=== PATIENT | female | born 1970 | race Caucasian/White ===

== ENCOUNTER 2023-10-09 11:15 | Outpatient (OUT) | payer MEDICARE, MEDICAID, SELFPAY ==
--- NOTE | 2023-10-09 11:34 | MM_ITS ---
Patient Name: HERMELINDO WEINBERG MR#: [id number] : 1970 Exam Date: 10/09/2023 Ordering Doctor: DR Chava Burciaga . RADIOLOGY REPORT PROCEDURE: MM TOMOSYNTHESIS SCREENING BI COMPARISON: MG MAMM KRUPA SCRN W CAD DIG, 05/23/2016. INDICATIONS: Screening Calculator Name NCI Breast Cancer Risk Assessment Tool 5 Year Breast Cancer Risk 0.90% Lifetime Breast Cancer Risk 7.80% Personal Breast Cancer No Personal Ovarian Cancer No Treatments None Family Cancers Father with prostate cancer at age ~70; Sister with pancreatic cancer at age 52; Aunt-paternal with colon cancer at age 70; Grandfather-maternal with lung cancer at age ~70; Grandmother-paternal with colon cancer at age ~70. LOCATION: [facility] BREAST COMPOSITION: Extremely dense, which lowers the sensitivity of mammography. FINDINGS: DIAGNOSTIC CATEGORY 2--BENIGN FINDING. NO CHANGE FROM COMPARISON. Scattered benign-appearing nodules are present. Scattered benign-appearing calcifications are present. Scattered benign-appearing lymph nodes are present. RIGHT BREAST: No significant suspicious finding. LEFT BREAST: No significant suspicious finding. Stable nodule upper outer quadrant, mid breast RECOMMENDATIONS: ROUTINE MAMMOGRAM AND CLINICAL EVALUATION IN 12 MONTHS. PLEASE NOTE: A NORMAL MAMMOGRAM DOES NOT EXCLUDE THE POSSIBILITY OF BREAST CANCER. A CLINICALLY SUSPICIOUS PALPABLE LUMP SHOULD BE BIOPSIED. Dictated by: Stephon Foote MD on 10/09/2023 at 13:35 Approved by: Stephon Foote MD on 10/09/2023 at 13:37
[2023-10-09 12:21] LABS: Basophils Absolute Auto 0.1 10^3/uL (0.0-0.1); Basophils Percent Auto 0.9 % (0.2-2.0); Eosinophils Absolute Auto 0.2 10^3/uL (0.0-0.7); Eosinophils Percent Auto 2.8 % (0.9-7.0); Hematocrit 35.5 % (36.0-48.0); Hemoglobin 11.5 g/dL (12.0-16.0); Immature Granulocytes Abs Auto 0.01 10^3/uL (0.00-0.03); Immature Granulocytes Pct Auto 0.2 % (0.0-0.5); Lymphocytes Absolute Auto 0.6 10^3/uL (1.2-3.8); Lymphocytes Percent Auto 11.1 % (20.5-60.0); Mean Corpuscular HGB Conc 32.4 g/dL (29.9-35.2); Mean Corpuscular Hemoglobin 27.3 pg (26.7-34.0); Mean Corpuscular Volume 84.3 fL (81.0-99.0); Mean Platelet Volume 9.2 fL (9.5-13.5); Monocytes Absolute Auto 0.6 10^3/uL (0.3-0.8); Monocytes Percent Auto 10.5 % (1.7-12.0); Neutrophils Absolute Auto 4.3 10^3/uL (1.4-6.5); Neutrophils Percent Auto 74.5 % (43.0-75.0); Platelet Count 351 10^3/uL (150-450); Red Blood Count 4.21 10^6/uL (4.20-5.40); Red Cell Distribution Width 13.2 % (11.0-15.0); White Blood Count 5.8 10^3/uL (4.0-11.0)
[2023-10-09 12:42] LABS: Estimated Average Glucose 137 mg/dL; Glycohemoglobin A1C 6.4 % (4.5-6.2)
[2023-10-09 12:55] LABS: Alanine Aminotransferase 21 U/L (14-59); Albumin Globulin Ratio 1.1; Albumin Level 3.5 g/dL (3.4-5.0); Alkaline Phosphatase 74 U/L (46-116); Anion Gap 9.7; Aspartate Amino Transferase 17 U/L (15-37); BUN Creatinine Ratio 23.2; Bilirubin Total 0.6 mg/dL (0.2-1.0); Calcium 9.4 mg/dL (8.5-10.1); Carbon Dioxide 35.1 mmol/L (21.0-32.0); Chloride 102 mmol/L (98-107); Chol HDL Ratio 2.1; Cholesterol 170 mg/dL (<=200); Estimated GFR (African America >60 (>=60); Estimated GFR (Non-African Ame >60 (>=60); Free T3 3.77 pg/mL (2.18-3.98); Globulin 3.2 g/dL; Glucose 130 mg/dL (74-106); HDL Cholesterol 81 mg/dL (40-60); Sodium 144 mmol/L (136-145); Thyroid Stimulating Hormone 0.501 uIU/mL (0.358-3.740); Total Protein 6.7 g/dL (6.4-8.2); Triglycerides 76 mg/dL (<=150); VLDL CHOLESTEROL 15.2 mg/dL
[2023-10-09 13:02] LABS: Potassium 2.8 mmol/L (3.5-5.1)
== END 2023-10-09 11:16 | disposition home or self-care (01) ==
PROVIDERS: PCP Family Medicine; Visit Provider Family Medicine
DX: Z12.31 Encounter for screening mammogram for malignant neoplasm of breast (principal); E11.9 Type 2 diabetes mellitus without complications; K58.9 Irritable bowel syndrome, unspecified; E78.5 Hyperlipidemia, unspecified; D64.9 Anemia, unspecified; E55.9 Vitamin D deficiency, unspecified; Z80.42 Family history of malignant neoplasm of prostate; Z80.8 Family history of malignant neoplasm of other organs or systems; Z80.0 Family history of malignant neoplasm of digestive organs; Z80.1 Family history of malignant neoplasm of trachea, bronchus and lung
CPT/HCPCS: 36415; 77063; 77067; 80053; 80061; 82306; 83036; 83540; 84436; 84443; 84481; 85025

== ENCOUNTER 2024-03-22 10:10 | Inpatient (IN) | payer MEDICARE, MEDICAID, SELFPAY ==
[2024-03-22] VITALS (16 sets, daily range): BP systolic 104–156; BP diastolic 77–102; PULSE 103–113; TEMP 36.2–36.7; O2SAT 95–99; BMI 21.3
--- NOTE | 2024-03-22 10:40 | CT_ITS ---
The [address] [address] Patient Name: HERMELINDO WEINBERG MRN: [id number] date: 1970 Sex: F Assigned Patient Location: ER Current Patient Location: Accession/Order Number: [id number] Exam Date: 03/22/2024 11:10 Report Date: 03/22/2024 12:09 At the request of: SKYLAR FIGUEREDO Procedure: CT abdomen pelvis w con EXAMINATION: CT abdomen pelvis w con HISTORY: Large left-sided abdominal wall abscess COMPARISON: No relevant comparison available. TECHNIQUE: Axial, Coronal, and Sagittal images were obtained without and/or with IV contrast as indicated by examination type. Dose reduction techniques were achieved by using automated exposure control and/or adjustment of mA and/or kV according to patient size and/or use of iterative reconstruction technique. FINDINGS: LUNG BASES: No visible pulmonary or pleural disease. LIVER: Irregular low density area within the hilum suspected represent collection of dilated bile ducts, with some extension more peripherally. Cholecystectomy. Dilated common bile duct with normal tapering distally. BILIARY: See above. PANCREAS: No lesion, fluid collection, or abnormal duct dilatation. SPLEEN: No enlargement or focal lesion. ADRENALS: No mass or enlargement. KIDNEYS: No mass, obstruction, or calcification. BOWEL/MESENTERY: No visible mass, obstruction, or bowel wall thickening. AORTA/VASCULAR: No aneurysm or dissection. RETROPERITONEUM: No mass or adenopathy. LYMPH NODES: No adenopathy. URINARY BLADDER: No visible focal wall thickening, lesion, or calculus. PELVIC ORGANS: Hysterectomy. ABDOMINAL WALL: Edema/inflammatory changes within subcutaneous fat of lower left anterior abdominal wall. No defined fluid collection, free air, or mass. Overlying skin thickening. BONES: No bony lesion or fracture. OTHER: Negative. CT/CT abdomen pelvis w con IMPRESSION: 1. Inflammatory changes within the lower left anterior abdominal wall subcutaneous fat and dermal layer consistent with patient history. No abscess. No involvement of the intraperitoneal structures. 2. Cholecystectomy and suspected dilated bile ducts within the liver hilum. No appreciable mass or obstructing stone. No prior studies for comparison. Electronically authenticated by: NEGRO BLACKMON Date: 03/22/2024 12:09
--- NOTE | 2024-03-22 10:41 | ED.GENADUL1 ---
HPI HPI - General Adult General Chief complaint: Skin/Abscess/Foreign Body Stated complaint: ABSCESS BY WAIST LINE Time Seen by Provider: 03/22/24 10:37 Source: patient Mode of arrival: walk-in Limitations: no limitations History of Present Illness HPI narrative: 54-year-old female presents to the emergency department for chief complaint of an abscess on her left abdominal wall. She has had this for more than a week but would not come in to get checked. She saw her PCP today who sent her here. There is been no drainage. It has been getting larger over the past several days. There is been no drainage and she has not had a fever. Related Data Home Medications ?Medication ?Instructions ?Recorded ?Confirmed buspirone 7.5 mg tablet 7.5 mg PO TID 03/22/24 03/22/24 carvedilol 12.5 mg tablet 12.5 mg PO TID 03/22/24 03/22/24 clonidine 0.3 mg/24 hr weekly 1 patch topical QWEEK 03/22/24 03/22/24 transdermal patch fesoterodine 4 mg tablet,extended 4 mg PO DAILY 03/22/24 03/22/24 release 24 hr meclizine 25 mg tablet 25 mg PO TID PRN dizziness 03/22/24 03/22/24 potassium chloride 10 mEq 10 meq PO BID 03/22/24 03/22/24 tablet,extended release rosuvastatin 5 mg tablet 5 mg PO QPM 03/22/24 03/22/24 tizanidine 4 mg tablet 8 mg PO TID 03/22/24 03/22/24 Allergies Allergy/AdvReac Type Severity Reaction Status Date / Time Penicillins Allergy Severe Verified 03/22/24 10:18 Sulfa (Sulfonamide Allergy Severe Hives Verified 03/22/24 10:18 Antibiotics) Opioid HPI Opioid Management Most Recent Opioid Data: Last ED Pain Assessment 03/22/24 10:43 Review of Systems ROS Narrative A ten point review of systems is negative except as noted above. [facility] Medical History (Updated 03/22/24 @ 12:44 by Bakari Forman MD) Multiple sclerosis ?G35 - Multiple sclerosis (ICD-10) HTN (hypertension) ?I10 - Essential (primary) hypertension (ICD-10) Exam Narrative Exam Narrative: Nurses note and vital signs reviewed and patient is not hypoxic. General: The patient appears well and in no apparent distress. Patient is resting comfortably on cart. Skin: Warm, dry, no pallor noted. There is no rash noted. Head: Normocephalic, atraumatic Ears, Nose, Mouth, and Throat: oral mucosa is moist. Nares patent. Cardiovascular: Regular Rate and Rhythm Respiratory: Patient is in no distress, no accessory muscle use, lungs are clear to auscultation, no wheezing, rales or rhonchi Back: non-tender GI: She has an area of erythema and induration and tenderness in the left lower abdomen. The area of induration is 16 cm transverse by 6 cm. Musculoskeletal: The patient has no evidence of calf tenderness, no pitting edema, symmetrical pulses noted bilaterally Neurological: Awake and Psychiatric: Cooperative Constitutional Vital Signs, click to edit/add: Last Vital Signs Temp 98.1 F 03/22/24 10:18 Pulse 103 H 03/22/24 11:52 Resp 16 03/22/24 11:52 BP 120/80 03/22/24 12:30 Pulse Ox 96 03/22/24 12:40 O2 Del Method Room Air 03/22/24 11:52 Course Vital Signs Vital signs: Vital Signs Temperature 98.1 F 03/22/24 10:18 Pulse Rate 113 H 03/22/24 10:18 Respiratory Rate 20 03/22/24 10:18 Blood Pressure 131/96 H 03/22/24 10:18 Pulse Oximetry 95 03/22/24 10:18 Oxygen Delivery Method Room Air 03/22/24 10:18 Temperature 98.1 F 03/22/24 10:18 Pulse Rate 103 H 03/22/24 11:52 Respiratory Rate 16 03/22/24 11:52 Blood Pressure 120/80 03/22/24 12:30 Pulse Oximetry 96 03/22/24 12:40 Oxygen Delivery Method Room Air 03/22/24 11:52 Medical Decision Making MDM Narrative Medical decision making narrative: WBC is elevated at 19,000. CT scan shows no collection of fluid, no evidence of an abscess. She was ordered IV vancomycin and is being admitted. Treatment diagnosis and disposition were discussed with the patient. Lab Data Lab results reviewed: Yes I reviewed the patient's lab results Labs: Lab Results 03/22/24 Range/Units 10:50 WBC 19.6 H (4.0-11.0) 10^3/uL RBC 4.56 (4.20-5.40) 10^6/uL Hgb 12.9 (12.0-16.0) g/dL Hct 39.7 (36.0-48.0) % MCV 87.1 (81.0-99.0) fL MCH 28.3 (26.7-34.0) pg MCHC 32.5 (29.9-35.2) g/dL RDW 15.2 H (11.0-15.0) % Plt Count 349 (150-450) 10^3/uL MPV 10.1 (9.5-13.5) fL Neut % (Auto) 87.2 H (43.0-75.0) % Lymph % (Auto) 3.3 L (20.5-60.0) % [place] % (Auto) 7.1 (1.7-12.0) % Eos % (Auto) 0.5 L (0.9-7.0) % Baso % (Auto) 0.3 (0.2-2.0) % Neut # (Auto) 17.1 H (1.4-6.5) 10^3/uL Lymph # (Auto) 0.7 L (1.2-3.8) 10^3/uL [place] # (Auto) 1.4 H (0.3-0.8) 10^3/uL Eos # (Auto) 0.1 (0.0-0.7) 10^3/uL Baso # (Auto) 0.1 (0.0-0.1) 10^3/uL Abs Immat Gran (auto) 0.31 H (0.00-0.03) 10^3/uL Imm/Tot Granulo (auto) 1.6 H (0.0-0.5) % Sodium 138 (136-145) mmol/L Potassium 3.8 (3.5-5.1) mmol/L Chloride 100 (98-107) mmol/L Carbon Dioxide 29.3 (21.0-32.0) mmol/L Anion Gap 12.5 BUN 26.0 H (7.0-18.0) mg/dL Creatinine 0.72 (0.55-1.02) mg/dL Est GFR ( Amer) >60 (>=60) Est GFR (Non-Af Amer) >60 (>=60) BUN/Creatinine Ratio 36.1 Glucose 380 H (74-106) mg/dL Lactate 1.9 (0.4-2.0) mmol/L Calcium 9.7 (8.5-10.1) mg/dL Imaging Data CT scan - abdomen: Radiologist's impression: ITS Impressions Abdomen/Pelvis CT 03/22/24 10:40 IMPRESSION: 1. Inflammatory changes within the lower left anterior abdominal wall subcutaneous fat and dermal layer consistent with patient history. No abscess. No involvement of the intraperitoneal structures. 2. Cholecystectomy and suspected dilated bile ducts within the liver hilum. No appreciable mass or obstructing stone. No prior studies for comparison. Electronically authenticated by: NEGRO BLACKMON Date: 03/22/2024 12:09 Discharge Plan Discharge Chief Complaint: Skin/Abscess/Foreign Body Clinical Impression: Cellulitis Patient Disposition: Admitted As Inpatient Time of Disposition Decision: 12:43 Condition: Fair
[2024-03-22 11:27] LABS: Basophils Absolute Auto 0.1 10^3/uL (0.0-0.1); Basophils Percent Auto 0.3 % (0.2-2.0); Eosinophils Absolute Auto 0.1 10^3/uL (0.0-0.7); Eosinophils Percent Auto 0.5 % (0.9-7.0); Hematocrit 39.7 % (36.0-48.0); Hemoglobin 12.9 g/dL (12.0-16.0); Immature Granulocytes Abs Auto 0.31 10^3/uL (0.00-0.03); Immature Granulocytes Pct Auto 1.6 % (0.0-0.5); Lymphocytes Absolute Auto 0.7 10^3/uL (1.2-3.8); Lymphocytes Percent Auto 3.3 % (20.5-60.0); Mean Corpuscular HGB Conc 32.5 g/dL (29.9-35.2); Mean Corpuscular Hemoglobin 28.3 pg (26.7-34.0); Mean Corpuscular Volume 87.1 fL (81.0-99.0); Mean Platelet Volume 10.1 fL (9.5-13.5); Monocytes Absolute Auto 1.4 10^3/uL (0.3-0.8); Monocytes Percent Auto 7.1 % (1.7-12.0); Neutrophils Absolute Auto 17.1 10^3/uL (1.4-6.5); Neutrophils Percent Auto 87.2 % (43.0-75.0); Platelet Count 349 10^3/uL (150-450); Red Blood Count 4.56 10^6/uL (4.20-5.40); Red Cell Distribution Width 15.2 % (11.0-15.0); White Blood Count 19.6 10^3/uL (4.0-11.0)
[2024-03-22 11:37] LABS: Anion Gap 12.5; BUN Creatinine Ratio 36.1; Calcium 9.7 mg/dL (8.5-10.1); Carbon Dioxide 29.3 mmol/L (21.0-32.0); Chloride 100 mmol/L (98-107); Estimated GFR (African America >60 (>=60); Estimated GFR (Non-African Ame >60 (>=60); Glucose 380 mg/dL (74-106); Potassium 3.8 mmol/L (3.5-5.1); Sodium 138 mmol/L (136-145)
[2024-03-22 11:44] LABS: Lactate/Lactic Acid 1.9 mmol/L (0.4-2.0)
[2024-03-22] MEDS: VANCOMYCIN HCL 1,000 MG in 0.9 % SODIUM CHLORIDE 250 ML 250 MG IV (12:55)
--- NOTE | 2024-03-22 13:10 | P.HP_ITS ---
HPI H&P: HPI History of Present Illness Chief complaint: ABSCESS BY WAIST LINE Narrative: Patient seen by my nurse practitioner in our office, referred to ER for possible abscess formation. Your workup just found cellulitis, but significant for dehydration and severe cellulitis with leukocytosis I saw patient in the emergency room, she was resting comfortably in the bed, just has pain with any activity. Area erythema was increasing in size was the reason for being evaluated. Opioid HPI Opioid Management Most Recent Opioid Data: Last Pain Assessment 03/23/24 08:00 Last ED Pain Assessment 03/22/24 10:43 Last ORT Total Score 0 03/22/24 14:09 Last ORT Risk Category Low Risk 03/22/24 14:09 Review of Systems ROS Status of ROS 10 or more systems reviewed and unremark able except as noted in history and below [facility] Medical History (Updated 03/22/24 @ 14:55 by Ayesha Moon) Encounter for cholecystectomy ?Z76.89 - Persons encountering health services in other specified circumstances (ICD-10) Multiple sclerosis ?G35 - Multiple sclerosis (ICD-10) HTN (hypertension) ?I10 - Essential (primary) hypertension (ICD-10) Surgical History (Updated 03/22/24 @ 14:55 by Ayesha Moon) H/O hysterectomy for benign disease ?Z90.710 - Acquired absence of both cervix and uterus (ICD-10) Social History (Updated 03/22/24 @ 14:56 by Ayesha Moon) Within the past year, how often did you have a drink containing alcohol: never Score interpretation: A score less than 3 is consistent with normal alcohol consumption. Smoking status: Never smoker Non-prescribed substance use: denies use Previous occupational history: disabled Meds Home Medications and Allergies Home Medications ?Medication ?Instructions ?Recorded ?Confirmed ?Type buspirone 7.5 mg tablet 7.5 mg PO TID 03/22/24 03/22/24 History carvedilol 12.5 mg tablet 12.5 mg PO TID 03/22/24 03/22/24 History clonidine 0.3 mg/24 hr weekly 1 patch topical QWEEK 03/22/24 03/22/24 History transdermal patch fesoterodine 4 mg tablet,extended 4 mg PO DAILY 03/22/24 03/22/24 History release 24 hr potassium chloride 10 mEq 10 meq PO BID 03/22/24 03/22/24 History tablet,extended release rosuvastatin 5 mg tablet 5 mg PO QPM 03/22/24 03/22/24 History tizanidine 4 mg tablet 8 mg PO TID 03/22/24 03/22/24 History Allergies Allergy/AdvReac Type Severity Reaction Status Date / Time Penicillins Allergy Severe Verified 03/22/24 10:18 Sulfa (Sulfonamide Allergy Severe Hives Verified 03/22/24 10:18 Antibiotics) Exam Constitutional Vital Signs, click to edit/add: Last Vital Signs Temp 98.1 F 03/22/24 10:18 Pulse 103 H 03/22/24 11:52 Resp 16 03/22/24 11:52 BP 120/80 03/22/24 12:30 Pulse Ox 96 03/22/24 12:40 O2 Del Method Room Air 03/22/24 11:52 Documenting provider has reviewed patient's vital signs: yes Common normals: no apparent distress Lymph Lymphatic: no lymphadenopathy noted Chest Common normals: inspection of chest normal Respiratory Common normals: normal respiratory effort and no retractions Cardio Common normals: regular rate and regular rhythm GI Common normals: negative for Normal to inspection, nondistended, normoactive erick wel sounds present (Erythema in groin, area with calor and dolor also) Results Labs Labs: Short CBC 03/22/24 Range/Units 10:50 WBC 19.6 H (4.0-11.0) 10^3/uL Hgb 12.9 (12.0-16.0) g/dL Hct 39.7 (36.0-48.0) % Plt Count 349 (150-450) 10^3/uL [facility] 03/22/24 10:50 Sodium 138 Potassium 3.8 Chloride 100 Carbon Dioxide 29.3 BUN 26.0 H Creatinine 0.72 Glucose 380 H Calcium 9.7 Assessment and Plan Assessment and Plan (1) Cellulitis: Plan Sinus tachycardia, leukocytosis, severely elevated sugar due to abdominal wall cellulitis, no abscess formation, start patient on IV antibiotics. Blood cultures pending. With erythema rapidly progressing concern for rapid spread along the abdominal wall. Need to be aggressive with the antibiotics IV. Hyperglycemia-patient not diagnosed with diabetes in the past. Sugar over 300 consistent with diabetes. Start patient on insulin sliding scale. Likely discharge home on oral medications. Dehydration which may be secondary to the diabetes and the abdominal wall cellulitis. IV fluids. Admission status: With the severity of the cellulitis and the rapid progression, concerning for the spreading along the abdominal wall. She would likely need 3 to 4 days of IV antibiotics. Medically necessary treatment will span 2 midnights. Inpatient status.
[2024-03-22 13:59] LABS: C Reactive Protein 4.31 mg/dL (<=0.50)
[2024-03-22 14:03] LABS: Alanine Aminotransferase 25 U/L (14-59); Albumin Globulin Ratio 0.7; Albumin Level 2.6 g/dL (3.4-5.0); Alkaline Phosphatase 122 U/L (46-116); Aspartate Amino Transferase 10 U/L (15-37); Bilirubin Direct 0.1 mg/dL (0.0-0.2); Bilirubin Total 0.7 mg/dL (0.2-1.0); Globulin 3.5 g/dL; Total Protein 6.1 g/dL (6.4-8.2)
[2024-03-22 14:05] LABS: Lactate/Lactic Acid 1.6 mmol/L (0.4-2.0)
--- OUTSIDE RECORDS SUMMARY | 2024-03-22 14:07 | XMS_ITS | CCD ---
Author Organization [facility] Care Team Providers Care Poultry Husbandman Name Role Phone ELTAHAWY, EHAB A Unavailable Unavailable ELTAHAWY, EHAB A Unavailable Unavailable HOY, KRISHAN Unavailable Unavailable HOY, KRISHAN Unavailable Unavailable HOY, DR NICKERSON Admitting Unavailable HOY, DR NICKERSON Attending Unavailable HOY, DR NICKERSON Primary Care Unavailable HOY, DR NICKERSON Consulting Unavailable MISC, DR HERNANDEZ Admitting Unavailable MISC, DR HERNANDEZ Attending Unavailable HOY, DR NICKERSON Primary Care Unavailable MISC, DR HERNANDEZ Consulting Unavailable ZIEBER, DR NEGRO Quan Consulting Unavailable MISC, DR HERNANDEZ Admitting Unavailable MISC, DR HERNANDEZ Attending Unavailable HOY, DR NICKERSON Primary Care Unavailable MISC, DR HERNANDEZ Consulting Unavailable HOY, DR NICKERSON Admitting Unavailable HOY, DR NICKERSNO Attending Unavailable HOY, DR NICKERSON Primary Care Unavailable Marshal Padilla Referring Unavailable Marshal Padilla Attending Unavailable Marshal Padilla Admitting Unavailable MARSHAL PADILLA Attending Unavailable MARSHAL PADILLA Attending Unavailable Allergies Allergy Classification Reported Allergen(s) Allergy Type Date of Onset Reaction(s) Facility (1 source) Penicillins Drug allergy (disorder) 06-02-2015 [facility] Repository (2 sources) Sulfonamides (Antibiotic) Drug allergy (disorder) 09-14-2013 [facility] Repository (1 source) hydrALAZINE Drug Allergy 04-15-2021 [facility] Repository (1 source) Penicillin Drug Allergy 09-14-2013 [facility] Repository Problems Active Problems Problem Classification Problem Date Documented Da te Episodic/Chronic Diabetes mellitus without complication (1 source) Type 2 diabetes mellitus without complications; Translations: [TYPE 2 DM WITHOUT COMPLICATIONS] Onset: 11-17-2022 Chronic Essential hypertension (1 source) Essential (primary) hypertension; Translations: [ESSENTIAL PRIMARY HYPERTENSION] Onset: 11-17-2022 Chronic Multiple sclerosis (4 sources) Multiple sclerosis; Translations: [MULTIPLE SCLEROSIS] Onset: 10-09-2022 Chronic Nutritional deficiencies (1 source) Vitamin D deficiency, unspecified; Translations: [VITAMIN D DEFICIENCY UNSPECIFIED] Onset: 11-17-2022 Chronic Other circulatory disease (4 sources) Stricture of artery; Translations: [STRICTURE OF ARTERY] Onset: 06-26-2016 Chronic Unclassified (2 sources) Unknown / UNK(Unknown) Onset: 06-26-2016 Past or Other Problems Problem Classification Problem Date Documented Da te Episodic/Chronic Nonspecific chest pain (1 source) Chest pain, unspecified; Translations: [CHEST PAIN, UNSPECIFIED] Onset: 06-26-2016 Episodic Unclassified (1 source) Other general symptoms and signs; Translations: [OTHER GENERAL SYMPTOMS AND SIGNS] Onset: 06-26-2016 Episodic Results Test Name Value Interpretation Reference Range Facility PT - Assessmentson PT - Assessments [id number]#1 .00CD:127 Normal [facility] Coding Summary.on 11-18-2022 Coding Summary. CD:[id number] G h0bWw+PGhlYWQ+QI0RYSX fF70tbUCypK3AB0vNNI7K XZUXYBLDME1ZBC2nqYL0C MozV6MeryEf MseppCQdET66OCh6NOP0o SzuRDvyiC6yoUTvY2m8Hh BmMO74nU58IItmQYQzFoU 3LjZpbjsgbWFy A9siZbOcmIHwWfi+PHRhY mxlIHdpZHRoPScxMDAlJy GbzCbiZJ5mPd5zJSDmNDK vbGxhcHNlOiBj o5nkHUKpNZlrFB6qyYrdJ 9LssIB2PVEiw0s3St51zK I+NQNfPWR2eTaeGKanw58 3QjYdi2ckNWS5 sYDpGWguFNV3V42qo8S3E RNeFLQlMDJ5wWQ5oW9gnB xlaqyuE3YeoCCaDuG9XUT 9zBVyuD7pnNpo yyyorA8pNey+U81TRB0MJ XHQWT7SMvm9O7JgEovvbK I+AW38ZOUoBG22dNRzkVY oq6yfbIm3HtAp LXJvBUJ2zFjlFQclv7ArS PMnO57hkYIwj8Q6ONAhgN hxzDCtEiHhfZZ4bK1rZGr druaof3ccbtdt Xscbp9fdgg88eK70I07vS RyyQFOjCBZ9GBCyVLFhhS jncw3wyF4mTo2+JLanb5s dv6iuiWe5PqBi OUWuljTihQypSLH0d8XrZ k00O8KoiXopv0QfFqs3jz 65wEPgw3Y8xNA5JCknAQC qqX6jQOonNbS0 NYXiAhDjqJ05eVMwKDpuB g2hhUmzaYgcZA6mSPSmiw adSHXgbT3oNHOvhXCxqJk xDD1pUBSaldqt z165CmLgTDR4RONhjBVyS 2UclN5uKkQwNXKaSLKwO4 UudBSqLGocM124PJbdHsC 6NVXvduRmF3Ct URAktJpeWdT4k1B6Fe8Zy 3ImnhenSKG8LLtjWVUwGl E0HsZaQdN0F6GnTjd1KAD ogOzmCE2zS4Md UQOyeycmltloqUU0ABUkZ MVniH04tZEzYPluRu6ft7 V3a179NFClCKCcvV15Hy0 udDogMTBwdCBU kE3mxhnsh9alzamvFvSuA ZZtAHw5QPp9NKBwyIgaQy XjDWC3UvJ1MVT6eIVehD3 cvBlkjfcfnS0k Oyc+B85lwH8xWRM6JTV6s qaeUZViavHcDC18RP51U7 RyPjwvdGFibGU+PGRpdiB iaLmrZN3gPqXv f0htn6AyUXxdX3DkIGBgG AdwDsz9TURpPTS7oJO9hH 0hPUBmSFcts8K4qWC9K2I kahAysx6ez9je WFYuDJqkH18dkWJib9J1B LYayXS0QGFmdWshDkTwnH 93Oyc+FYZtpSyuu3FpVzv bh2oio6xehRd0 AvCmFFScccZgmYdkXDW6x 1ZqHj45U81hDIbpCQAaTS ZeJMZnXXWskHacwv9tvW3 wIi8+PGNvbCB3 pJN8qF6eLYFkBoK0SOwwE 272FtVkuPYhXgglu7awe3 xjcPj3TlQhQSLxrtDsdWr uELR9y1SyJk81 Y86xNTdyGINxSXMjSEIrC KJwdTrnlk7boA6oNm3+PC 6ak2qlbx65zO58vIX+PHR gEPJ0uItdPUmi MNXskB7bAVzfBwP8QYAnT wRxoK79lVWjCLkrLv3erK qkwZgbNN5gWLUjqomlj94 1JcFhl8hePSSg hMOcOFgwPIR0L59sk8D2B SBoGQDvRXG1yRY0rJ4pdG lnbjogbGVmdDsgdmVydGl xRVefDOdxA147 IHRvcDsnPlBhdGllbnQgT tRzOJd2W9PkLio6CURkoD euZQ0pqLToZIvyLk0keHa sfWuvJB9zVVAz xwusb383CqXmj0tcMLYnt SZmWLfoIHW4G63ho9U0UY HfPKNwONI7zPU4tE9myHm nbjogbGVmdDsg wiMqyMetJBwzJLesP435Z HRvcDsnPkJpcnRoIERhdG E8YF67GY90oDNky4F0aRT 1H3SiLOSkajjr pdghxWM4URQhCZKwoX96J e9qjKgePy6tEUXeWSA0UT IzlVMvO7WanO2rPiFgHBV nFKCcQ0WoaWRm ZImkE472ZPzuRaD9GJThn vZuE9GiIDOrtDubVbG5g1 M9Bl1FJ8B0WL30TC79rHP oy2K8pHF7I3Ev HMEejtrvyzunmRA1QJUnQ ZPbdE41Tu3rfUsbDl4kXJ MzJKB9CTXpyEPfG6AmdW9 yOiAjMDAwMDAw V5AazPGdLBjsY501TFtoC uI2DGLbksFcM6OrGNWasB mzFwW4d5O6Mq6BJTd7PT5 7IF22wSIbz3A0 yDF2C0HbMLBbxwfrdyzdc GG7EKIuSELjiP31Un3gbY fgEb0eKDArSTV5CHQutMQ mL2JswQ8xOaZo WIReLVAiS4SlcMPzTOetL 093LJzeXiF1SORjgoSpS3 YnNZQfbZrzPwF1t6Y6Hi1 DXCOgKH46BIJ6 xRC7KQ53VK18I6RiDaobv GFibGU+PHRhYmxlIHdpZH RoPScxMDAlJyBzdHlsZT0 zQt1tMUVrIVXq rAvicTBqOrGne2asPCYgM EvqDN7qkYdqZ4BhqOO6FQ Ikw2e3Pd58V95mC2OpaQA +QVUbtLW7mXD9 rQ0fVsWcArH2CYqwS226I wWloRBaIrbky5eok9bnmL o3BcL3QOKuveSddEfbXTH 4m7KvWc17M91z IHdpZHRoPSIxNSUiIHZhb Tgdyn4pmU1xQu3+PGNvbC N6mIU0iT7dRyTjTwA3XVv yM269FzDliESi Xvojz9xjs2frwAd6OrWmE LAnsjBlfPxyUWL6p5OlGs 64Y2VwqQsod1PhJeb5ga9 6jMOgw6Q3fAG7 N2JxETLvdvrpyRFmcIwsS W2vWLWtgdyyORDbgO0tVL AnU1j4FlCcHcZ8WJanZ2E ercM0BSCciQPz DKweDNB1V62sf8N8BUHzB BAsGFM4dHW0dX1nqLphkd ogbGVmdDsgdmVydGljYWw hRBemJ363FVCa cTreWBOgkJ7yWSDtnNWbp OzuYK5lHMQdmteyFmKYSR rLFWTYR5OGDsUUEE90HT5 0mGEoe7Q1uYP1 W2LtRTHggvfbgmsjgND9W GYaADIgvX44gFIcTVgxDb 3lw7M5q851QSBgLQCboK9 9Sa3yjJkfDPYx oPZZgS6fipaiw0bnlvkyI bZcNLDiBNw9BFc7VHDpdH qqUpOmKNP9XkL3MNP6yKI utW4baTvkcakm oS7wQgy+ZYOiYAsjXMh0P TwvdGQ+AKGfOMV4bIfhMC hzTCCkdR5fGRLeD6u4SjL qSqV0AVvmH0Ny JIIxhxjmAv17kR0aDzVqK zD6KPoiZ7BohvA3VWFofL UwSPqfUSV8Z67jy4N9ZEM wEBNdTAF8qWY2 lS4whTvuauugcSQkpByhh kLdxKedXVzgFWwhO146PN RvcDsnPjUxIFllYXJzPC9 2US16kUSdl8P0 dSS8Y5LbTUBsbcmygmbfy ZZ9EOGuSIMzpD12vBOmVL zlUr9gb5S4p699TYWrYBC cbE85Au1qrCpg UPQuoYEXiU1jxygph5zwr tcmLaKjZKVcCKo6RRi4JV XscZddOzAtBBC1BwQ6WGG 4eYBruA1sqQoa xizsxV2xPrn+RmVtYWxlP K86GH66vLPqm0R7aKP6V7 MyZRLisaebvfwtrZB9JHH hODUigE17eZCg YMlfTc9ij4X1g789OSBfU LFoxI52Mf7jiFffQBGinE JNnK6wftekx3hinqzyBwR zKXQaBLw3NEs9 SJLezIzeVaPbSQQ5IkH3R UJ6kOGxiL1ftDtqrkndkM 9wOyc+IpGftAFpxN1sTB8 1TX99Q3FwHspc dGFibGU+PHRhYmxlIHdpZ HRoPScxMDAlJyBzdHlsZT 9pFo4iBYMqINFdoRqmyBC aPlAel4gkDOUt UNfyBQ6pmIzvX8EocWJ4C KArt3p1Ve11A60bQ9UctX A+NEYcmOP5jLI1nQ8eEmS wPyG4EPjvD570 VeZfqGBkJbwzd6aeo2yxa Ig4JtRhSQVudiDinPehAO L7v8GkZt79D73yVIvgOTY oPSIyMCUiIHZh tKoohy6neR0bDc2+PGNvb SK8aQW1oW7wGmYyKmK2KO tsM783AnSwqAOqWogoJ84 jA3GqtNR+PHRy Pvb4SOXjuAuvBQ1vzDEgW AceSo6jJCB7OkIhJqDdQA ciA6VpSCAiwwunylnqmED 6BSIfUSQaeH41 Jy4yyOeaRk9xUPPuKMP3Z CIixWCuZ1UpdR1kZuUlKO ZvSOAaY0LqmGKoJUcwZ54 0NEutNrV7AXPj afXpN0DuACDnfFhaXaP3z 7V4Rj8NyOfumULpPI9aVw WsNWq9U8CrJcw9NPGmbXf zMU4ygQCkXXko Lu7icHxaaLcuTX9nSUUqy wvgd910GxCot3iiSOLqoK FjTPquPCN5N38oe6V7LZW hRVOwJFU8eMI8 uA2arOrbdndicCGczJkdk wYjgIfsAPlpDTziR338JV AeiFikPhBSIlj3W1GfDwu 8NXDxlWfjTO8s sYGpDIveNu6fsAuziSxbZ Q5gSEFmotdkx611EmOpm8 niATQmaJIcOXouPFN3K23 xo1W8XUEmEHXk IIQ3yWO0oQ1nhLexpczxw GVmdDsgdmVydGljYWwtYW yyS149OIWzbQcoDl7YYkz 4E7VnMea1JLDp fHmaBP4xuISsPKuzGn9dy ElxkPxtQR5aVWCsmwdro0 28GnEhw1icXSDecTXqMQw iHIM7O13jn2G3 FXLaTGRkLWE8wCQ8aH5vb GlnbjogbGVmdDsgdmVydG ypMFwpRDwxP226WOQhpCw nPlBheWVyOjwv dGQ+EW50ez50W0EeEwjtX aw0BCMiTLD7cTM3eV5cZW CmFPwvh5U8tIK2N5JnojD uws8gp6bkBAMe ZTog (more content not included)... Normal [facility] Insurance Correspondenceon 0 11-18-2022 Insurance Correspondence [id number]# 1.00CD:[address] [facility] Consent for Treatmenton 11-02 Consent for Treatment [id number]#1 .00CD:[address] [facility] PT - Orderson 11-17-2022 PT - Orders [id number]#1 .00CD:[address] [facility] CBC AUTO DIFFon 11-04-2022 BASO # 0.0 103/ul Normal 0.0-0.1 [facility] Comment on above: Performed By: #### C BC ####[facility] [address] [place] [id number]. Linnea Jane Basophils/100 WBC (Bld) 0.3 % Normal 0.2-2.0 [facility] Comment on above: Performed By: #### C BC ####[facility] [address] [place] [id number]. Linnea Jane EO # 0.2 103/ul Normal 0.0-0.7 [facility] Comment on above: Performed By: #### C BC ####[facility] [address] [place] [id number]. Linnea Jane Eosinophils/100 WBC (Bld) 3.3 % Normal 0.9-7.0 [facility] Comment on above: Performed By: #### C BC ####[facility] [address] [place], [place] [address]Dr. Linnea Jane Erythrocyte distribution width (RBC) [Ratio] 13.7 % Normal 11.0-15.0 [facility] Comment on above: Performed By: #### C BC ####[facility] [address] [place], [place] [id number]. Linnea Jane Hematocrit (Bld) [Volume fraction] 37.1 % Normal 36.0-48.0 [facility] Comment on above: Performed By: #### C BC ####[facility] [address] [place], [place] [id number]. Linnea Jane Hemoglobin (Bld) [Mass/Vol] 12.2 g/dL Normal 12.0-16.0 [facility] Comment on above: Performed By: #### C BC ####[facility] [address] [place] [id number]. Linnea Jane IG # 0.06 10e3/ul Critically high 0.00-0.03 [facility] Comment on above: Performed By: #### C BC ####[facility] [address] [place] [id number]. Linnea Jane IG % 1.0 % Critically high 0.0-0.5 [facility] Comment on above: Performed By: #### C BC ####[facility] [address] [place] [id number]. Linnea Jane LYMPH # 0.4 103/ul Critically low 1.2-3.8 [facility] Comment on above: Performed By: #### C BC ####[facility] [address] [place] [id number]. Linnea Jane Lymphocytes/100 WBC (Bld) 6.8 % Critically low 20.5-60.0 [facility] Comment on above: Performed By: #### C BC ####[facility] [address] [place] [id number]. Linnea Jane MANUAL DIFF REQ NO Normal [facility] Comment on above: Performed By: #### C BC ####[facility] [address] [place] [id number]. Linnea Jane MCH (RBC) [Entitic mass] 28.4 pg Normal 26.7-34.0 [facility] Comment on above: Performed By: #### C BC ####[facility] [address] [place] [id number]. Linnea Jane MCHC (RBC) [Mass/Vol] 32.9 g/dL Normal 29.9-35.2 [facility] Comment on above: Performed By: #### C BC ####[facility] [address] [place] [id number]. Linnea Jane MCV (RBC) [Entitic vol] 86.5 fL Normal 81.0-99.0 [facility] Comment on above: Performed By: #### C BC ####[facility] [address] [place] [id number]. Linnea Jane MONO # 0.7 103/ul Normal 0.3-0.8 [facility] Comment on above: Performed By: #### C BC ####[facility] [address] [place] [id number]. Linnea Jane Monocytes/100 WBC (Bld) 11.3 % Normal 1.7-12.0 [facility] Comment on above: Performed By: #### C BC ####[facility] [address] [place] [id number] Contrerasbelem Jane NEUT # 4.5 103/ul Normal 1.4-6.5 [facility] Comment on above: Performed By: #### C BC ####[facility] [address] [place] [id number] Jane Neutrophils/100 WBC (Bld) 77.3 % Critically high 43.0-75.0 [facility] Comment on above: Performed By: #### C BC ####[facility] [address] [place] [id number] Jane Platelet mean volume (Bld) [Entitic vol] 9.0 fL Critically low 9.5-13.5 [facility] Comment on above: Performed By: #### C BC ####[facility] [address] [place] [id number]. Linnea Jane PLT 429 103/ul Normal 150-450 [facility] Comment on above: Performed By: #### C BC ####[facility] [address] [place] [id number] Jane RBC 4.29 106/ul Normal 4.20-5.40 [facility] Comment on above: Performed By: #### C BC ####[facility] [address] [place] [id number] Jane WBC 5.8 103/ul Normal 4.0-11.0 [facility] Comment on above: Performed By: #### C BC ####[facility] [address] [place], [place] [address]OoDr. Linnea Jane FREE T3on 11-04-2022 FREE T3 2.58 pg/mlL Normal 2.18-3.98 [facility] Comment on above: Performed By: #### C MP, FT3, LIPID, T4, TSH #### [facility] [address] [place], [place] [address] Dr. Linnea Jane GLYCOHEMOGLOBIN A1Con 2022 ADA RECOMMENDATION SEE BELOW Normal [facility] Comment on above: Result Comment: ADA RECOMMENDED LIMIT 4.0 - 6.0 ADA THERAPEUTIC TARGET < 7.0 ACTION SUGGESTED > 7.0 Performed By: #### A 1C #### [facility] [address] [place] [address] Dr. Linnea Jane Glucose [Mass/Vol] 151 mg/dL Normal [facility] Comment on above: Performed By: #### A 1C #### [facility] [address] [place] [address] Dr. Linnea Jane HbA1c (Bld) [Mass fraction] 6.9 % Critically high 4.5-6.2 [facility] Comment on above: Performed By: #### A 1C #### [facility] [address] [place] [address] Dr. Linnea Jane LIPID PROFILEon 11-04-2022 CHOL-HDL RATIO NORM SEE BELOW Normal [facility] Comment on above: Result Comment: 3.3 - 4.4 LOW RISK 4.4 - 7.1 AVERAGE RISK 7.1 - 11.0 MODERATE RISK >11.0 HIGH RISK Performed By: #### C MP, FT3, LIPID, T4, TSH #### [facility] [address] [place] [address] Dr. Linnea Jane Cholesterol [Mass/Vol] 174 mg/dL Normal <=200 [facility] Comment on above: Performed By: #### C MP, FT3, LIPID, T4, TSH #### [facility] [address] [place] [address] Dr. Linnea Jane Cholesterol in HDL [Mass/Vol] 74 mg/dL Critically high 40-60 [facility] Comment on above: Performed By: #### C MP, FT3, LIPID, T4, TSH #### [facility] [address] [place] [address] Dr. Linnea Jane Cholesterol in LDL [Mass/Vol] 82.2 mg/dL Normal [facility] Comment on above: Performed By: #### C MP, FT3, LIPID, T4, TSH #### [facility] [address] [place] [address] Dr. Linnea Jane Cholesterol.total/Cho lesterol in HDL [Mass ratio] 2.4 {ratio} Normal [facility] Comment on above: Performed By: #### C MP, FT3, LIPID, T4, TSH #### [facility] [address] [place] [address] [address] Linnea Jane HDL NORMAL > or = 60 mg/dl - LO W CARDIOVASCULAR RISK <40 mg/dl - HIGH CARDIOVASCULAR RISK Normal [facility] Comment on above: Performed By: #### C MP, FT3, LIPID, T4, TSH #### [facility] [address] [place] [address] [address] Linnea Jane LDL CALC NORMAL SEE BELOW Normal [facility] Comment on above: Result Comment: <100 mg/dl OPTIMAL 100 - 129 mg/dl NEAR OR ABOVE OPTIMAL 130 - 159 mg/dl BORDERLINE HIGH 160 - 189 mg/dl HIGH >190 mg/dl VERY HIGH Performed By: #### C MP, FT3, LIPID, T4, TSH #### [facility] [address] [place] [address] [address] Linnea Jaen Triglyceride [Mass/Vol] 89 mg/dL Normal <=150 [facility] Comment on above: Performed By: #### C MP, FT3, LIPID, T4, TSH #### [facility] [address] [place] [address] [address] Linnea Jane VLDL CALC 17.8 mg/dL Normal [facility] Comment on above: Performed By: #### C MP, FT3, LIPID, T4, TSH #### [facility] [address] [place] [place] [address] [address] Linnea Jane PROF 14(COMP METB)on 023 Albumin [Mass/Vol] 3.2 g/dL Critically low 3.4-5.0 [facility] Comment on above: Performed By: #### C MP, FT3, LIPID, T4, TSH #### [facility] [address] [place] [address] Dr. Linnea Jane Albumin/Globulin [Mass ratio] 1.0 {ratio} Normal [facility] Comment on above: Performed By: #### C MP, FT3, LIPID, T4, TSH #### [facility] [address] [place] [address] Dr. Linnea Jane ALP [Catalytic activity/Vol] 77 U/L Normal 46-116 [facility] Comment on above: Performed By: #### C MP, FT3, LIPID, T4, TSH #### [facility] [address] [place] [address] Dr. Linnea Jane ALT [Catalytic activity/Vol] 36 U/L Normal 14-59 [facility] Comment on above: Performed By: #### C MP, FT3, LIPID, T4, TSH #### [facility] [address] [place] [address] Dr. Linnea Jane Anion gap [Moles/Vol] 9.7 mmol/L Normal [facility] Comment on above: Performed By: #### C MP, FT3, LIPID, T4, TSH #### [facility] [address] [place] [address] Dr. Linnea Jane AST [Catalytic activity/Vol] 20 U/L Normal 15-37 [facility] Comment on above: Performed By: #### C MP, FT3, LIPID, T4, TSH #### [facility] [address] [place] [address] Dr. Linnea Jane Bilirubin [Mass/Vol] 0.5 mg/dL Normal 0.2-1.0 [facility] Comment on above: Performed By: #### C MP, FT3, LIPID, T4, TSH #### [facility] [address] [place] [address] Dr. Linnea Jane Calcium [Mass/Vol] 9.3 mg/dL Normal 8.5-10.1 [facility] Comment on above: Performed By: #### C MP, FT3, LIPID, T4, TSH #### [facility] [address] [place] [address] Dr. Linnea Jane Chloride [Moles/Vol] 104 mmol/L Normal 98-107 [facility] Comment on above: Performed By: #### C MP, FT3, LIPID, T4, TSH #### [facility] [address] [place], [place] [id number] Dr. Linnea Jane CO2 [Moles/Vol] 31.7 mmol/L Normal 21.0-32.0 [facility] Comment on above: Performed By: #### C MP, FT3, LIPID, T4, TSH #### [facility] [address] [place] [address] Dr. Linnea Jane Creatinine [Mass/Vol] 0.63 mg/dL Normal 0.55-1.02 [facility] Comment on above: Performed By: #### C MP, FT3, LIPID, T4, TSH #### [facility] [address] [place] [address] Dr. Linnea Jane EGFR-AF CYMRO >60 Normal >=60 [facility] Comment on above: Performed By: #### C MP, FT3, LIPID, T4, TSH #### [facility] [address] [place] [address] Dr. Linnea Jane EGFR-NON AF CYMRO >60 Normal >=60 [facility] Comment on above: Performed By: #### C MP, FT3, LIPID, T4, TSH #### [facility] [address] [place] [address] Dr. Linnea Jane Globulin (S) [Mass/Vol] 3.1 g/dL Normal [facility] Comment on above: Performed By: #### C MP, FT3, LIPID, T4, TSH #### [facility] [address] [place] [address] Dr. Linnea Jane Glucose [Mass/Vol] 131 mg/dL Critically high 74-106 T [facility] Comment on above: Performed By: #### C MP, FT3, LIPID, T4, TSH #### [facility] [address] [place] [address] Dr. Linnea Jane Potassium [Moles/Vol] 3.4 mmol/L Critically low 3.5-5.1 [facility] Comment on above: Performed By: #### C MP, FT3, LIPID, T4, TSH #### [facility] [address] [place] [address] Dr. Linnea Jane Protein [Mass/Vol] 6.3 g/dL Critically low 6.4-8.2 Th [facility] Comment on above: Performed By: #### C MP, FT3, LIPID, T4, TSH #### [facility] [address] [place] [address] Dr. Linnea Jane Sodium [Moles/Vol] 142 mmol/L Normal 136-145 [facility] Comment on above: Performed By: #### C MP, FT3, LIPID, T4, TSH #### [facility] [address] [place] [address] Dr. Linnea Jane Urea nitrogen [Mass/Vol] 22.0 mg/dL Critically high 7.0-18.0 [facility] Comment on above: Performed By: #### C MP, FT3, LIPID, T4, TSH #### [facility] [address] [place] [address] Dr. Linnea Jane Urea nitrogen/Creatinine [Mass ratio] 34.9 mg/mg Normal [facility] Comment on above: Performed By: #### C MP, FT3, LIPID, T4, TSH #### [facility] [address] [place] [address] Dr. Linnea Jane T4on 11-04-2022 T4 [Mass/Vol] 8.50 ug/dL Normal 4.80-13.90 [facility] Comment on above: Performed By: #### C MP, FT3, LIPID, T4, TSH #### [facility] [address] [place] [address] Dr. Linnea Jane TSHon 11-04-2022 TSH 0.590 uIU/mL Normal 0.358-3.740 [facility] Comment on above: Performed By: #### C MP, FT3, LIPID, T4, TSH #### [facility] [address] [place] [address] Dr. Linnea Jane VITAMIN D 25 OHon 11-04-2022 VIT D 25-OH 140.4 ng/mL Normal [facility] Comment on above: Performed By: #### V ITAD #### [facility] [address] [place] [address] Dr. Linnea Jane VIT D RANGES SEE BELOW Normal [facility] Comment on above: Result Comment: <20 ng/mL Vit D deficient 20 - <30 ng/mL Vit D insufficient 30 - 100 ng/mL Vit D sufficient >100 ng/mL Potential Toxicity Performed By: #### V ITAD #### [facility] [address] [place] [address] [id number] [address] Linnea Jane HEPATITIS B CORE, IgMon 12-0 Hep B Core Ab, IgM Negative Normal Negative [facility] Comment on above: Performed By: #### H EPBCOR #### [facility] [address] [place], [place] [address] Dr. Linnea Jane MRI BRAIN WO W CONon 022 MRI BRAIN WO W CON EXAMINATION: MRI BRAIN WO W CON HISTORY: Multiple sclerosis COMPARISON: MRI brain 06/17/2019 TECHNIQUE: A variety of imaging planes and parameters were utilized for visualization of suspected pathology. Images were performed without and with ml Dotarem contrast. FINDINGS: CEREBRUM: Multiple T2 hyperintensities within the periventricular deep white matter showing slight progression since prior study. Restricted diffusion within the lesion adjacent the posterior horn of the right lateral ventricle and left lateral ventricle, however, no enhancement of the lesions. CEREBELLUM: No edema, hemorrhage, mass, acute infarction, or inappropriate atrophy. BRAINSTEM: No edema, hemorrhage, mass, acute infarction, or inappropriate atrophy. CSF SPACES: Ventricles, cisterns, and sulci are appropriate for age. No hydrocephalus, subarachnoid hemorrhage, or mass. SKULL: No mass or other significant visible lesion. SINUSES: Limited views demonstrate no significant mucosal thickening or fluid. ORBITS: Limited views are unremarkable. OTHER: No abnormal meningeal or parenchymal enhancement. IMPRESSION: 1. Findings consistent with multiple sclerosis with slight progression since prior study. A lesion demonstrates restricted diffusion within right parietal and left parietal lobes consistent with recent demyelination, but no enhancement to suggest active demyelination. Electronically authenticated by: NEGRO BLACKMON Date: 2022-09-17 07:22 Normal [facility] XR FOREIGN BODY EYEon 2021 XR FOREIGN BODY EYE EXAMINATION: XR FOREIGN BODY EYE HISTORY: Foreign body in eye ; pre-MRI COMPARISON: No relevant comparison available. FINDINGS: ORBITS: Negative for a metallic foreign body. OTHER: Negative. IMPRESSION: 1. No metallic foreign body within the orbits. Electronically authenticated by: NEGRO BLACKMON Date: 2022-09-16 15:08 Normal [facility] Encounters Encounter Date Encounter Type Care Provider Facility Start: 02-17-2024 End: 02-17-2024 ambulatory MARSHAL PADILLA Not Available Start: 11-16-2023 End: 11-16-2023 ambulatory MARSHAL PADILLA Not Available Start: 11-17-2022 Encounter for genera l adult medical examination without abnormal findings DR KRISHAN SANABRIA [facility] Start: 11-17-2022 End: 02-16-2023 ambulatory Marshal Padilla Facility:[facility] [place] Start: 11-04-2022 End: 11-05-[address] KRISHAN SANABRIA Facility:[facility] Start: 11-04-2022 End: 11-05-2022 Encounter for general adult medical examination without abnormal findings DR KRISHAN SANABRIA Facility:[facility] Start: 10-09-2022 End: 10-10-[address] DOCTOR WINKLER Facility:[facility] Start: 09-16-2022 End: 09-17-[address] DOCTOR WINKLER Facility:[facility] Start: 12-31-[address] KRISHAN SANABRIA Facility :[facility] Start: 06-26-2016 End: 06-27-2016 Ambulatory LELE BAZAN Facility:[facility] Payers Date Payer Category Payer Unknown [id number] 2.16.84 [id number] 1970 Unknown [id number] 2.16.84 [id number] 1971 Unknown [id number] 2.16.84 [id number] 1971 Unknown [id number] 2.16.84 [id number] 1971 Unknown [id number] 2.16.8 [id number] 1971 Unknown [id number] 2.16.84 [id number] 1971 Unknown [id number] 2.16.84 [id number] 1958 Medicaid [id number] 1958 Medicare [id number] 1958 Self-pay Medicare [id number] Summary Purpose Family History No Family History Records FoundNo Family History Records FoundNo Family History Records FoundNo Family History Records Found Advance Directives No Advanced Directives Records FoundNo Advanced Directives Records FoundNo Advanced Directives Records FoundNo Advanced Directives Records Found Additional Source Comments INFORMATION SOURCE (unrecogn ized section and content) DATE CREATED AUTHOR 04/28/2018 [facility] DATE CREATED AUTHOR AUTHOR'S ORGANIZ ATION 11/18/[address] [facility] DATE CREATED AUTHOR AUTHOR'S ORGANIZ ATION 02/16/2023 [facility] DATE CREATED AUTHOR AUTHOR'S ORGANIZ ATION 02/18/2024 [facility] Special[facility] FOR RECORDS PERTAINING TO PATIENTS WHO ARE OR HAVE BEEN ENROLLED IN A CHEMICAL DEPENDENCY/SUBSTANCEABUSE PROGRAM, SOME INFORMATION MAY BE OMITTED. This clinical summary was aggregated from multiple sources. Caution should be exercised in using it in the provision of clinical care. This summary normalizes information from multiple sources, and as a consequence, information in this document may materially change the coding, format and clinical context of patient data. In addition, data may be omitted in some cases. CLINICAL DECISIONS SHOULD BE BASED ON THE PRIMARY CLINICAL RECORDS. [facility] [employer] [facility]. provides no warranty or guarantee of the accuracy or completeness of information in this document.
[2024-03-22 14:33] LABS: Glucometer 278 mg/dL (74-106)
[2024-03-22] MEDS: BUSPIRONE HCL 15 MG TABLET 7.5 MG PO ×2 (14:37→21:07)
[2024-03-22] MEDS: TIZANIDINE HCL 4 MG TABLET 8 MG PO ×2 (14:37→21:07)
[2024-03-22] MEDS: CARVEDILOL 12.5 MG TABLET PO ×2 (14:37→21:07)
[2024-03-22] MEDS: LACTATED RINGER'S SOLUTION 1,000 ML 100 ML IV (14:38)
--- NOTE | 2024-03-22 15:15 | W.PM.WC ---
Wound Consult Note Assessment and Plan (1) Cellulitis: Plan Consult: Abdominal cellulitis Patient seen while sitting up in bed. States area to left groin/lower abdomen started about 1 week ago, has progressively worsened. States area has become more red and inflammed and has been draining. She underwent at CT scan today which she and the bedside RN report showed no abscess. Upon assessment, left groin area has been marked with a surgical marker to show areas of redness. Appears that this is already improving since admission. Patient states it is not as painful as it has been to touch. Her left groin is indurated with warmth and redness. An area measuring 0.3cmx0.3cm that is yellow slough covered is located at the center of the reddened area. When lightly pressed, a moderate amount of thick yellow drainage is easily expressed. Reported this to bedside RN. She will contact hospitalist to see if any culture is needed. At this time would recommend warm compresses and dry dressing changes as needed. Photo taken for chart. Orders for treatment in chart. Please call [phone] with any questions or concerns. Kameron Martin, PASHAN, RN, CWON
[2024-03-22] MEDS: PIPERACILLIN SODIUM/TAZOBACTAM 3.375 GM in 0.9 % SODIUM CHLORIDE 50 ML IV ×2 (15:30→21:06)
[2024-03-22] MEDS: INSULIN ASPART 300 UNIT/3 ML PEN SUBQ ×2 (16:14→21:07)
[2024-03-22 21:07] LABS: Glucometer 191 mg/dL (74-106)
[2024-03-22] MEDS: POTASSIUM CHLORIDE 10 MEQ ER TABLET PO (21:07)
[2024-03-23] VITALS (11 sets, daily range): BP systolic 114–134; BP diastolic 76–94; PULSE 76–109; TEMP 36.4–36.9; O2SAT 97–98
[2024-03-23] MEDS: LACTATED RINGER'S SOLUTION 1,000 ML 100 ML IV ×3 (00:19→23:45)
[2024-03-23] MEDS: VANCOMYCIN HCL 1,000 MG in 0.9 % SODIUM CHLORIDE 250 ML 250 MG IV ×2 (00:19→12:13)
[2024-03-23 04:36] LABS: Basophils Percent Auto 0.1 % (0.2-2.0); Eosinophils Absolute Auto 0.1 10^3/uL (0.0-0.7); Eosinophils Percent Auto 0.7 % (0.9-7.0); Hematocrit 31.7 % (36.0-48.0); Immature Granulocytes Pct Auto 1.3 % (0.0-0.5); Lymphocytes Absolute Auto 0.8 10^3/uL (1.2-3.8); Mean Corpuscular HGB Conc 31.5 g/dL (29.9-35.2); Mean Corpuscular Hemoglobin 27.9 pg (26.7-34.0); Mean Corpuscular Volume 88.3 fL (81.0-99.0); Monocytes Absolute Auto 1.4 10^3/uL (0.3-0.8); Monocytes Percent Auto 9.2 % (1.7-12.0); Neutrophils Percent Auto 83.7 % (43.0-75.0); Platelet Count 281 10^3/uL (150-450); Red Blood Count 3.59 10^6/uL (4.20-5.40); Red Cell Distribution Width 15.4 % (11.0-15.0); White Blood Count 15.6 10^3/uL (4.0-11.0)
[2024-03-23 04:45] LABS: Anion Gap 8.4; BUN Creatinine Ratio 36.6; C Reactive Protein 4.38 mg/dL (<=0.50); Carbon Dioxide 30.4 mmol/L (21.0-32.0); Chloride 104 mmol/L (98-107); Estimated GFR (African America >60 (>=60); Estimated GFR (Non-African Ame >60 (>=60); Glucose 246 mg/dL (74-106); Potassium 3.8 mmol/L (3.5-5.1); Sodium 139 mmol/L (136-145)
[2024-03-23] MEDS: PIPERACILLIN SODIUM/TAZOBACTAM 3.375 GM in 0.9 % SODIUM CHLORIDE 50 ML IV ×3 (05:54→22:28)
[2024-03-23] MEDS: TIZANIDINE HCL 4 MG TABLET 8 MG PO ×3 (05:54→22:04)
[2024-03-23] MEDS: CARVEDILOL 12.5 MG TABLET PO ×3 (05:55→22:04)
[2024-03-23] MEDS: BUSPIRONE HCL 15 MG TABLET 7.5 MG PO ×3 (05:55→22:04)
[2024-03-23 07:40] LABS: Glucometer 292 mg/dL (74-106)
[2024-03-23] MEDS: POTASSIUM CHLORIDE 10 MEQ ER TABLET PO ×2 (08:11→22:04)
[2024-03-23] MEDS: SOLIFENACIN SUCCINATE 5 MG TABLET PO (08:11)
[2024-03-23] MEDS: INSULIN ASPART 300 UNIT/3 ML PEN SUBQ ×3 (08:12→22:09)
--- NOTE | 2024-03-23 08:42 | P.PN_ITS ---
Progress Note: Subjective Subjective Interval history: Still with pain and pressure in the left groin Exam Constitutional Vital Signs, click to edit/add: Last Vital Signs Temp 97.6 F 03/23/24 07:50 Pulse 109 H 03/23/24 04:05 Resp 16 03/23/24 04:05 BP 116/77 03/23/24 07:37 Pulse Ox 97 03/23/24 03:36 O2 Del Method Room Air 03/23/24 07:50 Documenting provider has reviewed patient's vital signs: yes Common normals: no apparent distress Lymph Lymphatic: no lymphadenopathy noted Chest Common normals: inspection of chest normal Respiratory Common normals: normal respiratory effort and no retractions Cardio Common normals: regular rate and regular rhythm GI Common normals: negative for Normal to inspection, nondistended, normoactive bowel sounds present (Erythema in groin, area with calor and dolor inside the line) Progress Note: Objective Labs Labs: Short CBC 03/22/24 03/23/24 Range/Units 10:50 03:34 WBC 19.6 H 15.6 H (4.0-11.0) 10^3/uL Hgb 12.9 10.0 L (12.0-16.0) g/dL Hct 39.7 31.7 L (36.0-48.0) % Plt Count 349 281 (150-450) 10^3/uL BMP 03/22/24 03/23/24 10:50 03:34 Sodium 138 139 Potassium 3.8 3.8 Chloride 100 104 Carbon Dioxide 29.3 30.4 BUN 26.0 H 26.0 H Creatinine 0.72 0.71 Glucose 380 H 246 H Calcium 9.7 9.0 Liver Function 03/22/24 Range/Units 13:20 Total Bilirubin 0.7 (0.2-1.0) mg/dL Direct Bilirubin 0.1 (0.0-0.2) mg/dL AST 10 L (15-37) U/L ALT 25 (14-59) U/L Alkaline Phosphatase 122 H (46-116) U/L Albumin 2.6 L (3.4-5.0) g/dL Progress Note: A&P Assessment and Plan (1) Cellulitis: Plan Findings on admission: Sinus tachycardia, leukocytosis, severely elevated sugar due to abdominal wall cellulitis, no abscess formation on CT scan but did start draining later in the day, start patient on IV antibiotics. Blood cultures pending. Continue with aggressive antibiotic management due to the rapid advancement of this initially. So far inside the line of demarcation. White blood cell count is better but not resolved. CRP actually elevated today. Hyperglycemia-patient not diagnosed with diabetes in the past. Patient diabetic, new diagnosis, will start metformin tomorrow due to having recent CT scan with contrast Iron deficiency anemia-monitor daily-Down somewhat today. Check on occult blood sample Dehydration which may be secondary to the diabetes and the abdominal wall cellulitis. IV fluids. Admission status: With the severity of the cellulitis and the rapid progression, concerning for the spreading along the abdominal wall. She would likely need 3 to 4 days of IV antibiotics. Medically necessary treatment will span 2 midnights. Maintain inpatient status. ?
--- NOTE | 2024-03-23 09:25 | CM.NOTE ---
Rounds made with Dr. Burciaga. Plan to continue IV antibiotics today and await culture results. No discharge today.
[2024-03-23 11:06] LABS: Glucometer 173 mg/dL (74-106)
--- NOTE | 2024-03-23 12:33 | SWNOTE1 ---
SW met with pt to discuss dc needs. Pt lives at home with her son and . Pt uses a cane at home. Lives in 2 story home, but does not need to go up and down the steps. Pt spoke about being diagnosed with MS back in 2007 and participating in a study with her doctor back then. Pt voices she does well at home and does not have any concerns/needs for discharge. Important Message from Medicare reviewed and discussed with patient. Pt. verbalized understanding and signed the form. Original given to patient and copy placed in patient?s chart.
[2024-03-23 17:15] LABS: Glucometer 287 mg/dL (74-106)
--- NOTE | 2024-03-23 21:02 | PC.NURSE ---
Patient changes ABD dressing pad to left lower Abdomen PRN when using bathroom. Pad held in place by patients clothing. Drainage is thin in appearance and yellow in color. Patient states drainage depends on movement and pressure applied to her left lower abdomen with sitting, bending etc.
[2024-03-23] MEDS: ATORVASTATIN CALCIUM 20 MG TABLET PO (22:04)
[2024-03-23 22:09] LABS: Glucometer 146 mg/dL (74-106)
[2024-03-23 23:14] LABS: Bilirubin Urine NEGATIVE (NEGATIVE); Blood Urine NEGATIVE (NEGATIVE); Clarity Urine CLEAR (CLEAR); Color Urine LT. YELLOW (YELLOW); Glucose Urine UA 100 mg/dL (NEGATIVE); Ketones Urine NEGATIVE (NEGATIVE); Leukocyte Esterase Urine NEGATIVE (NEGATIVE); Nitrite Urine NEGATIVE (NEGATIVE); Protein Urine NEGATIVE (NEG/TRACE); pH Urine 7.5 (5.0-9.0)
[2024-03-23 23:21] LABS: Bacteria Urine NONE SEEN #/HPF (NONE SEEN); Cast Seen? SEEN #/LPF (NONE SEEN); Crystals Seen? None Seen #/HPF (None Seen); Hyaline Casts Urine FEW; Mucus Urine NONE SEEN (NONE SEEN); RBC Urine NONE SEEN #/HPF (0-2); Squamous Epithelial Cell Urine RARE #/LPF (NONE/RARE); Urine Culture Indicated NO; WBC Urine 0-2 #/HPF (NONE SEEN)
[2024-03-24] MEDS: VANCOMYCIN HCL 1,000 MG in 0.9 % SODIUM CHLORIDE 250 ML 250 MG IV ×2 (01:54→13:44)
[2024-03-24 04:18] VITALS: BP 123/82; PULSE 92; O2SAT 95
[2024-03-24 04:31] LABS: Basophils Percent Auto 0.3 % (0.2-2.0); Eosinophils Absolute Auto 0.1 10^3/uL (0.0-0.7); Eosinophils Percent Auto 1.3 % (0.9-7.0); Hematocrit 30.4 % (36.0-48.0); Hemoglobin 9.5 g/dL (12.0-16.0); Immature Granulocytes Abs Auto 0.17 10^3/uL (0.00-0.03); Immature Granulocytes Pct Auto 1.6 % (0.0-0.5); Lymphocytes Absolute Auto 0.8 10^3/uL (1.2-3.8); Lymphocytes Percent Auto 7.6 % (20.5-60.0); Mean Corpuscular HGB Conc 31.3 g/dL (29.9-35.2); Mean Corpuscular Hemoglobin 27.8 pg (26.7-34.0); Mean Corpuscular Volume 88.9 fL (81.0-99.0); Mean Platelet Volume 9.6 fL (9.5-13.5); Monocytes Absolute Auto 1.1 10^3/uL (0.3-0.8); Neutrophils Absolute Auto 8.6 10^3/uL (1.4-6.5); Neutrophils Percent Auto 79.2 % (43.0-75.0); Platelet Count 259 10^3/uL (150-450); Red Blood Count 3.42 10^6/uL (4.20-5.40); Red Cell Distribution Width 15.4 % (11.0-15.0); White Blood Count 10.8 10^3/uL (4.0-11.0)
[2024-03-24 04:49] LABS: Anion Gap 7.4; BUN Creatinine Ratio 27.9; C Reactive Protein 2.85 mg/dL (<=0.50); Calcium 8.9 mg/dL (8.5-10.1); Carbon Dioxide 28.3 mmol/L (21.0-32.0); Chloride 103 mmol/L (98-107); Estimated GFR (African America >60 (>=60); Estimated GFR (Non-African Ame >60 (>=60); Glucose 218 mg/dL (74-106); Potassium 3.7 mmol/L (3.5-5.1); Sodium 135 mmol/L (136-145)
[2024-03-24] MEDS: BUSPIRONE HCL 15 MG TABLET 7.5 MG PO ×2 (06:22→13:53)
[2024-03-24] MEDS: CARVEDILOL 12.5 MG TABLET PO ×2 (06:22→13:54)
[2024-03-24] MEDS: TIZANIDINE HCL 4 MG TABLET 8 MG PO ×2 (06:22→13:54)
[2024-03-24] MEDS: PIPERACILLIN SODIUM/TAZOBACTAM 3.375 GM in 0.9 % SODIUM CHLORIDE 50 ML IV ×2 (06:22→14:29)
[2024-03-24 07:00] VITALS: BP 123/88; PULSE 92; TEMP 36.6; O2SAT 99
[2024-03-24 07:44] LABS: Glucometer 216 mg/dL (74-106)
[2024-03-24] MEDS: INSULIN ASPART 300 UNIT/3 ML PEN SUBQ ×2 (07:48→12:11)
--- NOTE | 2024-03-24 08:45 | P.DS_ITS ---
DS: Providers Provider Date of admission: 03/22/24 13:53 Primary care physician: Chava Burciaga MD Consults: 03/22/24 13:06 Consult to Pharmacy Routine Consulting Provider: Reason for consultation: Please [place] me when Med Rec is Updated Has provider been notified: No DS: Diagnosis Discharge Diagnosis (1) Cellulitis: Plan Findings on admission: Sinus tachycardia, leukocytosis, severely elevated sugar due to abdominal wall cellulitis, no abscess formation on CT scan but did start draining later in the day, start patient on IV antibiotics. Blood cultures pending. Continue with aggressive antibiotic management due to the rapid advancement of this initially. Improving at the time of discharge Hyperglycemia-patient not diagnosed with diabetes in the past. P improving at the time of discharge Iron deficiency anemia-monitor daily-down on the day of discharge awaiting stool sample for occult blood Dehydration which may be secondary to the diabetes and the abdominal wall c ellulitis. Resolved Admission status: With the severity of the cellulitis and the rapid progression, concerning for the spreading along the abdominal wall. She would likely need 3 to 4 days of IV antibiotics. Medically necessary treatment will span 2 midnights. Maintain inpatient status. DS: Summary Hospital Course Hospital Course: Patient was seen and evaluated in the emergency room with rapid progression of left groin swelling, erythema, drainage. CT scan showed no abscess formation. 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 Patient was placed on Zosyn and vancomycin. She has significant leukocytosis on admission that is improved at the time of discharge. With the current treatment her erythema has not spread outside the line of demarcation. She overall feels improved. We are just awaiting cultures from the drainage. That should come back later this morning and patient will be discharged this afternoon after her afternoon dose of Zosyn. Medication status. She can either see me in the office tomorrow or Thursday. Medications see list. Status at Discharge Overall status at discharge: patient is not back to baseline Time Spent with Patient Time attestation: Total time spent providing and/or coordinating discharge services: Time spent: greater than 30 minutes Exam Constitutional Vital Signs, click to edit/add: Last Vital Signs Temp 97.8 F 03/24/24 07:00 Pulse 92 H 03/24/24 07:00 Resp 16 03/24/24 07:00 BP 123/88 03/24/24 07:00 Pulse Ox 99 03/24/24 07:00 O2 Del Method Room Air 03/24/24 07:00 Documenting provider has reviewed patient's vital signs: yes Common normals: no apparent distress Lymph Lymphatic: no lymphadenopathy noted Chest Common normals: inspection of chest normal Respiratory Common normals: normal respiratory effort and no retractions Cardio Common normals: regular rate and regular rhythm GI Common normals: negative for Normal to inspection, nondistended, normoactive bowel sounds present (Erythema in groin, area with calor, dolor inside the line - appears improve) DS: Data Data Completed and Pending Labs on day of discharge: Labs from last 24 hours 03/24/24 03/24/24 03/23/24 07:43 04:11 23:05 WBC 10.8 RBC 3.42 L Hgb 9.5 L Hct 30.4 L MCV 88.9 MCH 27.8 MCHC 31.3 RDW 15.4 H Plt Count 259 MPV 9.6 Neut % (Auto) 79.2 H Lymph % (Auto) 7.6 L [place] % (Auto) 10.0 Eos % (Auto) 1.3 Baso % (Auto) 0.3 Neut # (Auto) 8.6 H Lymph # (Auto) 0.8 L [place] # (Auto) 1.1 H Eos # (Auto) 0.1 Baso # (Auto) 0.0 Abs Immat Gran (auto) 0.17 H Imm/Tot Granulo (auto) 1.6 H Sodium 135 L Potassium 3.7 Chloride 103 Carbon Dioxide 28.3 Anion Gap 7.4 BUN 17.0 Creatinine 0.61 Est GFR ( Amer) >60 Est GFR (Non-Af Amer) >60 BUN/Creatinine Ratio 27.9 Glucose 218 H Calcium 8.9 C-Reactive Protein 2.85 H Urine Color Lt. yellow Urine Clarity Clear Urine pH 7.5 Ur Specific [place] 1.020 Urine Protein Negative Urine Glucose (UA) 100 A Urine Ketones Negative Urine Occult Blood Negative Urine Nitrite Negative Urine Bilirubin Negative Urine Urobilinogen 1.0 Ur Leukocyte Esterase Negative Urine RBC None seen Urine WBC 0-2 A Ur Squamous Epith Cells Rare Urine Crystals None seen Urine Bacteria None seen Urine Casts Seen A Hyaline Casts Few Urine Mucus None seen Ur Culture Indicated? No POC Glucose 216 H 03/23/24 03/23/24 03/23/24 22:08 17:11 11:05 WBC RBC Hgb Hct MCV MCH MCHC RDW Plt Count MPV Neut % (Auto) Lymph % (Auto) [place] % (Auto) Eos % (Auto) Baso % (Auto) Neut # (Auto) Lymph # (Auto) [place] # (Auto) Eos # (Auto) Baso # (Auto) Abs Immat Gran (auto) Imm/Tot Granulo (auto) Sodium Potassium Chloride Carbon Dioxide Anion Gap BUN Creatinine Est GFR ( Amer) Est GFR (Non-Af Amer) BUN/Creatinine Ratio Glucose Calcium C-Reactive Protein Urine Color Urine Clarity Urine pH Ur Specific [place] Urine Protein Urine Glucose (UA) Urine Ketones Urine Occult Blood Urine Nitrite Urine Bilirubin Urine Urobilinogen Ur Leukocyte Esterase Urine RBC Urine WBC Ur Squamous Epith Cells Urine Crystals Urine Bacteria Urine Casts Hyaline Casts Urine Mucus Ur Culture Indicated? POC Glucose 146 H 287 H 173 H Preliminary micro results at discharge 03/22/24 15:20 Wound Culture - Preliminary Groin Discharge Plan Discharge Disposition: Home, Self-Care Condition: Fair Discharge Medications: Continued buspirone 7.5 mg tablet 7.5 mg PO TID carvedilol 12.5 mg tablet 12.5 mg PO TID clonidine 0.3 mg/24 hr patch weekly 1 patch topical QWEEK Patient Comments: Put on Th fesoterodine 4 mg tablet extended release 24 hr 4 mg PO DAILY potassium chloride 10 mEq tablet extended release 10 meq PO BID rosuvastatin 5 mg tablet 5 mg PO QPM tizanidine 4 mg tablet 8 mg PO TID Print Language: Samoan Forms: Portal Instructions
--- NOTE | 2024-03-24 09:11 | CM.NOTE ---
Rounds made with Dr. Burciaga, discussed discharge to home later this afternoon after culture results come back for home antibiotics.
[2024-03-24] MEDS: SOLIFENACIN SUCCINATE 5 MG TABLET PO (09:28)
[2024-03-24] MEDS: POTASSIUM CHLORIDE 10 MEQ ER TABLET PO (09:28)
[2024-03-24] MEDS: HYOSCYAMINE SULFATE 0.125 MG TAB.SUBL SL (10:11)
[2024-03-24 11:25] VITALS: O2SAT 97
[2024-03-24 11:59] LABS: Glucometer 251 mg/dL (74-106)
[2024-03-24 12:04] VITALS: BP 161/100; PULSE 88; TEMP 36.6; O2SAT 99
[2024-03-24 13:08] LABS: Vancomycin Trough 17.2 ug/mL (5.0-20.0)
[2024-03-24 14:51] VITALS: BP 149/94
--- NOTE | 2024-03-25 12:43 | CM.DCFOLLOWU ---
Person spoke with: Jami How are you feeling? Better How is your pain? Improved Did you understand your discharge instructions? Yes Do you have any questions about your discharge instructions? No Were you given any prescriptions at discharge? Yes Were you able to get your prescriptions filled? Yes Do you understand how to take your medications as ordered? Yes Do you have any questions about your follow up appointment and do you plan to keep your follow up appointment? No I plan on going it is scheduled Is there anything else that you would like to discuss? No Questions/Comments/Concerns/Other:
== END 2024-03-24 14:35 | disposition home or self-care (01) | DRG 603 ==
LOC: ER 12:43 → ICU 13:58
PROVIDERS: Admitting Provider Family Medicine; Emergency Provider Emergency Medicine; PCP Family Medicine; Visit Provider Family Medicine
DX: L03.311 Cellulitis of abdominal wall (principal); R00.0 Tachycardia, unspecified; E86.0 Dehydration; G35 Multiple sclerosis; I10 Essential (primary) hypertension; E11.65 Type 2 diabetes mellitus with hyperglycemia; D50.9 Iron deficiency anemia, unspecified; D72.829 Elevated white blood cell count, unspecified; Z79.899 Other long term (current) drug therapy; Z90.710 Acquired absence of both cervix and uterus; B95.62 Methicillin resistant Staphylococcus aureus infection as the cause of diseases classified elsewhere
CPT/HCPCS: 36415; 74177; 80048; 80076; 80202; 81001; 82948; 83605; 85025; 86140; 87040; 87070; 87150; 87186; 94667; 94761; 96361; 96365; 96366; 96367; 96368; 99285; G0328; J3370; Q9967

== ENCOUNTER 2024-04-18 08:44 | Outpatient (OUT) | payer MEDICARE, MEDICAID, SELFPAY ==
--- OUTSIDE RECORDS SUMMARY | 2024-04-18 08:49 | XMS_ITS | CCD ---
Author Organization [facility] Care Team Providers Care Clinic Director Name Role Phone ELTAHAWY, EHAB A Unavailable [...] source) Penicillins Drug allergy (disorder) 06-02-2015 [facility] Repository (2 sources) Sulfonamides (Antibiotic) Drug allergy (disorder) 09-14-2013 [facility] Repository (1 source) hydrALAZINE Drug Allergy 04-15-2021 [facility] Repository (1 source) Penicillin Drug Allergy 09-14-2013 [facility] Repository Problems Active Problems Problem Classification Problem [...] Facility PT - Assessmentson PT - Assessments [id number]#1 .00CD:127 Normal [facility] Coding Summary.on 11-18-2022 Coding Summary. CD:[id number] G h0bWw+PGhlYWQ+ZC3FEEV yF26xhARrmW8FC2yMJX0X DVTQNBPABZ6OPP7gtDV7Y PrmG1XiwpCp DfcmiJVuQL06SHo3YZP6c KpsHVfywI4jjNJtQ1n0Iw LwPG64qZ21VPipMWXlYsT 3LjZpbjsgbWFy J8btDmSlrHMgFrb+PHRhY mxlIHdpZHRoPScxMDAlJy NgwYqeNS5eLp1mRTLdDBH vbGxhcHNlOiBj u1igPNIqJFklNS0diCuaK 2PwzYL0NHRyt4x8Gb79pE I+HGXmVPL6uWycKVcbm88 0DlUxk2hfIMF1 iDNzTFulTOE1P69lw1R3P OAvWIRyHKS6mSY0oZ0xxY jwkbmlR9PjpPGjGvB8DPZ 6eCEtfH7isQyd tzxxfB0eFtp+E59ITY8AZ NQZAO1PKqp6A1BxZtljsV I+CT86TDYrRM14dMVtqQD bb8qdkNx2UvTo RXAmIKE1tZkeZVvaa8KoZ BIsB02kxDTgw1T9UMDldF dieEXtStAjcPS3zF2vVVq dblpcv7nmwtyk Gloqf7husk99dH11D38dB XpzLVYmJVA3OZZyUMMbfG wema8zoG9iRl7+NOjgg3s ml9rodJf9DmZt QTUnhmHhhUvoTCJ2t2LpH r93Z9NqcUuqj5YoYgp4mk 56aCHbp2N9dOE0LXybCZI prD2oRFtbGuD5 SONjNtXzbG60jNAaUNchB e4iqXadeEwdPL0kASSyuy xxAIQbyU6yQPUuzASgtGw aYQ2uQSVsuypx b539CsRfPEQ8RNYrdVQjS 0MhuA1rAyVcKGPuZNTcL2 VkqMHhSTlaC847KUgeYdL 0ZKDrfuSwP1Gz ZLMdmTadYjJ3m6T3Fo7Wd 5RbmzuzWGZ7RNypPYHuMn F1TvYiBmK1G9FrWtl3NWV fhLmdHX0vV3Sg JPDbnnxrnlcpwWJ9DMHrN RCoxM01lYRwNJdyXa4ru6 Z5x715JZFaRALndR81Ti3 udDogMTBwdCBU zT7hrbsib3obfhyzOoRgH CLeFEe2VDk8VLFgdMkwRi WiYMH0ZtW3OFU1fNRyqK6 ehSpojethaL9a Oyc+L75baU8rBKL0UCX6h yonGTYeisTaCG48NR39O8 RyPjwvdGFibGU+PGRpdiB uzRdwOJ8qDyIw p5tyw1YwETfsE3YjXXUgB DfwCps0YQWmSUT6bDY5yP 9oQLUjASrnd9T9cNO6V1M xufSezy3iz9ae WIWmSPwwM18jdFYjf3V8F NNjwJK4QXCnlKdkEhKocA 93Oyc+SFYfmZzwc1TgSyy mu6ysk1umgPb0 BzQwHICcigAayTgnTJE4v 2GtLa27T44mUDepUPEbMF IyZWFdNEIlzUnxrx2acA9 wIi8+PGNvbCB3 iGK1yH3hZKIoBjE8TUbyI 277UgShqCOqXfskj6rlz4 umwBd5TvGpQMVpudYaxFz vOJF5v6KaSt15 H07qKAijAVEgXMYlZXPcW GFnpTfxkp0yuF3pEk3+PC 1id2avgf80iF86pCN+PHR yFAT5wEbtBSdb UKZnrS6pSBtaAlA3ADTbR yNphG27tUXmCFxhMi4frK okwTsvXR7eUEZhdgcnf14 4BuVtt6hlVQZb uHLlTVgnWCW5H91pr3P2J GVoNPJoUBY3xUQ1jG7rwZ lnbjogbGVmdDsgdmVydGl lDGikVCfhE674 IHRvcDsnPlBhdGllbnQgT rNuESd4X9DjMkp5TPIdmU owIE3maTBsYMewGh9axLu haIoxRN8jEMNl hypom426ZxMwc0tnKXUws WZoZGeiHXQ6Q58kj7K6YJ IlWJBtNQI8sSN3eI0psGx nbjogbGVmdDsg uuHhgMqkQSbzXPrzU090U HRvcDsnPkJpcnRoIERhdG I3AG42MU86dPAqm8Q1uOE 5H7OdAUCxeicf virjaUC7NFCiSHOaaG35E a2pnZqpIa3zBZWiKBJ1TZ EglPJiA8RmqB4wGkGaXWY zMAJjM8DbcYJa UAeyP132BPdyGxB2NAPms pEuI0AtFJMfpEamNsN3i2 Q9Fp0YY3C4EU43VB78lYN wx7N5oEP5P0Hv IMCapfsqigtqgAL9YPMwI UAseP38Oa8qjCguOb8lIY UhCMC8YAPleNWyC5CsqG9 yOiAjMDAwMDAw G8HlcVDoKSxlL495VQglH qG4UMLdjzHjF2FbQFEzuD seHwC5b9E2Df4ESPb5UU2 0NS64cJJrw2E0 lPQ8O6FsQXPdwpexmudxh AF7UUAaFNZwhC32Hq6ikH xbLo8eOBHuCHE0RUAywGF yD7GjlO4oBzAb ESFnQFVjP4DkmCSfRKjvG 328CXbfAkI1VJGmjgPzU0 WnIBAsfNcgKaN3l6K5Fr9 PELNhOH14RKS5 eRR6IF38TE65X6AvRkofq GFibGU+PHRhYmxlIHdpZH RoPScxMDAlJyBzdHlsZT0 eVr2pQVZgXLAm lUceuVXbWfSlt0mtMFQrD YiqFA9wlZqlE4ZkrPO4DS Pmm4k7En85B84eF9IboUG +WCDyvXZ7gRH1 iY1bFqNzVtW1SOosD365M cLbwSCjNhknw8alx1jqiH b0NaV6FONifzUbcRdcDCT 0m0MgYq86D14j IHdpZHRoPSIxNSUiIHZhb Xmlft1voA5hCg9+PGNvbC Y3uXW9xM8hCtLpSqV7NOg iV939NvRwkYVl Fjyru9nzn0tljOt3VcToH CXmbnLdbGuiQZR9x3SlEl 14M1UdrDlst1AxGuo8zg8 4tBWgm2V8uXU9 A5TvKHGfvftxzJMulAjwW G7dLRPzhyqjUPTpfV0iJP GdK1b3DiZnGqQ8QWzlO9Z jnuL0ISVsrLJu LRxyLWX0W18mr3V9IIYfZ FXxNRR9sKI5jV4hlRqvpm ogbGVmdDsgdmVydGljYWw dOFucN595WDLj kDhnDYIrjC1pBSLslWVpt RatFR4wHWZtjhiwLdLSCU cXRCWUG8YBRpNPXG12AG1 1hVIgk4J9sFE5 U6GqLFLtkudlaniboRV3L VFtZAOtzB95qFVvGOrqYr 3zn3R0e953GSHtZIKdoR1 6By8zbLgqJJZo gCTEcP0azefpq3adgpcnE nRiMYAmVCe6AGa0VYZdpJ mwRrMzSDY2QpO1LCF3lKA euJ2nvBzwzwcv cJ0qVmz+QVCpWPkeBAj3D TwvdGQ+EAWqSIL7uUbuWB mhNYLvwK4yPUFsH9x0VtA lNmJ7VEvpX8Jp FWAargipUc74aG1yGwCrM vO0QOclO7XsmnU5EAJulY GlPIelOEV7F37en0L6MLD kWKXfIXZ7wKH4 nI9dhZfybabeoHUlzGzwz hLxuGhgCXmyDAmnT035KW RvcDsnPjUxIFllYXJzPC9 2TH72lBOqw7W6 tDN6M9TxDDVouhmxyspfw FH2URDnLYMrtF69xFWxLF peHy3kw2A6e383LKBnMQY ibU85Yz2qpPsn HURiyUMXtC8dznvqw9xoo crdDrMxWUMwHBx2ALt3RT KnvHkzXhGpWYI6ScE7JGH 6cLZzgH0cxQkj uionjP6fZlt+RmVtYWxlP C40SZ49vWTqd6A2gCV4E2 ZnJMHxmybcqaixeTH6DDE mZCCwsX26dEAp HMlxNu9zi2M3p959YUKhK MQsaE38Ub2yeXtrXCKqqE DJmQ3cudzzo2kgfnfbPyL qFFUaTUc6RKz6 JTNxtZqfQoHnUPY3IyW0H MW0rFMngF9npRrcjxfckW 9wOyc+RlLyvUTzrG5gIH6 4LD16I9RmFeyf dGFibGU+PHRhYmxlIHdpZ HRoPScxMDAlJyBzdHlsZT 2hTz7rGPUfVKPzfSpktPJ kLyCio1wbVUIt UYxpLM0blWjnO7YuoXJ6M WBsa1q1Dt71O56qA4OfwY A+FPDdvNU1sMM2rX1xWiU wXsU7XHokN147 AeZbiLBbOtupc8nsv3tfg Az6XzAhPRAphdScgGouJS Z3u8YnTd54U53pEOvwIGW oPSIyMCUiIHZh tMvemj6jkO5eTu7+PGNvb XI7eND7uA6jJiUrZwD3EB biY627BcYivKRcWfqzN88 sB6UryVU+PHRy Gmm6MHSveWcfBW8bgGRhJ BucMd9nHVQ7GcSvUpYmNY glZ8GeBRClfvdhoscfnLF 0AGDwNAGmrH75 Hl5mvWfiTt7rKKYwLRQ9J VCbxRDdE6BjuW4rVrWpCU WtOGNcB8OdjKDyVUldS31 5MFdnClI7IHNi qbIiF0GmWKJejLflXlE5b 1J5Mg2ItQlpgDFvHO3mSq GsHBr0S8DmFts8UCHseVm aZC1yqWOnTEjm Be7rrKgcsAlrMA2eDZMrn rigc678NzImm3tvJEYfgU QzYIfnIJK4W94wb8I3YWL oIKRsKLE5sDO0 rS1owYltneopbAYxkXyjv lZkjJuuZJxzWEwlS732LH ScaYycFmJXGdi4G0QwCei 8CVMukBzdGP1n wAGbGYxwOr3suZcioVygB Z4kFAXfsgsaz461HvNvo8 fzYEJphRDkEVbvXIR7C60 jw0Y1QHWkJNMi MUN8cAB2mR6dkTfoxtjad GVmdDsgdmVydGljYWwtYW wlG245ZGQnwBzoHa4MFua 9U3BcEhm1XMXm qNypVW2ojPUiSCgfSw4nr NhjyTjgXY3iNKLmogtti0 66VqXoc7zrVDApfWXyRMh bKXP1Q46af7O1 QNLdRYUaACA6gPZ7wN7as GlnbjogbGVmdDsgdmVydG rpNTvnPHzyX637FGQgpYj nPlBheWVyOjwv dGQ+AC03ck41P0QiPxhkF hv2ESIlOQE1zZI8eR0fQM MbDPazu3P7jMZ9F0BcuxB ziu9vm0wkWCBd ZTog (more content not included)... Normal [facility] Insurance Correspondenceon 0 11-18-2022 Insurance Correspondence [id number]# 1.00CD:127 [facility] Consent for Treatmenton 11-02 Consent for Treatment [id number]#1 .00CD:127 [facility] PT - Orderson 11-17-2022 PT - Orders [id number]#1 .00CD:127 [facility] CBC AUTO DIFFon 11-04-2022 BASO # 0.0 103/ul Normal 0.0-0.1 [facility] Comment on above: Performed By: #### C BC ####[facility] [address] [place] [id number]. Linnea Jane Basophils/100 WBC (Bld) 0.3 % Normal 0.2-2.0 [facility] Comment on above: Performed By: #### C BC ####[facility] [address] [place] [id number]. Linnea Jane EO # 0.2 103/ul Normal 0.0-0.7 [facility] Comment on above: Performed By: #### C BC ####[facility] [address] [place] [address]Dr. Linnea Jane Eosinophils/100 WBC (Bld) 3.3 % Normal 0.9-7.0 [facility] Comment on above: Performed By: #### C BC ####[facility] [address] [place], [place] [address]Dr. Linnea Jane Erythrocyte distribution width (RBC) [Ratio] 13.7 % Normal 11.0-15.0 [facility] Comment on above: Performed By: #### C BC ####[facility] [address] [place], [place] [id number]. Linnea Jane Hematocrit (Bld) [Volume fraction] 37.1 % Normal 36.0-48.0 [facility] Comment on above: Performed By: #### C BC ####[facility] [address] [place], [place] [address]Dr. Linnea Jane Hemoglobin (Bld) [Mass/Vol] 12.2 g/dL Normal 12.0-16.0 [facility] Comment on above: Performed By: #### C BC ####[facility] [address] [place] [id number]. Linnea Jane IG # 0.06 10e3/ul Critically high 0.00-0.03 [facility] Comment on above: Performed By: #### C BC ####[facility] [address] [place] [address]Dr. Linnea Jane IG % 1.0 % Critically high 0.0-0.5 [facility] Comment on above: Performed By: #### C BC ####[facility] [address] [place] [address]Dr. Linnea Jane LYMPH # 0.4 103/ul Critically low 1.2-3.8 [facility] Comment on above: Performed By: #### C BC ####[facility] [address] [place] [address]Dr. Linnea Jane Lymphocytes/100 WBC (Bld) 6.8 % Critically low 20.5-60.0 [facility] Comment on above: Performed By: #### C BC ####[facility] [address] [place] [id number]. Linnea Jane MANUAL DIFF REQ NO Normal [facility] Comment on above: Performed By: #### C BC ####[facility] [address] [place] [address]Dr. Linnea Jane MCH (RBC) [Entitic mass] 28.4 pg Normal 26.7-34.0 [facility] Comment on above: Performed By: #### C BC ####[facility] [address] [place] [id number]. Linnea Jane MCHC (RBC) [Mass/Vol] 32.9 g/dL Normal 29.9-35.2 [facility] Comment on above: Performed By: #### C BC ####[facility] [address] [place] [address]Dr. Linnea Jane MCV (RBC) [Entitic vol] 86.5 fL Normal 81.0-99.0 [facility] Comment on above: Performed By: #### C BC ####[facility] [address] [place] [address]Dr. Linnea Jane MONO # 0.7 103/ul Normal 0.3-0.8 [facility] Comment on above: Performed By: #### C BC ####[facility] [address] [place] [address]Dr. Linnea Jane Monocytes/100 WBC (Bld) 11.3 % Normal 1.7-12.0 [facility] Comment on above: Performed By: #### C BC ####[facility] [address] [place] [address]DrDaniel Contrerasbelem Jane NEUT # 4.5 103/ul Normal 1.4-6.5 [facility] Comment on above: Performed By: #### C BC ####[facility] [address] [place] [address]DrDaniel Jane Neutrophils/100 WBC (Bld) 77.3 % Critically high 43.0-75.0 [facility] Comment on above: Performed By: #### C BC ####[facility] [address] [place] [id number] Jane Platelet mean volume (Bld) [Entitic vol] 9.0 fL Critically low 9.5-13.5 [facility] Comment on above: Performed By: #### C BC ####[facility] [address] [place] [address]Dr. Linnea Jane PLT 429 103/ul Normal 150-450 [facility] Comment on above: Performed By: #### C BC ####[facility] [address] [place] [address]DrDaniel Jane RBC 4.29 106/ul Normal 4.20-5.40 [facility] Comment on above: Performed By: #### C BC ####[facility] [address] [place] [id number] Jane WBC 5.8 103/ul Normal 4.0-11.0 [facility] Comment on above: Performed By: #### C BC ####[facility] [address] [place], [place] [address]YzDr. Linnea Jane FREE T3on 11-04-2022 FREE T3 2.58 pg/mlL Normal 2.18-3.98 [facility] Comment on above: Performed By: #### C MP, FT3, LIPID, T4, TSH #### [facility] [address] [place], [place] [address] Dr. Linnea Jane GLYCOHEMOGLOBIN A1Con 2022 ADA RECOMMENDATION SEE BELOW Normal [facility] Comment on above: Result Comment: ADA RECOMMENDED LIMIT 4.0 - 6.0 ADA THERAPEUTIC TARGET < 7.0 ACTION SUGGESTED > 7.0 Performed By: #### A 1C #### [facility] [address] [place] [address] Dr. Linnea Jane Glucose [Mass/Vol] 151 mg/dL Normal [facility] Comment on above: Performed By: #### A 1C #### [facility] [address] [place] [address] Dr. Linnea Jane HbA1c (Bld) [Mass fraction] 6.9 % Critically high 4.5-6.2 [facility] Comment on above: Performed By: #### A 1C #### [facility] [address] [place] [address] Dr. Linnea Jane LIPID PROFILEon 11-04-2022 CHOL-HDL RATIO NORM SEE BELOW Normal [facility] Comment on above: Result Comment: 3.3 - 4.4 LOW RISK 4.4 - 7.1 AVERAGE RISK 7.1 - 11.0 MODERATE RISK >11.0 HIGH RISK Performed By: #### C MP, FT3, LIPID, T4, TSH #### [facility] [address] [place] [address] Dr. Linnea Jane Cholesterol [Mass/Vol] 174 mg/dL Normal <=200 [facility] Comment on above: Performed By: #### C MP, FT3, LIPID, T4, TSH #### [facility] [address] [place] [address] Dr. Linnea Jane Cholesterol in HDL [Mass/Vol] 74 mg/dL Critically high 40-60 [facility] Comment on above: Performed By: #### C MP, FT3, LIPID, T4, TSH #### [facility] [address] [place] [address] Dr. Linnea Jane Cholesterol in LDL [Mass/Vol] 82.2 mg/dL Normal [facility] Comment on above: Performed By: #### C MP, FT3, LIPID, T4, TSH #### [facility] [address] [place] [address] Dr. Linnea Jane Cholesterol.total/Cho lesterol in HDL [Mass ratio] 2.4 {ratio} Normal [facility] Comment on above: Performed By: #### C MP, FT3, LIPID, T4, TSH #### [facility] [address] [place] [address] [address] Linnea Jane HDL NORMAL > or = 60 mg/dl - LO W CARDIOVASCULAR RISK <40 mg/dl - HIGH CARDIOVASCULAR RISK Normal [facility] Comment on above: Performed By: #### C MP, FT3, LIPID, T4, TSH #### [facility] [address] [place] [address] [address] Linnea Jane LDL CALC NORMAL SEE BELOW Normal [facility] Comment on above: Result Comment: <100 mg/dl OPTIMAL 100 - 129 mg/dl NEAR OR ABOVE OPTIMAL 130 - 159 mg/dl BORDERLINE HIGH 160 - 189 mg/dl HIGH >190 mg/dl VERY HIGH Performed By: #### C MP, FT3, LIPID, T4, TSH #### [facility] [address] [place] [address] [address] Linnea Jaen Triglyceride [Mass/Vol] 89 mg/dL Normal <=150 [facility] Comment on above: Performed By: #### C MP, FT3, LIPID, T4, TSH #### [facility] [address] [place] [address] [address] Linnea Jane VLDL CALC 17.8 mg/dL Normal [facility] Comment on above: Performed By: #### C MP, FT3, LIPID, T4, TSH #### [facility] [address] [place] [address] [address] Linnea Jane PROF 14(COMP METB)on 023 Albumin [Mass/Vol] 3.2 g/dL Critically low 3.4-5.0 [facility] Comment on above: Performed By: #### C MP, FT3, LIPID, T4, TSH #### [facility] [address] [place] [address] Dr. Linnea Jane Albumin/Globulin [Mass ratio] 1.0 {ratio} Normal [facility] Comment on above: Performed By: #### C MP, FT3, LIPID, T4, TSH #### [facility] [address] [place] [address] Dr. Linnea Jane ALP [Catalytic activity/Vol] 77 U/L Normal 46-116 [facility] Comment on above: Performed By: #### C MP, FT3, LIPID, T4, TSH #### [facility] [address] [place] [address] Dr. Linnea Jane ALT [Catalytic activity/Vol] 36 U/L Normal 14-59 [facility] Comment on above: Performed By: #### C MP, FT3, LIPID, T4, TSH #### [facility] [address] [place] [address] Dr. Linnea Jane Anion gap [Moles/Vol] 9.7 mmol/L Normal [facility] Comment on above: Performed By: #### C MP, FT3, LIPID, T4, TSH #### [facility] [address] [place] [address] Dr. Linnea Jane AST [Catalytic activity/Vol] 20 U/L Normal 15-37 [facility] Comment on above: Performed By: #### C MP, FT3, LIPID, T4, TSH #### [facility] [address] [place] [address] Dr. Linnea Jane Bilirubin [Mass/Vol] 0.5 mg/dL Normal 0.2-1.0 [facility] Comment on above: Performed By: #### C MP, FT3, LIPID, T4, TSH #### [facility] [address] [place] [address] Dr. Linnea Jane Calcium [Mass/Vol] 9.3 mg/dL Normal 8.5-10.1 [facility] Comment on above: Performed By: #### C MP, FT3, LIPID, T4, TSH #### [facility] [address] [place] [address] Dr. Linnea Jane Chloride [Moles/Vol] 104 mmol/L Normal 98-107 [facility] Comment on above: Performed By: #### C MP, FT3, LIPID, T4, TSH #### [facility] [address] [place], [place] [address] Dr. Linnea Jane CO2 [Moles/Vol] 31.7 mmol/L Normal 21.0-32.0 [facility] Comment on above: Performed By: #### C MP, FT3, LIPID, T4, TSH #### [facility] [address] [place] [address] Dr. Linnea Jane Creatinine [Mass/Vol] 0.63 mg/dL Normal 0.55-1.02 [facility] Comment on above: Performed By: #### C MP, FT3, LIPID, T4, TSH #### [facility] [address] [place] [address] Dr. Linnea Jane EGFR-AF SWAZI >60 Normal >=60 [facility] Comment on above: Performed By: #### C MP, FT3, LIPID, T4, TSH #### [facility] [address] [place] [address] Dr. Linnea Jane EGFR-NON AF SWAZI >60 Normal >=60 [facility] Comment on above: Performed By: #### C MP, FT3, LIPID, T4, TSH #### [facility] [address] [place] [address] Dr. Linnea Jane Globulin (S) [Mass/Vol] 3.1 g/dL Normal [facility] Comment on above: Performed By: #### C MP, FT3, LIPID, T4, TSH #### [facility] [address] [place] [address] Dr. Linnea Jane Glucose [Mass/Vol] 131 mg/dL Critically high 74-106 [facility] Comment on above: Performed By: #### C MP, FT3, LIPID, T4, TSH #### [facility] [address] [place] [address] Dr. Linnea Jane Potassium [Moles/Vol] 3.4 mmol/L Critically low 3.5-5.1 [facility] Comment on above: Performed By: #### C MP, FT3, LIPID, T4, TSH #### [facility] [address] [place] [address] Dr. Linnea Jane Protein [Mass/Vol] 6.3 g/dL Critically low 6.4-8.2 [facility] Comment on above: Performed By: #### C MP, FT3, LIPID, T4, TSH #### [facility] [address] [place] [address] Dr. Linnea Jane Sodium [Moles/Vol] 142 mmol/L Normal 136-145 [facility] Comment on above: Performed By: #### C MP, FT3, LIPID, T4, TSH #### [facility] [address] [place] [address] Dr. Linnea Jane Urea nitrogen [Mass/Vol] 22.0 mg/dL Critically high 7.0-18.0 [facility] Comment on above: Performed By: #### C MP, FT3, LIPID, T4, TSH #### [facility] [address] [place] [address] Dr. Linnea Jane Urea nitrogen/Creatinine [Mass ratio] 34.9 mg/mg Normal [facility] Comment on above: Performed By: #### C MP, FT3, LIPID, T4, TSH #### [facility] [address] [place] [address] Dr. Linnea Jane T4on 11-04-2022 T4 [Mass/Vol] 8.50 ug/dL Normal 4.80-13.90 [facility] Comment on above: Performed By: #### C MP, FT3, LIPID, T4, TSH #### [facility] [address] [place] [address] Dr. Linnea Jane TSHon 11-04-2022 TSH 0.590 uIU/mL Normal 0.358-3.740 [facility] Comment on above: Performed By: #### C MP, FT3, LIPID, T4, TSH #### [facility] [address] [place] [address] Dr. Linnea Jane VITAMIN D 25 OHon 11-04-2022 VIT D 25-OH 140.4 ng/mL Normal [facility] Comment on above: Performed By: #### V ITAD #### [facility] [address] [place] [address] Dr. Linnea Jane VIT D RANGES SEE BELOW Normal [facility] Comment on above: Result Comment: <20 ng/mL Vit D deficient 20 - <30 ng/mL Vit D insufficient 30 - 100 ng/mL Vit D sufficient >100 ng/mL Potential Toxicity Performed By: #### V ITAD #### [facility] [address] [place] [address] [id number] [address] Linnea Jane HEPATITIS B CORE, IgMon 12-0 Hep B Core Ab, IgM Negative Normal Negative [facility] Comment on above: Performed By: #### H EPBCOR #### [facility] [address], [place] [address] Dr. Linnea Jane MRI BRAIN WO W [...] by: NEGRO BLACKMON Date: 2022-09-17 07:22 Normal [facility] XR FOREIGN BODY EYEon 2021 XR FOREIGN BODY EYE EXAMINATION: XR FOREIGN BODY EYE HISTORY: Foreign body in eye ; pre-MRI COMPARISON: No relevant comparison available. FINDINGS: ORBITS: Negative for a metallic foreign body. OTHER: Negative. IMPRESSION: 1. No metallic foreign body within the orbits. Electronically authenticated by: NEGRO BLACKMON Date: 2022-09-16 15:08 Normal [facility] Encounters Encounter Date Encounter Type Care Provider Facility Start: 02-17-2024 End: 02-17-2024 ambulatory MARSHAL PADILLA Not Available Start: 11-16-2023 End: 11-16-2023 ambulatory MARSHAL PADILLA Not Available Start: 11-17-2022 Encounter for genera l adult medical examination without abnormal findings DR KRISHAN SANABRIA [facility] Start: 11-17-2022 End: 02-16-2023 ambulatory Marshal Padilla [place] [place]: 11-04-2022 End: 11-05-[address] KRISHAN SANABRIA Facility:[facility] Start: 11-04-2022 End: 11-05-2022 Encounter for general adult medical examination without abnormal findings DR KRISHAN SANABRIA Facility:[facility] Start: 10-09-2022 End: 10-10-[address] DOCTOR WINKLER Facility:[facility] Start: 09-16-2022 End: 09-17-[address] DOCTOR WINKLER Facility:[facility] Start: 12-31-[address] KRISHAN SANABRIA Facility :[facility] Start: 06-26-2016 End: 06-27-2016 Ambulatory LELE BAZAN Facility:[facility] Payers Date Payer Category Payer Unknown [id number] 2.16.84 [id number] 1971 Unknown [id number] 2.16.84 [id number] 1971 Unknown [id number] 2.16.84 [id number] 1971 Unknown [id number] 2.16.84 [id number] 1971 Unknown [id number] 2.16.8 [id number] 1971 Unknown [id number] 2.16.84 [id number] 1971 Unknown [id number] 2.16.84 [id number] 1959 Medicaid [id number] 1958 Medicare [id number] 1958 Self-pay Medicare [id number] Summary Purpose Family History No Family History Records FoundNo Family History Records FoundNo Family History Records FoundNo Family History Records Found Advance Directives No Advanced Directives Records FoundNo Advanced Directives Records FoundNo Advanced Directives Records FoundNo Advanced Directives Records Found Additional Source Comments INFORMATION SOURCE (unrecogn ized section and content) DATE CREATED AUTHOR 04/28/[address] [facility] DATE CREATED AUTHOR AUTHOR'S ORGANIZ ATION 11/18/2022 [facility] DATE CREATED AUTHOR AUTHOR'S ORGANIZ ATION 02/16/2023 [facility] DATE CREATED AUTHOR AUTHOR'S ORGANIZ ATION 02/18/2024 [facility] FOR RECORDS PERTAINING TO PATIENTS WHO ARE [...] BE BASED ON THE PRIMARY CLINICAL RECORDS. [facility] [employer] [facility]. provides no warranty or guarantee of the accuracy or completeness of information in this document.
[2024-04-18 09:25] LABS: Basophils Percent Auto 0.5 % (0.2-2.0); Eosinophils Absolute Auto 0.1 10^3/uL (0.0-0.7); Eosinophils Percent Auto 2.1 % (0.9-7.0); Hematocrit 33.4 % (36.0-48.0); Immature Granulocytes Abs Auto 0.01 10^3/uL (0.00-0.03); Immature Granulocytes Pct Auto 0.2 % (0.0-0.5); Lymphocytes Percent Auto 16.2 % (20.5-60.0); Mean Corpuscular HGB Conc 32.9 g/dL (29.9-35.2); Mean Corpuscular Hemoglobin 28.6 pg (26.7-34.0); Mean Corpuscular Volume 86.8 fL (81.0-99.0); Mean Platelet Volume 8.8 fL (9.5-13.5); Monocytes Absolute Auto 0.7 10^3/uL (0.3-0.8); Monocytes Percent Auto 12.1 % (1.7-12.0); Neutrophils Absolute Auto 4.2 10^3/uL (1.4-6.5); Neutrophils Percent Auto 68.9 % (43.0-75.0); Platelet Count 405 10^3/uL (150-450); Red Blood Count 3.85 10^6/uL (4.20-5.40); Red Cell Distribution Width 14.4 % (11.0-15.0); White Blood Count 6.1 10^3/uL (4.0-11.0)
[2024-04-18 09:45] LABS: Alanine Aminotransferase 25 U/L (14-59); Albumin Globulin Ratio 0.9; Albumin Level 2.7 g/dL (3.4-5.0); Alkaline Phosphatase 82 U/L (46-116); Anion Gap 12.3; Aspartate Amino Transferase 17 U/L (15-37); BUN Creatinine Ratio 21.9; Bilirubin Total 0.4 mg/dL (0.2-1.0); Calcium 8.9 mg/dL (8.5-10.1); Carbon Dioxide 28.4 mmol/L (21.0-32.0); Chloride 105 mmol/L (98-107); Estimated GFR (African America >60 (>=60); Estimated GFR (Non-African Ame >60 (>=60); Globulin 3.1 g/dL; Glucose 144 mg/dL (74-106); Potassium 3.7 mmol/L (3.5-5.1); Sodium 142 mmol/L (136-145); Total Protein 5.8 g/dL (6.4-8.2)
== END 2024-04-18 08:45 | disposition home or self-care (01) ==
LOC: LAB 08:46
PROVIDERS: PCP Family Medicine; Visit Provider Psychiatry & Neurology Neurology
DX: G35 Multiple sclerosis (principal)
CPT/HCPCS: 36415; 80053; 85025

== ENCOUNTER 2024-08-23 11:45 | Outpatient (OUT) | payer MEDICARE, MEDICAID, SELFPAY ==
--- OUTSIDE RECORDS SUMMARY | 2024-08-23 11:48 | XMS_ITS | CCD ---
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 Phone ELTAHAWY, EHAB A Unavailable [...] source) Penicillins Drug allergy (disorder) 06-02-2015 [facility] Repository (2 sources) Sulfonamides (Antibiotic) Drug allergy (disorder) 09-14-2013 [facility] Repository (1 source) hydrALAZINE Drug Allergy 04-15-2021 [facility] Repository (1 source) Penicillin Drug Allergy 09-14-2013 [facility] Repository Problems Active Problems Problem Classification Problem [...] Facility PT - Assessmentson PT - Assessments [id number]#1 .00CD:127 Normal [facility] Coding Summary.on 11-18-2022 Coding Summary. CD:[id number] G h0bWw+PGhlYWQ+FX2ODID zB54cjTWzsG0SL7qKFP4L PWAYDEPKHB0EUE0daSA1G FpjT6SncqAx NskirZVzCR27SEk2TUE1a PapICtjnZ6tlSQvR9y6Nd FzDS09aW59RXuzBRQkSeZ 3LjZpbjsgbWFy I0xrZwLzdRCwZui+PHRhY mxlIHdpZHRoPScxMDAlJy YrsGunEM6eGj9iETAtING vbGxhcHNlOiBj a2heJJEbLPohOS8mcMayJ 4AhoGB3PCJuz4o9Id86oC I+OISiKQF7uHmeCRizb53 4PjGkx8rcPPT5 vQOlDXwnJBO9C08xn6Z4U LRsBTOgIHL9qDK8aI7ayD rekzszV3RgeOJuQfF6KSS 6wXEsdG9dnOnr fqiudJ6mYlt+O37MPC2EE VRFLE5JIls0H1JtQehlnY I+BC44OTNbJF37ySGkxRM fe4adeMf4FvUa DTZqHVK7jDrpAMdkq3ZiI EKnE43ubGWrf2H4ZFQczK gnzJWyRlIyhSH9kG3dCRk rokump6qcdcmp Yflhz8mbkg59zD31Q46gZ PcmJKNeGFW2ANZyCFOylP tpfq2nsL3vXb2+HOjxn9y jl3vtwUb8NaGm ZXIcueFeeMmoKTF7i8RvP k26Y7HqwUnqw0VsIxk1ws 66eCLxf6C9qTN9SPbpQKI eiU8rTDapCpX8 PKXwSnZvbR80sYUiEOpjT l6djHkgkGuuLP0fBSKsbw sbRBRdlW9vEFNvtDLuaPn dYP2xFYMvzgmi l685PaIiHJA5QKAsvSLlJ 3YuuT8nPsWjALWkVBQaY6 FywTJyKQnyS019SWqgHeQ 6PXLuuvDdH5Ye WVHqdAeiIuU8c8Z7Qw5Em 9RxywfyRQX3SSsyVZNyQj O9CsEdGxG5C2KbFer9JYU xdCfxUS9sD8Yg BVCtaceahiujgDJ1LCCxU HFvyO39zUBgGJheOw3gj3 U2m684IGPwQDHueR07Mp4 udDogMTBwdCBU aW0iluzsg0syiwseDoUcZ AHtDQp2FYj5ZNAnjFenFr VzVTN3ZvH9VAM4jSRnxR5 nhVvnlzaykO5w Oyc+O29mvU6eFWH3EZQ2v fcfOEBglgVvBT76WT89P0 RyPjwvdGFibGU+PGRpdiB uqQhrEO4eUmTr v2qku4SuMHroK8RyGMEuN XznBaz0UYZyMHG6oAS0pX 1hWKHlFFinn8F8pFS2N2B gquAsvj0lh2kl MAQuJZcyN31ccNSdu8W7D FPykAA0FRDapMfhScUdeL 93Oyc+CBSbcRjrz4ThYks uu4adx8jepVl1 IsWxCIQplpJmyVvjLIW5h 6HzXy73J17pHOwdVBCgCR AbNBAzDYKhxYpeyb4huF6 wIi8+PGNvbCB3 qBV9xM6gYGBzSuT1GPjoB 922SkUdjBAoXzzap9vks2 xlxSx8NaBmXJShqwTneGa jYHZ4s8KwNw97 D86nOPurEHIxAFLhECBnX ZYpuGwxjv4zbO6fNw1+PC 0lk5eevp31yB02sKT+PHR yDJK2zWvtHKsy IECrcY1jRCzbWwJ5IHPlJ oDhlY63oLUuKAjgCv3pdM rsnUnrWT4jDUJnptlos04 4XqSof5caKUXv bGTbUKzeCVD4Q51po1T5G TJyDNWyQHL9bXX6qJ0zbL lnbjogbGVmdDsgdmVydGl pBAbqRSkwN664 IHRvcDsnPlBhdGllbnQgT qZdZDg2N0MlMdj4XWVxmK hgZK2dePYkSOsgBm1qzXh gzKmjZX2uQDWl keoai623MjLrl5hpWLNon JEsEBxnQMV3V92yz6B5GA WhRJIwERN8aTN7xU8ynLq nbjogbGVmdDsg qxYmeIkaLUgsGXfaX266F HRvcDsnPkJpcnRoIERhdG O9NY23HU05dKSqu7K3hBP 4C3NlQUWcqgdl tekedRT3TMOoYNOgdD55G l1phGqjTx2vZBWeKGC5LZ PntDQiG6NplG8hLqQfTDI sFGXuE6DujOYi WQokL543KJcaSyP5EHGeo cWfQ8KwYXQgtDzvZvW5n5 I2Xi7QM2J0ZQ56GZ89iLQ vo2P1yQQ0S6Ip DJWaebdxqhekuCW0WFPzW QNhjI16Si7ulJlrOi6vCE SgAYL0VIQtgRCiZ9FejA6 yOiAjMDAwMDAw E1LgeLYvDFjkK655WFatH vV3HJEibbFdF4XzDNBtuN ixGzR0m1N6Wt7CVJs3EK0 2GE15cYUvu8G9 lDM4A4YeDOGkjrhhdlfcb QM1ZIUjFUWkwP49Gx0zhG uiEx2zYNXiOTK2TBWaeMI lR8BolY0yZaNw KDWxTOWpZ2FpzOLbIHupT 081XDpmNcI7BDLgmkUpC3 MjTNCilEyyBwY7c7W0Wc7 PMHBfYX41BQB6 rJI8EP09WN89G6HvJwscw GFibGU+PHRhYmxlIHdpZH RoPScxMDAlJyBzdHlsZT0 xVb2zQCBqKRZb gWejoIXnEjAcl9iwJXXaV NreZF8dmSbsG6RqyOI1CD Sik0d3Sb49A54mV4OwgMZ +NLZnaEH0fWY7 iZ1qOeLbCoN5HIleI187F vTscIAkXankp2fzs7ugtF k3CkE7DXLhvzIvlLdvBYE 8r5IxIc67J87p IHdpZHRoPSIxNSUiIHZhb Ngfpo3qpY0aJa5+PGNvbC K3xVF4pO1nKnVkEcV4ZQj bZ630DkFziZEw Chzvl6oba5acmBj9WqRmH SGxpgOckIafJMP7n7NtZg 43X2WhjOtca2AhLhu5mq0 9sLEyq0I8lYJ2 G9DuJBZebwpccGNfmJzmQ E6bHWMpfetkOFWmsB6mGZ NxM1j0RbFbQpV3EUygO4L hhgX4PEBxwKBg CHeuLCP3T81bo4G5UBAhL NEyUGP9wFE9mD8qdAlmad ogbGVmdDsgdmVydGljYWw cROsoA490NZTl jTplCWHisH3iJHClpATgk QgrOU9pYBEcygenYcTQJK xSGDEXH1HYRqDZES23WW9 5nIWqj8H5xJI7 E2EmUAHsqqxghgzrkSC9Y WSzEFWtuK14fTQrGLyhZo 6ig7B1v991NPTkEMGtqW0 8Nf4jeWhaSKRi rBNGsA2biyysx2ehzzsqL hWjMNIxXOw7XZc1WSFwvU wqObOnWGI8LeS4CIY4hFO urI3lkGwsjduz eK9gNje+PBJnVMzoJGi7T TwvdGQ+SBUtUWW6gEsuQJ biMSHaiA8hODUfQ6g3PtD tIiB2HNaiQ2Tp DNCxzsatDp28sJ8pFrRoO iJ0TZvwQ0QjtsX8QPXveE MbNEurMMY4A85ks2K2NAH xUFAfUPX8wLS3 lE9hvVulhxoavUPfmJreb zOjwUguYJgaDLpeX509CB RvcDsnPjUxIFllYXJzPC9 1GX47cUYrd6Q0 vJQ1S8AaBGJyayzkbpsny MD0WTDvAYTzvS58wBExJN ciIo9ma6A4l975DJQvYCH tiF66Rq4sjVmh PCGnxGSSpE9kdaxqv7nzw xusAsNqIRDuJOx9GHu8NC RrzQjlOiAbDII6JiT9ZFK 2rYHqkQ3mbLte gujnfX2qKax+RmVtYWxlP Y90WX90gMSyq3S8wQE2E6 DvUDIsclsukfcgeNH1YET rCGYiqE45hWWn SEekAp9xs6D0f060QKWgX QIakN32Xm5qbHhoSWJmuZ ZIxJ5dosbtq6otogmcQxI sHWXiIQq5EUo6 OCTzvTbkYnTwUXM6WlC8U UU0eIGuzZ6wtBkjgquyrR 9wOyc+XlWkwBJynC8qSA1 0ZL54P3EwCncj dGFibGU+PHRhYmxlIHdpZ HRoPScxMDAlJyBzdHlsZT 5sBn9qAMFxSYFeyKqlnFV gRvCkb1ecVEMy HAcxPI5rvPezM6SixYZ6L UNfo7t4Bo35M52yI7RoeP A+WYZsrTV7iKV9yK6sJnY pSaY3RUwbI707 EyIwnBBvJrkvb7ipx8okd Zu8RjHlWKHypcXncFyfHG V3j0ZiCm91N49iNMcuUYW oPSIyMCUiIHZh dSrxlx7pxG2aOi8+PGNvb DZ8aGE6mY2uFlZbFiN4IR siG171YvNdkOMfIjgdK18 wP3ZqbIR+PHRy Pki5KXIpvWuzJA2xeAQeV NcjRw2aJTQ0YnPwWjJdCT ajH1BlWNYjgzntfcxlfVX 6MELqZQUzmM89 Ys1wuCbhQe4yZZMvZZM4B KNuiHWpY0VbkS1bNxYpNX MxOBGfG5WnqXRyQDnzP33 0RXfaMmS0OYWe coOdU9FgCQLuyCneWhU2y 5P2Ve6YpFqdhZKnPY0bMu RrRNe0P1RgYof3OKGmyNo mZW4koAQeUMrb Ct0skZslhKgfNR3mDXZhg vguj490WiDqe2dzGJVeuN OxCXmwOHW1Y10ye6S4ZXL vKHPsANQ5bQG1 hJ2gjWroxtcpbVIjmNegi bZpfHwjTZffBHuyT456GA BhoAnfTkTYChf4N0BsAjo 7FOVuuMqzWF7y mAAfYCpoNw3neNbsmFmuF B7jKGRxychfp595HbUnz1 ddIGRyhWVyQIvvDFU4H68 mo8W7OFDwFDFe KYU0eGX0bS4okOhgfmlxa GVmdDsgdmVydGljYWwtYW gqI894DANulJzxVf3EPyp 2J0DhLtx3JKVo ePubAA9ayONtHJglSk3ik HesrUvmHO3uSEJpsakpj3 16GgHkf8teXJYjzKCkXYz eHUZ5H88ef1V5 FKRePPPgLLO4cHB9oZ3vl GlnbjogbGVmdDsgdmVydG guZGxjHBrcD540IJEniZh nPlBheWVyOjwv dGQ+NI98ne73K1SaMffeK rm4KDPaPXI6lUW3gP6wIJ BuHKjpv7E8oCJ7V2SnxrV ycz2me2vtTGTt ZTog (more content not included)... Normal [facility] Insurance Correspondenceon 0 11-18-2022 Insurance Correspondence [id number]# 1.00CD:127 [facility] Consent for Treatmenton 11-02 Consent for Treatment [id number]#1 .00CD:127 [facility] PT - Orderson 11-17-2022 PT - Orders [id number]#1 .00CD:127 [facility] CBC AUTO DIFFon 11-04-2022 BASO # 0.0 103/ul Normal 0.0-0.1 [facility] Comment on above: Performed By: #### C BC ####[facility] [address] [place] [id number]. Linnea Jane Basophils/100 WBC (Bld) 0.3 % Normal 0.2-2.0 [facility] Comment on above: Performed By: #### C BC ####[facility] [address] [place] [id number]. Linnea Jane EO # 0.2 103/ul Normal 0.0-0.7 [facility] Comment on above: Performed By: #### C BC ####[facility] [address] [place] [id number]. Linnea Jane Eosinophils/100 WBC (Bld) 3.3 % Normal 0.9-7.0 [facility] Comment on above: Performed By: #### C BC ####[facility] [address] [place], [place] [address]Dr. Linnea Jane Erythrocyte distribution width (RBC) [Ratio] 13.7 % Normal 11.0-15.0 [facility] Comment on above: Performed By: #### C BC ####[facility] [address] [place], [place] [address]Dr. Linnea Jane Hematocrit (Bld) [Volume fraction] 37.1 % Normal 36.0-48.0 [facility] Comment on above: Performed By: #### C BC ####[facility] [address] [place], [place] [address]Dr. Linnea Jane Hemoglobin (Bld) [Mass/Vol] 12.2 g/dL Normal 12.0-16.0 [facility] Comment on above: Performed By: #### C BC ####[facility] [address] [place] [id number]. Linnea Jane IG # 0.06 10e3/ul Critically high 0.00-0.03 [facility] Comment on above: Performed By: #### C BC ####[facility] [address] [place] [id number]. Linnea Jane IG % 1.0 % Critically high 0.0-0.5 [facility] Comment on above: Performed By: #### C BC ####[facility] [address] [place] [id number]. Linnea Jane LYMPH # 0.4 103/ul Critically low 1.2-3.8 [facility] Comment on above: Performed By: #### C BC ####[facility] [address] [place] [id number]. Linnea Jane Lymphocytes/100 WBC (Bld) 6.8 % Critically low 20.5-60.0 [facility] Comment on above: Performed By: #### C BC ####[facility] [address] [place] [id number]. Linnea Jane MANUAL DIFF REQ NO Normal [facility] Comment on above: Performed By: #### C BC ####[facility] [address] [place] [id number]. Linnea Jane MCH (RBC) [Entitic mass] 28.4 pg Normal 26.7-34.0 [facility] Comment on above: Performed By: #### C BC ####[facility] [address] [place] [id number]. Linnea Jane MCHC (RBC) [Mass/Vol] 32.9 g/dL Normal 29.9-35.2 [facility] Comment on above: Performed By: #### C BC ####[facility] [address] [place] [id number]. Linnea Jane MCV (RBC) [Entitic vol] 86.5 fL Normal 81.0-99.0 [facility] Comment on above: Performed By: #### C BC ####[facility] [address] [place] [id number]. Linnea Jane MONO # 0.7 103/ul Normal 0.3-0.8 [facility] Comment on above: Performed By: #### C BC ####[facility] [address] [place] [id number]. Linnea Jane Monocytes/100 WBC (Bld) 11.3 % Normal 1.7-12.0 [facility] Comment on above: Performed By: #### C BC ####[facility] [address] [place] [id number] Contrerasbelem Jane NEUT # 4.5 103/ul Normal 1.4-6.5 [facility] Comment on above: Performed By: #### C BC ####[facility] [address] [place] [address]DrDaniel Jane Neutrophils/100 WBC (Bld) 77.3 % Critically high 43.0-75.0 [facility] Comment on above: Performed By: #### C BC ####[facility] [address] [place] [id number] Jane Platelet mean volume (Bld) [Entitic vol] 9.0 fL Critically low 9.5-13.5 [facility] Comment on above: Performed By: #### C BC ####[facility] [address] [place] [id number]. Linnea Jane PLT 429 103/ul Normal 150-450 [facility] Comment on above: Performed By: #### C BC ####[facility] [address] [place] [id number] Jane RBC 4.29 106/ul Normal 4.20-5.40 [facility] Comment on above: Performed By: #### C BC ####[facility] [address] [place] [id number] Jane WBC 5.8 103/ul Normal 4.0-11.0 [facility] Comment on above: Performed By: #### C BC ####[facility] [address] [place], [place] [address]IbDr. Linnea Jane FREE T3on 11-04-2022 FREE T3 2.58 pg/mlL Normal 2.18-3.98 [facility] Comment on above: Performed By: #### C MP, FT3, LIPID, T4, TSH #### [facility] [address] [place], [place] [address] Dr. Linnea Jane GLYCOHEMOGLOBIN A1Con 2022 ADA RECOMMENDATION SEE BELOW Normal [facility] Comment on above: Result Comment: ADA RECOMMENDED LIMIT 4.0 - 6.0 ADA THERAPEUTIC TARGET < 7.0 ACTION SUGGESTED > 7.0 Performed By: #### A 1C #### [facility] [address] [place] [address] Dr. Linnea Jane Glucose [Mass/Vol] 151 mg/dL Normal [facility] Comment on above: Performed By: #### A 1C #### [facility] [address] [place] [address] Dr. Linnea Jane HbA1c (Bld) [Mass fraction] 6.9 % Critically high 4.5-6.2 [facility] Comment on above: Performed By: #### A 1C #### [facility] [address] [place] [address] Dr. Linnea Jane LIPID PROFILEon 11-04-2022 CHOL-HDL RATIO NORM SEE BELOW Normal [facility] Comment on above: Result Comment: 3.3 - 4.4 LOW RISK 4.4 - 7.1 AVERAGE RISK 7.1 - 11.0 MODERATE RISK >11.0 HIGH RISK Performed By: #### C MP, FT3, LIPID, T4, TSH #### [facility] [address] [place] [address] Dr. Linnea Jane Cholesterol [Mass/Vol] 174 mg/dL Normal <=200 [facility] Comment on above: Performed By: #### C MP, FT3, LIPID, T4, TSH #### [facility] [address] [place] [address] Dr. Linnea Jane Cholesterol in HDL [Mass/Vol] 74 mg/dL Critically high 40-60 [facility] Comment on above: Performed By: #### C MP, FT3, LIPID, T4, TSH #### [facility] [address] [place] [address] Dr. Linnea Jane Cholesterol in LDL [Mass/Vol] 82.2 mg/dL Normal [facility] Comment on above: Performed By: #### C MP, FT3, LIPID, T4, TSH #### [facility] [address] [place] [address] Dr. Linnea Jane Cholesterol.total/Cho lesterol in HDL [Mass ratio] 2.4 {ratio} Normal [facility] Comment on above: Performed By: #### C MP, FT3, LIPID, T4, TSH #### [facility] [address] [place] [address] [address] Linnea Jane HDL NORMAL > or = 60 mg/dl - LO W CARDIOVASCULAR RISK <40 mg/dl - HIGH CARDIOVASCULAR RISK Normal [facility] Comment on above: Performed By: #### C MP, FT3, LIPID, T4, TSH #### [facility] [address] [place] [address] [address] Linnea Jane LDL CALC NORMAL SEE BELOW Normal [facility] Comment on above: Result Comment: <100 mg/dl OPTIMAL 100 - 129 mg/dl NEAR OR ABOVE OPTIMAL 130 - 159 mg/dl BORDERLINE HIGH 160 - 189 mg/dl HIGH >190 mg/dl VERY HIGH Performed By: #### C MP, FT3, LIPID, T4, TSH #### [facility] [address] [place] [address] [address] Linnea Jane Triglyceride [Mass/Vol] 89 mg/dL Normal <=150 [facility] Comment on above: Performed By: #### C MP, FT3, LIPID, T4, TSH #### [facility] [address] [place] [address] [address] Linnea Jane VLDL CALC 17.8 mg/dL Normal [facility] Comment on above: Performed By: #### C MP, FT3, LIPID, T4, TSH #### [facility] [address] [place] [address] [address] Linnea Jane PROF 14(COMP METB)on 023 Albumin [Mass/Vol] 3.2 g/dL Critically low 3.4-5.0 [facility] Comment on above: Performed By: #### C MP, FT3, LIPID, T4, TSH #### [facility] [address] [place] [address] Dr. Linnea Jane Albumin/Globulin [Mass ratio] 1.0 {ratio} Normal [facility] Comment on above: Performed By: #### C MP, FT3, LIPID, T4, TSH #### [facility] [address] [place] [address] Dr. Linnea Jane ALP [Catalytic activity/Vol] 77 U/L Normal 46-116 [facility] Comment on above: Performed By: #### C MP, FT3, LIPID, T4, TSH #### [facility] [address] [place] [address] Dr. Linnea Jane ALT [Catalytic activity/Vol] 36 U/L Normal 14-59 [facility] Comment on above: Performed By: #### C MP, FT3, LIPID, T4, TSH #### [facility] [address] [place] [address] Dr. Linnea Jane Anion gap [Moles/Vol] 9.7 mmol/L Normal [facility] Comment on above: Performed By: #### C MP, FT3, LIPID, T4, TSH #### [facility] [address] [place] [address] Dr. Linnea Jane AST [Catalytic activity/Vol] 20 U/L Normal 15-37 [facility] Comment on above: Performed By: #### C MP, FT3, LIPID, T4, TSH #### [facility] [address] [place] [address] Dr. Linnea Jane Bilirubin [Mass/Vol] 0.5 mg/dL Normal 0.2-1.0 [facility] Comment on above: Performed By: #### C MP, FT3, LIPID, T4, TSH #### [facility] [address] [place] [address] Dr. Linnea Jane Calcium [Mass/Vol] 9.3 mg/dL Normal 8.5-10.1 [facility] Comment on above: Performed By: #### C MP, FT3, LIPID, T4, TSH #### [facility] [address] [place] [address] Dr. Linnea Jane Chloride [Moles/Vol] 104 mmol/L Normal 98-107 [facility] Comment on above: Performed By: #### C MP, FT3, LIPID, T4, TSH #### [facility] [address] [place], [place] [address] Dr. Linnea Jane CO2 [Moles/Vol] 31.7 mmol/L Normal 21.0-32.0 [facility] Comment on above: Performed By: #### C MP, FT3, LIPID, T4, TSH #### [facility] [address] [place] [address] Dr. Linnea Jane Creatinine [Mass/Vol] 0.63 mg/dL Normal 0.55-1.02 [facility] Comment on above: Performed By: #### C MP, FT3, LIPID, T4, TSH #### [facility] [address] [place] [address] Dr. Linnea Jane EGFR-AF GUINEAN >60 Normal >=60 [facility] Comment on above: Performed By: #### C MP, FT3, LIPID, T4, TSH #### [facility] [address] [place] [address] Dr. Linnea Jane EGFR-NON AF GUINEAN >60 Normal >=60 [facility] Comment on above: Performed By: #### C MP, FT3, LIPID, T4, TSH #### [facility] [address] [place] [address] Dr. Linnea Jane Globulin (S) [Mass/Vol] 3.1 g/dL Normal [facility] Comment on above: Performed By: #### C MP, FT3, LIPID, T4, TSH #### [facility] [address] [place] [address] Dr. Linena Jane Glucose [Mass/Vol] 131 mg/dL Critically high 74-106 [facility] Comment on above: Performed By: #### C MP, FT3, LIPID, T4, TSH #### [facility] [address] [place] [address] Dr. Linnea Jane Potassium [Moles/Vol] 3.4 mmol/L Critically low 3.5-5.1 [facility] Comment on above: Performed By: #### C MP, FT3, LIPID, T4, TSH #### [facility] [address] [place] [address] Dr. Linnea Jane Protein [Mass/Vol] 6.3 g/dL Critically low 6.4-8.2 [facility] Comment on above: Performed By: #### C MP, FT3, LIPID, T4, TSH #### [facility] [address] [place] [address] Dr. Linnea Jane Sodium [Moles/Vol] 142 mmol/L Normal 136-145 [facility] Comment on above: Performed By: #### C MP, FT3, LIPID, T4, TSH #### [facility] [address] [place] [address] Dr. Linnea Jane Urea nitrogen [Mass/Vol] 22.0 mg/dL Critically high 7.0-18.0 [facility] Comment on above: Performed By: #### C MP, FT3, LIPID, T4, TSH #### [facility] [address] [place] [address] Dr. Linnea Jane Urea nitrogen/Creatinine [Mass ratio] 34.9 mg/mg Normal [facility] Comment on above: Performed By: #### C MP, FT3, LIPID, T4, TSH #### [facility] [address] [place] [address] Dr. Linnea Jane T4on 11-04-2022 T4 [Mass/Vol] 8.50 ug/dL Normal 4.80-13.90 [facility] Comment on above: Performed By: #### C MP, FT3, LIPID, T4, TSH #### [facility] [address] [place] [address] Dr. Linnea Jane TSHon 11-04-2022 TSH 0.590 uIU/mL Normal 0.358-3.740 [facility] Comment on above: Performed By: #### C MP, FT3, LIPID, T4, TSH #### [facility] [address] [place] [address] Dr. Linnea Jane VITAMIN D 25 OHon 11-04-2022 VIT D 25-OH 140.4 ng/mL Normal [facility] Comment on above: Performed By: #### V ITAD #### [facility] [address] [place] [address] Dr. Linnea Jane VIT D RANGES SEE BELOW Normal [facility] Comment on above: Result Comment: <20 ng/mL Vit D deficient 20 - <30 ng/mL Vit D insufficient 30 - 100 ng/mL Vit D sufficient >100 ng/mL Potential Toxicity Performed By: #### V ITAD #### [facility] [address] [place] [address] [address] [address] Linnea Jane HEPATITIS B CORE, IgMon 12-0 Hep B Core Ab, IgM Negative Normal Negative [facility] Comment on above: Performed By: #### H EPBCOR #### [facility] [address] [place], [place] [address] Dr. Linnea Jane MRI BRAIN WO W [...] by: NEGRO BLACKMON Date: 2022-09-17 07:22 Normal [facility] XR FOREIGN BODY EYEon 2021 XR FOREIGN BODY EYE EXAMINATION: XR FOREIGN BODY EYE HISTORY: Foreign body in eye ; pre-MRI COMPARISON: No relevant comparison available. FINDINGS: ORBITS: Negative for a metallic foreign body. OTHER: Negative. IMPRESSION: 1. No metallic foreign body within the orbits. Electronically authenticated by: NEGRO BLACKMON Date: 2022-09-16 15:08 Normal [facility] Encounters Encounter Date Encounter Type Care Provider Facility Start: 02-17-2024 End: 02-17-2024 ambulatory MARSHAL PADILLA Not Available Start: 11-16-2023 End: 11-16-2023 ambulatory MARSHAL PADILLA Not Available Start: 11-17-2022 Encounter for genera l adult medical examination without abnormal findings DR KRISHAN SANABRIA [facility] Start: 11-17-2022 End: 02-16-2023 ambulatory Marshal Padilla Facility:[facility] Start: 11-04-2022 End: 11-05-[address] KRISHAN SANABRIA Facility:[facility] Start: 11-04-2022 End: 11-05-2022 Encounter for general adult medical examination without abnormal findings DR KRISHAN SANABRIA Facility:[facility] Start: 10-09-2022 End: 10-10-[address] DOCTOR WINKLER Facility:[facility] Start: 09-16-2022 End: 09-17-[address] DOCTOR WINKLER Facility:[facility] Start: 12-31-[address] KRISHAN SANARBIA Facility :[facility] Start: 06-26-2016 End: 06-27-2016 Ambulatory LELE BAZAN Facility:[facility] Payers Date Payer Category Payer Unknown [id number] 2.16.84 [id number] 1971 Unknown [id number] 2.16.84 [id number] 1971 Unknown [id number] 2.16.84 [id number] 1971 Unknown [id number] 2.16.84 [id number] 1971 Unknown [id number] 2.16.8 [id number] 1971 Unknown [id number] 2.16.84 [id number] 1971 Unknown [id number] 2.16.84 [id number] 1958 Medicaid [id number] 1958 Medicare [id number] 1958 Self-pay Medicare [id number] Summary Purpose Family History No Family History Records FoundNo Family History Records FoundNo Family History Records FoundNo Family History Records Found Advance Directives No Advanced Directives Records FoundNo Advanced Directives Records FoundNo Advanced Directives Records FoundNo Advanced Directives Records Found Additional Source Comments INFORMATION SOURCE (unrecogn ized section and content) DATE CREATED AUTHOR 04/28/2018 [facility] DATE CREATED AUTHOR AUTHOR'S ORGANIZ ATION 11/18/2022 [facility] DATE CREATED AUTHOR AUTHOR'S ORGANIZ ATION 02/16/2023 [facility] DATE CREATED AUTHOR AUTHOR'S ORGANIZ ATION 02/18/2024 [facility] FOR RECORDS PERTAINING TO PATIENTS WHO ARE [...] BE BASED ON THE PRIMARY CLINICAL RECORDS. [facility] [employer] [facility]. provides no warranty or guarantee of the accuracy or completeness of information in this document.
== END 2024-08-23 11:46 | disposition home or self-care (01) ==
LOC: RAD 11:46
PROVIDERS: PCP Family Medicine; Visit Provider Family Medicine
DX: K59.00 Constipation, unspecified (principal)
CPT/HCPCS: 74022

== ENCOUNTER 2024-09-23 09:33 | Outpatient (OUT) | payer MEDICARE, MEDICAID, SELFPAY ==
--- OUTSIDE RECORDS SUMMARY | 2024-09-23 09:48 | XMS_ITS | CCD ---
Author Organization [facility] Care Team Providers Care Director Speech Language Name Role Phone ELTAHAWY, EHAB A Unavailable [...] PADILLA Attending Unavailable MARSHAL PADILLA Attending Unavailable Krishan Sanabria MD Primary Care Provider [phone] Allergies Allergy Classification Reported Allergen(s) Allergy Type Date of Onset Reaction(s) Facility (1 source) Penicillins Drug allergy (disorder) 06-02-2015 [facility] Repository (2 sources) Sulfonamides (Antibiotic) Drug allergy (disorder) 09-14-2013 [facility] Repository (1 source) hydrALAZINE Drug Allergy 04-15-2021 [facility] Repository (1 source) Penicillin Drug Allergy 09-14-2013 [facility] Repository (1 source) atorvastatin Drug Allergy 04-30-2023 [facility] (1 source) hydrALAZINE Drug Allergy 04-16-2022 Unknown [facility] (1 source) Penicillins Drug Allergy 04-16-2022 Unknown [facility] (1 source) Sulfonamides (Antibiotic) Drug Allergy 04-30-2023 [facility] Medications Current Medications Medication Drug Class(es) Dates Sig (Normalized) Sig (Original) biotin 10 mg oral tablet (1 source) take 1 tablet by mouth every twelve hours biotin 10 MG tablet Take 10 mg by mouth every 12 (twelve) hours. Active busPIRone hydrochloride 7.5 mg oral tablet (1 source) Start: 4 End: 5 take 1 tablet by mouth in the morning, then take 1 tablet by mouth in the evening, then take 1 tablet by mouth at bedtime busPIRone (Buspar) 7.5 MG tablet Indications: Multiple sclerosis (CMS/HCC) Take 1 tablet (7.5 mg) by mouth in the morning and 1 tablet (7.5 mg) in the evening and 1 tablet (7.5 mg) before bedtime. 270 tablet 3 07/26/2024 07/26/2025 Active carvedilol 12.5 mg oral tablet (1 source) alpha-Adrenergic Diamante, beta-Adrenergic Diamante take 1 tablet by mouth in the morning, then take 1 tablet by mouth in the evening, then take 1 tablet by mouth at bedtime carvedilol (Coreg) 12.5 MG tablet Take 12.5 mg by mouth in the morning and 12.5 mg in the evening and 12.5 mg before bedtime. Active cholecalciferol 1.25 mg oral capsule (1 source) Vitamin D take 1 capsule by mouth every week cholecalciferol (Vitamin D-3) 1.25 MG (61512 UT) capsule Take 1 capsule by mouth 1 (one) time per week. Active 168 hr cloNIDine 0.29815 mg/hr transdermal system (1 source) Central alpha-2 Adrenergic Agonist cloNIDine (Catapres-TTS) 0.2 MG/24HR Place 1 patch on the skin 1 (one) time per week. Active corticotropin 80 unt/ml injectable solution (1 source) Adrenocorticotropic Hormone Start: 4 corticotropin (Acthar) 80 UNIT/ML injectable gel Indications: Multiple sclerosis (CMS/HCC) , Acute relapsing multiple sclerosis (CMS/HCC) Inject 1 mL (80 Units) into the shoulder, thigh, or buttocks Daily 1 mL 05/16/2024 Active dexamethasone 2 mg oral tablet (1 source) Corticosteroid Start: 4 dexAMETHasone (Decadron) 2 MG tablet Indications: Multiple sclerosis (CMS/HCC) TAKE THREE TABLETS BY MOUTH DAILY FOR 3 DAYS, TWO TABLETS FOR 3 DAYS, THEN ONE TABLET FOR 3 DAYS AND THEN STOP (9 DAYS TOTAL) 18 tablet 1 03/10/2024 Active ferrous sulfate 325 mg oral tablet (1 source) take 1 tablet by mouth at mealtime ferrous sulfate 325 (65 Fe) MG tablet Take 325 mg by mouth in the morning. Take with meals. Active 24 hr fesoterodine fumarate 4 mg extended release oral tablet (1 source) Start: 3 take 1 tablet by mouth in the morning, then take 1 tablet by mouth every twenty-four hours fesoterodine ER (Toviaz) 4 MG 24 hr tablet Take 4 mg by mouth in the morning. 11/20/2022 Active fluconazole 200 mg oral tablet (1 source) Azole Antifungal Start: 4 take 1 tablet by mouth in the morning fluconazole (Diflucan) 200 MG tablet Indications: Acute relapsing multiple sclerosis (CMS/HCC) TAKE 1 TABLET (200 MG) BY MOUTH IN THE MORNING FOR 9 DAYS. 9 tablet 1 05/16/2024 Active meclizine hydrochloride 25 mg oral tablet (1 source) Antiemetic Start: 4 take 1 tablet by mouth three times daily as needed for dizziness meclizine (Antivert) 25 MG tablet Indications: Dizziness TAKE 1 TABLET (25 MG) BY MOUTH 3 (THREE) TIMES A DAY NEEDED FOR DIZZINESS. 30 tablet 11 11/30/2023 Active 10 ml ocrelizumab 30 mg/ml injection (1 source) ocrelizumab (Ocrevus) 300 MG/10ML solution Infuse 300 mg into a venous catheter See administration instructions. Does 2 times yearly Active potassium chloride 10 meq extended release oral tablet (1 source) take 1 tablet by mouth twice daily at mealtime potassium chloride CR (Klor-Con) 10 MEQ ER tablet TAKE ONE TABLET BY MOUTH TWICE A DAY WITH FOOD FOR 30 DAYS Active rosuvastatin calcium 10 mg oral tablet (1 source) HMG-CoA Reductase Inhibitor take 1 tablet by mouth in the morning rosuvastatin (Crestor) 10 MG tablet Take 10 mg by mouth in the morning. Active tiZANidine 4 mg oral capsule (1 source) Central alpha-2 Adrenergic Agonist Start: 4 End: take 2 capsules by mouth in the morning, then take 2 capsules by mouth in the evening, then take 2 capsules by mouth at bedtime, then take 2 capsules by mouth three times daily tiZANidine (Zanaflex) 4 MG capsule Indications: Multiple sclerosis (CMS/HCC) Take 2 capsules (8 mg) by mouth in the morning and 2 capsules (8 mg) in the evening and 2 capsules (8 mg) before bedtime. 2 tabs TID. 540 capsule 08/22/2024 11/20/2024 Active Problems Active Problems Problem Classification Problem Date Documented Da te Episodic/Chronic Acute cerebrovascular disease (3 sources) Cerebellar infarction; Translations: [Cerebral infarction, unspecified] Onset: 04-30-2023 08-29-2024 Chronic Acute myocardial infarction (2 sources) Acute non-ST segment elevation myocardial infarction; Translations: [Non-ST elevation (NSTEMI) myocardial infarction] Onset: 04-30-2023 04-30-2023 Chronic Anxiety disorders (1 source) Anxiety; Translations: [Anxiety disorder, unspecified] Onset: 11-16-2023 11-16-2023 Chronic Diabetes mellitus without complication (2 sources) Type 2 diabetes mellitus without complications; Translations: [Type 2 diabetes mellitus] Onset: 11-17-2022 11-16-2023 Chronic Essential hypertension (2 sources) Essential (primary) hypertension; Translations: [Hypertensive disorder] Onset: 11-17-2022 04-30-2023 Chronic Malaise and fatigue (4 sources) Fatigue; Translations: [Other fatigue] Onset: 08-15-2021 08-29-2024 Episodic Multiple sclerosis (5 sources) Multiple sclerosis; Translations: [Acute relapsing multiple sclerosis] Onset: 08-15-2021 Chronic Nutritional deficiencies (2 sources) Vitamin D deficiency, unspecified; Translations: [Vitamin D deficiency] Onset: 11-17-2022 11-16-2023 Chronic Osteoarthritis (2 sources) Osteoarthritis; Translations: [Unspecified osteoarthritis, unspecified site] Onset: 11-16-2023 11-16-2023 Chronic Other circulatory disease (4 sources) Stricture of artery; Translations: [STRICTURE OF ARTERY] Onset: 06-26-2016 Chronic Other gastrointestinal disorders (1 source) Irritable bowel syndrome; Translations: [Irritable bowel syndrome without diarrhea] Onset: 11-16-2023 11-16-2023 Chronic Residual codes; unclassified (2 sources) Amnesia; Translations: [Other amnesia] 08-29-2024 Episodic Unclassified (2 sources) Unknown / UNK(Unknown) Onset: 06-26-2016 Past or Other Problems Problem Classification Problem Date Documented Da te Episodic/Chronic Conditions associated with dizziness or vertigo (2 sources) Dizziness; Translations: [Dizziness and giddiness] Onset: 08-15-2021 04-30-2023 Episodic Nonspecific chest pain (1 source) Chest pain, unspecified; Translations: [CHEST PAIN, UNSPECIFIED] Onset: 06-26-2016 Episodic Other connective tissue disease (1 source) Muscle pain; Translations: [Myalgia, unspecified site] Onset: 04-16-2022 04-30-2023 Episodic Skin and subcutaneous tissue infections (1 source) Cellulitis; Translations: [Cellulitis, unspecified] Onset: 05-16-2024 05-16-2024 Episodic Unclassified (1 source) Other general symptoms and signs; Translations: [OTHER GENERAL SYMPTOMS AND SIGNS] Onset: 06-26-2016 Episodic Results Test Name Value Interpretation Reference Range Facility PT - Assessmentson PT - Assessments [id number]#1 [id number]:127 Normal [facility] Coding Summary.on 11-18-2022 Coding Summary. [id number] G h0bWw+PGhlYWQ+ZS4MUYE tD59vvQEflS2VB0qNTF8D RRNYITXBWD9CHG5zqPH5P SvwH9UkyuOt FzekpAPtQY26PXt8AUL5w VvvKUvliW1ziAJlR8i3Sd GiCO39oP16LUieMOEwXfR 3LjZpbjsgbWFy A0sqKiHevPYdWwi+PHRhY mxlIHdpZHRoPScxMDAlJy NgcBzdQY5sVp5cKGWyJQE vbGxhcHNlOiBj u1kkHSMmQGvuPL5beFssK 5LbtLW6BUUsg5d4Kq06eT I+WTZlNLE3oMluEIpna98 6GxMjp6dlVRM3 jPHlVYucTLF4J62rf7S4V DDdLQNnNRK4wWN7qU2zlT ugvketT5FmnPCcVkC5JCG 6xEDxoK6zoBnz elxgyW1yKpf+J67SPK2TT RGWWN3DYje7H4YmVvmrgX I+UQ70IJRdQY95oUQymAN fq6zqxAo6AtAy GHEpVWF3dLjmUBxby5VyD LSfM82nuWXcu8Y4OEIyxN dvtWAlQcUioAC9hD7dPFi awyjmt0uabfqw Jcomk5zawc69zS41B77bD HpiOHCnBGB3SQJkQOAhdZ qjei9hfR0nBt2+INkxc3l wq1umoWq6DuAb JJFffkQdiTqrRLW5n7WgF e21A2NltNcou7SiLbz9my 38pFGtl5Z8gZA3BSilAGZ kxW9eTRmyExV4 DWEqMjWvjG63kFQrRQsjI q6nePpbyQixGT8kEIHkzn doJBCznH7lDHEigROvnFo eRN7qGHRkembt p838EgLgLFS0XVIfaFOcG 0IsrR7xCpPcCCKoVRXbJ5 FvzZFwSKezT186RLunRkL 1VMEhaeNfH9Bm CZXpjEolWoO5j1O2Lw9On 4CihxppGTU5CVkmJEBbVi Q7DbXlKyJ4Y9QsYsy2IJG fiCduES7xO2Nh FACslpfoiwdypOD0GDGwZ MYapF53hYZeILchOg3nj7 I3d183OPTfVQVgrK74Yy7 udDogMTBwdCBU eQ6xofdph7igblvdTfWcT CTyJTq9DQp2KBYpmFmxLu UhPML5EdK3HVD6xVPumV3 jrPsyjcnuiJ5y Oyc+U22obC5yDMU3UYM9y llcWHTldxZaHL93VI50H6 RyPjwvdGFibGU+PGRpdiB byUbvYP5iClRu o6hvb3HkRUreE8HlZGTlP DouSsa4RZFiAHE8zZE3xD 6cJXTzHVcke0H9zWS1P2O qhpNgkk1lv1jh BBZeLRpsZ90aaEQrs2C4X LSrvKJ3UEOloDogRkXkcV 93Oyc+TNAbjXtqw3SmOse mb7myu7ranPb6 KnIlTULabxCaxKvsXPC4y 2JaKb72W39oKHubDEEkAX AtFZBcUGDbmVfjji2dzY5 wIi8+PGNvbCB3 oGE6xS2aOHMeTzB7BVbmU 307BvYrfSLfUjmcc3sgi3 jenTq1OeYoRTHpliYorRw tCYS0v3KdUw29 N90oOEqgBTEnUEYrXKXjR NCphFhzpa2ogO4kRw3+PC 2hs2yfno93nX11eLQ+PHR pGKG7yVvqZPdz KICluH6wQQbkUsH9LMKkZ kOrxC91xJLtGWcuPl5hmT koeAiqAX9tGWHwhsfkq09 3EqNow5azCOXp sMTzFOlqMRI7L11kb0K3Q XPqPDMpEGK1zAZ0bB8dhV lnbjogbGVmdDsgdmVydGl wZYrtOJzoO816 IHRvcDsnPlBhdGllbnQgT cUtNPt4K6CaGzw3YEVlkK urVI3qqLMlLXsgUm7ygEa xeLzlND0rSECm bylng904GnZhw9xrAEKlt PYhNMpcFSP1S98gn0T5MI YeDIEsONJ0kSS5tK7gmGp nbjogbGVmdDsg rdLodRmcZFrmFVqjZ395Q HRvcDsnPkJpcnRoIERhdG S6PW06LX40wRQok8F8vOD 1I0GoVMXyxzgd pcvaeAN4LTUxYTQewE03X o9mdWsgOg4oYSMaDVU0VQ MvsKTeM2JlkB9dHbUoNKK aWQVnU8LmlDOc WFgjR608NWzpFrJ1ZCBue uKaU2BnFRMdvBwuIzF3e5 T1Ee4EE8S4ED22LV13hSD tf9J0zRZ3O9Bp CQCmsmbkhkhexMC7UWNiV FKeuS40Gl5ddJmyVk6rGI FkEKJ9SWDajXDiI4SoyW3 yOiAjMDAwMDAw G0SfrUWdHYbxJ528LUqkU sE1MYCneqBlJ9SnMCCuuS uwMtG5a8Q3Bt5UJPs7QY0 7TQ74pKMvu6F9 yBV4I8ZaNPKlijsaqcmzh HG8OTErBCWbgN65Lk5snV byEz4eYRGcTOI8XXKmyEI lF5SkjU6zFpWn BODtTQWnI0IkwMReGTbjG 490LNisZbE8RNOclaOzP7 TmXGQeoGphPqR5q5D4Ym4 GXRSeOL52DJH5 qAS6GF10PR60Y2KyYondv GFibGU+PHRhYmxlIHdpZH RoPScxMDAlJyBzdHlsZT0 tNm7aGKYiYXIj rPvnrGXwAuRvn8vzSHLvT ZxwTR2ovXhyO9DjhVC8AT Wjw4z0Ik37I00yA3JgpBJ +NTBtgJD7uVJ4 dH9aBuLiIrP4HNqfQ175T mZofKTxHipha0nls1xksJ f7PsA9THYexnGcxPozIZP 2j3YgDc20R29b IHdpZHRoPSIxNSUiIHZhb Nuksl3sfB7eMt7+PGNvbC F5aEB8nX6hNaSlMvT6GUb qM811TuHqbLHz Rkuxr9qmw3atpEm1WgVaA WCxtaPdcBikGIX8q6EpCr 14C4DxkZofc1NeRir4lj9 8jBJdq2Q3mKU2 I8QyTSPwnnbjaRHxnCdoA X4gTRLxayeaAMFzsK6sAB InB7n0RiJwUzD9YOquM7K koaH5RAXcgANz YBdnFIQ7L59jh7D3ODNvO LVeYME6iRX8sS7ueEacpq ogbGVmdDsgdmVydGljYWw wCRaiX753BSLj lDtlQUPnzN2vQSIyxDKld JyyYM8bSZKrkqkhRlHCEB uVYUBPA9VUDkCFSB28FJ9 5zDWox0R9lSD4 E3GfAWUrjvbwifpuzCF6P UXmKMZplF34jYNoTVryGu 5aj1G8k862TNWsQPMamG2 8Yb7iuIxoCVHn eZQHdL1xqjoks8vyncehT xKiZMUjUCa3SJu8RMWdrN smHsYhXYH5MyJ4SQQ1lBC saC8obWknxujr gJ9rTfd+JADxOAizBJf6H TwvdGQ+KMZwYJR7oLfqVO rbCXLsaZ6jTSOvL8s1PbV xQtY0VUbqQ4By YZNgsmguOi59fS1qLjPxP gR0UCdlX4NmehF0ILWftV FtZKiqPGT0Y77um2Z6RAP iPGKcHPQ5zWA9 nW8yoNekvwofcOJqhRsva zBgbXvpKXwkTIwkB743FK RvcDsnPjUxIFllYXJzPC9 0NQ41rVFms3Q5 dHW6L1PdAKDxtcosmsmen AS2XXPoBKXpsZ12oLAxTU eiJz6xh1A8a480DDNxAKC plM78Jq8baSdx LCTgiAEGgN2dbsnre8ewq prgPjUwUHAkGBb0GXy4YX BiqGqtRzUrBBY2YjK6JEZ 3bRLjnO9ulBdx bhkhmX0bHvv+RmVtYWxlP Q35IR19kLLjk9B4nLN8W3 WzYIJdvregalzvtQM3VMS yVENwkE34lXHn FTzmOm9hq2Q7e172DKRnW UKklM92Hv1uaHvzOLQkhX YPcQ6ilkizh8hijadoImQ mQXQeERc3IRs5 FCYijYyzHlYkEJU2OlL7C MD8iOYmiH9yiXlzabbtcK 9wOyc+YbRqtSUtzA3eDY1 1LU17H3ObLgyj dGFibGU+PHRhYmxlIHdpZ HRoPScxMDAlJyBzdHlsZT 6zAp4wPNAbVBEzbPlhtRK hOuLpq1usKBZs PRwbSJ1xdUruI2FazGM4H IBkz5d3Vo86I41zE0SseE A+WYFqsWW0jHH2gK0hQaZ hGlA1ZUuaX038 KxPwfUZcMcune7fks1etc Xx6FhYlTKJmloVmuCboFL K5c1VxJc31R89nKJbkMJX oPSIyMCUiIHZh pVinlp1njD5vTf8+PGNvb NS0wQB2hC1mVsJhPnJ7ON vfA722KrAgqIYpFdjcC18 gQ3RvhLN+PHRy Fwb0BYNlpUebLG4raMJnU TewHf0jOLU5JtAhJvXvHY arI2KjYEMrppslhqsooHM 3HBEjMYIctQ38 Gt1hyUhnQl8wWXQpFKD7C IXpiINeI4PyvI4kDyMnWP HmEJPzY7LrcYWzLPeqB17 2XAuoStP7OKWm lmFdS3AsVNZjzJviGvI4z 6C9Ea4WyHiysBYqKM5kIf MzXDl0D1UdTep3IIEoiYs zWX1yzPSaSYpz Wo5njBageDsfAJ5tDMHkp pnss473ThLhs4hbJVBanD UoDVtaPCL3S00ov5O2ALG qUDHzNIF5wEQ2 gI9chBopobkgeXHxfPwlp aSbiPcwTAqoFOcrD937UU JqoEhkDtORUlt1X8MxCya 3IAMpaMvbGC4j fXNcELjnJy3uyAhkzXpbN N4nIFAjcndur136RaKcz0 zbCOQihDIoQKldYGQ0K19 np6G9TRPiAGXy KTF5iJI3xW2bkUifzemhv GVmdDsgdmVydGljYWwtYW rcW566EJYpeOwiSs9CZyj 3S6PcNlv0WOWx mSatDJ3elFHvTSlsAd7zp UrxuRssBI8cHIAsphblj3 40SoOpi2vkUIOskSYdUGi fGHD4Y89ho4X4 JUKfRTFpRHG3yOT6rW4ui GlnbjogbGVmdDsgdmVydG tfQDgyTCmiS389SUDouGs nPlBheWVyOjwv dGQ+PJ96oj99Z7YkEiwiY hf2FUPwURG9pXH0fL4eWT WmSAtnu9P9nXX3D1AhygP gkh2tx8zaZXIl ZTog (more content not included)... [facility] Insurance Correspondenceon 0 11-18-2022 Insurance Correspondence [id number]# [id number]:[address] [facility] Consent for Treatmenton 11-02 Consent for Treatment [id number]#1 .00CD:127 Normal [facility] PT - Orderson 11-17-2022 PT - Orders [id number]#1 .00CD:127 Normal [facility] CBC AUTO DIFFon 11-04-2022 BASO # 0.0 103/ul Normal 0.0-0.1 [facility] Comment on above: Performed By: #### C BC ####[facility] [address] [address]Dr. Linnea Jane Basophils/100 WBC (Bld) 0.3 % Normal 0.2-2.0 [facility] Comment on above: Performed By: #### C BC ####[facility] [address] [place], [place] [address]Dr. Linnea Jane EO # 0.2 103/ul Normal 0.0-0.7 [facility] Comment on above: Performed By: #### C BC ####[facility] [address] [place], [place] [address]Dr. Linnea Jane Eosinophils/100 WBC (Bld) 3.3 % Normal 0.9-7.0 [facility] Comment on above: Performed By: #### C BC ####[facility] [address] [place], [place] [address]Dr. Linnea Jane Erythrocyte distribution width (RBC) [Ratio] 13.7 % Normal 11.0-15.0 [facility] Comment on above: Performed By: #### C BC ####[facility] [address] [place], [place] [address]Dr. Linnea Jane Hematocrit (Bld) [Volume fraction] 37.1 % Normal 36.0-48.0 [facility] Comment on above: Performed By: #### C BC ####[facility] [address] [place], [place] [address]Dr. Linnea Jane Hemoglobin (Bld) [Mass/Vol] 12.2 g/dL Normal 12.0-16.0 [facility] Comment on above: Performed By: #### C BC ####[facility] [address] [place], [place] [address]Dr. Linnea Jane IG # 0.06 10e3/ul Critically high 0.00-0.03 [facility] Comment on above: Performed By: #### C BC ####[facility] [address] [address]Dr. Linnea Jane IG % 1.0 % Critically high 0.0-0.5 [facility] Comment on above: Performed By: #### C BC ####[facility] [address] [place] [address]DrDaniel Linnea Buck LYMPH # 0.4 103/ul Critically low 1.2-3.8 [facility] Comment on above: Performed By: #### C BC ####[facility] [address] [place] [address]DrDaniel Linnea Buck Lymphocytes/100 WBC (Bld) 6.8 % Critically low 20.5-60.0 [facility] Comment on above: Performed By: #### C BC ####[facility] [address] [place] [address]DrDaniel Linnea Buck MANUAL DIFF REQ NO Normal [facility] Comment on above: Performed By: #### C BC ####[facility] [address] [place] [address]DrDaniel Linnea Jane MCH (RBC) [Entitic mass] 28.4 pg Normal 26.7-34.0 [facility] Comment on above: Performed By: #### C BC ####[facility] [address] [place] [address]DrDaniel Linnea Jane MCHC (RBC) [Mass/Vol] 32.9 g/dL Normal 29.9-35.2 [facility] Comment on above: Performed By: #### C BC ####[facility] [address] [place] [address]DrDaniel Linnea Buck MCV (RBC) [Entitic vol] 86.5 fL Normal 81.0-99.0 [facility] Comment on above: Performed By: #### C BC ####[facility] [address] [place] [address]Dr. Linnea Jane MONO # 0.7 103/ul Normal 0.3-0.8 [facility] Comment on above: Performed By: #### C BC ####[facility] [address] [place] [address]Dr. Linnea Jane Monocytes/100 WBC (Bld) 11.3 % Normal 1.7-12.0 [facility] Comment on above: Performed By: #### C BC ####[facility] [address] [place] [address]Dr. Linnea Jane NEUT # 4.5 103/ul Normal 1.4-6.5 [facility] Comment on above: Performed By: #### C BC ####[facility] [address] [place], [place] [address]Dr. Linnea Jane Neutrophils/100 WBC (Bld) 77.3 % Critically high 43.0-75.0 [facility] Comment on above: Performed By: #### C BC ####[facility] [address] [place], [place] [address]Dr. Linnea Jane Platelet mean volume (Bld) [Entitic vol] 9.0 fL Critically low 9.5-13.5 [facility] Comment on above: Performed By: #### C BC ####[facility] [address] [place], [place] [address]Dr. Linnea Jane PLT 429 103/ul Normal 150-450 [facility] Comment on above: Performed By: #### C BC ####[facility] [address] [place], [place] [address]Dr. Linnea Jane RBC 4.29 106/ul Normal 4.20-5.40 [facility] Comment on above: Performed By: #### C BC ####[facility] [address] [place], [place] [address]Dr. Linnea Jane WBC 5.8 103/ul Normal 4.0-11.0 [facility] Comment on above: Performed By: #### C BC ####[facility] [address] [place], [place] [address]Dr. Linnea Jane FREE T3on 11-04-2022 FREE T3 2.58 pg/mlL Normal 2.18-3.98 [facility] Comment on above: Performed By: #### C MP, FT3, LIPID, T4, TSH #### [facility] [address] [address] [address] Linnea Jane GLYCOHEMOGLOBIN A1Con 2022 ADA RECOMMENDATION SEE BELOW Normal [facility] Comment on above: Result Comment: ADA RECOMMENDED LIMIT 4.0 - 6.0 ADA THERAPEUTIC TARGET < 7.0 ACTION SUGGESTED > 7.0 Performed By: #### A 1C #### [facility] [address] [address] [address] Linnea Jane Glucose [Mass/Vol] 151 mg/dL Normal [facility] Comment on above: Performed By: #### A 1C #### [facility] [address] [place] [address] Dr. Linnea Jane HbA1c (Bld) [Mass fraction] 6.9 % Critically high 4.5-6.2 [facility] Comment on above: Performed By: #### A 1C #### [facility] [address] [place] [address] Dr. Linnea Jane LIPID PROFILEon 11-04-2022 CHOL-HDL RATIO NORM SEE BELOW Normal [facility] Comment on above: Result Comment: 3.3 - 4.4 LOW RISK 4.4 - 7.1 AVERAGE RISK 7.1 - 11.0 MODERATE RISK >11.0 HIGH RISK Performed By: #### C MP, FT3, LIPID, T4, TSH #### [facility] [address] [address] [address] Linnea Jane Cholesterol [Mass/Vol] 174 mg/dL Normal <=200 [facility] Comment on above: Performed By: #### C MP, FT3, LIPID, T4, TSH #### [facility] [address] [place] [address] Dr. Linnea Jane Cholesterol in HDL [Mass/Vol] 74 mg/dL Critically high 40-60 [facility] Comment on above: Performed By: #### C MP, FT3, LIPID, T4, TSH #### [facility] [address] [address] [address] Linnea Jane Cholesterol in LDL [Mass/Vol] 82.2 mg/dL Normal [facility] Comment on above: Performed By: #### C MP, FT3, LIPID, T4, TSH #### [facility] [address] [address] [address] Linnea Jane Cholesterol.total/Cho lesterol in HDL [Mass ratio] 2.4 {ratio} Normal [facility] Comment on above: Performed By: #### C MP, FT3, LIPID, T4, TSH #### [facility] [address] [address] [address] Linnea Jane HDL NORMAL > or = 60 mg/dl - LO W CARDIOVASCULAR RISK <40 mg/dl - HIGH CARDIOVASCULAR RISK Normal [facility] Comment on above: Performed By: #### C MP, FT3, LIPID, T4, TSH #### [facility] [address] [address] [address] Linnea Jane LDL CALC NORMAL SEE BELOW Normal [facility] Comment on above: Result Comment: <100 mg/dl OPTIMAL 100 - 129 mg/dl NEAR OR ABOVE OPTIMAL 130 - 159 mg/dl BORDERLINE HIGH 160 - 189 mg/dl HIGH >190 mg/dl VERY HIGH Performed By: #### C MP, FT3, LIPID, T4, TSH #### [facility] [address] [address] [address] Linnea Jane Triglyceride [Mass/Vol] 89 mg/dL Normal <=150 [facility] Comment on above: Performed By: #### C MP, FT3, LIPID, T4, TSH #### [facility] [address] [address] [address] Linnea Jane VLDL CALC 17.8 mg/dL Normal [facility] Comment on above: Performed By: #### C MP, FT3, LIPID, T4, TSH #### [facility] [address] [address] [address] Linnea Jane PROF 14(COMP METB)on 023 Albumin [Mass/Vol] 3.2 g/dL Critically low 3.4-5.0 [facility] Comment on above: Performed By: #### C MP, FT3, LIPID, T4, TSH #### [facility] [address] [place] [address] Dr. Linnea Jane Albumin/Globulin [Mass ratio] 1.0 {ratio} Normal [facility] Comment on above: Performed By: #### C MP, FT3, LIPID, T4, TSH #### [facility] [address] [place] [address] Dr. Linnea Jane ALP [Catalytic activity/Vol] 77 U/L Normal 46-116 [facility] Comment on above: Performed By: #### C MP, FT3, LIPID, T4, TSH #### [facility] [address] [place] [address] Dr. Linnea Jane ALT [Catalytic activity/Vol] 36 U/L Normal 14-59 [facility] Comment on above: Performed By: #### C MP, FT3, LIPID, T4, TSH #### [facility] [address] [place] [address] Dr. Linnea Jane Anion gap [Moles/Vol] 9.7 mmol/L Normal [facility] Comment on above: Performed By: #### C MP, FT3, LIPID, T4, TSH #### [facility] [address] [place] [address] Dr. Linnea Jane AST [Catalytic activity/Vol] 20 U/L Normal 15-37 [facility] Comment on above: Performed By: #### C MP, FT3, LIPID, T4, TSH #### [facility] [address] [place] [address] Dr. Linnea Jane Bilirubin [Mass/Vol] 0.5 mg/dL Normal 0.2-1.0 [facility] Comment on above: Performed By: #### C MP, FT3, LIPID, T4, TSH #### [facility] [address] [place] [address] Dr. Linnea Jane Calcium [Mass/Vol] 9.3 mg/dL Normal 8.5-10.1 [facility] Comment on above: Performed By: #### C MP, FT3, LIPID, T4, TSH #### [facility] [address] [place] [address] Dr. Linnea Jane Chloride [Moles/Vol] 104 mmol/L Normal 98-107 [facility] Comment on above: Performed By: #### C MP, FT3, LIPID, T4, TSH #### [facility] [address] [place] [address] Dr. Linnea Jane CO2 [Moles/Vol] 31.7 mmol/L Normal 21.0-32.0 [facility] Comment on above: Performed By: #### C MP, FT3, LIPID, T4, TSH #### [facility] [address] [place] [address] Dr. Linnea Jane Creatinine [Mass/Vol] 0.63 mg/dL Normal 0.55-1.02 [facility] Comment on above: Performed By: #### C MP, FT3, LIPID, T4, TSH #### [facility] [address] [place] [address] Dr. Linnea Jane EGFR-AF [place] >60 Normal >=60 [facility] Comment on above: Performed By: #### C MP, FT3, LIPID, T4, TSH #### [facility] [address] [place] [address] Dr. Linnea Jane EGFR-NON AF [place] >60 Normal >=60 [facility] Comment on above: Performed By: #### C MP, FT3, LIPID, T4, TSH #### [facility] [address] [place] [address] Dr. Linnea Jane Globulin (S) [Mass/Vol] 3.1 g/dL Normal [facility] Comment on above: Performed By: #### C MP, FT3, LIPID, T4, TSH #### [facility] [address] [place] [address] Dr. Linnea Jane Glucose [Mass/Vol] 131 mg/dL Critically high 74-106 [facility] Comment on above: Performed By: #### C MP, FT3, LIPID, T4, TSH #### [facility] [address] [place] [address] Dr. Linnea Jane Potassium [Moles/Vol] 3.4 mmol/L Critically low 3.5-5.1 [facility] Comment on above: Performed By: #### C MP, FT3, LIPID, T4, TSH #### [facility] [address] [place] [address] Dr. Linnea Jane Protein [Mass/Vol] 6.3 g/dL Critically low 6.4-8.2 [facility] Comment on above: Performed By: #### C MP, FT3, LIPID, T4, TSH #### [facility] [address] [place] [address] Dr. Linnea Jane Sodium [Moles/Vol] 142 mmol/L Normal 136-145 [facility] Comment on above: Performed By: #### C MP, FT3, LIPID, T4, TSH #### [facility] [address] [place] [address] Dr. Linnea Jane Urea nitrogen [Mass/Vol] 22.0 mg/dL Critically high 7.0-18.0 [facility] Comment on above: Performed By: #### C MP, FT3, LIPID, T4, TSH #### [facility] [address] [place] [address] Dr. Linnea Jane Urea nitrogen/Creatinine [Mass ratio] 34.9 mg/mg Normal [facility] Comment on above: Performed By: #### C MP, FT3, LIPID, T4, TSH #### [facility] [address] [place] [address] Dr. Linnea Jane T4on 11-04-2022 T4 [Mass/Vol] 8.50 ug/dL Normal 4.80-13.[address] [facility] Comment on above: Performed By: #### C MP, FT3, LIPID, T4, TSH #### [facility] [address] [place] [address] Dr. Linnea Jane TSHon 11-04-2022 TSH 0.590 uIU/mL Normal 0.358-3.[address] [facility] Comment on above: Performed By: #### C MP, FT3, LIPID, T4, TSH #### [facility] [address] [address] [address] Linnea Jane VITAMIN D 25 OHon 11-04-2022 VIT D 25-OH 140.4 ng/mL Normal [facility] Comment on above: Performed By: #### V ITAD #### [facility] [address] [address] [address] Linnea Jane VIT D RANGES SEE BELOW Normal [facility] Comment on above: Result Comment: <20 ng/mL Vit D deficient 20 - <30 ng/mL Vit D insufficient 30 - 100 ng/mL Vit D sufficient >100 ng/mL Potential Toxicity Performed By: #### V ITAD #### [facility] [address] [place] [address] Dr. Linnea Jane HEPATITIS B CORE, IgMon - Hep B Core Ab, IgM Negative Normal Negative [facility] Comment on above: Performed By: #### H EPBCOR #### [facility] [address] [place] [address] Dr. Linnea Jane MRI BRAIN WO W [...] by: NEGRO BLACKMON Date: 2022-09-17 07:22 Normal [facility] XR FOREIGN BODY EYEon 2021 XR FOREIGN BODY EYE EXAMINATION: XR FOREIGN BODY EYE HISTORY: Foreign body in eye ; pre-MRI COMPARISON: No relevant comparison available. FINDINGS: ORBITS: Negative for a metallic foreign body. OTHER: Negative. IMPRESSION: 1. No metallic foreign body within the orbits. 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 Phone: [phone] Comment on above: Cerebellar infarctio n (CMS/HCC) (Primary Dx); Other fatigue; Memory loss Start: 02-17-2024 End: 02-17-2024 ambulatory MARSHAL PADILLA Not Available Start: 11-16-2023 End: 11-16-2023 ambulatory MARSHAL PADILLA Not Available Start: 11-17-2022 Encounter for genera l adult medical examination without abnormal findings DR KRISHAN SANABRIA [facility] Start: 11-17-2022 End: 02-16-2023 ambulatory Marshal Padilla Facility:[facility] Start: 11-04-2022 End: 11-05-[address] KRISHAN SANABRIA Facility:[facility] Start: 11-04-2022 End: 11-05-2022 Encounter for general adult medical examination without abnormal findings DR KRISHAN SANABRIA Facility:[facility] Start: 10-09-2022 End: 10-10-[address] DOCTOR WINKLER Facility:[facility] Start: 09-16-2022 End: 09-17-[address] DOCTOR WINKLER Facility:[facility] Start: 12-31-[address] KRISHAN SANABIRA Facility :[facility] Start: 06-26-2016 End: 06-27-2016 Ambulatory LELE BAZAN Facility:[facility] Plan of Treatment Date Care Activity Detail Author Start: 11-23-2024 End: 11-23-2024 Patient encounter procedure 11/23/2024 2:40 PM EST Office Visit [facility] [address] [place] [address] Marshal Padilla MD [address] [place] [address] [place] [address] [id number] [facility] Start: 07-03-2024 Influenza vaccination Influenza Vacc ine (#1) [facility] Start: 2011 Screening for malign ant neoplasm of breast Mammogram [facility] Start: 2001 Screening for malign ant neoplasm of cervix [facility] Start: 1992 Screening for malign ant neoplasm of cervix Pap Smear [facility] Start: 1971 Screening for malign ant neoplasm of colon [facility] Immunizations Immunization Date Immunization Notes Care Provider Fa cility 09-03-2022 influenza virus vacc ine, unspecified formulation 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 2019 Medicaid MEDICAID [facility] [id number] 1971 Unknown [id number] 1971 Unknown [id number] 593 1971 Unknown [id number] 593 1971 Unknown [id number] 593 1971 Unknown [id number] 727 1971 Unknown [id number] 1259 1971 Unknown [id number] 1259 1959 Medicaid [id number] 1958 Medicare [id number] 1958 Self-pay Medicare [id number] Social History Date Type Detail Facility Start: 04-30-2023 Tobacco smoking stat [facility] Never smoked tobacco [facility] Start: 04-30-2023 Tobacco use and exposure Smoke less tobacco non-user [facility] Start: 06-15-2024 Alcoholic beverage intake Life time non-drinker (finding) [facility] Start: 06-15-2024 History of Social function [facility] Start: 06-15-2024 Tobacco use panel [facility] Start: 1971 Sex assigned at Not on file [facility] Medical Equipment Procedure Code Equipment Code Equipment Origin al Text Equipment Identifier Dates 1 each by Other route if needed. Start: 11-07-2022 History of Present illness Narrative 08-29-2024 Federica Romano NP - 08/29/2024 12:03 PM EDT Note Date & Type Note Facility 08-29-2024 History of Presen t illness Narrative [facility] memory testing ordered, referral placed and sent to patient to complete. documented in this encounter [facility] Evaluation note Note Date & Type Note Facility Evaluation note Diagnosis Cerebellar infarction (CMS/HCC)- Primary Unspecified cerebral artery occlusion with cerebral infarction Other fatigue Memory loss documented in this encounter [facility] Summary Purpose Family History No Family History Records FoundNo Family History Records FoundNo Family History Records FoundNo Family History Records Found Advance Directives No Advanced Directives Records FoundNo Advanced Directives Records FoundNo Advanced Directives Records FoundNo Advanced Directives Records Found Additional Source Comments INFORMATION SOURCE (unrecogn ized section and content) DATE CREATED AUTHOR 04/28/2018 [facility] DATE CREATED AUTHOR AUTHOR'S ORGANIZ ATION 11/18/2022 [facility] DATE CREATED AUTHOR AUTHOR'S ORGANIZ ATION 02/16/2023 [facility] DATE CREATED AUTHOR AUTHOR'S ORGANIZ ATION 02/18/2024 [facility] [employer] Care Teams (unrecognized sec tion and content) Director Speech Language Relationship Specialty Start Date End Date Krishan Sanabria MD [address] [place] [id number] PCP - General Family Medicine 06/15/24 FOR RECORDS PERTAINING TO PATIENTS WHO ARE [...] BE BASED ON THE PRIMARY CLINICAL RECORDS. [facility] COM DEV [facility]. provides no warranty or guarantee of the accuracy or completeness of information in this document.
[2024-09-23 10:03] LABS: Basophils Percent Auto 0.6 % (0.2-2.0); Eosinophils Absolute Auto 0.2 10^3/uL (0.0-0.7); Eosinophils Percent Auto 2.3 % (0.9-7.0); Hematocrit 37.5 % (36.0-48.0); Hemoglobin 12.4 g/dL (12.0-16.0); Immature Granulocytes Abs Auto 0.01 10^3/uL (0.00-0.03); Immature Granulocytes Pct Auto 0.2 % (0.0-0.5); Lymphocytes Percent Auto 15.1 % (20.5-60.0); Mean Corpuscular HGB Conc 33.1 g/dL (29.9-35.2); Mean Corpuscular Hemoglobin 28.9 pg (26.7-34.0); Mean Corpuscular Volume 87.4 fL (81.0-99.0); Mean Platelet Volume 9.2 fL (9.5-13.5); Monocytes Absolute Auto 0.7 10^3/uL (0.3-0.8); Monocytes Percent Auto 10.4 % (1.7-12.0); Neutrophils Absolute Auto 4.7 10^3/uL (1.4-6.5); Neutrophils Percent Auto 71.4 % (43.0-75.0); Platelet Count 346 10^3/uL (150-450); Red Blood Count 4.29 10^6/uL (4.20-5.40); Red Cell Distribution Width 12.4 % (11.0-15.0); White Blood Count 6.6 10^3/uL (4.0-11.0)
[2024-09-23 10:27] LABS: Estimated Average Glucose 131 mg/dL; Glycohemoglobin A1C 6.2 % (4.5-6.2)
[2024-09-23 11:14] LABS: Alanine Aminotransferase 26 U/L (14-59); Albumin Globulin Ratio 1.1; Albumin Level 3.2 g/dL (3.4-5.0); Alkaline Phosphatase 90 U/L (46-116); Anion Gap 14.5; Aspartate Amino Transferase 23 U/L (15-37); BUN Creatinine Ratio 22.9; Bilirubin Total 0.3 mg/dL (0.2-1.0); Calcium 9.7 mg/dL (8.5-10.1); Carbon Dioxide 28.5 mmol/L (21.0-32.0); Chloride 106 mmol/L (98-107); Chol HDL Ratio 2.4; Cholesterol 156 mg/dL (<=200); Estimated GFR (African America >60 (>=60 mL/min/1.73m^2); Estimated GFR (Non-African Ame >60 (>=60 mL/min/1.73m^2); Glucose 118 mg/dL (74-106); HDL Cholesterol 65 mg/dL (40-60); Sodium 145 mmol/L (136-145); Thyroid Stimulating Hormone 1.107 uIU/mL (0.358-3.740); Total Protein 6.2 g/dL (6.4-8.2); Triglycerides 75 mg/dL (<=150)
[2024-09-23 11:18] LABS: Free T3 3.27 pg/mL (2.18-3.98)
== END 2024-09-23 09:34 | disposition home or self-care (01) ==
LOC: LAB 09:36
PROVIDERS: PCP Family Medicine; Visit Provider Family Medicine
DX: E86.0 Dehydration (principal); G35 Multiple sclerosis; Z12.11 Encounter for screening for malignant neoplasm of colon; R73.9 Hyperglycemia, unspecified
CPT/HCPCS: 36415; 80053; 80061; 83036; 84436; 84443; 84480; 84481; 85025

== ENCOUNTER 2024-10-06 13:00 | Inpatient (IN) | payer MEDICARE, MEDICAID, SELFPAY ==
[2024-10-06] VITALS (7 sets, daily range): BP systolic 142–185; BP diastolic 96–120; PULSE 78–120; TEMP 36.6–37.2; O2SAT 96–99; BMI 21.3; BMI 21.0
--- OUTSIDE RECORDS SUMMARY | 2024-10-06 13:29 | XMS_ITS | CCD ---
Author Organization [facility] Care Team Providers Care Sales Financial Analyst Name Role Phone ELTAHAWY, EHAB A Unavailable [...] Unavailable Krishan Sanabria MD Primary Care Provider Allergies Allergy Classification Reported Allergen(s) Allergy Type Date of Onset Reaction(s) Facility (1 source) Penicillins Drug allergy (disorder) 06-02-2015 [facility] Repository (2 sources) Sulfonamides (Antibiotic) Drug allergy (disorder) 09-14-2013 [facility] Repository (1 source) hydrALAZINE Drug Allergy 04-15-2021 [facility] Repository (1 source) Penicillin Drug Allergy 09-14-2013 [facility] Repository (2 sources) atorvastatin Drug Allergy 04-30-2023 [facility] Healthcare (2 sources) hydrALAZINE Drug Allergy 04-16-2022 Unknown [facility] Healthcare (2 sources) Penicillins Drug Allergy 04-16-2022 Unknown [facility] Healthcare (2 sources) Sulfonamides (Antibiotic) Drug Allergy 04-30-2023 [facility] Healthcare Medications Current Medications Medication Drug Class(es) Dates Sig (Normalized) Sig (Original) biotin 10 mg oral tablet (2 sources) take 1 tablet by mouth every twelve hours biotin 10 MG tablet Take 10 mg by mouth every 12 (twelve) hours. Active busPIRone hydrochloride 7.5 mg oral tablet (2 sources) Start: 4 End: 5 take 1 tablet [...] 07/26/2025 Active carvedilol 12.5 mg oral tablet (2 sources) alpha-Adrenergic Diamante, beta-Adrenergic Diamante take 1 tablet by mouth in the morning, then take 1 tablet by mouth in the evening, then take 1 tablet by mouth at bedtime carvedilol (Coreg) 12.5 MG tablet Take 12.5 mg by mouth in the morning and 12.5 mg in the evening and 12.5 mg before bedtime. Active cholecalciferol 1.25 mg oral capsule (2 sources) Vitamin D take 1 capsule by mouth every week cholecalciferol (Vitamin D-3) 1.25 MG (93956 UT) capsule Take 1 capsule by mouth 1 (one) time per week. Active 168 hr cloNIDine 0.99025 mg/hr transdermal system (2 sources) Central alpha-2 Adrenergic Agonist cloNIDine (Catapres-TTS) 0.2 MG/24HR Place 1 patch on the skin 1 (one) time per week. Active corticotropin 80 unt/ml injectable solution (2 sources) Adrenocorticotropic Hormone Start: 4 corticotropin (Acthar) 80 UNIT/ML injectable gel Indications: Multiple sclerosis (CMS/HCC) , Acute relapsing multiple sclerosis (CMS/HCC) Inject 1 mL (80 Units) into the shoulder, thigh, or buttocks Daily 1 mL 05/16/2024 Active dexamethasone 2 mg oral tablet (2 sources) Corticosteroid Start: 4 dexAMETHasone (Decadron) 2 MG tablet Indications: Multiple sclerosis (CMS/HCC) TAKE THREE TABLETS BY MOUTH DAILY FOR 3 DAYS, TWO TABLETS FOR 3 DAYS, THEN ONE TABLET FOR 3 DAYS AND THEN STOP (9 DAYS TOTAL) 18 tablet 1 03/10/2024 Active ferrous sulfate 325 mg oral tablet (2 sources) take 1 tablet by mouth at mealtime ferrous sulfate 325 (65 Fe) MG tablet Take 325 mg by mouth in the morning. Take with meals. Active 24 hr fesoterodine fumarate 4 mg extended release oral tablet (2 sources) Start: 3 take 1 tablet by mouth in the morning, then take 1 tablet by mouth every twenty-four hours fesoterodine ER (Toviaz) 4 MG 24 hr tablet Take 4 mg by mouth in the morning. 11/20/2022 Active fluconazole 200 mg oral tablet (2 sources) Azole Antifungal Start: 4 take 1 tablet by mouth in the morning fluconazole (Diflucan) 200 MG tablet Indications: Acute relapsing multiple sclerosis (CMS/HCC) TAKE 1 TABLET (200 MG) BY MOUTH IN THE MORNING FOR 9 DAYS. 9 tablet 1 05/16/2024 Active meclizine hydrochloride 25 mg oral tablet (2 sources) Antiemetic Start: 4 take 1 tablet by mouth three times daily as needed for dizziness meclizine (Antivert) 25 MG tablet Indications: Dizziness TAKE 1 TABLET (25 MG) BY MOUTH 3 (THREE) TIMES A DAY NEEDED FOR DIZZINESS. 30 tablet 11 11/30/2023 Active 10 ml ocrelizumab 30 mg/ml injection (2 sources) ocrelizumab (Ocrevus) 300 MG/10ML solution Infuse 300 mg into a venous catheter See administration instructions. Does 2 times yearly Active potassium chloride 10 meq extended release oral tablet (2 sources) take 1 tablet by mouth twice daily at mealtime potassium chloride CR (Klor-Con) 10 MEQ ER tablet TAKE ONE TABLET BY MOUTH TWICE A DAY WITH FOOD FOR 30 DAYS Active rosuvastatin calcium 10 mg oral tablet (2 sources) HMG-CoA Reductase Inhibitor take 1 tablet by mouth in the morning rosuvastatin (Crestor) 10 MG tablet Take 10 mg by mouth in the morning. Active tiZANidine 4 mg oral tablet (3 sources) Central alpha-2 Adrenergic Agonist Start: take 2 tablets by mouth three times daily at bedtime tiZANidine (Zanaflex) 4 MG tablet Indications: Multiple sclerosis (CMS/HCC) TAKE TWO TABLETS BY MOUTH THREE TIMES A DAY ( IN THE MORNING , IN THE EVENING , AND BEFORE BEDTIME ) 540 tablet 09/22/2024 Active Start: 08-22-2024 End: 11-20-2024 take 2 capsules by mouth in the [...] bedtime. 2 tabs TID. 540 capsule 08/22/2024 09/22/2024 Discontinued Problems Active Problems Problem Classification Problem Date Documented Da te Episodic/Chronic Acute cerebrovascular disease (4 sources) Cerebellar infarction; Translations: [Cerebral infarction, unspecified] Onset: 04-30-2023 08-29-2024 Chronic Acute myocardial infarction (4 sources) Acute non-ST segment elevation myocardial infarction; Translations: [Non-ST elevation (NSTEMI) myocardial infarction] Onset: 04-30-2023 04-30-2023 Chronic Anxiety disorders (2 sources) Anxiety; Translations: [Anxiety disorder, unspecified] Onset: 11-16-2023 11-16-2023 Chronic Diabetes mellitus without complication (3 sources) Type 2 diabetes mellitus without complications; Translations: [Type 2 diabetes mellitus] Onset: 11-17-2022 11-16-2023 Chronic Essential hypertension (3 sources) Essential (primary) hypertension; Translations: [Hypertensive disorder] Onset: 11-17-2022 04-30-2023 Chronic Multiple sclerosis (7 sources) Multiple sclerosis; Translations: [Acute relapsing multiple sclerosis] Onset: 08-15-2021 Chronic Nutritional deficiencies (3 sources) Vitamin D deficiency, unspecified; Translations: [Vitamin D deficiency] Onset: 11-17-2022 11-16-2023 Chronic Osteoarthritis (4 sources) Osteoarthritis; Translations: [Unspecified osteoarthritis, unspecified site] Onset: 11-16-2023 11-16-2023 Chronic Other circulatory disease (4 sources) Stricture of artery; Translations: [STRICTURE OF ARTERY] Onset: 06-26-2016 Chronic Other gastrointestinal disorders (2 sources) Irritable bowel syndrome; Translations: [Irritable bowel syndrome without diarrhea] Onset: 11-16-2023 11-16-2023 Chronic Residual codes; unclassified (2 sources) Amnesia; Translations: [Other amnesia] 08-29-2024 Episodic Unclassified (2 sources) Unknown / UNK(Unknown) Onset: 06-26-2016 Past or Other Problems Problem Classification Problem Date Documented Da te Episodic/Chronic Conditions associated with dizziness or vertigo (4 sources) Dizziness; Translations: [Dizziness and giddiness] Onset: 08-15-2021 04-30-2023 Episodic Malaise and fatigue (6 sources) Fatigue; Translations: [Other fatigue] Onset: 08-15-2021 08-29-2024 Episodic Nonspecific chest pain (1 source) Chest pain, unspecified; Translations: [CHEST PAIN, UNSPECIFIED] Onset: 06-26-2016 Episodic Other connective tissue disease (2 sources) Muscle pain; Translations: [Myalgia, unspecified site] Onset: 04-16-2022 04-30-2023 Episodic Skin and subcutaneous tissue infections (2 sources) Cellulitis; Translations: [Cellulitis, unspecified] Onset: 05-16-2024 05-16-2024 Episodic Unclassified (1 source) Other general symptoms and signs; Translations: [OTHER GENERAL SYMPTOMS AND SIGNS] Onset: 06-26-2016 Episodic Results Test Name Value Interpretation Reference Range Facility PT - Assessmentson PT - Assessments [id number] 5 [id number]#1 .00CD:127 Normal [facility] Coding Summary.on 11-18-2022 Coding Summary. CD:[id number] G h0bWw+PGhlYWQ+YV7YAPR aZ15mqWCwfS1FK8zDKX3N VWKJQDVDON5QXM1thPP6G VwlN4WhvbQr FmaeaFVmFK30YQh7GBJ0n YsgWMvnkD2snALcK2h3Xo WgWQ32dK44MRaeUKMuIfU 3LjZpbjsgbWFy Z0atFjFqxQIqDkf+PHRhY mxlIHdpZHRoPScxMDAlJy FaqBnbLZ7jKe5mECIzUDA vbGxhcHNlOiBj o1kaWWHfCHohYO1cqCqaN 4NbfDM7TBOfc6g3Va75hT I+DKUfEVE5mDpnMWwdt38 1AmKuo8wqSPP7 jQLtBAapTMV4N50ig0Z9L IYoNLNoTTD9hZC8fS7ljO kpmpakN3AoeFBhYcU6FYW 5eYRgsI5xdAka ywnciV0pLli+R73IUG3MD CELIR4GKny8G5EoPwglhJ I+RE90JSSpNX58wQAwnUJ ts4jphHj5HgHx NZVbXLH0bWniALxzl1XnR YAjZ61uaGSbr5K6FLNagH yypRMyZaRglJV2nY1xCGx zqkudt6edchlp Tsqyi6xewx65nZ28O08vX DztSOQzMWN6EJCoOMZdkW zxaw7bkJ8tCa6+VSnwv5s ek7humFp5KjZx GIWnqkHqoMzvZZB3b9ImH h92N0AmqBbdr5SeIny2bp 93hYYtn6Y6mOF0CZgbMZP chM9uHOvnMmA8 UEErVqKmoW12xQMeMXpgD f2niOmboGlvGI7tLIXngz zmEPQkhR7kHFUpaOGbhUz lXK1dWXDgpsvx r159RpRcYNI4DJFkuIXgZ 3GotH1sJtSwZPRgSPBrE1 NuyAXeSAqaC088NMozBeR 0KEXrgcGjQ6Jw KMRroGfeIcV6l8M7Tx8Uw 0OukrhjGFI4TUcaZSCxWa H1HmAkJeI5Z5InErr1WLX ygUgtER1yX7Bu UGEpuxrrkwvorIE0ECHoW TErbC09zKJrTLzcIc4we9 G3u478DGTmCKRrwR39Zc5 udDogMTBwdCBU aK3kmepef2saxwkbSpDfO UEpITi8DPd8XBFmrFweBh KuTVT7SdT4OTX3eSQhzR4 zkNpawxyefY0i Oyc+J55tbG9bPJL2VYN0k umzOMGahwImJB78ZK13H2 RyPjwvdGFibGU+PGRpdiB crQqoVK4bRiIm d4noe1SnRSeeA0TbOHWbH CavZxw9UMZjIET7bTT2nW 1xMSVaRKdsc2A9zYT6D3M kupApal9ql6il RMOrXMmeC58xxGTvf9R3K MDyfJL6CTIgaNbeFnSppV 93Oyc+MWSvqGoue7XdHhn qj7hhu3mzdVs5 ZxCsKOVpxzOjxJzcRIU8h 3NmIh74L30rWUajAYMaGQ HyWTViSRNuqVvdiu8pqI7 wIi8+PGNvbCB3 oEA5iR1tXQKtGmS8FVwnW 518CcPjpTOsMolzu4rzj6 rboGf4UtDuPMNnivYvhIc zUMD3c4HkWd52 E53kDFwbHZNyTVFjPUQjD GUtbQahal1umF6nCo7+PC 6mm1vqne36nD82uNF+PHR dTIF7gPujLPtu LFRdqR6zOZkgDoQ0DEGiE qIzzZ85hTEiTQasHi7ecB pniAetGL5jLBAczqjfx49 5NmTmo7ilBOId mRWsZPjlTSL5E62wg3P2Z RXiMHRgJGU3vRF7oV0doU lnbjogbGVmdDsgdmVydGl iLGimORsmV419 IHRvcDsnPlBhdGllbnQgT qXcHZl4I6VbAdi9FYQzuW hlPX5sjERnVGlfRg7mtSo eoXbqAH9sHRYy wlkdh141OvPjs3ukDTDrl DDyCTjaNLW7A74bo9E1OO BbQQSnIYA0yXS6kS9urXe nbjogbGVmdDsg bxRabSohQDrpJCnyY416I HRvcDsnPkJpcnRoIERhdG D3DZ22GU13xWTry8P5iGO 7J5OkNBOlkdvr rexowON7YSFtUDLubK34Y p9zsVxbBa5fXWMcZHF1WY EymNLtL9OpzL9pIeSsOGW kAUQhR2LcvLWr PQoqY424QGihNpP7EOHhx uYxU6AwIGFvcAedNqR4v8 F5Ub0QL2R8PF87OR22nYN do4G0eIT3A0Ua CPChtajxvewbjWJ9FDIoF FCjlT31Vs6zqXkmOa6vLK MqMTI1BIZdcAQaT6MwbE8 yOiAjMDAwMDAw Z8TzaPUwFGamD514WBnyF xX1TTVnkiFmS9XtEEIssW oeXeR0h2M5Ia3IVIl5NF3 9ZO30gYFzh2I6 aID6Q7ElIPCkuzweeoeke GA5CPHkOTWafD24Mb4ikZ zxRx1iBGLhPPS5VAVjvSZ tQ5SjpP4gHwPy IRYmKDCrI9XyhREtSLoeK 983HCvaJjN6CZXflwNfL2 NjVRPdrHjgQdW8b2Z9Ta4 WARPhJA83BIN6 nKN1DQ10AC07J6FvUnqla GFibGU+PHRhYmxlIHdpZH RoPScxMDAlJyBzdHlsZT0 fNn5gKKJvMEZh pLvuxDAtQqEmd4zhCXMiH EbbPS6iwKeaN5QabVV2TX Tks5t4Ja47U42xC3WtmHZ +FBEzzUU3nZY0 uG4mZkAzChG2WDusZ248D wIsqWZrSozbe2ate3xeyG a0DcX6LOUgkpUprTgbJSX 0w6GlZr96Q78o IHdpZHRoPSIxNSUiIHZhb Svpfc8gnL8fZn3+PGNvbC S7jUL5sN1mTsXgCyR2TPj sE583UzBgrTIq Jbwmu0qss7vtwYt1UhZvV JSkinPduSolESH0a8WlKb 26P3NnePuox3FhIps7hc6 3nNQhm8D8eVY1 J3OhMVCuapwgdASwiWnpZ I1lZFChkntxXAHfzN1hDD ReK4p3XlEwHkQ1LFjwW1N wldA2JDXikTLk MJgzICE3F29is4D7MYJmS NDaFMH4vJH6yE0usBzcwm ogbGVmdDsgdmVydGljYWw eMPgwR245SLJe xBjeIYXfwW6gLYYgqCLov GiiBB1nWIXgvhnsFvMCRO iFQXRWE0VJPuNGIQ21RQ5 8iAKmi3G5iIP1 V3HtVQPsjxylbxdrmEV8S TJeJSQoqL24hCFgJUpyIl 8us8H2q187HIIhQMPejB6 2Mp4jlFruZOKq aRQKyQ7jrwoxx8ntubmqB qSjSXOuPFn0NYe1JMOjpQ hpHwMeQYV2OpJ0JEO2iHY lcW6tuTodeqvl kS4eVkw+OYRvANtkSEt1F TwvdGQ+OMPoMRO9zFwrSI wcZADtsC4dKANnM6r9CtS hLeP3MAazB6Sh RMWszpiqDp55pU5bRaIiB zY2IJdfU5DungS6YGMxfA RdKGntNYS3B98cz5J6HXP nFSWnVYH4wRN2 wY1fjSjgepxvzIQdfJyxw fBniJdvFXfwHViaM924TA RvcDsnPjUxIFllYXJzPC9 9TM67aLIuh1B8 lTT7E3ZcXBQucpafopoph FP8RXVuKNPnrX22uCJvIC idMx9ma8L9o860OSQbGYB dsG14Gh0vmWtd YZFdaAJCqJ1aoyuso0sux pwxJpSsQPVmVVc5YSk9GD VmpTvzAyNbUNQ5EoI0PKA 8xJVnwD6ymLfs znjbkJ0cDjj+RmVtYWxlP E70QE08zXMeb4K2nGU4J0 FrUDOcyyhtvronuJM2ONW bAOPugD50vDFy GEvjHd3ys1U2u542WFHgV VPhmF75Lq3khZkpLGLavE URgH1pvuwsq9nzoffeWoI kAUXlNPk4VCn5 LHKfrOgzOxArZSM2IgA3F DC4sXCofV0wvGoygwlbgX 9wOyc+MfIgdUYxtW2aKG2 9NH36V3XgKlmv dGFibGU+PHRhYmxlIHdpZ HRoPScxMDAlJyBzdHlsZT 4rFy7uYPQtUVNboMqpwAH kAzBbe2rmJLTd YFoxFF4ksCrlL8AsyFL3N FExj7q2Ev28S52sP6LgnO A+TUPvrBA2qSG4kX8nTrC oCjP9LQqrT034 IsPceZLjQubbv3udd1feu Uk8KvHyKCQmhoBlvWanBX X1z7KfKx24Y63kJLdiQIU oPSIyMCUiIHZh aGvrzx0fcW3uHy9+PGNvb QK2lEC9sK2jEqAhIgA2QN orX377WlCusOWcAozrW03 zB9VctFF+PHRy Dkk0FKAgvPydPR0dsXVzQ SztJv6iTOX4PzFhNcIpTO pkP4JtQUSsjnugjzvsoNJ 8HWFfASIpkR23 Rl9fnPmcBn5qVFHpLFW6X CYwiTMrN0MuuX8iEnUtVB OnTGZwK7UppCIdELcaV19 8SYccKeW5OYYf dmAwD7AvTFHokKmxAkU4q 0W7Sy7JsBejyEVpRK7uBj QgXNu8Z1EcKtj3BZDiiKq aRK2ajMUpRKca Zk8xuWmyjWiiEL1rAOZwc rgtm680RuXll0afYNBmdR PdKPncBLH9V64kd8T3ZYV rVMYkRDK4uGL6 cZ0vcCodlmjzbCPdeVcwa mEceVldKBgoDQuqF187QL TboJweZuXFMgl4K4GjCux 1RWOmeYpfMS7f vLJzRTriRc3wwTwpyPtkZ I2lMILqjdajl495ObXui9 kzCCJnqUDbLGtgGGA6P33 is2K7ZENlMDZt MIU6aIY7tG4hdKwdwebvq GVmdDsgdmVydGljYWwtYW sdF728TOCepJfhCn8DHil 7U5ZzVms2EJOp cAnlXE8rgPXpZFbfHo0fu PdcmQhqPA2jMGPtcjoek7 71EgCdz3dwOCKzlCZqSNu cQGW0N29ff9B5 CZSjVGDqAHL6rUA4aI7xc GlnbjogbGVmdDsgdmVydG ekIVvfGZbzK804PCOvdHa nPlBheWVyOjwv dGQ+MR14qp27B7LfZcpgK tg9BGGoCMY8yJO2yT3eJP KvIDuda7A4mZA3F0GlxrM bmg9lw0ccXRYz ZTog (more content not included)... Normal [facility] Insurance Correspondenceon 0 - Insurance Correspondence [id number]# 1.00CD:127 Normal [facility] Consent for Treatmenton 11-02 Consent for Treatment [id number]#1 .00CD:127 Normal [facility] PT - Orderson 11-17-2022 PT - Orders [id number]#1 .00CD:127 Normal [facility] CBC AUTO DIFFon 11-04-2022 BASO # 0.0 103/ul Normal 0.0-0.1 [facility] Comment on above: Performed By: #### C BC ####[facility] [address] [place] [address]Dr. Linnea Jane Basophils/100 WBC (Bld) 0.3 % Normal 0.2-2.0 [facility] Comment on above: Performed By: #### C BC ####[facility] [address] [place], [place] [address]Dr. Linnea Jane EO # 0.2 103/ul Normal 0.0-0.7 [facility] Comment on above: Performed By: #### C BC ####[facility] [address] [place], [place] [address]Dr. Linnea Jane Eosinophils/100 WBC (Bld) 3.3 % Normal 0.9-7.0 [facility] Comment on above: Performed By: #### C BC ####[facility] [address] [place] [address]Dr. Linnea Jane Erythrocyte distribution width (RBC) [Ratio] 13.7 % Normal 11.0-15.0 [facility] Comment on above: Performed By: #### C BC ####[facility] [address] [place], [place] [address]Dr. Linnea Jane Hematocrit (Bld) [Volume fraction] 37.1 % Normal 36.0-48.0 [facility] Comment on above: Performed By: #### C BC ####[facility] [address] [place] [id number]. Linnea Jane Hemoglobin (Bld) [Mass/Vol] 12.2 g/dL Normal 12.0-16.0 [facility] Comment on above: Performed By: #### C BC ####[facility] [address] [place] [address]Dr. Linnea Jane IG # 0.06 10e3/ul Critically high 0.00-0.03 [facility] Comment on above: Performed By: #### C BC ####[facility] [address] [place] [address]Dr. Linnea Jane IG % 1.0 % Critically high 0.0-0.5 [facility] Comment on above: Performed By: #### C BC ####[facility] [address] [place] [address]Dr. Linnea Jane LYMPH # 0.4 103/ul Critically low 1.2-3.8 [facility] Comment on above: Performed By: #### C BC ####[facility] [address] [place] [address]Dr. Linnea Jane Lymphocytes/100 WBC (Bld) 6.8 % Critically low 20.5-60.0 [facility] Comment on above: Performed By: #### C BC ####[facility] [address] [place] [address]Dr. Linnea Jane MANUAL DIFF REQ NO Normal [facility] Comment on above: Performed By: #### C BC ####[facility] [address] [place] [address]Dr. Linnea Jane MCH (RBC) [Entitic mass] 28.4 pg Normal 26.7-34.0 [facility] Comment on above: Performed By: #### C BC ####[facility] [address] [place], [place] [address]Dr. Linnea Jane MCHC (RBC) [Mass/Vol] 32.9 g/dL Normal 29.9-35.2 [facility] Comment on above: Performed By: #### C BC ####[facility] [address] [place] [id number]. Linnea Jane MCV (RBC) [Entitic vol] 86.5 fL Normal 81.0-99.0 [facility] Comment on above: Performed By: #### C BC ####[facility] [address] [place] [id number]. Linnea Jane MONO # 0.7 103/ul Normal 0.3-0.8 [facility] Comment on above: Performed By: #### C BC ####[facility] [address] [place] [address]Dr. Linnea Jane Monocytes/100 WBC (Bld) 11.3 % Normal 1.7-12.0 [facility] Comment on above: Performed By: #### C BC ####[facility] [address] [place], [place] [address]Dr. Linnea Jane NEUT # 4.5 103/ul Normal 1.4-6.5 [facility] Comment on above: Performed By: #### C BC ####[facility] [address] [place] [address]Dr. Linnea Jane Neutrophils/100 WBC (Bld) 77.3 % Critically high 43.0-75.0 [facility] Comment on above: Performed By: #### C BC ####[facility] [address] [place], [place] [address]Dr. Linnea Jane Platelet mean volume (Bld) [Entitic vol] 9.0 fL Critically low 9.5-13.5 [facility] Comment on above: Performed By: #### C BC ####[facility] [address] [place] [id number]. Linnea Jane PLT 429 103/ul Normal 150-450 [facility] Comment on above: Performed By: #### C BC ####[facility] [address] [place], [place] [id number]. Linnea Jane RBC 4.29 106/ul Normal 4.20-5.40 [facility] Comment on above: Performed By: #### C BC ####[facility] [address] [place], [place] [address]Dr. Linnea Jane WBC 5.8 103/ul Normal 4.0-11.0 [facility] Comment on above: Performed By: #### C BC ####[facility] [address] [place] [address]Dr. Linnea Jane FREE T3on 11-04-2022 FREE T3 2.58 pg/mlL Normal 2.18-3.98 [facility] Comment on above: Performed By: #### C MP, FT3, LIPID, T4, TSH #### [facility] [address] [address] [address] Linnea Jane GLYCOHEMOGLOBIN A1Con 2022 ADA RECOMMENDATION SEE BELOW Normal [facility] Comment on above: Result Comment: ADA RECOMMENDED LIMIT 4.0 - 6.0 ADA THERAPEUTIC TARGET < 7.0 ACTION SUGGESTED > 7.0 Performed By: #### A 1C #### [facility] [address] [address] [address] Linnea Jane Glucose [Mass/Vol] 151 mg/dL Normal [facility] Comment on above: Performed By: #### A 1C #### [facility] [address] [address] [address] Linnea Jane HbA1c (Bld) [Mass fraction] 6.9 % Critically high 4.5-6.2 [facility] Comment on above: Performed By: #### A 1C #### [facility] [address] [address] [address] Linnea Jane LIPID PROFILEon 11-04-2022 CHOL-HDL RATIO NORM SEE BELOW Normal [facility] Comment on above: Result Comment: 3.3 - 4.4 LOW RISK 4.4 - 7.1 AVERAGE RISK 7.1 - 11.0 MODERATE RISK >11.0 HIGH RISK Performed By: #### C MP, FT3, LIPID, T4, TSH #### [facility] [address] [address] [address] Linnea Jane Cholesterol [Mass/Vol] 174 mg/dL Normal <=200 [facility] Comment on above: Performed By: #### C MP, FT3, LIPID, T4, TSH #### [facility] [address] [address] [address] iLnnea Jane Cholesterol in HDL [Mass/Vol] 74 mg/dL Critically high 40-60 [facility] Comment on above: Performed By: #### C MP, FT3, LIPID, T4, TSH #### [facility] [address] [address] [address] Linnea Jane Cholesterol in LDL [Mass/Vol] 82.2 mg/dL Normal [facility] Comment on above: Performed By: #### C MP, FT3, LIPID, T4, TSH #### [facility] [address] [address] [address] Linnea Jane Cholesterol.total/Cho lesterol in HDL [Mass ratio] 2.4 {ratio} Normal [facility] Comment on above: Performed By: #### C MP, FT3, LIPID, T4, TSH #### [facility] [address] [place] [address] Dr. Linnea Jane HDL NORMAL > or = 60 mg/dl - LO W CARDIOVASCULAR RISK <40 mg/dl - HIGH CARDIOVASCULAR RISK Normal [facility] Comment on above: Performed By: #### C MP, FT3, LIPID, T4, TSH #### [facility] [address] [place] [address] Dr. Linnea Jane LDL CALC NORMAL SEE BELOW Normal [facility] Comment on above: Result Comment: <100 mg/dl OPTIMAL 100 - 129 mg/dl NEAR OR ABOVE OPTIMAL 130 - 159 mg/dl BORDERLINE HIGH 160 - 189 mg/dl HIGH >190 mg/dl VERY HIGH Performed By: #### C MP, FT3, LIPID, T4, TSH #### [facility] [address] [place] [address] Dr. Linnea Jane Triglyceride [Mass/Vol] 89 mg/dL Normal <=150 [facility] Comment on above: Performed By: #### C MP, FT3, LIPID, T4, TSH #### [facility] [address] [place] [address] Dr. Linnea Jane VLDL CALC 17.8 mg/dL Normal [facility] Comment on above: Performed By: #### C MP, FT3, LIPID, T4, TSH #### [facility] [address] [place] [address] Dr. Linnea Jane PROF 14(COMP METB)on 023 Albumin [Mass/Vol] 3.2 g/dL Critically low 3.4-5.0 [facility] Comment on above: Performed By: #### C MP, FT3, LIPID, T4, TSH #### [facility] [address] [place] [address] Dr. Linnea Jane Albumin/Globulin [Mass ratio] 1.0 {ratio} Normal [facility] Comment on above: Performed By: #### C MP, FT3, LIPID, T4, TSH #### [facility] [address] [place] [address] Dr. Linnea Jane ALP [Catalytic activity/Vol] 77 U/L Normal 46-116 [facility] Comment on above: Performed By: #### C MP, FT3, LIPID, T4, TSH #### [facility] [address] [place] [address] Dr. Linnea Jane ALT [Catalytic activity/Vol] 36 U/L Normal 14-59 [facility] Comment on above: Performed By: #### C MP, FT3, LIPID, T4, TSH #### [facility] [address] [place] [address] Dr. Linnea Jane Anion gap [Moles/Vol] 9.7 mmol/L Normal [facility] Comment on above: Performed By: #### C MP, FT3, LIPID, T4, TSH #### [facility] [address] [place] [address] Dr. Linnea Jane AST [Catalytic activity/Vol] 20 U/L Normal 15-37 [facility] Comment on above: Performed By: #### C MP, FT3, LIPID, T4, TSH #### [facility] [address] [place] [address] Dr. Linnea Jane Bilirubin [Mass/Vol] 0.5 mg/dL Normal 0.2-1.0 [facility] Comment on above: Performed By: #### C MP, FT3, LIPID, T4, TSH #### [facility] [address] [place] [address] Dr. Linnea Jane Calcium [Mass/Vol] 9.3 mg/dL Normal 8.5-10.1 [facility] Comment on above: Performed By: #### C MP, FT3, LIPID, T4, TSH #### [facility] [address] [place] [address] Dr. Linnea Jane Chloride [Moles/Vol] 104 mmol/L Normal 98-107 [facility] Comment on above: Performed By: #### C MP, FT3, LIPID, T4, TSH #### [facility] [address] [place] [address] Dr. Linnea Jane CO2 [Moles/Vol] 31.7 mmol/L Normal 21.0-32.0 [facility] Comment on above: Performed By: #### C MP, FT3, LIPID, T4, TSH #### [facility] [address] [place] [address] Dr. Linnea aJne Creatinine [Mass/Vol] 0.63 mg/dL Normal 0.55-1.02 [facility] Comment on above: Performed By: #### C MP, FT3, LIPID, T4, TSH #### [facility] [address] [place] [address] Dr. Linnea Jane EGFR-AF ALBANIAN >60 Normal >=60 [facility] Comment on above: Performed By: #### C MP, FT3, LIPID, T4, TSH #### [facility] [address] [place] [address] Dr. Linnea Jane EGFR-NON AF ALBANIAN >60 Normal >=60 [facility] Comment on above: Performed By: #### C MP, FT3, LIPID, T4, TSH #### [facility] [address] [place] [address] Dr. Linnea Jane Globulin (S) [Mass/Vol] 3.1 g/dL Normal [facility] Comment on above: Performed By: #### C MP, FT3, LIPID, T4, TSH #### [facility] [address] [place] [address] Dr. Linnea Jane Glucose [Mass/Vol] 131 mg/dL Critically high 74-106 [facility] Comment on above: Performed By: #### C MP, FT3, LIPID, T4, TSH #### [facility] [address] [place] [address] Dr. Linnea Jane Potassium [Moles/Vol] 3.4 mmol/L Critically low 3.5-5.1 [facility] Comment on above: Performed By: #### C MP, FT3, LIPID, T4, TSH #### [facility] [address] [place] [address] Dr. Linnea Jane Protein [Mass/Vol] 6.3 g/dL Critically low 6.4-8.2 [facility] Comment on above: Performed By: #### C MP, FT3, LIPID, T4, TSH #### [facility] [address] [place] [address] Dr. Linnea Jane Sodium [Moles/Vol] 142 mmol/L Normal 136-145 [facility] Comment on above: Performed By: #### C MP, FT3, LIPID, T4, TSH #### [facility] [address] [place] [address] Dr. Linnea Jane Urea nitrogen [Mass/Vol] 22.0 mg/dL Critically high 7.0-18.0 [facility] Comment on above: Performed By: #### C MP, FT3, LIPID, T4, TSH #### [facility] [address] [place] [address] Dr. Linnea Jane Urea nitrogen/Creatinine [Mass ratio] 34.9 mg/mg Normal [facility] Comment on above: Performed By: #### C MP, FT3, LIPID, T4, TSH #### [facility] [address] [place] [address] Dr. Linnea Jane T4on 11-04-2022 T4 [Mass/Vol] 8.50 ug/dL Normal 4.80-13.[address] [facility] Comment on above: Performed By: #### C MP, FT3, LIPID, T4, TSH #### [facility] [address] [place] [address] Dr. Linnea Jane TSHon 11-04-2022 TSH 0.590 uIU/mL Normal 0.358-3.740 [facility] Comment on above: Performed By: #### C MP, FT3, LIPID, T4, TSH #### [facility] [address] [place] [address] Dr. Linnea Jane VITAMIN D 25 OHon 11-04-2022 VIT D 25-OH 140.4 ng/mL Normal [facility] Comment on above: Performed By: #### V ITAD #### [facility] [address] [place] [address] Dr. Linnea Jane VIT D RANGES SEE BELOW Normal [facility] Comment on above: Result Comment: <20 ng/mL Vit D deficient 20 - <30 ng/mL Vit D insufficient 30 - 100 ng/mL Vit D sufficient >100 ng/mL Potential Toxicity Performed By: #### V ITAD #### [facility] [address] [place] [address] Dr. Linnea Jane HEPATITIS B CORE, IgMon 12-0 Hep B Core Ab, IgM Negative Normal Negative [facility] Comment on above: Performed By: #### H EPBCOR #### [facility] [address] [place] [address] Dr. Linnea Jane MRI BRAIN WO W [...] by: NEGRO BLACKMON Date: 2022-09-17 07:22 Normal [facility] XR FOREIGN BODY EYEon 2021 XR FOREIGN BODY EYE EXAMINATION: XR FOREIGN BODY EYE HISTORY: Foreign body in eye ; pre-MRI COMPARISON: No relevant comparison available. FINDINGS: ORBITS: Negative for a metallic foreign body. OTHER: Negative. IMPRESSION: 1. No metallic foreign body within the orbits. Electronically authenticated by: NEGRO BLACKMON Date: 2022-09-16 15:08 Normal [facility] Encounters Encounter Date Encounter Type Care Provider Facility Start: 09-21-2024 End: 09-22-2024 Refill Marshal Padilla MD Work Phone: [facility] Comment on above: Multiple sclerosis ( CMS/HCC) Start: 08-29-2024 End: 08-29-2024 Orders Only Federiac Romano CORRESPONDENCE ANALYST Work Phone: [facility] Comment on above: Cerebellar infarctio n ([facility]/HCC) (Primary Dx); Other fatigue; Memory loss Start: 02-17-2024 End: 02-17-2024 ambulatory MARSHAL PADILLA Not Available Start: 11-16-2023 End: 11-16-2023 ambulatory MARSHAL PADILLA Not Available Start: 11-17-2022 Encounter for genera l adult medical examination without abnormal findings DR KRISHAN SANABRIA [facility] Start: 11-17-2022 End: 02-16-2023 ambulatory Marshal Padilla Facility:[facility] Start: 11-04-2022 End: 11-05-[address] KRISHAN SANABRIA Facility: Start: 11-04-2022 End: 11-05-2022 Encounter for general adult medical examination without abnormal findings DR KRISHAN SANABRIA Facility: Start: 10-09-2022 End: 10-10-[address] DOCTOR WINKLER Facility:[facility] Start: 09-16-2022 End: 09-17-[address] DOCTOR WINKLER Facility:[facility] Start: 12-31-[address] KRISHAN SANABRIA Facility :[facility] Start: 06-26-2016 End: 06-27-2016 Ambulatory LELE BAZAN Facility:[facility] Plan of Treatment Date Care Activity Detail Author Start: 11-23-2024 End: 11-23-2024 Patient encounter procedure 11/23/2024 2:40 PM EST Office Visit [facility] [address] [place] [address] Marshal Padilla MD [address] [facility] [address] [place] [id number] [facility] Start: 07-03-2024 Influenza vaccination Influenza Vacc ine (#1) [facility] Start: 2011 Screening for malign ant neoplasm of breast Mammogram [facility] Start: 2001 Screening for malign ant neoplasm of cervix [facility] Start: 1992 Screening for malign ant neoplasm of cervix Pap Smear [facility] Start: 1971 Screening for malign ant neoplasm of colon [facility] Immunizations Immunization Date Immunization Notes Care Provider Fa cility 09-03-2022 influenza virus vacc ine, unspecified formulation Federica Romano CORRESPONDENCE ANALYST Work Phone: [facility] Payers Date Payer Category Payer Private Health Insurance [employer] [id number] 2019 Medicaid [place] [id number] 1971 Unknown [id number] 1971 Unknown [id number] 1971 Unknown [id number] 1971 Unknown [id number] 1971 Unknown [id number] 1971 Unknown [id number] [id number] 1971 Unknown [id number] 1958 Medicaid [id number] 1958 Medicare [id number] 1958 Self-pay Medicare [id number] Social History Date Type Detail Facility Start: 04-30-2023 Tobacco smoking stat [facility] Never smoked tobacco [facility] Start: 04-30-2023 Tobacco use and exposure Smoke less tobacco non-user [facility] Start: 06-15-2024 Alcoholic beverage intake Life time non-drinker (finding) [facility] Start: 06-15-2024 History of Social function [facility] Start: 06-15-2024 Tobacco use panel [facility] Start: 1970 Sex assigned at Not on file [facility] Medical Equipment Procedure Code Equipment Code [...] loss documented in this encounter [facility] Evaluation note Note Date & Type Note Facility Evaluation note Diagnosis Multiple sclerosis (CMS/HCC) Multiple sclerosis documented in this encounter [facility] Summary Purpose Family History No Family History Records FoundNo Family History Records FoundNo Family History Records FoundNo Family History Records Found Advance Directives No Advanced Directives Records FoundNo Advanced Directives Records FoundNo Advanced Directives Records FoundNo Advanced Directives Records Found Additional Source Comments INFORMATION SOURCE (unrecogn ized section and content) DATE CREATED AUTHOR 04/28/2018 [facility] DATE CREATED AUTHOR AUTHOR'S ORGANIZ ATION 11/18/2022 [facility] DATE CREATED AUTHOR AUTHOR'S ORGANIZ ATION 02/16/2023 [facility] DATE CREATED AUTHOR AUTHOR'S ORGANIZ ATION 02/18/2024 [facility] dical Specialists [employer] Care Teams (unrecognized sec tion and content) Sales Financial Analyst Relationship Specialty Start Date End Date Krishan Sanabria MD [address] [place] [address] PCP - General Family Medicine 06/15/24 Sales Financial Analyst Relationship Specialty Start Date End Date Krishan Sanabria MD [address] [place] [address] PCP - General Family Medicine 06/15/24 Reason for Visit (unrecogniz ed section and content) Reason Comments Med Refill FOR RECORDS PERTAINING TO PATIENTS WHO ARE [...] BE BASED ON THE PRIMARY CLINICAL RECORDS. [employer] [facility]. provides no warranty or guarantee of the accuracy or completeness of information in this document.
--- NOTE | 2024-10-06 13:38 | CT_ITS ---
The [address] [address] Patient Name: HERMELINDO WEINBERG MRN: [id number] date: 1970 Sex: F Assigned Patient Location: ER Current Patient Location: ER Accession/Order Number: [id number] Exam Date: 10/06/2024 14:14 Report Date: 10/06/2024 15:11 At the request of: SKYLAR FIGUEREDO Procedure: CT abdomen pelvis w con CT ABDOMEN/PELVIS WITH IV CONTRAST. INDICATION: Diffuse abdominal pain. COMPARISON: 03/22/2024. TECHNIQUE: Contiguous axial images were obtained from the lung bases to the pelvic floor following the intravenous administration of contrast. Coronal and sagittal reformations are provided. FINDINGS: LOWER LUNGS: Clear. LIVER/BILIARY TREE: No mass. No intrahepatic ductal dilatation. GALLBLADDER: Status post cholecystectomy.. CBD: Normal CBD. SPLEEN: Normal in size. PANCREAS: No acute findings. No peripancreatic fluid or inflammation. No pancreatic duct dilatation. No discrete mass. ADRENALS: Normal. KIDNEYS: No hydronephrosis. No radiopaque calculus. STOMACH AND BOWEL: Stomach is unremarkable. There is diffuse colonic distention and liquid stool without discrete transition point. There is mild diffuse colonic thickening. APPENDIX: Not visualized PERITONEAL CAVITY: No fluid. No fat stranding. ABDOMINAL WALL: No subcutaneous stranding. No subcutaneous fluid collection. LYMPH NODES: No mesenteric or retroperitoneal lymphadenopathy by CT criteria. ABDOMINAL AORTA: No aneurysm. PELVIS: No acute abnormality. MUSCULOSKELETAL: No acute osseous abnormality. CT/CT abdomen pelvis w con IMPRESSION: Findings are suggestive a colonic ileus. Mild diffuse colonic thickening. Correlate for colitis.. Electronically authenticated by: SANTIAGO SPEARS Date: 10/06/2024 15:11
--- NOTE | 2024-10-06 13:39 | ED_ITS ---
HPI - Abdominal Pain General Chief Complaint: Abdominal Pain Stated Complaint: constipated, dry heaving Time Seen by Provider: 10/06/24 13:05 Source: patient and family Mode of arrival: Wheelchair History of Present Illness HPI narrative: 54-year-old female presents to the emergency department for abdominal pain. She states this time it started this morning. She took an enema and laxatives and upon arrival she had bowel movements. She continues to have the pain. The gives much of the history and states that this is an ongoing problem with her and that she has abdominal pain very frequently. No trauma or fever or blood in her stool. Related Data Home Medications ?Medication ?Instructions ?Recorded ?Confirmed buspirone 7.5 mg tablet 7.5 mg PO TID 03/22/24 03/22/24 carvedilol 12.5 mg tablet 12.5 mg PO TID 03/22/24 03/22/24 clonidine 0.3 mg/24 hr weekly 1 patch topical QWEEK 03/22/24 03/22/24 transdermal patch fesoterodine 4 mg tablet,extended 4 mg PO DAILY 03/22/24 03/22/24 release 24 hr potassium chloride 10 mEq 10 meq PO BID 03/22/24 03/22/24 tablet,extended release rosuvastatin 5 mg tablet 5 mg PO QPM 03/22/24 03/22/24 tizanidine 4 mg tablet 8 mg PO TID 03/22/24 03/22/24 Previous Rx's ?Medication ?Instructions ?Recorded doxycycline monohydrate 100 mg 100 mg PO BID 14 days #28 caps 03/24/24 capsule levofloxacin 750 mg tablet 750 mg PO DAILY 14 days #14 tabs 03/24/24 Allergies Allergy/AdvReac Type Severity Reaction Status Date / Time Penicillins Allergy Severe Verified 03/22/24 10:18 Sulfa (Sulfonamide Allergy Severe Hives Verified 03/22/24 10:18 Antibiotics) Review of Systems ROS Narrative A ten point review of systems is negative except as noted above. [facility] Medical History (Updated 10/06/24 @ 15:52 by Bakari Forman MD) Cellulitis ?L03.90 - Cellulitis, unspecified (ICD-10) Encounter for cholecystectomy ?Z76.89 - Persons encountering health services in other specified circumstances (ICD-10) Multiple sclerosis ?G35 - Multiple sclerosis (ICD-10) HTN (hypertension) ?I10 - Essential (primary) hypertension (ICD-10) Surgical History (Updated 03/22/24 @ 14:55 by Ayesha oMon) H/O hysterectomy for benign disease ?Z90.710 - Acquired absence of both cervix and uterus (ICD-10) Social History (Updated 03/22/24 @ 14:56 by Ayesha Moon) Within the past year, how often did you have a drink containing alcohol: never Score interpretation: A score less than 3 is consistent with normal alcohol consumption. Smoking status: Never smoker Non-prescribed substance use: denies use Previous occupational history: disabled Exam Narrative Exam Narrative: Nurses note and vital signs reviewed and patient is not hypoxic. General: The patient appears in no respiratory distress. She is laying on the cart with her eyes closed. Skin: Warm, dry, no pallor noted. There is no rash noted. Head: Normocephalic, atraumatic Eye: Normal conjunctiva, no drainage Ears, Nose, Mouth, and Throat: oral mucosa is moist. Nares patent. Cardiovascular: Regular Rate and Rhythm Respiratory: Patient is in no distress, no accessory muscle use, lungs are clear to auscultation, no wheezing, rales or rhonchi GI: Normal bowel sounds, mild diffuse tenderness on palpation. No masses. Musculoskeletal: The patient has no evidence of calf tenderness, no pitting edema, symmetrical pulses noted bilaterally Neurological: Awake and alert Psychiatric: Not uncooperative Constitutional Vital Signs, click to edit/add: Last Vital Signs Temp 98 F 10/06/24 13:20 Pulse 109 H 10/06/24 13:20 Resp 18 10/06/24 13:20 BP 153/120 H 10/06/24 14:14 Pulse Ox 99 10/06/24 13:20 O2 Del Method Room Air 10/06/24 13:20 Course Vital Signs Vital signs: Vital Signs Temperature 98 F 10/06/24 13:20 Pulse Rate 109 H 10/06/24 13:20 Respiratory Rate 18 10/06/24 13:20 Blood Pressure 185/100 H 10/06/24 13:20 Pulse Oximetry 99 10/06/24 13:20 Oxygen Delivery Method Room Air 10/06/24 13:20 Temperature 98 F 10/06/24 13:20 Pulse Rate 109 H 10/06/24 13:20 Respiratory Rate 18 10/06/24 13:20 Blood Pressure 153/120 H 10/06/24 14:14 Pulse Oximetry 99 10/06/24 13:20 Oxygen Delivery Method Room Air 10/06/24 13:20 MDM - Abdominal Pain MDM Narrative Medical decision making narrative: WBC is 23,[address] scan suggest colitis. She is being admitted for IV Cipro and Flagyl. Stool was heme-negative. Treatment diagnosis and disposition were discussed with the patient. Differential Diagnosis Differential diagnosis: Likely abdominal pain, constipation, diverticulitis, gastroenteritis, pancreatitis and small bowel obstruction Medical Records Attestation: I reviewed the patient's medical records. Lab Data Attestation: I reviewed the patient's lab results. Labs: Lab Results 10/06/24 10/06/24 Range/Units 13:58 15:12 WBC 23.4 H (4.0-11.0) 10^3/uL RBC 5.20 (4.20-5.40) 10^6/uL Hgb 15.0 (12.0-16.0) g/dL Hct 43.6 (36.0-48.0) % MCV 83.8 (81.0-99.0) fL MCH 28.8 (26.7-34.0) pg MCHC 34.4 (29.9-35.2) g/dL RDW 12.2 (11.0-15.0) % Plt Count 402 (150-450) 10^3/uL MPV 9.4 L (9.5-13.5) fL Seg Neuts % (Manual) 97.0 H (43.0-75.0) Lymphocytes % (Manual) 3.0 L (20.5-60.0) % Monocytes % (Manual) 0.0 L (1.7-12.0) % Eosinophils % (Manual) 0.0 L (0.9-7.0) % Basophils % (Manual) 0.0 L (0.2-2.0) % Neutrophils # (Manual) 22.69 H (1.4-6.5) 10^3/uL Lymphocytes # (Manual) 0.70 L (1.20-3.80) 10^3/uL Monocytes # (Manual) 0.00 L (0.30-0.80) 10^3/uL Eosinophils # (Manual) 0.00 (0.00-0.70) 10^3/uL Basophils # (Manual) 0.00 (0.00-0.10) 10^3/uL Anisocytosis 1+ Ovalocytes 1+ Sodium 142 (136-145) mmol/L Potassium 3.9 (3.5-5.1) mmol/L Chloride 104 (98-107) mmol/L Carbon Dioxide 25.9 (21.0-32.0) mmol/L Anion Gap 16.0 BUN 24.0 H (7.0-18.0) mg/dL Creatinine 0.94 (0.55-1.02) mg/dL Est GFR ( Amer) >60 (>=60 mL/min/1.73m^2) Est GFR (Non-Af Amer) >60 (>=60 mL/min/1.73m^2) BUN/Creatinine Ratio 25.5 Glucose 179 H (74-106) mg/dL Calcium 10.0 (8.5-10.1) mg/dL Total Bilirubin 0.6 (0.2-1.0) mg/dL Direct Bilirubin 0.1 (0.0-0.2) mg/dL AST 22 (15-37) U/L ALT 27 (14-59) U/L Alkaline Phosphatase 121 H (46-116) U/L Total Protein 6.9 (6.4-8.2) g/dL Albumin 3.7 (3.4-5.0) g/dL Globulin 3.2 g/dL Albumin/Globulin Ratio 1.2 Amylase 41 (25-115) U/L Lipase 17.0 (16.0-77.0) U/L Stool Occult Blood Negative Imaging Data CT scan - abdomen: Radiologist's impression: ITS Impressions Abdomen/Pelvis CT 10/06/24 13:38 IMPRESSION: Findings are suggestive a colonic ileus. Mild diffuse colonic thickening. Correlate for colitis.. Electronically authenticated by: SANTIAGO SPEARS Date: 10/06/2024 15:11 Discharge Plan Discharge Chief Complaint: Abdominal Pain Clinical Impression: Colitis, Leukocytosis Patient Disposition: Admitted as Observation Time of Disposition Decision: 15:52 Condition: Fair
[2024-10-06] MEDS: ONDANSETRON PF 4 MG/2 ML VIAL IV (14:11)
[2024-10-06 14:14] LABS: Hematocrit 43.6 % (36.0-48.0); Mean Corpuscular HGB Conc 34.4 g/dL (29.9-35.2); Mean Corpuscular Hemoglobin 28.8 pg (26.7-34.0); Mean Corpuscular Volume 83.8 fL (81.0-99.0); Mean Platelet Volume 9.4 fL (9.5-13.5); Platelet Count 402 10^3/uL (150-450); Red Cell Distribution Width 12.2 % (11.0-15.0); White Blood Count 23.4 10^3/uL (4.0-11.0)
[2024-10-06 14:53] LABS: Anisocytosis 1+; Ovalocytes 1+; Segmented Neut Absolute Manual 22.69 10^3/uL (1.4-6.5)
[2024-10-06 15:08] LABS: Alanine Aminotransferase 27 U/L (14-59); Albumin Globulin Ratio 1.2; Albumin Level 3.7 g/dL (3.4-5.0); Alkaline Phosphatase 121 U/L (46-116); Amylase 41 U/L (25-115); Aspartate Amino Transferase 22 U/L (15-37); BUN Creatinine Ratio 25.5; Bilirubin Direct 0.1 mg/dL (0.0-0.2); Bilirubin Total 0.6 mg/dL (0.2-1.0); Carbon Dioxide 25.9 mmol/L (21.0-32.0); Chloride 104 mmol/L (98-107); Estimated GFR (African America >60 (>=60 mL/min/1.73m^2); Estimated GFR (Non-African Ame >60 (>=60 mL/min/1.73m^2); Globulin 3.2 g/dL; Glucose 179 mg/dL (74-106); Potassium 3.9 mmol/L (3.5-5.1); Sodium 142 mmol/L (136-145); Total Protein 6.9 g/dL (6.4-8.2)
[2024-10-06 15:37] LABS: Internal Control Within Normal Limits; Occult Blood Negative
[2024-10-06] MEDS: CIPROFLOXACIN IN 5 % DEXTROSE 400 MG/200 ML PREMIX 200 MG IV (16:03)
[2024-10-06] MEDS: CARVEDILOL 12.5 MG TABLET PO ×2 (16:11→22:32)
--- OUTSIDE RECORDS SUMMARY | 2024-10-06 16:35 | XMS_ITS | CCD ---
Author Organization [facility] Care Team Providers Care Inoculator Name Role Phone ELTAHAWY, EHAB A Unavailable [...] source) Penicillins Drug allergy (disorder) 06-02-2015 [facility] Repository (2 sources) Sulfonamides (Antibiotic) Drug allergy (disorder) 09-14-2013 [facility] Repository (1 source) hydrALAZINE Drug Allergy 04-15-2021 [facility] Repository (1 source) Penicillin Drug Allergy 09-14-2013 [facility] Repository (2 sources) atorvastatin Drug Allergy 04-30-2023 [facility] Healthcare (2 sources) hydrALAZINE Drug Allergy 04-16-2022 Unknown [facility] Healthcare (2 sources) Penicillins Drug Allergy 04-16-2022 Unknown [facility] Healthcare (2 sources) Sulfonamides (Antibiotic) Drug Allergy 04-30-2023 [facility] Healthcare Medications Current Medications Medication Drug [...] every week cholecalciferol (Vitamin D-3) 1.25 MG (95652 UT) capsule Take 1 capsule by mouth 1 (one) time per week. Active 168 hr cloNIDine 0.48445 mg/hr transdermal system (2 sources) Central alpha-2 [...] Facility PT - Assessmentson PT - Assessments [id number]#1 .00CD:127 Normal [facility] Coding Summary.on 11-18-2022 Coding Summary. CD:[id number] G h0bWw+PGhlYWQ+DW1SWGQ tY49eiCBpxQ8QO6vWGB2W ERMKPYXTPR0IJW4zwMH7D BwvI9GubbAp VzexfPGxJW03LXa2NNF6k BjrJOjijD7pkDUaW6m4Fj MpLU07aF72YVycRJQdWcG 3LjZpbjsgbWFy Q7alNgQdrJNwXbu+PHRhY mxlIHdpZHRoPScxMDAlJy AniVztIK2wWm8eZHCdRDV vbGxhcHNlOiBj i4oxIIMjFVehWU7zuCklA 6OyhGM0FBQdq8y7Zy91tY I+DHPoXJY8aIfgECyqx61 7WnFet1pmRZZ4 aJRwJWwpTEV1S07ga5W2V DRtIJEoHNJ8zLJ7xK3hoU zqocyoP3SusPUwKmQ9HHA 7yRWxcY5vzWip plqmbC3pAas+X89HSC0KN ZWBEY5ZWaq5J9ZeVvzwdF I+WC61XYRtUY32yIEjfCX xj3cdtTn3RdYr AASqYOH6rTttGAmok2DxI TKgF72apFLnq8G4GDNdzZ msmMPxDjDjoAZ3qU9tUEv gvshsb1fyqqvy Xmhva1ydex24vE15S74iS LyyXPEuEVI9FPJnKOUqmX ckdk9mvL9vEk3+BXhwt8b ce5qdzEu4HfJg RRIgzbTsqPbmBBI0o9QmE o75U0RqqInlf8McMyk1oz 86mSHld2E1eWH7PZwvGTW qtS3sCAcaPhL0 FNMnUjCvwY04hVTxLEckL h7rsXbkrOfaVB3cYGIaik bkFULfbF7zCOWetVObqGd bNO2fNSMidhak d636RmIvBHR4DNDhgCUbA 5RuzY2oBwGhVAWrXLWuK1 KorCXmXDjeM742KWyeCaR 5MUWqorDdL5Bm QLZzzQwoOtD9f7I3Fg1Bl 0MmvdjbLVJ8YGdyPYErEi N7LiIhZqT3M7PoVvf6SJN tiMguGN2wC0Ii GJRigeghbuepsZO8WOBnS SYoxM32gQWxTLkcOm7km6 S1n818QLThNLIhvJ41Pa8 udDogMTBwdCBU oG0iawdrf2soqdxdXdVgZ NCgGDl8YJs4KQVdvCzxQg ViTZS3QzI5DKA7zEKmjJ5 noIhfryzyvV8q Oyc+M19rvW0qAIR3VAB8g jgaYVXaydHyNL43DZ88T8 RyPjwvdGFibGU+PGRpdiB hdIhqOO0uXyCe w0she2QjXDjdD1AcSPXhF QniGzy2TSFdSXO5fIO6jU 5vOGIcQZprd0M4oGZ1M4D naeMarg2sb6od IEZwBVjuG66lkLXjn2H6K WBimAB2ZEJgqVwaZqBibM 93Oyc+HEKemIade1XpRdf ia0vae3asnJt0 GhMbRBKyvmLqkEbnQMT5n 2TzBj99Y57bNLtzAUYdIN JyKHApQDHbmYtvqp6myE9 wIi8+PGNvbCB3 mSA3xK7bMVZwSvJ5CGirT 361YrRndPHiWjhgj8iqx8 ilaAf1VhRxFYIniwNbcEa bWIX0c1MpXo51 T27uHRazTVAnUGRnIJMzO MUbfPkvyx5flH1hOm0+PC 0tj4nxle66dY98zCC+PHR bFSO6aIznUCkp SHQslR2xOAsiEsP0GYLuC pKwqY61hAJkOJawCv3bqZ xjtNvyOV6bUODasmutg87 3IdLxt7jgTHCm zGWbBPjmWUO7Q78qz9Z8Q LHxKSRwKSI4zBC0qT6bwZ lnbjogbGVmdDsgdmVydGl qEZdkHChdR910 IHRvcDsnPlBhdGllbnQgT zZkCXg3M4MjPbe4YBAweY kyOD5uaCDfIAbvXe5yqDx oxYvxLK1zNOJp dfjdw338NbGaj2mgVAWfg NZpVLlxKIW7C71nb5U5PY ArQBRsIGI1jEB5vX7goTj nbjogbGVmdDsg ixXvdYygLTkhZRguD294S HRvcDsnPkJpcnRoIERhdG T1QP65SK33oJAuv5D5wWL 4Q9UfKFArujtb pwatsZI3NYDbOYXkpH64I r4saJofNv9xTJKqJYC0BK UliVCgT1PojM7aYrMyXWB uXMYlB2OwsQDg WBzpS660RPrwIgM2LIUsz wTwA6DnLPMqpOruYxG4x1 P7Dk0YF4F2OU58PL70pOO xl2B4nOF9Z8Om VUYdkuzezuwmaCR4PKLzB TKryB13Vc0ezDbjEc1rMD MyNTZ1OAQliWNyO6StfF3 yOiAjMDAwMDAw P2KwzFIcEVjqW870NJsaK vZ3HGYjouQxV3MtTZJkoP fnMzA6a8A4Iv2AADz1DN0 7RS19nMEsy3X8 jDL9S3BdWZCbmmkosgurj NK0QUVyDXPrlS42Ma8vfO ctCl0lUYEzMTC1KYKzrCF rL9JxyO4sCcIx MYLfDLMiF4GffJGsLSwhI 676ECxsKsV0KDRcdbQxY4 ExZDMzbGdhHlI6w7K8Hz2 QAKMoEF66CRD2 uTM2JU99RL59T0SePkcwh GFibGU+PHRhYmxlIHdpZH RoPScxMDAlJyBzdHlsZT0 dMm0kZYDkJWQo bDbupHDfPeHmu5idJMUjJ RqpJU7bsJzjQ9LaaIO5KV Qim2m6Pb97I08jV0KpuJU +RXGfmVM6cBB7 iU4nTwCcYoO7IStqW045V zCegRXjLvfkh2yyp2szfD o9YfR7JPQjyiJzeToaKDD 7c7ElIl72I94a IHdpZHRoPSIxNSUiIHZhb Widrw5dyS4dAo0+PGNvbC L6tXD9fP8eHgAkJtG5DVw fI890VfPehWAg Tcdur6log3uceHc8XuFdJ HRsyuCuxZumICE4i9UnBf 32X9HpdEsxt5BsOld2vj8 1jAZky8V7qFI8 R1CaVKWkxzozqBUkcLtwU V1dEZTvaxskCRNqaE4cIV SuC3t0QpNjGaZ4EEjyW7Y wvqI9STGcwGLv KVxpFQS3V97jb9L1GONkN YUqLII4pYS8yU6puEewkm ogbGVmdDsgdmVydGljYWw sTDrrR533ZPGs xHyqTBAbdT9wIXAssGXjl IznQF5mQZKnyxlsHuQEUJ aTXKAWO8HHXqBKGR11HF8 6bIIso6J1fVN7 C8DgRCZchhuucjmsxCQ1X IVqMYOmmL64rIAjIJoiMd 7vb2F5k892KTAsIPBlaO2 4Xp1nvAisCDYz tUMBxV9rdxube6oxpomtJ uFuZLAeQUc0WSr2LDUihV hdLaOrMWR2EfA0KFB5iOK rwA1byQwyrudo hC3qLgn+OFRbSGxzERy5B TwvdGQ+VTWzZDG4tVnfAU sqDUSvpI3oIZHaV7a8JlC yDrJ4OSrkN2Za AOIqdbhrXf56qX4eMoZeC jR3CLwuY5TmdpM1PPVykY HdUHnvHUX3V56co3Z0OCI aUNGbZPN4wUK4 qG0ejSktotnooADusCwlu vCzqDjlVFwgUOkjP444MQ RvcDsnPjUxIFllYXJzPC9 7AK78tFIzw2E9 pLJ0G6MoMYCcxxzqwkgpi KK3CHExZKZirL43qJFsJD bsJe2rb8K3e157CRXzTGS oiA41Ua7fcElv VQXloFKRtC5rhimeq8tpu zggVoZhDIEjKEc8HMo4AL XpuLdcUkRvIJI4EeL9DDU 5wTWcuT3ejLri awdvyW0uTfp+RmVtYWxlP M74QI85pHEeg5U1fNR3D2 PvHOBwwytbjtjvdUG9FUR zQJIsjG56xEDy XNpgOk5tt8J6b654RFCsM LIuiO35We4ccIzzWHEkaK JKnT0pwonan5yisygkWrN rCREtTNe0TCz2 SROzoAphLcFyHAD3VhF9Y HK1jGIawX2lmFaxndlbpS 9wOyc+HhCjaXVnjX6uFH4 0MB34J9KvKnjw dGFibGU+PHRhYmxlIHdpZ HRoPScxMDAlJyBzdHlsZT 9uKq9rZRMhIVPbuBvpqFZ kEtVdv4vsIYXm RDwwDE0lhXaaJ1PhdPR2G JBri4b3Bd93W15wT0KozR A+GZLdzNH7dGB4rC8qNhD aOaC5QDsrJ854 AnInbLZdIwhif0pdr8dpc Ec7NnMtFBOykoLksJvyIT E4s4YxRb88P45nXKyoVET oPSIyMCUiIHZh qFicnz3zvY5xPn2+PGNvb WA2aVF2wZ7hLbJpGbE4EY xfV490FoMxqFTcZwaoG16 vV7IniFN+PHRy Hht8SNZvcFxxDU8juTXqW KloDz6jROT8SsJiXhCbAO otF1QrFCDebjkcnmeipMK 5IMXmXYIbvM08 In0faPmtEa3vKCQhCUL9J XDskVVeC4CxiN8pQdTpXF AyUZLyN8DpxOFbECigK64 0PYyyXeO4ZHLw rlIfJ1LnGUPdiJwxNiN3r 2U1Jp0LrAbxkTUdLZ5oEt YfAFg3H1KqGys6DUKskYt nMT6ykOMtQFya Nl0fbMispAlaIL7xXBQbg wvjc163QpAvk0reBIYdeP FdZTmkTUO1A45ew2R0XSM nTQErXED3rSJ0 jB2qoNmwznhhcNMhfAyif jUbyKerRUwaCIjqK579IK JehUmyErOSBqg0S8OkSic 2WVMgsQwqNX5t zZLsPTphTk9vvZuyhBlmU J2dEJDlsunay986WeRkq1 jrTYShqRLdPJcgBPP9A67 ks8G5VZSzNZPh QYF6qMT0mO8dhMqykijlf GVmdDsgdmVydGljYWwtYW paO379OAGgbGqjWm6DYhv 6G8AeZsp8LSBr aPaxPH8tpCChOKhxAj5ud UmvvUuaJA2qRBIuugxri0 48FqQod4kmZNQbiNAtCHi dBBP9F65bz1D1 AHAjIJVnVLP2vYU3dR2bf GlnbjogbGVmdDsgdmVydG gmTKviQQnhN679BBOicXr nPlBheWVyOjwv dGQ+KS72lv88W0NjZhzhE uc8TCJsCOF9sHU4oH8hQE WhRMevj0P2cFR2H6IqnnM fcr2gf0goYRNe ZTog (more content not included)... Normal [facility] Insurance Correspondenceon 0 - Insurance Correspondence [id number]# 1.00CD:127 Normal [facility] Consent for Treatmenton 11-02 Consent for Treatment [id number]#1 .00CD:127 Normal [facility] PT - Orderson 11-17-2022 PT - Orders [id number]#1 .00CD:127 Normal [facility] CBC AUTO DIFFon 11-04-2022 BASO # 0.0 103/ul Normal 0.0-0.1 [facility] Comment on above: Performed By: #### C BC ####[facility] [address] [place] [address]Dr. Linnea Jane Basophils/100 WBC (Bld) 0.3 % Normal 0.2-2.0 [facility] Comment on above: Performed By: #### C BC ####[facility] [address] [place], [place] [address]Dr. Linnea Jane EO # 0.2 103/ul Normal 0.0-0.7 [facility] Comment on above: Performed By: #### C BC ####[facility] [address] [place], [place] [address]Dr. Linnea Jane Eosinophils/100 WBC (Bld) 3.3 % Normal 0.9-7.0 [facility] Comment on above: Performed By: #### C BC ####[facility] [address] [place] [address]Dr. Linnea Jane Erythrocyte distribution width (RBC) [Ratio] 13.7 % Normal 11.0-15.0 [facility] Comment on above: Performed By: #### C BC ####[facility] [address] [place], [place] [address]Dr. Linnea Jane Hematocrit (Bld) [Volume fraction] 37.1 % Normal 36.0-48.0 [facility] Comment on above: Performed By: #### C BC ####[facility] [address] [place] [id number]. Linnea Jane Hemoglobin (Bld) [Mass/Vol] 12.2 g/dL Normal 12.0-16.0 [facility] Comment on above: Performed By: #### C BC ####[facility] [address] [place] [address]Dr. Linnea Jane IG # 0.06 10e3/ul Critically high 0.00-0.03 [facility] Comment on above: Performed By: #### C BC ####[facility] [address] [place] [address]Dr. Linnea Jane IG % 1.0 % Critically high 0.0-0.5 [facility] Comment on above: Performed By: #### C BC ####[facility] [address] [place] [address]Dr. Linnea Jane LYMPH # 0.4 103/ul Critically low 1.2-3.8 [facility] Comment on above: Performed By: #### C BC ####[facility] [address] [place] [address]Dr. Linnea Jane Lymphocytes/100 WBC (Bld) 6.8 % Critically low 20.5-60.0 [facility] Comment on above: Performed By: #### C BC ####[facility] [address] [place] [address]Dr. Linnea Jane MANUAL DIFF REQ NO Normal [facility] Comment on above: Performed By: #### C BC ####[facility] [address] [place] [address]Dr. Linnea Jane MCH (RBC) [Entitic mass] 28.4 pg Normal 26.7-34.0 [facility] Comment on above: Performed By: #### C BC ####[facility] [address] [place], [place] [address]Dr. Linnea Jane MCHC (RBC) [Mass/Vol] 32.9 g/dL Normal 29.9-35.2 [facility] Comment on above: Performed By: #### C BC ####[facility] [address] [place] [id number]. Linnea Jane MCV (RBC) [Entitic vol] 86.5 fL Normal 81.0-99.0 [facility] Comment on above: Performed By: #### C BC ####[facility] [address] [place] [id number]. Linnea Jane MONO # 0.7 103/ul Normal 0.3-0.8 [facility] Comment on above: Performed By: #### C BC ####[facility] [address] [place] [address]Dr. Linnea Jane Monocytes/100 WBC (Bld) 11.3 % Normal 1.7-12.0 [facility] Comment on above: Performed By: #### C BC ####[facility] [address] [place], [place] [address]Dr. Linnea Jane NEUT # 4.5 103/ul Normal 1.4-6.5 [facility] Comment on above: Performed By: #### C BC ####[facility] [address] [place] [address]Dr. Linnea Jane Neutrophils/100 WBC (Bld) 77.3 % Critically high 43.0-75.0 [facility] Comment on above: Performed By: #### C BC ####[facility] [address] [place], [place] [address]Dr. Linnea Jane Platelet mean volume (Bld) [Entitic vol] 9.0 fL Critically low 9.5-13.5 [facility] Comment on above: Performed By: #### C BC ####[facility] [address] [place] [id number]. Linnea Jane PLT 429 103/ul Normal 150-450 [facility] Comment on above: Performed By: #### C BC ####[facility] [address] [place], [place] [address]Dr. Linnea Jane RBC 4.29 106/ul Normal 4.20-5.40 [facility] Comment on above: Performed By: #### C BC ####[facility] [address] [place], [place] [address]Dr. Linnea Jane WBC 5.8 103/ul Normal 4.0-11.0 [facility] Comment on above: Performed By: #### C BC ####[facility] [address] [place] [address]Dr. Linnea Jane FREE T3on 11-04-2022 FREE T3 2.58 pg/mlL Normal 2.18-3.98 [facility] Comment on above: Performed By: #### C MP, FT3, LIPID, T4, TSH #### [facility] [address] [address] [address] Linnea Jane GLYCOHEMOGLOBIN A1Con 2022 ADA RECOMMENDATION SEE BELOW Normal [facility] Comment on above: Result Comment: ADA RECOMMENDED LIMIT 4.0 - 6.0 ADA THERAPEUTIC TARGET < 7.0 ACTION SUGGESTED > 7.0 Performed By: #### A 1C #### [facility] [address] [address] [address] Linnea Jane Glucose [Mass/Vol] 151 mg/dL Normal [facility] Comment on above: Performed By: #### A 1C #### [facility] [address] [address] [address] Linnea Jane HbA1c (Bld) [Mass fraction] 6.9 % Critically high 4.5-6.2 [facility] Comment on above: Performed By: #### A 1C #### [facility] [address] [address] [address] Linnea Jane LIPID PROFILEon 11-04-2022 CHOL-HDL RATIO NORM SEE BELOW Normal [facility] Comment on above: Result Comment: 3.3 - 4.4 LOW RISK 4.4 - 7.1 AVERAGE RISK 7.1 - 11.0 MODERATE RISK >11.0 HIGH RISK Performed By: #### C MP, FT3, LIPID, T4, TSH #### [facility] [address] [address] [address] Linnea Jane Cholesterol [Mass/Vol] 174 mg/dL Normal <=200 [facility] Comment on above: Performed By: #### C MP, FT3, LIPID, T4, TSH #### [facility] [address] [address] [address] Linnea Jane Cholesterol in HDL [Mass/Vol] 74 mg/dL Critically high 40-60 [facility] Comment on above: Performed By: #### C MP, FT3, LIPID, T4, TSH #### [facility] [address] [address] [address] Linnea Jane Cholesterol in LDL [Mass/Vol] 82.2 mg/dL Normal [facility] Comment on above: Performed By: #### C MP, FT3, LIPID, T4, TSH #### [facility] [address] [address] [address] Linnea Jane Cholesterol.total/Cho lesterol in HDL [Mass ratio] 2.4 {ratio} Normal [facility] Comment on above: Performed By: #### C MP, FT3, LIPID, T4, TSH #### [facility] [address] [place] [address] Dr. Linnea Jane HDL NORMAL > or = 60 mg/dl - LO W CARDIOVASCULAR RISK <40 mg/dl - HIGH CARDIOVASCULAR RISK Normal [facility] Comment on above: Performed By: #### C MP, FT3, LIPID, T4, TSH #### [facility] [address] [place] [address] Dr. Linnea Jane LDL CALC NORMAL SEE BELOW Normal [facility] Comment on above: Result Comment: <100 mg/dl OPTIMAL 100 - 129 mg/dl NEAR OR ABOVE OPTIMAL 130 - 159 mg/dl BORDERLINE HIGH 160 - 189 mg/dl HIGH >190 mg/dl VERY HIGH Performed By: #### C MP, FT3, LIPID, T4, TSH #### [facility] [address] [place] [address] Dr. Linnea Jane Triglyceride [Mass/Vol] 89 mg/dL Normal <=150 [facility] Comment on above: Performed By: #### C MP, FT3, LIPID, T4, TSH #### [facility] [address] [place] [address] Dr. Linnea Jane VLDL CALC 17.8 mg/dL Normal [facility] Comment on above: Performed By: #### C MP, FT3, LIPID, T4, TSH #### [facility] [address] [place] [address] Dr. Linnea Jane PROF 14(COMP METB)on 023 Albumin [Mass/Vol] 3.2 g/dL Critically low 3.4-5.0 Th e [facility] Comment on above: Performed By: #### C MP, FT3, LIPID, T4, TSH #### [facility] [address] [place] [address] Dr. Linnea Jane Albumin/Globulin [Mass ratio] 1.0 {ratio} Normal [facility] Comment on above: Performed By: #### C MP, FT3, LIPID, T4, TSH #### [facility] [address] [place] [address] Dr. Linnea Jane ALP [Catalytic activity/Vol] 77 U/L Normal 46-116 [facility] Comment on above: Performed By: #### C MP, FT3, LIPID, T4, TSH #### [facility] [address] [place] [address] Dr. Linnea Jane ALT [Catalytic activity/Vol] 36 U/L Normal 14-59 [facility] Comment on above: Performed By: #### C MP, FT3, LIPID, T4, TSH #### [facility] [address] [place] [address] Dr. Linnea Jane Anion gap [Moles/Vol] 9.7 mmol/L Normal [facility] Comment on above: Performed By: #### C MP, FT3, LIPID, T4, TSH #### [facility] [address] [place] [address] Dr. Linnea Jane AST [Catalytic activity/Vol] 20 U/L Normal 15-37 [facility] Comment on above: Performed By: #### C MP, FT3, LIPID, T4, TSH #### [facility] [address] [place] [address] Dr. Linnea Jane Bilirubin [Mass/Vol] 0.5 mg/dL Normal 0.2-1.0 [facility] Comment on above: Performed By: #### C MP, FT3, LIPID, T4, TSH #### [facility] [address] [place] [address] Dr. Linnea Jane Calcium [Mass/Vol] 9.3 mg/dL Normal 8.5-10.1 [facility] Comment on above: Performed By: #### C MP, FT3, LIPID, T4, TSH #### [facility] [address] [place] [address] Dr. Linnea Jane Chloride [Moles/Vol] 104 mmol/L Normal 98-107 [facility] Comment on above: Performed By: #### C MP, FT3, LIPID, T4, TSH #### [facility] [address] [place] [address] Dr. Linnea Jane CO2 [Moles/Vol] 31.7 mmol/L Normal 21.0-32.0 [facility] Comment on above: Performed By: #### C MP, FT3, LIPID, T4, TSH #### [facility] [address] [place] [address] Dr. Linnea Jane Creatinine [Mass/Vol] 0.63 mg/dL Normal 0.55-1.02 [facility] Comment on above: Performed By: #### C MP, FT3, LIPID, T4, TSH #### [facility] [address] [place] [address] Dr. Linnea Jane EGFR-AF [place] ISLANDER >60 Normal >=60 [facility] Comment on above: Performed By: #### C MP, FT3, LIPID, T4, TSH #### [facility] [address] [place] [address] Dr. Linnea Jane EGFR-NON AF [place]LANDER >60 Normal >=60 [facility] Comment on above: Performed By: #### C MP, FT3, LIPID, T4, TSH #### [facility] [address] [place] [address] Dr. Linnea Jane Globulin (S) [Mass/Vol] 3.1 g/dL Normal [facility] Comment on above: Performed By: #### C MP, FT3, LIPID, T4, TSH #### [facility] [address] [place] [address] Dr. Linnea Jane Glucose [Mass/Vol] 131 mg/dL Critically high 74-106 [facility] Comment on above: Performed By: #### C MP, FT3, LIPID, T4, TSH #### [facility] [address] [place] [address] Dr. Linnea Jane Potassium [Moles/Vol] 3.4 mmol/L Critically low 3.5-5.1 [facility] Comment on above: Performed By: #### C MP, FT3, LIPID, T4, TSH #### [facility] [address] [place] [address] Dr. Linnea Jane Protein [Mass/Vol] 6.3 g/dL Critically low 6.4-8.2 [facility] Comment on above: Performed By: #### C MP, FT3, LIPID, T4, TSH #### [facility] [address] [place] [address] Dr. Linnea Jane Sodium [Moles/Vol] 142 mmol/L Normal 136-145 [facility] Comment on above: Performed By: #### C MP, FT3, LIPID, T4, TSH #### [facility] [address] [place] [address] Dr. Linnea Jane Urea nitrogen [Mass/Vol] 22.0 mg/dL Critically high 7.0-18.0 [facility] Comment on above: Performed By: #### C MP, FT3, LIPID, T4, TSH #### [facility] [address] [place] [address] Dr. Linnea Jane Urea nitrogen/Creatinine [Mass ratio] 34.9 mg/mg Normal [facility] Comment on above: Performed By: #### C MP, FT3, LIPID, T4, TSH #### [facility] [address] [place] [address] Dr. Linnea Jane T4on 11-04-2022 T4 [Mass/Vol] 8.50 ug/dL Normal 4.80-13.90 [facility] Comment on above: Performed By: #### C MP, FT3, LIPID, T4, TSH #### [facility] [address] [place] [address] Dr. Linnea Jane TSHon 11-04-2022 TSH 0.590 uIU/mL Normal 0.358-3.740 [facility] Comment on above: Performed By: #### C MP, FT3, LIPID, T4, TSH #### [facility] [address] [place] [address] Dr. Linnea Jane VITAMIN D 25 OHon 11-04-2022 VIT D 25-OH 140.4 ng/mL Normal [facility] Comment on above: Performed By: #### V ITAD #### [facility] [address] [place] [address] Dr. Linnea Jane VIT D RANGES SEE BELOW Normal [facility] Comment on above: Result Comment: <20 ng/mL Vit D deficient 20 - <30 ng/mL Vit D insufficient 30 - 100 ng/mL Vit D sufficient >100 ng/mL Potential Toxicity Performed By: #### V ITAD #### [facility] [address] [place] [address] Dr. Linnea Jane HEPATITIS B CORE, IgMon 12-0 Hep B Core Ab, IgM Negative Normal Negative [facility] Comment on above: Performed By: #### H EPBCOR #### [facility] [address] [place] [address] Dr. Linnea Jane MRI BRAIN WO W [...] by: NEGRO BLACKMON Date: 2022-09-17 07:22 Normal [facility] XR FOREIGN BODY EYEon 2021 XR FOREIGN BODY EYE EXAMINATION: XR FOREIGN BODY EYE HISTORY: Foreign body in eye ; pre-MRI COMPARISON: No relevant comparison available. FINDINGS: ORBITS: Negative for a metallic foreign body. OTHER: Negative. IMPRESSION: 1. No metallic foreign body within the orbits. Electronically authenticated by: NEGRO BLACKMON Date: 2022-09-16 15:08 Normal [facility] Encounters Encounter Date Encounter Type Care Provider Facility Start: 09-21-2024 End: 09-22-2024 Refill Marshal Padilla MD Work Phone: [facility] Comment on above: Multiple sclerosis ( CMS/HCC) Start: 08-29-2024 End: 08-29-2024 Orders Only Federica Romano [employer] Work Phone: [phone] Comment on above: Cerebellar infarctio n ([facility]/HCC) (Primary Dx); Other fatigue; Memory loss Start: 02-17-2024 End: 02-17-2024 ambulatory MARSHAL PADILLA Not Available Start: 11-16-2023 End: 11-16-2023 ambulatory MARSHAL PADILLA Not Available Start: 11-17-2022 Encounter for genera l adult medical examination without abnormal findings DR KRISHAN SANABRIA [facility] Start: 11-17-2022 End: 02-16-2023 ambulatory Marshal Padilla Facility:[facility] Start: 11-04-2022 End: 11-05-[address] KRISHAN SANABRIA Facility: Start: 11-04-2022 End: 11-05-2022 Encounter for general adult medical examination without abnormal findings DR KRISHAN SANABRIA Facility: Start: 10-09-2022 End: 10-10-[address] DOCTOR WINKLER Facility:[facility] Start: 09-16-2022 End: 09-17-[address] DOCTOR WINKLER Facility:[facility] Start: 12-31-[address] KRISHAN SANABRIA Facility :[facility] Start: 06-26-2016 End: 06-27-2016 Ambulatory LELE BAZAN Facility:[facility] Plan of Treatment Date Care Activity Detail Author Start: 11-23-2024 End: 11-23-2024 Patient encounter procedure 11/23/2024 2:40 PM EST Office Visit [facility] [address] [place] [address] Marshal Padilla MD [id number] [facility] [address] [place] [address] [place] [id number] [facility] Start: 07-03-2024 Influenza vaccination Influenza Vacc ine (#1) [facility] Start: 2011 Screening for malign ant neoplasm of breast Mammogram [facility] Start: 2001 Screening for malign ant neoplasm of cervix [facility] Start: 1992 Screening for malign ant neoplasm of cervix Pap Smear [facility] Healthcare Start: 1970 Screening for malign ant neoplasm of colon [facility] Immunizations Immunization Date Immunization Notes Care Provider Fa cility 09-03-2022 influenza virus vacc ine, unspecified formulation Federica Romano PUZZLE ASSEM[employer]ER Work Phone: [facility] Healthcare Payers Date Payer Category Payer Private Health Insurance [employer] [id number] 2019 Medicaid MEDICAID [place] [id number] 1970 Unknown [id number] 593 1971 Unknown [id number]. 593 1971 Unknown [id number]. 593 1971 Unknown [id number]. 593 1971 Unknown [id number] [id number]. 727 1971 Unknown [id number] [id number]. 1259 1970 Unknown [id number]. 1259 1958 Medicaid [id number] 1958 Medicare [id number] 1958 Self-pay Medicare [id number] Social History Date Type Detail Facility Start: 04-30-2023 Tobacco smoking stat [facility] Never smoked tobacco [facility] Start: 04-30-2023 [...] section and content) DATE CREATED AUTHOR 04/28/2018 [facility] DATE CREATED AUTHOR AUTHOR'S ORGANIZ ATION 11/18/2022 [facility] DATE CREATED AUTHOR AUTHOR'S ORGANIZ ATION 02/16/2023 [facility] DATE CREATED AUTHOR AUTHOR'S ORGANIZ ATION 02/18/2024 [facility] EPIC Care Teams (unrecognized sec tion and content) Inoculator Relationship Specialty Start Date End Date Krishan Sanabria MD [address] [place] [address] PCP - General Family Medicine 06/15/24 Inoculator Relationship Specialty Start Date End Date Krishan Sanabria MD [address] [place] [address] PCP - General Family Medicine 06/15/24 Reason [...] BE BASED ON THE PRIMARY CLINICAL RECORDS. [employer] [facility]. provides no warranty or guarantee of the accuracy or completeness of information in this document.
[2024-10-06] MEDS: METRONIDAZOLE/SODIUM CHLORIDE 500 MG/100 ML PREMIX 100 MG IV ×2 (17:31→22:30)
--- NOTE | 2024-10-06 18:07 | P.HP_ITS ---
HPI H&P: HPI History of Present Illness Chief complaint: constipated, dry heaving Colitis and leukocytosis Narrative: Patient presented to the emergency room with increasing abdominal pain. Found to have significant leukocytosis and CT scan consistent with acute colitis. Patient denies any unusual foods lately does have chills though. I saw patient up on the medical surgical floor, resting comfortably in bed with mild to moderate pain Opioid HPI Opioid Management Most Recent Pain and Opioid Data: Last ORT Total Score 1 10/06/24 16:39 10/06/24 Last ORT Risk Category Low Risk 10/06/24 16:39 10/06/24 Review of Systems ROS Status of ROS 10 or more systems reviewed and unremark able except as noted in history and below PFSH [facility] Medical History (Updated 10/06/24 @ 15:52 by Bakari Forman MD) Cellulitis ?L03.90 - Cellulitis, unspecified (ICD-10) Encounter for cholecystectomy ?Z76.89 - Persons encountering health services in other specified circumstances (ICD-10) Multiple sclerosis ?G35 - Multiple sclerosis (ICD-10) HTN (hypertension) ?I10 - Essential (primary) hypertension (ICD-10) Surgical History (Updated 03/22/24 @ 14:55 by Ayesha Moon) H/O hysterectomy for benign disease ?Z90.710 - Acquired absence of both cervix and uterus (ICD-10) Social History (Updated 03/22/24 @ 14:56 by Ayesha Moon) Within the past year, how often did you have a drink containing alcohol: never Score interpretation: A score less than 3 is consistent with normal alcohol consumption. Smoking status: Never smoker Non-prescribed substance use: denies use Previous occupational history: disabled Highest level of school completed/degree received: some college, no degree Little interest or pleasure in doing things: not at all Feeling down, depressed, or hopeless: not at all Meds Home Medications and Allergies Home Medications ?Medication ?Instructions ?Recorded ?Confirmed ?Type buspirone 7.5 mg tablet 7.5 mg PO TID 03/22/24 10/06/24 History carvedilol 12.5 mg tablet 12.5 mg PO TID 03/22/24 10/06/24 History clonidine 0.3 mg/24 hr weekly 1 patch topical QWEEK 03/22/24 10/06/24 History transdermal patch fesoterodine 4 mg tablet,extended 8 mg PO DAILY 03/22/24 10/06/24 History release 24 hr potassium chloride 10 mEq 10 meq PO BID 03/22/24 10/06/24 History tablet,extended release rosuvastatin 5 mg tablet 5 mg PO QPM 03/22/24 10/06/24 History tizanidine 4 mg tablet 8 mg PO TID 03/22/24 10/06/24 History Allergies Allergy/AdvReac Type Severity Reaction Status Date / Time Penicillins Allergy Severe Verified 03/22/24 10:18 Sulfa (Sulfonamide Allergy Severe Hives Verified 03/22/24 10:18 Antibiotics) Exam Constitutional Vital Signs, click to edit/add: Last Vital Signs Temp 98.9 F 10/06/24 16:39 Pulse 120 H 10/06/24 16:39 Resp 18 10/06/24 16:39 BP 150/104 H 10/06/24 16:39 Pulse Ox 98 10/06/24 16:39 O2 Del Method Room Air 10/06/24 16:39 Documenting provider has reviewed patient's vital signs: yes Common normals: apparent distress (Mild to moderate painful distress) Chest Common normals: inspection of chest normal and palpation of chest normal Respiratory Common normals: normal respiratory effort, no retractions and no use of accessory muscles Cardio Common normals: regular rate and regular rhythm GI Common normals: Normal to inspection, nondistended, normoactive bowel sounds present and soft to palpation; tender (Positive rebound tenderness) Results Labs Labs: Short CBC 10/06/24 Range/Units 13:58 WBC 23.4 H (4.0-11.0) 10^3/uL Hgb 15.0 (12.0-16.0) g/dL Hct 43.6 (36.0-48.0) % Plt Count 402 (150-450) 10^3/uL BMP 10/06/24 13:58 Sodium 142 Potassium 3.9 Chloride 104 Carbon Dioxide 25.9 BUN 24.0 H Creatinine 0.94 Glucose 179 H Calcium 10.0 Liver Function 10/06/24 Range/Units 13:58 Total Bilirubin 0.6 (0.2-1.0) mg/dL Direct Bilirubin 0.1 (0.0-0.2) mg/dL AST 22 (15-37) U/L ALT 27 (14-59) U/L Alkaline Phosphatase 121 H (46-116) U/L Albumin 3.7 (3.4-5.0) g/dL Assessment and Plan Assessment and Plan (1) Leukocytosis: (2) Colitis: Plan Admission findings: Uncontrolled hypertension, sinus tachycardia, leukocytosis, hyperglycemia secondary to acute colitis Acute colitis-check stool studies, IV antibiotics, steroids. Blood cultures x 2. Check lactate. Tachycardia likely secondary to dehydration-IV fluid bolus Uncontrolled hypertension-IV hydralazine as needed, maintain home medications Hyperglycemia-possibly just diet related but this may get worse with being on steroids for the above outlined colitis, insulin sliding scale CODE STATUS-patient had long discussion and she would prefer to be DNR-cc-a Generalized anxiety disorder-continue with home medications Back pain-continue with home medications Hypercholesterolemia continue with home medications Admission status: Patient does have mild rebound tenderness and significant leukocytosis but there is a 50% chance she will go home tomorrow morning's will start patient off as observation status. If she fails to improve during the observational time. Will change her to inpatient status tomorrow.
[2024-10-06 18:27] LABS: C Reactive Protein <0.50 mg/dL (<=0.50)
[2024-10-06] MEDS: 0.9 % SODIUM CHLORIDE 1,000 ML 1000 ML IV (18:28)
[2024-10-06 18:31] LABS: Erythrocyte Sedimentation Rate 18 mm/hr (<=30)
[2024-10-06 18:40] LABS: Lactate/Lactic Acid 2.2 mmol/L (0.4-2.0)
--- NOTE | 2024-10-06 19:30 | PC.NURSE ---
attempted several times to get blood for lactic acid. Able to get flashes and very small amount of blood. DENTAL INSURANCE COORDINATOR contacted and repeat lactic order placed for tomorrow am with morning draws.
[2024-10-06 19:57] LABS: Glucometer 139 mg/dL (74-106)
[2024-10-06] MEDS: LACTATED RINGER'S SOLUTION 1,000 ML 100 ML IV (22:28)
[2024-10-06] MEDS: METHYLPREDNISOLONE SOD SUCC PF 125 MG/2 ML VIAL IVP (22:29)
[2024-10-06] MEDS: ATORVASTATIN CALCIUM 20 MG TABLET PO (22:31)
[2024-10-06] MEDS: POTASSIUM CHLORIDE 10 MEQ ER TABLET PO (22:31)
[2024-10-06] MEDS: BUSPIRONE HCL 15 MG TABLET 7.5 MG PO (22:32)
[2024-10-06] MEDS: HYOSCYAMINE SULFATE 0.125 MG TAB.SUBL 0.25 MG SL (22:32)
[2024-10-06] MEDS: TIZANIDINE HCL 4 MG TABLET 8 MG PO (22:33)
[2024-10-06] MEDS: PANTOPRAZOLE SODIUM 40 MG VIAL IV (22:57)
[2024-10-07] VITALS (8 sets, daily range): BP systolic 85–146; BP diastolic 52–89; PULSE 88–103; TEMP 36.4–36.8; O2SAT 94–98; BMI 21.0
[2024-10-07] MEDS: METRONIDAZOLE/SODIUM CHLORIDE 500 MG/100 ML PREMIX 100 MG IV ×4 (03:15→21:32)
[2024-10-07] MEDS: METHYLPREDNISOLONE SOD SUCC PF 125 MG/2 ML VIAL IVP ×4 (03:15→21:19)
[2024-10-07] MEDS: CIPROFLOXACIN IN 5 % DEXTROSE 400 MG/200 ML PREMIX 200 MG IV ×2 (04:32→15:33)
[2024-10-07 05:23] LABS: Hematocrit 37.5 % (36.0-48.0); Hemoglobin 12.3 g/dL (12.0-16.0); Mean Corpuscular HGB Conc 32.8 g/dL (29.9-35.2); Mean Corpuscular Volume 85.4 fL (81.0-99.0); Platelet Count 339 10^3/uL (150-450); Red Blood Count 4.39 10^6/uL (4.20-5.40); Red Cell Distribution Width 12.2 % (11.0-15.0); White Blood Count 16.3 10^3/uL (4.0-11.0)
[2024-10-07 05:35] LABS: Erythrocyte Sedimentation Rate 16 mm/hr (<=30)
[2024-10-07] MEDS: TIZANIDINE HCL 4 MG TABLET 8 MG PO ×3 (05:41→21:20)
[2024-10-07] MEDS: BUSPIRONE HCL 15 MG TABLET 7.5 MG PO ×3 (05:41→21:21)
[2024-10-07] MEDS: LACTATED RINGER'S SOLUTION 1,000 ML 100 ML IV ×2 (05:41→17:18)
[2024-10-07 05:47] LABS: Alanine Aminotransferase 28 U/L (14-59); Albumin Level 2.8 g/dL (3.4-5.0); Alkaline Phosphatase 88 U/L (46-116); Anion Gap 12.3; Aspartate Amino Transferase 20 U/L (15-37); BUN Creatinine Ratio 18.3; Bilirubin Total 0.4 mg/dL (0.2-1.0); C Reactive Protein 2.38 mg/dL (<=0.50); Calcium 8.7 mg/dL (8.5-10.1); Chloride 107 mmol/L (98-107); Estimated GFR (African America >60 (>=60 mL/min/1.73m^2); Estimated GFR (Non-African Ame >60 (>=60 mL/min/1.73m^2); Globulin 2.8 g/dL; Glucose 256 mg/dL (74-106); Potassium 3.3 mmol/L (3.5-5.1); Sodium 141 mmol/L (136-145); Total Protein 5.6 g/dL (6.4-8.2)
[2024-10-07 05:52] LABS: Lymphocytes Absolute Manual 0.65 10^3/uL (1.20-3.80); Segmented Neut Absolute Manual 15.64 10^3/uL (1.4-6.5)
[2024-10-07 06:03] LABS: Lactate/Lactic Acid 2.3 mmol/L (0.4-2.0)
--- NOTE | 2024-10-07 07:53 | P.PN_ITS ---
Progress Note: Subjective Subjective Interval history: Patient feels somewhat better today. Still with significant abdominal pain. Difficulty eating secondary to the pain is eating pretty much anything made it worse last night. Will see how morning goes Exam Constitutional Vital Signs, click to edit/add: Last Vital Signs Temp 97.8 F 10/07/24 03:59 Pulse 96 H 10/07/24 03:59 Resp 18 10/07/24 03:59 BP 92/63 10/07/24 03:59 Pulse Ox 98 10/07/24 04:32 O2 Del Method Room Air 10/07/24 04:32 Documenting provider has reviewed patient's vital signs: yes Common normals: apparent distress (Mild to moderate painful distress) Chest Common normals: inspection of chest normal and palpation of chest normal Respiratory Common normals: normal respiratory effort, no retractions and no use of accessory muscles Cardio Common normals: regular rate and regular rhythm GI Common normals: Normal to inspection, nondistended, normoactive bowel sounds present and soft to palpation; tender (Positive rebound tenderness persisting, abdomen somewhat softer) Progress Note: Objective Labs Labs: Short CBC 10/06/24 10/07/24 Range/Units 13:58 04:29 WBC 23.4 H 16.3 H (4.0-11.0) 10^3/uL Hgb 15.0 12.3 (12.0-16.0) g/dL Hct 43.6 37.5 (36.0-48.0) % Plt Count 402 339 (150-450) 10^3/uL BMP 10/06/24 10/07/24 13:58 04:29 Sodium 142 141 Potassium 3.9 3.3 L Chloride 104 107 Carbon Dioxide 25.9 25.0 BUN 24.0 H 17.0 Creatinine 0.94 0.93 Glucose 179 H 256 H Calcium 10.0 8.7 Liver Function 10/06/24 10/07/24 Range/Units 13:58 04:29 Total Bilirubin 0.6 0.4 (0.2-1.0) mg/dL Direct Bilirubin 0.1 (0.0-0.2) mg/dL AST 22 20 (15-37) U/L ALT 27 28 (14-59) U/L Alkaline Phosphatase 121 H 88 (46-116) U/L Albumin 3.7 2.8 L (3.4-5.0) g/dL Progress Note: A&P Assessment and Plan (1) Leukocytosis: (2) Colitis: Plan Admission findings: Uncontrolled hypertension, sinus tachycardia, leukocytosis, lactic acidosis hyperglycemia secondary to acute colitis resulting in severe sepsis (tachycardia, leukocytosis, lactic acidosis, source of infection colitis) Acute colitis-lactate positive, lactic acidosis persisting after bolus, will repeat bolus again this morning. Continue with current antibiotics his white blood cell count is somewhat improved, significant elevated CRP, monitor daily Elevated BUN on admission consistent with dehydration-improved this morning. Dehydration secondary to colitis Tachycardia likely secondary to dehydration-improved Uncontrolled hypertension-now with significant hypotension secondary to the severe sepsis-fluid bolus this morning, holding blood pressure medications Hyperglycemia-possibly just diet related but this may get worse with being on steroids for the above outlined colitis, insulin sliding scale CODE STATUS-patient had long discussion and she would prefer to be DNR-cc-a Generalized anxiety disorder-continue with home medications Back pain-continue with home medications Hypokalemia-supplement Hypercholesterolemia continue with home medications Admission status: Patient not improved overnight physically. White blood cell count slightly better. Lactic acidosis consistent with severe sepsis. Hypotensive today. Medically necessary treatment will span 2 midnights. Inpatient status. ?
[2024-10-07] MEDS: HYOSCYAMINE SULFATE 0.125 MG TAB.SUBL 0.25 MG SL ×3 (08:06→21:20)
[2024-10-07] MEDS: 0.9 % SODIUM CHLORIDE 1,000 ML 1000 ML IV (08:07)
[2024-10-07] MEDS: POTASSIUM CHLORIDE 10 MEQ ER TABLET 20 MEQ PO ×2 (09:46→21:20)
[2024-10-07] MEDS: SOLIFENACIN SUCCINATE 10 MG TABLET PO (09:47)
--- NOTE | 2024-10-07 10:29 | CM.NOTE ---
Important Message From Medicare discussed with pt, pt verbalizes understanding and signs paper. Original given to pt and copy placed on pt's chart.
[2024-10-07 11:33] LABS: Glucometer 222 mg/dL (74-106)
[2024-10-07] MEDS: CARVEDILOL 12.5 MG TABLET PO ×2 (13:49→21:20)
[2024-10-07] MEDS: PANTOPRAZOLE SODIUM 40 MG VIAL IV (21:19)
[2024-10-07] MEDS: ATORVASTATIN CALCIUM 20 MG TABLET PO (21:20)
[2024-10-07 21:26] LABS: Glucometer 259 mg/dL (74-106)
[2024-10-08] MEDS: METHYLPREDNISOLONE SOD SUCC PF 125 MG/2 ML VIAL IVP ×2 (02:59→08:51)
[2024-10-08] MEDS: METRONIDAZOLE/SODIUM CHLORIDE 500 MG/100 ML PREMIX 100 MG IV ×2 (03:02→08:51)
[2024-10-08] MEDS: LACTATED RINGER'S SOLUTION 1,000 ML 100 ML IV (03:04)
[2024-10-08] MEDS: CIPROFLOXACIN IN 5 % DEXTROSE 400 MG/200 ML PREMIX 200 MG IV (04:11)
[2024-10-08 04:50] VITALS: O2SAT 97
[2024-10-08 05:00] VITALS: BP 152/89; PULSE 80; TEMP 36.6; O2SAT 97
[2024-10-08] MEDS: BUSPIRONE HCL 15 MG TABLET 7.5 MG PO (05:08)
[2024-10-08] MEDS: TIZANIDINE HCL 4 MG TABLET 8 MG PO (05:08)
[2024-10-08] MEDS: CARVEDILOL 12.5 MG TABLET PO (05:09)
[2024-10-08 06:40] LABS: Basophils Percent Auto 0.1 % (0.2-2.0); Hematocrit 36.1 % (36.0-48.0); Hemoglobin 12.2 g/dL (12.0-16.0); Immature Granulocytes Pct Auto 0.5 % (0.0-0.5); Lymphocytes Absolute Auto 0.5 10^3/uL (1.2-3.8); Lymphocytes Percent Auto 2.2 % (20.5-60.0); Mean Corpuscular HGB Conc 33.8 g/dL (29.9-35.2); Mean Corpuscular Hemoglobin 28.6 pg (26.7-34.0); Mean Corpuscular Volume 84.5 fL (81.0-99.0); Mean Platelet Volume 10.2 fL (9.5-13.5); Monocytes Absolute Auto 0.5 10^3/uL (0.3-0.8); Monocytes Percent Auto 2.2 % (1.7-12.0); Neutrophils Absolute Auto 20.2 10^3/uL (1.4-6.5); Platelet Count 342 10^3/uL (150-450); Red Blood Count 4.27 10^6/uL (4.20-5.40); Red Cell Distribution Width 12.5 % (11.0-15.0); White Blood Count 21.2 10^3/uL (4.0-11.0)
[2024-10-08 07:01] LABS: Alanine Aminotransferase 24 U/L (14-59); Albumin Globulin Ratio 0.9; Albumin Level 2.6 g/dL (3.4-5.0); Alkaline Phosphatase 86 U/L (46-116); Anion Gap 11.8; Aspartate Amino Transferase 17 U/L (15-37); BUN Creatinine Ratio 11.9; Bilirubin Total 0.3 mg/dL (0.2-1.0); C Reactive Protein 1.25 mg/dL (<=0.50); Calcium 8.9 mg/dL (8.5-10.1); Carbon Dioxide 25.8 mmol/L (21.0-32.0); Chloride 108 mmol/L (98-107); Estimated GFR (African America >60 (>=60 mL/min/1.73m^2); Estimated GFR (Non-African Ame >60 (>=60 mL/min/1.73m^2); Globulin 2.8 g/dL; Glucose 262 mg/dL (74-106); Potassium 3.6 mmol/L (3.5-5.1); Sodium 142 mmol/L (136-145); Total Protein 5.4 g/dL (6.4-8.2)
[2024-10-08 07:48] LABS: Glucometer 237 mg/dL (74-106)
[2024-10-08 08:30] VITALS: BP 162/63; PULSE 61; TEMP 36.4; O2SAT 97
[2024-10-08] MEDS: HYOSCYAMINE SULFATE 0.125 MG TAB.SUBL 0.25 MG SL (08:50)
[2024-10-08] MEDS: POTASSIUM CHLORIDE 10 MEQ ER TABLET 20 MEQ PO (08:50)
[2024-10-08] MEDS: SOLIFENACIN SUCCINATE 10 MG TABLET PO (08:51)
--- NOTE | 2024-10-08 10:13 | P.DS_ITS ---
DS: Providers Provider Date of admission: 10/07/24 07:50 Primary care physician: Chava Burciaga MD DS: Diagnosis Discharge Diagnosis (1) Leukocytosis: (2) Colitis: Plan Admission findings: Uncontrolled hypertension, sinus tachycardia, leukocytosis, lactic acidosis hyperglycemia secondary to acute colitis resulting in severe sepsis (tachycardia, leukocytosis, lactic acidosis, source of infection colitis) Acute colitis-lactate positive, lactic acidosis persisting after bolus, will repeat bolus again this morning. Continue with current antibiotics his white blood cell count is somewhat improved, significant elevated CRP, monitor daily Elevated BUN on admission consistent with dehydration-improved this morning. Dehydration secondary to colitis Tachycardia likely secondary to dehydration-improved Uncontrolled hypertension-now with significant hypotension secondary to the severe sepsis-fluid bolus this morning, holding blood pressure medications Hyperglycemia-possibly just diet related but this may get worse with being on steroids for the above outlined colitis, insulin sliding scale CODE STATUS-patient had long discussion and she would prefer to be DNR-cc-a Generalized anxiety disorder-continue with home medications Back pain-continue with home medications Hypokalemia-supplement Hypercholesterolemia continue with home medications Admission status: Patient not improved overnight physically. White blood cell count slightly better. Lactic acidosis consistent with severe sepsis. Hypotensive today. Medically necessary treatment will span 2 midnights. Inpatient status. ? ? DS: Summary Hospital Course Hospital Course: Patient admitted through the emergency room with increasing abdominal pain. CT scan confirms the active colitis. She has already been treated for this as an outpatient significant leukocytosis on admission meeting criteria for sepsis. She also had acute abdominal findings with rebound tenderness on initial exam. He was placed on IV antibiotics, IV steroids, she was improved yesterday but white blood cell count was still high and the rebound tenderness was persisting. She feels much better today. She finally was able to eat some breakfast this morning. Her white blood cell count is higher but that may be steroid-induced. She is having no fevers. With her feeling overall better. Will discharge patient home in improving condition. Medications see list. Follow-up with me in the office early next week. Time Spent with Patient Time attestation: Total time spent providing and/or coordinating discharge services: Exam Constitutional Vital Signs, click to edit/add: Last Vital Signs Temp 97.6 F 10/08/24 08:30 Pulse 61 10/08/24 08:30 Resp 16 10/08/24 08:30 BP 162/63 H 10/08/24 08:30 Pulse Ox 97 10/08/24 08:30 O2 Del Method Room Air 10/08/24 08:30 DS: Data Data Completed and Pending Labs on day of discharge: Labs from last 24 hours 10/08/24 10/08/24 10/07/24 07:46 05:49 21:25 WBC 21.2 H RBC 4.27 Hgb 12.2 Hct 36.1 MCV 84.5 MCH 28.6 MCHC 33.8 RDW 12.5 Plt Count 342 MPV 10.2 Neut % (Auto) 95.0 H Lymph % (Auto) 2.2 L [place] % (Auto) 2.2 Eos % (Auto) 0.0 L Baso % (Auto) 0.1 L Neut # (Auto) 20.2 H Lymph # (Auto) 0.5 L [place] # (Auto) 0.5 Eos # (Auto) 0.0 Baso # (Auto) 0.0 Abs Immat Gran (auto) 0.10 H Imm/Tot Granulo (auto) 0.5 Sodium 142 Potassium 3.6 Chloride 108 H Carbon Dioxide 25.8 Anion Gap 11.8 BUN 10.0 Creatinine 0.84 Est GFR ( Amer) >60 Est GFR (Non-Af Amer) >60 BUN/Creatinine Ratio 11.9 Glucose 262 H Calcium 8.9 Total Bilirubin 0.3 AST 17 ALT 24 Alkaline Phosphatase 86 C-Reactive Protein 1.25 H Total Protein 5.4 L Albumin 2.6 L Globulin 2.8 Albumin/Globulin Ratio 0.9 POC Glucose 237 H 259 H 10/07/24 11:28 WBC RBC Hgb Hct MCV MCH MCHC RDW Plt Count MPV Neut % (Auto) Lymph % (Auto) [place] % (Auto) Eos % (Auto) Baso % (Auto) Neut # (Auto) Lymph # (Auto) [place] # (Auto) Eos # (Auto) Baso # (Auto) Abs Immat Gran (auto) Imm/Tot Granulo (auto) Sodium Potassium Chloride Carbon Dioxide Anion Gap BUN Creatinine Est GFR ( Amer) Est GFR (Non-Af Amer) BUN/Creatinine Ratio Glucose Calcium Total Bilirubin AST ALT Alkaline Phosphatase C-Reactive Protein Total Protein Albumin Globulin Albumin/Globulin Ratio POC Glucose 222 H Discharge Plan Discharge Disposition: Home, Self-Care Condition: Fair Discharge Medications: New fluconazole [Diflucan] 100 mg tablet 100 mg PO DAILY Qty: 10 0RF Continued buspirone 7.5 mg tablet 7.5 mg PO TID carvedilol 12.5 mg tablet 12.5 mg PO TID clonidine 0.3 mg/24 hr patch weekly 1 patch topical QWEEK Patient Comments: Put on fesoterodine 4 mg tablet extended release 24 hr 8 mg PO DAILY potassium chloride 10 mEq tablet extended release 10 meq PO BID rosuvastatin 5 mg tablet 5 mg PO QPM tizanidine 4 mg tablet 8 mg PO TID Activity: resume usual activities as tolerated Diet: advance to your usual diet Print Language: Korean Patient Instructions: Colitis (ED) Forms: Portal Instructions Follow Up Appointments: Follow up with Dr. Burciaga in 05-11 Discharge Date/Time: 10/08/24 11:35
[2024-10-08] MEDS: FLUCONAZOLE 100 MG TABLET PO (10:56)
[2024-10-08 11:13] VITALS: O2SAT 96
--- NOTE | 2024-10-11 14:35 | CM.DCFOLLOWU ---
Person spoke with: Jami How are you feeling? Having a drop in my BP and now Dr. Burciaga is adjusting my medications How is your pain? No pain Did you understand your discharge instructions? Yes Do you have any questions about your discharge instructions? No Were you given any prescriptions at discharge? Yes Were you able to get your prescriptions filled? Yes Do you understand how to take your medications as ordered? Yes Do you have any questions about your follow up appointment and do you plan to keep your follow up appointment? No I saw him on Thursday Is there anything else that you would like to discuss? No Questions/Comments/Concerns/Other:
== END 2024-10-08 11:35 | disposition home or self-care (01) | DRG 872 ==
LOC: ER 15:52 → MS 16:28
PROVIDERS: Internal Medicine; Admitting Provider Family Medicine; Emergency Provider Emergency Medicine; PCP Family Medicine; Visit Provider Family Medicine
DX: A41.9 Sepsis, unspecified organism (principal); E87.20 Acidosis, unspecified; K52.9 Noninfective gastroenteritis and colitis, unspecified; R65.20 Severe sepsis without septic shock; Z66 Do not resuscitate; E78.00 Pure hypercholesterolemia, unspecified; E86.0 Dehydration; E87.6 Hypokalemia; F41.1 Generalized anxiety disorder; I10 Essential (primary) hypertension; K59.00 Constipation, unspecified; M54.9 Dorsalgia, unspecified; R73.9 Hyperglycemia, unspecified; Z79.899 Other long term (current) drug therapy; Z88.0 Allergy status to penicillin; Z88.2 Allergy status to sulfonamides
CPT/HCPCS: 36415; 74177; 80048; 80053; 80076; 81001; 82150; 82948; 83605; 83690; 85007; 85025; 85027; 85652; 86140; 87040; 87045; 87046; 87427; 87493; 94761; 96374; 96375; 99285; G0328; G0378; J0744; J1836; J2405; J2919; Q9967

== ENCOUNTER 2025-03-30 14:15 | Inpatient (IN) | payer MEDICARE, MEDICAID, SELFPAY ==
--- OUTSIDE RECORDS SUMMARY | 2024-11-21 05:54 | XMS_ITS ---
Author Organization [facility] in [place] Address [address] [place] [address] Care Team Providers Care Attenuator Name Role Phone J Carlos Burciaga Primary Care Provider [phone] Medications Medication SIG (Take, Route, Frequency, Duration) Notes Start Date End Date Status Rosuvastatin Calcium 5 MG 1 tablet Oral Q HS for 90 days Active Encounters Encounter Location Date Provider Diagnosis [facility] [address] [place] [address] 11/21/2024 J Carlos Burciaga Plan Of Treatment Medication Medication Name Sig Start Date Stop Date Notes Rosuvastatin Calcium 5 MG 1 tablet Oral Q HS for 90 days Progress Notes * Jami WEINBERG EDOB:1970 (54 yo F)Acc No.[id number]:11/21/2024 Patient: Jami HAMMONDS :1970 A ge:54 Y S ex:Female Address:[address] [place] [address] * Refills Refill Rosuvastatin Calcium Tablet, 5 MG, Oral, 90, 1 tablet, Q HS, 90 days, Refills=3 * true * Date: Generated for Murali slaughter/Rajendra/eTransmitting on: 0 03/30/2025 02:22 PM EDT
--- OUTSIDE RECORDS SUMMARY | 2024-12-09 07:38 | XMS_ITS ---
Author Organization [facility] [place] Address [address] [place] [address] Care Team Providers Care Trouble Lineman Name Role Phone J Carlos Burciaga Primary Care Provider REASON FOR VISIT diarrhea Medications Medication SIG (Take, Route, Fr equency, Duration) Notes Start Date End Date Status Linzess 145 MCG 1 capsule at least 30 minutes before the first meal of the day on an empty stomach Orally Once a day for 30 days samples 08/23/2024 Active Encounters Encounter Location Date Provider Diagnosis [address] [place] [address] 12/09/2024 J Carlos Burciaga IBS (irritable miriam [...] Once a day for 30 days 08/23/2024 Progress Notes * Jami WEINBERG EDOB:1970 (54 yo F)Acc No.[id number]:12/09/2024 Patient: Wilfrid AKHILANAJami :1970 A ge:54 Y S ex:Female Address:[address] [place], [place] [address] [address] [address] * Refills Refill Linzess Capsule, 145 MCG, Orally, 30, 1 capsule at least 30 minutes before the first meal of the day on an empty stomach, Once a day, 30 days, Refills=11 * true * Date: Generated for Murali slaughter/Rajendra/Grecia on: 0 03/30/2025 02:22 PM EDT
[2025-03-30] VITALS (39 sets, daily range): BP systolic 117–164; BP diastolic 71–121; PULSE 119–147; TEMP 36.2–36.4; O2SAT 95–99; BMI 20.1
--- NOTE | 2025-03-30 14:20 | CT_ITS ---
[address] [address] Patient Name: HERMELINDO WEINBERG MRN: [id number] date: 1970 Sex: F Assigned Patient Location: ER Current Patient Location: ER Accession/Order Number: [id number] Exam Date: 03/30/2025 15:54 Report Date: 03/30/2025 16:03 At the request of: ASHLEY DURAN Procedure: CT abdomen pelvis wo con CT abdomen pelvis wo con 03/30/2025 3:33 PM SIGNS AND SYMPTOMS: Weakness, dehydration, bruise over forehead after fall TECHNIQUE: Multidetector ct axial images of the abdomen and pelvis were obtained without IV contrast. Multiplanar reformats were performed and reviewed to further define anatomy and possible pathology. CT was performed with one or more of the following dose reduction techniques: Automated exposure control, adjustment of the mA and/or kV according to patient size, or use of iterative reconstruction technique. COMPARISON: None. FINDINGS: Lower Chest: Within normal limits. ABDOMEN: Liver: Within normal limits. Bile Ducts: Normal caliber. Gallbladder: Previously removed. Pancreas: Within normal limits. Spleen: Within normal limits. Adrenals: Within normal limits. Kidneys: There is bilateral hydronephrosis. There is a 3 mm nonobstructing stone at the inferior pole of the right renal collecting system. Pelvis: Reproductive Organs: No pelvic masses. Ureters: Within normal limits. Bladder: There is a Lafleur catheter in the bladder. The bladder is decompressed with dependently layering gas. Bowel: Normal caliber. Mesenteric Lymph Nodes: No enlarged mesenteric lymph nodes. Peritoneum: No ascites or free air, no fluid collection. Vessels: Atherosclerotic changes are noted in the abdominal aorta. There is flattening of the inferior vena cava suggesting hypovolemia. Retroperitoneum: Within normal limits. Abdominal Wall: Within normal limits. Bones: Within normal limits. CT/CT abdomen pelvis wo con IMPRESSION: No bowel obstruction. There is bilateral hydronephrosis without evidence of obstructing stone or mass. There is a Lafleur catheter in the bladder. The bladder is decompressed with dependently layering gas. There is flattening of the inferior vena cava suggesting hypovolemia. Impression dictated by: Jad Elias M.D. 03/30/2025 4:03 PM Dictation Location: [place] [address] Electronically authenticated by: [id number] Y Date: 03/30/2025 16:03
--- NOTE | 2025-03-30 14:20 | XR_ITS ---
The [place] [id number] Patient Name: HERMELINDO WEINBERG MRN: [id number] date: 1970 Sex: F Assigned Patient Location: ED.MAIN Current Patient Location: ER Accession/Order Number: [id number] Exam Date: 03/30/2025 16:04 Report Date: 03/30/2025 16:05 At the request of: ASHLEY DURAN Procedure: XR chest 1V XR chest 1V 03/30/2025 3:33 PM SIGNS AND SYMPTOMS: Dehydration, weakness, fall ^AMS PROTOCOL: Frontal radiograph of the chest COMPARISON: 05/19/2021 FINDINGS: The trachea is midline. The heart and mediastinal structures are within normal limits. The lung parenchyma is clear. The bony thorax is intact. XR/XR chest 1V IMPRESSION: No acute cardiopulmonary pathology. Impression dictated by: Jad Elias M.D. 03/30/2025 4:05 PM Dictation Location: [employer] Electronically authenticated by: [id number] Y Date: 03/30/2025 16:05
--- NOTE | 2025-03-30 14:20 | ECG_ITS ---
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 Measurements Intervals [place] Rate: 143 P: 69 RI: 152 QRS: 66 QRSD: 88 T: 106 QT: 294 QTc: 377 Interpretive Statements 1120 Sinus tachycardia [address] depression [address] & Twave abnormality 6220 Possible left atrial enlargement 9150 abnormal ECG Compared to ECG 05/23/2021 19:00:28 ST (T wave) deviation now present Heart rate has increased Electronically Signed On 03-30-2025 21:13:45 EDT by MOISE MCNULTY M.D.
--- NOTE | 2025-03-30 14:23 | ED.GENADUL1 ---
HPI HPI - General Adult General Chief complaint: Weakness Stated complaint: DEHYDRATION Time Seen by Provider: 03/30/25 14:20 Source: patient Mode of arrival: ambulance History of Present Illness HPI narrative: 55 year old female presents to the ED via EMS for AMS, generalized weakness. EMS reported the patient was unresponsive upon their arrival. Blood sugar for EMS was >400; pt does not have known history of DM. Pt is alert and oriented upon arrival to the ED. She has hx MS. Reports low abd discomfort. She has hx incontinence. Denies fever, chills, NAGEL, dizziness. Denies CP, SOB, cough, N/V/D, dysuria. She has an area of ecchymosis to her left forehead; states she fell a few days ago. She does not ambulate. She lives at home with her . She does have hx DM, but does not take medication for it at this time. Related Data Home Medications ?Medication ?Instructions ?Recorded ?Confirmed buspirone 7.5 mg tablet 7.5 mg PO TID 03/22/24 03/30/25 carvedilol 12.5 mg tablet 12.5 mg PO TID 03/22/24 03/30/25 clonidine 0.3 mg/24 hr weekly 1 patch topical QWEEK 03/22/24 03/30/25 transdermal patch fesoterodine 4 mg tablet,extended 8 mg PO DAILY 03/22/24 03/30/25 release 24 hr potassium chloride 10 mEq 10 meq PO BID 03/22/24 03/30/25 tablet,extended release rosuvastatin 5 mg tablet 5 mg PO QPM 03/22/24 03/30/25 tizanidine 4 mg tablet 8 mg PO TID 03/22/24 03/30/25 linaclotide 72 mcg capsule mcg 03/30/25 (Linzess) Previous Rx's ?Medication ?Instructions ?Recorded fluconazole 100 mg tablet 100 mg PO DAILY #10 tabs 10/08/24 (Diflucan) Allergies Allergy/AdvReac Type Severity Reaction Status Date / Time Penicillins Allergy Severe Verified 03/22/24 10:18 Sulfa (Sulfonamide Allergy Severe Hives Verified 03/22/24 10:18 Antibiotics) Opioid HPI Opioid Management Most Recent Opioid Data: Last Pain Scale 2 10/07/24, 17:54 Last ORT Total Score 1 10/06/24, 16:39 Last ORT Risk Category Low Risk 10/06/24, 16:39 Ur Phencyclidine Scrn, (NEGATIVE) Negative Today, 14:51 Review of Systems ROS Constitutional Reports: fatigue; Denies: fever or chills Eyes Denies: change in vision Ears, nose, mouth, and throat Denies: throat pain or neck pain Cardiovascular Denies: chest pain Respiratory Denies: shortness of breath or cough Gastrointestinal Reports: abdominal pain; Denies: nausea, vomiting or diarrhea Genitourinary Reports: decreased urine ouput; Denies: painful urination Musculoskeletal Denies: back pain or neck pain Integumentary/Breast Reports: other (Known coccyx breakdown) Neurological Reports: weakness in extremities; Denies: headache PFSH PFSH Medical History (Updated 03/30/25 @ 19:10 by Chava Burciaga MD) Leukocytosis ?D72.829 - Elevated white blood cell count, unspecified (ICD-10) Colitis ?K52.9 - Noninfective gastroenteritis and colitis, unspecified (ICD-10) Cellulitis ?L03.90 - Cellulitis, unspecified (ICD-10) Encounter for cholecystectomy ?Z76.89 - Persons encountering health services in other specified circumstances (ICD-10) Multiple sclerosis ?G35 - Multiple sclerosis (ICD-10) HTN (hypertension) ?I10 - Essential (primary) hypertension (ICD-10) Surgical History (Updated 03/22/24 @ 14:55 by Ayesha Moon) H/O hysterectomy for benign disease ?Z90.710 - Acquired absence of both cervix and uterus (ICD-10) Social History (Updated 03/22/24 @ 14:56 by Ayesha Moon) Within the past year, how often did you have a drink containing alcohol: never Score interpretation: A score less than 3 is consistent with normal alcohol consumption. Smoking status: Never smoker Non-prescribed substance use: denies use Previous occupational history: disabled Highest level of school completed/degree received: some college, no degree Little interest or pleasure in doing things: not at all Feeling down, depressed, or hopeless: not at all Exam Constitutional Vital Signs, click to edit/add: Last Vital Signs Temp 97.2 F L 03/30/25 14:17 Pulse 128 H 03/30/25 19:00 Resp 21 H 03/30/25 19:00 BP 124/93 H 03/30/25 19:00 Pulse Ox 98 03/30/25 17:01 O2 Del Method Room Air 03/30/25 14:17 Common normals: no apparent distress and oriented x3 General appearance: cooperative and ill appearing HENPA Common normals: external ears normal Head and scalp: other (Ecchymosis area noted to left forehead. ) Nose: external nose normal Other: MM dry, cracked. Eye Common normals: PERRL, EOMs intact bilaterally, conjunctivae normal and no scleral icterus Neck & C-Spine Common normals: supple Cervical spine: no cervical spine tenderness and no paracervical muscle tenderness Chest Chest: symmetrical chest wall rise Respiratory Common normals: normal respiratory effort and clear to auscultation bilaterally Effort & inspection: able to speak in complete sentences and symmetric chest movement Cardio Common normals: regular rhythm Rate: tachycardic GI Palpation: firm (lower abdomen firm, distended) and tender Details: LLQ and RLQ Back & Pelvis Other: Skin breakdown to coccyx area. Areas of erythema with one open ulceration area. Neuro Common normals: oriented x3 and CN's II-XII intact bilaterally Sensorium/orientation: awake and alert Speech: speech normal Other: Generalized weakness, limited ROM BLE. Speech slow. Course Vital Signs Vital signs: Vital Signs Temperature 97.2 F L 03/30/25 14:17 Pulse Rate 144 H 03/30/25 14:17 Respiratory Rate 22 H 03/30/25 14:17 Blood Pressure 140/108 H 03/30/25 14:17 Pulse Oximetry 97 03/30/25 14:17 Oxygen Delivery Method Room Air 03/30/25 14:17 Temperature 97.2 F L 03/30/25 14:17 Pulse Rate 128 H 03/30/25 19:00 Respiratory Rate 21 H 03/30/25 19:00 Blood Pressure 124/93 H 03/30/25 19:00 Pulse Oximetry 98 03/30/25 17:01 Oxygen Delivery Method Room Air 03/30/25 14:17 Medical Decision Making MDM Narrative Medical decision making narrative: The patient presented alert and oriented with generalized weakness, appearance of dehydration. She had urinary retention upon arrival; a Lafleur catheter was inserted. BUN was 78, creatinine 2.47; this is above the patient's baseline. WBC count was 19.3, BNP 1712, potassium 2.9. Initial troponin was 142, repeat 120. RBCs were noted in the urine. Urine and blood cultures were pending. CT scan showed bilateral hydronephrosis without evidence of obstructing stone or mass. Pt did have a developing coccyx ulcer. She was given IV Levaquin and 2L NS IV here in the ED. Findings were discussed with the patient. She will be admitted for further evaluation and treatment. The patient is in agreement with the admission. I spoke with Dr. Burciaga who accepted the patient for admission. Medical Records Medical records reviewed: Yes I reviewed the patient's medical records Lab Data Lab results reviewed: Yes I reviewed the patient's lab results Labs: Lab Results 03/30/25 03/30/25 03/30/25 Range/Units 14:39 14:51 16:45 WBC 19.3 H (4.0-11.0) 10^3/uL RBC 5.64 H (4.20-5.40) 10^6/uL Hgb 16.2 H (12.0-16.0) g/dL Hct 47.0 (36.0-48.0) % MCV 83.3 (81.0-99.0) fL MCH 28.7 (26.7-34.0) pg MCHC 34.5 (29.9-35.2) g/dL RDW 13.9 (11.0-15.0) % Plt Count 332 (150-450) 10^3/uL MPV 10.1 (9.5-13.5) fL Neut % (Auto) 91.1 H (43.0-75.0) % Lymph % (Auto) 1.8 L (20.5-60.0) % [place] % (Auto) 6.0 (1.7-12.0) % Eos % (Auto) 0.1 L (0.9-7.0) % Baso % (Auto) 0.2 (0.2-2.0) % Neut # (Auto) 17.6 H (1.4-6.5) 10^3/uL Lymph # (Auto) 0.3 L (1.2-3.8) 10^3/uL [place] # (Auto) 1.2 H (0.3-0.8) 10^3/uL Eos # (Auto) 0.0 (0.0-0.7) 10^3/uL Baso # (Auto) 0.0 (0.0-0.1) 10^3/uL Abs Immat Gran (auto) 0.15 H (0.00-0.03) 10^3/uL Imm/Tot Granulo (auto) 0.8 H (0.0-0.5) % PT 13.8 H (9.0-11.6) sec INR 1.34 VBG pH 7.511 H (7.330-7.430) VBG pCO2 42.0 (40.0-52.0) mmHg Sodium 135 L (136-145) mmol/L Potassium 2.9 L* (3.5-5.1) mmol/L Chloride 94 L (98-107) mmol/L Carbon Dioxide 31.5 (21.0-32.0) mmol/L Anion Gap 12.4 BUN 78.0 H* (7.0-18.0) mg/dL Creatinine 2.47 H (0.55-1.02) mg/dL Est GFR ( Amer) 25 L (>=60 mL/min/1.73m^2) Est GFR (Non-Af Amer) 20 L (>=60 mL/min/1.73m^2) BUN/Creatinine Ratio 31.6 Glucose 359 H (74-106) mg/dL Lactate 1.5 (0.4-2.0) mmol/L Calcium 9.3 (8.5-10.1) mg/dL Total Bilirubin 1.0 (0.2-1.0) mg/dL AST 16 (15-37) U/L ALT 40 (14-59) U/L Alkaline Phosphatase 180 H (46-116) U/L Total Creatine Kinase 19 L (26-192) U/L CK-MB (CK-2) 2.29 (<=3.60) ng/mL Myoglobin 69 (9-82) ng/mL Troponin I High Sens 142.0 H* 120.8 H* (4.0-51.3) pg/mL NT-Pro-B Natriuret Pep 1712.0 H* (<=900.0) pg/mL Total Protein 6.2 L (6.4-8.2) g/dL Albumin 2.3 L (3.4-5.0) g/dL Globulin 3.9 g/dL Albumin/Globulin Ratio 0.6 Lipase 22.0 (16.0-77.0) U/L Urine Color Yellow (YELLOW) Urine Clarity Clear (CLEAR) Urine pH 6.0 (5.0-9.0) Ur Specific [place] 1.010 (1.005-1.025) Urine Protein Trace (NEG/TRACE) mg/dL Urine Glucose (UA) >=1000 A (NEGATIVE) mg/dL Urine Ketones Negative (NEGATIVE) mg/dL Urine Occult Blood Large A (NEGATIVE) Urine Nitrite Negative (NEGATIVE) Urine Bilirubin Negative (NEGATIVE) Urine Urobilinogen 0.2 (0.2-1.0) EU/dL Ur Leukocyte Esterase Negative (NEGATIVE) Urine RBC 10-20 A (0-2) #/HPF Urine WBC None seen (NONE SEEN) #/HPF Ur Squamous Epith Cells Rare (NONE/RARE) #/LPF Urine Crystals None seen (None Seen) #/HPF Urine Bacteria Trace A (NONE SEEN) #/HPF Urine Casts None seen (NONE SEEN) #/LPF Urine Mucus None seen (NONE SEEN) Ur Culture Indicated? No Urine Opiates Screen Negative (NEGATIVE) Ur Buprenorphine Scrn Negative (NEGATIVE) Ur Oxycodone Screen Negative (NEGATIVE) Urine Methadone Screen Negative (NEGATIVE) Ur Barbiturates Screen Negative (NEGATIVE) U Tricyclic Antidepress Negative (NEGATIVE) Ur Phencyclidine Scrn Negative (NEGATIVE) Ur Amphetamines Screen Negative (NEGATIVE) U Methamphetamines Scrn Negative (NEGATIVE) U Benzodiazepines Scrn Negative (NEGATIVE) Urine Cocaine Screen Negative (NEGATIVE) U Cannabinoids Screen Negative (NEGATIVE) Ethanol Quant <3 mg/dL POC Glucose 366 H (74-106) mg/dL Imaging Data CT and XR: Radiologist's impression: ITS Impressions Abdomen/Pelvis CT 03/30/25 14:20 IMPRESSION: No bowel obstruction. There is bilateral hydronephrosis without evidence of obstructing stone or mass. There is a Lafleur catheter in the bladder. The bladder is decompressed with dependently layering gas. There is flattening of the inferior vena cava suggesting hypovolemia. Impression dictated by: Jad Elias M.D. 03/30/2025 4:03 PM Dictation Location: [facility] Electronically authenticated by: [id number] Y Date: 03/30/2025 16:03 Chest X-Ray 03/30/25 14:20 IMPRESSION: No acute cardiopulmonary pathology. Impression dictated by: Jad Elias M.D. 03/30/2025 4:05 PM Dictation Location: [facility] Electronically authenticated by: [id number] Y Date: 03/30/2025 16:[address] 03/30/25 14:28 IMPRESSION: No acute intracranial pathology. Chronic age-related degenerative changes are noted as above. Impression dictated by: Jad Elias M.D. 03/30/2025 3:53 PM Dictation Location: [facility] Electronically authenticated by: [id number] Y Date: 03/30/2025 15:53 ECG Data Attestation: ?I have reviewed the pertinent ECG results. (EKG was reviewed by the attending physician. It showed sinus tachycardia at a rate of 143. No STEMI.) Interpretation: Measurements Intervals [place] Rate: 143 P: 69 IL: 152 QRS: 66 QRSD: 88 T: 106 QT: 294 QTc: 377 Interpretive Statements 1120 Sinus tachycardia [address] depression [address] & Twave abnormality 6220 Possible left atrial enlargement 9150 abnormal ECG No previous ECG available for comparison Discharge Plan Discharge Chief Complaint: Weakness Clinical Impression: IAN (acute kidney injury), Hematuria, Elevated blood sugar, Acute urinary retention, Leukocytosis, Pressure ulcer of coccygeal region Patient Disposition: Admitted As Inpatient Time of Disposition Decision: 18:14 Condition: Good
--- OUTSIDE RECORDS SUMMARY | 2025-03-30 14:23 | XMS_ITS | Encounter Summary ---
Author Organization [facility] Address [address] [place] [address] Care Team Providers Care Business Office Technology Instructor Name Role Phone Chava Burciaga MD Primary Care Provider [phone] Encounter Details Date Type Department Care Team (Late st Contact Info) Description 03/13/2025 Refill [facility] [address] [address] [place] [address] [phone] Wandy Mckeon NP [address] [facility] [address] [place] [address] [phone] Multiple sclerosis (CMS/HCC); Acute relapsing multiple sclerosis (CMS/HCC) Social History Tobacco Use Types Packs/Day Years Used Date Smoking Tobacco: Never Smokeless Tobacco: Never Alcohol Use Standard Drinks/Week Comments Never 0 (1 standard drink = 0.6 oz pur e alcohol) Comments No Sex and Gender Information Value Date Recorded Sex Assigned at Not on file Legal Sex Female 10:14 PM EDT Gender Identity Not on file Sexual Orientation Not on file documented as of this encounter Miscellaneous Notes * Addendum Note - Wandy Mckeon NP - 03/16/2025 12:24 PM EDTAddended by: WANDY MCKEON on: 03/16/2025 12:24 PM Modules accepted: Orders * Telephone Encounter - Wandy Mckeon NP - 03/16/2025 12:24 PM EDT Resent. * Telephone Encounter - Corina Ramos - 03/16/2025 11:48 AM EDT Called and spoke to patient. States that she is needing rx sent to [facility]. She also states that Dr. Dodge has been sending in for 25 injections cause otherwise she is not able to use all of the medication in the vial. * Addendum Note - Wandy Mckeon NP - 03/16/2025 9:33 AM EDTAddended by: WANDY MCKEON on: 03/16/2025 09:33 AM Modules accepted: Orders * Telephone Encounter - Wandy Mckeon NP - 03/16/2025 9:33 AM EDT Resent to [facility] * Telephone Encounter - Wandy Mckeon NP - 03/13/2025 9:56 AM EDT Patient calls for Acthar refill. I sent to [facility]? She was asking for call back. documented in this encounter Plan of Treatment Upcoming Encounters Date Type Department Care Team (Late st Contact Info) Description 05/24/2025 11:00 AM EDT Office Visit [facility] [address] [place] [address] Onel Dodge MD [address] Rios [address] [place] [phone] documented as of this encounter Visit Diagnoses Diagnosis Multiple sclerosis (CMS/HCC) Multiple sclerosis Acute relapsing multiple sclerosis (CMS/HCC) Multiple sclerosis documented in this encounter Care Teams Business Office Technology Instructor Relationship Specialty Start Date End Date Chava Burciaga MD PCP - General Family Medicine 06/15/24 documented as of this encounter
--- OUTSIDE RECORDS SUMMARY | 2025-03-30 14:23 | XMS_ITS | Clinical Summary ---
Author Organization [facility] Healthcare Address [address] [place] [address] Care Team Providers Care Mold Dumper Name Role Phone Chava Burciaga MD Primary Care Provider [phone] Allergies Active Allergy Reactions Criticality Noted Date Comments Atorvastatin 04/30/2023 Other Reaction(s): Myalgias (Muscle Pain) Hydralazine Unknown 04/16/2022 Other Reaction(s): Tachycardia Penicillins Unknown 04/16/2022 Other Reaction(s): Not available Sulfa Antibiotics 04/30/2023 Medications fesoterodine ER (Toviaz) 4 MG 24 hr tablet Take 4 mg by mouth in the morning. 023 Active cloNIDine (Catapres-TTS ) 0.2 MG/24HR Place 1 patch on the skin 1 (one) time per week. Active Accu-Chek Guide test strip 1 each by Other route if needed. 023 Active Accu-Chek Softclix Lancets lancets 1 each by Other route if needed. 023 Active rosuvastatin (Crestor) 10 MG tablet Take 10 mg by mouth in the morning. Active biotin 10 MG tablet Take 10 mg by mouth every 12 (twelve) hours. Active carvedilol (Coreg) 12.5 MG tablet Take 12.5 mg by mouth in the morning and 12.5 mg in the evening and 12.5 mg before bedtime. Active cholecalcifer ol (Vitamin D-3) 1.25 MG (72513 UT) capsule Take 1 capsule by mouth 1 (one) time per week. Active ocrelizumab (Ocrevus) 300 MG/10ML solution Infuse 300 mg into a venous catheter See administration instructions. Does 2 times yearly Active potassium chloride CR (Klor-Con) 10 MEQ ER tablet TAKE ONE TABLET BY MOUTH TWICE A DAY WITH FOOD FOR 30 DAYS Active ferrous sulfate 325 (65 Fe) MG tablet Take 325 mg by mouth in the morning. Take with meals. Active meclizine (Antivert) 25 MG tabletIndicat ions:Dizzines s TAKE 1 TABLET (25 MG) BY MOUTH 3 (THREE) TIMES A DAY NEEDED FOR DIZZINESS. 30 tablet 11 024 Active busPIRone (Buspar) 7.5 MG tabletIndicat ions:Multiple sclerosis (CMS/HCC) Take 1 tablet (7.5 mg) by mouth in the morning and 1 tablet (7.5 mg) in the evening and 1 tablet (7.5 mg) before bedtime. 270 tablet 3 024 2024 Active tiZANidine (Zanaflex) 4 MG tabletIndicat ions:Multiple sclerosis (CMS/HCC) Take 2 tablets (8 mg) by mouth every 8 (eight) hours if needed for muscle spasms 540 tablet 2 025 Active dexAMETHasone (Decadron) 2 MG tabletIndicat ions:Multiple sclerosis (CMS/HCC) TAKE THREE TABLETS BY MOUTH DAILY FOR 3 DAYS, TWO TABLETS FOR 3 DAYS, THEN ONE TABLET FOR 3 DAYS AND THEN STOP (9 DAYS TOTAL) 18 tablet 1 025 Active fluconazole (Diflucan) 200 MG tabletIndicat ions:Acute relapsing multiple sclerosis (CMS/HCC) TAKE 1 TABLET (200 MG) BY MOUTH IN THE MORNING FOR 9 DAYS. 9 tablet 1 025 Active corticotropin (Acthar) 80 UNIT/ML injectable gelIndication s:Multiple sclerosis (CMS/HCC),Acu te relapsing multiple sclerosis (CMS/HCC) Inject 1 mL (80 Units) into the shoulder, thigh, or buttocks Daily for 21 days 21 mL 025 2024 Active corticotropin (Acthar) 80 UNIT/ML injectable gelIndication s:Multiple sclerosis (CMS/HCC),Acu te relapsing multiple sclerosis (CMS/HCC) Inject 1 mL (80 Units) into the shoulder, thigh, or buttocks Daily 1 mL 11 024 2024 Discontinued(R eorder) corticotropin (Acthar) 80 UNIT/ML injectable gelIndication s:Multiple sclerosis (CMS/HCC),Acu te relapsing multiple sclerosis (CMS/HCC) Inject 1 mL (80 Units) into the shoulder, thigh, or buttocks Daily for 21 days 21 mL 025 2024 Discontinued corticotropin (Acthar) 80 UNIT/ML injectable gelIndication s:Multiple sclerosis (CMS/HCC),Acu te relapsing multiple sclerosis (CMS/HCC) Inject 1 mL (80 Units) into the shoulder, thigh, or buttocks Daily for 21 days 21 mL 025 2024 Discontinued Active Problems Problem Noted Date Diagnosed Date Cellulitis 05/16/2024 Vitamin D deficiency 11/16/2023 Type 2 diabetes mellitus 11/16/2023 Osteoarthritis 11/16/2023 Osteoarthritis of knee 11/16/2023 Myocardial infarction 11/16/2023 Irritable bowel syndrome 11/16/2023 Anxiety 11/16/2023 Vertigo of central origin 08/17/2023 Acute non-ST segment elevation myocardial infarc tion 04/30/2023 Cerebellar infarction 04/30/2023 Hypertensive disorder 04/30/2023 Myalgia 04/16/2022 Fatigue 04/16/2022 Acute relapsing multiple sclerosis 08/15/2021 Dizziness 08/15/2021 Weakness 08/15/2021 Encounters Date Type Department Care Team Description 03/13/2025 Refill [facility] [address]OS [address] [place] [phone] Federica Romano, ASSOCIATE CIVIL ENGINEER Multiple sclerosis (CMS/HCC); Acute relapsing multiple sclerosis (CMS/HCC) 02/22/2025 2:40 PM EDT Office Visit [facility] [address] [facility] [address] [place] [address] Onel Dodge MD Vertigo of central origin (Primary Dx); Multiple sclerosis (CMS/HCC); Acute relapsing multiple sclerosis (CMS/HCC) 02/22/2025 Bamboo flowsheet [facility] [address] [place] [address] Onel Dodge MD 02/22/2025 Travel from Last 3 Months Social History Tobacco Use Types Packs/Day Years Used Date Smoking Tobacco: Never Smokeless Tobacco: Never Tobacco Cessation:Counseling Given: Not Answered Alcohol Use Standard Drinks/Week Comments Never 0 (1 standard drink = 0.6 oz pur e alcohol) Comments No Sex and Gender Information Value Date Recorded Sex Assigned at Not on file Legal Sex Female 10:14 PM EDT Gender Identity Not on file Sexual Orientation Not on file Last Filed Vital Signs Vital Sign Reading Time Taken Comments Blood Pressure 130/78 06/15/2024 1:03 PM EDT Pulse 100 06/15/2024 1:03 PM EDT Temperature - - Respiratory Rate 16 06/15/2024 1:03 PM EDT Oxygen Saturation 98% 06/15/2024 1:03 PM EDT Inhaled Oxygen Concentration - - Weight 47.6 kg (105 lb) 02/22/2025 2:43 PM EDT Height 160 cm (5' 3 ) 02/22/2025 2:43 PM EDT Body Mass Index 18.6 02/22/2025 2:43 PM EDT Plan of Treatment Upcoming Encounters Date Type Department Care Team (Late st Contact Info) Description 05/24/2025 11:00 AM EDT Office Visit [facility] [address] [place] [phone] Onel Dodge MD [address] [facility] [address] [place] [phone] Health Maintenance Due Date Last Done Comments CT Colonography 1971 Colonoscopy 1971 Colorectal Cancer Screening 1970 FIT-DNA 1971 FIT 1971 FOBT 1970 Sigmoidoscopy 1971 Pap Smear 1992 Cervical Cancer Screening 2001 HPV/Cotest 2001 Mammogram 2011 Influenza Vaccine Completed 08/26/2024, , 08/28/2021, Additional history exists Insurance [place]ICAID [place] [employer] MED[employer]VANTAGE Care Teams Mold Dumper Relationship Specialty Start Date End Date Chava Burciaga MD PCP - General Family Medicine 06/15/24
--- OUTSIDE RECORDS SUMMARY | 2025-03-30 14:23 | XMS_ITS | Encounter Summary ---
Author Organization [facility] Address [address] [facility] [place] [address] Care Team Providers Care Metal Baler Name Role Phone Chava Burciaga MD Primary Care Provider [phone] Encounter Details Date Type Department Care Team (Late Contact Info) Description 09/05/2023 Abstract [facility] [address] [place] [phone] Onel Dodge MD [address] [facility] [address] [place] [address] [phone] Social History Tobacco Use Types Packs/Day Years [...] on file documented as of this encounter Plan of Treatment Upcoming Encounters Date Type Department Care Team (Late Contact Info) Description 05/24/2025 11:00 AM EDT Office Visit [facility] [address] [facility] [address] [phone] Onel Dodge MD [address] [facility] [address] [place] [phone] documented as of this encounter Visit Diagnoses Not on filedocumented in this encounter Care Teams Metal Baler Relationship Specialty Start Date End Date Chava Burciaga MD PCP - General Family Medicine 06/15/24 documented as of this encounter
--- OUTSIDE RECORDS SUMMARY | 2025-03-30 14:23 | XMS_ITS | Encounter Summary ---
Author Organization [facility] Address [address] [facility] [place] [address] Care Team Providers Care Medical Case Worker Name Role Phone Chava Burciaga MD Primary Care Provider [phone] Encounter Details Date Type Department Care Team (Late Contact Info) Description 05/13/2023 Abstract [facility] [address] [place] [phone] Onel Dodge MD [address] [facility] [address] [place] [address] [phone] Social History Tobacco Use Types Packs/Day Years [...] 05/24/2025 11:00 AM EDT Office Visit [facility] [address] [facility] [address] [address] [place] [phone] Onel Dodge MD [address] [facility] [address] [place] [address] [phone] documented as of this encounter Visit Diagnoses Not on filedocumented in this encounter Care Teams Medical Case Worker Relationship Specialty Start Date End Date Chava Burciaga MD PCP - General Family Medicine 06/15/24 documented as of this encounter
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
--- NOTE | 2025-03-30 14:28 | CT_ITS ---
The [address] [address] Patient Name: HERMELINDO WEINBERG MRN: [id number] date: 1970 Sex: F Assigned Patient Location: ED.MAIN Current Patient Location: Accession/Order Number: [id number] Exam Date: 03/30/2025 15:48 Report Date: 03/30/2025 15:53 At the request of: ASHLEY DURAN Procedure: CT head/brain wo con CT head/brain wo con 03/30/2025 3:33 PM SIGNS AND SYMPTOMS: Dehydration, weakness, Ceasar on forehead after fall TECHNIQUE:Multi-detector CT axial slices of the brain were obtained without IV contrast. CT was performed with one or more of the following dose reduction techniques: Automated exposure control, adjustment of the mA and/or kV according to patient size, or use of iterative reconstruction technique. COMPARISON: 04/14/2021 FINDINGS: There is no shift of the midline structures, acute intracranial bleeding, mass effects, or evidence of acute ischemia. Atherosclerotic changes are noted in the intracranial segments of the internal carotid arteries. There is age-related cortical atrophy with periventricular white matter hypoattenuation. The ventricular system is normal in size. The brainstem and the cerebellum are unremarkable. The visualized intraorbital contents, the visualized paranasal sinuses, and the infratemporal soft tissues show no acute abnormality. The osseous structures in the skull base and the calvarium show no abnormality. CT/CT head/brain wo con IMPRESSION: No acute intracranial pathology. Chronic age-related degenerative changes are noted as above. Impression dictated by: Jad Elias M.D. 03/30/2025 3:53 PM Dictation Location: [employer] Electronically authenticated by: [id number] Y Date: 03/30/2025 15:53
[2025-03-30] MEDS: 0.9 % SODIUM CHLORIDE 1,000 ML 999 ML IV (14:39)
[2025-03-30 14:47] LABS: pH VBG 7.511 (7.330-7.430)
[2025-03-30 14:48] LABS: Basophils Percent Auto 0.2 % (0.2-2.0); Eosinophils Percent Auto 0.1 % (0.9-7.0); Hemoglobin 16.2 g/dL (12.0-16.0); Immature Granulocytes Abs Auto 0.15 10^3/uL (0.00-0.03); Immature Granulocytes Pct Auto 0.8 % (0.0-0.5); Lymphocytes Absolute Auto 0.3 10^3/uL (1.2-3.8); Lymphocytes Percent Auto 1.8 % (20.5-60.0); Mean Corpuscular HGB Conc 34.5 g/dL (29.9-35.2); Mean Corpuscular Hemoglobin 28.7 pg (26.7-34.0); Mean Corpuscular Volume 83.3 fL (81.0-99.0); Mean Platelet Volume 10.1 fL (9.5-13.5); Monocytes Absolute Auto 1.2 10^3/uL (0.3-0.8); Neutrophils Absolute Auto 17.6 10^3/uL (1.4-6.5); Neutrophils Percent Auto 91.1 % (43.0-75.0); Platelet Count 332 10^3/uL (150-450); Red Blood Count 5.64 10^6/uL (4.20-5.40); Red Cell Distribution Width 13.9 % (11.0-15.0); White Blood Count 19.3 10^3/uL (4.0-11.0)
[2025-03-30 14:53] LABS: Glucometer 366 mg/dL (74-106)
[2025-03-30 15:00] LABS: Bilirubin Urine NEGATIVE (NEGATIVE); Blood Urine LARGE (NEGATIVE); Clarity Urine CLEAR (CLEAR); Color Urine YELLOW (YELLOW); Glucose Urine UA >=1000 mg/dL (NEGATIVE); Ketones Urine NEGATIVE (NEGATIVE); Leukocyte Esterase Urine NEGATIVE (NEGATIVE); Nitrite Urine NEGATIVE (NEGATIVE); Protein Urine TRACE mg/dL (NEG/TRACE); Urobilinogen Urine 0.2 EU/dL (0.2-1.0)
[2025-03-30 15:01] LABS: Urine Microscopic Indicated YES
[2025-03-30 15:03] LABS: INR 1.34; Prothrombin Time 13.8 sec (9.0-11.6)
[2025-03-30 15:10] LABS: Amphetamine Screen Urine NEGATIVE (NEGATIVE); Bacteria Urine TRACE #/HPF (NONE SEEN); Benzodiazepines Screen Urine NEGATIVE (NEGATIVE); Cannabinoid Screen Urine NEGATIVE (NEGATIVE); Cast Seen? NONE SEEN #/LPF (NONE SEEN); Cocaine Screen Urine NEGATIVE (NEGATIVE); Crystals Seen? None Seen #/HPF (None Seen); Methamphetamines Screen Urine NEGATIVE (NEGATIVE); Mucus Urine NONE SEEN (NONE SEEN); Opiate Screen Urine NEGATIVE (NEGATIVE); Phencyclidine Screen Urine NEGATIVE (NEGATIVE); Squamous Epithelial Cell Urine RARE #/LPF (NONE/RARE); Tricyclic Antidepressant Urine NEGATIVE (NEGATIVE); Urine Culture Indicated NO; WBC Urine NONE SEEN #/HPF (NONE SEEN)
[2025-03-30 15:11] LABS: Barbiturates Screen Urine NEGATIVE (NEGATIVE); Buprenorphine Screen Urine NEGATIVE (NEGATIVE); Methadone Screen Urine NEGATIVE (NEGATIVE); Oxycodone Screen Urine NEGATIVE (NEGATIVE)
[2025-03-30 15:17] LABS: Alanine Aminotransferase 40 U/L (14-59); Albumin Globulin Ratio 0.6; Albumin Level 2.3 g/dL (3.4-5.0); Alkaline Phosphatase 180 U/L (46-116); Anion Gap 12.4; Aspartate Amino Transferase 16 U/L (15-37); BUN Creatinine Ratio 31.6; Calcium 9.3 mg/dL (8.5-10.1); Carbon Dioxide 31.5 mmol/L (21.0-32.0); Chloride 94 mmol/L (98-107); Creatine Kinase 19 U/L (26-192); Creatine Kinase MB 2.29 ng/mL (<=3.60); Estimated GFR (African America 25 (>=60 mL/min/1.73m^2); Estimated GFR (Non-African Ame 20 (>=60 mL/min/1.73m^2); Globulin 3.9 g/dL; Glucose 359 mg/dL (74-106); Myoglobin 69 ng/mL (9-82); Sodium 135 mmol/L (136-145); Total Protein 6.2 g/dL (6.4-8.2)
[2025-03-30 15:19] LABS: Ethanol <3 mg/dL
[2025-03-30 15:20] LABS: Potassium 2.9 mmol/L (3.5-5.1)
[2025-03-30 16:10] LABS: Lactate/Lactic Acid 1.5 mmol/L (0.4-2.0)
[2025-03-30] MEDS: 0.9 % SODIUM CHLORIDE 1,000 ML 500 ML IV (16:52)
[2025-03-30] MEDS: LEVOFLOXACIN IN DEXTROSE 5 % 750 MG/150 ML PREMIX 100 MG IV (16:52)
[2025-03-30 17:14] LABS: Troponin I High Sensitivity 120.8 pg/mL (4.0-51.3)
--- NOTE | 2025-03-30 18:40 | P.HP_ITS ---
HPI H&P: HPI History of Present Illness Chief complaint: DEHYDRATION Narrative: Patient with altered mental status at home, difficult to arouse, when ambulance arrived, she was unresponsive, sugar was over 500, brought to ER found to have tachycardia, respiratory distress, hypertensive urgency leukocytosis secondary to sepsis secondary to likely UTI When I saw patient in the emergency room, very dry mouth, but was awake and asking appropriate questions and answering questions appropriately, she also feels as more her bladder she has been having bladder spasms the last several days although urine sample notably specific for a UTI Opioid HPI Opioid Management Most Recent Pain and Opioid Data: Last Pain Scale 2 10/07/24, 17:54 Last ORT Total Score 1 10/06/24, 16:39 Last ORT Risk Category Low Risk 10/06/24, 16:39 Ur Phencyclidine Scrn, (NEGATIVE) Negative Today, 14:51 Review of Systems ROS Constitutional Reports: chills, fatigue, malaise and night sweats Cardiovascular Denies: chest pain or palpitations Respiratory Denies: shortness of breath or cough Genitourinary Reports: painful urination and urinary frequency PFSH PFSH Medical History (Updated 03/30/25 @ 19:10 by Chava Burciaga MD) Leukocytosis ?D72.829 - Elevated white blood cell count, unspecified (ICD-10) Colitis ?K52.9 - Noninfective gastroenteritis and colitis, unspecified (ICD-10) Cellulitis ?L03.90 - Cellulitis, unspecified (ICD-10) Encounter for cholecystectomy ?Z76.89 - Persons encountering health services in other specified circumstances (ICD-10) Multiple sclerosis ?G35 - Multiple sclerosis (ICD-10) HTN (hypertension) ?I10 - Essential (primary) hypertension (ICD-10) Surgical History (Updated 03/22/24 @ 14:55 by Ayesha Moon) H/O hysterectomy for benign disease ?Z90.710 - Acquired absence of both cervix and uterus (ICD-10) Social History (Updated 03/22/24 @ 14:56 by Ayesha Moon) Within the past year, how often did you have a drink containing alcohol: never Score interpretation: A score less than 3 is consistent with normal alcohol consumption. Smoking status: Never smoker Non-prescribed substance use: denies use Previous occupational history: disabled Highest level of school completed/degree received: some college, no degree Little interest or pleasure in doing things: not at all Feeling down, depressed, or hopeless: not at all Meds Home Medications and Allergies Home Medications ?Medication ?Instructions ?Recorded ?Confirmed ?Type buspirone 7.5 mg tablet 7.5 mg PO TID 03/22/2403/30 History carvedilol 12.5 mg tablet 12.5 mg PO TID 03/22/2403/03 History clonidine 0.3 mg/24 hr weekly 1 patch topical QWEEK 03/30/25 History transdermal patch fesoterodine 4 mg tablet,extended 8 mg PO DAILY 03/30/25 History release 24 hr potassium chloride 10 mEq 10 meq PO BID 03/22/2403/30 History tablet,extended release rosuvastatin 5 mg tablet 5 mg PO QPM 03/22/24 5 History tizanidine 4 mg tablet 8 mg PO TID 03/22/24 5 History fluconazole 100 mg tablet 100 mg PO DAILY #10 tabs 05/2503/30/25 Rx (Diflucan) linaclotide 72 mcg capsule mcg 03/30/25 History (Linzess) Allergies Allergy/AdvReac Type Severity Reaction Status Date / Time Penicillins Allergy Severe Verified 03/22/24 10:18 Sulfa (Sulfonamide Allergy Severe Hives Verified 03/22/24 10:18 Antibiotics) Exam Constitutional Vital Signs, click to edit/add: Last Vital Signs Temp 97.2 F L 03/30/25 14:17 Pulse 127 H 03/30/25 18:20 Resp 17 03/30/25 18:20 BP 125/71 03/30/25 18:01 Pulse Ox 98 03/30/25 17:01 O2 Del Method Room Air 03/30/25 14:17 Documenting provider has reviewed patient's vital signs: yes Common normals: apparent distress (Having chills and seemed very fatigued, ) Respiratory Common normals: normal respiratory effort Cardio Common normals: regular rate and regular rhythm Results Labs Labs: Short CBC 03/30/25 Range/Units 14:39 WBC 19.3 H (4.0-11.0) 10^3/uL Hgb 16.2 H (12.0-16.0) g/dL Hct 47.0 (36.0-48.0) % Plt Count 332 (150-450) 10^3/uL BMP 03/30/25 14:39 Sodium 135 L Potassium 2.9 L* Chloride 94 L Carbon Dioxide 31.5 BUN 78.0 H* Creatinine 2.47 H Glucose 359 H Calcium 9.3 Cardiac Enzymes 03/30/25 Range/Units 14:39 Total Creatine Kinase 19 L (26-192) U/L CK-MB (CK-2) 2.29 (<=3.60) ng/mL Liver Function 03/30/25 Range/Units 14:39 Total Bilirubin 1.0 (0.2-1.0) mg/dL AST 16 (15-37) U/L ALT 40 (14-59) U/L Alkaline Phosphatase 180 H (46-116) U/L Albumin 2.3 L (3.4-5.0) g/dL Urine 03/30/25 Range/Units 14:51 Urine Color Yellow (YELLOW) Urine Clarity Clear (CLEAR) Urine pH 6.0 (5.0-9.0) Ur Specific [place] 1.010 (1.005-1.025) Urine Protein Trace (NEG/TRACE) mg/dL Urine Glucose (UA) >=1000 A (NEGATIVE) mg/dL ABG ABG results: 03/30/25 14:39 VBG pH 7.511 H VBG pCO2 42.0 Assessment and Plan Assessment and Plan (1) Pressure ulcer of coccygeal region: (2) Leukocytosis: (3) Acute urinary retention: (4) Elevated blood sugar: (5) Hematuria: (6) IAN (acute kidney injury): (7) Leukocytosis: (8) Multiple sclerosis: (9) HTN (hypertension): (10) Diabetes mellitus: (11) Severe protein-calorie malnutrition: (12) Acute non-ST elevation myocardial infarction (NSTEMI): (13) Hypokalemia: (14) Elevated liver enzymes: (15) Acute renal failure: Plan Admission findings: Sinus tachycardia, respiratory distress, hypertensive urgency, leukocytosis, altered mental status, acute renal failure (baseline creatinine 0.84, creatinine admission 2.97 which is 353.6% above baseline), secondary to UTI leading to this sepsis, you can see is a little solange in the upper right-hand corner Sepsis secondary to UTI-IV fluids, IV antibiotics, cultures pending blood cultures and urine Altered mental status likely secondary to the above-improving so far with hydration Hypertensive urgency-BP improving mental status improving Acute NSTEMI type II secondary to the above-repeat labs in a.m. Polycythemia-likely secondary to the dehydration-repeat in a.m. Hypokalemia-supplement Poorly controlled diabetes mellitus-insulin sliding scale Elevated high-sensitivity troponin-check echocardiogram likely related to the elevation in the creatinine Multiple sclerosis by history patient does not feel this is a flare Admission status: Patient found with altered mental status, acute renal failure, sepsis secondary to UTI, medically necessary treatment will span 2 midnights. Inpatient status Urinary Catheter Management Urinary Catheter Management Urethral: Cath placed during this visit: yes Urethral indwelling: Yes Reason for continuing: acute urinary retention Insertion date: 03/30/25 Insertion time: 14:55
[2025-03-30 19:30] LABS: Creatine Kinase 25 U/L (26-192); Creatine Kinase MB 2.45 ng/mL (<=3.60); Magnesium 1.9 mg/dL (1.8-2.4); Myoglobin 55 ng/mL (9-82)
--- OUTSIDE RECORDS SUMMARY | 2025-03-30 19:34 | XMS_ITS | CCD ---
Author Organization [facility] Care Team Providers Care It Audit Manager Name Role Phone ELTAHAWY, EHAB A Unavailable [...] HOY, DR NICKERSON Primary Care Unavailable Marshal Dodge Referring Unavailable Marshal Dodge Attending Unavailable Marshal Dodge Admitting Unavailable Krishan Burciaga MD Primary Care Provider [phone] MARSHAL DODGE Attending Unavailable MARSHAL DODGE Attending Unavailable MARSHAL DODGE Attending Unavailable CARLOS MARTIN Attending Unavailable Krishan Burciaga MD Primary Care Provider [phone] Allergies Allergy Classification Reported Allergen(s) Allergy Type Date of Onset Reaction(s) Facility (1 source) Penicillins Drug allergy (disorder) 06-02-2015 [facility] (2 sources) Sulfonamides (Antibiotic) Drug allergy (disorder) 09-14-2013 [facility] (1 source) hydrALAZINE Drug Allergy 04-15-2021 [facility] Repository (1 source) Penicillin Drug Allergy 09-14-2013 [facility] Repository (12 sources) atorvastatin Drug Allergy 04-30-2023 [facility] (12 sources) hydrALAZINE Drug Allergy 04-16-2022 Unknown [facility] (12 sources) Penicillins Drug Allergy 04-16-2022 Unknown [facility] (12 sources) Sulfonamides (Antibiotic) Drug Allergy 04-30-2023 [facility] Medications Current Medications Medication Drug Class(es) Dates Sig (Normalized) Sig (Original) biotin 10 mg oral tablet (12 sources) take 1 tablet by mouth every twelve hours biotin 10 MG tablet Take 10 mg by mouth every 12 (twelve) hours. Active busPIRone hydrochloride 7.5 mg oral tablet (13 sources) Start: 4 End: 5 take 1 [...] 07/26/2025 Active carvedilol 12.5 mg oral tablet (12 sources) alpha-Adrenergic Diamante, beta-Adrenergic Diamante take 1 tablet by mouth in the morning, then take 1 tablet by mouth in the evening, then take 1 tablet by mouth at bedtime carvedilol (Coreg) 12.5 MG tablet Take 12.5 mg by mouth in the morning and 12.5 mg in the evening and 12.5 mg before bedtime. Active cholecalciferol 1.25 mg oral capsule (12 sources) Vitamin D take 1 capsule by mouth every week cholecalciferol (Vitamin D-3) 1.25 MG (31577 UT) capsule Take 1 capsule by mouth 1 (one) time per week. Active 168 hr cloNIDine 0.54636 mg/hr transdermal system (12 sources) Central alpha-2 Adrenergic Agonist cloNIDine (Catapres-TTS) 0.2 MG/24HR Place 1 patch on the skin 1 (one) time per week. Active corticotropin 80 unt/ml injectable solution (13 sources) Adrenocorticotropic Hormone Start: 4 End: 5 corticotropin (Acthar) 80 UNIT/ML injectable gel Indications: Multiple sclerosis (CMS/HCC) , Acute relapsing multiple sclerosis (CMS/HCC) Inject 1 mL (80 Units) into the shoulder, thigh, or buttocks Daily for 21 days 21 mL 03/13/2025 04/03/2025 Active dexamethasone 2 mg oral tablet (14 sources) Corticosteroid Start: 4 End: 5 dexAMETHasone (Decadron) 2 MG tablet Indications: Multiple sclerosis (CMS/HCC) TAKE THREE TABLETS BY MOUTH DAILY FOR 3 DAYS, TWO TABLETS FOR 3 DAYS, THEN ONE TABLET FOR 3 DAYS AND THEN STOP (9 DAYS TOTAL) 18 tablet 1 02/22/2025 Active ferrous sulfate 325 mg oral tablet (12 sources) take 1 tablet by mouth at mealtime ferrous sulfate 325 (65 Fe) MG tablet Take 325 mg by mouth in the morning. Take with meals. Active 24 hr fesoterodine fumarate 4 mg extended release oral tablet (12 sources) Start: 3 take 1 tablet by mouth in the morning, then take 1 tablet by mouth every twenty-four hours fesoterodine ER (Toviaz) 4 MG 24 hr tablet Take 4 mg by mouth in the morning. 11/20/2022 Active fluconazole 200 mg oral tablet (14 sources) Azole Antifungal Start: 4 End: 5 take 1 tablet by mouth in the morning fluconazole (Diflucan) 200 MG tablet Indications: Acute relapsing multiple sclerosis (CMS/HCC) TAKE 1 TABLET (200 MG) BY MOUTH IN THE MORNING FOR 9 DAYS. 9 tablet 1 02/22/2025 Active meclizine hydrochloride 25 mg oral tablet (12 sources) Antiemetic Start: 4 take 1 tablet by mouth three times daily as needed for dizziness meclizine (Antivert) 25 MG tablet Indications: Dizziness TAKE 1 TABLET (25 MG) BY MOUTH 3 (THREE) TIMES A DAY NEEDED FOR DIZZINESS. 30 tablet 11 11/30/2023 Active 10 ml ocrelizumab 30 mg/ml injection (12 sources) ocrelizumab (Ocrevus) 300 MG/10ML solution Infuse 300 mg into a venous catheter See administration instructions. Does 2 times yearly Active potassium chloride 10 meq extended release oral tablet (12 sources) take 1 tablet by mouth twice daily at mealtime potassium chloride CR (Klor-Con) 10 MEQ ER tablet TAKE ONE TABLET BY MOUTH TWICE A DAY WITH FOOD FOR 30 DAYS Active rosuvastatin calcium 10 mg oral tablet (12 sources) HMG-CoA Reductase Inhibitor take 1 tablet by mouth in the morning rosuvastatin (Crestor) 10 MG tablet Take 10 mg by mouth in the morning. Active tiZANidine 4 mg oral tablet (14 sources) Central alpha-2 Adrenergic Agonist Start: End: take 2 tablets by mouth every eight hours for muscle spasms tiZANidine (Zanaflex) 4 MG tablet Indications: Multiple sclerosis (CMS/HCC) Take 2 tablets (8 mg) by mouth every 8 (eight) hours if needed for muscle spasms 540 tablet 2 11/21/2024 Active Start: 09-22-2024 End: 11-21-2024 take 2 tablets by mouth three times daily at bedtime tiZANidine (Zanaflex) 4 MG tablet Indications: Multiple sclerosis (CMS/HCC) TAKE TWO TABLETS BY MOUTH THREE TIMES A DAY ( IN THE MORNING , IN THE EVENING , AND BEFORE BEDTIME ) 540 tablet 09/22/2024 11/21/2024 Discontinued (Reorder) Start: 08-22-2024 End: 11-20-2024 take 2 capsules [...] tabs TID. 540 capsule 08/22/2024 09/22/2024 Discontinued Start: 05-16-2024 End: 08-14-2024 take 2 capsules by mouth in the [...] before bedtime. 2 tabs TID. 540 capsule 05/16/2024 08/14/2024 Active Problems Active Problems Problem Classification Problem Date Documented Da te Episodic/Chronic Acute cerebrovascular disease (14 sources) Cerebellar infarction; Translations: [Cerebral infarction, unspecified] Onset: 04-30-2023 08-29-2024 Chronic Acute myocardial infarction (20 sources) Acute non-ST segment elevation myocardial infarction; Translations: [Non-ST elevation (NSTEMI) myocardial infarction] Onset: 04-30-2023 04-30-2023 Chronic Anxiety disorders (12 sources) Anxiety; Translations: [Anxiety disorder, unspecified] Onset: 11-16-2023 11-16-2023 Chronic Diabetes mellitus without complication (13 sources) Type 2 diabetes mellitus without complications; Translations: [Type 2 diabetes mellitus] Onset: 11-17-2022 11-16-2023 Chronic Essential hypertension (13 sources) Essential (primary) hypertension; Translations: [Hypertensive disorder] Onset: 11-17-2022 04-30-2023 Chronic Multiple sclerosis (20 sources) Multiple sclerosis; Translations: [Acute relapsing multiple sclerosis] Onset: 08-15-2021 Chronic Nutritional deficiencies (13 sources) Vitamin D deficiency, unspecified; Translations: [Vitamin D deficiency] Onset: 11-17-2022 11-16-2023 Chronic Osteoarthritis (20 sources) Osteoarthritis; Translations: [Unspecified osteoarthritis, unspecified site] Onset: 11-16-2023 11-16-2023 Chronic Other circulatory disease (4 sources) Stricture of artery; Translations: [STRICTURE OF ARTERY] Onset: 06-26-2016 Chronic Other gastrointestinal disorders (12 sources) Irritable bowel syndrome; Translations: [Irritable bowel syndrome without diarrhea] Onset: 11-16-2023 11-16-2023 Chronic Residual codes; unclassified (2 sources) Amnesia; Translations: [Other amnesia] 08-29-2024 Episodic Unclassified (2 sources) Unknown / UNK(Unknown) Onset: 06-26-2016 Past or Other Problems Problem Classification Problem Date Documented Da te Episodic/Chronic Conditions associated with dizziness or vertigo (20 sources) Dizziness; Translations: [Dizziness and giddiness] Onset: 08-15-2021 04-30-2023 Episodic Malaise and fatigue (20 sources) Fatigue; Translations: [Other fatigue] Onset: 08-15-2021 08-29-2024 Episodic Nonspecific chest pain (1 source) Chest pain, unspecified; Translations: [CHEST PAIN, UNSPECIFIED] Onset: 06-26-2016 Episodic Other connective tissue disease (12 sources) Muscle pain; Translations: [Myalgia, unspecified site] Onset: 04-16-2022 04-30-2023 Episodic Skin and subcutaneous tissue infections (12 sources) Cellulitis; Translations: [Cellulitis, unspecified] Onset: 05-16-2024 05-16-2024 Episodic Unclassified (1 source) Other general symptoms and signs; Translations: [OTHER GENERAL SYMPTOMS AND SIGNS] Onset: 06-26-2016 Episodic Results Test Name Value Interpretation Reference Range Facility PT - Assessmentson PT - Assessments [id number] 5 [id number]#1 .00CD:127 Normal [facility] Coding Summary.on 11-18-2022 Coding Summary. CD:[id number] G h0bWw+PGhlYWQ+WI2NJIX fX77ihEPuqS5VC2sEUF2Q UZQIHTBPGV8QKK3fqQQ1X CktA1XkduEq VbmsqURnNH36WHs8RSE4e WviHQhsuC6ihNHaO9u6Bk AlHG27nC12YFfkGWGvDrR 3LjZpbjsgbWFy W0ilTcAwvLSnHkt+PHRhY mxlIHdpZHRoPScxMDAlJy QrwMncEX1gHc1lTKFvZZQ vbGxhcHNlOiBj o8ixYSGiSJplSU2ckJzbU 7GnrMA7IXJtp5a0Sf11vY I+GCMgHNT2pYhxLTbjx31 7IcPqf7mvWQX6 pGUyXGvcZDA8D37yw7C9X QCeHKIjQSH1zHU8wI2djK uyavqvL2SciASwXcQ4UOP 4oLVmjA2mbRil bzicnR8rZqw+C83RZQ8SI YXAGL6MDwz9V4KsUazqgG I+JW32CETnYC17jVSgfYT na2mnrYx5GhKh OEDpBVR7iWxfIKbdv6QtF IAvJ80hzISmc1J9ACUxqB bqdRNeNbUjpKL2rW3mZBz ijazwg2fqatbs Bifwn3wuui73mH54J21uH ObiESCyNCR0GAVxKVZjzO sdyi4biO1iEa5+IUafi1u bj7uioFp9VwKb EDPdvyIuwUkgVKH9e6OkZ r17C2ArfDbjl6ZpGuv8pa 57oXTha8B4gQD1FMulXVP zkC7xINvrUoW7 VLBhOwXrcO91hCStEWnoK o2ydOqdfTsvZI5mXTMbpa pxCELqrY0pQHRwsVNepFp vTC7mMGTxnhap v647RjXaJRY8FQDuvVAbQ 9TnsA1vCiOoFSFdROQiG0 XwmFPpEZtaP404GQcvDxW 7UNJzcbHmV0Ko KXZwbPxpEgC5d2E6Qe1Tp 3DxadoaSBP7PAcvERBlRy Y8FkDkKiS6M4RiVxv2JWQ vxOrgGO7qK6Te OWHrdevgsgimuON6OIAiK NXfiF19zZPxXLgsQq6yt8 C8m832IWDqDJFjjG43Mg6 udDogMTBwdCBU tZ2fcjiev9nlwqfzGhQyN PLrHNx2XOm8GDAphZhtJy BgKOS9AiG3BVG8eSMlxY0 pxYoemjiteE0k Oyc+M11xrT7xCQH9UJW0i txsZINbmmMkAD68SL98J7 RyPjwvdGFibGU+PGRpdiB fuHtkOQ8zWoCs w8vry7QnLSrzK8IlVESeY IksYxk8EJQuLVK0lJZ2jP 1wNAYrQAqwf5L5bJA1G2C cwqViun5zb8wg KPEuCNvrK56guHEdb1F2D VPsaKB1WOBomVctCzCnjA 93Oyc+YHXvfKlhi5MaGqb gb6uum9jskBs2 TqHzMEGgcaMsuPfaAPZ8m 8XjRe94E38vZSxuJDNnAK SnSHXxIGCjmMxnim3axU6 wIi8+PGNvbCB3 iFV3tD5xXAPrNgR9DNrfZ 428BoMwyENvRqkwx3zuv9 lmxGa2YtNvBHEsriZsiBd hGNE2y6GePh80 W36nQIljKQEsKNYnLTJpE HPfzVkhur1qtZ1aOl1+PC 7bj6dffi84rI37bKZ+PHR xHKN7uImrZYlc ODVknC6gSJkwGfI3FUHiQ gVyuU88xVEbYFxxWp3jhL yleTcuLG2tNIZbusdzz15 7NrEhh4cuBVLm qCIwSCpeHXH6L23ad0X9U EGgAXYsZZP9rHF2dY5qhN lnbjogbGVmdDsgdmVydGl dLPbwNRsxP162 IHRvcDsnPlBhdGllbnQgT mVqYVw8A5SuHru5UFZjjZ ybOD5ajXMuPSiaXb2msCt czMhfJE7qVFIn kakhb185UhVot0yjPCLhs SQgDGjuCDB6I76ht6X9YY HoWUCyFTL1wUG9hE6ljPb nbjogbGVmdDsg asMgjDmeKFuhWRezZ511B HRvcDsnPkJpcnRoIERhdG Q3XD92RM80fVKsa7Y7wWE 0X1GaIIApqrvr enrfwVK6DQHfRRIilT72T r3gqMpdZs6bSAEjZUS0BH BjeEUbR3ZnuY4pUpQnIKJ eVPCrY7FlwOVp FVezQ758DJcdFnP6UMYjx hUbS8YrTILviSheExV7m2 J5Wk3QQ2J3FM87ZA75iBQ zd7S0nCE5I4Zv SJIbujehwvgrnZP5EIYuQ PZchX79Pw5rqEcoCo8oCX FrGLI5MFIjgTIpH7IupG1 yOiAjMDAwMDAw G1EimZLuEKwiB744GAwvK jY6HHAdskXeT5DpWRFytZ elKcJ7f6M2Tw1HGOl2ZE7 0SE66fZYej1O0 yLG0Z3PgOIFzqeogkwdtz AB2HVXpRWAlnF47Wl8lnF dpEm4qRWDvTOX1WXNxzBF pL4IuuX2lSzSr XIXqJOWhR6MtmABzJWlwZ 193DNhzSsO6BKIopfNpI7 ZlGGJcsVuxKcL5p3R9Ul7 CZPXeDW02YYV5 gOF9JG15BN59K3OyIsyuo GFibGU+PHRhYmxlIHdpZH RoPScxMDAlJyBzdHlsZT0 dDo8tXHKlMRQh eKxcgESgImJmw8wiYVMlY OreOT7wfBauR1AqsHB6MG Vkh4b7Fa44B64bG0WhkVE +LAPacMU0qKB6 zO6yLpWbKvR7RGobS137P xOreHFnOqaht1kpa8ezoH j0HrK6SZCmxqDmdFdiPRP 3x3MgJk57R29j IHdpZHRoPSIxNSUiIHZhb Dpagp5ydL0pFu8+PGNvbC V1bQJ1lG2xZeYaCgK5CFc qH575LjAapAQu Pxhny0rkr3citPu0JuFyC IBitxSrrXjhXXR7v5CrXz 75M6BmrMqbe0XpIxo3bu7 7yOHfd1S7aJG9 N5LcCOIfqppalIJrgHkxQ N5zPZNxdibjGCMaqK1uOK IaM6p6GvCxTbY3VAdnC0G felG0GRKljMPl EMzzVFE3S74lt2V5UBCaX IRsWHO9lTH2gM4xnDiegy ogbGVmdDsgdmVydGljYWw oTNpwV736AEUz qTxmVXHlqS9zHIAprQKax FtrVY8iDYFgcesaSeOXFZ jILVKWM4LIVbBUQB48SF4 8kRPcx1D5yGK4 G0FxZHEntifylzbgzLC5B DEaPARqxC92nJQhMJfgIm 2wx4Q2g456SKRbUNKedV7 8Iq3zjJefYBHq sVGFpQ3pcxidj9cihtdbL nKrHFDtQRa7XTf8TLZgiL okPiLnKZP9KcQ4ECE5vPN syU9wkEjdtzyc nD4tAsw+BBVrPIqkSOr3I TwvdGQ+GOQmILQ3cZorZS ajRVFqeO6iICEoN0w9GbL fBrO2MOefU1Lb LWHcregnJe90pR5mFnDxL vZ0ROkbA8SisgJ2NLZtnB VdMWajPOG0F36af9W2EYQ fQBFxGAF3iOR5 cQ6wuOxjfjwshKZjmVwys iBunTbuQHwmOIebU419OS RvcDsnPjUxIFllYXJzPC9 5NV13oSLhw2V9 gUR5J0EfWZBqulpdsfrss AB5UEOnQXVteL80yKJcFY ihNh8oq5A6p285BHImCZW ymR91Jr6abJkl EUKfhUXUsR3dcurcg2hyw znuUgWfJKYbZVh6ZNe4VL XeeAtuSvXvEOU9ZxC3MKY 0xEKomA4apOpl jtaogN6yMgy+RmVtYWxlP I12PE71mYWat8C5kVQ8O4 LtSHWsfsxwbhikkPW5RHX oYTPvxL17wZOo ZXhcPn0rq5R1d704HBFuT YJtuB22Au1duMtuNVQdrO PDhK1pbosxm0zdcsztYdM cZARrRQd7DKq0 CBTviCmgOyGpRSL1AtY3J JD5xZAsrL9biAaucihuiM 9wOyc+YlJukWOppX1yNC5 9RQ76Y0ZiTfvx dGFibGU+PHRhYmxlIHdpZ HRoPScxMDAlJyBzdHlsZT 3sYc7fHQCtRVNboEbnuWO bLqUbw8tfEXCg UQlqRH8kcYrrG8PhmVA0P MYfd7t3Dv09B59nL1ZneR A+NZUdrTD0cZW0zB1dGpE fFwF2IPmtO265 IyDzxJBeNjrua5gca6boq Qt1FmVmGDVpvtKoyXwhEM F2l6QzIw42J76cFNhqWJF oPSIyMCUiIHZh xAbrtc6zlT4vVh7+PGNvb EX8rGW3sU8aBaDwOtD3YB cjX366DnXrzBYjKilqU25 jP8UmfCG+PHRy Zlv8DWVpyTtxIO8sfBMdV DgtDk6kKZM4MkOqCuEpNO kkD4VeDSVzjtedoiwnkNU 8GPYjSLVzzD36 Gx6ykNutVh7zGODvSER6A ANthIEaZ3NtfF2kBsMqBY LdOBBiS3JsnGMrBQanU66 8RZftCsB4JPJm baTpF8QrVAPgmLpePbQ3r 1X0Oz9NoExccJImIE4aSl UzJQz2C6ZtMqh4JJFuxEx lIT3zdVIvUEam Ol2kqUhkgDqmMX5iBSBpt zpwm230AoVqy1dvDCOxrO CtDHbfQVD5B70jl0V5BCX nYVRgMCV1kQK7 wL0roKhxakibbZBsnMdjf xPylKcgOFioLRqbR310IO ZpkUaeZjFCZpq3T7UvTcq 2VGUahYviGZ4s cDHmYKicUb8tiOdrwUtgK L7fJVSgvtycm545BoNlk3 lgCVWruWWmRCvdWEU7U13 js3F4MDIiMUEb RYR4vKC4tS3tsOgbxuedh GVmdDsgdmVydGljYWwtYW cfV721ALXhwRcrGt5XMwo 9U2JoPsd9GVYe gBjuST2hkXKrDWxhUw4vq KxbgDrbXN6ePUZsgavoj9 60VgJdm8xvHBDamOPcSHi bBYL4T56gh3Q9 QXSsUBHdCMM1gUV9oP0do GlnbjogbGVmdDsgdmVydG zbNOizEJeaP224FVDaeRj nPlBheWVyOjwv dGQ+QE12hj93A0QdGdbxZ dc4YTQpBPG7fBJ3jV9uFF FkZBpsm4U3xGZ9F6XktfM lbt5vo0qaSEUq ZTog (more content not included)... Normal [facility] Insurance Correspondenceon 0 11-18-2022 Insurance Correspondence [id number]# 1.00CD:127 Normal [facility] Consent for Treatmenton 11-02 Consent for Treatment [id number]#1 .00CD:127 Normal [facility] PT - Orderson 11-17-2022 PT - Orders [id number]#1 .00CD:127 Normal [facility] CBC AUTO DIFFon 11-04-2022 BASO # 0.0 103/ul Normal 0.0-0.1 [facility] Comment on above: Performed By: #### C BC ####[facility] [address] [place] [address]Dr. Linnea Jane Basophils/100 WBC (Bld) 0.3 % Normal 0.2-2.0 [facility] Comment on above: Performed By: #### C BC ####[facility] [address] [place], [place] [address]Dr. Linnea Jane EO # 0.2 103/ul Normal 0.0-0.7 [facility] Comment on above: Performed By: #### C BC ####[facility] [address] [place], [place] [address]Dr. Linnea Jane Eosinophils/100 WBC (Bld) 3.3 % Normal 0.9-7.0 [facility] Comment on above: Performed By: #### C BC ####[facility] [address] [place], [place] [address]Dr. Linnea Jane Erythrocyte distribution width (RBC) [Ratio] 13.7 % Normal 11.0-15.0 [facility] Comment on above: Performed By: #### C BC ####[facility] [address] [place], [place] [address]Dr. Linnea Jane Hematocrit (Bld) [Volume fraction] 37.1 % Normal 36.0-48.0 [facility] Comment on above: Performed By: #### C BC ####[facility] [address] [place], [place] [address]Dr. Dianebelem Jane Hemoglobin (Bld) [Mass/Vol] 12.2 g/dL Normal 12.0-16.0 [facility] Comment on above: Performed By: #### C BC ####[facility] [address] [place], [place] [address]Dr. Linnea Jane IG # 0.06 10e3/ul Critically high 0.00-0.03 [facility] Comment on above: Performed By: #### C BC ####[facility] [address] [place], [place] [address]Dr. Linnea Jane IG % 1.0 % Critically high 0.0-0.[address] [facility] Comment on above: Performed By: #### C BC ####[facility] [address] [place], [place] [address]Dr. Linnea Jane LYMPH # 0.4 103/ul Critically low 1.2-3.8 [facility] Comment on above: Performed By: #### C BC ####[facility] [address] [place] [address]Dr. Linnea Jane Lymphocytes/100 WBC (Bld) 6.8 % Critically low 20.5-60.0 [facility] Comment on above: Performed By: #### C BC ####[facility] [address] [place], [place] [address]Dr. Linnea Jane MANUAL DIFF REQ NO Normal [facility] Comment on above: Performed By: #### C BC ####[facility] [address] [place] [address]Dr. Linnea Jane MCH (RBC) [Entitic mass] 28.4 pg Normal 26.7-34.0 [facility] Comment on above: Performed By: #### C BC ####[facility] [address] [place], [place] [address]Dr. Linnea Jane MCHC (RBC) [Mass/Vol] 32.9 g/dL Normal 29.9-35.2 [facility] Comment on above: Performed By: #### C BC ####[facility] [address] [place], [place] [address]Dr. Linnea Jane MCV (RBC) [Entitic vol] 86.5 fL Normal 81.0-99.0 [facility] Comment on above: Performed By: #### C BC ####[facility] [address] [place], [place] [address]Dr. Linnea Jane MONO # 0.7 103/ul Normal 0.3-0.8 [facility] Comment on above: Performed By: #### C BC ####[facility] [address] [place], [place] [address]Dr. Linnea Jane Monocytes/100 WBC (Bld) 11.3 % Normal 1.7-12.0 [facility] Comment on above: Performed By: #### C BC ####[facility] [address] [place], [place] [address]Dr. Linnea Jane NEUT # 4.5 103/ul Normal 1.4-6.5 [facility] Comment on above: Performed By: #### C BC ####[facility] [address] [place] [address]Dr. Linnea Buck Neutrophils/100 WBC (Bld) 77.3 % Critically high 43.0-75.0 [facility] Comment on above: Performed By: #### C BC ####[facility] [address] [place] [id number]. Dianebelem Buck Platelet mean volume (Bld) [Entitic vol] 9.0 fL Critically low 9.5-13.5 [facility] Comment on above: Performed By: #### C BC ####[facility] [address] [place] [address]Dr. Linnea Jane PLT 429 103/ul Normal 150-450 [facility] Comment on above: Performed By: #### C BC ####[facility] [address] [place] [id number]. Linnea Jane RBC 4.29 106/ul Normal 4.20-5.40 [facility] Comment on above: Performed By: #### C BC ####[facility] [address] [place] [id number]. Linnea Jane WBC 5.8 103/ul Normal 4.0-11.0 [facility] Comment on above: Performed By: #### C BC ####[facility] [address] [place] [id number]. Linnea Jane FREE T3on 11-04-2022 FREE T3 2.58 pg/mlL Normal 2.18-3.98 [facility] Comment on above: Performed By: #### C MP, FT3, LIPID, T4, TSH #### [facility] [address], [place] [address] Dr. Linnea Jane GLYCOHEMOGLOBIN A1Con 2022 ADA RECOMMENDATION SEE BELOW Normal [facility] Comment on above: Result Comment: ADA RECOMMENDED LIMIT 4.0 - 6.0 ADA THERAPEUTIC TARGET < 7.0 ACTION SUGGESTED > 7.0 Performed By: #### A 1C #### [facility] [address] [address] [address] Linnea Jane Glucose [Mass/Vol] 151 mg/dL Normal [facility] Comment on above: Performed By: #### A 1C #### [facility] [address] [address] [address] Linnea Jane HbA1c (Bld) [Mass fraction] 6.9 % Critically high 4.5-6.2 [facility] Comment on above: Performed By: #### A 1C #### [facility] [address] [place] [address] Dr. Linnea Jane LIPID PROFILEon 11-04-2022 CHOL-HDL RATIO NORM SEE BELOW Normal [facility] Comment on above: Result Comment: 3.3 - 4.4 LOW RISK 4.4 - 7.1 AVERAGE RISK 7.1 - 11.0 MODERATE RISK >11.0 HIGH RISK Performed By: #### C MP, FT3, LIPID, T4, TSH #### [facility] [address] [address] [address] Linnea Jane Cholesterol [Mass/Vol] 174 mg/dL Normal <=200 [facility] Comment on above: Performed By: #### C MP, FT3, LIPID, T4, TSH #### [facility] [address] [place] [address] Dr. Linnea Jane Cholesterol in HDL [Mass/Vol] 74 mg/dL Critically high 40-60 [facility] Comment on above: Performed By: #### C MP, FT3, LIPID, T4, TSH #### [facility] [address] [place] [address] Dr. Linnea Jane Cholesterol in LDL [Mass/Vol] 82.2 mg/dL Normal [facility] Comment on above: Performed By: #### C MP, FT3, LIPID, T4, TSH #### [facility] [address] [place] [address] Dr. Linnea Jane Cholesterol.total/Cho lesterol in HDL [Mass ratio] 2.4 {ratio} Normal [facility] Comment on above: Performed By: #### C MP, FT3, LIPID, T4, TSH #### [facility] [address] [address] [address] Linnea Jane HDL NORMAL > or = 60 mg/dl - LO W CARDIOVASCULAR RISK <40 mg/dl - HIGH CARDIOVASCULAR RISK Normal [facility] Comment on above: Performed By: #### C MP, FT3, LIPID, T4, TSH #### [facility] [address] [address] [address] Linnea Jane LDL CALC NORMAL SEE BELOW Normal [facility] Comment on above: Result Comment: <100 mg/dl OPTIMAL 100 - 129 mg/dl NEAR OR ABOVE OPTIMAL 130 - 159 mg/dl BORDERLINE HIGH 160 - 189 mg/dl HIGH >190 mg/dl VERY HIGH Performed By: #### C MP, FT3, LIPID, T4, TSH #### [facility] [address] [address] [address] Linnea Jane Triglyceride [Mass/Vol] 89 mg/dL Normal <=150 [facility] Comment on above: Performed By: #### C MP, FT3, LIPID, T4, TSH #### [facility] [address] [address] [address] Linnea Jane VLDL CALC 17.8 mg/dL Normal [facility] Comment on above: Performed By: #### C MP, FT3, LIPID, T4, TSH #### [facility] [address] [address] [address] Linnea Jane PROF 14(COMP METB)on 023 Albumin [Mass/Vol] 3.2 g/dL Critically low 3.4-5.0 [facility] Comment on above: Performed By: #### C MP, FT3, LIPID, T4, TSH #### [facility] [address] [address] [address] Linnea Jane Albumin/Globulin [Mass ratio] 1.0 {ratio} Normal [facility] Comment on above: Performed By: #### C MP, FT3, LIPID, T4, TSH #### [facility] [address] [id number] Dr. Linnea Jane ALP [Catalytic activity/Vol] 77 U/L Normal 46-116 [facility] Comment on above: Performed By: #### C MP, FT3, LIPID, T4, TSH #### [facility] [address] [place] [address] Dr. Linnea Jane ALT [Catalytic activity/Vol] 36 U/L Normal 14-59 [facility] Comment on above: Performed By: #### C MP, FT3, LIPID, T4, TSH #### [facility] [address] [place] [address] Dr. Linnea Jane Anion gap [Moles/Vol] 9.7 mmol/L Normal [facility] Comment on above: Performed By: #### C MP, FT3, LIPID, T4, TSH #### [facility] [address] [place] [address] Dr. Linnea Jane AST [Catalytic activity/Vol] 20 U/L Normal 15-37 [facility] Comment on above: Performed By: #### C MP, FT3, LIPID, T4, TSH #### [facility] [address] [place] [address] Dr. Linnea Jane Bilirubin [Mass/Vol] 0.5 mg/dL Normal 0.2-1.0 [facility] Comment on above: Performed By: #### C MP, FT3, LIPID, T4, TSH #### [facility] [address] [place] [address] Dr. Linnea Jane Calcium [Mass/Vol] 9.3 mg/dL Normal 8.5-10.1 [facility] Comment on above: Performed By: #### C MP, FT3, LIPID, T4, TSH #### [facility] [address] [place] [address] Dr. Linnea Jane Chloride [Moles/Vol] 104 mmol/L Normal 98-107 [facility] Comment on above: Performed By: #### C MP, FT3, LIPID, T4, TSH #### [facility] [address] [place] [address] Dr. Linnea Jane CO2 [Moles/Vol] 31.7 mmol/L Normal 21.0-32.0 [facility] Comment on above: Performed By: #### C MP, FT3, LIPID, T4, TSH #### [facility] [address] [place] [address] Dr. Linnea Jane Creatinine [Mass/Vol] 0.63 mg/dL Normal 0.55-1.02 [facility] Comment on above: Performed By: #### C MP, FT3, LIPID, T4, TSH #### [facility] [address] [place] [address] Dr. Linnea Jane EGFR-AF YEMENI >60 Normal >=60 [facility] Comment on above: Performed By: #### C MP, FT3, LIPID, T4, TSH #### [facility] [address] [place] [address] Dr. Linnea Jane EGFR-NON AF YEMENI >60 Normal >=60 [facility] Comment on above: Performed By: #### C MP, FT3, LIPID, T4, TSH #### [facility] [address] [place] [address] Dr. Linnea Jane Globulin (S) [Mass/Vol] 3.1 g/dL Normal [facility] Comment on above: Performed By: #### C MP, FT3, LIPID, T4, TSH #### [facility] [address] [place] [address] Dr. Linnea Jane Glucose [Mass/Vol] 131 mg/dL Critically high 74-106 [facility] Comment on above: Performed By: #### C MP, FT3, LIPID, T4, TSH #### [facility] [address] [place] [address] Dr. Linnea Jane Potassium [Moles/Vol] 3.4 mmol/L Critically low 3.5-5.1 [facility] Comment on above: Performed By: #### C MP, FT3, LIPID, T4, TSH #### [facility] [address] [place] [address] Dr. Linnea Jane Protein [Mass/Vol] 6.3 g/dL Critically low 6.4-8.2 [facility] Comment on above: Performed By: #### C MP, FT3, LIPID, T4, TSH #### [facility] [address] [place] [address] Dr. Linnea Jane Sodium [Moles/Vol] 142 mmol/L Normal 136-145 [facility] Comment on above: Performed By: #### C MP, FT3, LIPID, T4, TSH #### [facility] [address] [place] [address] Dr. Linnea Jane Urea nitrogen [Mass/Vol] 22.0 mg/dL Critically high 7.0-18.0 [facility] Comment on above: Performed By: #### C MP, FT3, LIPID, T4, TSH #### [facility] [address] [place] [address] Dr. Linnea Jane Urea nitrogen/Creatinine [Mass ratio] 34.9 mg/mg Normal [facility] Comment on above: Performed By: #### C MP, FT3, LIPID, T4, TSH #### [facility] [address] [place] [address] Dr. Linnea aJne T4on 11-04-2022 T4 [Mass/Vol] 8.50 ug/dL Normal 4.80-13.90 [facility] Comment on above: Performed By: #### C MP, FT3, LIPID, T4, TSH #### [facility] [address] [place] [address] Dr. Linnea Jane TSHon 11-04-2022 TSH 0.590 uIU/mL Normal 0.358-3.740 [facility] Comment on above: Performed By: #### C MP, FT3, LIPID, T4, TSH #### [facility] [address] [place] [address] Dr. Linnea Jane VITAMIN D 25 OHon 11-04-2022 VIT D 25-OH 140.4 ng/mL Normal [facility] Comment on above: Performed By: #### V ITAD #### [facility] [address] [place] [address] Dr. Linnea Jane VIT D RANGES SEE BELOW Normal [facility] Comment on above: Result Comment: <20 ng/mL Vit D deficient 20 - <30 ng/mL Vit D insufficient 30 - 100 ng/mL Vit D sufficient >100 ng/mL Potential Toxicity Performed By: #### V ITAD #### [facility] [address], [place] [address] Dr. Linnea Jane HEPATITIS B CORE, IgMon Hep B Core Ab, IgM Negative Normal Negative [facility] Comment on above: Performed By: #### H EPBCOR #### [facility] [address], [place] [address] Dr. Linnea Jane MRI BRAIN WO W [...] by: NEGRO BLACKMON Date: 2022-09-17 07:22 Normal [facility] XR FOREIGN BODY EYEon 2021 XR FOREIGN BODY EYE EXAMINATION: XR FOREIGN BODY EYE HISTORY: Foreign body in eye ; pre-MRI COMPARISON: No relevant comparison available. FINDINGS: ORBITS: Negative for a metallic foreign body. OTHER: Negative. IMPRESSION: 1. No metallic foreign body within the orbits. Electronically authenticated by: NEGRO BLACKMON Date: 2022-09-16 15:08 Normal [facility] Vital Signs Date Time Vital Sign Value Performing Clinician Faci lity 02-22-2025 14:43-0400 Body height 160 cm Marshal Dodge MD Work Phone: [facility] 02-22-2025 14:43-0400 Body mass index (BMI) [Ratio] 18.6 kg/m2 Marshal Dodge MD Work Phone: [facility] 02-22-2025 14:43-0400 Body weight 47.63 kg Marshal Dodge MD Work Phone: [facility] Encounters Encounter Date Encounter Type Care Provider Facility Start: 03-13-2025 End: 03-13-2025 Refcarina Romano NP Work Phone: [facility] Comment on above: Multiple sclerosis ( CMS/HCC); Acute relapsing multiple sclerosis (CMS/HCC) Start: 02-22-2025 End: 02-22-2025 Office outpatient visit 25 minutes Marshal Dodge MD Work Phone: [facility] Comment on above: Vertigo of central o rigin (Primary Dx); Multiple sclerosis (CMS/HCC); Acute relapsing multiple sclerosis (CMS/HCC) Start: 02-22-2025 End: 02-22-2025 ambulatory MARSHAL DODGE Not Available Start: 02-22-2025 End: 02-22-2025 Bamboo flowsheet Marshal Dodge MD Work Phone: [facility] Start: 02-22-2025 End: 02-22-2025 Bamboo flowsheet Marshal Dodge MD Work Phone: [facility] Start: 12-13-2024 End: 12-14-2024 Telephone encounter Marshal Dodge MD Work Phone: [facility] Start: 11-23-2024 End: 11-23-2024 Office outpatient visit 25 minutes Marshal Dodge MD Work Phone: [facility] Comment on above: Vertigo of central o rigin (Primary Dx); Acute relapsing multiple sclerosis (CMS/HCC) Start: 11-23-2024 End: 11-23-2024 ambulatory MARSHAL DODGE Not Available Start: 11-23-2024 End: 11-23-2024 Bamboo flowsheet Marshal Dodge MD Work Phone: [facility] Start: 11-23-2024 End: 11-23-2024 Bamboo flowsheet Marshal Dodge MD Work Phone: [facility] Start: 11-21-2024 End: 11-21-2024 Refill Dee Farrar LPN [facility] 210 Comment on above: Multiple sclerosis ( CMS/HCC) Start: 09-21-2024 End: 09-22-2024 Refill Marshal Dodge MD Work Phone: [facility] Comment on above: Multiple sclerosis ( CMS/HCC) Start: 08-29-2024 End: 08-29-2024 Orders Only Federica Romano NP Work Phone: [facility] 210 Comment on above: Cerebellar infarctio n (CMS/HCC) (Primary Dx); Other fatigue; Memory loss Start: 07-26-2024 End: 07-26-2024 Refill Marshal Dodge MD Work Phone: [facility] Comment on above: Multiple sclerosis ( CMS/HCC) (Primary Dx) Start: 06-15-2024 End: 06-15-2024 ambulatory CARLOS MARTIN Not Available Start: 05-16-2024 End: 05-16-2024 ambulatory MARSHAL DODGE Not Available Start: 11-17-2022 Encounter for genera l adult medical examination without abnormal findings DR KRISHAN BURCIAGA [facility] Start: 11-17-2022 End: 02-16-2023 ambulatory Marshal Dodge Facility:[facility] Start: 11-04-2022 End: 11-05-[address] KRISHAN BURCIAGA Facility: Start: 11-04-2022 End: 11-05-2022 Encounter for general adult medical examination without abnormal findings DR KRISHAN BURCIAGA Facility: Start: 10-09-2022 End: 10-10-[address] DOCTOR WINKLER Facility:[facility] Start: 09-16-2022 End: 09-17-[address] DOCTOR WINKLER Facility:[facility] Start: 12-31-[address] KRISHAN BURCIAGA Facility :[facility] Start: 06-26-2016 End: 06-27-2016 Ambulatory LELE BAZAN Facility:[facility] Plan of Treatment Date Care Activity Detail Author Start: 05-24-2025 End: 05-24-2025 Patient encounter procedure 05/24/2025 11:00 AM EDT Office Visit [facility] [address] [facility] [address] [place] [address] Marshal Dodge MD [address] [place]ios [address] [place] [address], [place] [id number] [facility] Start: 02-22-2025 End: 02-22-2025 Patient encounter procedure [facility] Comment on above: Arrived Start: 11-23-2024 End: 11-23-2024 Patient encounter procedure [facility] Comment on above: Arrived Start: 08-22-2024 End: 08-22-2024 Patient encounter procedure 08/22/2024 2:20 PM EDT Office Visit [facility] [address] [facility] [address] [place] [address] Marshal Dodge MD [address] [place]ios [address] [place] [id number] [facility] Start: 07-03-2024 Influenza vaccination Influenza Vacc ine (#1) [facility] Start: 2011 Screening for malign ant neoplasm of breast Mammogram [facility] Start: 2001 Screening for malign ant neoplasm of cervix [facility] Start: 1992 Screening for malign ant neoplasm of cervix Pap Smear [facility] Start: 1971 Screening for malign ant neoplasm of colon [facility] Immunizations Immunization Date Immunization Notes Care Provider Fa cility 08-26-2024 influenza virus vacc ine, unspecified formulation Marshal Dodge MD Work Phone: [facility] 09-03-2022 influenza virus vacc ine, unspecified formulation Marshal Dodge MD Work Phone: [facility] Payers Date Payer Category Payer Private Health Insurance [id number] 2019 Medicaid [id number] 1971 Unknown [id number] 2.16.84 [id number] 1971 Unknown [id number] 2.16.84 [id number] 1971 Unknown [id number] 2.16.84 [id number] 1971 Unknown [id number] 2.16.84 [id number] 1971 Unknown [id number] 2.16.8 [id number] 1971 Unknown [id number] 2.16.84 [id number] 1971 Unknown [id number] 2.16.84 [id number] 1971 Unknown [id number] 2.16.84 [id number] 1971 Unknown [id number] 2.16.84 [id number] 1958 Medicaid [id number] 1958 Medicare [id number] 1958 Self-pay Medicare [id number] Social History Date Type Detail Facility Start: 04-30-2023 Tobacco smoking stat [facility] Never smoked tobacco [facility] Start: 04-30-2023 Tobacco use and exposure Smoke less tobacco non-user [facility] Start: 06-15-2024 Alcoholic beverage intake Life time non-drinker (finding) [facility] Start: 06-15-2024 History of Social function [facility] Start: 06-15-2024 Tobacco use panel [facility] Start: 1971 Sex assigned at Not on file [facility] Medical Equipment Procedure Code Equipment Code Equipment Origin al Text Equipment Identifier Dates 1 each by Other route if needed. Start: 11-07-2022 Clinical Notes 07-26-2024 to 03-13-2025 Telephone Encounter - Federica Romano NP - 03/13/2025 9:56 AM EDTTelephone Encounter - Federica Romano NP - 03/13/2025 9:56 AM EDTBgisela Dodge MD - 02/22/2025 2:40 PM EDT Note Date & Type Note Facility 03-13-2025 Telephone encounter Note Patient calls for Acthar refill. I sent to [facility]? She was asking for call back. [facility] 03-13-2025 Miscellaneous Notes Patient calls for Acthar refill. I sent to [facility]? She was asking for call back. documented in this encounter [facility] 02-22-2025 History of Present illness Narrative Images from the original note were not included. Patient states that she is currently doing Acthar gel Injections and on day 8. Patient has no new or worsening MS symptoms and stable on Ocrevus infusions. Dexamethasone and fluconazole is needing refills sent to pharmacy. CHIEF COMPLAINT REASON FOR VISIT : HPI: Jami Connors is a 54 y.o. female who presents for CURRENT MEDICATIONS: ALLERGIES/DISCONTINUE MEDICATIONS Current Outpatient Medications Medication Instructions Accu-Chek Guide test strip 1 each, Other, As needed Accu-Chek Softclix Lancets lancets 1 each, Other, As needed Acthar 80 Units, Intramuscular, Daily biotin 10 mg, Oral, Every 12 hours busPIRone (BUSPAR) 7.5 mg, Oral, 3 times daily carvedilol (COREG) 12.5 mg, Oral, 3 times daily cholecalciferol (Vitamin D-3) 1.25 MG (74860 UT) capsule 1 capsule, Oral, Weekly cloNIDine (Catapres-TTS) 0.2 MG/24HR 1 patch, Transdermal, Weekly dexAMETHasone (Decadron) 2 MG tablet TAKE THREE TABLETS BY MOUTH DAILY FOR 3 DAYS, TWO TABLETS FOR 3 DAYS, THEN ONE TABLET FOR 3 DAYS AND THEN STOP (9 DAYS TOTAL) ferrous sulfate 325 mg, Oral, Daily with breakfast fesoterodine ER (TOVIAZ) 4 mg, Oral, Daily fluconazole (Diflucan) 200 MG tablet TAKE 1 TABLET (200 MG) BY MOUTH IN THE MORNING FOR 9 DAYS. meclizine (Antivert) 25 MG tablet TAKE 1 TABLET (25 MG) BY MOUTH 3 (THREE) TIMES A DAY NEEDED FOR DIZZINESS. Ocrevus 300 mg, Intravenous, See admin instructions, Does 2 times yearly potassium chloride CR (Klor-Con) 10 MEQ ER tablet TAKE ONE TABLET BY MOUTH TWICE A DAY WITH FOOD FOR 30 DAYS rosuvastatin (CRESTOR) 10 mg, Oral, Daily tiZANidine (ZANAFLEX) 8 mg, Oral, Every 8 hours PRN Allergies Allergen Reactions Atorvastatin Other Reaction(s): Myalgias (Muscle Pain) Hydralazine Unknown Other Reaction(s): Tachycardia Penicillins Unknown Other Reaction(s): Not available Sulfa Antibiotics Medications Discontinued During This Encounter Medication Reason dexAMETHasone (Decadron) 2 MG tablet Reorder fluconazole (Diflucan) 200 MG tablet Reorder PAST MEDICAL HISTORY: SURGICAL/SOCIAL/FAMILY HISTORY DEPRESSION SCREEN: Past Medical History: Diagnosis Date Acute relapsing multiple sclerosis (CMS/HCC) Cerebellar infarction (CMS/HCC) Dizziness History of being hospitalized 04/2021 blood pressure Hypertension (CMS/HCC) Incontinence Myalgia Weakness Weakness of limb No past surgical history on file. Social History Tobacco Use Smoking status: Never Smokeless tobacco: Never Substance Use Topics Alcohol use: Never Drug use: Never No family history on file. Depression: Not on file REVIEW OF SYMPTOMS: Review of Systems Const: Denies appetite change, fever, chills. Allergy: Denies medication reaction. Ocular: Denies visual acuity change. ENT: Denies hearing change. Endoc: Denies weight loss. Resp: Denies dyspnoea, wheezing. Cardiac: Denies angina, palpitations. GI: Denies nausea, vomiting. Haem: Denies bleeding. : Denies incontinence. MSK: Denies arthralgias, joint oedema. Derm: Denies rash, hair loss. Neuro: Denies ataxia, tremor. Also see HPI for elements of ROS documented therein and for details of positive findings, which shall supersede the foregoing. OBJECTIVE: 02/22/2025 2:43 PM 06/15/2024 1:03 PM 05/16/2024 9:42 AM Vitals BMI 18.6 kg/m2 22.67 kg/m2 22.67 kg/m2 BSA (m2) 1.45 m2 1.61 m2 1.61 m2 Systolic 130 138 Diastolic 78 86 Heart Rate 100 SpO2 98 % Resp 16 Height (in) 5' 3 5' 3 5' 3 Weight (lb) 105 128 128 Visit Report Report Report Report EXAM: Neurological Exam GENERAL EXAMINATION Appearance: in no acute distress, well developed, well nourished. Head: normocephalic, atraumatic. Eyes: pupils equal, round, reactive to light and accommodation. Ears: normal. Mouth: mucosa moist. Throat: clear. Neck: neck supple, full range of motion, no cervical lymphadenopathy. Skin: no suspicious lesions, warm and dry. Heart: no murmurs, regular rate and rhythm, S1, S2 normal. Lungs: clear to auscultation bilaterally. Abdomen: normal, bowel sounds present, soft, nontender, nondistended. Extremities: no clubbing, cyanosis, or edema. NEUROLOGICAL EXAMINATION Mental Status: The patient is alert and oriented to person, place, and time. Except as noted, thought content, form, and comprehension was normal. Phonation, articulation, resonance, and prosody are normal. Cranial Nerves: Pupils were 4.0 millimeters, equal, round, and reactive to light and accommodation, both directly and consensually. Visual evans were full by confrontation. There was no ptosis; extra-ocular movements were full; and there was no nystagmus. Funduscopic exam is normal. Masseters are of normal strength. Facial movement is normal. Hearing is grossly intact. There is no dysarthria. The gag reflex is equal bilaterally. Sternocleidomastoids and trapezii are of normal strength. The tongue protrudes in the midline. Motor: Muscle testing was performed in all four extremities, including at least supply clerk, finger abductors, biceps, triceps, deltoid, toe flexors and extensors, tibialis anterior, triceps surae, quadriceps femoris, biceps femoris, and iliopsoases. Tone is normal. Muscle bulk is normal. Fasciculations are not seen . Pronator drift was not evident. Sensory: Sensation to touch, temperature, and vibration was normal in the arms, legs and face. Romberg is negative. Reflexes: Biceps, triceps, brachioradialis are 2/4 bilaterally. Patellar and Achilles reflexes are 2/4 bilaterally. Plantar responses were flexor bilaterally. Coordination: Dysmetria and dysdiadochokinesia are absent. Tremor is absent; dystonia is absent; chorea is absent. Gait And Station: Station and gait are normal. Apraxia and spasticity are not evident. Arm swing is normal. Toe, heel, and tandem walking are performed without difficulty. Musculoskeletal: Trigger-point tenderness was absent. There is no spasm of the trapezii or paraspinals. PROCEDURE: NONE ASSESSMENT AND PLAN: Diagnoses and all orders for this visit: Vertigo of central origin: -trial on Cyproheptadine. -I will start the patient on Cyproheptadine 4mg for both allergic rhinitis, as well as to see if there is a central component versus a peripheral component to the patient's vertigo. Multiple sclerosis (CMS/HCC) - dexAMETHasone (Decadron) 2 MG tablet; TAKE THREE TABLETS BY MOUTH DAILY FOR 3 DAYS, TWO TABLETS FOR 3 DAYS, THEN ONE TABLET FOR 3 DAYS AND THEN STOP (9 DAYS TOTAL) Acute relapsing multiple sclerosis (CMS/HCC) - fluconazole (Diflucan) 200 MG tablet; TAKE 1 TABLET (200 MG) BY MOUTH IN THE MORNING FOR 9 DAYS. -I will arrange for physical therapy for gait assessment and treatment of balance difficulties to improve fall risk documented in this encounter [facility] 12-14-2024 Telephone encounter Note Insurance is questioning dose when they run her dose it is over the maximum dose and we need to call them and do an override to approve the dose so they can administer the medication. She is emailing me the verbage they want. [facility] Work Phone: 12-14-2024 Miscellaneous Notes Insurance is questioning dose when they run her dose it is over the maximum dose and we need to call them and do an override to approve the dose so they can administer the medication. She is emailing me the verbage they want. Hans from [facility] left message requesting call back regarding patient. [phone] documented in this encounter [facility] 12-13-2024 Telephone encounter Note Hans from [facility] left message requesting call back regarding patient. [phone] [facility] 11-23-2024 History of Present illness Narrative Images from the original note were not included. CHIEF COMPLAINT REASON FOR VISIT : HPI: Jami Connors is a 54 y.o. female who presents for follow up for MS and she has missed her most recent ocrevus due to insurance CURRENT MEDICATIONS: ALLERGIES/DISCONTINUE MEDICATIONS Current Outpatient Medications Medication Instructions Accu-Chek Guide test strip 1 each, Other, As needed Accu-Chek Softclix Lancets lancets 1 each, Other, As needed Acthar 80 Units, Intramuscular, Daily biotin 10 mg, Oral, Every 12 hours busPIRone (BUSPAR) 7.5 mg, Oral, 3 times daily carvedilol (COREG) 12.5 mg, Oral, 3 times daily cholecalciferol (Vitamin D-3) 1.25 MG (10920 UT) capsule 1 capsule, Oral, Weekly cloNIDine (Catapres-TTS) 0.2 MG/24HR 1 patch, Transdermal, Weekly dexAMETHasone (Decadron) 2 MG tablet TAKE THREE TABLETS BY MOUTH DAILY FOR 3 DAYS, TWO TABLETS FOR 3 DAYS, THEN ONE TABLET FOR 3 DAYS AND THEN STOP (9 DAYS TOTAL) ferrous sulfate 325 mg, Oral, Daily with breakfast fesoterodine ER (TOVIAZ) 4 mg, Oral, Daily fluconazole (Diflucan) 200 MG tablet TAKE 1 TABLET (200 MG) BY MOUTH IN THE MORNING FOR 9 DAYS. meclizine (Antivert) 25 MG tablet TAKE 1 TABLET (25 MG) BY MOUTH 3 (THREE) TIMES A DAY NEEDED FOR DIZZINESS. Ocrevus 300 mg, Intravenous, See admin instructions, Does 2 times yearly potassium chloride CR (Klor-Con) 10 MEQ ER tablet TAKE ONE TABLET BY MOUTH TWICE A DAY WITH FOOD FOR 30 DAYS rosuvastatin (CRESTOR) 10 mg, Oral, Daily tiZANidine (ZANAFLEX) 8 mg, Oral, Every 8 hours PRN Allergies Allergen Reactions Atorvastatin Other Reaction(s): Myalgias (Muscle Pain) Hydralazine Unknown Other Reaction(s): Tachycardia Penicillins Unknown Other Reaction(s): Not available Sulfa Antibiotics There are no discontinued medications. PAST MEDICAL HISTORY: SURGICAL/SOCIAL/FAMILY HISTORY DEPRESSION SCREEN: Past Medical History: Diagnosis Date Acute relapsing multiple sclerosis (CMS/HCC) Cerebellar infarction (CMS/HCC) Dizziness History of being hospitalized 04/2021 blood pressure Hypertension (CMS/HCC) Incontinence Myalgia Weakness Weakness of limb No past surgical history on file. Social History Tobacco Use Smoking status: Never Smokeless tobacco: Never Substance Use Topics Alcohol use: Never Drug use: Never No family history on file. Depression: Not on file REVIEW OF SYMPTOMS: Review of Systems Const: Denies appetite change, fever, chills. Allergy: Denies medication reaction. Ocular: Denies visual acuity change. ENT: Denies hearing change. Endoc: Denies weight loss. Resp: Denies dyspnoea, wheezing. Cardiac: Denies angina, palpitations. GI: Denies nausea, vomiting. Haem: Denies bleeding. : Denies incontinence. MSK: Denies arthralgias, joint oedema. Derm: Denies rash, hair loss. Neuro: Denies ataxia, tremor. Also see HPI for elements of ROS documented therein and for details of positive findings, which shall supersede the foregoing. OBJECTIVE: 06/15/2024 1:03 PM 05/16/2024 9:42 AM 02/17/2024 9:03 AM Vitals BMI 22.67 kg/m2 22.67 kg/m2 22.71 kg/m2 BSA (m2) 1.61 m2 1.61 m2 1.61 m2 Systolic 130 138 Diastolic 78 86 Heart Rate 100 SpO2 98 % Resp 16 Height (in) 5' 3 5' 3 5' 3 Weight (lb) 128 128 128.2 Visit Report Report Report Report EXAM: Neurological Exam GENERAL EXAMINATION Appearance: in no acute distress, well developed, well nourished. Head: normocephalic, atraumatic. Eyes: pupils equal, round, reactive to light and accommodation. Ears: normal. Mouth: mucosa moist. Throat: clear. Neck: neck supple, full range of motion, no cervical lymphadenopathy. Skin: no suspicious lesions, warm and dry. Heart: no murmurs, regular rate and rhythm, S1, S2 normal. Lungs: clear to auscultation bilaterally. Abdomen: normal, bowel sounds present, soft, nontender, nondistended. Extremities: no clubbing, cyanosis, or edema. NEUROLOGICAL EXAMINATION Mental Status: The patient is alert and oriented to person, place, and time. Except as noted, thought content, form, and comprehension was normal. Phonation, articulation, resonance, and prosody are normal. Cranial Nerves: Pupils were 4.0 millimeters, equal, round, and reactive to light and accommodation, both directly and consensually. Visual evans were full by confrontation. There was no ptosis; extra-ocular movements were full; and there was no nystagmus. Funduscopic exam is normal. Masseters are of normal strength. Facial movement is normal. Hearing is grossly intact. There is no dysarthria. The gag reflex is equal bilaterally. Sternocleidomastoids and trapezii are of normal strength. The tongue protrudes in the midline. Motor: Muscle testing was performed in all four extremities, including at least supply clerk, finger abductors, biceps, triceps, deltoid, toe flexors and extensors, tibialis anterior, triceps surae, quadriceps femoris, biceps femoris, and iliopsoases are 4/5. Tone is abnormal. Muscle bulk is normal. Fasciculations are not seen . Pronator drift was not evident. Sensory: Sensation to touch, temperature, and vibration was normal in the arms, legs and face. Romberg is negative. Reflexes: Biceps, triceps, brachioradialis are 2/4 bilaterally. Patellar and Achilles reflexes are 2/4 bilaterally. Plantar responses were flexor bilaterally. Coordination: Dysmetria and dysdiadochokinesia are absent. Tremor is absent; dystonia is absent; chorea is absent. Gait And Station: Station and gait are normal. Apraxia and spasticity are not evident. Arm swing is normal. Toe, heel, and tandem walking are performed without difficulty. Musculoskeletal: Trigger-point tenderness was absent. There is no spasm of the trapezii or paraspinals. PROCEDURE: NONE ASSESSMENT AND PLAN: Diagnoses and all orders for this visit: Vertigo of central origin Acute relapsing multiple sclerosis (CMS/HCC) - She will be maintained on Ocrevus -I counseled the patient on the possible side effects and interactions of medications. -I will arrange for physical therapy for gait assessment and treatment of balance difficulties to improve fall risk documented in this encounter [facility] 11-21-2024 Telephone encounter Note Patient left additional message requesting status of Ocrevus order. She states she is scheduled for this but insurance is requesting PA status. [facility] 11-21-2024 Miscellaneous Notes Patient left additional message requesting status of Ocrevus order. She states she is scheduled for this but insurance is requesting PA status. Tizanidine refill request sent to provider. Patient requesting 90 day supply to [facility]. Last appt documented in this encounter [facility] 11-21-2024 Telephone encounter Note Tizanidine refill request sent to provider. Patient requesting 90 day supply to [facility]. Last appt [facility] 08-29-2024 History of Present illness Narrative [facility] memory testing ordered, referral placed and sent to patient to complete. documented in this encounter [facility] 07-26-2024 Telephone encounter Note sent [facility] 07-26-2024 Miscellaneous Notes sent Patient called and states that she was trying to get refill of Buspar 7.5mg TID and pharmacy advised rx was cancelled. Please resend to [facility] in [place]. Advised patient per system it was cancelled on 06/15/24 which looks like was done by provider office she seen that day. Advised would get message over to provider for refill to be resent to pharmacy. Pt verbalized understanding. documented in this encounter [facility] 07-26-2024 Telephone encounter Note Patient called and states that she was trying to get refill of Buspar 7.5mg TID and pharmacy advised rx was cancelled. Please resend to [facility] in [place]. Advised patient per system it was cancelled on 06/15/24 which looks like was done by provider office she seen that day. Advised would get message over to provider for refill to be resent to pharmacy. Pt verbalized understanding. [facility] Evaluation note Diagnosis Cerebellar infarction (CMS/HCC)- Primary Unspecified cerebral artery occlusion with cerebral infarction Other fatigue Memory loss [facility] Multiple sclerosis (CMS/HCC) Multiple sclerosis [facility] Diagnosis Multiple sclerosis (CMS/HCC)- Primary Multiple sclerosis [facility] Diagnosis Multiple sclerosis (CMS/HCC) Multiple sclerosis [facility] Diagnosis Vertigo of central origin- Primary Acute relapsing multiple sclerosis (CMS/HCC) Multiple sclerosis [facility] Diagnosis Vertigo of central origin- Primary Multiple sclerosis (CMS/HCC) Multiple sclerosis Acute relapsing multiple sclerosis (CMS/HCC) Multiple sclerosis [facility] Diagnosis Multiple sclerosis (CMS/HCC) Multiple sclerosis Acute [...] section and content) DATE CREATED AUTHOR 04/28/2018 [facility] DATE CREATED AUTHOR AUTHOR'S ORGANIZ ATION 11/18/2022 [facility] DATE CREATED AUTHOR AUTHOR'S ORGANIZ ATION 02/16/2023 [facility] DATE CREATED AUTHOR AUTHOR'S ORGANIZ ATION 02/23/2025 [facility] EPIC Care Teams (unrecognized sec tion and content) It Audit Manager Relationship Specialty Start Date End Date Krishan Burciaga MD [address] [place] [address] PCP - General Family Medicine 06/15/24 It Audit Manager Relationship Specialty Start Date End Date Krishan Burciaga MD [address] [place] [address] PCP - General Family Medicine 06/15/24 It Audit Manager Relationship Specialty Start Date End Date Krishan Burciaga MD [address] [facility] [place] [address] PCP - General Family Medicine 06/15/24 It Audit Manager Relationship Specialty Start Date End Date Krishan Burciaga MD [address] [facility] [place] [address] PCP - General Family Medicine 06/15/24 It Audit Manager Relationship Specialty Start Date End Date Krishan Burciaga MD [address] [facility] [place] [address] PCP - General Family Medicine 06/15/24 It Audit Manager Relationship Specialty Start Date End Date Krishan Burciaga MD [address] [facility] [place] [place] [address] PCP - General Family Medicine 06/15/24 It Audit Manager Relationship Specialty Start Date End Date Krishan Burciaga MD PCP - General Family Medicine 06/15/24 Reason [...] BE BASED ON THE PRIMARY CLINICAL RECORDS. [employer] provides no warranty or guarantee of the accuracy or completeness of information in this document.
[2025-03-30 19:49] LABS: Troponin I High Sensitivity 167.6 pg/mL (4.0-51.3)
[2025-03-30 19:50] LABS: Lactate/Lactic Acid 2.4 mmol/L (0.4-2.0)
[2025-03-30] MEDS: POTASSIUM CHLORIDE 10 MEQ ER TABLET PO (21:16)
[2025-03-30] MEDS: CARVEDILOL 12.5 MG TABLET PO (21:16)
[2025-03-30] MEDS: TIZANIDINE HCL 4 MG TABLET 8 MG PO (21:16)
[2025-03-30] MEDS: ATORVASTATIN CALCIUM 20 MG TABLET PO (21:17)
[2025-03-30] MEDS: PROSTAT 15 GM PROTEIN/100 CAL 30 ML LIQUID PACKET PO (21:17)
[2025-03-30] MEDS: 0.9 % SODIUM CHLORIDE 1,000 ML 125 ML IV (21:17)
[2025-03-30] MEDS: ENSURE HP 237 ML LIQUID PO (21:17)
[2025-03-30] MEDS: CEFTRIAXONE 1,000 MG in 0.9 % SODIUM CHLORIDE 50 ML 100 MG IV (21:18)
[2025-03-30] MEDS: ONDANSETRON PF 4 MG/2 ML VIAL IV (21:23)
[2025-03-30 21:31] LABS: Glucometer 235 mg/dL (74-106)
[2025-03-30] MEDS: INSULIN ASPART 300 UNIT/3 ML PEN SUBQ (21:31)
[2025-03-30 22:17] LABS: Lactate/Lactic Acid 1.5 mmol/L (0.4-2.0)
--- NOTE | 2025-03-30 22:45 | ECG_ITS ---
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 Measurements Intervals [place] Rate: 98 P: 74 AL: 131 QRS: 46 QRSD: 75 T: 82 QT: 376 QTc: 481 Interpretive Statements SINUS RHYTHM LEFT ATRIAL ENLARGEMENT [-0.15mV P WAVE IN V1/V2] SEPTAL MYOCARDIAL INFARCTION [40+ ms Q WAVE IN V1/V2], OF INDETERMINATE AGE Abnormal ECG Compared to ECG 03/30/2025 14:21:28 Myocardial infarct finding now present ST (T wave) deviation no longer present Electronically Signed On 03-31-2025 17:33:31 EDT by MOISE MCNULTY M.D.
[2025-03-31] VITALS (20 sets, daily range): BP systolic 74–103; BP diastolic 40–73; PULSE 83–107; TEMP 36.3–36.6; O2SAT 90–97; BMI 20.1
[2025-03-31] MEDS: CARVEDILOL 12.5 MG TABLET PO (05:20)
[2025-03-31] MEDS: 0.9 % SODIUM CHLORIDE 1,000 ML 125 ML IV ×2 (05:20→17:35)
[2025-03-31] MEDS: TIZANIDINE HCL 4 MG TABLET 8 MG PO ×2 (05:20→14:26)
[2025-03-31 05:43] LABS: PCO2 VBG 31.2 mmHg (40.0-52.0); pH VBG 7.552 (7.330-7.430)
--- NOTE | 2025-03-31 06:02 | CA_ITS ---
Patient Name: HERMELINDO WEINBERG MR#: [id number] : 1970 Exam Date: 03/31/2025 Ordering Doctor: DR KRISHAN SANABRIA . ECHOCARDIOGRAM REPORT PROCEDURE: CA ECHO DOPPLER COMPLETE INDICATIONS: NSTEMI, hypertension, multiple sclerosis COMPARISON: None. DESCRIPTION: COMPLETE ECHOCARDIOGRAM Real-time transthoracic echocardiography with 2D, M-mode, spectral and color flow Doppler performed. QUALITY: Technical quality was good. LEFT VENTRICLE: Normal chamber size. Thickened septal wall. Normal systolic function. LV EF: Calculated left ventricular ejection fraction is 58%. Normal left ventricular ejection fraction, (>55%). DIASTOLIC: Normal diastolic function. ATRIAL SEPTUM: LEFT ATRIUM: Normal chamber size. RIGHT ATRIUM: Normal chamber size. RIGHT VENTRICLE: Normal chamber size. Normal right ventricular systolic function. TRICUSPID VALVE: Normal mobility and thickness. No stenosis with mild regurgitation. No evidence of pulmonary hypertension. RVSP 25 mmHg MITRAL VALVE: Normal mobility and thickness. No evidence of mitral valve stenosis. There is no mitral annular calcification. No mitral regurgitation. AORTIC VALVE: Normal trileaflet appearance. No visible sclerosis. Normal leaflet mobility. No evidence of aortic valve stenosis. No aortic regurgitation. AORTIC ROOT: Normal diameter and appearance, measuring 3.1 cm. PULMONIC VALVE: Normal thickness and mobility. No stenosis. No regurgitation. PERICARDIUM: No evidence of pericardial effusion. IVC: Not well visualized. PLEURA: CONCLUSION: 1. Normal ventricular size and function. Estimated LVEF is 55-60%. 2. Mild tricuspid regurgitation. 3. Normal right-sided pressures. Adult Echocardiography Procedure Report Left Ventricle LVEDD (3.7 - 5.6 cm): 3.51 cm LVESD (2.2 - 4.0 cm): 2.69 cm LVIVS thickness (0.6 - 1.2 cm): 1.19 cm LVPW thickness (0.5 - 1.0 cm): 0.92 cm e': 0.10 m/s E - e': 7.70 LVOT Max Gradient: 5.94 mm[Hg] LVOT Area (cm2): 1.22 m/s Peak Velocity (LVOT): 1.22 m/s Mean Velocity (LVOT): 0.92 m/s LVOT Diameter 2.03 cm Left Atrium LA Volume Index (2D A2C): 19.95 ml/m2 Left Atrium Systolic Dimension: 2.37 cm Mitral Valve MV E to A Ratio: 0.91 Mitral Valve A-Wave Peak Velocity: 0.81 m/s Mitral Valve E-Wave Peak Velocity: 0.74 m/s Right Ventricle Aorta AO Root Diam: 3.05 cm Aortic Valve AoV Area (Peak Abiasi): 2.92 cm2, 2.92 cm2 AoV Area (VTI): 3.00 cm2, 3.00 cm2 Peak Velocity(Antegrade Flow): 1.35 m/s Peak Gradient(Antegrade Flow): 7.26 mm[Hg] Mean Velocity(Antegrade Flow): 0.91 m/s Mean Gradient(Antegrade Flow): 3.82 mm[Hg] Velocity Time Integral: 23.60 cm Tricuspid Valve Peak Velocity (Regurgitant Flow): 2.32 m/s, 2.29 m/s Pulmonic Valve Peak Velocity: 0.65 m/s Peak Gradient: 1.67 mm[Hg] Right Atrium Right Atrium Systolic Pressure: 35.89 ml, 35.89 ml Dictated by: Juan Manuel Mcqueen M.D. on 03/31/2025 at 17:08 Approved by: Juan Manuel Mcqueen M.D. on 03/31/2025 at 17:13
[2025-03-31 06:26] LABS: Alanine Aminotransferase 35 U/L (14-59); Albumin Globulin Ratio 0.5; Albumin Level 1.4 g/dL (3.4-5.0); Alkaline Phosphatase 119 U/L (46-116); Anion Gap 11.6; Aspartate Amino Transferase 28 U/L (15-37); BUN Creatinine Ratio 50.9; Bilirubin Total 0.4 mg/dL (0.2-1.0); Calcium 7.9 mg/dL (8.5-10.1); Carbon Dioxide 29.2 mmol/L (21.0-32.0); Chloride 105 mmol/L (98-107); Estimated GFR (African America 59 (>=60 mL/min/1.73m^2); Estimated GFR (Non-African Ame 49 (>=60 mL/min/1.73m^2); Globulin 2.8 g/dL; Glucose 175 mg/dL (74-106); Magnesium 1.4 mg/dL (1.8-2.4); Sodium 143 mmol/L (136-145); Total Protein 4.2 g/dL (6.4-8.2)
[2025-03-31 06:27] LABS: Potassium 2.8 mmol/L (3.5-5.1)
[2025-03-31 06:28] LABS: Troponin I High Sensitivity 126.7 pg/mL (4.0-51.3)
[2025-03-31 06:53] LABS: Prothrombin Time 15.3 sec (9.0-11.6)
[2025-03-31 07:08] LABS: Hemoglobin 11.2 g/dL (12.0-16.0); Mean Corpuscular HGB Conc 33.9 g/dL (29.9-35.2); Mean Corpuscular Hemoglobin 29.5 pg (26.7-34.0); Mean Corpuscular Volume 86.8 fL (81.0-99.0); Mean Platelet Volume 10.4 fL (9.5-13.5); Platelet Count 219 10^3/uL (150-450)
[2025-03-31 07:47] LABS: Eosinophils Absolute Manual 0.22 10^3/uL (0.00-0.70); Lymphocytes Absolute Manual 0.22 10^3/uL (1.20-3.80); Monocytes Absolute Manual 0.77 10^3/uL (0.30-0.80); Segmented Neut Absolute Manual 9.79 10^3/uL (1.4-6.5)
[2025-03-31] MEDS: PANTOPRAZOLE SODIUM 40 MG VIAL IV (08:18)
[2025-03-31] MEDS: 0.9 % SODIUM CHLORIDE 1,000 ML 1000 ML IV (08:18)
[2025-03-31] MEDS: INSULIN ASPART 300 UNIT/3 ML PEN SUBQ (08:22)
--- NOTE | 2025-03-31 08:24 | CM.NOTE ---
Rounds made with Dr. Burciaga, pt awake and answering questions appropriately. Pt's BP remains low, Dr. Burciaga orders fluid bolus. Discussed with pt am lab work, diagnosis and plan of care. No discharge today.
[2025-03-31] MEDS: SOLIFENACIN SUCCINATE 10 MG TABLET PO (08:25)
[2025-03-31] MEDS: POTASSIUM CHLORIDE 10 MEQ ER TABLET 20 MEQ PO ×2 (08:26→22:03)
--- NOTE | 2025-03-31 08:47 | P.PN_ITS ---
Progress Note: Subjective Subjective Interval history: Patient states she did not feel significantly better today, she definitely looks better than when squad found her as she was unresponsive at that time Exam Constitutional Vital Signs, click to edit/add: Last Vital Signs Temp 97.9 F 03/31/25 08:00 Pulse 91 H 03/31/25 08:00 Resp 18 03/31/25 08:00 BP 80/53 L 03/31/25 08:00 Pulse Ox 93 L 03/31/25 08:00 O2 Del Method Room Air 03/31/25 08:00 Documenting provider has reviewed patient's vital signs: yes Common normals: no apparent distress (But significant fatigue) Respiratory Common normals: normal respiratory effort, no retractions and no use of accessor y muscles Cardio Common normals: regular rate, regular rhythm and no murmurs GI Common normals: Normal to inspection, nondistended, normoactive bowel sounds present and soft to palpation Extremity Common normals: normal to inspection, full ROM and normal capillary refill Progress Note: Objective Labs Labs: Short CBC 03/30/25 03/31/25 Range/Units 14:39 05:35 WBC 19.3 H 11.0 (4.0-11.0) 10^3/uL Hgb 16.2 H 11.2 L (12.0-16.0) g/dL Hct 47.0 33.0 L (36.0-48.0) % Plt Count 332 219 (150-450) 10^3/uL BMP 03/30/25 03/31/25 14:39 05:35 Sodium 135 L 143 Potassium 2.9 L* 2.8 L* Chloride 94 L 105 Carbon Dioxide 31.5 29.2 BUN 78.0 H* 59.0 H Creatinine 2.47 H 1.16 H Glucose 359 H 175 H Calcium 9.3 7.9 L Cardiac Enzymes 03/30/25 03/30/25 Range/Units 14:39 18:52 Total Creatine Kinase 19 L 25 L (26-192) U/L CK-MB (CK-2) 2.29 2.45 (<=3.60) ng/mL Liver Function 03/30/25 03/31/25 Range/Units 14:39 05:35 Total Bilirubin 1.0 0.4 (0.2-1.0) mg/dL AST 16 28 (15-37) U/L ALT 40 35 (14-59) U/L Alkaline Phosphatase 180 H 119 H (46-116) U/L Albumin 2.3 L 1.4 L (3.4-5.0) g/dL Urine 05//25 Range/Units 14:51 Urine Color Yellow (YELLOW) Urine Clarity Clear (CLEAR) Urine pH 6.0 (5.0-9.0) Ur Specific [place] 1.010 (1.005-1.025) Urine Protein Trace (NEG/TRACE) mg/dL Urine Glucose (UA) >=1000 A (NEGATIVE) mg/dL Progress Note: A&P Assessment and Plan (1) Pressure ulcer of coccygeal region: (2) Leukocytosis: (3) Acute urinary retention: (4) Elevated blood sugar: (5) Hematuria: (6) IAN (acute kidney injury): (7) Multiple sclerosis: (8) HTN (hypertension): (9) Diabetes mellitus: (10) Severe protein-calorie malnutrition: (11) Acute non-ST elevation myocardial infarction (NSTEMI): (12) Hypokalemia: (13) Elevated liver enzymes: (14) Acute renal failure: Plan Admission findings: Sinus tachycardia, respiratory distress, hypertensive urgency, leukocytosis, altered mental status, acute renal failure (baseline creatinine 0.84, creatinine admission 2.97 which is 353.6% above baseline), secondary to UTI leading to this sepsis, you can see is a little solange in the upper right-hand corner, lactate returned after evaluation and was elevated resulting in severe sepsis [id number] to UTI-IV fluids, IV antibiotics, cultures pending blood cultures and urine, more aggressive fluid resuscitation this morning Altered mental status likely secondary to the above-improving so far with hydration Acute renal failure as outlined above-improved today continue to monitor and continue with fluid resuscitation Hypertensive urgency-significant hypotension, holding clonidine need to watch for reflex tachycardia Acute NSTEMI type II secondary to the above-repeat labs in a.m.-echo pending Polycythemia-likely secondary to the dehydration-improved Bladder outlet obstruction with significant hematuria-bladder decompressed with Lafleur catheter, maintain catheter throughout the day today, consider stopping tomorrow Hypokalemia-supplement Elevated liver function test-improved Hyponatremia-improved Coagulopathy-continue to monitor protimes Poorly controlled diabetes mellitus-insulin sliding scale Elevated high-sensitivity troponin-check echocardiogram likely related to the elevation in the creatinine-troponin improving Multiple sclerosis by history patient does not feel this is a flare Admission status: Patient found with altered mental status, acute renal failure, sepsis secondary to UTI, medically necessary treatment will span 2 midnights. Inpatient status Urinary Catheter Management Urinary Catheter Management Urethral: Cath placed during this visit: yes Urethral indwelling: Yes Reason for continuing: acute urinary retention Insertion date: 03/30/25 Insertion time: 14:55
--- NOTE | 2025-03-31 09:51 | CM.NOTE ---
Important Message From Medicare discussed with pt, pt verbalizes understanding and signs paper. Original given to pt and copy placed in pt's chart.
[2025-03-31 09:55] LABS: Glucometer 228 mg/dL (74-106)
[2025-03-31] MEDS: MAGNESIUM SULFATE IN WATER 4 GM/100 ML PIGGYBACK IV (09:57)
[2025-03-31 10:35] LABS: Internal Control Within Normal Limits; Occult Blood Positive
[2025-03-31 11:59] LABS: C. Difficile PCR POSITIVE
[2025-03-31] MEDS: 0.9 % SODIUM CHLORIDE 1,000 ML 500 ML IV (12:04)
[2025-03-31 12:14] LABS: Glucometer 134 mg/dL (74-106)
[2025-03-31 12:42] LABS: A. calcoaceticus-baumannii Cpx NOT DETECTED (NOT DETECTE); Bacteroides fragilis NOT DETECTED (NOT DETECTE); Candida albicans NOT DETECTED (NOT DETECTE); Candida auris NOT DETECTED (NOT DETECTE); Candida glabrata NOT DETECTED (NOT DETECTE); Candida krusei NOT DETECTED (NOT DETECTE); Candida parapsilosis NOT DETECTED (NOT DETECTE); Candida tropicalis NOT DETECTED (NOT DETECTE); Cryptococcus neoformans/gattii NOT DETECTED (NOT DETECTE); Enterobacter cloacae complex NOT DETECTED (NOT DETECTE); Enterobacterales NOT DETECTED (NOT DETECTE); Enterococcus faecalis NOT DETECTED (NOT DETECTE); Enterococcus faecium NOT DETECTED (NOT DETECTE); Haemophilus influenzae NOT DETECTED (NOT DETECTE); Klebsiella aerogenes NOT DETECTED (NOT DETECTE); Klebsiella pneumoniae group NOT DETECTED (NOT DETECTE); Listeria monocytogenes NOT DETECTED (NOT DETECTE); Neisseria meningitidis NOT DETECTED (NOT DETECTE); Proteus spp. NOT DETECTED (NOT DETECTE); Pseudomonas aeruginosa NOT DETECTED (NOT DETECTE); Salmonella spp. NOT DETECTED (NOT DETECTE); Serratia marcescens NOT DETECTED (NOT DETECTE); Staphylococcus epidermidis NOT DETECTED (NOT DETECTE); Staphylococcus lugdunensis NOT DETECTED (NOT DETECTE); Stenotrophomonas maltophilia NOT DETECTED (NOT DETECTE); Streptococcus agalactiae NOT DETECTED (NOT DETECTE); Streptococcus pneumoniae NOT DETECTED (NOT DETECTE); Streptococcus pyogenes NOT DETECTED (NOT DETECTE); Streptococcus spp. NOT DETECTED (NOT DETECTE)
[2025-03-31 14:02] LABS: Source BLOOD
[2025-03-31 14:05] LABS: Staphylococcus spp. DETECTED (NOT DETECTE)
[2025-03-31] MEDS: VANCOMYCIN HCL 7,500 MG/150 ML BOTTLE 250 MG PO ×3 (14:35→22:12)
[2025-03-31 14:38] LABS: Anion Gap 11.2; Calcium 7.8 mg/dL (8.5-10.1); Carbon Dioxide 27.6 mmol/L (21.0-32.0); Chloride 107 mmol/L (98-107); Estimated GFR (African America >60 (>=60 mL/min/1.73m^2); Estimated GFR (Non-African Ame >60 (>=60 mL/min/1.73m^2); Glucose 129 mg/dL (74-106); Sodium 143 mmol/L (136-145)
--- NOTE | 2025-03-31 14:39 | SWNOTE1 ---
Discussed PT recommendation of home health with pt. Pt is in agreement and chose [facility]. Referral faxed to [facility] included facesheet, ER note, H&P, progess note, physical therapy note, and code status.
[2025-03-31 14:46] LABS: Potassium 2.8 mmol/L (3.5-5.1)
--- NOTE | 2025-03-31 15:12 | CM.NOTE ---
[facility] called and they are able to accept pt for HH services at discharge.
--- NOTE | 2025-03-31 15:56 | CM.NOTE ---
Updated pt that [facility] was able to accept her for HH services at discharge.
[2025-03-31] MEDS: METRONIDAZOLE/SODIUM CHLORIDE 500 MG/100 ML PREMIX 100 MG IV ×2 (16:30→22:17)
[2025-03-31] MEDS: POTASSIUM CHLORIDE 40 MEQ in 0.9 % SODIUM CHLORIDE 250 ML 67.5 MEQ IV (16:31)
[2025-03-31 17:49] LABS: Glucometer 150 mg/dL (74-106)
[2025-03-31] MEDS: 0.9 % SODIUM CHLORIDE 1,000 ML 250 ML IV (18:11)
--- NOTE | 2025-03-31 18:15 | PC.NURSE ---
dr ziegler updated on the patients status, orders received
[2025-03-31] MEDS: PROSTAT 15 GM PROTEIN/100 CAL 30 ML LIQUID PACKET PO (22:03)
[2025-03-31] MEDS: ENSURE HP 237 ML LIQUID PO (22:03)
[2025-03-31] MEDS: ATORVASTATIN CALCIUM 20 MG TABLET PO (22:04)
[2025-03-31 22:18] LABS: Glucometer 150 mg/dL (74-106)
[2025-04-01] VITALS (20 sets, daily range): BP systolic 106–149; BP diastolic 70–99; PULSE 94–115; TEMP 36.5–36.8; O2SAT 94–98
[2025-04-01] MEDS: METRONIDAZOLE/SODIUM CHLORIDE 500 MG/100 ML PREMIX 100 MG IV ×4 (05:40→23:04)
[2025-04-01] MEDS: VANCOMYCIN HCL 7,500 MG/150 ML BOTTLE 250 MG PO ×4 (05:41→21:25)
[2025-04-01 06:20] LABS: PCO2 VBG 35.9 mmHg (40.0-52.0); pH VBG 7.484 (7.330-7.430)
[2025-04-01 06:24] LABS: Basophils Percent Auto 0.4 % (0.2-2.0); Eosinophils Absolute Auto 0.2 10^3/uL (0.0-0.7); Eosinophils Percent Auto 1.5 % (0.9-7.0); Hematocrit 34.6 % (36.0-48.0); Hemoglobin 11.5 g/dL (12.0-16.0); Immature Granulocytes Abs Auto 0.23 10^3/uL (0.00-0.03); Immature Granulocytes Pct Auto 2.4 % (0.0-0.5); Lymphocytes Absolute Auto 0.5 10^3/uL (1.2-3.8); Lymphocytes Percent Auto 5.4 % (20.5-60.0); Mean Corpuscular HGB Conc 33.2 g/dL (29.9-35.2); Mean Corpuscular Hemoglobin 28.8 pg (26.7-34.0); Mean Corpuscular Volume 86.7 fL (81.0-99.0); Mean Platelet Volume 9.8 fL (9.5-13.5); Monocytes Absolute Auto 0.9 10^3/uL (0.3-0.8); Monocytes Percent Auto 9.2 % (1.7-12.0); Neutrophils Absolute Auto 7.9 10^3/uL (1.4-6.5); Neutrophils Percent Auto 81.1 % (43.0-75.0); Platelet Count 248 10^3/uL (150-450); Red Blood Count 3.99 10^6/uL (4.20-5.40); Red Cell Distribution Width 14.4 % (11.0-15.0); White Blood Count 9.7 10^3/uL (4.0-11.0)
[2025-04-01 06:33] LABS: INR 1.14; Prothrombin Time 11.9 sec (9.0-11.6)
[2025-04-01 06:46] LABS: Alanine Aminotransferase 39 U/L (14-59); Albumin Globulin Ratio 0.6; Albumin Level 1.6 g/dL (3.4-5.0); Alkaline Phosphatase 122 U/L (46-116); Anion Gap 10.6; Aspartate Amino Transferase 23 U/L (15-37); BUN Creatinine Ratio 37.3; Bilirubin Total 0.4 mg/dL (0.2-1.0); Calcium 7.7 mg/dL (8.5-10.1); Carbon Dioxide 27.9 mmol/L (21.0-32.0); Chloride 110 mmol/L (98-107); Estimated GFR (African America >60 (>=60 mL/min/1.73m^2); Estimated GFR (Non-African Ame >60 (>=60 mL/min/1.73m^2); Globulin 2.8 g/dL; Glucose 198 mg/dL (74-106); Magnesium 1.5 mg/dL (1.8-2.4); Potassium 3.5 mmol/L (3.5-5.1); Sodium 145 mmol/L (136-145); Total Protein 4.4 g/dL (6.4-8.2)
[2025-04-01 06:49] LABS: Troponin I High Sensitivity 203.2 pg/mL (4.0-51.3)
[2025-04-01] MEDS: 0.9 % SODIUM CHLORIDE 1,000 ML 125 ML IV (07:19)
[2025-04-01] MEDS: PANTOPRAZOLE SODIUM 40 MG VIAL IV (08:15)
[2025-04-01] MEDS: INSULIN ASPART 300 UNIT/3 ML PEN SUBQ ×3 (08:15→16:17)
[2025-04-01] MEDS: MAGNESIUM SULFATE IN WATER 4 GM/100 ML PIGGYBACK IV (09:12)
[2025-04-01] MEDS: SOLIFENACIN SUCCINATE 10 MG TABLET PO (09:22)
[2025-04-01] MEDS: POTASSIUM CHLORIDE 10 MEQ ER TABLET 20 MEQ PO ×2 (09:22→21:25)
[2025-04-01] MEDS: CLONIDINE 1 PATCH TD (09:23)
[2025-04-01] MEDS: CARVEDILOL 6.25 MG TABLET PO ×2 (09:23→21:24)
--- NOTE | 2025-04-01 09:28 | REH.PTDLY ---
Physical Therapy Daily Note PT Daily Note/Assess Start: 03/31/25 11:38 Freq: Status: Active Protocol: Document 04/01/25 09:21 VICKIESAMIA (Rec: 04/01/25 09:28 [facility] [id number]) Physical Therapy Daily Note/Assessment Time In 08:45 Time Out 09:[address] Burciaga just finishing in room. Pt agreeable to therapy . Therapeutic Exercise 15 Minutes (minutes) Therapeutic Exercise 1 Units Therapeutic Exercise Instructed in AAROM with B LEs in supine position with Treatment exs including AP, QS, heel slides, hip abd slides, and SLR 10x ea. Pt requires assist with all exs, L LE stronger compared to R LE. Once sitting pt performed B LE LAQ, L LE marching, hip add squeeze, MRE hip abd and HS curl 10x ea. Therapeutic Activity 8 Minutes (minutes) Therapeutic Activity 1 Units Therapeutic Activity Supine to sit transfers Mod A with Conrad LEs, pt able to Comments push up some with UEs off bed to seated position. Pt sits bedside with no complaints of dizziness. Able to maintain seated balance with slumped posture. Had pt perform UE flex and abd while maintaining seated balance with no LOB noted. Pt sits bedside for 10 mins. Pt does not feel like her legs will support her if she tries to stand at this time. Min A with sit to supine transfers. Mod A x2 to position pt in bed. Total Therapy 23 Minutes Total Physical 2 Therapy Units Daily Note Summary Progressed sitting tolerance today as well as ability to perform exs. Pt does need AA with all supine exs, seated exs able to perform in small range, L better than R. Pt declines standing today, reports at home she usually does not stand as legs don't support her. Continue to progress pt as able next visit.
--- NOTE | 2025-04-01 09:49 | P.PN_ITS ---
Progress Note: Subjective Subjective Interval history: Looks better today, more awake and alert today than previous day Exam Constitutional Vital Signs, click to edit/add: Last Vital Signs Temp 97.9 F 04/01/25 08:00 Pulse 100 H 04/01/25 08:00 Resp 20 04/01/25 08:00 BP 149/99 H 04/01/25 08:00 Pulse Ox 95 04/01/25 08:00 O2 Del Method Room Air 04/01/25 08:00 Documenting provider has reviewed patient's vital signs: yes Common normals: no apparent distress (Less fatigue today) Chest Common normals: inspection of chest normal Respiratory Common normals: normal respiratory effort, no retractions and clear to a uscultation bilaterally Cardio Common normals: regular rate, regular rhythm, S1 normal heart sound and S2 normal heart sound GI Common normals: Normal to inspection, nondistended, normoactive bowel sounds present, soft to palpation, non-tender, no hepatosplenomegaly and no masses Extremity Common normals: full ROM and normal capillary refill; abnormal to inspection (Trace edema) Progress Note: Objective Labs Labs: Short CBC 04/01/25 Range/Units 06:07 WBC 9.7 (4.0-11.0) 10^3/uL Hgb 11.5 L (12.0-16.0) g/dL Hct 34.6 L (36.0-48.0) % Plt Count 248 (150-450) 10^3/uL BMP 03/31/25 04/01/25 14:13 06:07 Sodium 143 145 Potassium 2.8 L* 3.5 Chloride 107 110 H Carbon Dioxide 27.6 27.9 BUN 42.0 H 19.0 H Creatinine 0.84 0.51 L Glucose 129 H 198 H Calcium 7.8 L 7.7 L Liver Function 04/01/25 Range/Units 06:07 Total Bilirubin 0.4 (0.2-1.0) mg/dL AST 23 (15-37) U/L ALT 39 (14-59) U/L Alkaline Phosphatase 122 H (46-116) U/L Albumin 1.6 L (3.4-5.0) g/dL Progress Note: A&P Assessment and Plan (1) Pressure ulcer of coccygeal region: (2) Leukocytosis: (3) Acute urinary retention: (4) Elevated blood sugar: (5) Hematuria: (6) IAN (acute kidney injury): (7) Multiple sclerosis: (8) HTN (hypertension): (9) Diabetes mellitus: (10) Severe protein-calorie malnutrition: (11) Acute non-ST elevation myocardial infarction (NSTEMI): (12) Hypokalemia: (13) Elevated liver enzymes: (14) Acute renal failure: Plan Admission findings: Sinus tachycardia, respiratory distress, hypertensive urg ency, leukocytosis, altered mental status, acute renal failure (baseline creatinine 0.84, creatinine admission 2.97 which is 353.6% above baseline), secondary to UTI leading to this sepsis, you can see is a little solange in the upper right-hand corner, lactate returned after evaluation and was elevated resulting in severe sepsis Severe sepsis with lactic acidosis-secondary to C. difficile colitis-on IV metronidazole and oral vancomycin secondary to the invasive nature likely with her severe sepsis, blood cultures are pending, 1 culture is positive for staph but looks like it is a contaminant as its only 1 culture, UTI also possibility for the severe sepsis, culture pending Altered mental status likely secondary to the above-improving Acute renal failure as outlined above-improved to baseline Hypertensive urgency-severe hypotension yesterday, improved today, restart her home medications, heart rate is elevated somewhat and possibly reflex tachycardia from being off of the clonidine as necessary for the hypotension Acute NSTEMI type II secondary to the above-labs are worse today improved believe this is from her hypotensive episode yesterday, restarting her home medications Polycythemia-likely secondary to the dehydration-improved Bladder outlet obstruction with significant hematuria-bladder decompressed with Lafleur catheter,-remove catheter Hypokalemia--improved to normal Elevated liver function test-improved Hyponatremia-improved Coagulopathy-continue to monitor protimes, this is secondary to the sepsis as outlined above Poorly controlled diabetes mellitus-insulin sliding scale Elevated high-sensitivity troponin-echocardiogram normal, appears to be more fluid overloaded today, no diuresis, controlling heart rate and blood pressure should improve Multiple sclerosis by history patient does not feel this is a flare Admission status: Patient found with altered mental status, acute renal failure, sepsis secondary to UTI, medically necessary treatment will span 2 midnights. Inpatient status Urinary Catheter Management Urinary Catheter Management Urethral: Cath placed during this visit: yes Urethral indwelling: Yes Reason for continuing: acute urinary retention Insertion date: 03/30/25 Insertion time: 14:55
[2025-04-01 11:31] LABS: Glucometer 283 mg/dL (74-106)
[2025-04-01] MEDS: LEVOFLOXACIN IN DEXTROSE 5 % 750 MG/150 ML PREMIX 100 MG IV (12:26)
[2025-04-01 16:16] LABS: Glucometer 218 mg/dL (74-106)
[2025-04-01] MEDS: ATORVASTATIN CALCIUM 20 MG TABLET PO (21:24)
[2025-04-01 21:25] LABS: Glucometer 98 mg/dL (74-106)
[2025-04-02] VITALS (20 sets, daily range): BP systolic 103–115; BP diastolic 69–81; PULSE 90–109; TEMP 36.4–36.7; O2SAT 94–96
[2025-04-02] MEDS: VANCOMYCIN HCL 7,500 MG/150 ML BOTTLE 250 MG PO ×4 (05:18→22:30)
[2025-04-02] MEDS: METRONIDAZOLE/SODIUM CHLORIDE 500 MG/100 ML PREMIX 100 MG IV ×4 (05:18→23:07)
[2025-04-02 06:31] LABS: Basophils Absolute Auto 0.1 10^3/uL (0.0-0.1); Basophils Percent Auto 0.6 % (0.2-2.0); Eosinophils Absolute Auto 0.2 10^3/uL (0.0-0.7); Eosinophils Percent Auto 1.9 % (0.9-7.0); Hematocrit 32.7 % (36.0-48.0); Hemoglobin 11.3 g/dL (12.0-16.0); Immature Granulocytes Abs Auto 0.34 10^3/uL (0.00-0.03); Lymphocytes Absolute Auto 0.6 10^3/uL (1.2-3.8); Lymphocytes Percent Auto 6.7 % (20.5-60.0); Mean Corpuscular HGB Conc 34.6 g/dL (29.9-35.2); Mean Corpuscular Hemoglobin 29.4 pg (26.7-34.0); Mean Corpuscular Volume 84.9 fL (81.0-99.0); Mean Platelet Volume 9.2 fL (9.5-13.5); Monocytes Absolute Auto 0.9 10^3/uL (0.3-0.8); Monocytes Percent Auto 10.9 % (1.7-12.0); Neutrophils Absolute Auto 6.5 10^3/uL (1.4-6.5); Neutrophils Percent Auto 75.9 % (43.0-75.0); PCO2 VBG 39.8 mmHg (40.0-52.0); Platelet Count 238 10^3/uL (150-450); Red Blood Count 3.85 10^6/uL (4.20-5.40); Red Cell Distribution Width 14.3 % (11.0-15.0); White Blood Count 8.6 10^3/uL (4.0-11.0); pH VBG 7.539 (7.330-7.430)
[2025-04-02 06:54] LABS: INR 1.14; Prothrombin Time 11.9 sec (9.0-11.6)
[2025-04-02 07:02] LABS: Alanine Aminotransferase 35 U/L (14-59); Albumin Globulin Ratio 0.6; Albumin Level 1.6 g/dL (3.4-5.0); Alkaline Phosphatase 110 U/L (46-116); Anion Gap 8.9; Aspartate Amino Transferase 19 U/L (15-37); BUN Creatinine Ratio 20.9; Bilirubin Total 0.5 mg/dL (0.2-1.0); Carbon Dioxide 32.6 mmol/L (21.0-32.0); Chloride 102 mmol/L (98-107); Estimated GFR (African America >60 (>=60 mL/min/1.73m^2); Estimated GFR (Non-African Ame >60 (>=60 mL/min/1.73m^2); Globulin 2.7 g/dL; Glucose 161 mg/dL (74-106); Magnesium 1.3 mg/dL (1.8-2.4); Potassium 3.5 mmol/L (3.5-5.1); Sodium 140 mmol/L (136-145); Total Protein 4.3 g/dL (6.4-8.2)
[2025-04-02 07:08] LABS: Troponin I High Sensitivity 123.1 pg/mL (4.0-51.3)
[2025-04-02] MEDS: POTASSIUM CHLORIDE 10 MEQ ER TABLET 20 MEQ PO ×2 (09:36→22:29)
[2025-04-02] MEDS: PANTOPRAZOLE SODIUM 40 MG VIAL IV (09:36)
[2025-04-02] MEDS: SOLIFENACIN SUCCINATE 10 MG TABLET PO (09:36)
[2025-04-02] MEDS: CARVEDILOL 6.25 MG TABLET PO ×2 (09:36→22:29)
--- NOTE | 2025-04-02 10:16 | P.PN_ITS ---
Progress Note: Subjective Subjective Interval history: Patient still looks very tired although she is more alert than previous days Exam Constitutional Vital Signs, click to edit/add: Last Vital Signs Temp 98.0 F 04/02/25 04:00 Pulse 101 H 04/02/25 09:37 Resp 18 04/02/25 04:00 BP 105/73 04/02/25 04:00 Pulse Ox 94 L 04/02/25 05:00 O2 Del Method Room Air 04/02/25 05:00 Documenting provider has reviewed patient's vital signs: yes Common normals: no apparent distress (Less fatigue today) Chest Common normals: inspection of chest normal Respiratory Common normals: normal respiratory effort, no retractions and clear to auscultation bilaterally Cardio Common normals: regular rate, regular rhythm, S1 normal heart sound and S2 normal heart sound GI Common normals: Normal to inspection, nondistended, normoactive bowel sounds present and soft to palpation; tender Palpation: tender (mild) Details: RLQ Extremity Common normals: full ROM and normal capillary refill; abnormal to inspection (Trace edema) Progress Note: Objective Labs Labs: Short CBC 04/02/25 Range/Units 06:20 WBC 8.6 (4.0-11.0) 10^3/uL Hgb 11.3 L (12.0-16.0) g/dL Hct 32.7 L (36.0-48.0) % Plt Count 238 (150-450) 10^3/uL BMP 04/02/25 06:20 Sodium 140 Potassium 3.5 Chloride 102 Carbon Dioxide 32.6 H BUN 9.0 Creatinine 0.43 L Glucose 161 H Calcium 8.0 L Liver Function 04/02/25 Range/Units 06:20 Total Bilirubin 0.5 (0.2-1.0) mg/dL AST 19 (15-37) U/L ALT 35 (14-59) U/L Alkaline Phosphatase 110 (46-116) U/L Albumin 1.6 L (3.4-5.0) g/dL Progress Note: A&P Assessment and Plan (1) Pressure ulcer of coccygeal region: (2) Leukocytosis: (3) Acute urinary retention: (4) Elevated blood sugar: (5) Hematuria: (6) IAN (acute kidney injury): (7) Multiple sclerosis: (8) HTN (hypertension): (9) Diabetes mellitus: (10) Severe protein-calorie malnutrition: (11) Acute non-ST elevation myocardial infarction (NSTEMI): (12) Hypokalemia: (13) Elevated liver enzymes: (14) Acute renal failure: Plan Admission findings: Sinus tachycardia, respiratory distress, hypertensive urgency, leukocytosis, altered mental status, acute renal failure (baseline creatinine 0.84, creatinine admission 2.97 which is 353.6% above baseline), secondary to UTI leading to this sepsis, you can see is a little solange in the upper right-hand corner, lactate returned after evaluation and was elevated resulting in severe sepsis Severe sepsis with lactic acidosis and hypotension requiring fluid resus citation-secondary to C. difficile colitis-on IV metronidazole and oral vancomycin secondary to the invasive nature likely with her severe sepsis, blood cultures are pending, 1 culture is positive for staph but looks like it is a contaminant as its only 1 culture, UTI also possibility for the severe sepsis, culture pending-from a white blood cell count standpoint is improving so maintain current antibiotics Altered mental status likely secondary to the above-improving slowly Acute renal failure as outlined above-improved to baseline Hypertensive urgency-severe hypotension then, improved , restart her home medications, heart rate is elevated somewhat and possibly reflex tachycardia from being off of the clonidine as necessary for the hypotension-blood pressure improved Acute NSTEMI type II secondary to the above-labs are worse today improved believe this is from her hypotensive episode yesterday, restarting her home medications Polycythemia-likely secondary to the dehydration-improved Bladder outlet obstruction with significant hematuria-bladder decompressed with Lafleur catheter,-remove catheter Hypokalemia--improved to normal Hypomagnesemia-supplemented yesterday, level actually lower today, will increase supplementation including oral Elevated liver function test-improved Hyponatremia-improved Coagulopathy-continue to monitor protimes, this is secondary to the sepsis as outlined above Poorly controlled diabetes mellitus-insulin sliding scale Elevated high-sensitivity troponin-echocardiogram normal,-improving Multiple sclerosis by history patient does not feel this is a flare Admission status: Patient found with altered mental status, acute renal failure, sepsis secondary to UTI, medically necessary treatment will span 2 midnights. Inpatient status Urinary Catheter Management Urinary Catheter Management Urethral: Cath placed during this visit: yes, but has since been removed by the rodolfo mari Urethral indwelling: Yes Insertion date: 03/30/25 Insertion time: 14:55 Removal date: 04/01/25 Removal time: 15:24 Straight: Cath placed during this visit: yes Urethral indwelling: No Insertion date: 04/02/25 Insertion time: 23:45
[2025-04-02 10:22] LABS: Glucometer 144 mg/dL (74-106)
[2025-04-02] MEDS: INSULIN ASPART 300 UNIT/3 ML PEN SUBQ ×2 (10:40→18:03)
[2025-04-02] MEDS: MAGNESIUM SULFATE IN WATER 4 GM/100 ML PIGGYBACK IV ×2 (10:40→17:03)
[2025-04-02] MEDS: LEVOFLOXACIN IN DEXTROSE 5 % 750 MG/150 ML PREMIX 100 MG IV (14:54)
[2025-04-02] MEDS: 0.9 % SODIUM CHLORIDE 250 ML 10 ML IV (17:41)
[2025-04-02 20:11] LABS: Glucometer 231 mg/dL (74-106)
[2025-04-02 20:21] LABS: Glucometer 132 mg/dL (74-106)
[2025-04-02] MEDS: MAGNESIUM OXIDE 400 MG TABLET PO (22:29)
[2025-04-02] MEDS: L. ACIDOPHILUS/L.BULGARICUS 1 PACKET GRAN.PACK PO (22:29)
[2025-04-02] MEDS: ATORVASTATIN CALCIUM 20 MG TABLET PO (22:29)
[2025-04-03] VITALS (10 sets, daily range): BP systolic 100–101; BP diastolic 70; PULSE 101–114; TEMP 36.3–36.6; O2SAT 96–97
[2025-04-03] MEDS: VANCOMYCIN HCL 7,500 MG/150 ML BOTTLE 250 MG PO ×2 (05:22→11:53)
[2025-04-03] MEDS: METRONIDAZOLE/SODIUM CHLORIDE 500 MG/100 ML PREMIX 100 MG IV (05:22)
--- NOTE | 2025-04-03 05:39 | P.DS_ITS ---
DS: Providers Provider Date of admission: 03/30/25 19:20 Primary care physician: Chava Burciaga MD Consults: 03/30/25 18:30 Consult to Pharmacy Routine Consulting Provider: Reason for consultation: Please [place] me when Med Rec is Updated Has provider been notified: No Occupational Therapy Eval and Treat Routine Reason for consultation: Only if needed for Rehab Has provider been notified: No Physical Therapy Eval and Treat Routine Reason for consultation: Eval and Treat Has provider been notified: No DS: Diagnosis Discharge Diagnosis (1) Pressure ulcer of coccygeal region: (2) Leukocytosis: (3) Acute urinary retention: (4) Elevated blood sugar: (5) Hematuria: (6) IAN (acute kidney injury): (7) Multiple sclerosis: (8) HTN (hypertension): (9) Diabetes mellitus: (10) Severe protein-calorie malnutrition: (11) Acute non-ST elevation myocardial infarction (NSTEMI): (12) Hypokalemia: (13) Elevated liver enzymes: (14) Acute renal failure: Plan Admission findings: Sinus tachycardia, respiratory distress, hypertensive urgency, leukocytosis, altered mental status, acute renal failure (baseline creatinine 0.84, creatinine admission 2.97 which is 353.6% above baseline), secondary to UTI leading to this sepsis, lactate returned after evaluation and was elevated resulting in severe sepsis Severe sepsis with lactic acidosis and hypotension requiring fluid resuscitation-secondary to C. difficile colitis-diarrhea persisting but overall improved at the time of discharge Altered mental status likely secondary to the above-improving slowly, patient does ambulate at home prior to admission, documented lack of ambulation in ER is incorrect Acute renal failure as outlined above-improved to baseline Hypertensive urgency-severe hypotension then, improved , back on home medications at lower doses Acute NSTEMI type II secondary to the above-troponin improving stress test as an outpatient Polycythemia-likely secondary to the dehydration-improved Bladder outlet obstruction with significant hematuria-bladder decompressed with Lafleur catheter,-remove catheter Hypokalemia--improved to normal Hypomagnesemia-improved to normal after IV boluses Elevated liver function test-improved Hyponatremia-improved Coagulopathy-continue to monitor protimes, this is secondary to the sepsis as outlined above Poorly controlled diabetes mellitus-insulin sliding scale Multiple sclerosis by history patient does not feel this is a flare Admission status: Patient found with altered mental status, acute renal failure, sepsis secondary to UTI, medically necessary treatment will span 2 midnights. Inpatient status DS: Summary Hospital Course Hospital Course: Patient admitted through the emergency room with increasing weakness and some altered mental status, patient had significant elevated blood pressure but then her blood pressure became severely low, she was given multiple fluid boluses with slow improvement in her blood pressure, C. difficile to [employer] scout positive, so C. difficile sepsis with acute NSTEMI type II, laboratory results are all improving, she is still significantly weak, the plan for today is to have her ambulate with physical therapy she does ambulate at home and in the listing to the contrary is incorrect, she walks into my office, so she can ambulate safely she can be discharged to home in improving condition. Medications see this. Follow-up with me in the office within this week. Time Spent with Patient Time attestation: Total time spent providing and/or coordinating discharge services: Exam Constitutional Vital Signs, click to edit/add: Last Vital Signs Temp 97.4 F L 04/03/25 03:49 Pulse 104 H 04/03/25 04:02 Resp 18 04/03/25 03:49 BP 100/70 04/03/25 03:49 Pulse Ox 96 04/03/25 03:49 O2 Del Method Room Air 04/03/25 03:49 Documenting provider has reviewed patient's vital signs: yes Common normals: no apparent distress (Fatigue continues to improve) Chest Common normals: inspection of chest normal Respiratory Common normals: normal respiratory effort, no retractions and no use of accessory muscles Auscultation: no rales and no rhonchi Cardio Common normals: regular rate, regular rhythm and no murmurs GI Common normals: Normal to inspection, nondistended, normoactive bowel sounds present, soft to palpation and non-tender Palpation: non-tender (Resolved tenderness right sided) Extremity Common normals: full ROM and normal capillary refill; abnormal to inspection (Trace edema) DS: Data Data Completed and Pending Labs on day of discharge: Labs from last 24 hours 04/02/25 04/02/25 04/02/25 20:19 18:02 10:18 WBC RBC Hgb Hct MCV MCH MCHC RDW Plt Count MPV Neut % (Auto) Lymph % (Auto) [place] % (Auto) Eos % (Auto) Baso % (Auto) Neut # (Auto) Lymph # (Auto) [place] # (Auto) Eos # (Auto) Baso # (Auto) Abs Immat Gran (auto) Imm/Tot Granulo (auto) PT INR VBG pH VBG pCO2 Sodium Potassium Chloride Carbon Dioxide Anion Gap BUN Creatinine Est GFR ( Amer) Est GFR (Non-Af Amer) BUN/Creatinine Ratio Glucose Calcium Magnesium Total Bilirubin AST ALT Alkaline Phosphatase Troponin I High Sens NT-Pro-B Natriuret Pep Total Protein Albumin Globulin Albumin/Globulin Ratio POC Glucose 132 H 231 H 144 H 04/02/25 06:20 WBC 8.6 RBC 3.85 L Hgb 11.3 L Hct 32.7 L MCV 84.9 MCH 29.4 MCHC 34.6 RDW 14.3 Plt Count 238 MPV 9.2 L Neut % (Auto) 75.9 H Lymph % (Auto) 6.7 L [place] % (Auto) 10.9 Eos % (Auto) 1.9 Baso % (Auto) 0.6 Neut # (Auto) 6.5 Lymph # (Auto) 0.6 L [place] # (Auto) 0.9 H Eos # (Auto) 0.2 Baso # (Auto) 0.1 Abs Immat Gran (auto) 0.34 H Imm/Tot Granulo (auto) 4.0 H PT 11.9 H INR 1.14 VBG pH 7.539 H VBG pCO2 39.8 L Sodium 140 Potassium 3.5 Chloride 102 Carbon Dioxide 32.6 H Anion Gap 8.9 BUN 9.0 Creatinine 0.43 L Est GFR ( Amer) >60 Est GFR (Non-Af Amer) >60 BUN/Creatinine Ratio 20.9 Glucose 161 H Calcium 8.0 L Magnesium 1.3 L Total Bilirubin 0.5 AST 19 ALT 35 Alkaline Phosphatase 110 Troponin I High Sens 123.1 H* NT-Pro-B Natriuret Pep 1045.0 H Total Protein 4.3 L Albumin 1.6 L Globulin 2.7 Albumin/Globulin Ratio 0.6 POC Glucose Preliminary micro results at discharge 03/30/25 14:35 Aerobic Susc Result 2 - Preliminary Bld Spc Aerobic Bld Cul Bottle 03/30/25 14:39 Blood Culture Result 2 - Preliminary Blood NO GROWTH AT 36-48 HOURS. FINAL TO FOLLOW. 03/30/25 14:51 Urine Culture - Preliminary Urine [place] Pending - Specimen sent to [facility] Discharge Plan Discharge Disposition: Home Health Service Condition: Good Discharge Medications: New carvedilol 6.25 mg Tablet 6.25 mg PO BID Qty: 60 11RF clonidine 0.1 mg/24 hr Patch Weekly 1 patch transdermal QWEEK Qty: 4 11RF magnesium oxide 400 mg (241.3 mg magnesium) Tablet 400 mg PO BID Qty: 60 11RF pantoprazole 40 mg Tablet,Delayed Release (Dr/Ec) 40 mg PO ACB Qty: 30 11RF Lactobacillus acidoph-L.bulgar [Floranex] 100 million cell Granules In Packet 1 packet PO BID Qty: 48 0RF potassium chloride 10 mEq Tablet,Er Particles/Crystals 20 meq PO BID Qty: 60 11RF aspirin 81 mg capsule 81 mg PO DAILY Qty: 30 11RF vancomycin 250 mg capsule 250 mg PO QID 10 Days Qty: 40 0RF Continued clonidine 0.2 mg/24 hr patch weekly 1 patch transdermal QWEEK fesoterodine 8 mg tablet extended release 24 hr 8 mg PO QDAY buspirone 7.5 mg tablet 7.5 mg PO TID carvedilol 12.5 mg tablet 12.5 mg PO TID potassium chloride 10 mEq tablet extended release 10 meq PO BID rosuvastatin 5 mg tablet 5 mg PO QPM tizanidine 4 mg tablet 8 mg PO TID PRN (Reason: muscle spasticity) Discontinued Koles 72 mcg capsule 72 mcg PO .qd Activity: resume usual activities as tolerated Diet: advance to your usual diet Print Language: Paraguayan Patient Instructions: Vancomycin (By mouth), Pantoprazole (By mouth), Magnesium (By mouth), Probiotic (By mouth), Acute Kidney Injury (DC), C. 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 Burciaga [phone]
[2025-04-03 05:42] LABS: Basophils Percent Auto 0.4 % (0.2-2.0); Eosinophils Absolute Auto 0.1 10^3/uL (0.0-0.7); Eosinophils Percent Auto 1.3 % (0.9-7.0); Hematocrit 32.9 % (36.0-48.0); Hemoglobin 11.5 g/dL (12.0-16.0); Immature Granulocytes Abs Auto 0.27 10^3/uL (0.00-0.03); Immature Granulocytes Pct Auto 3.2 % (0.0-0.5); Lymphocytes Absolute Auto 0.6 10^3/uL (1.2-3.8); Lymphocytes Percent Auto 6.9 % (20.5-60.0); Mean Corpuscular Hemoglobin 29.7 pg (26.7-34.0); Mean Platelet Volume 9.3 fL (9.5-13.5); Monocytes Absolute Auto 0.8 10^3/uL (0.3-0.8); Monocytes Percent Auto 9.7 % (1.7-12.0); Neutrophils Absolute Auto 6.7 10^3/uL (1.4-6.5); Neutrophils Percent Auto 78.5 % (43.0-75.0); Platelet Count 273 10^3/uL (150-450); Red Blood Count 3.87 10^6/uL (4.20-5.40); Red Cell Distribution Width 14.3 % (11.0-15.0); White Blood Count 8.5 10^3/uL (4.0-11.0)
[2025-04-03 06:11] LABS: Alanine Aminotransferase 29 U/L (14-59); Albumin Globulin Ratio 0.6; Albumin Level 1.6 g/dL (3.4-5.0); Alkaline Phosphatase 110 U/L (46-116); Anion Gap 7.9; Aspartate Amino Transferase 18 U/L (15-37); BUN Creatinine Ratio 16.7; Bilirubin Total 0.4 mg/dL (0.2-1.0); Calcium 8.6 mg/dL (8.5-10.1); Carbon Dioxide 32.8 mmol/L (21.0-32.0); Chloride 101 mmol/L (98-107); Estimated GFR (African America >60 (>=60 mL/min/1.73m^2); Estimated GFR (Non-African Ame >60 (>=60 mL/min/1.73m^2); Globulin 2.9 g/dL; Glucose 205 mg/dL (74-106); Magnesium 2.3 mg/dL (1.8-2.4); Potassium 3.7 mmol/L (3.5-5.1); Sodium 138 mmol/L (136-145); Total Protein 4.5 g/dL (6.4-8.2)
[2025-04-03 06:16] LABS: Troponin I High Sensitivity 84.5 pg/mL (4.0-51.3)
--- NOTE | 2025-04-03 08:50 | CM.NOTE ---
Rounds made with Dr. Burciaga, re-consult for PT evaluation prior to discharge. Pt at this time is set up for HH services with [facility]. Case Management will follow for any changes after PT evaluation. Possible discharge this afternoon.
[2025-04-03] MEDS: L. ACIDOPHILUS/L.BULGARICUS 1 PACKET GRAN.PACK PO (09:05)
[2025-04-03] MEDS: MAGNESIUM OXIDE 400 MG TABLET PO (09:05)
[2025-04-03] MEDS: CARVEDILOL 6.25 MG TABLET PO (09:05)
[2025-04-03] MEDS: HYOSCYAMINE SULFATE 0.125 MG TAB.SUBL SL ×2 (09:05→11:53)
[2025-04-03] MEDS: PANTOPRAZOLE SODIUM 40 MG TABLET.DR PO (09:05)
[2025-04-03] MEDS: SOLIFENACIN SUCCINATE 10 MG TABLET PO (09:05)
[2025-04-03] MEDS: POTASSIUM CHLORIDE 10 MEQ ER TABLET 20 MEQ PO (09:05)
[2025-04-03] MEDS: INSULIN ASPART 300 UNIT/3 ML PEN SUBQ ×2 (09:06→11:54)
--- NOTE | 2025-04-03 09:17 | CM.NOTE ---
2nd Important Message From Medicare discussed with pt, pt denies questions or concerns.
[2025-04-03] MEDS: CLONIDINE 1 PATCH TD (09:51)
[2025-04-03 11:28] LABS: Glucometer 152 mg/dL (74-106)
--- NOTE | 2025-04-03 11:31 | PT.DAILY ---
Physical Therapy Daily Note PT Daily Note/Assess Start: 03/31/25 11:38 Freq: Status: Active Protocol: Document 04/03/25 11:26 JORY (Rec: 04/03/25 11:30 [facility] [id number]) Physical Therapy Daily Note/Assessment Time In/Time Out Time In 10:30 Time Out 10:49 Pain In Pain N/A Pain Out Pain N/A Subjective Subjective Pt just finished working with OT. Pt sitting up in recliner. Agreeable to PT. Therapeutic Exercise Time Therapeutic Exercise 4 Minutes (minutes) Therapeutic Exercise 0 Units Therapeutic Exercise Treatment Therapeutic Exercise Seated bilat LE strengthening ex complete in BS chair Treatment to improve functional mobility prior to gait and transfers. Therapeutic Activity Time Therapeutic Activity 8 Minutes (minutes) Therapeutic Activity 1 Units Therapeutic Activity Treatment Chair Transfer Standby Assistance Ability Therapeutic Activity Sit>stand SBA with increased time. Pt amb 40' with RW, Comments CGA. Pt reports feeling like her knees want to buckle with amb but no LOB noticed. Pt returned to BS chair with call light within reach and needs met. Pt reports having power chair and SC at home. Would benefit from RW to maintain balance with amb - and to promote amb within the house. Total Physical Therapy Time Total Therapy 12 Minutes Total Physical 1 Therapy Units Summary Daily Note Summary Improved transfer and gait ability while using RW. Would recommend one for home use vs power chair to restore strength and endurance. Edit Result 04/03/25 11:26 JORY (Rec: 04/03/25 11:31 [id number] Physical Therapy Daily Note/Assessment Therapeutic Activity Treatment Therapeutic Activity Sit>stand SBA with increased time. Pt amb 50' with RW, Comments CGA. Pt reports feeling like her knees want to buckle with amb but no LOB noticed. Pt returned to BS chair with call light within reach and needs met. Pt reports having power chair and SC at home. Would benefit from RW to maintain balance with amb - and to promote amb within the house.
--- NOTE | 2025-04-03 11:52 | SWNOTE1 ---
Called and set up [facility] for dc. They will be here between 3:00-3:30.
--- NOTE | 2025-04-03 12:45 | CM.NOTE ---
Faxed discharge summary, med list and CRF to [facility] for discharge.
--- NOTE | 2025-04-03 12:45 | SWNOTE1 ---
Called [facility] to cancel scheduled time. Pt's sister will pick her up.
--- NOTE | 2025-04-03 13:17 | CM.NOTE ---
CRF put in pt's chart.
--- NOTE | 2025-04-04 14:52 | CM.DCFOLLOWU ---
Returned to hospital 04/04/25
== END 2025-04-03 14:27 | disposition home health service (06) | DRG 871 ==
LOC: ER 18:14 → MS 19:32
PROVIDERS: Nurse Practitioner Family; Admitting Provider Family Medicine; Emergency Provider Emergency Medicine; PCP Family Medicine; Visit Provider Family Medicine
DX: A41.89 Other specified sepsis (principal); E43 Unspecified severe protein-calorie malnutrition; I21.A1 Myocardial infarction type 2; N39.0 Urinary tract infection, site not specified; N17.9 Acute kidney failure, unspecified; N13.30 Unspecified hydronephrosis; E87.1 Hypo-osmolality and hyponatremia; D68.9 Coagulation defect, unspecified; R06.03 Acute respiratory distress; R33.9 Retention of urine, unspecified; I16.0 Hypertensive urgency; I10 Essential (primary) hypertension; G35 Multiple sclerosis; Z79.899 Other long term (current) drug therapy; Z90.710 Acquired absence of both cervix and uterus; E11.65 Type 2 diabetes mellitus with hyperglycemia; K52.9 Noninfective gastroenteritis and colitis, unspecified; R31.9 Hematuria, unspecified; L89.152 Pressure ulcer of sacral region, stage 2; E87.6 Hypokalemia; R79.89 Other specified abnormal findings of blood chemistry; D75.1 Secondary polycythemia; R65.20 Severe sepsis without septic shock; I95.9 Hypotension, unspecified; N32.0 Bladder-neck obstruction; E86.0 Dehydration; E83.42 Hypomagnesemia; Z91.81 History of falling; Z68.20 Body mass index [BMI] 20.0-20.9, adult
CPT/HCPCS: 36415; 51702; 70450; 71045; 74176; 80048; 80053; 80307; 80320; 81001; 82550; 82553; 82800; 82948; 83605; 83690; 83735; 83874; 83880; 84484; 85007; 85025; 85027; 85610; 87040; 87045; 87046; 87077; 87086; 87150; 87186; 87427; 87493; 93005; 93306; 94667; 94668; 94761; 96361; 96365; 97110; 97161; 97165; 97530; 97535; 99285; G0328; J0696; J1836; J2405; J3475; J3480

== ENCOUNTER 2025-04-04 11:00 | Observation (INO) | payer MEDICARE, MEDICAID, SELFPAY ==
--- OUTSIDE RECORDS SUMMARY | 2024-12-09 07:38 | XMS_ITS ---
Author Organization [facility] in [place] Address [address] [place] [address] Care Team Providers Care Cotton Picker Name Role Phone J Carlos Burciaga Primary Care Provider [phone] REASON FOR VISIT diarrhea Medications Medication SIG (Take, Route, Fr equency, Duration) Notes Start Date End Date Status Linzess 145 MCG 1 capsule at least 30 minutes before the first meal of the day on an empty stomach Orally Once a day for 30 days samples 08/23/2024 Active Encounters Encounter Location Date Provider Diagnosis [facility] [address] [place] [address] 12/09/2024 J Carlos Burciaga IBS (irritable miriam l syndrome) K58.9 Assessments Encounter Date Diagnosis (ICD Code) Assessment Notes Treatment Notes Treatment Clinical Notes Section Notes 12/09/2024 IBS (irritable bowel syndrome) (ICD-10 - K58.9) Plan Of Treatment Medication Medication Name Sig Start Date Stop Date Notes Linzess 145 MCG 1 capsule at least 3 0 minutes before the first meal of the day on an empty stomach Orally Once a day for 30 days 08/23/2024 Next Appt Details Provider Name:J Carlos Johann Burciaga, 11:15:00 AM, [address] [place], [address], Progress Notes * Jami WEINBERG EDOB:1970 (54 yo F)Acc No.[id number]:12/09/2024 Patient: Jami HAMMONDS :1970 A ge:54 Y S ex:Female Address:[address] [place] [address] * Refills Refill Linzess Capsule, 145 MCG, Orally, 30, 1 capsule at least 30 minutes before the first meal of the day on an empty stomach, Once a day, 30 days, Refills=11 * true * Date: Generated for Murali slaughter/Rajendra/Angelaitting on: 0 04/04/2025 11:06 AM EDT
--- OUTSIDE RECORDS SUMMARY | 2025-04-03 05:01 | XMS_ITS ---
Author Organization The [facility] in [place] Address [address] [facility] [place] [address] Care Team Providers Care Sales Consulting Director Name Role Phone J Carlos Burciaga Primary Care Provider REASON FOR VISIT [facility] Encounters Encounter Location Date Provider Diagnosis [facility] [address] [place] [address] 04/03/2025 J Carlos Burciaga Plan Of Treatment Next Appt Details Provider Name:J Carlos Wills Gilmercelio, 11:15:00 AM, [address] [place], [address], Progress Notes * Jami WEINBERG EDOB:1970 (55 yo F)Acc No.[id number]:04/03/2025 UNLOCKED PROGRESS NOTE Patient: Wilfrid Jami JOSE :1970 A ge:55 Y S ex:Female Address:[address] [place] [phone] * * Date:
[2025-04-04] VITALS (24 sets, daily range): BP systolic 106–140; BP diastolic 76–100; PULSE 95–119; TEMP 36.4–36.7; O2SAT 95–100; BMI 18.3; BMI 19.3
--- OUTSIDE RECORDS SUMMARY | 2025-04-04 07:14 | XMS_ITS ---
Author Organization The [facility] in [place] Address [address] [facility] [place] [address] Care Team Providers Care Sheet Rock Layer Name Role Phone J Carlos Burciaga Primary Care Provider REASON FOR VISIT ER Encounters Encounter Location Date Provider Diagnosis [facility] [address] [place] [address] 04/04/2025 J Carlos Gilmercelio Plan Of Treatment Next Appt Details Provider Name:J Carlos Wills Gilmercelio, 11:15:00 AM, [address] [facility] [place], [address], Progress Notes * Jami WEINBERG EDOB:1970 (55 yo F)Acc No.[id number]:04/04/2025 Patient: Wilfrid Jami JOSE :1970 A ge:55 Y S ex:Female Address:[address] [place] [address], [place] [address] * true * Date: Generated for Printi ng/Faxing/eTransmitting on: 0 04/04/2025 02:45 PM EDT
--- OUTSIDE RECORDS SUMMARY | 2025-04-04 11:06 | XMS_ITS | Encounter Summary ---
Author Organization [facility] Address [address] [place] [address] Care Team Providers Care Adjunct Phlebotomy Instructor Name Role Phone Chava Burciaga MD Primary Care Provider [phone] Encounter Details Date Type Department Care Team (Late Contact Info) Description 09/05/2023 Abstract [facility] [address] [place] [phone] Onel Dodge MD [address] [facility] [place] [phone] Social History Tobacco Use Types Packs/Day Years [...] 05/24/2025 11:00 AM EDT Office Visit [facility] [address] [phone] Onel Dodge MD [address] [facility] [address] [place] [phone] documented as of this encounter Visit Diagnoses Not on filedocumented in this encounter Care Teams Adjunct Phlebotomy Instructor Relationship Specialty Start Date End Date Chava Burciaga MD PCP - General Family Medicine 06/15/24 documented as of this encounter
--- OUTSIDE RECORDS SUMMARY | 2025-04-04 11:06 | XMS_ITS | Encounter Summary ---
Author Organization [facility] Address [address] [facility] [place] [address] Care Team Providers Care Furnace Room Supervisor Name Role Phone Chava Burciaga MD Primary Care Provider [phone] Encounter Details Date Type Department Care Team (Late st Contact Info) Description 04/03/2025 Telephone [facility] [address] [facility] [address] [place] [phone] Federica Romano, MORTGAGE PROFESSIONAL [address] [facility] [address], [place] [phone] Social History Tobacco Use Types Packs/Day Years [...] as of this encounter Miscellaneous Notes * Telephone Encounter - Corina Ramos - 04/04/2025 10:49 AM EDT Left message to advise per Dr. Dodge would recommend PT either at home or [facility]. Advised to call backto let office know either way. * Telephone Encounter - Onel Dodge MD - 04/04/2025 10:46 AM EDT See if she wants to do PT either at home or at [facility] * Telephone Encounter - Corina Desaius - 04/04/2025 10:14 AM EDT Called and spoke to patient. She states that this was her that left message and that he wasjust wanting to let Dr. Dodge know what was going on. States that she was in the hospital due to dehydration and due to this had an infection. States that she thinks she left the hospital to soon dueto barely being able to walk and left leg wanting to buckle. States that she is going to contact her PCP Dr. Burciaga to see what he recommends. * Telephone Encounter - Sherlyn Sebastian - 04/03/2025 3:24 PM EDT LVM to oscar sooner appt. * Telephone Encounter - Federica Romano NP - 04/03/2025 10:26 AM EDT leaves voicemail that is in hospital and asking if she should be seen sooner. She already does have appointment in May with Echo is next available unless Yuliya has opening. Please call back and ask what she is being hospitalized for. documented in this encounter Plan of Treatment Upcoming Encounters Date Type Department Care Team (Late st Contact Info) Description 05/24/2025 11:00 AM EDT Office Visit [facility] [address] [facility] [address] [place] [address] Onel Dodge MD [address] [place] [phone] documented as of this encounter Visit Diagnoses Not on filedocumented in this encounter Care Teams Furnace Room Supervisor Relationship Specialty Start Date End Date Chava Burciaga MD PCP - General Family Medicine 06/15/24 documented as of this encounter
--- OUTSIDE RECORDS SUMMARY | 2025-04-04 11:06 | XMS_ITS | Encounter Summary ---
Author Organization [facility] Address [address] [facility] [place] [address] Care Team Providers Care Lasting Machine Operator Bed Name Role Phone Chava Burciaga MD Primary Care Provider [phone] Encounter Details Date Type Department Care Team (Late Contact Info) Description 05/13/2023 Abstract [facility] [address] [place] [phone] Onel Dodge MD [address] [facility] [address] [place] [address] [phone] Social History Tobacco Use Types Packs/Day Years [...] 05/24/2025 11:00 AM EDT Office Visit [facility] [address] [facility] [address] [place] [address] [place] [phone] Onel Dodge MD [address] [facility] [address] [place] [phone] documented as of this encounter Visit Diagnoses Not on filedocumented in this encounter Care Teams Lasting Machine Operator Bed Relationship Specialty Start Date End Date Chava Burciaga MD PCP - General Family Medicine 06/15/24 documented as of this encounter
--- OUTSIDE RECORDS SUMMARY | 2025-04-04 11:07 | XMS_ITS | Patient Health Record ---
Author Organization The [facility] in [place] Address [address] [place] [address] Care Team Providers Care Roller Maker Name Role Phone J Carlos Burciaga Primary Care Provider [phone] Charissa Borrego [phone] Allergies Allergen (clinical drug ingredient) Drug/Non Drug Allergy documented on EMR Reaction Allergy Type Onset Date Status Amoxil hives Drug Allergy Active hydralazine hydrALAZINE HCl elevated HR Drug Allergy Active Substance with sulfonamide structure and antibacterial mechanism of action (substance) Sulfa Antibiotics hives Drug Allergy Active Results Component Value Reference Range Notes GLYCOHEMOGLOBIN A1C Reviewed date:09/24/2024 10:34:55 AM Interpretation: Performing Lab: Notes/Report: [facility] , Glycohemoglobin A1C 6.2 4.5-6.2 % ADA RECOMMENDED LIMIT 4.0 - 6.0 ADA THERAPEUTIC TARGET < 7.0 ACTION SUGGESTED > 7.0 Estimated Average Glucose 131 Performing Lab: see note ML - [facility] LB CBC AUTO DIFF Reviewed date:10/06/2024 07:16:47 PM Interpretation: Performing Lab: Notes/Report: [facility] , White Blood Count 23.4 4.0-11.0 [...] 9.4 9.5-13.5 fL Performing Lab: see note - [facility] LB Blood Culture 1 Reviewed date:10/12/2024 08:01:08 PM Interpretation: Performing Lab: Notes/Report: [facility] , Blood Culture 1 See Below For Report Blood Culture 1 NG5D NO GROWTH AT 5 DAYS. Performing Lab: see note ML - [facility] LB Blood Culture 2 Reviewed date:10/12/2024 08:01:08 PM Interpretation: Performing Lab: Notes/Report: [facility] , Blood Culture 2 See Below For Report Blood Culture 2 NG5D NO GROWTH AT 5 DAYS. Performing Lab: see note [facility] LB Manual Differential Reviewed date:10/06/2024 07:16:47 PM Interpretation: Performing Lab: Notes/Report: [facility] , Segmented Neutrophils % Manual 97.0 [...] 10 3/uL Basophils Abs Manual 0.00 0.00-0.10 1 0 3/uL Anisocytosis 1+ Ovalocytes 1+ Performing Lab: see note ML - [facility] LB CT abdomen pelvis w con Reviewed date:10/06/2024 07:16:47 PM Interpretation: Performing Lab: Notes/Report: Source Facility: [facility]-[address] [place] [address] [place] [address] CT Scan Report Signed Patient: JAMI CNONORS MR#: [id number] : 1970 Acct:[id number] Age/Sex: 54 / F ADM Date: 10/06/24 Loc: ER Attending Dr: Ordering Physician: Skylar Figueredo M.D. Date of Service: 10/06/24 Procedure(s): CT abdomen pelvis w con Accession Number(s): [id number] cc: Krishan Burciaga M.D. [place] [address] Patient Name: JAMI CONNORS MRN: [facility]:[id number] date: 1970 Sex: F Assigned Patient Location: ER Current Patient Location: ER Accession/Order Number: [id number] Exam Date: 10/06/2024 14:14 Report Date: 10/06/2024 [...] Merida M.D. Signed By: 10/06/24 1514 DD/ 1511 TD/TT: Receiver Bulk System: [place] [address] CT Scan Report Signed Patient: JAMI CONNORS MR#: [id number] : 1970 Acct:[id number] Age/Sex: 54 / F ADM Date: 10/06/24 Loc: ER Attending Dr: Ordering Physician: Skylar Figueredo M.D. Date of Service: 10/06/24 Procedure(s): CT abd omen pelvis w con Accession Number(s): [id number] cc: Krishan Burciaga M.D. [place] [address] Patient Name: JAMI CONNORS MRN: [facility]:[id number] date: 1970 Sex: F Assigned Patient Location: ER Current Patient Loca tion: ER Accession/Order Numb er: [id number] Exam Date: 14:14 Report Date: 10/06/2024 15:11 [...] is diffuse colonic distention and liquid stool wit hout discrete transition point. There is mild diffuse colonic thickening. APPENDIX: Not visualized PERITONEAL CAVITY: N o fluid. No fat stranding. ABDOMINAL WALL: No subcutaneous stranding. No subcutaneous fluid collection. LYMPH NODES: No mesenteric or retroperitoneal lymphadenopathy by CT criteria. ABDOMINAL AORTA: No aneurysm. PELVIS: No acute abnormality. MUSCULOSKELETAL: No acute osseous abnormality. C T/CT abdomen pelvis w con IMPRESSION: Findings are suggest maninder a colonic ileus. Mild diffuse colonic thickening. Correlate for colitis.. Electronically authenticated by: NOAH MERIDA Date: 10/06/2024 15:11 Dictated By: Mercy Merida M.D. Signed By: 10/06/241513 DD/ 10 TD/TT: Receiver Bulk System: CBC AUTO DIFF Reviewed date:10/09/2024 06:34:01 PM Interpretation: Performing Lab: Notes/Report: [facility] , White Blood Count 21.2 4.0-11.0 10 [...] 3/uL Performing Lab: see note ML - [facility] LB PROF 14(COMP METB) Reviewed date:10/09/2024 06:34:01 PM Interpretation: Performing Lab: Notes/Report: [facility] , Sodium 142 136-145 mmol/L Potassium 3.6 3.5-5.1 mmol/L Chloride 108 98-107 mmol/L Carbon Dioxide 25.8 21.0-32.0 mmol/L Anion Gap 11.8 Glucose 262 74-106 mg/dL Blood Urea Nitrogen 10.0 7.0-18.0 mg/dL Creatinine 0.84 0.55-1.02 mg/dL Estimated GFR ( Betina >60 >=60 mL/min/1.73m 2 Estimated GFR (Non- Bianak >60 >=60 mL/min/1.73m 2 BUN Creatinine Ratio 11.9 Calcium 8.9 8.5-10.1 mg/dL Bilirubin Total 0.3 0.2-1.0 mg/dL Aspartate Amino Transferase 17 15-37 U/L Alanine Aminotransferase 24 14-59 U/L Alkaline Phosphatase 86 46-116 U/L Total Protein 5.4 6.4-8.2 g/dL Albumin Level 2.6 3.4-5.0 g/dL Globulin 2.8 Albumin Globulin Ratio 0.9 Performing Lab: see note ML - [facility] LB BNP Reviewed date:03/30/2025 06:11:57 PM Interpretation: Performing Lab: Notes/Report: [facility] , NT Pro B Type Natriuretic Pept 1712.0 <=900.0 pg/mL RESULTS CALLED TO ASHLEY DURAN Performing Lab: see note ML - [facility] LB CARDIAC TAURUS ADMIT Reviewed date:03/30/2025 06:11:57 PM Interpretation: Performing Lab: Notes/Report: [facility] , Creatine Kinase 19 26-192 U/L Creatine Kinase MB 2.29 <=3.60 ng/mL Myoglobin 69 9-82 ng/mL Troponin I High Sensitivity 142.0 4.0-51.3 pg/mL RESULTS CALLED TO ASHLEY DURAN CUT-OFF POINTS HAVE BEEN ESTABLISHED BASED ON THE FOURTH UNIVERSAL DEFINITION OF MYOCARDIAL INFARCTION. THE UPPER REFERENCE LIMIT (URL) OF TROPONIN, DEFINED THE 99TH PERCENTILE OF cTnI DISTRIBUTION IN A REFERENCE POPULATION, HAS BEEN CONFIRMED THE DECISION THRESHOLD FOR ID DIAGNOSIS. 99TH PERCENTILE = 51.4 PG/ML NOTE: HIGH-SENSITIVITY TROPONIN ASSAY IS NOT INTENDED TO BE USED IN ISOLATION BUT SHOULD BE INTERPRETED IN CONJUNCTION WITH OTHER DIAGNOSTIC AND CLINICAL INFORMATION. Performing Lab: see note ML - [facility] LB CBC AUTO DIFF Reviewed date:03/30/2025 06:11:57 PM Interpretation: Performing Lab: Notes/Report: [facility] , White Blood Count 19.3 4.0-11.0 10 3/uL Red Blood Count 5.64 4.20-5.40 10 6/uL Hemoglobin 16.2 12.0-16.0 g/dL Hematocrit 47.0 36.0-48.0 % Mean Corpuscular Volume 83.3 81.0-99.0 fL Mean Corpuscular Hemoglobin 28.7 26.7-34.0 pg Mean Corpuscular HGB Conc 34.5 29.9-35.2 g/dL Red Cell Distribution Width 13.9 11.0-15.0 % Platelet Count 332 150-450 10 3/uL Mean Platelet Volume 10.1 9.5-13.5 fL Neutrophils Percent Auto 91.1 43.0-75.0 % Lymphocytes Percent Auto 1.8 20.5-60.0 % Monocytes Percent Auto 6.0 1.7-12.0 % Eosinophils Percent Auto 0.1 0.9-7.0 % Basophils Percent Auto 0.2 0.2-2.0 % Immature Granulocytes Pct Auto 0.8 0.0-0.5 % Neutrophils Absolute Auto 17.6 1.4-6.5 10 3/uL Lymphocytes Absolute Auto 0.3 1.2-3.8 10 3/uL Monocytes Absolute Auto 1.2 0.3-0.8 10 3/uL Eosinophils Absolute Auto 0.0 0.0-0.7 10 3/uL Basophils Absolute Auto 0.0 0.0-0.1 10 3/uL Immature Granulocytes Abs Auto 0.15 0.00-0.03 10 3/uL Performing Lab: see note ML - [facility] LB DRUG SCREEN RAPID (URINE) Reviewed date:03/30/2025 06:11:57 PM Interpretation: Performing Lab: Notes/Report: [facility] , Cannabinoid Screen Urine NEGATIVE NEGATIVE Phencyclidine Screen Urine NEGATIVE NEGATIVE Cocaine Screen Urine NEGATIVE NEGATIVE Methamphetamines Screen Urine NEGATIVE NEGATIVE Opiate Screen Urine NEGATIVE NEGATIVE Amphetamine Screen Urine NEGATIVE NEGATIVE Benzodiazepines Screen Urine NEGATIVE NEGATIVE Tricyclic Antidepressant Urine NEGATIVE NEGATIVE Methadone Screen Urine NEGATIVE NEGATIVE Barbiturates Screen Urine NEGATIVE NEGATIVE Oxycodone Screen Urine NEGATIVE NEGATIVE Buprenorphine Screen Urine NEGATIVE NEGATIVE DRUG CLASS TEST SYSTEM CUT-OFF CONCENTRATIONS ARE FOLLOWS: AMP (Amphetamine): 500 ng/mL BAR (Barbiturates): 200 ng/mL BZO (Benzodiazepines): 150 ng/mL BUP (Buprenorphine): 10 ng/mL SELINA (Cocaine): 150 ng/mL mAMP (Methamphetamine): 500 ng/mL MTD (Methadone): 200 ng/mL OPI (Opiates): 100 ng/mL OXY (Oxycodone): 100 ng/mL PCP (Phencyclidine): 25 ng/mL THC (Cannabinoids): 50 ng/mL TCA (Trycyclic Antidepressants): 300 ng/mL Performing Lab: see note ML - [facility] LB LACTATE or LACTIC ACID Reviewed date:03/30/2025 06:11:57 PM Interpretation: Performing Lab: Notes/Report: [facility] , Lactate/Lactic Acid 1.5 0.4-2.0 mmol/L Performing Lab: see note ML - [facility] LB LIPASE Reviewed date:03/30/2025 06:11:57 PM Interpretation: Performing Lab: Notes/Report: [facility] , Lipase 22.0 16.0-77.0 U/L Performing Lab: see note ML - [facility] LB PROF 14(COMP METB) Reviewed date:03/30/2025 06:11:57 PM Interpretation: Performing Lab: Notes/Report: [facility] , Sodium 135 136-145 mmol/L Potassium 2.9 3.5-5.1 mmol/L RESULTS YOUSIF D TO ASHLEY DURAN Chloride 94 98-107 mmol/L Carbon Dioxide 31.5 21.0-32.0 mmol/L Anion Gap 12.4 Glucose 359 74-106 mg/dL Blood Urea Nitrogen 78.0 7.0-18.0 mg/dL RESULT S CALLED TO ASHLEY DURAN Creatinine 2.47 0.55-1.02 mg/dL Estimated GFR ( Betina 25 >=60 mL/min/1.73m 2 Estimated GFR (Non- Bianka 20 >=60 mL/min/1.73m 2 BUN Creatinine Ratio 31.6 Calcium 9.3 8.5-10.1 mg/dL Bilirubin Total 1.0 0.2-1.0 mg/dL Aspartate Amino Transferase 16 15-37 U/L Alanine Aminotransferase 40 14-59 U/L Alkaline Phosphatase 180 46-116 U/L Total Protein 6.2 6.4-8.2 g/dL Albumin Level 2.3 3.4-5.0 g/dL Globulin 3.9 Albumin Globulin Ratio 0.6 Performing Lab: see note ML - [facility] UA (CLEAN or CATCH) MICROSCO PIC IF INDICATE Reviewed date:03/30/2025 06:11:57 PM Interpretation: Performing Lab: Notes/Report: [facility] , Color Urine YELLOW YELLOW Clarity Urine CLEAR CLEAR Specific [place] Urine 1.010 1.005-1.025 pH Urine 6.0 5.0-9.0 Protein Urine TRACE NEG/TRACE mg/dL Glucose Urine UA >=1000 NEGATIVE mg/dL Bilirubin Urine NEGATIVE NEGATIVE Ketones Urine NEGATIVE NEGATIVE mg/dL Blood Urine LARGE NEGATIVE Nitrite Urine NEGATIVE NEGATIVE Urobilinogen Urine 0.2 0.2-1.0 EU/dL Leukocyte Esterase Urine NEGATIVE NEGATIVE Urine Microscopic Indicated YES Performing Lab: see note ML - [facility] URINE MICROSCOPIC ONLY Reviewed date:03/30/2025 06:11:57 PM Interpretation: Performing Lab: Notes/Report: [facility] , WBC Urine NONE SEEN NONE SEEN #/HPF RBC Urine 10-20 0-2 #/HPF Bacteria Urine TRACE NONE SEEN #/HPF Mucus Urine NONE SEEN NONE SEEN Squamous Epithelial Cell Urine RARE NONE/RARE #/LPF Crystals Seen? None Seen None Seen #/HPF Cast Seen? NONE SEEN NONE SEEN #/LPF Urine Culture Indicated NO Performing Lab: see note ML - [facility] Prothrombin Time INR Reviewed date:03/30/2025 06:11:57 PM Interpretation: Performing Lab: Notes/Report: [facility] , Prothrombin Time 13.8 9.0-11.6 sec INR 1.34 DESIRED INR: 2.0-3.0 CONDITIONS NOT LISTED BELOW 2.5-3.5 FOR PROSTHETIC HEART VALVE REPLACEMENT 2.5-3.5 RECURRENT THROMBOSIS Performing Lab: see note ML - [facility] Troponin I High Sensitivity Reviewed date:03/30/2025 06:11:57 PM Interpretation: Performing Lab: Notes/Report: [facility] , Troponin I High Sensitivity 120.8 4.0-51.3 pg/mL RESULTS CALLED TO ASHLEY DURAN CUT-OFF POINTS HAVE BEEN ESTABLISHED BASED ON THE FOURTH UNIVERSAL DEFINITION OF MYOCARDIAL INFARCTION. THE UPPER REFERENCE LIMIT (URL) OF TROPONIN, DEFINED THE 99TH PERCENTILE OF cTnI DISTRIBUTION IN A REFERENCE POPULATION, HAS BEEN CONFIRMED THE DECISION THRESHOLD FOR ID DIAGNOSIS. 99TH PERCENTILE = 51.4 PG/ML NOTE: HIGH-SENSITIVITY TROPONIN ASSAY IS NOT INTENDED TO BE USED IN ISOLATION BUT SHOULD BE INTERPRETED IN CONJUNCTION WITH OTHER DIAGNOSTIC AND CLINICAL INFORMATION. Performing Lab: see note ML - [facility] LB Ethanol Reviewed date:03/30/2025 06:11:57 PM Interpretation: Performing Lab: Notes/Report: [facility] , Ethanol <3 NOTE: 80 mg/dl is the legal limit for a blood alcohol level Performing Lab: see note - [facility] Venous Blood Gas Reviewed date:03/30/2025 06:11:57 PM Interpretation: Performing Lab: Notes/Report: [facility] , pH VBG 7.511 7.330-7.430 PCO2 VBG 42.0 40.0-52.0 mmHg Performing Lab: see note - [facility] LB Aerobe ID + Suscept Reviewed date:04/03/2025 09:31:35 PM Interpretation: Performing Lab: Notes/Report: [facility] , Aerobe ID + Suscept See Below For Report Aerobe ID + Suscept O:STACAP Isolated Organism: 1.1 Antibiotic Interpretation KHADRA Status Aerobe ID + Suscept *ABNORMAL* Aerobe ID + Suscept O:STACAP Isolated Organism: 1.1 Antibiotic Interpretation KHADRA Status Aerobe ID + Suscept Gram positive cocci Aerobe ID + Suscept O:STACAP Isolated Organism: 1.1 Antibiotic Interpretation KHADRA Status Aerobe ID + Suscept *ABNORMAL* Aerobe ID + Suscept O:STACAP Isolated Organism: 1.1 Antibiotic Interpretation KHADRA Status Aerobe ID + Suscept Received aerobic bot tle only. Aerobe ID + Suscept O:STACAP Isolated Organism: 1.1 Antibiotic Interpretation KHADRA Status Aerobe ID + Suscept Identification and sensitivities to follow. Aerobe ID + Suscept O:STACAP Isolated Organism: 1.1 Antibiotic Interpretation KHADRA Status Aerobe ID + Suscept Organism: Staphyloco ccus capitis : Aerobe ID + Suscept O:STACAP Isolated Organism: 1.1 Antibiotic Interpretation KHADRA Status Aerobe ID + Suscept *ABNORMAL* Aerobe ID + Suscept O:STACAP Isolated Organism: 1.1 Antibiotic Interpretation KHADRA Status Aerobe ID + Suscept Based on susceptibil ity to oxacillin this isolate would be Aerobe ID + Suscept O:STACAP Isolated Organism: 1.1 Antibiotic Interpretation KHADRA Status Aerobe ID + Suscept susceptible to: Aerobe ID + Suscept O:STACAP Isolated Organism: 1.1 Antibiotic Interpretation KHADRA Status Aerobe ID + Suscept *Penicillinase-stabl e penicillins, such as: Aerobe ID + Suscept O:STACAP Isolated Organism: 1.1 Antibiotic Interpretation KHADRA Status Aerobe ID + Suscept Cloxacillin, Dicloxacillin, Nafcillin Aerobe ID + Suscept O:STACAP Isolated Organism: 1.1 Antibiotic Interpretation KHADRA Status Aerobe ID + Suscept *Beta-lactam combina tion agents, such as: Aerobe ID + Suscept O:STACAP Isolated Organism: 1.1 Antibiotic Interpretation KHADRA Status Aerobe ID + Suscept Amoxicillin-clavulan ic acid, Ampicillin-sulbactam, Aerobe ID + Suscept O:STACAP Isolated Organism: 1.1 Antibiotic Interpretation KHADRA Status Aerobe ID + Suscept Piperacillin-tazobactam Aerobe ID + Suscept O:STACAP Isolated Organism: 1.1 Antibiotic Interpretation KHADRA Status Aerobe ID + Suscept *Oral cephems, such as: Aerobe ID + Suscept O:STACAP Isolated Organism: 1.1 Antibiotic Interpretation KHADRA Status Aerobe ID + Suscept Cefaclor, Cefdinir, Cefpodoxime, Cefprozil, Cefuroxime, Aerobe ID + Suscept O:STACAP Isolated Organism: 1.1 Antibiotic Interpretation KHADRA Status Aerobe ID + Suscept Cephalexin, Loracarbef Aerobe ID + Suscept O:STACAP Isolated Organism: 1.1 Antibiotic Interpretation KHADRA Status Aerobe ID + Suscept *Parenteral cephems, such as: Aerobe ID + Suscept O:STACAP Isolated Organism: 1.1 Antibiotic Interpretation KHADRA Status Aerobe ID + Suscept Cefazolin, Cefepime, Cefotaxime, Cefotetan, Ceftaroline, Aerobe ID + Suscept O:STACAP Isolated Organism: 1.1 Antibiotic Interpretation KHADRA Status Aerobe ID + Suscept Ceftizoxime, Ceftria xone, Cefuroxime Aerobe ID + Suscept O:STACAP Isolated Organism: 1.1 Antibiotic Interpretation KHADRA Status Aerobe ID + Suscept *Carbapenems, such as: Aerobe ID + Suscept O:STACAP Isolated Organism: 1.1 Antibiotic Interpretation KHADRA Status Aerobe ID + Suscept Doripenem, Ertapenem , Imipenem, Meropenem Aerobe ID + Suscept O:STACAP Isolated Organism: 1.1 Antibiotic Interpretation KHADRA Status Aerobe ID + Suscept Received aerobic bot tle only. Aerobe ID + Suscept O:STACAP Isolated Organism: 1.1 Antibiotic Interpretation KHADRA Status Aerobe ID + Suscept Staphylococcus capitis Aerobe ID + Suscept O:STACAP Isolated Organism: 1.1 Antibiotic Interpretation KHADRA Status Aerobe ID + Suscept See Below For Report Aerobe ID + Suscept O:STACAP Isolated Organism: 1.1 Antibiotic Interpretation KHADRA Status Aerobe ID + Suscept Performed at: [facility] Aerobe ID + Suscept O:STACAP Isolated Organism: 1.1 Antibiotic Interpretation KHADRA Status Aerobe ID + Suscept [address] [place], [place] [id number] Aerobe ID + Suscept O:STACAP Isolated Organism: 1.1 Antibiotic Interpretation KHADRA Status Aerobe ID + Suscept Oil [employer] Tool Operator: Leah Reynaga PhD, Phone: [phone] Aerobe ID + Suscept O:STACAP Isolated Organism: 1.1 Antibiotic Interpretation KHADRA Status Aerobe ID + Suscept See Below For Report Aerobe ID + Suscept O:STACAP Isolated Organism: 1.1 Antibiotic Interpretation KHADRA Status Aerobe ID + Suscept Ciprofloxacin I F Aerobe ID + Suscept O:STACAP Isolated Organism: 1.1 Antibiotic Interpretation KHADRA Status Aerobe ID + Suscept Erythromycin S F Aerobe ID + Suscept O:STACAP Isolated Organism: 1.1 Antibiotic Interpretation KHADRA Status Aerobe ID + Suscept Gentamicin S F Aerobe ID + Suscept O:STACAP Isolated Organism: 1.1 Antibiotic Interpretation KHADRA Status Aerobe ID + Suscept Levofloxacin S F Aerobe ID + Suscept O:STACAP Isolated Organism: 1.1 Antibiotic Interpretation KHADRA Status Aerobe ID + Suscept Moxifloxacin S F Aerobe ID + Suscept O:STACAP Isolated Organism: 1.1 Antibiotic Interpretation KHADRA Status Aerobe ID + Suscept Oxacillin S F Aerobe ID + Suscept O:STACAP Isolated Organism: 1.1 Antibiotic Interpretation KHADRA Status Aerobe ID + Suscept Penicillin R F Aerobe ID + Suscept O:STACAP Isolated Organism: 1.1 Antibiotic Interpretation KHADRA Status Aerobe ID + Suscept Rifampin S F Aerobe ID + Suscept O:STACAP Isolated Organism: 1.1 Antibiotic Interpretation KHADRA Status Aerobe ID + Suscept Tetracycline S F Aerobe ID + Suscept O:STACAP Isolated Organism: 1.1 Antibiotic Interpretation KHADRA Status Aerobe ID + Suscept Trimethoprim/Sulfame thoxa zole R F Aerobe ID + Suscept O:STACAP Isolated Organism: 1.1 Antibiotic Interpretation KHADRA Status Aerobe ID + Suscept Vancomycin S F Aerobe ID + Suscept O:STACAP Isolated Organism: 1.1 Antibiotic Interpretation KHADRA Status Aerobe ID + Suscept Clindamycin S F Aerobe ID + Suscept O:STACAP Isolated Organism: 1.1 Antibiotic Interpretation KHADRA Status Performing Lab: see note LC - [facility] LB SEE REPORT - Leather Dresser Id information not found for 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 LB ECG 12 lead Reviewed date:04/02/2025 04:44:57 PM Interpretation: Performing Lab: Notes/Report: Source Facility: [facility]-[address] [place] [address] [place] [address] Electrocardiograph Report Signed Patient: JAMI CONNORS MR#: [id number] : 1970 Acct:[id number] Age/Sex: 55 / F ADM Date: 03/30/25 Loc: [place] 217-[address]: Krishan Burciaga M.D. Ordering Physician: Ashley Duran Date of Service: 03/30/25 Procedure(s): ECG 12 lead Accession Number(s): [id number] cc: [facility] Test Date: 2025-03-30 Pat Name: JAMI CONNORS Department: Room: - Gender: Female Manager Basketball: : 1970 Requested By: Order Number: [id number] Reading MD: MOISE MCNULTY M.D. Measurements Intervals [place] Rate: 143 P: 69 OK: 152 QRS: 66 QRSD: 88 T: 106 QT: 294 QTc: 377 Interpretive Statements 1120 Sinus tachycardia [address] depression [address] [place] abnormality 6220 Possible left atrial enlargement 9150 abnormal ECG Compared to ECG 05/23/2021 19:00:28 ST (T wave) deviation now present Heart rate has increased Electronically Signed On 03-30-2025 21:13:45 EDT by MOISE MCNULTY M.D. Dictated By: MOISE MCNULTY Signed By: 03/30/252112 DD/ 1421 TD/TT: Receiver Bulk System: [place] [address] Electrocardiograph Report Signed Patient: JAMI CONNORS MR#: [id number] : 1970 Acct:[id number] Age/Sex: 55 / F ADM Date: 03/30/25 Loc: [place] 217-[address]: Spring Burciaga M.D. Ordering Physician: Ashley Duran Date of Service: 03/30/25 Procedure(s): ECG 12 lead Accession Number(s): [id number] cc: [facility] Test Date: 2025-03-30 Pat Name: JAMI RACHANA Quiroz Department: 27 Room: - Gender: Female Manager Basketball: : 1970 Requ ested By: Order Number: [id number] Reading MD: MOISE MCNULTY M.D. Measurements Intervals [place] Rate: 143 P: 69 OK: 152 QRS: 66 QRSD: 88 T: 106 QT: 294 QTc: 377 Interpretive Statements 1120 Sinus tachycardia [address] depression [address] [place] abnormality 6220 Possible left a trial enlargement 9150 abnormal ECG Compared to ECG 05/23/2021 19:00:28 ST (T wave) deviatio n now present Heart rate has increased Electronically Abbey d On 03-30-2025 21:13:45 EDT by MOISE MCNULTY M.D. Dictated By: MOISE MCNULTY Signed By: 03/30/252112 DD/ 1421 TD/TT: Receiver Bulk System: CT head/brain wo con Reviewed date:03/30/2025 06:11:57 PM Interpretation: Performing Lab: Notes/Report: Source Facility: [place] [address] CT Scan Report Signed Patient: JAMI CONNORS MR#: [id number] : 1970 Acct:[id number] Age/Sex: 55 / F ADM Date: 03/30/25 Loc: ER Attending Dr: Ordering Physician: Ashley Duran Date of Service: 03/30/25 Procedure(s): CT head/brain wo con Accession Number(s): [id number] cc: Krishan Burciaga M.D. [place] [address] Patient Name: JAMI CONNORS MRN: [id number] date: 1970 Sex: F Assigned Patient Location: ED.MAIN Current Patient Location: ER Accession/Order Number: [id number] Exam Date: 03/30/2025 15:48 Report Date: 03/30/2025 15:53 At the request of: ASHLEY DURAN Procedure: CT head/brain wo con CT head/brain wo con 03/30/2025 3:33 PM SIGNS AND SYMPTOMS: Dehydration, weakness, Ceasar on forehead after fall TECHNIQUE:Multi-detector CT axial slices of the brain were obtained without IV contrast. CT was performed with one or more of the following dose reduction techniques: Automated exposure control, adjustment of the mA and/or kV according to patient size, or use of iterative reconstruction technique. COMPARISON: 04/14/2021 FINDINGS: There is no shift of the midline structures, acute intracranial bleeding, mass effects, or evidence of acute ischemia. Atherosclerotic changes are noted in the intracranial segments of the internal carotid arteries. There is age-related cortical atrophy with periventricular white matter hypoattenuation. The ventricular system is normal in size. The brainstem and the cerebellum are unremarkable. The visualized intraorbital contents, the visualized paranasal sinuses, and the infratemporal soft tissues show no acute abnormality. The osseous structures in the skull base and the calvarium show no abnormality. CT/CT head/brain wo con IMPRESSION: No acute intracranial pathology. Chronic age-related degenerative changes are noted as above. Impression dictated by: Taurus Elias M.D. 03/30/2025 3:53 PM Dictation Location: [place] [address] Electronically authenticated by: [id number] Y Date: 03/30/2025 15:53 Dictated By: Taurus Elias M.D. Signed By: 03/30/25 1556 DD/ 1553 TD/TT: Receiver Bulk System: [place] [address] CT Scan Report Signed Patient: JAMI CONNORS MR#: [id number] : 1970 Acct:[id number] Age/Sex: 55 / F ADM Date: 03/30/25 Loc: ER Attending Dr: Ordering Physician: Ashley Duran Date of Service: 03/30/25 Procedure(s): CT head/brain wo con Accession Number(s): [id number] cc: Krishan Burciaga M.D. [place] [id number] Patient Name: JAMI CONNORS MRN: [id number] date: 1970 Sex: F Assigned Patient Location: ED.MAIN Current Patient Loca tion: ER Accession/Order Numb er: [id number] Exam Date: 03/30/2025 15:48 Report Date: 03/30/2025 15:53 At the request of: ASHLEY DURAN Procedure: CT head/b rain wo con CT head/brain wo con 03/30/2025 3:33 PM SIGNS AND SYMPTOMS: Dehydration, weakness, Ceasar on forehead after fall TECHNIQUE:Multi-dete ctor CT axial slices of the brain were obtained without IV contrast. CT was performed with one or more of the following dose reduction techniques: Automate d exposure control, adjustment of the mA and/or kV according to patient size, or use of iterative reconstruction technique. COMPARISON: 04/14/2021 FINDINGS: There is n o shift of the midline structures, acute intracranial bleeding, mass effec ts, or evidence of acute ischemia. Atherosclerotic changes are noted in the intracranial segments of the internal carotid arteries. There is age-related cortical atrophy with periventricular white matter hypoattenuati on. The ventricular system is normal in size. The brainstem and the cerebellum are unremarkable. The visualized intraorbital contents, the visual ized paranasal sinuses, and the infratemporal soft tissues show no acute abnormality. The osseous structures in the skull base and the calvarium show no abnormality. C T/CT head/brain wo con IMPRESSION: No acute intracrania l pathology. Chronic age-related degenerative changes are noted as above. Impression dictated by: Taurus Elias M.D. 03/30/2025 3:53 PM Dictation Location: [place] [address] Electronically authenticated by: [id number] Y Date: 03/30/2025 15:53 Dictated By: Taurus Elias M.D. Signed By: 03/30/25 1556 DD/ 1553 TD/TT: Receiver Bulk System: XR chest 1V Reviewed date:03/30/2025 06:11:57 PM Interpretation: Performing Lab: Notes/Report: Source Facility: [place] [address] XRay Report Signed Patient: JAMI CONNORS MR#: [id number] : 1970 Acct:[id number] Age/Sex: 55 / F ADM Date: 03/30/25 Loc: ER Attending Dr: Ordering Physician: Ashley Duran Date of Service: 03/30/25 Procedure(s): XR chest 1V Accession Number(s): [id number] cc: Krishan Burciaga M.D.; Ashley Duran [place] [id number] Patient Name: JAMI CONNORS MRN: [id number] date: 1970 Sex: F Assigned Patient Location: ED.MAIN Current Patient Location: ER Accession/Order Number: [id number] Exam Date: 03/30/2025 16:04 Report Date: 03/30/2025 16:05 At the request of: ASHLEY DURAN Procedure: XR chest 1V XR chest 1V 03/30/2025 3:33 PM SIGNS AND SYMPTOMS: Dehydration, weakness, fall AMS PROTOCOL: Frontal radiograph of the chest COMPARISON: 05/19/2021 FINDINGS: The trachea is midline. The heart and mediastinal structures are within normal limits. The lung parenchyma is clear. The bony thorax is intact. XR/XR chest 1V IMPRESSION: No acute cardiopulmonary pathology. Impression dictated by: Taurus Elias M.D. 03/30/2025 4:05 PM Dictation Location: [place] [address] Electronically authenticated by: [id number] Y Date: 03/30/2025 16:05 Dictated By: Taurus Elias M.D. Signed By: 03/30/25 1607 DD/ 04 TD/TT: Receiver Bulk System: [place] [address] XRay Report Signed Patient: JAMI CONNORS MR#: [id number] : 1970 Acct:[id number] Age/Sex: 55 / F ADM Date: 03/30/25 Loc: ER Attending Dr: Ordering Physician: Ashley Duran Date of Service: 03/30/25 Procedure(s): XR chest 1V Accession Number(s): [id number] cc: Krishan Burciaga M.D. ; Ashley Duran [place] [id number] Patient Name: JAMI CONNORS MRN: [id number] date: 1970 Sex: F Assigned Patient Location: ED.MAIN Current Patient Loca tion: ER Accession/Order Numb er: [id number] Exam Date: 03/30/2025 16:04 Report Date: 03/30/2025 16:05 At the request of: ASHLEY DURAN Procedure: XR chest 1V XR chest 1V 3:33 PM SIGNS AND SYMPTOMS: Dehydration, weakness, fall AMS PROTOCOL: Frontal radiograph of the chest COMPARISON: 05/19/2021 FINDINGS: The trachea is midli ne. The heart and mediastinal structures are within normal limits. The l lonnie parenchyma is clear. The bony thorax is intact. X R/XR chest 1V IMPRESSION: No acute cardiopulmo nary pathology. Impression dictated by: Taurus Elias M.D. 03/30/2025 4:05 PM Dictation Location: [facility] Electronically authenticated by: [id number] Y Date: 03/30/2025 16:05 Dictated By: Taurus Elias M.D. Signed By: 03/30/25 1607 DD/ 160 TD/TT: Receiver Bulk System: [facility] ADMIT Reviewed date:03/30/2025 08:15:30 PM Interpretation: Performing Lab: Notes/Report: [facility] , Creatine Kinase 25 26-192 U/L Creatine Kinase MB 2.45 <=3.60 ng/mL Myoglobin 55 9-82 ng/mL Troponin I High Sensitivity 167.6 4.0-51.3 pg/mL RESULTS CALLED TO Melvin Boyd RN @BY Alberto Little [place] at 1948 CUT-OFF POINTS HAVE BEEN ESTABLISHED BASED ON THE FOURTH UNIVERSAL DEFINITION OF MYOCARDIAL INFARCTION. THE UPPER REFERENCE LIMIT (URL) OF TROPONIN, DEFINED THE 99TH PERCENTILE OF cTnI DISTRIBUTION IN A REFERENCE POPULATION, HAS BEEN CONFIRMED THE DECISION THRESHOLD FOR ID DIAGNOSIS. 99TH PERCENTILE = 51.4 PG/ML NOTE: HIGH-SENSITIVITY TROPONIN ASSAY IS NOT INTENDED TO BE USED IN ISOLATION BUT SHOULD BE INTERPRETED IN CONJUNCTION WITH OTHER DIAGNOSTIC AND CLINICAL INFORMATION. Performing Lab: see note ML - [facility] LB LACTATE or LACTIC ACID Reviewed date:03/30/2025 08:15:30 PM Interpretation: Performing Lab: Notes/Report: Comment 3 hours after first one [facility] , Lactate/Lactic Acid 2.4 0.4-2.0 mmol/L RESULTS CALLED TO Melvin Boyd RN @BY Alberto Little [place] at 1948 Performing Lab: see note ML - [facility] LB LACTATE or LACTIC ACID Reviewed date:04/02/2025 04:44:57 PM Interpretation: Performing Lab: Notes/Report: [facility] , Lactate/Lactic Acid 1.5 0.4-2.0 mmol/L Performing Lab: see note ML - [facility] LB Troponin I High Sensitivity Reviewed date:04/02/2025 04:44:57 PM Interpretation: Performing Lab: Notes/Report: [facility] , Troponin I High Sensitivity 144.0 4.0-51.3 pg/mL RESULTS CALLED TO Melvin Hoffmann RN @BY Alberto Little [place] at 2220 CUT-OFF POINTS HAVE BEEN ESTABLISHED BASED ON THE FOURTH UNIVERSAL DEFINITION OF MYOCARDIAL INFARCTION. THE UPPER REFERENCE LIMIT (URL) OF TROPONIN, DEFINED THE 99TH PERCENTILE OF cTnI DISTRIBUTION IN A REFERENCE POPULATION, HAS BEEN CONFIRMED THE DECISION THRESHOLD FOR ID DIAGNOSIS. 99TH PERCENTILE = 51.4 PG/ML NOTE: HIGH-SENSITIVITY TROPONIN ASSAY IS NOT INTENDED TO BE USED IN ISOLATION BUT SHOULD BE INTERPRETED IN CONJUNCTION WITH OTHER DIAGNOSTIC AND CLINICAL INFORMATION. Performing Lab: see note ML - [facility] LB ECG 12 lead Reviewed date:04/02/2025 04:44:57 PM Interpretation: Performing Lab: Notes/Report: Source Facility: [facility]-[address] [place] [address] [place] [address] Electrocardiograph Report Signed Patient: JAMI CONNORS MR#: [id number] : 1970 Acct:[id number] Age/Sex: 55 / F ADM Date: 03/30/25 Loc: MS 217- Attending Dr: Krishan Burciaga M.D. Ordering Physician: Krishan Burciaga M.D. 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 Measurements Intervals [place] Rate: 98 P: 74 OK: 131 QRS: 46 QRSD: 75 T: 82 QT: 376 QTc: 481 Interpretive Statements SINUS RHYTHM LEFT ATRIAL ENLARGEMENT [-0.15mV P WAVE IN V1/V2] SEPTAL MYOCARDIAL INFARCTION [40+ ms Q WAVE IN V1/V2], OF INDETERMINATE AGE Abnormal ECG Compared to ECG 03/30/2025 14:21:28 Myocardial infarct finding now present ST (T wave) deviation no longer present Electronically Signed On 03-31-2025 17:33:31 EDT by MOISE MCNULTY M.D. Dictated By: MOISE MCNULTY Signed By: 03/31/25 981 DD/ 6703 TD/TT: Receiver Bulk System: [place] [address] Electrocardiograph Report Signed Patient: JAMI CONNORS MR#: [id number] : 1970 Acct:[id number] Age/Sex: 55 / F ADM Date: 03/30/25 Loc: MS 217- Attending Dr: Spring Burciaga M.D. Ordering Physician: Krishan Burciaga M.D. Date of Service: 03/30/25 Procedure(s): ECG 12 lead Accession Number(s): [id number] cc: [facility] Test Date: 2025-03-30 Pat Name: JAMI Quiroz Department: 27 Room: [facility] Gender: Female Manager Basketball: : 1970 Requ ested By: KRISHAN BURCIAGA Order Number: [id number] Reading MD: MOISE MCNULTY M.D. Measurements Intervals [place] Rate: 98 P: 74 OK: 131 QRS: 46 QRSD: 75 T: 82 QT: 376 QTc: 481 Interpretive Statements SINUS RHYTHM LEFT ATRIAL ENLARGEM ENT [-0.15mV P WAVE IN V1/V2] SEPTAL MYOCARDIAL INFARCTION [40+ ms Q WAVE IN V1/V2], OF INDETERMINATE AGE Abnormal ECG Compared to ECG 03/30/2025 14:21:28 Myocardial infarct finding now present ST (T wave) deviatio n no longer present Electronically Abbey d On 03-31-2025 17:33:31 EDT by MOISE MCNULTY M.D. Dictated By: MOISE MCNULTY Signed By: 03/31/25 866 DD/ 889 TD/TT: Receiver Bulk System: BNP Reviewed date:04/02/2025 04:44:57 PM Interpretation: Performing Lab: Notes/Report: [facility] , NT Pro B Type Natriuretic Pept 766.0 <=900.0 pg/mL Performing Lab: see note ML - [facility] LB CBC AUTO DIFF Reviewed date:04/02/2025 04:44:57 PM Interpretation: Performing Lab: Notes/Report: [facility] , White Blood Count 11.0 4.0-11.0 10 3/uL Red Blood Count 3.80 4.20-5.40 10 6/uL Hemoglobin 11.2 12.0-16.0 g/dL Hematocrit 33.0 36.0-48.0 % Mean Corpuscular Volume 86.8 81.0-99.0 fL Mean Corpuscular Hemoglobin 29.5 26.7-34.0 pg Mean Corpuscular HGB Conc 33.9 29.9-35.2 g/dL Red Cell Distribution Width 14.0 11.0-15.0 % Platelet Count 219 150-450 10 3/uL Mean Platelet Volume 10.4 9.5-13.5 fL Performing Lab: see note ML - [facility] LB MAGNESIUM Reviewed date:04/02/2025 04:44:57 PM Interpretation: Performing Lab: Notes/Report: [facility] , Magnesium 1.4 1.8-2.4 mg/dL Performing Lab: see note ML - [facility] LB PROF 14(COMP METB) Reviewed date:04/02/2025 04:44:57 PM Interpretation: Performing Lab: Notes/Report: [facility] , Sodium 143 136-145 mmol/L Potassium 2.8 3.5-5.1 mmol/L RESULTS CALLED TO Gris Boyd RN @BY Alberto Little [place] at 0627 Chloride 105 98-107 mmol/L Carbon Dioxide 29.2 21.0-32.0 mmol/L Anion Gap 11.6 Glucose 175 74-106 mg/dL Blood Urea Nitrogen 59.0 7.0-18.0 mg/dL Creatinine 1.16 0.55-1.02 mg/dL Estimated GFR ( Betina 59 >=60 mL/min/1.73m 2 Estimated GFR (Non- Bianka 49 >=60 mL/min/1.73m 2 BUN Creatinine Ratio 50.9 Calcium 7.9 8.5-10.1 mg/dL Bilirubin Total 0.4 0.2-1.0 mg/dL Aspartate Amino Transferase 28 15-37 U/L Alanine Aminotransferase 35 14-59 U/L Alkaline Phosphatase 119 46-116 U/L Total Protein 4.2 6.4-8.2 g/dL Albumin Level 1.4 3.4-5.0 g/dL Globulin 2.8 Albumin Globulin Ratio 0.5 Performing Lab: see note ML - [facility] LB PROF CHEM 8 (BAS METB) Reviewed date:04/02/2025 04:44:57 PM Interpretation: Performing Lab: Notes/Report: [facility] , Sodium 143 136-145 mmol/L Potassium 2.8 3.5-5.1 mmol/L RESULTS YOUSIF D TO KATY ARREDONDO RN Chloride 107 98-107 mmol/L Carbon Dioxide 27.6 21.0-32.0 mmol/L Anion Gap 11.2 Glucose 129 74-106 mg/dL Blood Urea Nitrogen 42.0 7.0-18.0 mg/dL Creatinine 0.84 0.55-1.02 mg/dL Estimated GFR ( Betina >60 >=60 mL/min/1.73m 2 Estimated GFR (Non- Bianka >60 >=60 mL/min/1.73m 2 BUN Creatinine Ratio 50.0 Calcium 7.8 8.5-10.1 mg/dL Performing Lab: see note ML - [facility] LB Manual Differential Reviewed date:04/02/2025 04:44:57 PM Interpretation: Performing Lab: Notes/Report: [facility] , Segmented Neutrophils % Manual 89.0 43.0-75.0 Lymphocytes Percent Manual 2.0 20.5-60.0 % Monocytes Percent Manual 7.0 1.7-12.0 % Eosinophils Percent Manual 2.0 0.9-7.0 % Basophils Percent Manual 0.0 0.2-2.0 % Segmented Neut Absolute Manual 9.79 1.4-6.5 10 3/uL Lymphocytes Absolute Manual 0.22 1.20-3.80 10 3/uL Monocytes Absolute Manual 0.77 0.30-0.80 10 3/uL Eosinophils Absolute Manual 0.22 0.00-0.70 10 3/uL Basophils Abs Manual 0.00 0.00-0.10 1 0 3/uL Performing Lab: see note ML - [facility] LB Troponin I High Sensitivity Reviewed date:04/02/2025 04:44:57 PM Interpretation: Performing Lab: Notes/Report: [facility] , Troponin I High Sensitivity 126.7 4.0-51.3 pg/mL RESULTS CALLED TO Gris Boyd RN @BY Alberto Little [place] at 0667 CUT-OFF POINTS HAVE BEEN ESTABLISHED BASED ON THE FOURTH UNIVERSAL DEFINITION OF MYOCARDIAL INFARCTION. THE UPPER REFERENCE LIMIT (URL) OF TROPONIN, DEFINED THE 99TH PERCENTILE OF cTnI DISTRIBUTION IN A REFERENCE POPULATION, HAS BEEN CONFIRMED THE DECISION THRESHOLD FOR ID DIAGNOSIS. 99TH PERCENTILE = 51.4 PG/ML NOTE: HIGH-SENSITIVITY TROPONIN ASSAY IS NOT INTENDED TO BE USED IN ISOLATION BUT SHOULD BE INTERPRETED IN CONJUNCTION WITH OTHER DIAGNOSTIC AND CLINICAL INFORMATION. Performing Lab: see note ML - [facility] LB C. Difficile PCR Reviewed date:04/02/2025 04:44:57 PM Interpretation: Performing Lab: Notes/Report: [facility] , C. Difficile PCR POSITIVE RESULTS CATHERINE LED TO KATY ANN RN at 1158 Performing Lab: see note ML - [facility] LB Salmonella/Shigella Screen Reviewed date:04/03/2025 09:31:35 PM Interpretation: Performing Lab: Notes/Report: [facility] , Salmonella/Shigella Screen See Below For Report Salmonella/Shigella Screen Salmonella/Shigella Screen No Salmonella or Shigella recovered. Salmonella/Shigella Screen Performing Lab: see note LC - [facility] LB Occult Blood* Reviewed date:04/02/2025 04:44:57 PM Interpretation: Performing Lab: Notes/Report: [facility] , Occult Blood Positive Performing Lab: see note ML - [facility] LB CA echo doppler complete Reviewed date:04/02/2025 04:44:57 PM Interpretation: Performing Lab: Notes/Report: Source Facility: [facility]-[address] [place] [address] [address] [place] [address] Cardiology Report Signed Patient: JAMI CONNORS MR#: [id number] : 1970 Acct:[id number] Age/Sex: 55 / F ADM Date: 03/30/25 Loc: MS 217-[address]: Krishan Burciaga M.D. Ordering Physician: Krishan Burciaga M.D. Date of Service: 03/31/25 Procedure(s): CA echo doppler complete Accession Number(s): [id number] cc: Krishan Burciaga M.D. Patient Name: JAMI CONNORS MR#: [id number] : 1970 Exam Date: 03/31/2025 Ordering Doctor: DR KRISHAN BURCIAGA . ECHOCARDIOGRAM REPORT PROCEDURE: CA ECHO DOPPLER COMPLETE INDICATIONS: NSTEMI, hypertension, multiple sclerosis COMPARISON: None. DESCRIPTION: COMPLETE ECHOCARDIOGRAM Real-time transthoracic echocardiography with 2D, M-mode, spectral and color flow Doppler performed. QUALITY: Technical quality was good. LEFT VENTRICLE: Normal chamber size. Thickened septal wall. Normal systolic function. LV EF: Calculated left ventricular ejection fraction is 58%. Normal left ventricular ejection fraction, (>55%). DIASTOLIC: Normal diastolic function. ATRIAL SEPTUM: LEFT ATRIUM: Normal chamber size. RIGHT ATRIUM: Normal chamber size. RIGHT VENTRICLE: Normal chamber size. Normal right ventricular systolic function. TRICUSPID VALVE: Normal mobility and thickness. No stenosis with mild regurgitation. No evidence of pulmonary hypertension. RVSP 25 mmHg MITRAL VALVE: Normal mobility and thickness. No evidence of mitral valve stenosis. There is no mitral annular calcification. No mitral regurgitation. AORTIC VALVE: Normal trileaflet appearance. No visible sclerosis. Normal leaflet mobility. No evidence of aortic valve stenosis. No aortic regurgitation. AORTIC ROOT: Normal diameter and appearance, measuring 3.1 cm. PULMONIC VALVE: Normal thickness and mobility. No stenosis. No regurgitation. PERICARDIUM: No evidence of pericardial effusion. IVC: Not well visualized. PLEURA: CONCLUSION: 1. Normal ventricular size and function. Estimated LVEF is 55-60%. 2. Mild tricuspid regurgitation. 3. Normal right-sided pressures. Adult Echocardiography Procedure Report Left Ventricle LVEDD (3.7 - 5.6 cm): 3.51 cm LVESD (2.2 - 4.0 cm): 2.69 cm LVIVS thickness (0.6 - 1.2 cm): 1.19 cm LVPW thickness (0.5 - 1.0 cm): 0.92 cm e': 0.10 m/s E - e': 7.70 LVOT Max Gradient: 5.94 mm[Hg] LVOT Area (cm2): 1.22 m/s Peak Velocity (LVOT): 1.22 m/s Mean Velocity (LVOT): 0.92 m/s LVOT Diameter 2.03 cm Left Atrium LA Volume Index (2D A2C): 19.95 ml/m2 Left Atrium Systolic Dimension: 2.37 cm Mitral Valve MV E to A Ratio: 0.91 Mitral Valve A-Wave Peak Velocity: 0.81 m/s Mitral Valve E-Wave Peak Velocity: 0.74 m/s Right Ventricle Aorta AO Root Diam: 3.05 cm Aortic Valve AoV Area (Peak Abisai): 2.92 cm2, 2.92 cm2 AoV Area (VTI): 3.00 cm2, 3.00 cm2 Peak Velocity(Antegrade Flow): 1.35 m/s Peak Gradient(Antegrade Flow): 7.26 mm[Hg] Mean Velocity(Antegrade Flow): 0.91 m/s Mean Gradient(Antegrade Flow): 3.82 mm[Hg] Velocity Time Integral: 23.60 cm Tricuspid Valve Peak Velocity (Regurgitant Flow): 2.32 m/s, 2.29 m/s Pulmonic Valve Peak Velocity: 0.65 m/s Peak Gradient: 1.67 mm[Hg] Right Atrium Right Atrium Systolic Pressure: 35.89 ml, 35.89 ml Dictated by: Moise Mcnulty M.D. on 03/31/2025 at 17:08 Approved by: Moise Mcnulty M.D. on 03/31/2025 at 17:13 Dictated By: MOISE MCNULTY Signed By: 03/31/251713 DD/ 12 TD/TT: Receiver Bulk System: [place] [address] Cardiology Report Signed Patient: JAMI CONNORS MR#: [id number] : 1970 Acct:[id number] Age/Sex: 55 / F ADM Date: 03/30/25 Loc: MS 217-[address]: Spring Burciaga M.D. Ordering Physician: Krishan Burciaga M.D. Date of Service: 03/31/25 Procedure(s): CA ech o doppler complete Accession Number(s): [id number] cc: Krishan Burciaga M.D. Patient Name: JAMI CONNORS MR#: [id number] : 1970 Exam Date: 03/31/2025 Ordering Doctor: DR KRISHAN BURCIAGA . ECHOCARDIOGRAM REPORT PROCEDURE: CA ECHO DOPPLER COMPLETE INDICATIONS: NSTEMI, hypertension, multiple sclerosis COMPARISON: None. DESCRIPTION: COMPLET E ECHOCARDIOGRAM Real-time transthoracic echocardiography wit h 2D, M-mode, spectral and color flow Doppler performed. QUALITY: Technical quality was good. LEFT VENTRICLE: Norm al chamber size. Thickened septal wall. Normal systolic function. LV EF: Calculated le ft ventricular ejection fraction is 58%. Normal left ventricular ejection fraction, (>55%). DIASTOLIC: Normal diastolic function. ATRIAL SEPTUM: LEFT ATRIUM: Normal chamber size. RIGHT ATRIUM: Normal chamber size. RIGHT VENTRICLE: Nor mal chamber size. Normal right ventricular systolic function. TRICUSPID VALVE: Nor mal mobility and thickness. No stenosis with mild regurgitation. No evidence of pulmonary hypertension. RVSP 25 mmHg MITRAL VALVE: Normal mobility and thickness. No evidence of mitral valve stenosis. There is n o mitral annular calcification. No mitral regurgitation. AORTIC VALVE: Normal trileaflet appearance. No visible sclerosis. Normal leaflet mobility. No evidence of aortic valve stenosis. No aortic regurgitation. AORTIC ROOT: Normal diameter and appearance, measuring 3.1 cm. PULMONIC VALVE: Norm al thickness and mobility. No stenosis. No regurgitation. PERICARDIUM: No evid ence of pericardial effusion. IVC: Not well visualized. PLEURA: CONCLUSION: 1. Normal ventricula r size and function. Estimated LVEF is 55-60%. 2. Mild tricuspid regurgitation. 3. Normal right-side d pressures. Adult Echocardiograp hy Procedure Report Left Ventricle LVEDD (3.7 - 5.6 cm) : 3.51 cm LVESD (2.2 - 4.0 cm) : 2.69 cm LVIVS thickness (0.6 - 1.2 cm): 1.19 cm LVPW thickness (0.5 - 1.0 cm): 0.92 cm e': 0.10 m/s E - e': 7.70 LVOT Max Gradient: 5 .94 mm[Hg] LVOT Area (cm2): 1.22 m/s Peak Velocity (LVOT) : 1.22 m/s Mean Velocity (LVOT) : 0.92 m/s LVOT Diameter 2.03 cm Left Atrium LA Volume Index (2D A2C): 19.95 ml/m2 Left Atrium Systolic Dimension: 2.37 cm Mitral Valve MV E to A Ratio: 0.91 Mitral Valve A-Wave Peak Velocity: 0.81 m/s Mitral Valve E-Wave Peak Velocity: 0.74 m/s Right Ventricle Aorta AO Root Diam: 3.05 cm Aortic Valve AoV Area (Peak Abisai): 2.92 cm2, 2.92 cm2 AoV Area (VTI): 3.00 cm2, 3.00 cm2 Peak Velocity(Antegr anita Flow): 1.35 m/s Peak Gradient(Antegr anita Flow): 7.26 mm[Hg] Mean Velocity(Antegr anita Flow): 0.91 m/s Mean Gradient(Antegr antia Flow): 3.82 mm[Hg] Velocity Time Integr al: 23.60 cm Tricuspid Valve Peak Velocity (Regurgitant Flow): 2.32 m/s, 2.29 m/s Pulmonic Valve Peak Velocity: 0.65 m/s Peak Gradient: 1.67 mm[Hg] Right Atrium Right Atrium Systoli c Pressure: 35.89 ml, 35.89 ml Dictated by: Moise Mcnulty M.D. on 03/31/2025 at 17:08 Approved by: Moise Mcnulty M.D. on 03/31/2025 at 17:13 Dictated By: MOISE MCNULTY Signed By: 03/31/25 1714 DD/ 12 TD/TT: Receiver Bulk System: E coli Shiga Toxin EIA Reviewed date:04/03/2025 09:31:35 PM Interpretation: Performing Lab: Notes/Report: [facility] , E coli Shiga Toxin EIA See Below For Report E coli Shiga Toxin EIA E coli Shiga Toxin EIA Negative E coli Shiga Toxin EIA E coli Shiga Toxin EIA Performed at: [facility] E coli Shiga Toxin EIA E coli Shiga Toxin EIA [address] [place], [place] [id number] E coli Shiga Toxin EIA E coli Shiga Toxin EIA [employer] Operator: Earl Reynaga PhD, Phone: [phone] E coli Shiga Toxin EIA Performing Lab: see note LC - [facility] LB SEE REPORT - Leather Dresser Id information not found for OBX-specific livestock producer legend BNP Reviewed date:04/03/2025 09:31:35 PM Interpretation: Performing Lab: Notes/Report: [facility] , NT Pro B Type Natriuretic Pept 409.0 <=900.0 pg/mL Performing Lab: see note ML - [facility] LB CBC AUTO DIFF Reviewed date:04/03/2025 09:31:35 PM Interpretation: Performing Lab: Notes/Report: [facility] , White Blood Count 8.5 4.0-11.0 10 3/uL Red Blood Count 3.87 4.20-5.40 10 6/uL Hemoglobin 11.5 12.0-16.0 g/dL Hematocrit 32.9 36.0-48.0 % Mean Corpuscular Volume 85.0 81.0-99.0 fL Mean Corpuscular Hemoglobin 29.7 26.7-34.0 pg Mean Corpuscular HGB Conc 35.0 29.9-35.2 g/dL Red Cell Distribution Width 14.3 11.0-15.0 % Platelet Count 273 150-450 10 3/uL Mean Platelet Volume 9.3 9.5-13.5 fL Neutrophils Percent Auto 78.5 43.0-75.0 % Lymphocytes Percent Auto 6.9 20.5-60.0 % Monocytes Percent Auto 9.7 1.7-12.0 % Eosinophils Percent Auto 1.3 0.9-7.0 % Basophils Percent Auto 0.4 0.2-2.0 % Immature Granulocytes Pct Auto 3.2 0.0-0.5 % Neutrophils Absolute Auto 6.7 1.4-6.5 10 3/uL Lymphocytes Absolute Auto 0.6 1.2-3.8 10 3/uL Monocytes Absolute Auto 0.8 0.3-0.8 10 3/uL Eosinophils Absolute Auto 0.1 0.0-0.7 10 3/uL Basophils Absolute Auto 0.0 0.0-0.1 10 3/uL Immature Granulocytes Abs Auto 0.27 0.00-0.03 10 3/uL Performing Lab: see note ML - [facility] LB MAGNESIUM Reviewed date:04/03/2025 09:31:35 PM Interpretation: Performing Lab: Notes/Report: [facility] , Magnesium 2.3 1.8-2.4 mg/dL Performing Lab: see note ML - [facility] LB PROF 14(COMP METB) Reviewed date:04/03/2025 09:31:35 PM Interpretation: Performing Lab: Notes/Report: [facility] , Sodium 138 136-145 mmol/L Potassium 3.7 3.5-5.1 mmol/L Chloride 101 98-107 mmol/L Carbon Dioxide 32.8 21.0-32.0 mmol/L Anion Gap 7.9 Glucose 205 74-106 mg/dL Blood Urea Nitrogen 8.0 7.0-18.0 mg/dL Creatinine 0.48 0.55-1.02 mg/dL Estimated GFR ( Betina >60 >=60 mL/min/1.73m 2 Estimated GFR (Non- Bianka >60 >=60 mL/min/1.73m 2 BUN Creatinine Ratio 16.7 Calcium 8.6 8.5-10.1 mg/dL Bilirubin Total 0.4 0.2-1.0 mg/dL Aspartate Amino Transferase 18 15-37 U/L Alanine Aminotransferase 29 14-59 U/L Alkaline Phosphatase 110 46-116 U/L Total Protein 4.5 6.4-8.2 g/dL Albumin Level 1.6 3.4-5.0 g/dL Globulin 2.9 Albumin Globulin Ratio 0.6 Performing Lab: see note ML - [facility] LB Troponin I High Sensitivity Reviewed date:04/03/2025 09:31:35 PM Interpretation: Performing Lab: Notes/Report: [facility] , Troponin I High Sensitivity 84.5 4.0-51.3 pg/mL RESULTS CALLED TO SILVINO HOFFMANN RN @BY Merari Delgado at 0616 CUT-OFF POINTS HAVE BEEN ESTABLISHED BASED ON THE FOURTH UNIVERSAL DEFINITION OF MYOCARDIAL INFARCTION. THE UPPER REFERENCE LIMIT (URL) OF TROPONIN, DEFINED THE 99TH PERCENTILE OF cTnI DISTRIBUTION IN A REFERENCE POPULATION, HAS BEEN CONFIRMED THE DECISION THRESHOLD FOR ID DIAGNOSIS. 99TH PERCENTILE = 51.4 PG/ML NOTE: HIGH-SENSITIVITY TROPONIN ASSAY IS NOT INTENDED TO BE USED IN ISOLATION BUT SHOULD BE INTERPRETED IN CONJUNCTION WITH OTHER DIAGNOSTIC AND CLINICAL INFORMATION. Performing Lab: see note - [facility] LB Venous Blood Gas Reviewed date:04/02/2025 04:44:57 PM Interpretation: Performing Lab: Notes/Report: [facility] , pH VBG 7.552 7.330-7.430 PCO2 VBG 31.2 40.0-52.0 mmHg Performing Lab: see note [facility] LB E coli Shiga Toxin EIA Reviewed date:04/02/2025 04:44:57 PM Interpretation: Performing Lab: Notes/Report: [facility] , E coli Shiga Toxin EIA See Below For Report E coli Shiga Toxin EIA E coli Shiga Toxin EIA Negative E coli Shiga Toxin EIA E coli Shiga Toxin EIA Performed at: [facility] E coli Shiga Toxin EIA E coli Shiga Toxin EIA [address] [place], [place] [id number] E coli Shiga Toxin EIA E coli Shiga Toxin EIA [employer] Tool Operator: Earl Reynaga PhD, Phone: [phone] E coli Shiga Toxin EIA Performing Lab: see note - [facility] LB SEE REPORT - Leather Dresser Id information not found for OBX-specific livestock producer legend Prothrombin Time INR Reviewed date:04/02/2025 04:44:57 PM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
--- OUTSIDE RECORDS SUMMARY | 2025-04-04 11:07 | XMS_ITS | Clinical Summary ---
Author Organization [facility] Healthcare Address [address] [place] [address] Care Team Providers Care Die Fitter Name Role Phone Chava Burciaga MD Primary [...] Active cholecalcifer ol (Vitamin D-3) 1.25 MG (22204 UT) capsule Take 1 capsule by mouth [...] Encounters Date Type Department Care Team Description 04/03/2025 Telephone [facility] [address] [place] [address] Federica Romano NP 03/13/2025 Refill [facility] [address] [place] [address] Federica Romano NP Multiple sclerosis (CMS/HCC); Acute relapsing multiple sclerosis (CMS/HCC) 02/22/2025 2:40 PM EDT Office Visit [facility] [address] [address] Onel Dodge MD Vertigo of central origin (Primary Dx); Multiple sclerosis (CMS/HCC); Acute relapsing multiple sclerosis (CMS/HCC) 02/22/2025 Bamboo flowsheet [facility] [address] [place] [address] Onel Dodge MD 02/22/2025 Travel [...] 05/24/2025 11:00 AM EDT Office Visit [facility] [address] [place] [address] Onel Dodge MD [address] [facility] [address] [place] [place] [address] [phone] Health Maintenance Due Date Last Done Comments CT Colonography 1971 Colonoscopy 1971 Colorectal Cancer Screening 1971 FIT-DNA 1971 FIT 1971 FOBT 1971 Sigmoidoscopy 1971 Pap Smear 1992 Cervical Cancer Screening 2001 HPV/Cotest 2001 Mammogram 2011 Influenza Vaccine Completed 08/26/2024, , 08/28/2021, Additional history exists Insurance MEDICAID [place] [facility] MEDICARE ADVANTAGE Care Teams Die Fitter Relationship Specialty Start Date End Date Chava Burciaga MD PCP - General Family Medicine 06/15/24
--- OUTSIDE RECORDS SUMMARY | 2025-04-04 11:17 | XMS_ITS | CCD ---
Author Organization [facility] Care Team Providers Care Audio Visual Equipment Rental Clerk Name Role Phone ELTAHAWY, EHAB A Unavailable [...] Unavailable Krishan Burciaga MD Primary Care Provider [phone] MARSHAL DODGE Attending Unavailable MARSHAL DODGE Attending Unavailable MARSHAL DODGE Attending Unavailable CARLOS MARTIN Attending Unavailable Krishan Burciaga MD Primary Care Provider [phone] Allergies Allergy Classification Reported Allergen(s) Allergy Type Date of Onset Reaction(s) Facility (1 source) Penicillins Drug allergy (disorder) 06-02-2015 [facility] Repository (2 sources) Sulfonamides (Antibiotic) Drug allergy (disorder) 09-14-2013 [facility]ository (1 source) hydrALAZINE Drug Allergy 04-15-2021 [facility] (1 source) Penicillin Drug Allergy 09-14-2013 [facility] (13 sources) atorvastatin Drug Allergy 04-30-[facility] (13 sources) hydrALAZINE Drug Allergy 04-16-2022 Unknown [facility] (13 sources) Penicillins Drug Allergy 04-16-2022 Unknown [facility] (13 sources) Sulfonamides (Antibiotic) Drug Allergy 04-30-2023 [facility] Medications Current Medications Medication Drug Class(es) Dates Sig (Normalized) Sig (Original) biotin 10 mg oral tablet (13 sources) take 1 tablet by mouth every twelve hours biotin 10 MG tablet Take 10 mg by mouth every 12 (twelve) hours. Active busPIRone hydrochloride 7.5 mg oral tablet (14 sources) Start: 4 End: take 1 tablet by mouth in the [...] 07/26/2025 Active carvedilol 12.5 mg oral tablet (13 sources) alpha-Adrenergic Diamante, beta-Adrenergic Diamante take 1 tablet by mouth in the morning, then take 1 tablet by mouth in the evening, then take 1 tablet by mouth at bedtime carvedilol (Coreg) 12.5 MG tablet Take 12.5 mg by mouth in the morning and 12.5 mg in the evening and 12.5 mg before bedtime. Active cholecalciferol 1.25 mg oral capsule (13 sources) Vitamin D take 1 capsule by mouth every week cholecalciferol (Vitamin D-3) 1.25 MG (08220 UT) capsule Take 1 capsule by mouth 1 (one) time per week. Active 168 hr cloNIDine 0.92784 mg/hr transdermal system (13 sources) Central alpha-2 Adrenergic Agonist cloNIDine (Catapres-TTS) 0.2 MG/24HR Place 1 patch on the skin 1 (one) time per week. Active corticotropin 80 unt/ml injectable solution (14 sources) Adrenocorticotropic Hormone Start: 4 End: 5 corticotropin (Acthar) 80 UNIT/ML injectable gel Indications: Multiple sclerosis (CMS/HCC) , Acute relapsing multiple sclerosis (CMS/HCC) Inject 1 mL (80 Units) into the shoulder, thigh, or buttocks Daily for 21 days 21 mL 03/16/2025 04/06/2025 Active dexamethasone 2 mg oral tablet (15 sources) Corticosteroid Start: 4 End: 5 dexAMETHasone (Decadron) 2 MG tablet Indications: Multiple sclerosis (CMS/HCC) TAKE THREE TABLETS BY MOUTH DAILY FOR 3 DAYS, TWO TABLETS FOR 3 DAYS, THEN ONE TABLET FOR 3 DAYS AND THEN STOP (9 DAYS TOTAL) 18 tablet 1 02/22/2025 Active ferrous sulfate 325 mg oral tablet (13 sources) take 1 tablet by mouth at mealtime ferrous sulfate 325 (65 Fe) MG tablet Take 325 mg by mouth in the morning. Take with meals. Active 24 hr fesoterodine fumarate 4 mg extended release oral tablet (13 sources) Start: 3 take 1 tablet by mouth in the morning, then take 1 tablet by mouth every twenty-four hours fesoterodine ER (Toviaz) 4 MG 24 hr tablet Take 4 mg by mouth in the morning. 11/20/2022 Active fluconazole 200 mg oral tablet (15 sources) Azole Antifungal Start: 4 End: 5 take 1 tablet by mouth in the morning fluconazole (Diflucan) 200 MG tablet Indications: Acute relapsing multiple sclerosis (CMS/HCC) TAKE 1 TABLET (200 MG) BY MOUTH IN THE MORNING FOR 9 DAYS. 9 tablet 1 02/22/2025 Active meclizine hydrochloride 25 mg oral tablet (13 sources) Antiemetic Start: 4 take 1 tablet by mouth three times daily as needed for dizziness meclizine (Antivert) 25 MG tablet Indications: Dizziness TAKE 1 TABLET (25 MG) BY MOUTH 3 (THREE) TIMES A DAY NEEDED FOR DIZZINESS. 30 tablet 11 11/30/2023 Active 10 ml ocrelizumab 30 mg/ml injection (13 sources) ocrelizumab (Ocrevus) 300 MG/10ML solution Infuse 300 mg into a venous catheter See administration instructions. Does 2 times yearly Active potassium chloride 10 meq extended release oral tablet (13 sources) take 1 tablet by mouth twice daily at mealtime potassium chloride CR (Klor-Con) 10 MEQ ER tablet TAKE ONE TABLET BY MOUTH TWICE A DAY WITH FOOD FOR 30 DAYS Active rosuvastatin calcium 10 mg oral tablet (13 sources) HMG-CoA Reductase Inhibitor take 1 tablet by mouth in the morning rosuvastatin (Crestor) 10 MG tablet Take 10 mg by mouth in the morning. Active tiZANidine 4 mg oral tablet (15 sources) Central alpha-2 Adrenergic Agonist Start: End: [...] Documented Da te Episodic/Chronic Acute cerebrovascular disease (15 sources) Cerebellar infarction; Translations: [Cerebral infarction, unspecified] Onset: 04-30-2023 08-29-2024 Chronic Acute myocardial infarction (20 sources) Acute non-ST segment elevation myocardial infarction; Translations: [Non-ST elevation (NSTEMI) myocardial infarction] Onset: 04-30-2023 04-30-2023 Chronic Anxiety disorders (13 sources) Anxiety; Translations: [Anxiety disorder, unspecified] Onset: 11-16-2023 11-16-2023 Chronic Diabetes mellitus without complication (14 sources) Type 2 diabetes mellitus without complications; Translations: [Type 2 diabetes mellitus] Onset: 11-17-2022 11-16-2023 Chronic Essential hypertension (14 sources) Essential (primary) hypertension; Translations: [Hypertensive disorder] Onset: 11-17-2022 04-30-2023 Chronic Multiple sclerosis (20 sources) Multiple sclerosis; Translations: [Acute relapsing multiple sclerosis] Onset: 08-15-2021 Chronic Nutritional deficiencies (14 sources) Vitamin D deficiency, unspecified; Translations: [Vitamin D deficiency] Onset: 11-17-2022 11-16-2023 Chronic Osteoarthritis (20 sources) Osteoarthritis; Translations: [Unspecified osteoarthritis, unspecified site] Onset: 11-16-2023 11-16-2023 Chronic Other circulatory disease (4 sources) Stricture of artery; Translations: [STRICTURE OF ARTERY] Onset: 06-26-2016 Chronic Other gastrointestinal disorders (13 sources) Irritable bowel syndrome; Translations: [Irritable bowel [...] Onset: 06-26-2016 Episodic Other connective tissue disease (13 sources) Muscle pain; Translations: [Myalgia, unspecified site] Onset: 04-16-2022 04-30-2023 Episodic Skin and subcutaneous tissue infections (13 sources) Cellulitis; Translations: [Cellulitis, unspecified] Onset: 05-16-2024 05-16-2024 Episodic Unclassified (1 source) Other general symptoms and signs; Translations: [OTHER GENERAL SYMPTOMS AND SIGNS] Onset: 06-26-2016 Episodic Results Test Name Value Interpretation Reference Range Facility PT - Assessmentson PT - Assessments [id number]#1 .00CD:[address] [facility] Coding Summary.on 11-18-2022 Coding Summary. CD:[id number] G h0bWw+PGhlYWQ+AQ5CRBT wG67oaITxtH5IU2rTUH3N JTVBCOBCVW6KIU6mtOW8F GjpY4TpkrNf FcfszLAtPS12UPp9GJZ4j UsgXRadbK0hxNNbP8a4Ve JkPD75xQ99QXfeRPBsMzD 3LjZpbjsgbWFy U2sqMlRahJPnUbc+PHRhY mxlIHdpZHRoPScxMDAlJy VpcXvmKW4mTi8hQOTcKYR vbGxhcHNlOiBj e3kwULLhTLboKN1ccRgbA 4FvfOK0FMGye9a6Zc76yL I+YUSeYPE9wNanXMyzt62 9MbLwc1luPER2 dHViXOzmMDX3Z01gi8T5C BVnRRIxOSU0bFP0nN6ddU kbblbsG4MfiLIpCkJ7MOW 8lYQnqW5ceTrp otzecW9lDih+L37BLM4KI ZKDSM1MPci9J5IoYkhefA I+FG40LHRuSW39wZEvrKG ga2uylKy3BdKk IQMuXQI6vBylROhzw8FgJ UFwT25oyUYyg1C0SZJchK nliNCfUzLbhBH6lY8oXVa ptyggw8ifrlof Rminl2nxvv92aZ46H67cW MmoCDLjBIG2MCOyTVXlvN jjfk4faV7pZj3+SZhoh5f oc7jroFr6SnTx ZAVybxOykIdxKHN1i3KvO q11U7VlvYfbf9UzEmq8pa 21cTTlb7H9gGZ2RLxmFWG lcM6xHWocRmC6 FGOvFxXpyP72pFFdAKenO w7qpTvkaBqlKA8nYZYvcu waUPAkeR8zMWEziSKwxYy qUP0yUWVkcyxb x017XsSeVWD2OZDnpTNoO 2AebH0cWpGlDHVjQSUuO0 WsyMXuUKjgR205HBuyWwQ 4GSLrcqDcP6Vo HHZqlZavRlQ3l8D0Zu8Zt 5EqujnoPFG5HIthTQAtIr V2KqKzIgS5R3CqZod0KMW zfAszBO9eS1Yv OJQvulclhocffPQ8JOVzD LXuhY95hKNuMPsyMd2pg2 O7u470RAYxFTHhsW57Ul0 udDogMTBwdCBU dP7lhahei1wsaladFjZpJ AHpKJf7JGf5TLIkzZtfSo GnYSW1LgM1IQD5dEWakB7 joIdgncvibB1r Oyc+F87fdD6rTLT8MLU1z dlpIEHdpxJbMU85ZL75D3 RyPjwvdGFibGU+PGRpdiB flXhhNF5uNuNr j3vso7KeEYvwL4NyAKSiA FvqIal4WVLmIFL2mRC5nC 8gUIFeRMrab5L1cBU4N0V looVueh2jw1ey RKOuFZdzL65znYDve3T0S LGcoHF6KGXbvYsiXuDufY 93Oyc+EDJidQrau3GxNtj hg0jtw6jdvEv4 PiMhOXLzeeDncQdtKNR3r 7AoUd33Y59bUTrjOMYnBE XbAWTyMPAcvLabsb3fiY2 wIi8+PGNvbCB3 tSQ7gY9aPYNjTyC2ZLppC 504BxEecMHeSceok5wgl7 updBh3LxPaJMGvhbOpbQx uGYA4w8HpRt71 E83dDJyuIFOrXUGjQXJfI SUbtOvrlt3jhD1qUt5+PC 4aw0ropb56tN97oWX+PHR bGCM9hSkeZBio DWCwoA3bFGpqWkN0RCYkB sLteW57kLUiPZwfQk7yjX aorTykFV5zSBVywaibo29 9KoIbf0lmEPMb kBPaPIovZTP0Y62ke5G0I SYxWLSgGJI1uGM9jY5zfD lnbjogbGVmdDsgdmVydGl hOIynOMknT207 IHRvcDsnPlBhdGllbnQgT qJgXVa6H1JsJlg1CQCofE ugGD1qhKYzDDndZb3rsRt vxZryGV9lLTTa dnzpj327BxNcq3hrOPVua QVnGDajFMP1I22wz8A8LZ EjMLCnXDR8bOT2kS3jhEj nbjogbGVmdDsg dzQhkGlgFFbdVJliT702L HRvcDsnPkJpcnRoIERhdG Q3WL46CT47cUSso7Z3lQK 3B7YgEZMqlfog amoplEA4PHJuNOBssS74S c7ptAimBb9lDPDrVMO3SN BquRBnB1JnuV1lTqZdXDY lEYAwH3OzrVYr OMrkK151YFcdDyG2ALVad mBsN6MeOFTxhIgsMhC7n9 K4Ja4FJ9P4SD85YC73jMQ oa1T9sSG0T5Vh EOKtcohfuathfLV6WJOsK ZIxtK37Ga3tiCdwFh1uAR YjEPG4OUQduYIiU6DdsK9 yOiAjMDAwMDAw W1CbpBXzNLimM386XRkzW nA3MLXaliTzJ6LkVJBuzC nmFbF7q7F6Tr7DWXc1HJ5 6QC02pIXzb4F6 aUR6T2VfGJNmnhuorwgle JQ0VQZoAYHewW07En4ghF mjBg1dYDBiIIT9VJLrsIU dT1OeeN7wHiTj XRHcITPjI1SozUYpZXtdY 927IIeaWgI7CQAuvtOpA5 JqMTTvzZreJyJ0o1J2Fe0 STAUgVH38LKI9 jAL5ZL96NS76U5PnHbbiq GFibGU+PHRhYmxlIHdpZH RoPScxMDAlJyBzdHlsZT0 lIx5yLKPnVYHr eKpctVXvXoRsx0uzRPTpF KouYA2mfTvoC0XqrTI7ET Tcl4x4Yg78D91iV7BtiHO +EHVdfJO0vPV6 gD7bXxOyDfM0VTckE287C wKdjHUbTjhxq9lfr1brkL d7FtM9HHUwpuMivKpwIKP 2j2VsCk90W23p IHdpZHRoPSIxNSUiIHZhb Fkrez4ttS9vZv5+PGNvbC H5kXV0yI9wWxLlGxO6TGv sK731HiQwyVCt Xjbmh2cbg3vbxDd0LwPzO TOkjdXsqXbwHUF3a7DgEo 34H7GucFjwr5QcIvv4gx7 1pRLqt3S5zXL6 F1OiYCTcahriwHAosApsU J2zUWSbwkimGMOfpV2kNZ AgK0a0UaIoLdD6MOiyN4B ophN4UYPswPIk KXrkMWH3P98mj2X1VCVdP JTuNEL7qKE5mH7jgVkonx ogbGVmdDsgdmVydGljYWw zAUatH350RNRf rDpxLFBtbU4fKUNnkOGpf YwnJK5dVPXwzzcwCpNPYH mSCTZRB0XZEaPEOA50EH4 9fODea0L8xXS0 F2OiOUFgjttvomeugDW3O LJrLNSmdZ01cWVoNHloSr 3oy4P1v893EVScRLQyoS3 2Vl4toLffMBEy yEQBwC1bllypl5ehcxrdT lHoAWJiNNo2EXm7MORcdB jdXpViVTF2IkA1AJC9dBH dsE1mbYufxkki zE7mIti+EAXcPPseDKo6N TwvdGQ+FHQfKXB0aXzxMO ttBTEgaP7qMCIpS2c6SfZ eOtY8BKrfZ8Gz RAYqszbuOo80dU1tNyLsP mG3OIdhP2DmziF2VHBjkC GaVLjlUZT7C52sa9P8CHZ mBXOcTZT6hIO0 fK8obElulunjnEMdeXbvx fJltYmoSOlfJLvuA969AS RvcDsnPjUxIFllYXJzPC9 0XL24sOWcl4X0 rTS1G0CpFJHkdichiwmni RM2ZJIuIHFdeW44wFNfIN ecTr6ut6W5e661JQCcNQA ubX59Sm7cmNle JJTywTNQfM6plfsix5wzk wmdYnGiHTEbVQa1KLy5QG VrxSttRkBtIEH3XkE5HFR 2iBGxnQ2bfAui zymrpY4mFvr+RmVtYWxlP U90HT18jATdd9M5gTE0L7 NoKYGmljqmqiyoaJW1LVH cTLXjwN38uJKk ORfjKy9zn1W5b876IDToA ZNabN50Hv0mhZnjVMInxH NTsK5jpbwqm0erlqcbZcS xJZXgNTm6UWn8 FIKpdHziMgVoJCO3TpB6R FB0tRPltC0azEnumvxnqO 9wOyc+YrGydXXjhM5oPE1 5RN19C5JuStjr dGFibGU+PHRhYmxlIHdpZ HRoPScxMDAlJyBzdHlsZT 4vUe0bPMTaCJJhsDnidEL zBhOce2vcZKHp UGivWR7oaYovC4HwvXO1K AFdz5e7Ah92O96xG1ItvN A+KISqyLC6jHZ4aF0jKtI bYgG0WZkiU796 GhJagDOwUuxzt3ght6zfy Es9AkOjGCJoruVzxGyxVI L9c0CxPe33Q22sVHvuMJP oPSIyMCUiIHZh cKines4yjY7fMi5+PGNvb AK2dNN7wJ8dRqSkEzQ2JM vmE496BfCpbCCqAtxxV21 cC8MsdDJ+PHRy Fax6OKPoiKqzDZ6knXZyH WxuTu6jTUK4KuNkYzZoED cbC7JoMTPotqoglzmklJO 4SZFpXPYqmH29 Bd8gkDqvAm0jHQWrYOD1V BCpsKCtI7EetZ7vNuObRK RiWPFbB3DvjTHbAAiaP81 8ENkdQcP4HIPr bsEsN6VpVHSjwQifOhD2b 3T1Aa0DiVxbiSHlXD4uYf FxUEc8P0SeAxm0QIHmsVu rCB0fpUGrTFip Kb1vwMcgyEpbZS6yCLPso axcl639QuJjt6isONIssT ZuSGoyKWW2I34nv3K2AXF xGNDeSZO2uJW1 cC8hmKjsrqkpmNKseWiyv bChmKcgQRryCAgbF261ZP YztMejLeWFHxy8N2KrPvv 0TORhhSllDM6x oNFcDVmfIo3hgHozvRgdE Z7lXFFkecqkd279WiHad1 bwVGWbsOVgRMhtWFZ5M35 nr1H0GTXmUKZe SVY6qNY1kZ1gaBjslynvy GVmdDsgdmVydGljYWwtYW glS832TUSfaPczJz0BPgu 2S2PpOlf4BZGa zHtxUD6orBOpZQajJz9az CaenKluDI8qAINeggfvd5 71NbQrf3jhUNIzcLDhFZw nJIW6J77ld9G6 ARDbBQUrEKH6tBF5fO2jh GlnbjogbGVmdDsgdmVydG tcZIzqOKpyJ711VVLpeOw nPlBheWVyOjwv dGQ+UJ41ew68X0EcWtkiK qv6OOMfEDC7lPN0zX6rLJ ScGHipg2O7mYF9T9KvueD zyy0ye7jhMVGv ZTog (more content not included)... Normal [facility] Insurance Correspondenceon 0 11-18-2022 Insurance Correspondence [id number]# 1.00CD:[address] [facility] Consent for Treatmenton 11-02 Consent for Treatment [id number]#1 .00CD:[address] [facility] PT - Orderson 11-17-2022 PT - Orders [id number]#1 .00CD:[address] [facility] CBC AUTO DIFFon 11-04-2022 BASO # 0.0 103/ul Normal 0.0-0.1 [facility] Comment on above: Performed By: #### C BC ####[facility] [address] [place] [address]Dr. Linnea Jane Basophils/100 WBC (Bld) 0.3 % Normal 0.2-2.0 [facility] Comment on above: Performed By: #### C BC ####[facility] [address] [place], [place] [address]Dr. Linnea Jane EO # 0.2 103/ul Normal 0.0-0.7 [facility] Comment on above: Performed By: #### C BC ####[facility] [address] [place], [place] [address]Dr. Linnea Jane Eosinophils/100 WBC (Bld) 3.3 % Normal 0.9-7.0 [facility] Comment on above: Performed By: #### C BC ####[facility] [address] [place], [place] [address]Dr. Linnea Jane Erythrocyte distribution width (RBC) [Ratio] 13.7 % Normal 11.0-15.0 [facility] Comment on above: Performed By: #### C BC ####[facility] [address] [place], [place] [address]Dr. Linnea Jane Hematocrit (Bld) [Volume fraction] 37.1 % Normal 36.0-48.0 [facility] Comment on above: Performed By: #### C BC ####[facility] [address] [place], [place] [address]Dr. Dianebelem Jane Hemoglobin (Bld) [Mass/Vol] 12.2 g/dL Normal 12.0-16.0 [facility] Comment on above: Performed By: #### C BC ####[facility] [address] [place], [place] [address]Dr. Linnea Jane IG # 0.06 10e3/ul Critically high 0.00-0.03 [facility] Comment on above: Performed By: #### C BC ####[facility] [address] [place], [place] [address]Dr. Linnea Jane IG % 1.0 % Critically high 0.0-0.5 [facility] Comment on above: Performed By: #### C BC ####[facility] [address] [place], [place] [address]Dr. Linnea Jane LYMPH # 0.4 103/ul Critically low 1.2-3.8 [facility] Comment on above: Performed By: #### C BC ####[facility] [address] [place] [address]Dr. Linnea Jane Lymphocytes/100 WBC (Bld) 6.8 % Critically low 20.5-60.0 [facility] Comment on above: Performed By: #### C BC ####[facility] [address] [place], [place] [address]Dr. Linnea Jane MANUAL DIFF REQ NO Normal [facility] Comment on above: Performed By: #### C BC ####[facility] [address] [place] [address]Dr. Linnea Jane MCH (RBC) [Entitic mass] 28.4 pg Normal 26.7-34.0 [facility] Comment on above: Performed By: #### C BC ####[facility] [address] [place], [place] [address]Dr. Linnea Jane MCHC (RBC) [Mass/Vol] 32.9 g/dL Normal 29.9-35.2 [facility] Comment on above: Performed By: #### C BC ####[facility] [address] [place], [place] [address]Dr. Linnea Jane MCV (RBC) [Entitic vol] 86.5 fL Normal 81.0-99.0 [facility] Comment on above: Performed By: #### C BC ####[facility] [address] [place], [place] [address]Dr. Linnea Jane MONO # 0.7 103/ul Normal 0.3-0.8 [facility] Comment on above: Performed By: #### C BC ####[facility] [address] [place], [place] [address]Dr. Linnea Jane Monocytes/100 WBC (Bld) 11.3 % Normal 1.7-12.0 [facility] Comment on above: Performed By: #### C BC ####[facility] [address] [place], [place] [address]Dr. Linnea Jane NEUT # 4.5 103/ul Normal 1.4-6.5 [facility] Comment on above: Performed By: #### C BC ####[facility] [address] [place] [address]Dr. Linnea Buck Neutrophils/100 WBC (Bld) 77.3 % Critically high 43.0-75.0 [facility] Comment on above: Performed By: #### C BC ####[facility] [address] [place] [id number]. Dianebelem Buck Platelet mean volume (Bld) [Entitic vol] 9.0 fL Critically low 9.5-13.5 [facility] Comment on above: Performed By: #### C BC ####[facility] [address] [place] [address]Dr. Linnea Jane PLT 429 103/ul Normal 150-450 [facility] Comment on above: Performed By: #### C BC ####[facility] [address] [place] [id number]. Linnea Jane RBC 4.29 106/ul Normal 4.20-5.40 [facility] Comment on above: Performed By: #### C BC ####[facility] [address] [place] [id number]. Linnea Jane WBC 5.8 103/ul Normal 4.0-11.0 [facility] Comment on above: Performed By: #### C BC ####[facility] [address] [place] [id number]. Linnea Jane FREE T3on 11-04-2022 FREE T3 2.58 pg/mlL Normal 2.18-3.98 [facility] Comment on above: Performed By: #### C MP, FT3, LIPID, T4, TSH #### [facility] [address] [place], [place] [address] Dr. Linnea Jane GLYCOHEMOGLOBIN A1Con 2022 ADA RECOMMENDATION SEE BELOW Normal [facility] Comment on above: Result Comment: ADA RECOMMENDED LIMIT 4.0 - 6.0 ADA THERAPEUTIC TARGET < 7.0 ACTION SUGGESTED > 7.0 Performed By: #### A 1C #### [facility] [address] [place] [address] [address] Linnea Jane Glucose [Mass/Vol] 151 mg/dL Normal [facility] Comment on above: Performed By: #### A 1C #### [facility] [address] [place] [address] [address] Linnea Jane HbA1c (Bld) [Mass fraction] 6.9 % Critically high 4.5-6.2 [facility] Comment on above: Performed By: #### A 1C #### [facility] [address] [place] [address] Dr. Linnea Jane LIPID PROFILEon 11-04-2022 CHOL-HDL RATIO NORM SEE BELOW Normal [facility] Comment on above: Result Comment: 3.3 - 4.4 LOW RISK 4.4 - 7.1 AVERAGE RISK 7.1 - 11.0 MODERATE RISK >11.0 HIGH RISK Performed By: #### C MP, FT3, LIPID, T4, TSH #### [facility] [address] [place] [address] [address] Linnea Jane Cholesterol [Mass/Vol] 174 mg/dL Normal <=200 [facility] Comment on above: Performed By: #### C MP, FT3, LIPID, T4, TSH #### [facility] [address] [place] [address] Dr. Linnea Jane Cholesterol in HDL [Mass/Vol] 74 mg/dL Critically high 40-60 [facility] Comment on above: Performed By: #### C MP, FT3, LIPID, T4, TSH #### [facility] [address] [place] [address] Dr. Linnea Jane Cholesterol in LDL [Mass/Vol] 82.2 mg/dL Normal [facility] Comment on above: Performed By: #### C MP, FT3, LIPID, T4, TSH #### [facility] [address] [place] [address] Dr. Linnea Jane Cholesterol.total/Cho lesterol in HDL [Mass ratio] 2.4 {ratio} Normal [facility] Comment on above: Performed By: #### C MP, FT3, LIPID, T4, TSH #### [facility] [address] [place] [address] [address] Linnea Jane HDL NORMAL > or = 60 mg/dl - LO W CARDIOVASCULAR RISK <40 mg/dl - HIGH CARDIOVASCULAR RISK Normal [facility] Comment on above: Performed By: #### C MP, FT3, LIPID, T4, TSH #### [facility] [address] [place] [address] [address] Linnea Jane LDL CALC NORMAL SEE BELOW Normal [facility] Comment on above: Result Comment: <100 mg/dl OPTIMAL 100 - 129 mg/dl NEAR OR ABOVE OPTIMAL 130 - 159 mg/dl BORDERLINE HIGH 160 - 189 mg/dl HIGH >190 mg/dl VERY HIGH Performed By: #### C MP, FT3, LIPID, T4, TSH #### [facility] [address] [place] [address] [address] Linnea Jane Triglyceride [Mass/Vol] 89 mg/dL Normal <=150 [facility] Comment on above: Performed By: #### C MP, FT3, LIPID, T4, TSH #### [facility] [address] [place] [address] [address] Linnea Jane VLDL CALC 17.8 mg/dL Normal [facility] Comment on above: Performed By: #### C MP, FT3, LIPID, T4, TSH #### [facility] [address] [place] [address] [address] Linnea Jane PROF 14(COMP METB)on 023 Albumin [Mass/Vol] 3.2 g/dL Critically low 3.4-5.0 [facility] Comment on above: Performed By: #### C MP, FT3, LIPID, T4, TSH #### [facility] [address] [place] [address] [address] Linnea Jane Albumin/Globulin [Mass ratio] 1.0 {ratio} Normal [facility] Comment on above: Performed By: #### C MP, FT3, LIPID, T4, TSH #### [facility] [address] [address] [address] Linnea Jane ALP [Catalytic activity/Vol] 77 U/L Normal 46-116 [facility] Comment on above: Performed By: #### C MP, FT3, LIPID, T4, TSH #### [facility] [address] [place] [address] Dr. Linnea Jane ALT [Catalytic activity/Vol] 36 U/L Normal 14-59 [facility] Comment on above: Performed By: #### C MP, FT3, LIPID, T4, TSH #### [facility] [address] [place] [address] Dr. Linnea Jane Anion gap [Moles/Vol] 9.7 mmol/L Normal [facility] Comment on above: Performed By: #### C MP, FT3, LIPID, T4, TSH #### [facility] [address] [place] [address] Dr. Linnea Jane AST [Catalytic activity/Vol] 20 U/L Normal 15-37 [facility] Comment on above: Performed By: #### C MP, FT3, LIPID, T4, TSH #### [facility] [address] [place] [address] Dr. Linnea Jane Bilirubin [Mass/Vol] 0.5 mg/dL Normal 0.2-1.0 [facility] Comment on above: Performed By: #### C MP, FT3, LIPID, T4, TSH #### [facility] [address] [place] [address] Dr. Linnea Jane Calcium [Mass/Vol] 9.3 mg/dL Normal 8.5-10.1 [facility] Comment on above: Performed By: #### C MP, FT3, LIPID, T4, TSH #### [facility] [address] [place] [address] Dr. Linnea Jane Chloride [Moles/Vol] 104 mmol/L Normal 98-107 [facility] Comment on above: Performed By: #### C MP, FT3, LIPID, T4, TSH #### [facility] [address] [place] [address] Dr. Linnea Jane CO2 [Moles/Vol] 31.7 mmol/L Normal 21.0-32.0 [facility] Comment on above: Performed By: #### C MP, FT3, LIPID, T4, TSH #### [facility] [address] [place] [address] Dr. Linnea Jane Creatinine [Mass/Vol] 0.63 mg/dL Normal 0.55-1.02 [facility] Comment on above: Performed By: #### C MP, FT3, LIPID, T4, TSH #### [facility] [address] [place] [address] Dr. Linnea Jane EGFR-AF MARSHALLESE >60 Normal >=60 [facility] Comment on above: Performed By: #### C MP, FT3, LIPID, T4, TSH #### [facility] [address] [place] [address] Dr. Linnea Jane EGFR-NON AF MARSHALLESE >60 Normal >=60 [facility] Comment on above: Performed By: #### C MP, FT3, LIPID, T4, TSH #### [facility] [address] [place] [address] Dr. Linnea Jane Globulin (S) [Mass/Vol] 3.1 g/dL Normal [facility] Comment on above: Performed By: #### C MP, FT3, LIPID, T4, TSH #### [facility] [address] [place] [address] Dr. Linnea Jane Glucose [Mass/Vol] 131 mg/dL Critically high 74-106 T [facility] Comment on above: Performed By: #### C MP, FT3, LIPID, T4, TSH #### [facility] [address] [place] [address] Dr. Linnea Jane Potassium [Moles/Vol] 3.4 mmol/L Critically low 3.5-5.1 [facility] Comment on above: Performed By: #### C MP, FT3, LIPID, T4, TSH #### [facility] [address] [place] [address] Dr. Linnea Jane Protein [Mass/Vol] 6.3 g/dL Critically low 6.4-8.2 [facility] Comment on above: Performed By: #### C MP, FT3, LIPID, T4, TSH #### [facility] [address] [place] [address] Dr. Linnea Jane Sodium [Moles/Vol] 142 mmol/L Normal 136-145 [facility] Comment on above: Performed By: #### C MP, FT3, LIPID, T4, TSH #### [facility] [address] [place] [address] Dr. Linnea Jane Urea nitrogen [Mass/Vol] 22.0 mg/dL Critically high 7.0-18.0 [facility] Comment on above: Performed By: #### C MP, FT3, LIPID, T4, TSH #### [facility] [address] [place] [address] Dr. Linnea Jane Urea nitrogen/Creatinine [Mass ratio] 34.9 mg/mg Normal [facility] Comment on above: Performed By: #### C MP, FT3, LIPID, T4, TSH #### [facility] [address] [place] [address] Dr. Linnea Jane T4on 11-04-2022 T4 [Mass/Vol] 8.50 ug/dL Normal 4.80-13.[address] [facility] Comment on above: Performed By: #### C MP, FT3, LIPID, T4, TSH #### [facility] [address] [place] [address] Dr. Linnea Jane TSHon 11-04-2022 TSH 0.590 uIU/mL Normal 0.358-3.[address] [facility] Comment on above: Performed By: #### C MP, FT3, LIPID, T4, TSH #### [facility] [address] [place] [address] Dr. Linnea Jane VITAMIN D 25 OHon 11-04-2022 VIT D 25-OH 140.4 ng/mL Normal [facility] Comment on above: Performed By: #### V ITAD #### [facility] [address] [place] [address] Dr. Linnea Jane VIT D RANGES SEE BELOW Normal [facility] Comment on above: Result Comment: <20 ng/mL Vit D deficient 20 - <30 ng/mL Vit D insufficient 30 - 100 ng/mL Vit D sufficient >100 ng/mL Potential Toxicity Performed By: #### V ITAD #### [facility] [address], [place] [address] Dr. Linnea Jane HEPATITIS B CORE, IgMon Hep B Core Ab, IgM Negative Normal Negative [facility] Comment on above: Performed By: #### H EPBCOR #### [facility] [address], [place] [address] Dr. Linnea Jane MRI BRAIN WO W [...] by: NEGRO BLACKMON Date: 2022-09-17 07:22 Normal [facility] XR FOREIGN BODY EYEon 2021 XR FOREIGN BODY EYE EXAMINATION: XR FOREIGN BODY EYE HISTORY: Foreign body in eye ; pre-MRI COMPARISON: No relevant comparison available. FINDINGS: ORBITS: Negative for a metallic foreign body. OTHER: Negative. IMPRESSION: 1. No metallic foreign body within the orbits. Electronically authenticated by: NEGRO BLACKMON Date: 2022-09-16 15:08 Normal [facility] Vital Signs Date Time Vital Sign Value Performing Clinician Faci lity 02-22-2025 14:43-0400 Body height 160 cm Marshal Dodge MD Work Phone: [facility] 02-22-2025 14:43-0400 Body mass index (BMI) [Ratio] 18.6 kg/m2 Marshal Dodge MD Work Phone: [facility] 02-22-2025 14:43-0400 Body weight 47.63 kg Marshal Dodge MD Work Phone: [facility] Encounters Encounter Date Encounter Type Care Provider Facility Start: 04-03-2025 End: 04-03-2025 Telephone encounter Federica Romano TIMBER APPRAISER Work Phone: [facility] Start: 03-13-2025 End: 03-13-2025 Refill Federica Romano TIMBER APPRAISER Work Phone: [facility] Comment on above: Multiple sclerosis ( CMS/HCC); Acute relapsing multiple sclerosis (CMS/HCC) Start: 02-22-2025 End: 02-22-2025 Office outpatient visit 25 minutes Marshal Dodge MD Work Phone: [facility] Comment on above: Vertigo of central o rigin (Primary Dx); Multiple sclerosis (CMS/HCC); Acute relapsing multiple sclerosis (CMS/HCC) Start: 02-22-2025 End: 02-22-2025 ambulatory MARSHAL DODGE Not Available Start: 02-22-2025 End: 02-22-2025 Bamboo flowsheet Marshal Dodge MD Work Phone: [facility] Start: 02-22-2025 End: 02-22-2025 Bamboo flowsheet Marshal Dodge MD Work Phone: [facility] Start: 12-13-2024 End: 12-14-2024 Telephone encounter Marshal Dodge MD Work Phone: [facility] Start: 11-23-2024 End: 11-23-2024 Office outpatient visit 25 minutes aMrshal Dodge MD Work Phone: [facility] Comment on above: Vertigo of central o rigin (Primary Dx); Acute relapsing multiple sclerosis (CMS/HCC) Start: 11-23-2024 End: 11-23-2024 ambulatory MARSHAL DODGE Not Available Start: 11-23-2024 End: 11-23-2024 Bamboo flowsheet Marshal Dodge MD Work Phone: [facility] Start: 11-23-2024 End: 11-23-2024 Bamboo flowsheet Marshal Dodge MD Work Phone: [facility] Start: 11-21-2024 End: 11-21-2024 Refill Dee Farrar LPN [facility] Comment on above: Multiple sclerosis ( CMS/HCC) Start: 09-21-2024 End: 09-22-2024 Refill Marshal Dodge MD Work Phone: [facility] Comment on above: Multiple sclerosis ( CMS/HCC) Start: 08-29-2024 End: 08-29-2024 Orders Only Federica Romano NP Work Phone: [facility] Comment on above: Cerebellar infarctio n (CMS/HCC) (Primary Dx); Other fatigue; Memory loss Start: 07-26-2024 End: 07-26-2024 Refill Marshal Dodge MD Work Phone: [facility] Comment on above: Multiple sclerosis ( CMS/HCC) (Primary Dx) Start: 06-15-2024 End: 06-15-2024 ambulatory CARLOS MARTIN Not Available Start: 05-16-2024 End: 05-16-2024 ambulatory MARSHAL DODGE Not Available Start: 11-17-2022 Encounter for genera l adult medical examination without abnormal findings DR KRISHAN BURCIAGA [facility] Start: 11-17-2022 End: 02-16-2023 ambulatory Marshal Dodge Facility:[facility] Start: 11-04-2022 End: 11-05-[address] KRISHAN BURCIAGA Facility:[facility] Start: 11-04-2022 End: 11-05-2022 Encounter for general adult medical examination without abnormal findings DR KRISHAN BURCIAGA Facility:[facility] Start: 10-09-2022 End: 10-10-[address] DOCTOR WINKLER Facility:[facility] Start: 09-16-2022 End: 09-17-[address] DOCTOR WINKLER Facility:[facility] Start: 12-31-[address] KRISHAN BURCIAGA Facility :[facility] Start: 06-26-2016 End: 06-27-2016 Ambulatory [facility] Plan of Treatment Date Care Activity Detail Author Start: 05-24-2025 End: 05-24-2025 Patient encounter procedure 05/24/2025 11:00 AM EDT Office Visit [facility] [address] [facility] [address] [place] [id number] Marshal Dodge MD [address] [facility] [address] [place] [id number] [facility] Start: 02-22-2025 End: 02-22-2025 Patient encounter procedure [facility] Comment on above: Arrived Start: 11-23-2024 End: 11-23-2024 Patient encounter procedure [facility] Comment on above: Arrived Start: 08-22-2024 End: 08-22-2024 Patient encounter procedure 08/22/2024 2:20 PM EDT Office Visit [facility] [address] [address] Marshal Dodge MD [address] [address] [facility] Start: 07-03-2024 Influenza vaccination Influenza Vacc ine (#1) [facility] Start: 2011 Screening for malign ant neoplasm of breast Mammogram [facility] Start: 2001 Screening for malign ant neoplasm of cervix [facility] Start: 1992 Screening for malign ant neoplasm of cervix Pap Smear [facility] Start: 1971 Screening for malign ant neoplasm of colon [facility] Immunizations Immunization Date Immunization Notes Care Provider Fa josette 08-26-2024 influenza virus vacc ine, unspecified formulation Marshal Dodge MD Work Phone: [facility] 09-03-2022 influenza virus vacc ine, unspecified formulation Marshal Dodge MD Work Phone: [facility] Payers Date Payer Category Payer Medicare (Managed Care) [employer] [id number] 2021 Private Health Insurance [id number] 2019 Medicaid [id number] 1971 Unknown [id number]. 593 1971 Unknown [id number]. 593 1971 Unknown [id number] [id number]. 593 1971 Unknown [id number] [id number]. 593 1971 Unknown [id number] [id number]. 727 1971 Unknown [id number] [id number]. 1259 1971 Unknown [id number] [id number]. 1259 1971 Unknown [id number] [id number]. 1259 1971 Unknown [id number] [id number]. 1259 1958 Medicaid [id number] 1958 Medicare [id number] 1958 Self-pay Medicare [id number] Social History Date Type Detail Facility Start: 04-30-2023 [facility] Start: 04-30-2023 Tobacco use and exposure Smoke less tobacco non-user [facility] Start: 06-15-2024 Alcoholic beverage intake Life time non-drinker (finding) [facility] Start: 06-15-2024 History of Social function [facility] Start: 06-15-2024 Tobacco use panel [facility] Start: 1970 Sex assigned at Not on file N [facility] Medical Equipment Procedure Code Equipment Code Equipment Origin al Text Equipment Identifier Dates 1 each by Other route if needed. Start: 11-07-2022 Clinical Notes 07-26-2024 to 04-03-2025 Telephone Encounter - Federica Romano NP - 04/03/2025 10:26 AM EDTTelephone Encounter - Federica Romano NP - 04/03/2025 10:26 AM Meredith Dodge MD - 02/22/2025 2:40 PM EDT Note Date & Type Note Facility 04-03-2025 Telephone encounter Note leaves voicemail that is in hospital and asking if she should be seen sooner. She already does have appointment in May with [facility] is next available unless Yuliya has opening. Please call back and ask what she is being hospitalized for. [facility] 04-03-2025 Miscellaneous Notes leaves voicemail that is in hospital and asking if she should be seen sooner. She already does have appointment in May with Dodge is next available unless Yuliya has opening. Please call back and ask what she is being hospitalized for. documented in this encounter [facility] 03-13-2025 Telephone encounter Note Patient calls for Acthar refill. I sent to [facility]? She was asking for call back. [facility] 03-13-2025 Miscellaneous Notes Patient calls for Acthar refill. I sent to [facility]? She was asking for call back. documented in this encounter [facility] 02-22-2025 History of Present illness Narrative Images [...] times daily cholecalciferol (Vitamin D-3) 1.25 MG (65603 UT) capsule 1 capsule, Oral, Weekly cloNIDine [...] in all four extremities, including at least access assoc, finger abductors, biceps, triceps, deltoid, toe flexors [...] improve fall risk documented in this encounter [facility] 12-14-2024 Telephone encounter Note Insurance is questioning dose when they run her dose it is over the maximum dose and we need to call them and do an override to approve the dose so they can administer the medication. She is emailing me the verbage they want. [facility] Work Phone: 12-14-2024 Miscellaneous Notes Insurance is questioning dose when they run her dose it is over the maximum dose and we need to call them and do an override to approve the dose so they can administer the medication. She is emailing me the verbage they want. Hans from [facility] left message requesting call back regarding patient. [phone] documented in this encounter [facility] 12-13-2024 Telephone encounter Note Hans from [facility] left message requesting call back regarding patient. [phone] [facility] 11-23-2024 History of Present illness Narrative Images [...] times daily cholecalciferol (Vitamin D-3) 1.25 MG (70064 UT) capsule 1 capsule, Oral, Weekly cloNIDine [...] in all four extremities, including at least access assoc, finger abductors, biceps, triceps, deltoid, toe flexors [...] improve fall risk documented in this encounter [facility] 11-21-2024 Telephone encounter Note Patient left additional message requesting status of Ocrevus order. She states she is scheduled for this but insurance is requesting PA status. [facility] 11-21-2024 Miscellaneous Notes Patient left additional message requesting status of Ocrevus order. She states she is scheduled for this but insurance is requesting PA status. Tizanidine refill request sent to provider. Patient requesting 90 day supply to [facility]. Last appt documented in this encounter [facility] 11-21-2024 Telephone encounter Note Tizanidine refill request sent to provider. Patient requesting 90 day supply to [facility]. Last appt [facility] 08-29-2024 History of Present illness Narrative Creyos memory testing ordered, referral placed and sent to patient to complete. documented in this encounter [facility] 07-26-2024 Telephone encounter Note sent [facility] 07-26-2024 Miscellaneous Notes sent Patient called and states that she was trying to get refill of Buspar 7.5mg TID and pharmacy advised rx was cancelled. Please resend to [facility] in [place]. Advised patient per system it was cancelled on 06/15/24 which looks like was done by provider office she seen that day. Advised would get message over to provider for refill to be resent to pharmacy. Pt verbalized understanding. documented in this encounter [facility] 07-26-2024 Telephone encounter Note Patient called and states that she was trying to get refill of Buspar 7.5mg TID and pharmacy advised rx was cancelled. Please resend to [facility] in [place]. Advised patient per system it was cancelled on 06/15/24 which looks like was done by provider office she seen that day. Advised would get message over to provider for refill to be resent to pharmacy. Pt verbalized understanding. [facility] Evaluation note Diagnosis Cerebellar infarction (CMS/HCC)- Primary Unspecified cerebral artery occlusion with cerebral infarction Other fatigue Memory loss documented [facility] this [facility] Diagnosis Multiple sclerosis (CMS/HCC) Multiple sclerosis documented [facility] Diagnosis Multiple sclerosis (CMS/HCC)- Primary Multiple sclerosis documented [facility] Diagnosis Multiple sclerosis (CMS/HCC) Multiple sclerosis documented [facility] Diagnosis Vertigo of central origin- [...] section and content) DATE CREATED AUTHOR 04/28/2018 [facility] DATE CREATED AUTHOR AUTHOR'S ORGANIZ ATION 11/18/2022 [facility] DATE CREATED AUTHOR AUTHOR'S ORGANIZ ATION 02/16/2023 [facility] DATE CREATED AUTHOR AUTHOR'S ORGANIZ ATION 02/23/2025 [facility] EPIC Care Teams (unrecognized sec tion and content) Audio Visual Equipment Rental Clerk Relationship Specialty Start Date End Date Krishan uBrciaga MD [address] [place] [address] PCP - General Family Medicine 06/15/24 Audio Visual Equipment Rental Clerk Relationship Specialty Start Date End Date Krishan Burciaga MD [address] [place] [address] PCP - General Family Medicine 06/15/24 Audio Visual Equipment Rental Clerk Relationship Specialty Start Date End Date Krishan Burciaga MD [address] [place] [address] PCP - General Family Medicine 06/15/24 Audio Visual Equipment Rental Clerk Relationship Specialty Start Date End Date Krishan Burciaga MD [address] [place] [address] PCP - General Family Medicine 06/15/24 Audio Visual Equipment Rental Clerk Relationship Specialty Start Date End Date Krishan Burciaga MD [address] [place] [address] PCP - [facility] 06/15/24 Audio Visual Equipment Rental Clerk Relationship Specialty Start Date End Date Krishan Burciaga MD [address] [place] [address] PCP - General Family [facility] 06/15/24 Audio Visual Equipment Rental Clerk Relationship Specialty Start Date End Date Krishan Burciaga MD PCP - General Family [facility] 06/15/24 Audio Visual Equipment Rental Clerk Relationship Specialty Start Date End Date Krishan [...] BE BASED ON THE PRIMARY CLINICAL RECORDS. [employer] [facility]. provides no warranty or guarantee of the accuracy or completeness of information in this document.
--- NOTE | 2025-04-04 11:33 | ECG_ITS ---
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 Measurements Intervals [place] Rate: 115 P: 71 [place]: 132 QRS: 58 QRSD: 90 T: 74 QT: 326 QTc: 394 Interpretive Statements 1120 Sinus tachycardia 9140 abnormal rhythm ECG Compared to ECG 03/30/2025 23:13:41 Sinus rhythm no longer present Atrial abnormality no longer present Myocardial infarct finding no longer present Electronically Signed On 04-04-2025 18:08:11 EDT by MOISE MCNULTY M.D.
--- NOTE | 2025-04-04 11:34 | ED_ITS ---
HPI HPI - General Adult General Chief complaint: Weakness Stated complaint: BLOOD IN STOOL Time Seen by Provider: 04/04/25 11:07 Source: patient Mode of arrival: Wheelchair Limitations: physical limitation History of Present Illness HPI narrative: 55-year-old female presents to the emergency department for a chief complaint of feeling weak. She was discharged from the hospital yesterday and at that time had been admitted for elevated blood sugars and she was found to be positive for C. difficile and is on oral vancomycin. She states she thinks she left the hospital too early. She complains of some abdominal pain but no history of fever or vomiting. Related Data Home Medications ?Medication ?Instructions ?Recorded ?Confirmed buspirone 7.5 mg tablet 7.5 mg PO TID 03/22/2404/04 potassium chloride 10 mEq 10 meq PO BID 03/22/2404/04 tablet,extended release rosuvastatin 5 mg tablet 5 mg PO QPM 03/22/24 5 tizanidine 4 mg tablet 8 mg PO TID PRN muscle spast icity 03/22/24 04/04/25 fesoterodine 8 mg tablet,extended 8 mg PO QDAY 5 04/04/25 release 24 hr Previous Rx's ?Medication ?Instructions ?Recorded Lactobacillus acidophilus, 1 packet PO BID #48 ea 12/27 bulgaricus 100 million cell granules packet (Floranex) aspirin 81 mg capsule 81 mg PO DAILY #30 caps 12/27 carvedilol 6.25 mg tablet 6.25 mg PO BID #60 tabs 12/27 clonidine 0.1 mg/24 hr weekly 1 patch transdermal QWEE K #4 ea 04/03/25 transdermal patch magnesium oxide 400 mg (241.3 mg 400 mg PO BID #60 tab s 04/03/25 magnesium) tablet pantoprazole 40 mg tablet,delayed 40 mg PO ACB #30 tab s 04/03/25 release potassium chloride 10 mEq 20 meq (2 x 10 mEq) PO BID # 60 tabs 04/03/25 tablet,extended release(part/cryst) vancomycin 250 mg capsule 250 mg PO QID 10 days #40 ca ps 04/03/25 Allergies Allergy/AdvReac Type Severity Reaction Status Date / Time Penicillins Allergy Severe Rash Verified 06/03/25 11:12 Sulfa (Sulfonamide Allergy Severe Hives Verified 04/04/25 11:12 Antibiotics) Opioid HPI Opioid Management Most Recent Opioid Data: Last Pain Scale 2 03/31/25, 11:38 Last Pain Intensity 2 03/31/25, 11:38 Last Pain Assessment 03/30/25, 21:12 Last ORT Total Score 0 03/30/25, 20:07 Last ORT Risk Category Low Risk 03/30/25, 20:07 Ur Phencyclidine Scrn, (NEGATIVE) Negative , 14:51 Review of Systems ROS Narrative A ten point review of systems is negative except as noted above. [facility] Medical History (Updated 04/04/25 @ 12:49 by Bakari Forman MD) Leukocytosis ?D72.829 - Elevated white blood cell count, unspecified (ICD-10) Colitis ?K52.9 - Noninfective gastroenteritis and colitis, unspecified (ICD-10) Cellulitis ?L03.90 - Cellulitis, unspecified (ICD-10) Encounter for cholecystectomy ?Z76.89 - Persons encountering health services in other specified circumstances (ICD-10) Multiple sclerosis ?G35 - Multiple sclerosis (ICD-10) HTN (hypertension) ?I10 - Essential (primary) hypertension (ICD-10) Surgical History H/O hysterectomy for benign disease ?Z90.710 - Acquired absence of both cervix and uterus (ICD-10) Social History (Updated 03/30/25 @ 23:58 by Ronit Hoffmann RN) Within the past year, how often did you have a drink containing alcohol: never Score interpretation: A score less than 3 is consistent with normal alcohol consumption. Smoking status: Never smoker Non-prescribed substance use: denies use Previous occupational history: disabled Known occupational exposures/hazards: No Highest level of school completed/degree received: some college, no degree Are you now , , , , never or living with a partner: Little interest or pleasure in doing things: not at all Feeling down, depressed, or hopeless: not at all Exam Narrative Exam Narrative: Nurses note and vital signs reviewed and patient is not hypoxic. General: The patient appears in no distress. She appears frail. Skin: Warm, dry, no pallor noted. There is no rash noted. Head: Normocephalic, atraumatic Eye: Normal conjunctiva, no drainage Ears, Nose, Mouth, and Throat: oral mucosa is moist. Nares patent. Cardiovascular: Regular Rate and Rhythm Respiratory: Patient is in no distress, no accessory muscle use, lungs are clear to auscultation, no wheezing, rales or rhonchi Back: non-tender GI: Mild diffuse tenderness Musculoskeletal: The patient has no evidence of calf tenderness, no pitting edema, symmetrical pulses noted bilaterally Neurological: A&O, normal speech Psychiatric: Cooperative Constitutional Vital Signs, click to edit/add: Last Vital Signs Temp 98.1 F 04/04/25 11:14 Pulse 116 H 04/04/25 11:14 Resp 20 04/04/25 11:14 BP 106/76 04/04/25 11:14 Pulse Ox 96 04/04/25 11:14 O2 Del Method Room Air 04/04/25 11:14 Course Vital Signs Vital signs: Vital Signs Temperature 98.1 F 04/04/25 11:14 Pulse Rate 116 H 04/04/25 11:14 Respiratory Rate 04/04/25 11:14 Blood Pressure 106/76 04/04/25 11:14 Pulse Oximetry 96 04/04/25 11:14 Oxygen Delivery Method Room Air 04/04/25 11:14 Temperature 98.1 F 04/04/25 11:14 Pulse Rate 116 H 04/04/25 11:14 Respiratory Rate 04/04/25 11:14 Blood Pressure 106/76 04/04/25 11:14 Pulse Oximetry 96 04/04/25 11:14 Oxygen Delivery Method Room Air 04/04/25 11:14 Medical Decision Making [facility] Narrative Medical decision making narrative: Her workup is essentially negative. BUN and creatinine have returned to normal. Blood sugar mildly elevated. She states she is weak and cannot walk. I discussed the issues with the patient and she is willing to go to a rehab facility after today's admission. I have spoken to Dr. Burciaga as well. Treatment diagnosis and disposition were discussed with the patient. Differential Diagnosis Differential Diagnosis: Generalized weakness, hyperglycemia, dehydration, anemia Medical Records Medical records reviewed: Yes I reviewed the patient's medical records Lab Data Lab results reviewed: Yes I reviewed the patient's lab results Labs: Lab Results 04/04/25 04/04/25 Range/Units 11:30 12:00 WBC 8.9 (4.0-11.0) 10^3/uL RBC 4.00 L (4.20-5.40) 10^6/uL Hgb 11.7 L (12.0-16.0) g/dL Hct 34.4 L (36.0-48.0) % MCV 86.0 (81.0-99.0) fL MCH 29.3 (26.7-34.0) pg MCHC 34.0 (29.9-35.2) g/dL RDW 14.5 (11.0-15.0) % Plt Count 334 (150-450) 10^3/uL MPV 9.2 L (9.5-13.5) fL Seg Neuts % (Manual) 81.0 H (43.0-75.0) Band Neutrophils % 3.0 (0-5) % Lymphocytes % (Manual) 6.0 L (20.5-60.0) % Monocytes % (Manual) 7.0 (1.7-12.0) % Eosinophils % (Manual) 2.0 (0.9-7.0) % Basophils % (Manual) 1.0 (0.2-2.0) % Neutrophils # (Manual) 7.20 H (1.4-6.5) 10^3/uL Band Neutrophils # 0.3 (0.0-0.3) 10^3/uL Lymphocytes # (Manual) 0.53 L (1.20-3.80) 10^3/uL Monocytes # (Manual) 0.62 (0.30-0.80) 10^3/uL Eosinophils # (Manual) 0.17 (0.00-0.70) 10^3/uL Basophils # (Manual) 0.08 (0.00-0.10) 10^3/uL Anisocytosis 1+ Sodium 142 (136-145) mmol/L Potassium 3.8 (3.5-5.1) mmol/L Chloride 103 (98-107) mmol/L Carbon Dioxide 32.1 H (21.0-32.0) mmol/L Anion Gap 10.7 BUN 8.0 (7.0-18.0) mg/dL Creatinine 0.54 L (0.55-1.02) mg/dL Est GFR ( Amer) >60 (>=60 mL/min/1.73m^2) Est GFR (Non-Af Amer) >60 (>=60 mL/min/1.73m^2) BUN/Creatinine Ratio 14.8 Glucose 194 H (74-106) mg/dL Calcium 8.4 L (8.5-10.1) mg/dL Troponin I High Sens 33.7 (4.0-51.3) pg/mL Urine Color Lt. yellow (YELLOW) Urine Clarity Sl cloudy (CLEAR) Urine pH 7.0 (5.0-9.0) Ur Specific [place] 1.015 (1.005-1.025) Urine Protein Negative (NEG/TRACE) mg/dL Urine Glucose (UA) Negative (NEGATIVE) mg/dL Urine Ketones Negative (NEGATIVE) mg/dL Urine Occult Blood Small A (NEGATIVE) Urine Nitrite Positive A (NEGATIVE) Urine Bilirubin Negative (NEGATIVE) Urine Urobilinogen 0.2 (0.2-1.0) EU/dL Ur Leukocyte Esterase Trace A (NEGATIVE) ECG Data Attestation: I personally reviewed and interpreted this ECG as follows: (EKG on my interpretation shows sinus tachycardia with a rate of 115) Discharge Plan Discharge Chief Complaint: Weakness Clinical Impression: Generalized weakness Patient Disposition: Admitted As Inpatient Time of Disposition Decision: 12:49 Condition: Fair
[2025-04-04 11:55] LABS: Hematocrit 34.4 % (36.0-48.0); Hemoglobin 11.7 g/dL (12.0-16.0); Mean Corpuscular Hemoglobin 29.3 pg (26.7-34.0); Mean Platelet Volume 9.2 fL (9.5-13.5); Platelet Count 334 10^3/uL (150-450); Red Cell Distribution Width 14.5 % (11.0-15.0); White Blood Count 8.9 10^3/uL (4.0-11.0)
[2025-04-04 12:19] LABS: Anisocytosis 1+; Band Neutrophils Absolute 0.3 10^3/uL (0.0-0.3); Basophils Abs Manual 0.08 10^3/uL (0.00-0.10); Eosinophils Absolute Manual 0.17 10^3/uL (0.00-0.70); Lymphocytes Absolute Manual 0.53 10^3/uL (1.20-3.80); Monocytes Absolute Manual 0.62 10^3/uL (0.30-0.80)
[2025-04-04 12:23] LABS: Anion Gap 10.7; BUN Creatinine Ratio 14.8; Calcium 8.4 mg/dL (8.5-10.1); Carbon Dioxide 32.1 mmol/L (21.0-32.0); Chloride 103 mmol/L (98-107); Estimated GFR (African America >60 (>=60 mL/min/1.73m^2); Estimated GFR (Non-African Ame >60 (>=60 mL/min/1.73m^2); Glucose 194 mg/dL (74-106); Potassium 3.8 mmol/L (3.5-5.1); Sodium 142 mmol/L (136-145)
[2025-04-04 12:28] LABS: Troponin I High Sensitivity 33.7 pg/mL (4.0-51.3)
[2025-04-04 12:42] LABS: Bilirubin Urine NEGATIVE (NEGATIVE); Blood Urine SMALL (NEGATIVE); Clarity Urine SL CLOUDY (CLEAR); Color Urine LT. YELLOW (YELLOW); Glucose Urine UA NEGATIVE (NEGATIVE); Ketones Urine NEGATIVE (NEGATIVE); Leukocyte Esterase Urine TRACE (NEGATIVE); Nitrite Urine POSITIVE (NEGATIVE); Protein Urine NEGATIVE (NEG/TRACE); Specific Gravity Urine 1.015 (1.005-1.025); Urobilinogen Urine 0.2 EU/dL (0.2-1.0)
[2025-04-04 12:51] LABS: Bacteria Urine TRACE #/HPF (NONE SEEN); Cast Seen? NONE SEEN #/LPF (NONE SEEN); Crystals Seen? None Seen #/HPF (None Seen); Mucus Urine TRACE (NONE SEEN); Squamous Epithelial Cell Urine NONE SEEN #/LPF (NONE/RARE); Urine Culture Indicated YES-FRMC
--- NOTE | 2025-04-04 13:56 | P.HP_ITS ---
HPI H&P: HPI History of Present Illness Chief complaint: BLOOD IN STOOL, GENERALIZED WEAKNESS Narrative: Patient called after office noting she is unable to get out of her chair, with her weakness progressed at home was recommended she come back to the emergency room to be reevaluated, in the emergency room found to have sinus tachycardia and now a positive urinalysis result, likely creating her increased weakness needs admitted for workup and treatment of same, other labs are pending that may be significant to her overall treatment plan, lactate, liver, BNP, venous pH I saw patient in the emergency room, looks very fatigued, pale appearing, no other specific weakness, no chest pain, no shortness of breath Opioid HPI Opioid Management Most Recent Pain and Opioid Data: Last Pain Scale 2 Today, 14:09 Last Pain Intensity 2 03/31/25, 11:38 Last Pain Assessment Today, 14:09 Last ORT Total Score 0 03/30/25, 20:07 Last ORT Risk Category Low Risk 03/30/25, 20:07 Ur Phencyclidine Scrn, (NEGATIVE) Negative , 14:51 Review of Systems ROS Status of ROS 10 or more systems reviewed and unremark able except as noted in history and below [facility] Medical History (Updated 04/04/25 @ 14:17 by Chava Burciaga MD) Leukocytosis ?D72.829 - Elevated white blood cell count, unspecified (ICD-10) Colitis ?K52.9 - Noninfective gastroenteritis and colitis, unspecified (ICD-10) Cellulitis ?L03.90 - Cellulitis, unspecified (ICD-10) Encounter for cholecystectomy ?Z76.89 - Persons encountering health services in other specified circumstances (ICD-10) Multiple sclerosis ?G35 - Multiple sclerosis (ICD-10) HTN (hypertension) ?I10 - Essential (primary) hypertension (ICD-10) Surgical History H/O hysterectomy for benign disease ?Z90.710 - Acquired absence of both cervix and uterus (ICD-10) Social History (Updated 03/30/25 @ 23:58 by Ronit Hoffmann RN) Within the past year, how often did you have a drink containing alcohol: never Score interpretation: A score less than 3 is consistent with normal alcohol consumption. Smoking status: Never smoker Non-prescribed substance use: denies use Previous occupational history: disabled Known occupational exposures/hazards: No Highest level of school completed/degree received: some college, no degree Are you now , , , , never or living with a partner: Little interest or pleasure in doing things: not at all Feeling down, depressed, or hopeless: not at all Meds Home Medications and Allergies Home Medications ?Medication ?Instructions ?Recorded ?Confirmed ?Type buspirone 7.5 mg tablet 7.5 mg PO TID 03/22/2404/04 History potassium chloride 10 mEq 20 meq PO BID 03/22/2404/04 History tablet,extended release rosuvastatin 5 mg tablet 5 mg PO QPM 03/22/24 5 History tizanidine 4 mg tablet 8 mg PO TID PRN muscle spast icity 03/22/24 04/04/25 History fesoterodine 8 mg tablet,extended 8 mg PO QDAY 5 04/04/25 History release 24 hr aspirin 81 mg capsule 81 mg PO DAILY #30 caps 12/2704/04/25 Rx carvedilol 6.25 mg tablet 6.25 mg PO BID #60 tabs 0 12/2704/04/25 Rx clonidine 0.1 mg/24 hr weekly 1 patch transdermal QWEE K #4 ea 04/03/25 04/04/25 Rx transdermal patch magnesium oxide 400 mg (241.3 mg 400 mg PO BID #60 tab s 04/03/25 04/04/25 Rx magnesium) tablet pantoprazole 40 mg tablet,delayed 40 mg PO ACB #30 tab s 04/03/25 04/04/25 Rx release vancomycin 250 mg capsule 250 mg PO QID 10 days #40 ca ps 04/03/25 04/04/25 Rx Allergies Allergy/AdvReac Type Severity Reaction Status Date / Time Penicillins Allergy Severe Rash Verified 04/04/25 11:12 Sulfa (Sulfonamide Allergy Severe Hives Verified 04/04/25 11:12 Antibiotics) Exam Constitutional Vital Signs, click to edit/add: Last Vital Signs Temp 98.1 F 04/04/25 11:14 Pulse 101 H 04/04/25 13:40 Resp 17 04/04/25 13:40 BP 111/81 04/04/25 11:22 Pulse Ox 95 04/04/25 13:40 O2 Del Method Room Air 04/04/25 11:14 Common normals: apparent distress (Appears very fatigued ill-appearing) Chest Common normals: inspection of chest normal and palpation of chest normal Respiratory Common normals: normal respiratory effort, no retractions and no use of accessory muscles Cardio Common normals: regular rhythm and no murmurs; irregular rate Rate: tachycardic Extremity Common normals: normal to inspection, full ROM and no clubbing, cyanosis or edema Neuro Common normals: oriented x3, CN's II-XII intact bilaterally and moves all extremities; focal motor deficits (Severe generalized weakness) Results Labs Labs: Short CBC 04/04/25 Range/Units 11:30 WBC 8.9 (4.0-11.0) 10^3/uL Hgb 11.7 L (12.0-16.0) g/dL Hct 34.4 L (36.0-48.0) % Plt Count 334 (150-450) 10^3/uL BMP 04/04/25 11:30 Sodium 142 Potassium 3.8 Chloride 103 Carbon Dioxide 32.1 H BUN 8.0 Creatinine 0.54 L Glucose 194 H Calcium 8.4 L Urine 04/04/25 Range/Units 12:00 Urine Color Lt. yellow (YELLOW) Urine Clarity Sl cloudy (CLEAR) Urine pH 7.0 (5.0-9.0) Ur Specific [place] 1.015 (1.005-1.025) Urine Protein Negative (NEG/TRACE) mg/dL Urine Glucose (UA) Negative (NEGATIVE) mg/dL Assessment and Plan Assessment and Plan (1) Generalized weakness: (2) Severe protein-calorie malnutrition: (3) Multiple sclerosis: (4) HTN (hypertension): (5) C. difficile colitis: Plan Admission findings: Patient recently admitted and discharged with sepsis secondary to C. difficile colitisJe presented to the emergency room with increasing weakness, colitis persisting, patient will be admitted for workup and treatment of same C. difficile colitis with previous sepsis and failed outpatient treatment with diarrhea persisting resulting in dehydration and increasing weakness, restart IV metronidazole continue with oral Flagyl, IV fluid resuscitation Elevated BNP in the past-check level Iron deficiency anemia-monitor daily Appears to have acute UTI with positive nitrates in urine sample, check culture, start patient on IV levofloxacin Hypertension-maintain home medications Generalized anxiety disorder continue with home medication Magnesium deficiency-check level GERD-IV Protonix Chronic low back pain continue with home medications Admission status: Patient admitted recently with sepsis from C. difficile colitis, went home on oral vancomycin and failed treatment with diarrhea persisting now with dehydration, will need IV therapy for 3-4 more days so medically necessary treatment will span 2 midnights. Inpatient status
[2025-04-04 14:30] LABS: PCO2 VBG 41.7 mmHg (40.0-52.0); pH VBG 7.524 (7.330-7.430)
[2025-04-04 14:42] LABS: Magnesium 1.5 mg/dL (1.8-2.4)
[2025-04-04 14:44] LABS: Alanine Aminotransferase 32 U/L (14-59); Albumin Globulin Ratio 0.7; Alkaline Phosphatase 111 U/L (46-116); Aspartate Amino Transferase 28 U/L (15-37); Bilirubin Direct 0.1 mg/dL (0.0-0.2); Bilirubin Total 0.4 mg/dL (0.2-1.0); Globulin 2.9 g/dL; Total Protein 4.9 g/dL (6.4-8.2)
--- NOTE | 2025-04-04 14:44 | SWNOTE1 ---
SW and I met pt in room. Pt came from home where she lives with . Pt uses motorized wheelchair at home. SW asked if pt would like to go to SNF. Pt was agreeable. SW shared with pt list of facilities from Medicare.gov, pt chose [facility]. No PT/OT eval at this time but SW will send information to [facility] for precert. Referral sent the [facility] including facesheet, ED note, H&P, labs. SW did call to PT and PT said someone will be over around 4pm to evaluate pt.
--- OUTSIDE RECORDS SUMMARY | 2025-04-04 14:46 | XMS_ITS | Encounter Summary ---
Author Organization [facility] Address [address] [place] [address] Care Team Providers Care Tile Helper Name Role Phone Chava Burciaga MD Primary Care Provider [phone] Encounter Details Date Type Department Care Team (Late st Contact Info) Description 04/03/2025 Telephone [facility] [phone] [facility] [address] [place] [phone] Federica Romano, RECREATION PROGRAM SPECIALIST [address] [facility] [address] [place], [place] [phone] Social History Tobacco Use Types Packs/Day Years [...] [facility] [address] [facility] [address] [place] [address] Onel Dodge MD [address] [place] [phone] documented as of this encounter Visit Diagnoses Not on filedocumented in this encounter Care Teams Tile Helper Relationship Specialty Start Date End Date Chava Burciaga MD PCP - General Family Medicine 06/15/24 documented as of this encounter
--- OUTSIDE RECORDS SUMMARY | 2025-04-04 14:46 | XMS_ITS | Encounter Summary ---
Author Organization [facility] Address [address] [facility] [place] [address] Care Team Providers Care Open Source Developer Name Role Phone Chava Burciaga MD Primary Care Provider [phone] Encounter Details Date Type Department Care Team (Late Contact Info) Description 05/13/2023 Abstract [facility] [address] [place] [phone] Onel Dodge MD [address] [facility] [address] [place] [phone] Social History Tobacco Use Types Packs/Day Years [...] 05/24/2025 11:00 AM EDT Office Visit [facility] [address] [facility] [address] [place] [address] [place] [phone] Onel Dodge MD [address] [facility] [address] [place] [address] [phone] documented as of this encounter Visit Diagnoses Not on filedocumented in this encounter Care Teams Open Source Developer Relationship Specialty Start Date End Date Chava Burciaga MD PCP - General Family Medicine 06/15/24 documented as of this encounter
--- OUTSIDE RECORDS SUMMARY | 2025-04-04 14:46 | XMS_ITS | Encounter Summary ---
Author Organization [facility] Address [address] [facility] [place] [address] Care Team Providers Care Administrative Assistant Office Manager Name Role Phone Chava Burciaga MD Primary Care Provider [phone] Encounter Details Date Type Department Care Team (Late Contact Info) Description 09/05/2023 Abstract [facility] [address] [place] [phone] Onel Dodge MD [address] [facility] [address] [place] [phone] Social History Tobacco Use Types Packs/Day Years [...] 05/24/2025 11:00 AM EDT Office Visit [facility] [address] [facility] [address] [phone] Onel Dodge MD [address] [facility] [address] [place] [phone] documented as of this encounter Visit Diagnoses Not on filedocumented in this encounter Care Teams Administrative Assistant Office Manager Relationship Specialty Start Date End Date Chava Burciaga MD PCP - General Family Medicine 06/15/24 documented as of this encounter
--- OUTSIDE RECORDS SUMMARY | 2025-04-04 14:46 | XMS_ITS | Clinical Summary ---
Author Organization [facility] Address [address] [place] [address] Care Team Providers Care Engineer Fishing Vessel Name Role Phone Chava Burciaga MD Primary [...] Active cholecalcifer ol (Vitamin D-3) 1.25 MG (87884 UT) capsule Take 1 capsule by mouth [...] Department Care Team Description 04/03/2025 Telephone [facility] [address] [place] [phone] Federica Romano NP 03/13/2025 Refill [facility] [address] [place] [phone] Federica Romano NP Multiple sclerosis (CMS/HCC); Acute relapsing multiple sclerosis (CMS/HCC) 02/22/2025 2:40 PM EDT Office Visit [facility] [address] [phone] Onel Dodge MD Vertigo of central origin (Primary Dx); Multiple sclerosis (CMS/HCC); Acute relapsing multiple sclerosis (CMS/HCC) 02/22/2025 Bamboo flowsheet [facility] [address] [place] [address] Onel Dodge MD 02/22/2025 Travel [...] Visit [facility] [address] [place] [address] Onel Dodge MD [address] [facility] [address] [place] [phone] Health Maintenance Due Date Last Done Comments CT Colonography 1971 Colonoscopy 1971 Colorectal Cancer Screening 1971 FIT-DNA 1971 FIT 1971 FOBT 1971 Sigmoidoscopy 1971 Pap Smear 1992 Cervical Cancer Screening 2001 HPV/Cotest 2001 Mammogram 2011 Influenza Vaccine Completed 08/26/2024, , 08/28/2021, Additional history exists Insurance MEDICAID [place] [facility] MEDICARE ADVANTAGE Care Teams Engineer Fishing Vessel Relationship Specialty Start Date End Date Chava Burciaga MD PCP - General Family Medicine 06/15/24
[2025-04-04] MEDS: ACETAMINOPHEN 500 MG TABLET 1000 MG PO (15:21)
[2025-04-04] MEDS: LACTATED RINGER'S SOLUTION 1,000 ML 100 ML IV (15:21)
[2025-04-04] MEDS: LEVOFLOXACIN IN DEXTROSE 5 % 500 MG/100 ML PREMIX 100 MG IV (15:25)
[2025-04-04] MEDS: BUSPIRONE HCL 15 MG TABLET 7.5 MG PO ×2 (15:25→21:01)
[2025-04-04] MEDS: PANTOPRAZOLE SODIUM 40 MG VIAL IV (15:25)
[2025-04-04] MEDS: METRONIDAZOLE/SODIUM CHLORIDE 500 MG/100 ML PREMIX 100 MG IV ×2 (16:29→21:01)
[2025-04-04 17:05] LABS: BUN Creatinine Ratio 18.6; Calcium 8.4 mg/dL (8.5-10.1); Chloride 102 mmol/L (98-107); Estimated GFR (African America >60 (>=60 mL/min/1.73m^2); Estimated GFR (Non-African Ame >60 (>=60 mL/min/1.73m^2); Glucose 188 mg/dL (74-106); Sodium 141 mmol/L (136-145)
[2025-04-04 17:58] LABS: ABG PCO2 45.4 mmHg (35.0-45.0); Base Excess ABG 9.8 mmol/L (-2.0-2.0); HCO3 ABG 33.4 mmol/L (22.0-26.0); PO2 ABG 84.6 mmHg (80.0-100.0); pH ABG 7.475 (7.350-7.450)
[2025-04-04 17:59] LABS: Allen Test POSITIVE (POSITIVE); O2 Mode ROOM AIR; Puncture Site R RAD
[2025-04-04] MEDS: VANCOMYCIN HCL 7,500 MG/150 ML BOTTLE 250 MG PO ×2 (18:07→21:01)
[2025-04-04] MEDS: L. ACIDOPHILUS/L.BULGARICUS TABLET 1 TAB PO (20:53)
[2025-04-04] MEDS: PROSTAT 15 GM PROTEIN/100 CAL 30 ML LIQUID PACKET PO (20:53)
[2025-04-04] MEDS: POTASSIUM CHLORIDE 10 MEQ ER TABLET 20 MEQ PO (20:53)
[2025-04-04] MEDS: CARVEDILOL 6.25 MG TABLET PO (20:53)
[2025-04-04] MEDS: MAGNESIUM OXIDE 400 MG TABLET PO (20:53)
[2025-04-04] MEDS: ENSURE HP 237 ML LIQUID PO (20:53)
[2025-04-04] MEDS: ATORVASTATIN CALCIUM 20 MG TABLET PO (21:01)
[2025-04-05] VITALS (7 sets, daily range): BP systolic 137–161; BP diastolic 95–104; PULSE 99–122; TEMP 36.4–36.8; O2SAT 20–97
[2025-04-05] MEDS: LACTATED RINGER'S SOLUTION 1,000 ML 100 ML IV ×2 (00:07→13:17)
[2025-04-05] MEDS: METRONIDAZOLE/SODIUM CHLORIDE 500 MG/100 ML PREMIX 100 MG IV ×3 (04:21→21:10)
[2025-04-05 05:10] LABS: Basophils Percent Auto 0.4 % (0.2-2.0); Eosinophils Absolute Auto 0.1 10^3/uL (0.0-0.7); Eosinophils Percent Auto 1.4 % (0.9-7.0); Hematocrit 34.1 % (36.0-48.0); Hemoglobin 11.4 g/dL (12.0-16.0); Immature Granulocytes Abs Auto 0.16 10^3/uL (0.00-0.03); Lymphocytes Absolute Auto 0.7 10^3/uL (1.2-3.8); Lymphocytes Percent Auto 8.5 % (20.5-60.0); Mean Corpuscular HGB Conc 33.4 g/dL (29.9-35.2); Mean Corpuscular Volume 86.8 fL (81.0-99.0); Mean Platelet Volume 9.1 fL (9.5-13.5); Monocytes Percent Auto 11.8 % (1.7-12.0); Neutrophils Absolute Auto 6.1 10^3/uL (1.4-6.5); Neutrophils Percent Auto 75.9 % (43.0-75.0); Platelet Count 343 10^3/uL (150-450); Red Blood Count 3.93 10^6/uL (4.20-5.40); Red Cell Distribution Width 14.5 % (11.0-15.0); White Blood Count 8.1 10^3/uL (4.0-11.0)
[2025-04-05 05:29] LABS: Alanine Aminotransferase 26 U/L (14-59); Albumin Globulin Ratio 0.6; Albumin Level 1.8 g/dL (3.4-5.0); Alkaline Phosphatase 124 U/L (46-116); Anion Gap 9.2; Aspartate Amino Transferase 16 U/L (15-37); BUN Creatinine Ratio 19.1; Bilirubin Total 0.2 mg/dL (0.2-1.0); Calcium 8.8 mg/dL (8.5-10.1); Carbon Dioxide 31.8 mmol/L (21.0-32.0); Chloride 104 mmol/L (98-107); Estimated GFR (African America >60 (>=60 mL/min/1.73m^2); Estimated GFR (Non-African Ame >60 (>=60 mL/min/1.73m^2); Globulin 2.9 g/dL; Glucose 168 mg/dL (74-106); Sodium 141 mmol/L (136-145); Total Protein 4.7 g/dL (6.4-8.2)
[2025-04-05] MEDS: PANTOPRAZOLE SODIUM 40 MG TABLET.DR PO (05:52)
[2025-04-05] MEDS: VANCOMYCIN HCL 7,500 MG/150 ML BOTTLE 250 MG PO ×4 (05:52→21:11)
[2025-04-05] MEDS: BUSPIRONE HCL 15 MG TABLET 7.5 MG PO ×2 (05:52→21:12)
--- NOTE | 2025-04-05 06:34 | P.PN_ITS ---
Progress Note: Subjective Subjective Interval history: Condition deteriorated overnight, difficulty ambulating secondary to pain more right lower quadrant, diarrhea persisting despite IV and oral medications Exam Constitutional Vital Signs, click to edit/add: Last Vital Signs Temp 97.5 F L 04/05/25 04:25 Pulse 122 H 04/05/25 04:25 Resp 18 04/05/25 04:25 BP 150/104 H 04/05/25 04:25 Pulse Ox 96 04/05/25 04:25 O2 Del Method Room Air 04/05/25 04:25 Documenting provider has reviewed patient's vital signs: yes Common normals: apparent distress (Mild to moderate painful distress, notably worse than yesterday) Respiratory Common normals: normal respiratory effort, no retractions and clear to auscultation bilaterally Cardio Common normals: regular rhythm; irregular rate Rate: tachycardic GI Common normals: negative for Normal to inspection, nondistended, normoactive bowel sounds present (Mildly distended), negative for soft to palpation (Firmness right lower quadrant) and tender (Significant tenderness right lower quadrant) Progress Note: Objective Labs Labs: Short CBC 04/04/25 04/05/25 Range/Units 11:30 04:52 WBC 8.9 8.1 (4.0-11.0) 10^3/uL Hgb 11.7 L 11.4 L (12.0-16.0) g/dL Hct 34.4 L 34.1 L (36.0-48.0) % Plt Count 334 343 (150-450) 10^3/uL BMP 04/04/25 04/04/25 04/05/25 11:30 16:49 04:52 Sodium 142 141 141 Potassium 3.8 4.0 4.0 Chloride 103 102 104 Carbon Dioxide 32.1 H 37.0 H 31.8 BUN 8.0 8.0 9.0 Creatinine 0.54 L 0.43 L 0.47 L Glucose 194 H 188 H 168 H Calcium 8.4 L 8.4 L 8.8 Liver Function 04/04/25 04/05/25 Range/Units 11:30 04:52 Total Bilirubin 0.4 0.2 (0.2-1.0) mg/dL Direct Bilirubin 0.1 (0.0-0.2) mg/dL AST 28 16 (15-37) U/L ALT 32 26 (14-59) U/L Alkaline Phosphatase 111 124 H (46-116) U/L Albumin 2.0 L 1.8 L (3.4-5.0) g/dL Urine 04/04/25 Range/Units 12:00 Urine Color Lt. yellow (YELLOW) Urine Clarity Sl cloudy (CLEAR) Urine pH 7.0 (5.0-9.0) Ur Specific [place] 1.015 (1.005-1.025) Urine Protein Negative (NEG/TRACE) mg/dL Urine Glucose (UA) Negative (NEGATIVE) mg/dL Progress Note: A&P Assessment and Plan (1) Generalized weakness: (2) Severe protein-calorie malnutrition: (3) Multiple sclerosis: (4) HTN (hypertension): (5) C. difficile colitis: Plan Admission findings: Patient recently admitted and discharged with sepsis secondary to C. difficile colitisJe presented to the emergency room with increasing weakness, colitis persisting, patient will be admitted for workup and treatment of same C. difficile colitis with previous sepsis and failed outpatient treatment with diarrhea persisting resulting in dehydration and increasing weakness,-condition deteriorated overnight with increasing pain and fullness right lower quadrant, check CT scan abdomen pelvis with IV and oral contrast, signs and symptoms of deterioration of your increased heart rate Sinus tachycardia-worse this morning, IV fluid hydration and assess the above for increasing pain Elevated BNP in the past-stable Iron deficiency anemia-Down slightly today Appears to have acute UTI with positive nitrates in urine sample, check and culture tomorrow patient on IV antibiotics Hypertension-maintain home medications Hyperglycemia on admission-improved today Generalized anxiety disorder continue with home medication Magnesium deficiency-check level pending today, IV bolus and oral supplements GERD-IV Protonix Chronic low back pain continue with home medications Admission status: Patient admitted recently with sepsis from C. difficile colitis, went home on oral vancomycin and failed treatment with diarrhea persisting now with dehydration, will need IV therapy for 3-4 more days so medically necessary treatment will span 2 midnights. Inpatient status ?
--- NOTE | 2025-04-05 07:51 | CT_ITS ---
[address] [address] Patient Name: HERMELINDO WEINBERG MRN: [id number] date: 1970 Sex: F Assigned Patient Location: [place] Current Patient Location: [place] Accession/Order Number: [id number] Exam Date: 04/05/2025 11:35 Report Date: 04/05/2025 11:38 At the request of: KRISHAN SANABRIA MD Procedure: CT abdomen pelvis w con CT abdomen pelvis w con 04/05/2025 11:06 AM SIGNS AND SYMPTOMS: Acute abdominal pain and pelvic fullness, history of recent rectal bleeding. TECHNIQUE: Multidetector ct axial images of the abdomen and pelvis were obtained with IV contrast. Multiplanar reformats were performed and reviewed to further define anatomy and possible pathology. CT was performed with one or more of the following dose reduction techniques: Automated exposure control, adjustment of the mA and/or kV according to patient size, or use of iterative reconstruction technique. COMPARISON: None. FINDINGS: Lower Chest: There is a small left-sided pleural effusion. There is dependent atelectasis at the left lung base. ABDOMEN: Liver: Within normal limits. Bile Ducts: Normal caliber. Gallbladder: Previously removed Pancreas: Within normal limits. Spleen: Within normal limits. Adrenals: Within normal limits. Kidneys: Within normal limits. Pelvis: Reproductive Organs: No pelvic masses. Ureters: Within normal limits. Bladder: There is a Lafleur catheter within the bladder. The bladder wall is thickened with adjacent fat stranding suspicious for cystitis. Bowel: There is thickening of the wall of the rectum with adjacent fat stranding suggesting proctitis. There is no bowel obstruction. Liquid stool is noted within the colon. Mesenteric Lymph Nodes: No enlarged mesenteric lymph nodes. Peritoneum: No ascites or free air, no fluid collection. Vessels: Atherosclerotic changes are noted in the abdominal aorta. Retroperitoneum: Within normal limits. Abdominal Wall: Within normal limits. Bones: Within normal limits. CT/CT abdomen pelvis w con IMPRESSION: There is a Lafleur catheter within the bladder. The bladder wall is thickened with adjacent fat stranding suspicious for cystitis. There is thickening of the wall of the rectum with adjacent fat stranding suggesting proctitis. There is no bowel obstruction or obstructive uropathy. There is a small left-sided pleural effusion with accompanying dependent atelectasis. This is of uncertain etiology.. Impression dictated by: Jad Elias M.D. 04/05/2025 11:38 AM Dictation Location: [place] [address] Electronically authenticated by: [id number] Y Date: 04/05/2025 11:38
--- NOTE | 2025-04-05 08:13 | SWNOTE1 ---
MICAH reached out to Kameron at [facility] and she did submit precert yesterday evening once she received PT note. MICAH to send updates today.
--- NOTE | 2025-04-05 08:32 | CM.NOTE ---
Rounds made with Dr. Burciaga, pt c/o lower abdominal pain. Dr. Burciaga will order CT of abdomen and pelvis today. No discharge at this time.
[2025-04-05] MEDS: ASPIRIN 81 MG TAB.CHEW PO (08:47)
[2025-04-05] MEDS: POTASSIUM CHLORIDE 10 MEQ ER TABLET 20 MEQ PO ×2 (08:47→21:10)
[2025-04-05] MEDS: MAGNESIUM OXIDE 400 MG TABLET PO ×2 (08:47→21:10)
[2025-04-05] MEDS: SOLIFENACIN SUCCINATE 10 MG TABLET PO (08:47)
[2025-04-05] MEDS: L. ACIDOPHILUS/L.BULGARICUS TABLET 1 TAB PO (08:48)
[2025-04-05] MEDS: METOPROLOL TARTRATE 50 MG TABLET PO ×2 (08:48→21:11)
--- NOTE | 2025-04-05 09:00 | CM.NOTE ---
Medicare Outpatient Observation Notice discussed with pt, pt verbalizes understanding and signs paper. Original given to pt and copy placed on pt's chart.
[2025-04-05] MEDS: 0.9 % SODIUM CHLORIDE 1,000 ML 500 ML IV (09:19)
[2025-04-05 09:58] LABS: Magnesium 1.3 mg/dL (1.8-2.4)
--- NOTE | 2025-04-05 11:10 | PT.DAILY ---
Physical Therapy Daily Note PT Daily Note/Assess Start: 04/04/25 16:36 Freq: Status: Active Protocol: Document 04/05/25 11:07 JORY (Rec: 04/05/25 11:10 JORY [id number]) Physical Therapy Daily Note/Assessment Time In/Time Out Time In 10:40 Time Out 10:50 Pain In Pain N/A Pain Out Pain N/A Subjective Subjective Pt supine upon arrival. Agrees to PT prior to CT scan. Therapeutic Exercise Time Therapeutic Exercise 3 Minutes (minutes) Therapeutic Exercise 0 Units Therapeutic Exercise Treatment Therapeutic Exercise AP in supine 10x. LAQ and marches while sitting 10x ea Treatment with AA. Therapeutic Activity Time Therapeutic Activity 5 Minutes (minutes) Therapeutic Activity 1 Units Therapeutic Activity Treatment Bed Mobility Ability Minimum Assist Chair Transfer Minimum Assist Ability Therapeutic Activity Pt performs supine>sit with Matilde and increased time to Comments complete. SIt>stand Matilde to RW. Pt amb 40' with RW, CGA /Matilde for safety with slow marcus and short step length. Returned to supine Matilde. Diagnostic imagining taking pt down for testing left under their care. Total Physical Therapy Time Total Therapy 8 Minutes Total Physical 1 Therapy Units Summary Daily Note Summary Improved transfer ability. Slow marcus with RW but no LOB.
[2025-04-05] MEDS: MAGNESIUM SULFATE IN WATER 4 GM/100 ML PIGGYBACK IV (11:26)
--- NOTE | 2025-04-05 11:45 | SWNOTE1 ---
Faxed PT note to [facility] for updates.
[2025-04-05] MEDS: LEVOFLOXACIN IN DEXTROSE 5 % 500 MG/100 ML PREMIX 100 MG IV (14:20)
--- NOTE | 2025-04-05 14:50 | SWNOTE1 ---
SW reached out to Ousmane at [facility] and precert is still pending.
--- NOTE | 2025-04-05 18:03 | DIETREC ---
Visited w/pt in room. RN brought a pudding cup, which pt accepted and ate during our visit. Pt shows wt loss of 2.0 kg/4.0% x 5 days, indicates she was eating OK at home between hospital stays. She states she is not diabetic but has a family history of DM. She does not follow a diabetic diet at home. Current diet order is regular/thin with supplement orders in place. Encourage improved PO intakes. Will continue to follow PRN.
[2025-04-05] MEDS: ENSURE HP 237 ML LIQUID PO (21:10)
[2025-04-05] MEDS: ATORVASTATIN CALCIUM 20 MG TABLET PO (21:10)
[2025-04-06] VITALS: BP 152/98; PULSE 88; TEMP 36.8; O2SAT 95
[2025-04-06] MEDS: METRONIDAZOLE/SODIUM CHLORIDE 500 MG/100 ML PREMIX 100 MG IV ×2 (01:44→08:21)
[2025-04-06] MEDS: LACTATED RINGER'S SOLUTION 1,000 ML 100 ML IV (01:44)
[2025-04-06 04:00] VITALS: BP 152/98; PULSE 102; TEMP 36.4; O2SAT 95
[2025-04-06 05:32] LABS: Basophils Percent Auto 0.3 % (0.2-2.0); Eosinophils Absolute Auto 0.2 10^3/uL (0.0-0.7); Eosinophils Percent Auto 1.5 % (0.9-7.0); Hematocrit 36.4 % (36.0-48.0); Immature Granulocytes Abs Auto 0.15 10^3/uL (0.00-0.03); Immature Granulocytes Pct Auto 1.5 % (0.0-0.5); Lymphocytes Absolute Auto 0.8 10^3/uL (1.2-3.8); Lymphocytes Percent Auto 7.4 % (20.5-60.0); Mean Corpuscular Hemoglobin 28.5 pg (26.7-34.0); Mean Corpuscular Volume 86.5 fL (81.0-99.0); Mean Platelet Volume 8.7 fL (9.5-13.5); Monocytes Percent Auto 9.7 % (1.7-12.0); Neutrophils Absolute Auto 8.2 10^3/uL (1.4-6.5); Neutrophils Percent Auto 79.6 % (43.0-75.0); Platelet Count 371 10^3/uL (150-450); Red Blood Count 4.21 10^6/uL (4.20-5.40); Red Cell Distribution Width 14.6 % (11.0-15.0); White Blood Count 10.2 10^3/uL (4.0-11.0)
--- NOTE | 2025-04-06 05:45 | P.PN_ITS ---
Exam Constitutional Vital Signs, click to edit/add: Last Vital Signs Temp 98.2 F 04/06/25 00:00 Pulse 88 04/06/25 00:00 Resp 20 04/06/25 00:00 BP 152/98 H 04/06/25 00:00 Pulse Ox 95 04/06/25 00:00 O2 Del Method Room Air 04/06/25 00:00 Progress Note: Objective Labs Labs: Short CBC 04/06/25 Range/Units 05:17 WBC 10.2 (4.0-11.0) 10^3/uL Hgb 12.0 (12.0-16.0) g/dL Hct 36.4 (36.0-48.0) % Plt Count 371 (150-450) 10^3/uL Progress Note: A&P Assessment and Plan (1) Generalized weakness: (2) Severe protein-calorie malnutrition: (3) Multiple sclerosis: (4) HTN (hypertension): (5) C. difficile colitis: Plan Admission findings: Patient recently admitted and discharged with sepsis secondary to C. difficile colitisJe presented to the emergency room with increasing weakness, colitis persisting, patient will be admitted for workup and treatment of same C. difficile colitis with previous sepsis and failed outpatient treatment with diarrhea persisting resulting in dehydration and increasing weakness,-condition deteriorated overnight with increasing pain and fullness right lower quadrant, check CT scan abdomen pelvis with IV and oral contrast, signs and symptoms of deterioration of your increased heart rate Sinus tachycardia-worse this morning, IV fluid hydration and assess the above for increasing pain Elevated BNP in the past-stable Iron deficiency anemia-Down slightly today Appears to have acute UTI with positive nitrates in urine sample, check and culture tomorrow patient on IV antibiotics Hypertension-maintain home medications Hyperglycemia on admission-improved today Generalized anxiety disorder continue with home medication Magnesium deficiency-check level pending today, IV bolus and oral supplements GERD-IV Protonix Chronic low back pain continue with home medications Admission status: Patient admitted recently with sepsis from C. difficile colitis, went home on oral vancomycin and failed treatment with diarrhea persisting now with dehydration, will need IV therapy for 3-4 more days so medically necessary treatment will span 2 midnights. Inpatient status Urinary Catheter Management Urinary Catheter Management Urethral: Cath placed during this visit: yes Insertion date: 04/05/25 Insertion time: 09:20
[2025-04-06 05:48] LABS: Alanine Aminotransferase 28 U/L (14-59); Albumin Globulin Ratio 0.7; Alkaline Phosphatase 105 U/L (46-116); Anion Gap 9.4; Aspartate Amino Transferase 19 U/L (15-37); BUN Creatinine Ratio 11.1; Bilirubin Total 0.3 mg/dL (0.2-1.0); Calcium 8.9 mg/dL (8.5-10.1); Carbon Dioxide 31.5 mmol/L (21.0-32.0); Chloride 105 mmol/L (98-107); Estimated GFR (African America >60 (>=60 mL/min/1.73m^2); Estimated GFR (Non-African Ame >60 (>=60 mL/min/1.73m^2); Glucose 145 mg/dL (74-106); Potassium 3.9 mmol/L (3.5-5.1); Sodium 142 mmol/L (136-145)
[2025-04-06] MEDS: BUSPIRONE HCL 15 MG TABLET 7.5 MG PO (05:51)
[2025-04-06] MEDS: PANTOPRAZOLE SODIUM 40 MG TABLET.DR PO (05:51)
[2025-04-06] MEDS: VANCOMYCIN HCL 7,500 MG/150 ML BOTTLE 250 MG PO ×2 (05:52→11:17)
[2025-04-06 07:11] VITALS: BP 151/98; PULSE 104; TEMP 36.9; O2SAT 97
--- NOTE | 2025-04-06 08:11 | CM.NOTE ---
Rounds made with Dr. Burciaga, pt will discharge to [facility] for skilled therapy.
[2025-04-06] MEDS: METOPROLOL TARTRATE 50 MG TABLET PO (08:21)
[2025-04-06] MEDS: ASPIRIN 81 MG TAB.CHEW PO (08:21)
[2025-04-06] MEDS: SOLIFENACIN SUCCINATE 10 MG TABLET PO (08:21)
[2025-04-06] MEDS: L. ACIDOPHILUS/L.BULGARICUS TABLET 1 TAB PO (08:21)
[2025-04-06] MEDS: POTASSIUM CHLORIDE 10 MEQ ER TABLET 20 MEQ PO (08:21)
[2025-04-06] MEDS: MAGNESIUM OXIDE 400 MG TABLET PO (08:21)
--- NOTE | 2025-04-06 08:40 | SWNOTE1 ---
MICAH received a message from Kameron Myers and pt is approved to go. MICAH messaged doctor and nurse.
--- NOTE | 2025-04-06 08:48 | P.DS_ITS ---
DS: Providers Provider Date of admission: 04/04/25 14:24 Primary care physician: Chava Burciaga MD Consults: 04/04/25 Consult to Team Driver Routine Reason for consult:: [facility]it[facility]iary 04/04/25 14:03 Consult to Pharmacy Routine Consulting Provider: Reason for consultation: Please [place] me when Med Rec is Updated Has provider been notified: No Occupational Therapy Eval and Treat Routine Reason for consultation: Only if needed for Rehab Has provider been notified: No Physical Therapy Eval and Treat Routine Reason for consultation: Eval and Treat Has provider been notified: No 04/04/25 14:10 Consult to Team Driver Routine Reason for consult:: Penitentiary DS: Diagnosis Discharge Diagnosis (1) Generalized weakness: (2) Severe protein-calorie malnutrition: (3) Multiple sclerosis: (4) HTN (hypertension): (5) C. difficile colitis: Plan Admission findings: Patient recently admitted and discharged with sepsis secondary to C. difficile colitisJe presented to the emergency room with increasing weakness, colitis persisting, patient will be admitted for workup and treatment of same C. difficile colitis with previous sepsis and failed outpatient treatment with diarrhea persisting resulting in dehydration and increasing weakness,Improving Sinus tachycardia-Resolved Elevated BNP in the past-stable Iron deficiency anemia-Down slightly today Appears to have acute UTI with positive nitrates in urine sample, check and culture tomorrow Hypertension-maintain home medications Hyperglycemia on admission-improved today Generalized anxiety disorder continue with home medication Magnesium deficiency-check level pending today, IV bolus and oral supplements GERD-stable Chronic low back pain continue with home medications Admission status: Patient admitted recently with sepsis from C. difficile colitis, went home on oral vancomycin and failed treatment with diarrhea persisting now with dehydration, will need IV therapy for 3-4 more days so medically necessary treatment will span 2 midnights. Inpatient status DS: Summary Hospital Course Hospital Course: Patient was admitted with aggressive C. difficile colitis resulting in sepsis, discharged to home but when she got home she still was unable to ambulate having increasing weakness and diarrhea persisting, we presented the emergency room with dehydration acute UTI secondary to Lafleur catheter placement from previous admission, found to have bladder outlet obstruction, Lafleur catheter was placed and will maintain that, C. difficile colitis ongoing treatment, yesterday she still has significant abdominal pain and tachycardia CT scan was obtained which showed the colitis, proctitis. Today she is improved, she is in desperate need of rehab and she is an excellent rehabilitation candidate. At this point she is medically stable for discharge, medications to this and I will follow patient at rehab Time Spent with Patient Time attestation: Total time spent providing and/or coordinating discharge services: Exam Constitutional Vital Signs, click to edit/add: Last Vital Signs Temp 98.4 F 04/06/25 07:11 Pulse 104 H 04/06/25 07:11 Resp 20 04/06/25 07:11 BP 151/98 H 04/06/25 07:11 Pulse Ox 97 04/06/25 07:11 O2 Del Method Room Air 04/06/25 04:00 Documenting provider has reviewed patient's vital signs: yes Common normals: no apparent distress Chest Common normals: inspection of chest normal Respiratory Common normals: normal respiratory effort, no retractions and clear to auscultation bilaterally Cardio Common normals: regular rate and regular rhythm GI Common normals: Normal to inspection, nondistended, normoactive bowel sounds present and soft to palpation; tender (Tenderness improved from previous day) Neuro Common normals: oriented x3, CN's II-XII intact bilaterally and moves all extremities DS: Data Data Completed and Pending Labs on day of discharge: Labs from last 24 hours 04/06/25 04/05/25 05:17 09:35 WBC 10.2 RBC 4.21 Hgb 12.0 Hct 36.4 MCV 86.5 MCH 28.5 MCHC 33.0 RDW 14.6 Plt Count 371 MPV 8.7 L Neut % (Auto) 79.6 H Lymph % (Auto) 7.4 L [place] % (Auto) 9.7 Eos % (Auto) 1.5 Baso % (Auto) 0.3 Neut # (Auto) 8.2 H Lymph # (Auto) 0.8 L [place] # (Auto) 1.0 H Eos # (Auto) 0.2 Baso # (Auto) 0.0 Abs Immat Gran (auto) 0.15 H Imm/Tot Granulo (auto) 1.5 H Sodium 142 Potassium 3.9 Chloride 105 Carbon Dioxide 31.5 Anion Gap 9.4 BUN 4.0 L Creatinine 0.36 L Est GFR ( Amer) >60 Est GFR (Non-Af Amer) >60 BUN/Creatinine Ratio 11.1 Glucose 145 H Calcium 8.9 Magnesium 1.3 L Total Bilirubin 0.3 AST 19 ALT 28 Alkaline Phosphatase 105 Total Protein 5.0 L Albumin 2.0 L Globulin 3.0 Albumin/Globulin Ratio 0.7 Preliminary micro results at discharge 04/04/25 12:00 Urine Culture - Preliminary Urine,Clean Catch Pending - Specimen sent to [facility] Discharge Plan Discharge Disposition: Xfer SNF Condition: Fair Discharge Medications: New metoprolol tartrate 50 mg Tablet 50 mg PO BID Qty: 60 11RF Pro-Stat Sugar Free 15 gram- 100 kcal/30 mL Liquid In Packet 1 ea PO BID Qty: 2880 11RF Continued fesoterodine 8 mg tablet extended release 24 hr 8 mg PO QDAY clonidine 0.1 mg/24 hr Patch Weekly 1 patch transdermal QWEEK Qty: 4 11RF magnesium oxide 400 mg (241.3 mg magnesium) Tablet 400 mg PO BID Qty: 60 11RF pantoprazole 40 mg Tablet,Delayed Release (Dr/Ec) 40 mg PO ACB Qty: 30 11RF aspirin 81 mg capsule 81 mg PO DAILY Qty: 30 11RF vancomycin 250 mg capsule 250 mg PO QID 10 Days Qty: 40 0RF Patient Comments: 04/03/25-04/12/25 buspirone 7.5 mg tablet 7.5 mg PO TID potassium chloride 10 mEq tablet extended release 20 meq PO BID rosuvastatin 5 mg tablet 5 mg PO QPM tizanidine 4 mg tablet 8 mg PO TID PRN (Reason: muscle spasticity) Lactobacillus acidoph-L.bulgar [Floranex] 1 million cell tablet 1 tab PO BID Discontinued carvedilol 6.25 mg Tablet 6.25 mg PO BID Qty: 60 11RF Print Language: Georgian Forms: Portal Instructions
--- NOTE | 2025-04-06 08:56 | REH.PTDLY ---
Physical Therapy Daily Note PT Daily Note/Assess Start: 04/04/25 16:36 Freq: Status: Active Protocol: Document 04/06/25 08:38 RHIANNA (Rec: 04/06/25 08:56 RHIANNA [id number]) Physical Therapy Daily Note/Assessment Time In 08:14 Time Out 08:32 Subjective Pt in bed upon arrival. Just waiting to go to rehab per pt. Tired today. Therapeutic Exercise 8 Minutes (minutes) Therapeutic Exercise 0 Units Therapeutic Exercise Instructed in B LE supine exs 10x ea for improved Treatment strength with AA-PROM on R LE due to weakness. Pt needs assistance with L LE for greater ROM. Therapeutic Activity 9 Minutes (minutes) Therapeutic Activity 1 Units Therapeutic Activity Mod A with supine to sit transfers. Sit to stand Comments transfers CGA with bed elevated. Gait training with RW CGA for 45 feet with smaller strides being noted. Cues with turning for safety and cues when returning to EOB. Pt needs Mod A with LES when returning to supine Total Therapy 17 Minutes Total Physical 1 Therapy Units Daily Note Summary Pt continues to have significant R LE weakness needing AA-PROM with exs. Fatigued with short distance gait. Needs Mod A with transfers in and out of bed. Pt will benefit from SNF stay to improve strength and mobility.
--- NOTE | 2025-04-06 11:47 | SWNOTE1 ---
Pt is ready for discharge to [facility]. [facility] does not have transportation available so we called [facility], and they can picking table worker between 1:30 and 2:00. Faxed over dc med rec and dc summary to [facility]. SW notified nursing and [facility] of pickup time. SW completed HENS online.
[2025-04-06 11:48] VITALS: O2SAT 96
--- NOTE | 2025-04-06 13:22 | PC.NURSE ---
report called to Chandrika Myers. Informed that [pt is coming with [facility] due to inability to void
--- NOTE | 2025-04-17 14:53 | CM.NOTE ---
Faxed final urine culture to Dr. Burciaga.
== END 2025-04-06 13:17 ==
LOC: ER 12:49 → MS 14:44
PROVIDERS: Admitting Provider Family Medicine; Emergency Provider Emergency Medicine; PCP Family Medicine; Visit Provider Family Medicine
DX: E86.0 Dehydration (principal); R53.1 Weakness; A04.72 Enterocolitis due to Clostridium difficile, not specified as recurrent; G35 Multiple sclerosis; E43 Unspecified severe protein-calorie malnutrition; I10 Essential (primary) hypertension; D50.9 Iron deficiency anemia, unspecified; F41.1 Generalized anxiety disorder; K21.9 Gastro-esophageal reflux disease without esophagitis; B37.49 Other urogenital candidiasis; M54.50 Low back pain, unspecified; G89.29 Other chronic pain; E61.2 Magnesium deficiency; T83.518A Infection and inflammatory reaction due to other urinary catheter, initial encounter; N32.0 Bladder-neck obstruction; R10.31 Right lower quadrant pain; R00.0 Tachycardia, unspecified; R73.9 Hyperglycemia, unspecified; K62.89 Other specified diseases of anus and rectum; Z90.710 Acquired absence of both cervix and uterus; Z68.1 Body mass index [BMI] 19.9 or less, adult
CPT/HCPCS: 36415; 36600; 51702; 74177; 80048; 80053; 80076; 81001; 82800; 82805; 83605; 83735; 83880; 84484; 85007; 85025; 85027; 87086; 87106; 93005; 94761; 96361; 96365; 96366; 96367; 96368; 96375; 97163; 97165; 97530; 99285; G0378; J1836; J3475; Q9966; Q9967

== ENCOUNTER 2025-04-14 00:43 | Emergency (ER) | payer MEDICARE, MEDICAID, SELFPAY ==
--- OUTSIDE RECORDS SUMMARY | 2025-04-04 07:14 | XMS_ITS ---
Author Organization The [facility] in [place] Address [address] [place] [address] Care Team Providers Care Tag Marker Name Role Phone J Carlos Burciaga Primary Care Provider REASON FOR VISIT ER Encounters Encounter Location Date Provider Diagnosis [facility] [address] [place] [address] 04/04/2025 J Carlos Burciaga Plan Of Treatment No Information Progress Notes * Jami WEINBERG EDOB:1970 (55 yo F)Acc No.[id number]:04/04/2025 Patient: Wilfrid JOSEJami :1970 A ge:55 Y S ex:Female Address:[address] [place] [phone] * true * Date: Generated for Murali slaughter/Rajendra/eTransmitting on: 0 04/14/2025 12:55 AM EDT
--- OUTSIDE RECORDS SUMMARY | 2025-04-10 07:15 | XMS_ITS ---
Author Organization [facility] in [place] Address [address] [place] [address] Care Team Providers Care International Flight Attendant Name Role Phone J Carlos Burciaga Primary Care Provider [phone] REASON FOR VISIT TCM [facility] Encounters Encounter Location Date Provider Diagnosis [facility] [address] [place] [address] 04/10/2025 J Carlos Burciaga Plan Of Treatment No Information Progress Notes * Jami WEINBERG EDOB:1970 (55 yo F)Acc No.[id number]:04/10/2025 UNLOCKED PROGRESS NOTE Progress Note Patient: Jami HAMMONDS Provider: Jenny Burciaga MD (TTC) :1970 A ge:55 Y S ex:Female Date:04/10/2025 Address:[address] [place], [place] [id number] Subjective: * Chief Complaints: * 1 . TCM [facility]. * Medical History: Objective: * Vitals: Assessment: Plan: * Treatment: * * Electronic signature of J Carlos Burciaga MD, [id number] on 04/14/2025 at 12:55 AM EDT Sign off status: Pending Visit Status: C ANC (Cancelled) * Provider: Jenny Burciaga MD (TTC) Date: 0 04/10/2025 Generated for Printi ng/Faxing/eTransmitting on: 04/14/2025 12:55 AM EDT
--- OUTSIDE RECORDS SUMMARY | 2025-04-10 17:13 | XMS_ITS ---
Author Organization [facility] in [place] Address [address] [place] [address] Care Team Providers Care Goldsmith Apprentice Name Role Phone J Carlos Burciaga Primary Care Provider [phone] REASON FOR VISIT yeast cx-urine- LAB checking on Encounters Encounter Location Date Provider Diagnosis [facility] [address] [place] [address] 04/10/2025 J Carlos Burciaga Plan Of Treatment No Information Progress Notes * Jami WEINBERG EDOB:1970 (55 yo F)Acc No.[id number]:04/10/2025 UNLOCKED PROGRESS NOTE Patient: Wilfrid Jami JOSE :1970 A ge:55 Y S ex:Female Address:[address] [place] [id number] * * Date:
[2025-04-14 00:52] VITALS: BP 116/88; O2SAT 97; BMI 20.1
--- OUTSIDE RECORDS SUMMARY | 2025-04-14 00:56 | XMS_ITS | CCD ---
Author Organization [facility] Care Team Providers Care Record Press Operator Name Role Phone ELTAHAWY, EHAB A Unavailable [...] Unavailable HOY, DR NICKERSON Primary Care Unavailable Masrhal Dodge Referring Unavailable Marshal Dodge Attending Unavailable Marshal Dodge Admitting Unavailable Krihsan Burciaga MD Primary Care Provider [phone] MARSHAL DODGE Attending Unavailable MARSHAL DODGE Attending Unavailable MARSHAL DODGE Attending Unavailable CARLOS MARTIN Attending Unavailable Krishan Burciaga MD Primary Care Provider [phone] Allergies Allergy Classification Reported Allergen(s) Allergy Type Date of Onset Reaction(s) Facility (1 source) Penicillins Drug allergy (disorder) 06-02-2015 [facility] (2 sources) Sulfonamides (Antibiotic) Drug allergy (disorder) 09-14-2013 [facility] (1 source) hydrALAZINE Drug Allergy 04-15-[address] [facility] (1 source) Penicillin Drug Allergy 09-14-[address] [facility] Repository (13 sources) atorvastatin Drug Allergy 04-30-2023 [facility] (13 sources) hydrALAZINE Drug Allergy 04-16-2022 Unknown [facility] (13 sources) Penicillins Drug Allergy 04-16-2022 Unknown [facility] (13 sources) Sulfonamides (Antibiotic) Drug Allergy 04-30-2023 [facility] Medications Current Medications Medication Drug Class(es) Dates [...] every week cholecalciferol (Vitamin D-3) 1.25 MG (73086 UT) capsule Take 1 capsule by mouth 1 (one) time per week. Active 168 hr cloNIDine 0.43710 mg/hr transdermal system (13 sources) Central alpha-2 [...] Facility PT - Assessmentson PT - Assessments [id number]#1 .00CD:127 Normal [facility] Coding Summary.on 11-18-2022 Coding Summary. CD:[id number] G h0bWw+PGhlYWQ+QL2ZYZW uB66jnEZmnX2QZ0gCVR2B FOIVVEWOOZ6BWJ8ygVV4Z NurV2ZzgrKs XcmukIBqUW53BWs7ZAK1z NncYLzpqI5ylAMjF8f3Pp LpLM20nG82IZiwYOAjLsT 3LjZpbjsgbWFy J5ikXvJteMCyEom+PHRhY mxlIHdpZHRoPScxMDAlJy QmgFrgIR8iKj9iSHSoLNF vbGxhcHNlOiBj j8rjTHPjTLnhAC4kxLuxM 1RudCA3DXTbe6t5Wp83yB I+UEVpVKP5fCvlQJuqd20 5OjKvo5ljQPY2 cGJdWRoxQQO2C78ny6V9Z WDqLOVlKJZ0hVP0tC4aaW ncxfuxM2IokAIaWcI2CNK 8eKBmgD2xfSby nmznyX0gRhe+W40UWP1NP YGHYL6DBpm3M7AlHqxxaK I+HS06CYMsNI80mEQmxKH td0vgpVy0DgOh AADrZCR1aDunFPnsz2PfZ VAfO13awGGxl8D7UXIvjZ qkeIDgTbSbdRC9eS1yKJr ivxcwj4aqkzhe Vycsb6izpz28cF57O86dJ MjgUWVqGCX6JFDiABVbeL wtwr4jrB1yLr7+GIvkk8t tw7hreOy1VbEt ABNnycOybXzmLCV3y1NxQ e15Q7YjuSrng0YzKaf4nm 82vGVjd3V0uNU4QHyvYGA mdI1oKLplGtE6 SZPrOjPekT80vDGnZXpeB y1eeFcyjMgdBT0zMCImsm prLFSqyF7hHPIlkGBmjKr hLE6mLNOtzaht m929ZmCyONU0DCGhqZXcK 1GisF3sQzDfWITvCAAfH0 NbbZYeCHyjN195WEuhUdM 7VKOikaYmC3Ia VEAzxWvhBiL5v4M0Ky3Wo 4AmazhwLEN1SIyeHTXuCi M5XnVpWoT9W6AjByk4ZYZ wmMhyUZ5eU0Yx BJFbhsuawfaoySP7HKXeE PJekY34zJHyBFkvCs2rt8 F8t522BKCwVEXhiD81Db8 udDogMTBwdCBU kB0dpsfpx5hniuajEzDgQ GRwPCx4UEw2DIHwwZzeFx AnCXJ6OkC6SUX7vUDawG0 cbCdshhyltK2x Oyc+Z88rjE9zTTS5OCN7s jgpPDTzkjChJE36FF36F7 RyPjwvdGFibGU+PGRpdiB ehOpeCJ8mMaYl y3lsy7YjBNtxJ1RfBDMaZ IeiKrf5IQBkIJH5wEF3mO 1bLFJsJDjzv4O2dXA2G9R xjiGyvy0sk8gf NXDfJGmkC72dcGNoq8V0Z IRsiQD4SDDojZuuKcHvpY 93Oyc+ABWltKnma1OrCpk hw6mut1xjkUp0 RzQtJPMabfTsuBkbOYY1i 4DiMg94D28dMNpnORBvKO ZyTHOvNUPzpBtpbb2cnS3 wIi8+PGNvbCB3 aKY9pU0nZBQyJqO2EFicL 871ZcDurBAhZhlcy3kbi8 tudOi3NdXpQFWfzvXgmNh bZNB7w8QuQy66 M99oHOchQZBrQAPrYCGrM UYafXmsrr9qpB3fOm2+PC 1rl6zrvg33eA43uBO+PHR lBQD8xFhlWUfi ZFHdqO7qPGxpJbV2PLJaN fNprI95eOFpOShoUt5uuW ljjDtrNA3cJWOuwegwd24 8NxNky4yrCSIa gAJaMMpvGIP8X54ap6R6T HLtNYIvETH4vEK6sI7tmP lnbjogbGVmdDsgdmVydGl xFQshVOpcT385 IHRvcDsnPlBhdGllbnQgT yPuAGb1D1IcVpx1IKNirO xwDM0ogDFbAZyvVd6osKn dbIvrND3pSCZh lwflf633RsYbj8uiCKUqs OImQRmdQTY1B18rk0W0MU FjLKDlPBG2sBU1uN4vsWa nbjogbGVmdDsg cfTblAxnYEmjSZklR082B HRvcDsnPkJpcnRoIERhdG O2LJ99NW51jYOeg4O2kLT 1U3SfDAAqwrxu hqplvZI2XVDyMNIbbO69L r7ohTlaNx1wHPJiGMN0YG PotKIzB7ZdqU5oSzAzTMO bGASyT5EqaXFw TBqlY096CZgpSmJ5LIBqx uIfK9ZmVNQolMxfMgD3y2 C6Wd9TS3Z6DJ42AF81mMO rx2X2uYF0I5Be OMFxwnsseessiHJ9SDYvL GYxwE37It8btNkoPi9dCP FcRVJ5HMAdoBRfA7OvkC1 yOiAjMDAwMDAw Z1MokCMqBHwbO181NVxiE eS3SUJvjqTbS6WgHEFlvY qpMqD5a2Q8Hx0SIAh4VS4 8WL48bLDmw7A1 bXQ1Y7UfPNPqroiehxesk HL0CFIcZTFjsR72Zu3vcJ qkEp5dLUFiMRD5ITSvvJE nW3YpwZ9dPdLi NOIsWVZdY0CpfSUsFHpbQ 597STgsKkL6VBWlliSfH1 XtRLRerVwdWrH0v8Q0Gx8 UPXNvTN43DLX9 pTQ2QS49BR89N9MiZtvgt GFibGU+PHRhYmxlIHdpZH RoPScxMDAlJyBzdHlsZT0 lNc7zSHCtMGSl vPrerKSgOsDbr8csUFEwX RjmWG6zkKmwG9XmoIP8PI Xtv8l0Ya07V70pQ1WjxQR +RUWeyCR6kPN8 vF7dHjSvDlX6XKofO725J pWtwIFbRyrvb2lzm5iqzT s4GpJ3DNWxgyLqtCwuELG 5n3KwPm45S40w IHdpZHRoPSIxNSUiIHZhb Aoizu2awB8jMz1+PGNvbC L6dBU5mU9hSnUbMmZ1VVy eF128EnAdpFUh Vuhpt9yqg8kpcQt4DnWtA NMvbpGbpTsrYCB3y6VcNb 64D6YcpYmdy5CyAjo6os0 5aXFqt5M4wWG5 E1ZvRDZiibindQPmhKrbG D2dZBDfcepwZFJkrA8aHM KcA8d4VjHvZvP3WIwyN6I qskS8DVQklZBq CYiwMIR1K26oe0D0JHMrE RUiNPO1fQG9nS8fvQaqel ogbGVmdDsgdmVydGljYWw aUEguL675HZNc zDwuFGWheR0zDECblABcc JutYJ5nHZVazutdBnUWUK eYLFPQH3VBGxOGGD32BM6 7wXCti6E2yOL4 S9WmCGOipgpsbbuieCH0E SToEPDrqR79tATbAWirFd 6nk6P1w104DTBjVKLnlP4 4Eq5iiYliBQCq oHJFxR7ulmkkp9qwbsrlB oGwOVOhJBw5WFe6SVNzjA adNtEkFPY6HfH3BQD2wRO kkC6asCdfhdlv dJ6fSfj+RRRbJEdcNBj1D TwvdGQ+KDAdKJZ0gSkdSA skNYDooD0jWFWzN7t0BpZ dTkZ8RTdpO0Mt OCOzkgndLc22aD1aAcYvE cD9TMaoT5VrnsQ3UKAabM JiKXudPCE7M39li8K9CWY nKRXyBHU3tUI1 yB0nnByonmlahEEgdCfgg kMdbYeeXUloXBicI800MQ RvcDsnPjUxIFllYXJzPC9 7HT74uRZdk7P7 lFV3F8QnQNDjpfekycmft BL7NZAwMKHraJ75jQWzGJ dqGz0wf4B8w666PUHeGJN dqV90En2kcSjc APUtnNZPvC6xjbnjz3eis togKdEdHKGoAKd0PYj3VM NulQrbFnCoSEP4VgU5RJT 9jNSuuI9bgCzh nnxrgW3xZns+RmVtYWxlP V52XO24zXSdc4P4uAM8M4 LpYIVyppgwohtvaGC1PFY bXOUjpW39bMMt GRrnPw0ov2J3s491XZTdC KInvW26Sa9mpHmlFHQgxA KYvM2aahcua4wevcntPdI wPHCvXJx5GXz1 YOCkfRzaNgEuVEY3NpB7A UF7qXXljW3uoJpvtllpjF 9wOyc+HuXfsFLoeR2cAN7 1ZO87P0NqHkpi dGFibGU+PHRhYmxlIHdpZ HRoPScxMDAlJyBzdHlsZT 1rZz8kZFFlTKPntWpvjAX fItBce9fkKVNl WTjdHX6oxOqmC4WahIN0U JXxc4s4Ox57D40vZ2RxhM A+CUSiaIB2cXV6fW1yZkF bZiH3BPjlS504 EiZbwNInVtlwb3lci9yev Wk2ShHtGWFhjbLfvWkcWM A4w4JjLq67G33bWQwqSWO oPSIyMCUiIHZh jXhedt6ugN7dPc7+PGNvb VV9nPD2kC7gOmEiCeO5UJ jpQ654XtXauTGtMzcgV55 gM2ZhpSD+PHRy Pfd9HTJqmYanJV9msDBjP WpfZx7sRAF9VkKwWnRhWW vlA8VgVJUabwizhtkzkUL 6CTUtIRVysC53 Ue2fzPgvNj7qLLRpRPK2T TYnmBZzN5NxjV4bCyCdCN BcHTEgK4TbmPUtFXnmL51 2BUatOpT9JPEs qyZyV2BzZTOdiDbtKoW8x 0W3Sh3IqVfovNToSN7jMd EwYHi8K3VnAde0YMKwuMk cCU8gtIKdQQtj En2xzPgkgEitAQ5gAVZfs pthm381HqPfe5wxEEZzeB YtFMeoPVX1L24an5I6CPN lEOPqYBK9mLH9 uE9zvKsitbkyrAXhvKvcv wNfuAxqCKmjCPfnS078CE PieYrtHmACYll3U0VeLjh 9GVAouCxySC0n iNKoXPkiAt7vnAjvgTssP B6dZAPztjwur157NxAzb4 tdPZNhmWXnIUxtAHW4U94 in3R1MSCjYQGi AWB1kZZ0gY2bxTnrvsuta GVmdDsgdmVydGljYWwtYW ibE751GSTljOtxBp6XEhp 6X7VrPng6XOTt hFytYJ9smLWpYUybNk8eg RrkrOnmLE9nCJIpmcawx0 89CbHjz2qeYHUyeVPkTGw uAZD8B76oi1V2 QBDrOCBeBNL8cTF7fM1si GlnbjogbGVmdDsgdmVydG gbDKjvKKhkB706VQQrkEq nPlBheWVyOjwv dGQ+UI51od48R1XrWvuqG av3MFZoCKO3gZD0eL5aGB HiPFmdf7U4gLB4Q0ItnuE zoq8hk3knPIWe ZTog (more content not included)... Normal [facility] Insurance Correspondenceon 0 11-18-2022 Insurance Correspondence [id number]# 1.00CD:127 Normal [facility] Consent for Treatmenton 11-02 Consent for Treatment [id number]#1 .00CD:127 Normal [facility] PT - Orderson 11-17-2022 PT - Orders [id number]#1 .00CD:127 Normal [facility] CBC AUTO DIFFon 11-04-2022 BASO # 0.0 103/ul Normal 0.0-0.[address] [facility] Comment on above: Performed By: #### C BC ####[facility] [address] [place] [address]Dr. Linnea Jane Basophils/100 WBC (Bld) 0.3 % Normal 0.2-2.0 [facility] Comment on above: Performed By: #### C BC ####[facility] B[address] [place], [place] [address]Dr. Linnea Jane EO # 0.2 103/ul Normal 0.0-0.7 [facility] Comment on above: Performed By: #### C BC ####[facility] R[address] [place], [place] [address]Dr. Linnea Jane Eosinophils/100 WBC (Bld) 3.3 % Normal 0.9-7.0 [facility] Comment on above: Performed By: #### C BC ####[facility] [address] [place], [place] [address]Dr. Linnea Jane Erythrocyte distribution width (RBC) [Ratio] 13.7 % Normal 11.0-15.0 [facility] Comment on above: Performed By: #### C BC ####[facility] [address] [place], [place] [address]Dr. Linnea Jane Hematocrit (Bld) [Volume fraction] 37.1 % Normal 36.0-48.0 [facility] Comment on above: Performed By: #### C BC ####[facility] Y[address] [place], [place] [address]Dr. Dianebelem Jane Hemoglobin (Bld) [Mass/Vol] 12.2 g/dL Normal 12.0-16.[address] [facility] Comment on above: Performed By: #### C BC ####[facility] [address] [place], [place] [address]Dr. Linnea Jane IG # 0.06 10e3/ul Critically high 0.00-0.03 [facility] Comment on above: Performed By: #### C BC ####[facility] [address] [place], [place] [address]Dr. Linnea Jane IG % 1.0 % Critically high 0.0-0.5 [facility] Comment on above: Performed By: #### C BC ####[facility] Lab[address] [place], [place] [address]Dr. Linnea Jane LYMPH # 0.4 103/ul Critically low 1.2-3.8 [facility] Comment on above: Performed By: #### C BC ####[facility] [address] [place] [address]Dr. Linnea Jane Lymphocytes/100 WBC (Bld) 6.8 % Critically low 20.5-60.0 [facility] Comment on above: Performed By: #### C BC ####[facility] [address] [place], [place] [address]Dr. Linnea Jane MANUAL DIFF REQ NO Normal [facility] Comment on above: Performed By: #### C BC ####[facility] [address] [place] [address]Dr. Linnea Jane MCH (RBC) [Entitic mass] 28.4 pg Normal 26.7-34.[address] [facility] Comment on above: Performed By: #### C BC ####[facility] [address] [place], [place] [address]Dr. Linnea Jane MCHC (RBC) [Mass/Vol] 32.9 g/dL Normal 29.9-35.[address] [facility] Comment on above: Performed By: #### C BC ####[facility] [address] [place], [place] [address]Dr. Linnea Jane MCV (RBC) [Entitic vol] 86.5 fL Normal 81.0-99.[address] [facility] Comment on above: Performed By: #### C BC ####[facility] [address] [place], [place] [address]Dr. Linnea Jane MONO # 0.7 103/ul Normal 0.3-0.[address] [facility] Comment on above: Performed By: #### C BC ####[facility] [address] [place], [place] [address]Dr. Linnea Jane Monocytes/100 WBC (Bld) 11.3 % Normal 1.7-12.[address] [facility] Comment on above: Performed By: #### C BC ####[facility] [address] [place], [place] [address]Dr. Linnea Jane NEUT # 4.5 103/ul Normal 1.4-6.[address] [facility] Comment on above: Performed By: #### C BC ####[facility] [address] [place] [address]Dr. Linnea Buck Neutrophils/100 WBC (Bld) 77.3 % Critically high 43.0-75.0 [facility] Comment on above: Performed By: #### C BC ####[facility] [address] [place] [id number]. Dianebelem Buck Platelet mean volume (Bld) [Entitic vol] 9.0 fL Critically low 9.5-13.5 [facility] Comment on above: Performed By: #### C BC ####[facility] [address] [place] [address]Dr. Linnea Jane PLT 429 103/ul Normal 150-[address] [facility] Comment on above: Performed By: #### C BC ####[facility] [address] [place] [id number]. Linnea Jane RBC 4.29 106/ul Normal 4.20-5.[address] [facility] Comment on above: Performed By: #### C BC ####[facility] [address] [place] [id number]. Linnea Jane WBC 5.8 103/ul Normal 4.0-11.[address] [facility] Comment on above: Performed By: #### C BC ####[facility] [address] [place] [id number]. Linnea Jane FREE T3on 11-04-2022 FREE T3 2.58 pg/mlL Normal 2.18-3.98 [facility] Comment on above: Performed By: #### C MP, FT3, LIPID, T4, TSH #### [facility] [address] [place], [place] [address] Dr. Linnea Jane GLYCOHEMOGLOBIN A1Con 2022 ADA RECOMMENDATION SEE BELOW Normal [facility] Comment on above: Result Comment: ADA RECOMMENDED LIMIT 4.0 - 6.0 ADA THERAPEUTIC TARGET < 7.0 ACTION SUGGESTED > 7.0 Performed By: #### A 1C #### [facility] [address] [place] [address] [address] Linnea Jane Glucose [Mass/Vol] 151 mg/dL Normal [facility] Comment on above: Performed By: #### A 1C #### [facility] [address] [place] [address] [address] Linnea Jane HbA1c (Bld) [Mass fraction] 6.9 % Critically high 4.5-6.2 [facility] Comment on above: Performed By: #### A 1C #### [facility] [address] [place] [address] Dr. Linnea Jane LIPID PROFILEon 11-04-2022 CHOL-HDL RATIO NORM SEE BELOW Normal [facility] Comment on above: Result Comment: 3.3 - 4.4 LOW RISK 4.4 - 7.1 AVERAGE RISK 7.1 - 11.0 MODERATE RISK >11.0 HIGH RISK Performed By: #### C MP, FT3, LIPID, T4, TSH #### [facility] [address] [place] [address] [address] Linnea Jane Cholesterol [Mass/Vol] 174 mg/dL Normal <=200 [facility] Comment on above: Performed By: #### C MP, FT3, LIPID, T4, TSH #### [facility] [address] [place] [address] Dr. Linnea Jane Cholesterol in HDL [Mass/Vol] 74 mg/dL Critically high 40-60 [facility] Comment on above: Performed By: #### C MP, FT3, LIPID, T4, TSH #### [facility] [address] [place] [address] Dr. Linnea Jane Cholesterol in LDL [Mass/Vol] 82.2 mg/dL Normal [facility] Comment on above: Performed By: #### C MP, FT3, LIPID, T4, TSH #### [facility] [address] [place] [address] Dr. Linnea Jane Cholesterol.total/Cho lesterol in HDL [Mass ratio] 2.4 {ratio} Normal [facility] Comment on above: Performed By: #### C MP, FT3, LIPID, T4, TSH #### [facility] [address] [place] [address] [address] Linnea Jane HDL NORMAL > or = 60 mg/dl - LO W CARDIOVASCULAR RISK <40 mg/dl - HIGH CARDIOVASCULAR RISK Normal [facility] Comment on above: Performed By: #### C MP, FT3, LIPID, T4, TSH #### [facility] [address] [place] [address] [address] Linnea Jane LDL CALC NORMAL SEE BELOW Normal [facility] Comment on above: Result Comment: <100 mg/dl OPTIMAL 100 - 129 mg/dl NEAR OR ABOVE OPTIMAL 130 - 159 mg/dl BORDERLINE HIGH 160 - 189 mg/dl HIGH >190 mg/dl VERY HIGH Performed By: #### C MP, FT3, LIPID, T4, TSH #### [facility] [address] [place] [address] [address] Linnea Jane Triglyceride [Mass/Vol] 89 mg/dL Normal <=150 [facility] Comment on above: Performed By: #### C MP, FT3, LIPID, T4, TSH #### [facility] [address] [place] [address] [address] Lninea Jane VLDL CALC 17.8 mg/dL Normal [facility] Comment on above: Performed By: #### C MP, FT3, LIPID, T4, TSH #### [facility] [address] [place] [address] [address] Linnea Jane PROF 14(COMP METB)on 023 Albumin [Mass/Vol] 3.2 g/dL Critically low 3.4-5.0 [facility] Comment on above: Performed By: #### C MP, FT3, LIPID, T4, TSH #### [facility] [address] [place] [address] [address] Linnea Jane Albumin/Globulin [Mass ratio] 1.0 {ratio} Normal [facility] Comment on above: Performed By: #### C MP, FT3, LIPID, T4, TSH #### [facility] [address] [place] [address] [address] Linnea Jane ALP [Catalytic activity/Vol] 77 U/L Normal 46-116 [facility] Comment on above: Performed By: #### C MP, FT3, LIPID, T4, TSH #### [facility] [address] [place] [address] Dr. Linnea Jane ALT [Catalytic activity/Vol] 36 U/L Normal 14-59 [facility] Comment on above: Performed By: #### C MP, FT3, LIPID, T4, TSH #### [facility] [address] [place] [address] Dr. Linnea Jane Anion gap [Moles/Vol] 9.7 mmol/L Normal [facility] Comment on above: Performed By: #### C MP, FT3, LIPID, T4, TSH #### [facility] [address] [place] [address] Dr. Linnea Jane AST [Catalytic activity/Vol] 20 U/L Normal 15-37 [facility] Comment on above: Performed By: #### C MP, FT3, LIPID, T4, TSH #### [facility] [address] [place] [address] Dr. Linnea Jane Bilirubin [Mass/Vol] 0.5 mg/dL Normal 0.2-1.0 [facility] Comment on above: Performed By: #### C MP, FT3, LIPID, T4, TSH #### [facility] [address] [place] [address] Dr. Linnea Jane Calcium [Mass/Vol] 9.3 mg/dL Normal 8.5-10.1 [facility] Comment on above: Performed By: #### C MP, FT3, LIPID, T4, TSH #### [facility] [address] [place] [address] Dr. Linnea Jane Chloride [Moles/Vol] 104 mmol/L Normal 98-[address] [facility] Comment on above: Performed By: #### C MP, FT3, LIPID, T4, TSH #### [facility] [address] [place] [address] Dr. Linnea Jane CO2 [Moles/Vol] 31.7 mmol/L Normal 21.0-32.0 [facility] Comment on above: Performed By: #### C MP, FT3, LIPID, T4, TSH #### [facility] [address] [place] [address] Dr. Linnea Jane Creatinine [Mass/Vol] 0.63 mg/dL Normal 0.55-1.02 [facility] Comment on above: Performed By: #### C MP, FT3, LIPID, T4, TSH #### [facility] [address] [place] [address] Dr. Linnea Jane EGFR-AF [place] >60 Normal >=60 [facility] Comment on above: Performed By: #### C MP, FT3, LIPID, T4, TSH #### [facility] [address] [place] [address] Dr. Linnea Jane EGFR-NON AF [place] >60 Normal >=60 [facility] Comment on above: Performed By: #### C MP, FT3, LIPID, T4, TSH #### [facility] [address] [place] [address] Dr. Linnea Jane Globulin (S) [Mass/Vol] 3.1 g/dL Normal [facility] Comment on above: Performed By: #### C MP, FT3, LIPID, T4, TSH #### [facility] [address] [place] [address] Dr. Linnea Jane Glucose [Mass/Vol] 131 mg/dL Critically high 74-[address] [facility] Comment on above: Performed By: #### C MP, FT3, LIPID, T4, TSH #### [facility] [address] [place] [address] Dr. Linnea Jane Potassium [Moles/Vol] 3.4 mmol/L Critically low 3.5-5.1 [facility] Comment on above: Performed By: #### C MP, FT3, LIPID, T4, TSH #### [facility] [address] [place] [address] Dr. Linnea Jane Protein [Mass/Vol] 6.3 g/dL Critically low 6.4-8.2 [facility] Comment on above: Performed By: #### C MP, FT3, LIPID, T4, TSH #### [facility] [address] [place] [address] Dr. Linnea Jane Sodium [Moles/Vol] 142 mmol/L Normal 136-145 [facility] Comment on above: Performed By: #### C MP, FT3, LIPID, T4, TSH #### [facility] [address] [place] [address] Dr. Linnea Jane Urea nitrogen [Mass/Vol] 22.0 mg/dL Critically high 7.0-18.0 [facility] Comment on above: Performed By: #### C MP, FT3, LIPID, T4, TSH #### [facility] [address] [place] [address] Dr. Linnea Jane Urea nitrogen/Creatinine [Mass ratio] 34.9 mg/mg Normal [facility] Comment on above: Performed By: #### C MP, FT3, LIPID, T4, TSH #### [facility] [address] [place] [address] Dr. Linnea Jane T4on 11-04-2022 T4 [Mass/Vol] 8.50 ug/dL Normal 4.80-13.90 [facility] Comment on above: Performed By: #### C MP, FT3, LIPID, T4, TSH #### [facility] [address] [place] [address] Dr. Linnea Jane TSHon 11-04-2022 TSH 0.590 uIU/mL Normal 0.358-3.740 [facility] Comment on above: Performed By: #### C MP, FT3, LIPID, T4, TSH #### [facility] [address] [place] [address] Dr. Linnea Jane VITAMIN D 25 OHon 11-04-2022 VIT D 25-OH 140.4 ng/mL Normal [facility] Comment on above: Performed By: #### V ITAD #### [facility] [address] [place] [address] Dr. Linnea Jane VIT D RANGES SEE BELOW Normal [facility] Comment on above: Result Comment: <20 ng/mL Vit D deficient 20 - <30 ng/mL Vit D insufficient 30 - 100 ng/mL Vit D sufficient >100 ng/mL Potential Toxicity Performed By: #### V ITAD #### [facility] [address], [place] [address] Dr. Linnea Jane HEPATITIS B CORE, IgMon Hep B Core Ab, IgM Negative Normal Negative [facility] Comment on above: Performed By: #### H EPBCOR #### [facility] [address], [place] [address] Dr. Linnea Jane MRI BRAIN WO W [...] by: NEGRO BLACKMON Date: 2022-09-17 07:22 Normal [facility] XR FOREIGN BODY EYEon 2021 XR FOREIGN BODY EYE EXAMINATION: XR FOREIGN BODY EYE HISTORY: Foreign body in eye ; pre-MRI COMPARISON: No relevant comparison available. FINDINGS: ORBITS: Negative for a metallic foreign body. OTHER: Negative. IMPRESSION: 1. No metallic foreign body within the orbits. Electronically authenticated by: NEGRO BLACKMON Date: 2022-09-16 15:08 Normal [facility] Vital Signs Date Time Vital Sign Value Performing Clinician Faci lity 02-22-2025 14:43-0400 Body height 160 cm Marshal Dodge MD Work Phone: [facility] 02-22-2025 14:43-0400 Body mass index (BMI) [Ratio] 18.6 kg/m2 Marshal Dodge MD Work Phone: [facility] 02-22-2025 14:43-0400 Body weight 47.63 kg Marshal Dodge MD Work Phone: [facility] Encounters Encounter Date Encounter Type Care Provider Facility Start: 04-03-2025 End: 04-03-2025 Telephone encounter Federica Romano [employer] OPERATOR Work Phone: [facility] Start: 03-13-2025 End: 03-13-2025 Refill Federica Romano [employer] OPERATOR Work Phone: [facility] Comment on above: Multiple sclerosis ( CMS/HCC); Acute relapsing multiple sclerosis (CMS/HCC) Start: 02-22-2025 End: 02-22-2025 Office outpatient visit 25 minutes Marshal Dodge MD Work Phone: [facility] Comment on above: Vertigo of central o rigin (Primary Dx); Multiple sclerosis (CMS/HCC); Acute relapsing multiple sclerosis (CMS/HCC) Start: 02-22-2025 End: 02-22-2025 ambulatory MARSHAL DODGE Not Available Start: 02-22-2025 End: 02-22-2025 Bamboo flowsheet Marshal Dodge MD Work Phone: [facility] Start: 02-22-2025 End: 02-22-2025 Bamboo flowsheet Marshal Dodge MD Work Phone: [facility] Start: 12-13-2024 End: 12-14-2024 Telephone encounter Marshal Dodge MD Work Phone: [facility] Start: 11-23-2024 End: 11-23-2024 Office outpatient visit 25 minutes Marshal Dodge MD Work Phone: [facility] Comment on above: Vertigo of central o rigin (Primary Dx); Acute relapsing multiple sclerosis (CMS/HCC) Start: 11-23-2024 End: 11-23-2024 ambulatory MARSHAL DODGE Not Available Start: 11-23-2024 End: 11-23-2024 Bamboo flowsheet Marshal Dodge MD Work Phone: [facility] Start: 11-23-2024 End: 11-23-2024 Bamboo flowsheet Marshal Dodge MD Work Phone: [facility] Start: 11-21-2024 End: 11-21-2024 Refill Dee Farrar LPN [facility] Comment on above: Multiple sclerosis ( CMS/HCC) Start: 09-21-2024 End: 09-22-2024 Refill Marshal Dodge MD Work Phone: [facility] Comment on above: Multiple sclerosis ( CMS/HCC) Start: 08-29-2024 End: 08-29-2024 Orders Only Federica Romano NP Work Phone: [facility] Comment on above: Cerebellar infarctio n (CMS/HCC) (Primary Dx); Other fatigue; Memory loss Start: 07-26-2024 End: 07-26-2024 Refill Marshal Dodge MD Work Phone: [facility] Comment on above: Multiple sclerosis ( CMS/HCC) (Primary Dx) Start: 06-15-2024 End: 06-15-2024 ambulatory CARLOS MARTIN Not Available Start: 05-16-2024 End: 05-16-2024 ambulatory MARSHAL DODGE Not Available Start: 11-17-2022 Encounter for genera l adult medical examination without abnormal findings DR KRISHAN BURCIAGA [facility] Start: 11-17-2022 End: 02-16-2023 ambulatory Marshal [...] Facility :H1 Start: 06-26-2016 End: 06-27-2016 Ambulatory [facility] Plan of Treatment Date Care Activity Detail Author Start: 05-24-2025 End: 05-24-2025 Patient encounter procedure 05/24/2025 11:00 AM EDT Office Visit [facility] [address] [facility] [place] [address] [place] [id number] Marshal Dodge MD [address] [facility] [address] [place] [address] [place] [id number] [facility] Start: 02-22-2025 End: 02-22-2025 Patient encounter procedure [facility] Comment on above: Arrived Start: 11-23-2024 End: 11-23-2024 Patient encounter procedure [facility] Comment on above: Arrived Start: 08-22-2024 End: 08-22-2024 Patient encounter procedure 08/22/2024 2:20 PM EDT Office Visit [facility] [address] [address] Marshal Dodge MD [address] [address] [facility] Start: 07-03-2024 Influenza vaccination Influenza Vacc ine (#1) [facility] Start: 2011 Screening for malign ant neoplasm of breast Mammogram [facility] Start: 2001 Screening for malign ant neoplasm of cervix [facility] Start: 1992 Screening for malign ant neoplasm of cervix Pap Smear [facility] Start: 1971 Screening for malign ant neoplasm of colon [facility] Immunizations Immunization Date Immunization Notes Care Provider Fa josette 08-26-2024 influenza virus vacc ine, unspecified formulation Marshal Dodge MD Work Phone: [facility] 09-03-2022 influenza virus vacc ine, unspecified formulation Marshal Dodge MD Work Phone: [facility] Payers Date Payer Category Payer Medicare (Managed Care) [employer] [id number] 2021 Private Health Insurance [id number] 2019 Medicaid [id number] 1971 Unknown [id number]. 593 1971 Unknown [id number] [id number]. 593 1971 Unknown [id number] [id number]. 593 1971 Unknown [id number] [id number]. 593 1971 Unknown [id number] [id number]. 727 1971 Unknown [id number] [id number]. 1259 1971 Unknown [id number] [id number]. 1259 1971 Unknown [id number] [id number]. 1259 1971 Unknown [id number] [id number]. 1259 1959 Medicaid [id number] 1958 Medicare [id number] 1958 Self-pay Medicare [id number] Social History Date Type Detail Facility Start: 04-30-2023 [facility] Start: 04-30-2023 Tobacco use and exposure Smoke less tobacco non-user [facility] Start: 06-15-2024 Alcoholic beverage intake Life time non-drinker (finding) [facility] Start: 06-15-2024 History of Social function [facility] Start: 06-15-2024 Tobacco use panel [facility] Start: 1970 Sex assigned at Not on file [facility] Medical Equipment Procedure Code Equipment Code [...] ask what she is being hospitalized for. [facility] 04-03-2025 Miscellaneous Notes leaves voicemail that is in hospital and asking if she should be seen sooner. She already does have appointment in May with Dodge is next available unless Yuliya has opening. Please call back and ask what she is being hospitalized for. documented in this encounter [facility] 03-13-2025 Telephone encounter Note Patient calls for Acthar refill. I sent to [facility]? She was asking for call back. [facility] 03-13-2025 Miscellaneous Notes Patient calls for Acthar refill. I sent to [facility]? She was asking for call back. documented in this encounter [facility] 02-22-2025 History of Present illness Narrative Images [...] times daily cholecalciferol (Vitamin D-3) 1.25 MG (08874 UT) capsule 1 capsule, Oral, Weekly cloNIDine [...] in all four extremities, including at least gripper attacher, finger abductors, biceps, triceps, deltoid, toe flexors [...] improve fall risk documented in this encounter [facility] 12-14-2024 Telephone encounter Note Insurance is questioning dose when they run her dose it is over the maximum dose and we need to call them and do an override to approve the dose so they can administer the medication. She is emailing me the verbage they want. [facility] Work Phone: 12-14-2024 Miscellaneous Notes Insurance is questioning dose when they run her dose it is over the maximum dose and we need to call them and do an override to approve the dose so they can administer the medication. She is emailing me the verbage they want. Hans from [facility] left message requesting call back regarding patient. [phone] documented in this encounter [facility] 12-13-2024 Telephone encounter Note Hans from [facility] left message requesting call back regarding patient. [phone] [facility] 11-23-2024 History of Present illness Narrative Images [...] times daily cholecalciferol (Vitamin D-3) 1.25 MG (21257 UT) capsule 1 capsule, Oral, Weekly cloNIDine [...] in all four extremities, including at least gripper attacher, finger abductors, biceps, triceps, deltoid, toe flexors [...] improve fall risk documented in this encounter [facility] 11-21-2024 Telephone encounter Note Patient left additional message requesting status of Ocrevus order. She states she is scheduled for this but insurance is requesting PA status. [facility] 11-21-2024 Miscellaneous Notes Patient left additional message requesting status of Ocrevus order. She states she is scheduled for this but insurance is requesting PA status. Tizanidine refill request sent to provider. Patient requesting 90 day supply to [facility] Last appt documented in this encounter [facility] 11-21-2024 Telephone encounter Note Tizanidine refill request sent to provider. Patient requesting 90 day supply to [facility] Last appt [facility] 08-29-2024 History of Present illness Narrative [facility] memory testing ordered, referral placed and sent to patient to complete. documented in this encounter [facility] 07-26-2024 Telephone encounter Note sent [facility] 07-26-2024 Miscellaneous Notes sent Patient called and [...] Pt verbalized understanding. documented in this encounter [facility] 07-26-2024 Telephone encounter Note Patient called and states that she was trying to get refill of Buspar 7.5mg TID and pharmacy advised rx was cancelled. Please resend to [facility] in [place]. Advised patient per system it was cancelled on 06/15/24 which looks like was done by provider office she seen that day. Advised would get message over to provider for refill to be resent to pharmacy. Pt verbalized understanding. [facility] Evaluation note Diagnosis Cerebellar infarction (CMS/HCC)- Primary Unspecified cerebral artery occlusion with cerebral infarction Other fatigue Memory loss documented in this encounter [facility] note* Diagnosis Multiple sclerosis (CMS/HCC) Multiple sclerosis documented in this encounter [facility]* Diagnosis Multiple sclerosis (CMS/HCC)- Primary Multiple sclerosis documented in this encounter [facility]* Diagnosis Multiple sclerosis (CMS/HCC) Multiple sclerosis documented in this encounter [facility]* Diagnosis Vertigo of central [...] section and content) DATE CREATED AUTHOR 04/28/2018 [facility] DATE CREATED AUTHOR AUTHOR'S ORGANIZ ATION 11/18/2022 [facility] DATE CREATED AUTHOR AUTHOR'S ORGANIZ ATION 02/16/2023 [facility] DATE CREATED AUTHOR AUTHOR'S ORGANIZ ATION 02/23/2025 [facility] EPIC Care Teams (unrecognized sec tion and content) Record Press Operator Relationship Specialty Start Date End Date Krishan Burciaga MD [address] [place] [address] PCP - General Family Medicine 06/15/24 Record Press Operator Relationship Specialty Start Date End Date Krishan Burciaga MD [address] [place] [address] PCP - General Family Medicine 06/15/24 Record Press Operator Relationship Specialty Start Date End Date Krishan Burciaga MD [address] [place] [address] PCP - General Family Medicine 06/15/24 Record Press Operator Relationship Specialty Start Date End Date Krishan Burciaga MD [address] [place] [address] PCP - General Family Medicine 06/15/24 Record Press Operator Relationship Specialty Start Date End Date Krishan Burciaga MD [address] [place] [address] PCP - [facility] 06/15/24 Record Press Operator Relationship Specialty Start Date End Date Krishan Burciaga MD [address] [place] [address] PCP - General Family [facility] 06/15/24 Record Press Operator Relationship Specialty Start Date End Date Krishan Burciaga MD PCP - General Family [facility] 06/15/24 Record Press Operator Relationship Specialty Start Date End Date Krishan [...] BE BASED ON THE PRIMARY CLINICAL RECORDS. [facility]. provides no warranty or guarantee of the accuracy or completeness of information in this document.
--- NOTE | 2025-04-14 01:05 | ECG_ITS ---
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 Measurements Intervals [place] Rate: 113 P: 61 NE: 144 QRS: 48 QRSD: 86 T: 62 QT: 324 QTc: 391 Interpretive Statements 1120 Sinus tachycardia 9140 abnormal rhythm ECG Compared to ECG 04/04/2025 11:19:24 No significant changes Electronically Signed On 04-14-2025 6:23:40 EDT by MOISE MCNULTY M.D.
--- NOTE | 2025-04-14 01:08 | ED.GENADUL1 ---
HPI HPI - General Adult General Chief complaint: Weakness Stated complaint: WEAKNESS Time Seen by Provider: 04/14/25 00:48 Source: patient Mode of arrival: ambulance History of Present Illness HPI narrative: This 55-year-old female is brought to the emergency department from the [facility] where she is currently receiving care after being transferred there for rehabilitation after being admitted several times for sepsis and C. difficile. The patient had a Lafleur catheter placed and subsequently had bladder outlet obstruction and the catheter was left in place at the time of her discharge. She was brought to the emergency department this morning for evaluation of blood in her Lafleur catheter tubing and tachycardia. According to the nurses report from the rehab facility the patient's pulse was in the 150s. She was given a dose of metoprolol and the pulse came down into the 120s. Upon arrival she is awake alert. Answering questions appropriately. She denies any significant pain except in her buttocks where she has a sacral decubitus ulcer. She does have dark blood in her Lafleur catheter tubing. She denies any chest pain or shortness of breath. She states she is having ongoing diarrhea. She has minimal abdominal pain at this time. She denies any nausea or vomiting. Related Data Home Medications ?Medication ?Instructions ?Recorded ?Confirmed buspirone 7.5 mg tablet 7.5 mg PO TID 03/22/24 04/14/25 potassium chloride 10 mEq 20 meq PO BID 03/22/24 04/14/25 tablet,extended release tizanidine 4 mg tablet 8 mg PO TID PRN muscle spasticity 03/22/24 04/14/25 fesoterodine 8 mg tablet,extended 8 mg PO QDAY 03/31/25 04/14/25 release 24 hr Lactobacillus acidoph-L.bulgaricus 1 tab PO BID 04/04/25 04/14/25 1 million cell tablet (Floranex) atorvastatin 20 mg tablet 20 mg PO QPM 04/14/25 04/14/25 Previous Rx's ?Medication ?Instructions ?Recorded clonidine 0.1 mg/24 hr weekly 1 patch transdermal QWEEK #4 ea 04/03/25 transdermal patch magnesium oxide 400 mg (241.3 mg 400 mg PO BID #60 tabs 04/03/25 magnesium) tablet pantoprazole 40 mg tablet,delayed 40 mg PO ACB #30 tabs 04/03/25 release vancomycin 250 mg capsule 250 mg PO QID 10 days #40 caps 04/03/25 amino acids-protein hydrolysate 15 1 ea PO BID #2,880 mL 04/06/25 gram-100 kcal/30 mL oral liquid pkt (Pro-Stat Sugar Free) metoprolol tartrate 50 mg tablet 50 mg PO BID #60 tabs 04/06/25 Allergies Allergy/AdvReac Type Severity Reaction Status Date / Time Penicillins Allergy Severe Rash Verified 04/14/25 01:00 Sulfa (Sulfonamide Allergy Severe Hives Verified 04/14/25 01:00 Antibiotics) Opioid HPI Opioid Management Most Recent Opioid Data: Last Pain Scale 5 04/05/25, 08:01 Last Pain Intensity 2 03/31/25, 11:38 Last MAR Pain Assessment Today, 02:25 Last ORT Total Score 0 04/04/25, 14:09 Last ORT Risk Category Low Risk 04/04/25, 14:09 Ur Phencyclidine Scrn, (NEGATIVE) Negative 03/30/25, 14:51 Review of Systems ROS Status of ROS 10 or more systems reviewed and unremarkable except as noted in history and below [facility] Medical History (Updated 04/14/25 @ 06:27 by Gretel Vaughn MD) Acute renal failure ?N17.9 - Acute kidney failure, unspecified (ICD-10) Elevated liver enzymes ?R74.8 - Abnormal levels of other serum enzymes (ICD-10) Hypokalemia ?E87.6 - Hypokalemia (ICD-10) Acute non-ST elevation myocardial infarction (NSTEMI) ?I21.4 - Non-ST elevation (NSTEMI) myocardial infarction (ICD-10) Severe protein-calorie malnutrition ?E43 - Unspecified severe protein-calorie malnutrition (ICD-10) Diabetes mellitus ?E11.9 - Type 2 diabetes mellitus without complications (ICD-10) Pressure ulcer of coccygeal region ?L89.159 - Pressure ulcer of sacral region, unspecified stage (ICD-10) Leukocytosis ?D72.829 - Elevated white blood cell count, unspecified (ICD-10) Acute urinary retention ?R33.8 - Other retention of urine (ICD-10) Elevated blood sugar ?R73.9 - Hyperglycemia, unspecified (ICD-10) Hematuria ?R31.9 - Hematuria, unspecified (ICD-10) IAN (acute kidney injury) ?N17.9 - Acute kidney failure, unspecified (ICD-10) Leukocytosis ?D72.829 - Elevated white blood cell count, unspecified (ICD-10) Colitis ?K52.9 - Noninfective gastroenteritis and colitis, unspecified (ICD-10) Cellulitis ?L03.90 - Cellulitis, unspecified (ICD-10) Encounter for cholecystectomy ?Z76.89 - Persons encountering health services in other specified circumstances (ICD-10) Multiple sclerosis ?G35 - Multiple sclerosis (ICD-10) HTN (hypertension) ?I10 - Essential (primary) hypertension (ICD-10) Surgical History H/O hysterectomy for benign disease ?Z90.710 - Acquired absence of both cervix and uterus (ICD-10) Social History (Updated 04/04/25 @ 15:40 by Leah Lees RN) Within the past year, how often did you have a drink containing alcohol: never Score interpretation: A score less than 3 is consistent with normal alcohol consumption. Smoking status: Never smoker Non-prescribed substance use: denies use Previous occupational history: disabled Known occupational exposures/hazards: No Highest level of school completed/degree received: some college, no degree Are you now , , , , never or living with a partner: Little interest or pleasure in doing things: not at all Feeling down, depressed, or hopeless: not at all Feel stressed/tense/nervous/anxious/difficulty sleeping: to some extent Due to disability, difficulty making decisions: No Do you think of yourself as: straight/heterosexual Gender Identity: female Exam Narrative Exam Narrative: Vital signs and Nursing Notes reviewed: General: Alert, nontoxic, extremely thin, ill-appearing female, no respiratory distress HEENT: Normocephalic atraumatic, mucous membranes are moist and pink, eyes are clear, normal conjunctiva, vision is grossly intact, posterior pharynx is normal in appearance. Neck: Supple, no meningeal signs, no anterior or posterior cervical lymphadenopathy Chest: Lungs are clear to auscultation with good air entry, there is no wheezing rhonchi or rales appreciated no accessory muscle use, patient is speaking in complete sentences-no chest wall tenderness to palpation CVS: Regular rate and rhythm S1-S2, tachycardic at 115-120 upon arrival no murmurs rubs or gallops, pulses are brisk and equal bilaterally ABD: Soft, nondistended, nontender, no rebound guarding or rigidity, bowel sounds are normal, no pulsatile masses appreciated, stage II-III decubitus ulcer noted on the sacral base with large amount of stool in the patient's depends, stool is dark in color but not liquid : Lafleur catheter in place with blood in the tubing Extremities: Moving all extremities, no lower extremity tenderness or swelling noted, diffuse muscle wasting noted Skin: Normal in appearance without rash,pallor, petechiae or purpura Neuro: No focal deficits Constitutional Vital Signs, click to edit/add: Last Vital Signs Resp 16 04/14/25 00:52 BP 116/88 04/14/25 00:52 Pulse Ox 97 04/14/25 00:52 O2 Del Method Room Air 04/14/25 00:52 Course Vital Signs Vital signs: Vital Signs Respiratory Rate 16 04/14/25 00:52 Blood Pressure 116/88 04/14/25 00:52 Pulse Oximetry 97 04/14/25 00:52 Oxygen Delivery Method Room Air 04/14/25 00:52 Respiratory Rate 16 04/14/25 00:52 Blood Pressure 116/88 04/14/25 00:52 Pulse Oximetry 97 04/14/25 00:52 Oxygen Delivery Method Room Air 04/14/25 00:52 Medical Decision Making MDM Narrative Medical decision making narrative: This 55-year-old female was sent to the emergency department for evaluation of tachycardia and hematuria. The patient is currently in rehab after being admitted several times for C. difficile, dehydration and sepsis. The patient states that her urine started becoming bloody today. According to the records I was able to obtain the patient had bladder outlet obstruction so a Lafleur catheter was placed and has been in place since that time. The patient has been having ongoing diarrhea and has developed a stage II decubitus ulcer on her sacrum. Her pulse was in the 150s according to the [facility] report to the nursing staff. She had been given metoprolol and her pulse was in the 120s upon arrival. She was warm to the touch but had a normal rectal temperature. She is awake alert. She is extremely thin. Her abdomen is nondistended and tender. Her lungs are clear. The Lafleur catheter was draining shahab blood. She was placed on the monitor and storage bin tender. EKG is a sinus tachycardia at 113 bpm. Septic workup was ordered. She has normal white count of 10.9 and stable hemoglobin of 12.8. Platelet count is elevated at 634. Sodium is normal at 142 with a normal potassium of 4.3. Chloride is 102. CO2 is on the high side at 35. BUN is normal at 16 and creatinine is normal at 0.63. Glucose is 153. Calcium is normal at 9.9. Alk phos is elevated at 214 but the remainder of her liver function tests are normal. Troponin is normal at 17. Lactic acid is normal at 1.5. 2 sets of blood cultures were ordered and are pending. Urinalysis shows large blood She was medicated with 30 cc/kg of IV fluids, given Tylenol and IV Rocephin. She is currently receiving treatment for C. difficile. Stool was sent to the lab for C. difficile testing and it was rejected because it was too formed and not thought to be sent with C. difficile. Has been on the monitor and storage bin tender for 5 and half hours in the emergency department. Her pulses come down into the 90s. She has remained hemodynamically stable. She has had multiple episodes of soft stool. Calmoseptine was ordered and was placed onto the decubitus ulcer on her buttocks. The case was discussed with Dr. Burciaga at 6:30 AM who has been managing this patient and feels comfortable having her return to the [facility] care facility at this time. He was aware of her hematuria and was concerned that she may be coming anemic but her hemoglobin is stable. Her hematuria has cleared somewhat after the IV fluids. Medical Records Medical records reviewed: Yes I reviewed the patient's medical records Lab Data Lab results reviewed: Yes I reviewed the patient's lab results Labs: Lab Results 04/14/25 04/14/25 04/14/25 Range/Units 00:40 01:25 01:43 WBC 10.9 (4.0-11.0) 10^3/uL RBC 4.37 (4.20-5.40) 10^6/uL Hgb 12.8 (12.0-16.0) g/dL Hct 38.9 (36.0-48.0) % MCV 89.0 (81.0-99.0) fL MCH 29.3 (26.7-34.0) pg MCHC 32.9 (29.9-35.2) g/dL RDW 14.9 (11.0-15.0) % Plt Count 634 H (150-450) 10^3/uL MPV 9.0 L (9.5-13.5) fL Neut % (Auto) 77.4 H (43.0-75.0) % Lymph % (Auto) 7.7 L (20.5-60.0) % [place] % (Auto) 11.4 (1.7-12.0) % Eos % (Auto) 2.0 (0.9-7.0) % Baso % (Auto) 0.5 (0.2-2.0) % Neut # (Auto) 8.4 H (1.4-6.5) 10^3/uL Lymph # (Auto) 0.8 L (1.2-3.8) 10^3/uL [place] # (Auto) 1.2 H (0.3-0.8) 10^3/uL Eos # (Auto) 0.2 (0.0-0.7) 10^3/uL Baso # (Auto) 0.1 (0.0-0.1) 10^3/uL Abs Immat Gran (auto) 0.11 H (0.00-0.03) 10^3/uL Imm/Tot Granulo (auto) 1.0 H (0.0-0.5) % Sodium 142 (136-145) mmol/L Potassium 4.3 (3.5-5.1) mmol/L Chloride 102 (98-107) mmol/L Carbon Dioxide 35.0 H (21.0-32.0) mmol/L Anion Gap 9.3 BUN 16.0 (7.0-18.0) mg/dL Creatinine 0.63 (0.55-1.02) mg/dL Est GFR ( Amer) >60 (>=60 mL/min/1.73m^2) Est GFR (Non-Af Amer) >60 (>=60 mL/min/1.73m^2) BUN/Creatinine Ratio 25.4 Glucose 153 H (74-106) mg/dL Lactate 1.3 (0.4-2.0) mmol/L Calcium 9.9 (8.5-10.1) mg/dL Total Bilirubin 0.4 (0.2-1.0) mg/dL AST 21 (15-37) U/L ALT 30 (14-59) U/L Alkaline Phosphatase 214 H (46-116) U/L Troponin I High Sens 17.7 (4.0-51.3) pg/mL Total Protein 6.0 L (6.4-8.2) g/dL Albumin 2.3 L (3.4-5.0) g/dL Globulin 3.7 g/dL Albumin/Globulin Ratio 0.6 Urine Color Red A (YELLOW) Urine Clarity Turbid A (CLEAR) Urine pH Color interference A (5.0-9.0) Ur Specific Mckenna 1.015 (1.005-1.025) Urine Protein Color interference A (NEG/TRACE) mg/dL Urine Glucose (UA) Color interference A (NEGATIVE) mg/dL Urine Ketones Color interference A (NEGATIVE) mg/dL Urine Occult Blood Color interference A (NEGATIVE) Urine Nitrite Color interference A (NEGATIVE) Urine Bilirubin Color interference A (NEGATIVE) Urine Urobilinogen Color interference A (0.2-1.0) EU/dL Ur Leukocyte Esterase Color interference A (NEGATIVE) Urine RBC >100 A (0-2) #/HPF Urine WBC 2-5 A (NONE SEEN) #/HPF Ur Squamous Epith Cells Rare (NONE/RARE) #/LPF Urine Crystals None seen (None Seen) #/HPF Urine Bacteria None seen (NONE SEEN) #/HPF Urine Casts None seen (NONE SEEN) #/LPF Urine Mucus None seen (NONE SEEN) Ur Culture Indicated? No ECG Data Attestation: I personally reviewed and interpreted this ECG as follows: (Sinus tachycardia at 113 bpm, normal axis, nonspecific ST changes, no acute ST segment elevation or T wave inversion) Discharge Plan Discharge Chief Complaint: Weakness Clinical Impression: Generalized weakness, Hematuria, Sinus tachycardia, Sacral decubitus ulcer, stage II Patient Disposition: Home, Self-Care Time of Disposition Decision: 06:26 Condition: Good Prescriptions / Home Meds: No Action fesoterodine 8 mg tablet extended release 24 hr 8 mg PO QDAY clonidine 0.1 mg/24 hr Patch Weekly 1 patch transdermal QWEEK Qty: 4 11RF magnesium oxide 400 mg (241.3 mg magnesium) Tablet 400 mg PO BID Qty: 60 11RF pantoprazole 40 mg Tablet,Delayed Release (Dr/Ec) 40 mg PO ACB Qty: 30 11RF vancomycin 250 mg capsule 250 mg PO QID 10 Days Qty: 40 0RF Patient Comments: 04/03/25-04/12/25 buspirone 7.5 mg tablet 7.5 mg PO TID potassium chloride 10 mEq tablet extended release 20 meq PO BID tizanidine 4 mg tablet 8 mg PO TID PRN (Reason: muscle spasticity) Lactobacillus acidoph-L.bulgar [Floranex] 1 million cell tablet 1 tab PO BID metoprolol tartrate 50 mg Tablet 50 mg PO BID Qty: 60 11RF Pro-Stat Sugar Free 15 gram- 100 kcal/30 mL Liquid In Packet 1 ea PO BID Qty: 2880 11RF atorvastatin 20 mg tablet 20 mg PO QPM Print Language: Burmese Instructions: Hematuria (ED), Weakness (ED), Tachycardia (ED) Referrals: Chava Burciaga MD [Primary Care Provider, Family Practice] - 1 week
[2025-04-14 01:12] LABS: Basophils Absolute Auto 0.1 10^3/uL (0.0-0.1); Basophils Percent Auto 0.5 % (0.2-2.0); Eosinophils Absolute Auto 0.2 10^3/uL (0.0-0.7); Hematocrit 38.9 % (36.0-48.0); Hemoglobin 12.8 g/dL (12.0-16.0); Immature Granulocytes Abs Auto 0.11 10^3/uL (0.00-0.03); Lymphocytes Absolute Auto 0.8 10^3/uL (1.2-3.8); Lymphocytes Percent Auto 7.7 % (20.5-60.0); Mean Corpuscular HGB Conc 32.9 g/dL (29.9-35.2); Mean Corpuscular Hemoglobin 29.3 pg (26.7-34.0); Monocytes Absolute Auto 1.2 10^3/uL (0.3-0.8); Monocytes Percent Auto 11.4 % (1.7-12.0); Neutrophils Absolute Auto 8.4 10^3/uL (1.4-6.5); Neutrophils Percent Auto 77.4 % (43.0-75.0); Platelet Count 634 10^3/uL (150-450); Red Blood Count 4.37 10^6/uL (4.20-5.40); Red Cell Distribution Width 14.9 % (11.0-15.0); White Blood Count 10.9 10^3/uL (4.0-11.0)
[2025-04-14 01:28] LABS: Alanine Aminotransferase 30 U/L (14-59); Albumin Globulin Ratio 0.6; Albumin Level 2.3 g/dL (3.4-5.0); Alkaline Phosphatase 214 U/L (46-116); Anion Gap 9.3; Aspartate Amino Transferase 21 U/L (15-37); BUN Creatinine Ratio 25.4; Bilirubin Total 0.4 mg/dL (0.2-1.0); Calcium 9.9 mg/dL (8.5-10.1); Chloride 102 mmol/L (98-107); Estimated GFR (African America >60 (>=60 mL/min/1.73m^2); Estimated GFR (Non-African Ame >60 (>=60 mL/min/1.73m^2); Globulin 3.7 g/dL; Glucose 153 mg/dL (74-106); Potassium 4.3 mmol/L (3.5-5.1); Sodium 142 mmol/L (136-145); Troponin I High Sensitivity 17.7 pg/mL (4.0-51.3)
[2025-04-14 01:57] LABS: Color Urine RED (YELLOW); Specific Gravity Urine 1.015 (1.005-1.025)
[2025-04-14 02:09] LABS: Lactate/Lactic Acid 1.3 mmol/L (0.4-2.0)
[2025-04-14 02:23] LABS: Bilirubin Urine COLOR INTERFERENCE (NEGATIVE); Blood Urine COLOR INTERFERENCE (NEGATIVE); Clarity Urine TURBID (CLEAR); Glucose Urine UA COLOR INTERFERENCE mg/dL (NEGATIVE); Ketones Urine COLOR INTERFERENCE mg/dL (NEGATIVE); Leukocyte Esterase Urine COLOR INTERFERENCE (NEGATIVE); Nitrite Urine COLOR INTERFERENCE (NEGATIVE); Protein Urine COLOR INTERFERENCE mg/dL (NEG/TRACE); Urobilinogen Urine COLOR INTERFERENCE EU/dL (0.2-1.0); pH Urine COLOR INTERFERENCE (5.0-9.0)
[2025-04-14] MEDS: 0.9 % SODIUM CHLORIDE 1,500 ML 501 ML IV (02:23)
[2025-04-14 02:24] LABS: Bacteria Urine NONE SEEN #/HPF (NONE SEEN); Cast Seen? NONE SEEN #/LPF (NONE SEEN); Crystals Seen? None Seen #/HPF (None Seen); Mucus Urine NONE SEEN (NONE SEEN); RBC Urine >100 #/HPF (0-2); Squamous Epithelial Cell Urine RARE #/LPF (NONE/RARE); Urine Culture Indicated NO
[2025-04-14] MEDS: CEFTRIAXONE 1,000 MG in 0.9 % SODIUM CHLORIDE 50 ML 100 MG IV (02:24)
[2025-04-14] MEDS: ACETAMINOPHEN 325 MG TABLET 650 MG PO (02:25)
[2025-04-14] MEDS: ZINC OXIDE 30% CREAM 113.4 GM TUBE 1 APPLIC TOPICAL (03:09)
--- NOTE | 2025-04-14 03:34 | PC.NURSE ---
Lab state that they cannot run the specimen advertising copywriter sent for c-diff citing, It's not loose enough . aware.
--- NOTE | 2025-04-14 04:07 | PC.NURSE ---
Noted that pt is on PO Vanco for cdiff until 04/15. Pt incontinent of loose brown stool. Pinxsav applied after area cleansed.
--- NOTE | 2025-04-14 05:25 | PC.NURSE ---
[facility] and [facility] contacted --they gave a similar ETA of [phone].
[2025-04-14 08:25] VITALS: BP 162/94; PULSE 105; O2SAT 98
[2025-04-15 05:57] LABS: A. calcoaceticus-baumannii Cpx NOT DETECTED (NOT DETECTE); Bacteroides fragilis NOT DETECTED (NOT DETECTE); Candida albicans NOT DETECTED (NOT DETECTE); Candida auris NOT DETECTED (NOT DETECTE); Candida glabrata NOT DETECTED (NOT DETECTE); Candida krusei NOT DETECTED (NOT DETECTE); Candida parapsilosis NOT DETECTED (NOT DETECTE); Candida tropicalis NOT DETECTED (NOT DETECTE); Cryptococcus neoformans/gattii NOT DETECTED (NOT DETECTE); Enterobacter cloacae complex NOT DETECTED (NOT DETECTE); Enterobacterales NOT DETECTED (NOT DETECTE); Enterococcus faecalis NOT DETECTED (NOT DETECTE); Enterococcus faecium NOT DETECTED (NOT DETECTE); Haemophilus influenzae NOT DETECTED (NOT DETECTE); Klebsiella aerogenes NOT DETECTED (NOT DETECTE); Klebsiella pneumoniae group NOT DETECTED (NOT DETECTE); Listeria monocytogenes NOT DETECTED (NOT DETECTE); Neisseria meningitidis NOT DETECTED (NOT DETECTE); Proteus spp. NOT DETECTED (NOT DETECTE); Pseudomonas aeruginosa NOT DETECTED (NOT DETECTE); Salmonella spp. NOT DETECTED (NOT DETECTE); Serratia marcescens NOT DETECTED (NOT DETECTE); Source BLOOD; Staphylococcus epidermidis NOT DETECTED (NOT DETECTE); Staphylococcus lugdunensis NOT DETECTED (NOT DETECTE); Stenotrophomonas maltophilia NOT DETECTED (NOT DETECTE); Streptococcus agalactiae NOT DETECTED (NOT DETECTE); Streptococcus pneumoniae NOT DETECTED (NOT DETECTE); Streptococcus pyogenes NOT DETECTED (NOT DETECTE); Streptococcus spp. NOT DETECTED (NOT DETECTE)
[2025-04-15 05:58] LABS: Staphylococcus spp. DETECTED (NOT DETECTE)
== END 2025-04-14 08:30 | disposition home or self-care (01) ==
PROVIDERS: Emergency Provider Emergency Medicine; PCP Family Medicine
DX: R53.1 Weakness (principal); R31.9 Hematuria, unspecified; R00.0 Tachycardia, unspecified; L89.152 Pressure ulcer of sacral region, stage 2; R19.7 Diarrhea, unspecified
CPT/HCPCS: 36415; 71045; 80053; 81001; 83605; 84484; 85025; 87040; 87150; 87186; 87493; 93005; 96361; 96365; 99285; J0696

== ENCOUNTER 2025-06-13 11:21 | Outpatient (OUT) | payer MEDICARE, MEDICAID, SELFPAY ==
--- OUTSIDE RECORDS SUMMARY | 2025-06-07 06:51 | XMS_ITS ---
Author Organization [facility] in [place] Address [address] [place] [address] Care Team Providers Care Mental Hygienist Name Role Phone Gualberto J Carlos Primary Care Provider Reason For Referral Diagnosis 1 Multiple sclerosis ( G35) Diagnosis 2 Lower extremity weak ness (M62.81) Referral Organization [facility] Referring Provider First Name J Carlos Referring Provider Last Name Gualberto Ref[facility] icine Referred Provider [facility] Referred Provider Specialty [facility] Agency Referral Priority Routine REASON FOR VISIT HH PT Encounters Encounter Location Date Provider Diagnosis [facility] [address] [place] [address] 06/07/2025 J Carlos Burciaga Multiple sclerosis G 35 and Lower extremity weakness M62.81 Assessments Encounter Date Diagnosis (ICD Code) Assessment Notes Treatment Notes Treatment Clinical Notes Section Notes 06/07/2025 Multiple sclerosis (ICD-10 - G35) 06/07/2025 Lower extremity weakness (ICD-10 - M62.81) Plan Of Treatment Referrals Referral Date Details 06/07/2025 06/07/2025, [facility] Progress Notes * Jami WEINBERG EDOB:1970 (55 yo F)Acc No.[id number]:06/07/2025 Patient: Wilfrid Jami JOSE :1970 A ge:55 Y S ex:Female Address:[address] [place] [address] [employer] [facility], [place] [address] Subjective: * Chief Complaints: * H H PT * Medical History: * Surgical History: * Hospitalization/Major Diagno stic Procedure: * Medications: Objective: * Vitals: * Physical Examination: Assessment: * Assessment: 1. M ultiple sclerosis - G35 (Primary) 2 . L ower extremity weakness - M62.81 Plan: * Treatment: 2. L ower extremity weakness Referral To:[facility] Agency Reason: * Procedure Codes: * true * Date: Generated for Murali slaughter/Rajendra/Angelaitting on: 0 06/13/2025 11:25 AM EDT Consultation Request Notes Referral Date Referring Provider Referred Provider Not es 06/07/2025 J Carlos Burciaga [facility], [facility]
--- NOTE | 2025-06-13 | XR_ITS ---
The [address] [address] Patient Name: HERMELINDO WEINBERG MRN: [id number] date: 1970 Sex: F Assigned Patient Location: [facility] Current Patient Location: [facility] Accession/Order Number: [id number] Exam Date: 06/13/2025 12:22 Report Date: 06/13/2025 12:22 At the request of: KRISHAN SANABRIA MD Procedure: XR sacrum coccyx min 2V SACRUM AND COCCYX - - 4 views CLINICAL HISTORY: Tailbone injury S39.92XA COMPARISON: None FINDINGS: Sacral foramina appears intact. SI joints demonstrate degenerative change. No acute bony process involving the sacrum or coccyx. XR/XR sacrum coccyx min 2V IMPRESSION: No acute findings. Impression dictated by: Harsh Coleman Jr., DDanielODaniel 06/13/2025 12:22 PM Dictation Location: [place] [address] Electronically authenticated by: [id number] Y Date: 06/13/2025 12:22
--- OUTSIDE RECORDS SUMMARY | 2025-06-13 06:15 | XMS_ITS ---
Author Organization [facility] in [place] Address [address] [place] [address] Care Team Providers Care Paste Thinner Name Role Phone J Carlos Burciaga Primary Care Provider Allergies Allergen (clinical drug ingredient) Drug/Non Drug Allergy documented on EMR Reaction Allergy Type Onset Date Status Amoxil hives Drug Allergy Active hydralazine hydrALAZINE HCl elevated HR Drug Allergy Active Substance with sulfonamide structure and antibacterial mechanism of action (substance) Sulfa Antibiotics hives Drug Allergy Active REASON FOR VISIT has questions- forgot to ask at last appointment, Has been having more incontinence- wants to see if can get supplies covered, Trouble with tailbone pain, feels like sitting on a rock- thinks she broke it years ago- fell down some stairs then Medications Medication SIG (Take, Route, Frequency, Duration) Notes Start Date End Date Status Metoprolol Tartrate 25 MG 1 tablet with food Orally Twice a day for 30 days 06/01/2025 Active Ondansetron 4 MG 1 tablet on the tong ue and allow to dissolve Orally qid for 5 days 10/07/2024 Active Ocrevus 300 MG/10ML as directed Intravenous 2024 Active Potassium Chloride ER 10 MEQ TAKE ONE TABLET BY MOUTH TWICE A DAY WITH FOOD FOR 30 DAYS for 30 Active Pantoprazole Sodium 40 MG 1 tablet 1/2 t o 1 hour before morning meal Orally Once a day 06/07/2025 Active Meclizine HCl 25 MG 1 tablet as needed O rally once a day PRN Active HYDROcodone-Acetaminophen 5-325 MG 1 tablet as needed Orally every 6 hrs for 7 days PRN 08/25/2024 Active Ferrous Sulfate 325 (65 Fe) MG 1 tablet Orally once daily 06/07/2025 Active Magnesium Oxide 400 MG 1 tablet with ana maria d Orally twice daily 06/07/2025 Active Linzess 72 MCG 1 capsule at least 30 minutes before the first meal of the day on an empty stomach Orally Once a day for 30 days samples 08/23/2024 Active Biotin Active Aspirin Adult Low Dose Active diazePAM 5 MG 1 tablet as needed O rally Once a day PRN 06/07/2025 Active cloNIDine 0.1 MG/24HR 1 patch to skin Transdermal once weekly for 28 days Active busPIRone HCl 7.5 MG 1 tablet Orally TID Active tiZANidine HCl 4 MG 2 talets Orally thre e times daily 06/07/2025 Active Rosuvastatin Calcium 5 MG 1 tablet Oral Q HS for 90 days Active Vitamin D (Cholecalciferol) 50 MCG (2000 UT) 1 capsule Orally Once a day Active Toviaz 8 MG 1 tablet Orally Once a day for 30 days 06/08/2023 Active predniSONE 20 MG 1 tablet with food o r milk Orally Once a day PRN 06/07/2025 Active Social History Tobacco Use: Social History Observation Description Date Details (start date - stop date) Never Smoker NA - NA Tobacco Use/Smoking Question Answer Notes Patient is a nonsmoker Problems Problem Type SNOMED Code ICD Code Onset Dates Problem Status W/U Status Risk Notes Problem Urge incontinence of urine (09686151) Urge incontinence (N39.41) Active confirmed Problem Tailbone injury (S39.92XA) Active confirmed Vital Signs Weight 104.8 lbs 06/13/2025 Height 63 in 06/13/2025 Blood pressure systolic 96 mm Hg 06/13/20 25 Blood pressure diastolic 72 mm Hg 025 BMI 18.56 kg/m2 06/13/2025 Encounters Encounter Location Date Provider Diagnosis [facility] [address] [place] [address] 06/13/2025 J Carlos Hoy Urge incontinence N3 9.41 and Tailbone injury S39.92XA Assessments Encounter Date Diagnosis (ICD Code) Assessment Notes Treatment Notes Treatment Clinical Notes Section Notes 06/13/2025 Urge incontinence (ICD-10 - N39.41) 06/13/2025 Tailbone injury (ICD-10 - S39.92XA) Plan Of Treatment Pending Test Test Name Order Date XR sacrum coccyx min 2V 06/13/2025 Progress Notes * Jami WEINBERG EDOB:1970 (55 yo F)Acc No.[id number]:06/13/2025 UNLOCKED PROGRESS NOTE Progress Note Patient: Jami HAMMONDS Provider: Jenny Burciaga ([facility])MD :1970 A ge:55 Y S ex:Female Date:06/13/2025 Address:[address] [place] [address] [address], [id number] Check In:10:01 AM ESTCheck O ut:10:58 AM EST Subjective: * Chief Complaints: * 1 . Has questions- forgot to ask at last appointment. 2. Has been having more incontinence- wants to see if can get supplies covered. 3. Trouble with tailbone pain, feels like sitting on a rock- thinks she broke it years ago- fell down some stairs then. * HPI: G eneral: has had tailbone pain - for years - needs x-ray also - incontinence more urge incontinence. * ROS: E ENT: hearing changes d enies. v isual changes d enies.?non-healing mouth sores d enies. s wollen glands or neck lumps d enies. h oarseness d enies. s ore throat d enies. d ifficulty swallowing d enies. n ose bleeds d enies. n dana congestion d enies. e ar ache d enies. e ar discharge?denies. r inging in ears d enies. l ight sensitivity d enies. e ye pain d enies. b lurring d enies. e ye irritation d enies. d ouble vision d enies.?vision loss d enies. G eneral/Constitutional: Sweats: D enies. F atigue d enies. S leep problems d enies. A norexia d enies. M alaise d enies. W eight loss d enies.?Fatigue or Weakness d enies. F ever or Chills d enies. C ardiovascular: Shortness of Breath w/lying flat d enies. L ightheadedness/dizziness d enies. C hest tightness/ heavy pressure d enies. S welling of legs, ankles, or feet d enies. W aking up with shortness of breath d enies. C hest pain denies. P alpitations d enies. W eight gain d enies. R espiratory: Chronic or frequent cough d enies. C oughing up blood?denies. D ifficulty breathing d enies. P roductive cough d enies. S noring?denies. S hortness of breath that awakens from sleep (PND) d enies. C hest pain d enies. S putum production d enies. W heezing d enies. M usculoskeletal: Joint pain d enies. J oint Fluid d enies. B ack pain d enies. K nee pain d enies. N dariusz pain d enies. J oint Stiffness d enies. M uscle cramps d enies. W eakness of muscles d enies. A rthritis d enies. M uscle aches d enies. P ain in shoulder(s) d enies. S wollen joints d enies. * Medical History: M ultiple sclerosis, Vitamin D deficiency, Type 2 diabetes mellitus, [place] (myocardial infarction), Osteoarthritis, IBS (irritable bowel syndrome), UTI, Chest pain, Dehydration, Degenerative arthritis of knee, Uterine prolapse, Benign essential HTN, Constipation, Anxiety. * Surgical History: k neee surgery left knee , c section , ovarian cyst ruptured , partial hyst . * Hospitalization/Major Diagno stic Procedure: C ellulitis 2023. * Family History: F ather: . M other: . S ister(s): alive. S on(s): alive. D rico(s): alive. 1 sister(s) . 1 son(s) , 1 daughter(s) . . * Social History: T obacco Use: T obacco Use/Smoking P atient is a n onsmoker * Medications: T aking Aspirin Adult Low Dose , Taking Biotin , Taking busPIRone HCl 7.5 MG Tablet 1 tablet Orally TID , Taking cloNIDine 0.1 MG/24HR Patch Weekly 1 patch to skin Transdermal once weekly , Taking diazePAM 5 MG Tablet 1 tablet as needed Orally Once a day , Notes to Pharmacist: PRN, Taking Ferrous Sulfate 325 (65 Fe) MG Tablet 1 tablet Orally once daily , Taking HYDROcodone-Acetaminophen 5-325 MG Tablet 1 tablet as needed Orally every 6 hrs , Notes to Pharmacist: PRN, Taking Linzess(linaCLOtide) 72 MCG Capsule 1 capsule at least 30 minutes before the first meal of the day on an empty stomach Orally Once a day samples, Taking Magnesium Oxide 400 MG Tablet 1 tablet with food Orally twice daily , Taking Meclizine HCl 25 MG Tablet 1 tablet as needed Orally once a day , Notes to Pharmacist: PRN, Taking Metoprolol Tartrate 25 MG Tablet 1 tablet with food Orally Twice a day , Taking Ocrevus(Ocrelizumab) 300 MG/10ML Solution as directed Intravenous , Taking Ondansetron 4 MG Tablet Disintegrating 1 tablet on the tongue and allow to dissolve Orally qid , Taking Pantoprazole Sodium 40 MG Tablet Delayed Release 1 tablet 1/2 to 1 hour before morning meal Orally Once a day , Taking Potassium Chloride ER 10 MEQ Tablet Extended Release TAKE ONE TABLET BY MOUTH TWICE A DAY WITH FOOD FOR 30 DAYS , Taking predniSONE 20 MG Tablet 1 tablet with food or milk Orally Once a day , Notes to Pharmacist: PRN, Taking Rosuvastatin Calcium 5 MG Tablet 1 tablet Oral Q HS , Taking tiZANidine HCl 4 MG Tablet 2 talets Orally three times daily , Taking Toviaz(Fesoterodine Fumarate ER) 8 MG Tablet Extended Release 24 Hour 1 tablet Orally Once a day , Taking Vitamin D (Cholecalciferol) 50 MCG (1999) Capsule 1 capsule Orally Once a day , Medication List reviewed and reconciled with the patient * Allergies: A moxil: hives - Allergy - Criticality High, Sulfa Antibiotics: hives - Allergy - Criticality High, hydrALAZINE HCl: elevated HR - Allergy - Criticality High. Objective: * Vitals: W t:104.8lbs, Ht: 63 in, BP:96/72mm Hg, BMI:18.56Index, Ht-cm: 160.02 cm, Wt-k.54 kg. * Examination: P hysical Exam: GENERAL: w ell developed, well nourished, in no acute distress. HEAD: n ormocephalic/atraumatic. EYES: p upils equal, round and reactive to light, conjunctivae and sclerae normal. EARS: n o deformity or lesion of external ear, canals and TM appear normal bilaterally, TM's intact, not inflamed with normal light reflex, hearing grossly normal to conversational speech. NOSE: n o deformity, discharge, inflammation, or lesions.? MOUTH: m ucous membranes moist, normal oropharynx and posterior pharynx without lesions or exudates, tongue normal, dentition normal. NECK: n dariusz supple, no masses or palpable cervical nodes, trachea midline, thyroid without nodules, masses, tenderness, or enlargement. CHEST: n o chest wall deformity, no chest wall tenderness.? LUNGS: n ormal respiratory effort and clear to auscultation, no wheezes, rales, or rhonchi, good air exchange. CARDIO: r egular rate and rhythm, normal S1 and S2, nor murmur, rub, or gallop. PULSES: n ormal capillary refill. ABDOMEN: s oft, non-distended, non-tender, no masses. MUSCULOSKELETAL: n o deformity or scoliosis noted, normal range of motion, joints normal, no erythema, edema, effusion, or ecchymosis. EXTREMITY: n o clubbing, cyanosis, edema, or deformity with normal ROM in both upper and lower bilateral extremities. NEUROLOGIC: g rossly normal. SKIN: n o rashes, ulcerations, or suspicious lesions. LYMPH NODES: n o cervical adenopathy, nodes normal. MENTAL STATUS: a lert and oriented x3, normal mood and affect. Assessment: * Assessment: 1. U rge incontinence - N39.41 (Primary) 2 . T ailbone injury - S39.92XA? Plan: * Treatment: * Preventive Medicine: Screenings/Counseling: B [place] ACTION PLAN Below Normal BMI Follow-up D ietary management education, guidance, and counseling * * Electronic signature of J Carlos Burciaga MD, [phone] on 06/13/2025 at 11:25 AM EDT Sign off status: Pending Visit Status: C HK (Check Out) * Provider: Jenny Burciaga ([facility])MD Date: 0 06/13/2025 Generated for Printi ng/Faxing/eTransmitting on: 0 06/13/2025 11:25 AM EDT History and Physical Notes * HPI (History of Present Illness) Category Sub-Category Detail Notes Category Not es General has had tailbone pain - for years - needs x-ray also - incontinence more urge incontinence Examination Category Sub-Category Detail Notes Category Not es Physical Exam GENERAL: well developed, well nourished, in no acute distress HEAD: normocephalic/atraum atic EYES: pupils equal, round and reactive to light, conjunctivae and sclerae normal EARS: no deformity or lesi on of external ear, canals and TM appear normal bilaterally, TM's intact, not inflamed with normal light reflex, hearing grossly normal to conversational speech NOSE: no deformity, discha rge, inflammation, or lesions MOUTH: mucous membranes iris st, normal oropharynx and posterior pharynx without lesions or exudates, tongue normal, dentition normal NECK: neck supple, no mass es or palpable cervical nodes, trachea midline, thyroid without nodules, masses, tenderness, or enlargement CHEST: no chest wall deform ity, no chest wall tenderness LUNGS: normal respiratory e ffort and clear to auscultation, no wheezes, rales, or rhonchi, good air exchange CARDIO: regular rate and rhy thm, normal S1 and S2, nor murmur, rub, or gallop PULSES: normal capillary ref ill ABDOMEN: soft, non-distended, non-tender, no masses RECTAL: MUSCULOSKELETAL: no deformity or scol iosis noted, normal range of motion, joints normal, no erythema, edema, effusion, or ecchymosis EXTREMITY: no clubbing, cyanosi s, edema, or deformity with normal ROM in both upper and lower bilateral extremities NEUROLOGIC: grossly normal SKIN: no rashes, ulceratio ns, or suspicious lesions LYMPH NODES: no cervical adenopat hy, nodes normal MENTAL STATUS: alert and oriented x 3, normal mood and affect
--- OUTSIDE RECORDS SUMMARY | 2025-06-13 06:49 | XMS_ITS ---
Author Organization [facility] in [place] Address [address] [place] [address] Care Team Providers Care Weaving Instructor Name Role Phone J Carlos Burciaga Primary Care Provider [phone] Encounters Encounter Location Date Provider Diagnosis [facility] [address] [place] [address] 06/13/2025 J Carlos Burciaga Plan Of Treatment No Information Progress Notes * Jami WEINBERG EDOB:1970 (55 yo F)Acc No.[id number]:06/13/2025 UNLOCKED PROGRESS NOTE Patient: Wilfrid LANDAVERDEJami PEREZ :1970 A ge:55 Y S ex:Female Address:[address] [place] [id number] * * Date:
--- OUTSIDE RECORDS SUMMARY | 2025-06-13 11:25 | XMS_ITS | Clinical Summary ---
Author Organization [facility] Address [address] [place] [address] Care Team Providers Care Industrial Energy Engineer Name Role Phone Unavailable Primary Care Provider Unavailabl e Allergies Active Allergy Reactions Criticality Noted Date Comments Atorvastatin Unknown 04/30/2023 Other Reaction(s): Myalgias (Muscle Pain) Hydralazine Unknown 04/16/2022 Other Reaction(s): Tachycardia Penicillins Unknown 04/16/2022 Other Reaction(s): Not available Sulfa (Sulfonamide Antibiotics) Unknown 04/30/2023 Medications magnesium oxide (Mag-Ox) 400 mg (241.3 mg magnesium) tablet Take 1 tablet by mouth Twice daily at 6am and 6pm. 04/03/2025 Active atorvastatin (Lipitor) 20 mg tablet Take 20 mg by mouth two times daily. Active cloNIDine (Catapres-TTS) 0.1 mg/[address] 1 patch on the skin 1 (one) time per week. 04/03/2025 Active aspirin 81 mg EC tablet Take 81 mg by mouth in the morning. Active fluconazole (Diflucan) 200 mg tablet Take 100 mg by mouth 1 (one) time. Active vancomycin (Vancocin) 250 mg capsule Take 1 capsule by mouth every 6 (six) hours. 04/03/2025 Active busPIRone (Buspar) 7.5 mg tablet Take 7.5 mg by mouth three times daily. Active fesoterodine 8 mg tablet extended release 24 hr Take 1 tablet by mouth in the morning. 03/21/2025 Active metoprolol tartrate (Lopressor) 50 mg tablet Take 1 tablet by mouth Twice daily at 6am and 6pm. 04/06/2025 Active pantoprazole (ProtoNix) 40 mg EC tablet Take 40 mg by mouth before breakfast. 04/03/2025 Active potassium chloride CR (Klor-Con) 10 mEq ER tablet Take 20 mEq by mouth in the morning and at bedtime. Active tiZANidine (Zanaflex) 4 mg tablet Take 4 mg by mouth every 6 (six) hours if needed. Active Active Problems Problem Noted Date Diagnosed Date Cellulitis 05/16/2024 Anxiety 11/16/2023 Irritable bowel syndrome (IBS) 11/16/2023 Myocardial infarction 11/16/2023 Osteoarthritis of knee 11/16/2023 Type 2 diabetes mellitus 11/16/2023 Vitamin D deficiency 11/16/2023 Vertigo of central origin 08/17/2023 Acute non-ST segment elevation myocardial infarc tion 04/30/2023 Cerebellar infarction 04/30/2023 Hypertensive disorder 04/30/2023 Fatigue 04/16/2022 Myalgia 04/16/2022 Acute relapsing multiple sclerosis 08/15/2021 Dizziness 08/15/2021 Encounters Date Type Department Care Team Description 04/24/2025 10:00 AM EDT Office Visit [address] [id number] Juan Manuel Mcqueen MD Primary hypertension (Primary Dx); Mixed hyperlipidemia; Positive blood culture; Multiple sclerosis (CMS/HCC) from Last 3 Months Family History Medical History Relation Name Comments Heart attack Father Heart failure Mother Cancer Sister Relation Name Status Comments Father Mother Sister Social History Tobacco Use Types Packs/Day Years Used Date Smoking Tobacco: Never Passive Smoke Exposure: Never Smokeless Tobacco: Never Tobacco Cessation:Counseling Given: Not Answered Alcohol Use Standard Drinks/Week Comments Not Currently 0 (1 standard drink = 0.6 oz pur e alcohol) [place] Safety & Environment Answer Date Rec orded Fear of Current or Ex-Partner Not on file Emotionally Abused Not on file 12/24/2023 Physically Abused Not on file 12/24/2023 Sexually Abused Not on file 12/24/2023 Physically or Sexually Abused Not on file Comments Unknown Sex and Gender Information Value Date Recorded Sex Assigned at Not on file Legal Sex Female 11:32 PM EDT Gender Identity Not on file Sexual Orientation Not on file Last Filed Vital Signs Vital Sign Reading Time Taken Comments Blood Pressure 113/84 04/24/2025 10:04 AM EDT Pulse 112 04/24/2025 10:04 AM EDT Temperature - - Respiratory Rate - - Oxygen Saturation 96% 04/24/2025 10:04 AM EDT Inhaled Oxygen Concentration - - Weight 53.5 kg (118 lb) 04/24/2025 10:04 AM EDT Height 165.1 cm (5' 5 ) 04/24/2025 10:04 AM EDT Body Mass Index 19.64 04/24/2025 10:04 AM EDT Plan of Treatment Upcoming Encounters Date Type Department Care Team (Late st Contact Info) Description 07/24/2025 1:30 PM EDT Office Visit [facility] [address] [place] [address] Juan Manuel Mcqueen MD [address] [facility] [place] [address] Health Maintenance Due Date Last Done Comments CT Colonography 1971 Colonoscopy 1971 Colorectal Cancer Screening 1970 Diabetes: Hemoglobin A1C 1971 FIT-DNA 1971 FIT 1971 FOBT 1970 Medicare Annual Wellness (AWV) 1971 Sigmoidoscopy 1971 Diabetes: Retinopathy Screening 1981 Depression Screening 1983 Diabetes: Urine Protein Screening 1990 Hepatitis B Vaccines (1 of 3 - 19+ 3-dose series) 1990 Pneumococcal Vaccine: Pediatrics (0 to 5 Years) and At-Risk Patients (6 to 64 Years) (1 of 2 - PCV) 1990 Pap Smear 1992 Adult Tetanus 1993 Cervical Cancer Screening 2001 HPV/Cotest 2001 Mammogram 2011 COVID-19 Vaccine ( season) 2024 07/02/2021, 02/12/2021, 01/21/2021 Influenza Vaccine (#1) 2025 , 09/03/2022, 08/28/2021, Additional history exists Zoster Vaccines Completed 03/11/2022, 10/07/2021 HIB Vaccines Aged Out No longer eligi ble based on patient's age to complete this topic HPV Vaccines Aged Out No longer eligi ble based on patient's age to complete this topic IPV Vaccines Aged Out No longer eligi ble based on patient's age to complete this topic Meningococcal B Vaccine Aged Out No l onger eligible based on patient's age to complete this topic Meningococcal Vaccine Aged Out No danika terrell eligible based on patient's age to complete this topic Rotavirus Vaccines Aged Out No longer eligible based on patient's age to complete this topic Insurance [facility] MEDICARE ADVANTAGE
== END 2025-06-13 11:22 | disposition home or self-care (01) ==
PROVIDERS: PCP Family Medicine; Visit Provider Family Medicine
DX: S39.92XA Unspecified injury of lower back, initial encounter (principal)
CPT/HCPCS: 72220

== ENCOUNTER 2025-07-03 05:29 | Emergency (ER) | payer MEDICARE, MEDICAID, SELFPAY ==
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
--- OUTSIDE RECORDS SUMMARY | 2025-06-16 05:40 | XMS_ITS ---
Author Organization The [facility] in [place] Address [address] [place] [address] Care Team Providers Care Manganese Wheeler Name Role Phone J Carlos Burciaga Primary Care Provider REASON FOR VISIT BP Check Encounters Encounter Location Date Provider Diagnosis [facility] [address] [place] [address] 06/16/2025 J Carlos Burciaga Plan Of Treatment No Information Progress Notes * Jami WEINBERG EDOB:1970 (55 yo F)Acc No.[id number]:06/16/2025 Patient: Wilfrid AKHILANAJami :1970 A ge:55 Y S ex:Female Address:[address] [place] [phone] * true * Date: Generated for Murali slaughter/Rajendra/eTransmitting on: 0 07/03/2025 05:38 AM EDT
--- OUTSIDE RECORDS SUMMARY | 2025-06-16 06:18 | XMS_ITS ---
Author Organization The [facility] in [place] Address [address] [place] [address] Care Team Providers Care Nurse Intern Name Role Phone J Carlos Burciaga Primary Care Provider REASON FOR VISIT Medications Medications Medication SIG (Take, Route, Frequency, Duration) Notes Start Date End Date Status Ondansetron 4 MG 1 tablet on the tong ue and allow to dissolve Orally qid- PRN for 5 days 10/07/2024 Active tiZANidine HCl 4 MG 2 talets Orally thre e times daily 06/07/2025 Unknown Rosuvastatin Calcium 5 MG 1 tablet Oral Q HS for 90 days Unknown Pantoprazole Sodium 40 MG 1 tablet 1/2 t o 1 hour before morning meal Orally Once a day 06/07/2025 Unknown Potassium Chloride ER 10 MEQ TAKE ONE TABLET BY MOUTH TWICE A DAY WITH FOOD FOR 30 DAYS for 30 Unknown Metoprolol Tartrate 25 MG 1 tablet with food Orally Twice a day for 30 days 06/01/2025 Unknown Meclizine HCl 25 MG 1 tablet as needed O rally once a day PRN Unknown Magnesium Oxide 400 MG 1 tablet with ana maria d Orally twice daily 06/07/2025 Unknown HYDROcodone-Acetaminophen 5-325 MG 1 tablet as needed Orally every 6 hrs for 7 days PRN 08/25/2024 Unknown Ocrevus 300 MG/10ML as directed Intravenous 2024 Unknown Linzess 72 MCG 1 capsule at least 30 minutes before the first meal of the day on an empty stomach Orally every other day for 30 days samples 08/23/2024 Active diazePAM 5 MG 1 tablet as needed O rally Once a day PRN 06/07/2025 Unknown Ferrous Sulfate 325 (65 Fe) MG 1 tablet Orally once daily 06/07/2025 Unknown busPIRone HCl 7.5 MG 1 tablet Orally TID Unknown Aspirin Adult Low Dose 81 MG 1 tablet Orally Once a day Unknown Biotin Unknown Vitamin D (Cholecalciferol) 50 MCG (2000 UT) 1 capsule Orally Once a day Unknown Adult Brief Medium use for incontinence for 30 days dx G35 06/13/2025 Unknown Toviaz 8 MG 1 tablet Orally Once a day for 30 days 06/08/2023 Unknown Encounters Encounter Location Date Provider Diagnosis [facility] [address] [place] [address] 06/16/2025 J Carlos Scherercelio IBS (irritable bowel syndrome) K58.9 Assessments Encounter Date Diagnosis (ICD Code) Assessment Notes Treatment Notes Treatment Clinical Notes Section Notes 06/16/2025 IBS (irritable bowel syndrome) (ICD-10 - K58.9) Plan Of Treatment Medication Medication Name Sig Start Date Stop Date Notes Ondansetron 4 MG 1 tablet on the tong ue and allow to dissolve Orally qid- PRN for 5 days 10/07/2024 Linzess 72 MCG 1 capsule at least 3 0 minutes before the first meal of the day on an empty stomach Orally every other day for 30 days 08/23/2024 cloNIDine 0.1 MG/24HR 1 patch to skin Tr ansdermal once weekly predniSONE 20 MG 1 tablet with food o r milk Orally Once a day 06/07/2025 PRN Progress Notes * Jami WEINBERG EDOB:1970 (55 yo F)Acc No.[id number]:06/16/2025 Patient: Wilfrid Jami JOSE :1970 A ge:55 Y S ex:Female Address:[address] [place] [id number] * Refills Stop cloNIDine Patch Weekly, 0.1 MG/24HR, Transdermal, 1 patch to skin, once weekly Refill Ondansetron Tablet Disintegrating, 4 MG, Orally, 1 tablet on the tongue and allow to dissolve, qid- PRN, 5 days, Refills=11 Refill Linzess Capsule, 72 MCG, Orally, 1 capsule at least 30 minutes before the first meal of the day on an empty stomach, every other day, 30 days, Refills=11 Stop predniSONE Tablet, 20 MG, Orally, 1 tablet with food or milk, Once a day Subjective: * Chief Complaints: * M edications * Medical History: * Surgical History: * Hospitalization/Major Diagno stic Procedure: * Medications: U nknownAdult Brief Medium use for incontinence dx [id number] Adult Low Dose(Aspirin) 81 MG Tablet Delayed Release 1 tablet Orally Once a day Biotin busPIRone HCl 7.5 MG Tablet 1 tablet Orally TID cloNIDine 0.1 MG/24HR Patch Weekly 1 patch to skin Transdermal once weekly diazePAM 5 MG Tablet 1 tablet as needed Orally Once a day , Notes to Pharmacist: PRNFerrous Sulfate 325 (65 Fe) MG Tablet 1 tablet Orally once daily HYDROcodone-Acetaminophen 5-325 MG Tablet 1 tablet as needed Orally every 6 hrs , Notes to Pharmacist: PRNLinzess(linaCLOtide) 72 MCG Capsule 1 capsule at least 30 minutes before the first meal of the day on an empty stomach Orally Once a day samplesMagnesium Oxide 400 MG Tablet 1 tablet with food Orally twice daily Meclizine HCl 25 MG Tablet 1 tablet as needed Orally once a day , Notes to Pharmacist: PRNMetoprolol Tartrate 25 MG Tablet 1 tablet with food Orally Twice a day Ocrevus(Ocrelizumab) 300 MG/10ML Solution as directed Intravenous Ondansetron 4 MG Tablet Disintegrating 1 tablet on the tongue and allow to dissolve Orally qid Pantoprazole Sodium 40 MG Tablet Delayed Release 1 tablet 1/2 to 1 hour before morning meal Orally Once a day Potassium Chloride ER 10 MEQ Tablet Extended Release TAKE ONE TABLET BY MOUTH TWICE A DAY WITH FOOD FOR 30 DAYS predniSONE 20 MG Tablet 1 tablet with food or milk Orally Once a day , Notes to Pharmacist: PRNRosuvastatin Calcium 5 MG Tablet 1 tablet Oral Q HS tiZANidine HCl 4 MG Tablet 2 talets Orally three times daily Toviaz(Fesoterodine Fumarate ER) 8 MG Tablet Extended Release 24 Hour 1 tablet Orally Once a day Vitamin D (Cholecalciferol) 50 MCG (1999 UT) Capsule 1 capsule Orally Once a day Medication List reviewed and reconciled with the patientUnknown Adult Brief Medium use for incontinence dx [id number] Aspirin Adult Low Dose(Aspirin) 81 MG Tablet Delayed Release 1 tablet Orally Once a day Unknown Biotin Unknown busPIRone HCl 7.5 MG Tablet 1 tablet Orally TID Unknown cloNIDine 0.1 MG/24HR Patch Weekly 1 patch to skin Transdermal once weekly Unknown diazePAM 5 MG Tablet 1 tablet as needed Orally Once a day , Notes to Pharmacist: PRNUnknown Ferrous Sulfate 325 (65 Fe) MG Tablet 1 tablet Orally once daily Unknown HYDROcodone-Acetaminophen 5-325 MG Tablet 1 tablet as needed Orally every 6 hrs , Notes to Pharmacist: PRNUnknown Linzess(linaCLOtide) 72 MCG Capsule 1 capsule at least 30 minutes before the first meal of the day on an empty stomach Orally Once a day samplesUnknown Magnesium Oxide 400 MG Tablet 1 tablet with food Orally twice daily Unknown Meclizine HCl 25 MG Tablet 1 tablet as needed Orally once a day , Notes to Pharmacist: PRNUnknown Metoprolol Tartrate 25 MG Tablet 1 tablet with food Orally Twice a day Unknown Ocrevus(Ocrelizumab) 300 MG/10ML Solution as directed Intravenous Unknown Ondansetron 4 MG Tablet Disintegrating 1 tablet on the tongue and allow to dissolve Orally qid Unknown Pantoprazole Sodium 40 MG Tablet Delayed Release 1 tablet 1/2 to 1 hour before morning meal Orally Once a day Unknown Potassium Chloride ER 10 MEQ Tablet Extended Release TAKE ONE TABLET BY MOUTH TWICE A DAY WITH FOOD FOR 30 DAYS Unknown predniSONE 20 MG Tablet 1 tablet with food or milk Orally Once a day , Notes to Pharmacist: PRNUnknown Rosuvastatin Calcium 5 MG Tablet 1 tablet Oral Q HS Unknown tiZANidine HCl 4 MG Tablet 2 talets Orally three times daily Unknown Toviaz(Fesoterodine Fumarate ER) 8 MG Tablet Extended Release 24 Hour 1 tablet Orally Once a day Unknown Vitamin D (Cholecalciferol) 50 MCG (1999 UT) Capsule 1 capsule Orally Once a day Medication List reviewed and reconciled with the patient Objective: * Vitals: * Physical Examination: Assessment: * Assessment: 1. I BS (irritable bowel syndrome) - K58.9 Plan: * Treatment: 2. O thers Stop cloNIDine Patch Weekly, 0.1 MG/24HR, 1 patch to skin, Transdermal, once weekly; R efill Ondansetron Tablet Disintegrating, 4 MG, 1 tablet on the tongue and allow to dissolve, Orally, qid- PRN, 5 days, Refills 11; S top predniSONE Tablet, 20 MG, 1 tablet with food or milk, Orally, Once a day, Notes to Pharmacist: PRN. * Procedure Codes: * true * Date: Generated for Murali slaughter/Rajendra/Grecia on: 0 07/03/2025 05:38 AM EDT
--- OUTSIDE RECORDS SUMMARY | 2025-06-20 11:40 | XMS_ITS ---
Author Organization The [facility] in [place] Address [address] [place] [address] Care Team Providers Care King Maker Name Role Phone J Carlos Burciaga Primary Care Provider REASON FOR VISIT BP low Medications Medication SIG (Take, Route, Fr equency, Duration) Notes Start Date End Date Status Coreg 3.125 MG 1 tablet with food O rally Twice a day for 30 days 06/20/2025 Active Encounters Encounter Location Date Provider Diagnosis [facility] [address] [place] [address] 06/20/2025 J Carlos Burciaga Multiple sclerosis G 35 Assessments Encounter Date Diagnosis (ICD Code) Assessment Notes Treatment Notes Treatment Clinical Notes Section Notes 06/20/2025 Multiple sclerosis (ICD-10 - G35) Plan Of Treatment Medication Medication Name Sig Start Date Stop Date Notes Coreg 3.125 MG 1 tablet with food O rally Twice a day for 30 days 06/20/2025 Metoprolol Tartrate 25 MG 1 tablet with food Orally Twice a day 06/01/2025 Progress Notes * Jami WEINBERG EDOB:1970 (55 yo F)Acc No.[id number]:06/20/2025 Patient: Wilfrid AKHILANAJami :1970 A ge:55 Y S ex:Female Address:[address] [place] [phone] * Refills Start Coreg Tablet, 3.125 MG, Orally, 60, 1 tablet with food, Twice a day, 30 days, Refills=11 Stop Metoprolol Tartrate Tablet, 25 MG, Orally, 1 tablet with food, Twice a day * true * Date: Generated for Murali slaughter/Rajendra/Grecia on: 0 07/03/2025 05:37 AM EDT
--- OUTSIDE RECORDS SUMMARY | 2025-06-22 06:36 | XMS_ITS ---
Author Organization The [facility] in [place] Address [address] [place] [address] Care Team Providers Care Care Asst Name Role Phone J Carlos Burciaga Primary Care Provider REASON FOR VISIT clarify Vit D Encounters Encounter Location Date Provider Diagnosis [facility] [address] [place] [address] 06/22/2025 J Carlos Burciaga Plan Of Treatment No Information Progress Notes * Jami WEINBERG EDOB:1970 (55 yo F)Acc No.[id number]:06/22/2025 Patient: Wilfrid JOSEJami :1970 A ge:55 Y S ex:Female Address:[address] [place] [phone] * true * Date: Generated for Eduardi sukhjinder/Rajendra/eTransmitting on: 0 07/03/2025 05:38 AM EDT
[2025-07-03] VITALS (20 sets, daily range): BP systolic 172–202; BP diastolic 98–132; PULSE 90–138; TEMP 36.9; O2SAT 96–99; BMI 20.1
--- OUTSIDE RECORDS SUMMARY | 2025-07-03 05:38 | XMS_ITS | CCD ---
Author Organization [facility] Care Team Providers Care Manager Of Sustainability Name Role Phone ELTAHAWY, EHAB A Unavailable [...] Unavailable Krishan Burciaga MD Primary Care Provider [phone] Krishan Burciaga MD Primary Care Provider [phone] MOISE MCNULTY Attending Unavailable MARSHAL DODGE Attending Unavailable MARSHAL DODGE Attending Unavailable MARSHAL DODGE Attending Unavailable CARLOS MARTIN Attending Unavailable Allergies Allergy Classification Reported Allergen(s) Allergy Type Date of Onset Reaction(s) Facility (2 sources) Penicillins; Translations: [PENICILLINS] Drug allergy (disorder) 06-02-2015 [facility]ository (3 sources) Sulfonamides (Antibiotic); Translations: [SULFA (SULFONAMIDE ANTIBIOTICS)] Drug allergy (disorder) 09-14-2013 [facility]ository (2 sources) hydrALAZINE; Translations: [HYDRALAZINE] Drug Allergy 04-15-2021 [facility] Repository (1 source) Penicillin Drug Allergy 09-14-2013 [facility] Repository (17 sources) atorvastatin; Translations: [ATORVASTATIN] Drug Allergy 04-30-2023 [facility] (16 sources) hydrALAZINE Drug Allergy 04-16-2022 Unknown [facility] (16 sources) Penicillins Drug Allergy 04-16-2022 Unknown [facility] (16 sources) Sulfonamides (Antibiotic) Drug Allergy 04-30-2023 [facility] Medications Current Medications Medication Drug Class(es) Dates Sig (Normalized) Sig (Original) biotin 10 mg oral tablet (16 sources) take 1 tablet by mouth every twelve hours biotin 10 MG tablet Take 10 mg by mouth every 12 (twelve) hours. Active busPIRone hydrochloride 7.5 mg oral tablet (17 sources) Start: 4 End: 5 take 1 tablet by mouth in the morning, then take 1 tablet by mouth in the evening, then take 1 tablet by mouth at bedtime busPIRone (Buspar) 7.5 MG tablet Indications: Multiple sclerosis (HCC) Take 1 tablet (7.5 mg) by mouth in the morning and 1 tablet (7.5 mg) in the evening and 1 tablet (7.5 mg) before bedtime. 270 tablet 3 07/26/2024 07/26/2025 Active carvedilol 12.5 mg oral tablet (16 sources) alpha-Adrenergic Diamante, beta-Adrenergic Diamante take 1 tablet by mouth in the morning, then take 1 tablet by mouth in the evening, then take 1 tablet by mouth at bedtime carvedilol (Coreg) 12.5 MG tablet Take 12.5 mg by mouth in the morning and 12.5 mg in the evening and 12.5 mg before bedtime. Active cholecalciferol 1.25 mg oral capsule (16 sources) Vitamin D take 1 capsule by mouth every week cholecalciferol (Vitamin D-3) 1.25 MG (14080 UT) capsule Take 1 capsule by mouth 1 (one) time per week. Active 168 hr cloNIDine 0.46968 mg/hr transdermal system (16 sources) Central alpha-2 Adrenergic Agonist cloNIDine (Catapres-TTS) [...] 04/06/2025 Active dexamethasone 2 mg oral tablet (18 sources) Corticosteroid Start: 4 End: 5 dexAMETHasone (Decadron) 2 MG tablet Indications: Multiple sclerosis (HCC) TAKE THREE TABLETS BY MOUTH DAILY FOR 3 DAYS, TWO TABLETS FOR 3 DAYS, THEN ONE TABLET FOR 3 DAYS AND THEN STOP (9 DAYS TOTAL) 18 tablet 1 02/22/2025 Active ferrous sulfate 325 mg oral tablet (16 sources) take 1 tablet by mouth at mealtime ferrous sulfate 325 (65 Fe) MG tablet Take 325 mg by mouth in the morning. Take with meals. Active 24 hr fesoterodine fumarate 4 mg extended release oral tablet (16 sources) Start: 3 take 1 tablet by mouth in the morning, then take 1 tablet by mouth every twenty-four hours fesoterodine ER (Toviaz) 4 MG 24 hr tablet Take 4 mg by mouth in the morning. 11/20/2022 Active fluconazole 200 mg oral tablet (18 sources) Azole Antifungal Start: 4 End: 5 take 1 tablet by mouth in the morning fluconazole (Diflucan) 200 MG tablet Indications: Acute relapsing multiple sclerosis (HCC) TAKE 1 TABLET (200 MG) BY MOUTH IN THE MORNING FOR 9 DAYS. 9 tablet 1 02/22/2025 Active meclizine hydrochloride 25 mg oral tablet (16 sources) Antiemetic Start: 4 take 1 tablet by mouth three times daily as needed for dizziness meclizine (Antivert) 25 MG tablet Indications: Dizziness TAKE 1 TABLET (25 MG) BY MOUTH 3 (THREE) TIMES A DAY NEEDED FOR DIZZINESS. 30 tablet 11 11/30/2023 Active 10 ml ocrelizumab 30 mg/ml injection (16 sources) ocrelizumab (Ocrevus) 300 MG/10ML solution Infuse 300 mg into a venous catheter See administration instructions. Does 2 times yearly Active potassium chloride 10 meq extended release oral tablet (16 sources) take 1 tablet by mouth twice daily at mealtime potassium chloride CR (Klor-Con) 10 MEQ ER tablet TAKE ONE TABLET BY MOUTH TWICE A DAY WITH FOOD FOR 30 DAYS Active rosuvastatin calcium 10 mg oral tablet (16 sources) HMG-CoA Reductase Inhibitor take 1 tablet by mouth in the morning rosuvastatin (Crestor) 10 MG tablet Take 10 mg by mouth in the morning. Active tiZANidine 4 mg oral tablet (20 sources) Central alpha-2 Adrenergic Agonist Start: End: take 2 tablets by mouth every eight hours for muscle spasms tiZANidine (Zanaflex) 4 MG tablet Indications: Multiple sclerosis (HCC) Take 2 tablets (8 mg) by mouth every 8 (eight) hours if needed for muscle spasms 540 tablet 2 05/24/2025 08/22/2025 Active Start: 09-22-2024 End: 11-21-2024 take 2 [...] Documented Da te Episodic/Chronic Acute cerebrovascular disease (18 sources) Cerebellar infarction; Translations: [Cerebral infarction, unspecified] Onset: 04-30-2023 08-29-2024 Chronic Acute myocardial infarction (20 sources) Acute non-ST segment elevation myocardial infarction; Translations: [Non-ST elevation (NSTEMI) myocardial infarction] Onset: 04-30-2023 04-30-2023 Chronic Anxiety disorders (16 sources) Anxiety; Translations: [Anxiety disorder, unspecified] Onset: 11-16-2023 11-16-2023 Chronic Bacterial infection; unspecified site (2 sources) Bacteremia; Translations: [Bacteremia] Onset: 04-24-2025 Episodic Diabetes mellitus without complication (17 sources) Type 2 diabetes mellitus without complications; Translations: [Type 2 diabetes mellitus] Onset: 11-17-2022 11-16-2023 Chronic Disorders of lipid metabolism (2 sources) Mixed hyperlipidemia; Translations: [Mixed hyperlipidemia] Onset: 04-24-2025 Chronic Essential hypertension (19 sources) Essential (primary) hypertension; Translations: [Hypertensive disorder] Onset: 11-17-2022 04-30-2023 Chronic Multiple sclerosis (20 sources) Multiple sclerosis; Translations: [Acute relapsing multiple sclerosis] Onset: 08-15-2021 Chronic Nutritional deficiencies (17 sources) Vitamin D deficiency, unspecified; Translations: [Vitamin D deficiency] Onset: 11-17-2022 11-16-2023 Chronic Osteoarthritis (20 sources) Osteoarthritis; Translations: [Unspecified osteoarthritis, unspecified site] Onset: 11-16-2023 11-16-2023 Chronic Other circulatory disease (4 sources) Stricture of artery; Translations: [STRICTURE OF ARTERY] Onset: 06-26-2016 Chronic Other gastrointestinal disorders (16 sources) Irritable bowel syndrome; Translations: [Irritable bowel [...] Onset: 06-26-2016 Episodic Other connective tissue disease (16 sources) Muscle pain; Translations: [Myalgia, unspecified site] Onset: 04-16-2022 04-30-2023 Episodic Skin and subcutaneous tissue infections (16 sources) Cellulitis; Translations: [Cellulitis, unspecified] Onset: 05-16-2024 05-16-2024 Episodic Unclassified (1 source) Other general symptoms and signs; Translations: [OTHER GENERAL SYMPTOMS AND SIGNS] Onset: 06-26-2016 Episodic Results Test Name Value Interpretation Reference Range Facility Office Visiton 04-24-2025 Follow-up visit [id number] Jami Connors 1970 F Date Provider Department Center 04/24/2025 MOISE SMITH YOUSUF Sepulveda Family History Problem Relation Age of Onset Heart failure Mother Heart attack Father Cancer Sister Family Status - Relation Status Age at Mother Father Sister Level of Service:99694 [place] OFFICE/OP CONSLTJ NEW/EST PT MOD MDM 40 MINUTES Normal [facility] PT - Assessmentson 3 PT - Assessments [id number]#1 .00CD:127 Normal [facility] Coding Summary.on 11-18-2022 Coding Summary. CD:[id number] G h0bWw+PGhlYWQ+KH0ABVK pL90fsXXdcK4GQ6wHAO5E HCIMOQEXVV6PTV6fiJA4U WtgN7NunoQb AzyksQArCN23UGk1NKJ7y WswIPiczU6efQSlZ5k8Xr PuRB87tR48YXjtPEPtBiZ 3LjZpbjsgbWFy Z1nfWdVbtHUoVvc+PHRhY mxlIHdpZHRoPScxMDAlJy IplQnhIL4zIf6wTTAaRQC vbGxhcHNlOiBj a1ffGGNeJBazLW6ihDbrB 8RwlVN5VBDmu7k0Rt91nP I+XDJiSBF2sWmcLFqag25 1NlKeb9qbMMY5 cIYyPXduJXI9K68rj1W8N WJiOGAeGPI5tQE9bT9krZ xbyegjL9XzmCNnQmW4QMK 0jATnzC5niRgo yolnuJ4bGaf+L91LAK6CO TPTXI4INzn0X7VkBfmbaE I+HG98HAUxFG12nGLagJI ps1pezIv7AxXt XHIgXYN8hEyrWMbwr9DwJ SEaH03quSWqg1C4GZGfuG gmuZWeSuHmlFF4iG2fLFl xxcraf3dljtbz Mgzxw6laks56mA28F50eC GnnRFIpCPO1YSLaHPTlvZ azjk0reI6nEx1+IUkgy7p cz6khmRy7RsYb NMEpxoEzrAidBMG0j5MdN b15H5KqsLkkl2XgJqj1pb 95iOHiu9W1zNS0NPxuQSL dhR8gOYfiJyC2 NLZqYnFhyG70vICvDMkpZ e0eiImkoKxlLZ2fBFSehi gdLZEhhN5gLQNhrOEttEq yPD4iXHHxykjv g374BmFnELY6NAEpeYEvW 2RkxA8oLbZgDJHrUXAaB7 YfpJDkWEbmZ890TMcvRkS 4HWHjazFgW3Ql AYXknKxqUbN0b4G6Xa2Yu 0AlrjbyVXA0BDtoHUWvIb D6UgPxAwG8S9WqKfe5YYT xrMoiKJ4eI3Hy PVOlodjspamnyBU3HKGjY JPqeC26jYTdNStbNe2tu8 I2o420YHBdLVWvwU15Jk3 udDogMTBwdCBU xL3bgqdxi7eaaqelGmVxT ASxTAr0WZu8ZUWqwFbkMi JxDOK3TgH9MXV9vQTegD7 bmHbtqgbwdV6q Oyc+X00mrP9lUWA5WEH1i lycPEKwbpDjJT22LI81J8 RyPjwvdGFibGU+PGRpdiB vbFgkVU9yDlQc w5fcj9ByCVphY1IcLSHcI XjsGjm9SOQeEXV8pYE9aK 6iWSKnJDpkp9O7eYL2K0C kenEmex8mo2xf XRKeXBhkN55oeSVrk4E4S AOgdVX1HVOmePsuWmCupN 93Oyc+PJFelQpxj7DvJlc sp1ijl5vagOq6 HqEoLKYsziKfpWunHJU6p 2IkZr37F56hZKtuFXEqMP QlFZWfUKOieWvgvo7nhW3 wIi8+PGNvbCB3 nRR1aN1rNXRwSfY7QUguG 690BnYhnSLwGrxkp3cly9 rusRm1SjPcNBEmleGayEi kWKJ3n0NcSs79 K15dWQtuYVXxYKXcFRUiV NHenKzjrb2ddY5qUu5+PC 6fn8ceza48iB94fSJ+PHR tDJN4mCdlTObv YKHldU3xYPecRaS6WNWgL oHidS97uSIzSZclAi8mbG fyyBceOW8fTNGhyworr99 3QrBpe6bnQXOj aOGfQVkdFPK5A30uj4Y1G DNoMLNmXNJ7pBA9sL8laY lnbjogbGVmdDsgdmVydGl zKPyaZJseZ511 IHRvcDsnPlBhdGllbnQgT jLbJAq5C7IlTbl5ZHIpmS oxJY2ehPRnRBcoGe7bnMl fwIytYG9qGNHf tlvjo851MsAxn8lpLFUhi YSqICxqETR2I73ee1B7EV TmYWSzPVB6iBK0tN5wsPi nbjogbGVmdDsg ubKrzYrvRUkjFYorM885K HRvcDsnPkJpcnRoIERhdG Z3ZQ82MI96vTWem3U7tFM 5T8RbXLYzwteb ebmtlAF8BSUwEUEbhT84Q n2mqXpaKm2dHEVkFUZ8DV DibDNyV3KahM5bMdAfPBG uMJTfG1TxoECl IKnqB248FVzmRlG5ETOea jImP2NcMYHbpDhjMlM9s1 R0Xg5OV4F0GS87NY28gNK dd1V4dQO9N0Wz WTXnbgtdppkysXN6ZDDsS VWkpH22Or2ahXqqKv7tFJ NcPWP9OPBghQDpX2HlbU7 yOiAjMDAwMDAw C2RheOHpGIpiX871ONuyZ xV7GAAumwZgR0PaIBZunU dnZyW5g9R8Js4OEYk2WU8 0FF78ySNyo8R8 pAH4A7SlKKEjrfyuexouc XB8LRQmITQtcF46Mu3jeJ bhMi7jWGPzLEO5AWCuyPK zA8HnaW4bUxWl QJDfXBFqJ5JkuNLxYBiqD 535SZtwYqS0SOHynqLgZ8 VpANNjdMfmHnI1c2Z4Mj2 YEACyLI56KLA6 lAR1SX80VR89U0FvVnbep GFibGU+PHRhYmxlIHdpZH RoPScxMDAlJyBzdHlsZT0 zUv1tCHUyOYQc cVyfoSRbKyZdi5spGHWsH HpqLD3txCyaC5AtjQQ0RS Zae2m4Dh58L25bZ1RshSQ +PDLmqSQ2iAQ1 mM5rCqLsRaF7VKuqP278S iMzdXJeOftbq9ths5sbtV x6TnL2SBYmwhGccKltDGG 2p2DoEz50D86l IHdpZHRoPSIxNSUiIHZhb Rjshs0liB6xAf3+PGNvbC O7sCD6wD1eLmPmJnF9WRq iB668QvYimWEb Alzkm0yba9gzkMn4QzIqN EKeifLjwIpiRKA5k6AkZc 84X7TvhXunl7UgKhm4ny2 8sVZsm3N0gUX5 Y8HuNVJfwhaneGAveQmjR D4cARJgfmjeJXJzdL3hHQ BwL3j2DpEeCfQ1NQfqV6Y ixoO0DEWlbRCn BPbqSTY3R22px8Q9JBQpG UAdQUV5fAR6hP9dwFekon ogbGVmdDsgdmVydGljYWw zNPzxE043BRIm iPutBGNpsM6uQDWyrJNzy FehZV1mTZZzqwllBySQEW zIDLLZP8YLRlXLVA76FY7 3bRUeq5K0nOZ7 F7ByYSYbgctlrwsvpFF9S CMfOFDarN82tWRyFRirKx 8gl1Y9s438IOFhZMFigB8 4Rq7qcFlhQOLt dAENvB7tycrgj4xvgnjhD gHpIXXnLUz7JGj6TPMwpJ bqCvMyDRB8BkN8CYM2jYG jvF6aqCftvakk nT0zJgh+JEHbLHqpPEe8P TwvdGQ+ARLlWHP1xSdyDI gvRMRpmL6lIZStV6s3VyI eNuC2KGvpK6Em UVRbvlysOk82kD9sAoSpE cD6CAnqG2ChryZ5QDXroQ BwUSkdCFU4K24mv3O0HFQ mHMKlUKQ2gAE2 xH9jbZucpnjfkKJwqGgzu lDlyXjjGKtbHSpuJ360WC RvcDsnPjUxIFllYXJzPC9 1WZ46eZSfm4W0 nWB5S3TeXUJuaqduawuzh VZ7RCYdLNFitB22nKMqGZ igGi9rh5R6x671OLGdQWY dhE85Co9nhDwg HTColMPJnB0dkpcbw3rhm upaWbFxSIChPMu8WFd4FU NncIulPoNdDSR2RlA3GWH 6dZXbnA1emKla gqnocF7fOqs+RmVtYWxlP D67YN98nKLfe1J0zHA9K7 MxERCstgymsxsgoIU7ITO uZEXjfH55aDHp RHcbMn2qf7D7f933MSGmM VXayR87Yx9mjFlaDDXtbF FPrI8mlvzxo0jybzpoCmZ mRYRaAOz1GZa4 OWVuhWmvWaTqAEB8CfB4U QJ1aUUumM0nuXkpkpsdvV 9wOyc+DtNdaTUewI8vYL4 9JP38O5MtHkbg dGFibGU+PHRhYmxlIHdpZ HRoPScxMDAlJyBzdHlsZT 9zIe2sZMUlPHNosHdmqGI wEuHvi6slDFPc CDlpCA7doBahD1NgyNK1F CHtg9l6Us48F22uE5PjjH A+LFVjmTB8iQG8sR1tGdB tWiW9TAzzB509 EeNfgWCaRttmm3qhq5lha Cn9ZtVgQNPvudYijZytSS I1a2MsXc84T98vIBpdSAH oPSIyMCUiIHZh xWukdi2ztR6zVu4+PGNvb HW1uNR4bB8aOmRvKdG2KT qiO280KvRqzYLkZijdY51 iN9WkyIT+PHRy Nhb4TXKcyCdqPH2oiSTyJ VoiSf3zVHA7BoGcIoIxMM uaF7CfOHGcagsvrbvycIB 7QRHzQNWsyK51 Sc0hpKsfMj1nXLXaZHJ8V GHbiWLzM5KnrR6hOmFlAK McXJZrD6NkoCNlKHcrN54 0DVnsBpM7JIEx hnMoH0MlQEOjmHzzMeL1b 9E4Cv0QnBbenERwBL8uIz GoCIi5E9XnTma2JLBlaWt pOX4hsLGxANmk Lg1djFwmxUnfOL6lYKPec bxql372HvTsv5tqBWBhqS StBRumZPP3K65jn9Z1PXZ qVUPdURV2fRQ4 wS1ehSvoiktohEJjvIhfm pTzrHbrSYxkUNowA655MX PpePekGgGQSve5S6PoWtq 2IMFckBmgJC6j fZVpRFqgRb0ymIimsExzL F8dQPQlkimew780NoXkz0 blVYKukTMoFLrjKJU9E40 rr3E1QZMuZNTe DRF1oRY2bN1roNwlumkvr GVmdDsgdmVydGljYWwtYW pvC047LFEmjKgkJu4QZvu 4M7QhGjd8DHZh gSzjOA6kdXEcMBccFt4jq KdvlEpxBL6lVJXoejrhx1 11ErRnz8mkSTGphJPoMPy wCCK6B61oj1H7 TVWiTXVtAUS7aMZ2oT1zx GlnbjogbGVmdDsgdmVydG kuTFrhJMfsT385VFKtxBt nPlBheWVyOjwv dGQ+BX46cg25E1FoNhntO ja6NNCeSOP8bRQ0zO0jCK MaXJvxi2L0cOY9X1LthqA xno1kk9ioTWEx ZTog (more content not included)... Normal [facility] Insurance Correspondenceon 0 - Insurance Correspondence [id number]# 1.00CD:127 Normal [facility] Consent for Treatmenton 11-02 Consent for Treatment [id number]#1 .00CD:127 Normal [facility] PT - Orderson 11-17-2022 PT - Orders [id number]#1 .00CD:127 Normal [facility] CBC AUTO DIFFon 11-04-2022 BASO # 0.0 103/ul Normal 0.0-0.1 [facility] Comment on above: Performed By: #### C BC ####[facility] [address] [place] [address]Dr. Linnea Jane Basophils/100 WBC (Bld) 0.3 % Normal 0.2-2.0 [facility] Comment on above: Performed By: #### C BC ####[facility] [address] [place], [place] [address]Dr. Linnea Jane EO # 0.2 103/ul Normal 0.0-0.7 [facility] Comment on above: Performed By: #### C BC ####[facility] [address] [place] [address]Dr. Linnea Jane Eosinophils/100 WBC (Bld) 3.3 % Normal 0.9-7.0 [facility] Comment on above: Performed By: #### C BC ####[facility] [address] [place] [address]Dr. Linnea Jane Erythrocyte distribution width (RBC) [Ratio] 13.7 % Normal 11.0-15.0 [facility] Comment on above: Performed By: #### C BC ####[facility] [address] [place], [place] [address]Dr. Linnea Jane Hematocrit (Bld) [Volume fraction] 37.1 % Normal 36.0-48.0 [facility] Comment on above: Performed By: #### C BC ####[facility] [address] [place] [address]Dr. Linnea Jane Hemoglobin (Bld) [Mass/Vol] 12.2 g/dL Normal 12.0-16.0 [facility] Comment on above: Performed By: #### C BC ####[facility] [address] [place] [address]Dr. Linnea Jane IG # 0.06 10e3/ul Critically high 0.00-0.03 [facility] Comment on above: Performed By: #### C BC ####[facility] [address] [place] [address]Dr. Linnea Jane IG % 1.0 % Critically high 0.0-0.[address] [facility] Comment on above: Performed By: #### C BC ####[facility] [address] [place], [place] [address]Dr. Linnea Jane LYMPH # 0.4 103/ul Critically low 1.2-3.8 [facility] Comment on above: Performed By: #### C BC ####[facility] [address] [place], [place] [address]Dr. Linnea Jane Lymphocytes/100 WBC (Bld) 6.8 % Critically low 20.5-60.0 [facility] Comment on above: Performed By: #### C BC ####[facility] [address] [place] [address]Dr. Linnea Jane MANUAL DIFF REQ NO Normal [facility] Comment on above: Performed By: #### C BC ####[facility] [address] [place] [address]Dr. Linnea Jane MCH (RBC) [Entitic mass] 28.4 pg Normal 26.7-34.0 [facility] Comment on above: Performed By: #### C BC ####[facility] [address] [place], [place] [address]Dr. Linnea Jane MCHC (RBC) [Mass/Vol] 32.9 g/dL Normal 29.9-35.2 [facility] Comment on above: Performed By: #### C BC ####[facility] [address] [place] [id number]. Linnea Jane MCV (RBC) [Entitic vol] 86.5 fL Normal 81.0-99.0 [facility] Comment on above: Performed By: #### C BC ####[facility] [address] [place] [id number]. Linnea Jane MONO # 0.7 103/ul Normal 0.3-0.8 [facility] Comment on above: Performed By: #### C BC ####[facility] [address] [place] [id number]. Linnea Buck Monocytes/100 WBC (Bld) 11.3 % Normal 1.7-12.0 [facility] Comment on above: Performed By: #### C BC ####[facility] [address] [place], [place] [address]Dr. Linnea Jane NEUT # 4.5 103/ul Normal 1.4-6.5 [facility] Comment on above: Performed By: #### C BC ####[facility] [address] [place] [id number]. Linnea Jane Neutrophils/100 WBC (Bld) 77.3 % Critically high 43.0-75.0 [facility] Comment on above: Performed By: #### C BC ####[facility] [address] [place] [address]Dr. Linnea Jane Platelet mean volume (Bld) [Entitic vol] 9.0 fL Critically low 9.5-13.5 [facility] Comment on above: Performed By: #### C BC ####[facility] [address] [place] [id number]. Linnea Buck PLT 429 103/ul Normal 150-450 [facility] Comment on above: Performed By: #### C BC ####[facility] [address] [place], [place] [id number]. Linnea Buck RBC 4.29 106/ul Normal 4.20-5.40 [facility] Comment on above: Performed By: #### C BC ####[facility] [address] [place], [place] [address]Dr. Linnea Jane WBC 5.8 103/ul Normal 4.0-11.0 [facility] Comment on above: Performed By: #### C BC ####[facility] [address] [place] [id number]. Linnea Jane FREE T3on 11-04-2022 FREE T3 2.58 pg/mlL Normal 2.18-3.98 [facility] Comment on above: Performed By: #### C MP, FT3, LIPID, T4, TSH #### [facility] [address] [address] [address] Linnea Jane GLYCOHEMOGLOBIN A1Con 2022 ADA RECOMMENDATION SEE BELOW Normal [facility] Comment on above: Result Comment: ADA RECOMMENDED LIMIT 4.0 - 6.0 ADA THERAPEUTIC TARGET < 7.0 ACTION SUGGESTED > 7.0 Performed By: #### A 1C #### [facility] [address] [address] [address] Linnea Jane Glucose [Mass/Vol] 151 mg/dL Normal [facility] Comment on above: Performed By: #### A 1C #### [facility] [address] [address] [address] Linnea Jane HbA1c (Bld) [Mass fraction] 6.9 % Critically high 4.5-6.2 [facility] Comment on above: Performed By: #### A 1C #### [facility] [address] [address] [address] Linnea Jane LIPID PROFILEon 11-04-2022 CHOL-HDL RATIO NORM SEE BELOW Normal [facility] Comment on above: Result Comment: 3.3 - 4.4 LOW RISK 4.4 - 7.1 AVERAGE RISK 7.1 - 11.0 MODERATE RISK >11.0 HIGH RISK Performed By: #### C MP, FT3, LIPID, T4, TSH #### [facility] [address] [address] [address] Linnea Jane Cholesterol [Mass/Vol] 174 mg/dL Normal <=200 [facility] Comment on above: Performed By: #### C MP, FT3, LIPID, T4, TSH #### [facility] [address] [address] [address] Linnea Jane Cholesterol in HDL [Mass/Vol] 74 mg/dL Critically high 40-60 [facility] Comment on above: Performed By: #### C MP, FT3, LIPID, T4, TSH #### [facility] [address] [address] [address] Linnea Jane Cholesterol in LDL [Mass/Vol] 82.2 mg/dL Normal [facility] Comment on above: Performed By: #### C MP, FT3, LIPID, T4, TSH #### [facility] [address] [address] [address] Linnea Jane Cholesterol.total/Cho lesterol in HDL [Mass ratio] 2.4 {ratio} Normal [facility] Comment on above: Performed By: #### C MP, FT3, LIPID, T4, TSH #### [facility] [address] [place] [address] Dr. Linnea Jane HDL NORMAL > or = 60 mg/dl - LO W CARDIOVASCULAR RISK <40 mg/dl - HIGH CARDIOVASCULAR RISK Normal [facility] Comment on above: Performed By: #### C MP, FT3, LIPID, T4, TSH #### [facility] [address] [address] [address] Linnea Jane LDL CALC NORMAL SEE BELOW Normal [facility] Comment on above: Result Comment: <100 mg/dl OPTIMAL 100 - 129 mg/dl NEAR OR ABOVE OPTIMAL 130 - 159 mg/dl BORDERLINE HIGH 160 - 189 mg/dl HIGH >190 mg/dl VERY HIGH Performed By: #### C MP, FT3, LIPID, T4, TSH #### [facility] [address] [address] [address] Linnea Jane Triglyceride [Mass/Vol] 89 mg/dL Normal <=150 [facility] Comment on above: Performed By: #### C MP, FT3, LIPID, T4, TSH #### [facility] [address] [address] [address] Linnea Jane VLDL CALC 17.8 mg/dL Normal [facility] Comment on above: Performed By: #### C MP, FT3, LIPID, T4, TSH #### [facility] [address] [place] [address] Dr. Linnea Jane PROF 14(COMP METB)on 023 Albumin [Mass/Vol] 3.2 g/dL Critically low 3.4-5.0 [facility] Comment on above: Performed By: #### C MP, FT3, LIPID, T4, TSH #### [facility] [address] [place] [address] Dr. Linnea Jane Albumin/Globulin [Mass ratio] 1.0 {ratio} Normal [facility] Comment on above: Performed By: #### C MP, FT3, LIPID, T4, TSH #### [facility] [address] [place] [address] Dr. Linnea Jane ALP [Catalytic activity/Vol] 77 U/L Normal 46-116 [facility] Comment on above: Performed By: #### C MP, FT3, LIPID, T4, TSH #### [facility] [address] [place] [address] Dr. Linnea Jane ALT [Catalytic activity/Vol] 36 U/L Normal 14-59 [facility] Comment on above: Performed By: #### C MP, FT3, LIPID, T4, TSH #### [facility] [address] [place] [address] Dr. Linnea Jane Anion gap [Moles/Vol] 9.7 mmol/L Normal [facility] Comment on above: Performed By: #### C MP, FT3, LIPID, T4, TSH #### [facility] [address] [place] [address] Dr. Linnea Jane AST [Catalytic activity/Vol] 20 U/L Normal 15-37 [facility] Comment on above: Performed By: #### C MP, FT3, LIPID, T4, TSH #### [facility] [address] [place] [address] Dr. Linnea Jane Bilirubin [Mass/Vol] 0.5 mg/dL Normal 0.2-1.0 [facility] Comment on above: Performed By: #### C MP, FT3, LIPID, T4, TSH #### [facility] [address] [place] [address] Dr. Linnea Jane Calcium [Mass/Vol] 9.3 mg/dL Normal 8.5-10.1 [facility] Comment on above: Performed By: #### C MP, FT3, LIPID, T4, TSH #### [facility] [address] [place] [address] Dr. Linnea Jane Chloride [Moles/Vol] 104 mmol/L Normal 98-107 [facility] Comment on above: Performed By: #### C MP, FT3, LIPID, T4, TSH #### [facility] [address] [place] [address] Dr. Linnea Jane CO2 [Moles/Vol] 31.7 mmol/L Normal 21.0-32.0 [facility] Comment on above: Performed By: #### C MP, FT3, LIPID, T4, TSH #### [facility] [address] [place] [address] Dr. Linnea Jane Creatinine [Mass/Vol] 0.63 mg/dL Normal 0.55-1.02 [facility] Comment on above: Performed By: #### C MP, FT3, LIPID, T4, TSH #### [facility] [address] [place] [address] Dr. Linnea Jane EGFR-AF TUNISIAN >60 Normal >=60 [facility] Comment on above: Performed By: #### C MP, FT3, LIPID, T4, TSH #### [facility] [address] [place] [address] Dr. Linnea Jane EGFR-NON AF TUNISIAN >60 Normal >=60 [facility] Comment on above: Performed By: #### C MP, FT3, LIPID, T4, TSH #### [facility] [address] [place] [id number] Dr. Linnea Jane Globulin (S) [Mass/Vol] 3.1 g/dL Normal [facility] Comment on above: Performed By: #### C MP, FT3, LIPID, T4, TSH #### [facility] [address] [place] [address] Dr. Linnea Jane Glucose [Mass/Vol] 131 mg/dL Critically high 74-106 [facility] Comment on above: Performed By: #### C MP, FT3, LIPID, T4, TSH #### [facility] [address] [place] [address] Dr. Linnea Jane Potassium [Moles/Vol] 3.4 mmol/L Critically low 3.5-5.1 [facility] Comment on above: Performed By: #### C MP, FT3, LIPID, T4, TSH #### [facility] [address] [place] [address] Dr. Linnea Jane Protein [Mass/Vol] 6.3 g/dL Critically low 6.4-8.2 [facility] Comment on above: Performed By: #### C MP, FT3, LIPID, T4, TSH #### [facility] [address] [place] [address] Dr. Linnea Jane Sodium [Moles/Vol] 142 mmol/L Normal 136-145 [facility] Comment on above: Performed By: #### C MP, FT3, LIPID, T4, TSH #### [facility] [address] [place] [address] Dr. Linnea Jane Urea nitrogen [Mass/Vol] 22.0 mg/dL Critically high 7.0-18.0 [facility] Comment on above: Performed By: #### C MP, FT3, LIPID, T4, TSH #### [facility] [address] [place] [address] Dr. Linnea Jane Urea nitrogen/Creatinine [Mass ratio] 34.9 mg/mg Normal [facility] Comment on above: Performed By: #### C MP, FT3, LIPID, T4, TSH #### [facility] [address] [place] [address] Dr. Linnea Jane T4on 11-04-2022 T4 [Mass/Vol] 8.50 ug/dL Normal 4.80-13.90 [facility] Comment on above: Performed By: #### C MP, FT3, LIPID, T4, TSH #### [facility] [address] [place] [address] Dr. Linnea Jane TSHon 11-04-2022 TSH 0.590 uIU/mL Normal 0.358-3.740 [facility] Comment on above: Performed By: #### C MP, FT3, LIPID, T4, TSH #### [facility] [address] [place] [address] Dr. Linnea Jane VITAMIN D 25 OHon 11-04-2022 VIT D 25-OH 140.4 ng/mL Normal [facility] Comment on above: Performed By: #### V ITAD #### [facility] [address] [place] [address] Dr. Linnea Jane VIT D RANGES SEE BELOW Normal [facility] Comment on above: Result Comment: <20 ng/mL Vit D deficient 20 - <30 ng/mL Vit D insufficient 30 - 100 ng/mL Vit D sufficient >100 ng/mL Potential Toxicity Performed By: #### V ITAD #### [facility] [address] [place] [address] Dr. Linnea Jane HEPATITIS B CORE, IgMon 12-0 Hep B Core Ab, IgM Negative Normal Negative [facility] Comment on above: Performed By: #### H EPBCOR #### [facility] [address] [place] [address] Dr. Linnea Jane MRI BRAIN WO W CONon 09-17- 022 MRI BRAIN WO W CON EXAMINATION: [...] by: NEGRO BLACKMON Date: 2022-09-17 07:22 Normal [facility] XR FOREIGN BODY EYEon 2021 XR FOREIGN BODY EYE EXAMINATION: XR FOREIGN BODY EYE HISTORY: Foreign body in eye ; pre-MRI COMPARISON: No relevant comparison available. FINDINGS: ORBITS: Negative for a metallic foreign body. OTHER: Negative. IMPRESSION: 1. No metallic foreign body within the orbits. Electronically authenticated by: NEGRO BLACKMON Date: 2022-09-16 15:08 Normal [facility] Vital Signs Date Time Vital Sign Value Performing Clinician Faci lity 05-24-2025 10:59-0400 Body height 157.5 cm Marshal Dodge MD Work Phone: [facility] 05-24-2025 10:59-0400 Body mass index (BMI) [Ratio] 19.2 kg/m2 Marshal Dodge MD Work Phone: [facility] 05-24-2025 10:59-0400 Body weight 47.63 kg Marshal Dodge MD Work Phone: [facility] 05-24-2025 10:59-0400 Diastolic blood pressure 95 mm[Hg] Marshal Dodge MD Work Phone: [facility] 05-24-2025 10:59-0400 Heart rate 105 /min Marshal Dodge MD Work Phone: [facility] 05-24-2025 10:59-0400 Systolic blood pressure 135 mm[Hg] Marshal Dodge MD Work Phone: [facility] 02-22-2025 14:43-0400 Body height 160 cm Marshal Dodge MD Work Phone: [facility] 02-22-2025 14:43-0400 Body mass index (BMI) [Ratio] 18.6 kg/m2 Marshal Dodge MD Work Phone: [facility] 02-22-2025 14:43-0400 Body weight 47.63 kg Marshal Dodge MD Work Phone: [facility] Encounters Encounter Date Encounter Type Care Provider Facility Start: 05-24-2025 End: 05-24-2025 Bamboo flowsheet Marshal Dodge MD Work Phone: [facility] Start: 05-24-2025 End: 05-24-2025 Bamboo flowsheet Marshal Dodge MD Work Phone: [facility] Start: 05-24-2025 End: 05-24-2025 Office outpatient visit 25 minutes Marshal Dodge MD Work Phone: [facility] Comment on above: Multiple sclerosis ( HCC) Start: 05-24-2025 End: 05-24-2025 ambulatory MARSHAL DODGE Not Available Start: 04-24-2025 End: 04-24-2025 ambulatory [facility] Start: 04-03-2025 End: 04-03-2025 Telephone encounter Federica Romano NP Work Phone: [facility] Start: 03-13-2025 End: 03-13-2025 Refill Federica Romano NP Work Phone: [facility] Comment on above: Multiple sclerosis ( CMS/HCC); Acute relapsing multiple sclerosis (CMS/HCC) Start: 02-22-2025 End: 02-22-2025 Office outpatient visit 25 minutes Marshal Dodge MD Work Phone: [facility] Comment on above: Vertigo of central o rigin (Primary Dx); Multiple sclerosis (CMS/HCC); Acute relapsing multiple sclerosis (CMS/HCC) Start: 02-22-2025 End: 02-22-2025 ambulatory MARSHAL DODGE Not Available Start: 02-22-2025 End: 02-22-2025 Bamboo flowsheet Marshal Dodge MD Work Phone: [facility] Start: 02-22-2025 End: 02-22-2025 Bamboo flowsheet Marshal Dodge MD Work Phone: [facility] Start: 12-13-2024 End: 12-14-2024 Telephone encounter Marshal Dodge MD Work Phone: [facility] Start: 11-23-2024 End: 11-23-2024 Office outpatient visit 25 minutes Marshal Dodge MD Work Phone: [facility] Comment on above: Vertigo of central o rigin (Primary Dx); Acute relapsing multiple sclerosis (CMS/HCC) Start: 11-23-2024 End: 11-23-2024 ambulatory MARSHAL DODGE Not Available Start: 11-23-2024 End: 11-23-2024 Bamboo flowsheet Marshal Dodge MD Work Phone: [facility] Start: 11-23-2024 End: 11-23-2024 Bamboo flowsheet Marshal Dodge MD Work Phone: [facility] Start: 11-21-2024 End: 11-21-2024 Refill Dee Farrar LPN [facility] Comment on above: Multiple sclerosis ( CMS/HCC) Start: 09-21-2024 End: 09-22-2024 Refill Marshal Dodge MD Work Phone: [facility] Comment on above: Multiple sclerosis ( CMS/HCC) Start: 08-29-2024 End: 08-29-2024 Orders Only Federica Romano UPHOLSTERY TRIMMER Work Phone: [facility] Comment on above: Cerebellar infarctio n (CMS/HCC) (Primary Dx); Other fatigue; Memory loss Start: 07-26-2024 End: 07-26-2024 Refill Marshal Dodge MD Work Phone: [facility] Comment on above: Multiple sclerosis ( CMS/HCC) (Primary Dx) Start: 06-15-2024 End: 06-15-2024 ambulatory CARLOS MARTIN Not Available Start: 11-17-2022 Encounter for genera l adult medical examination without abnormal findings DR KRISHAN BURCIAGA [facility] Start: 11-17-2022 End: 02-16-2023 ambulatory Marshal Dodge Facility:[facility] Start: 11-04-2022 End: 11-05-[address] KRISHAN BURCIAGA Facility:[facility] Start: 11-04-2022 End: 11-05-2022 Encounter for general adult medical examination without abnormal findings DR KRISHAN BURCIAGA Facility:[facility] Start: 10-09-2022 End: 10-10-[address] DOCTOR WINKLER Facility:[facility] Start: 09-16-2022 End: 09-17-[address] DOCTOR WINKLER Facility:[facility] Start: 12-31-[address] KRISHAN BURCIAGA Facility :[facility] Start: 06-26-2016 End: 06-27-2016 Ambulatory LELE CLAYTON Facility:[facility] Plan of Treatment Date Care Activity Detail Author Start: 08-16-2025 End: 08-16-2025 Patient encounter procedure 08/16/2025 11:20 AM EDT Office Visit [facility] [address] [facility] [address] [place] [address] Marshal Dodge MD [address] [facility] [address] [place] [place] [address] [id number] [facility] Start: 07-03-2025 Influenza vaccination Influenza Vacc ine (#1) [facility] Start: 05-24-2025 End: 05-24-2025 Patient encounter procedure [facility] Comment on above: Arrived Start: 02-22-2025 End: 02-22-2025 Patient encounter procedure [facility] Comment on above: Arrived Start: 11-23-2024 End: 11-23-2024 Patient encounter procedure [facility] Comment on above: Arrived Start: 08-22-2024 End: 08-22-2024 Patient encounter procedure 08/22/2024 2:20 PM EDT Office Visit [facility] [address] [place] [address] Marshal Dodge MD [address] [facility] [address] [id number] [facility] Start: 07-03-2024 Influenza vaccination Influenza Vacc ine (#1) [facility] Start: 2011 Screening for malign ant neoplasm of breast Mammogram [facility] Start: 2001 Screening for malign ant neoplasm of cervix [facility] Start: 1992 Screening for malign ant neoplasm of cervix Pap Smear [facility] Start: 1971 Screening for malign ant neoplasm of colon [facility] Immunizations Immunization Date Immunization Notes Care Provider Fa [facility] 08-26-2024 influenza virus vacc ine, unspecified formulation Marshal Dodge MD Work Phone: [facility] 09-03-2022 influenza virus vacc ine, unspecified formulation Marshal Dodge MD Work Phone: [facility] Payers Date Payer Category Payer Medicare (Managed Care) [employer] [id number] 2021 Private Health Insurance [id number] 2019 Medicaid [id number] 1971 Unknown [id number]. 593 1971 Unknown [id number]. 593 1971 Unknown [id number]. 593 1971 Unknown [id number]. 593 1971 Unknown [id number] 727 1971 Unknown [id number]. 1259 1971 Unknown [id number]. 1259 1971 Unknown [id number]. 1259 1971 Unknown [id number] 1259 1959 Medicaid [id number] 1958 Medicare [id number] 1958 Self-pay Medicare [id number] Social History Date Type Detail Facility Start: 04-30-2023 Tobacco smoking stat [facility] Never smoked tobacco [facility] Start: 04-30-2023 Tobacco use and exposure Smoke less tobacco non-user [facility] Start: 06-15-2024 End: 05-24-2025 Alcoholic beverage intake Lifetime non-drinker (finding) [facility] Start: 06-15-2024 End: 05-24-2025 History of Social function [facility] Start: 06-15-2024 End: 05-24-2025 Tobacco use panel [facility] Start: 1971 Sex assigned at Not on file [facility] Medical Equipment Procedure Code Equipment Code Equipment Origin al Text Equipment Identifier Dates 1 each by Other route if needed. Start: 11-07-2022 Clinical Notes 07-26-2024 to 05-24-2025 Marshal Dodge MD - 05/24/2025 11:00 AM EDTTelephone Encounter - Federica Romano NP - 04/03/2025 10:26 AM EDTTelephone Encounter - Federica Romano NP - 04/03/2025 10:26 AM EDT Note Date & Type Note Facility 05-24-2025 History of Present illness Narrative Images from the original note were not included. Subjective Jami Connors is a 55 y.o. female who presents for Multiple Sclerosis and Vertigo History of Present Illness The patient presents for evaluation of C. difficile and MRSA infections, multiple sclerosis, and medication management. She has been residing at [facility], where she receives physical and occupational therapy from Thursday to Thursday. It has been almost 2 months since she has been home. She was previously hospitalized for approximately 1.5 weeks due to a C. difficile infection, which led to a MRSA infection following antibiotic treatment. During her hospital stay, she experienced a significant decline in health, including a loss of appetite and weight loss. Admission to the hospital was non-consensual after failing a mental competency test. She is unsure if the infections have completely cleared from her system as blood work will only be done after her last dose of vancomycin, which is scheduled [facility]. She has been on vancomycin for nearly 2 months and continues to experience diarrhea. Her strength has improved significantly since her admission to [facility], where she has been undergoing physical therapy. She is now able to walk with a walker and can cover a distance of 260 feet without taking a break. She also uses a stationary bike for 10 minutes during her therapy sessions. Her Ocrevus treatment is overdue, with the last dose administered in early May 2025. She has used up all her Arthrogel and did not get it refilled, so the refills are probably by now. MEDICATIONS CURRENT MEDS: Zanaflex Ocrevus PREVIOUS MEDS: Vancomycin Start Date: 03/2025 End Date: 05/24/2025 Reason for Discontinuation: Completion of course Arthrogel Reason for Discontinuation: Ran out of medication Review of Systems Const: Denies appetite change, [...] positive findings, which shall supersede the foregoing. Objective Blood pressure (!) 135/95, pulse 105, height 5' 2 , weight 105 lb. Physical Exam Motor Examination Strength: Strength is improving. Able to lift leg better. And stregth is 4/5 uppers and lowers proximal and distal. Gait and Station Gait: Walking with a walker, able to walk 260 feet. Results Assessment & Plan 1. Clostridium difficile infection: this caused an MS exacerbation She has been on vancomycin for nearly 2 months, which was started during her hospital stay. She reports ongoing diarrhea. Blood work will be done after her last dose of vancomycin, which is scheduled for after midnight tonight, to ensure the infection is cleared. She has not had her Ocrevus and is about 2 weeks late 2. Methicillin-resistant Staphylococcus aureus infection. She was diagnosed with MRSA following her C. difficile infection. She has been on vancomycin for nearly 2 months. Blood work will be done after her last dose of vancomycin to ensure the infection is cleared. 3. Multiple sclerosis. Her Ocrevus treatment is overdue, with the last dose administered in early May 2025. Once the infection is resolved, Ocrevus can be administered 2 weeks later. 4. Medication management. A prescription for Zanaflex will be sent to [facility] for a 3-month supply. A new prescription for Arthrogel will also be provided. documented in this encounter [facility] 04-24-2025 Note [place] [facility] - [facility] Subjective Jami Connors is a 55 y.o. year old female patient being seen to re-establish care as a new patient. Patient states she had a positive blood culture, and they seen something else in her blood and the Alona Valentino wanted her to see Cardiology. Patient states she seen Dr. Lino and Dr. Clayton years ago per ER DrDaniel For a stroke and a small heart attach. Patient denies cardiac symptoms at this time. Patient Active Problem List Diagnosis Acute non-ST segment elevation myocardial infarction (CMS/HCC) Acute relapsing multiple sclerosis (CMS/HCC) Anxiety Cellulitis Cerebellar infarction (CMS/HCC) Dizziness Fatigue Hypertensive disorder Irritable bowel syndrome (IBS) Myalgia Myocardial infarction (CMS/HCC) Osteoarthritis of knee Type 2 diabetes mellitus (CMS/HCC) Vertigo of central origin Vitamin D deficiency Family History Problem Relation Name Age of Onset Heart failure Mother Heart attack Father Cancer Sister Social History Tobacco Use Smoking status: Never Passive exposure: Never Smokeless tobacco: Never Substance Use Topics Alcohol use: Not Currently Drug use: Never HPI Argelia is seen as a new patient referred from Dr. Burciaga's office for consideration of transesophageal echocardiogram given positive blood cultures. She is a 55-year-old woman with prior medical history of normal coronary arteries by cardiac catheterization performed in 2014 following presentation with NSTEMI, history of hypertension and hyperlipidemia. She was previously seen in our office last visit on 12/23/2021. At that time she was doing okay with a plan for follow-up in 6 months with continued medical therapy however she never followed up with us. her medical history significant for multiple sclerosis on treatment. recently she has been in the hospital with recurrent C. difficile. She has been treated with p.o. antibiotics and recently she was started on IV antibiotics with vancomycin via a PICC line. Over the course of the past illness she was found to have positive blood cultures 3 times for Staphylococcus capitis. Today she reports that she has been feeling about the same. She has no chills or fevers. She just feels weak and tired. Her ambulation is limited due to her multiple sclerosis. She is currently at [facility] for rehab. She denies chest pain and shortness of breath and leg edema. Review of Systems Constitutional: Positive for malaise/fatigue. Musculoskeletal: Positive for back pain and muscle weakness. Objective Visit Vitals BP 113/84 (BP Location: Right arm, Patient Position: Sitting) Pulse (!) 112 Ht 1.651 m (5' 5 ) Wt 53.5 kg (118 lb) SpO2 96% BMI 19.64 kg/m??? Smoking Status Never BSA 1.57 m??? Physical Exam Constitutional: Appearance: She is well-developed. She is not ill-appearing. Comments: thin appearing HENT: Head: Normocephalic and atraumatic. Nose: Nose normal. Eyes: General: No scleral icterus. Pupils: Pupils are equal, round, and reactive to light. Neck: Thyroid: No thyromegaly. Vascular: No JVD. Cardiovascular: Rate and Rhythm: Regular rhythm. Tachycardia present. Pulses: Radial pulses are 2+ on the right side and 2+ on the left side. Heart sounds: Normal heart sounds. No murmur heard. No friction rub. No gallop. Pulmonary: Effort: Pulmonary effort is normal. No respiratory distress. Breath sounds: Normal breath sounds. No wheezing or rales. Chest: Chest wall: No tenderness. Abdominal: General: Bowel sounds are normal. There is no distension. Palpations: Abdomen is soft. Tenderness: There is no abdominal tenderness. Musculoskeletal: General: No swelling. Cervical back: Neck supple. Comments: In wheelchair Skin: General: Skin is warm and dry. Neurological: General: No focal deficit present. Mental Status: She is alert and oriented to person, place, and time. Psychiatric: Mood and Affect: Mood normal. Behavior: Behavior is cooperative. Judgment: Judgment normal. Allergies Allergies Allergen Reactions Atorvastatin Unknown Other Reaction(s): Myalgias (Muscle Pain) Hydralazine Unknown Other Reaction(s): Tachycardia Penicillins Unknown Other Reaction(s): Not available Sulfa (Sulfonamide Antibiotics) Unknown Medications Current Outpatient Medications: aspirin 81 mg EC tablet, Take 81 mg by mouth in the morning., Disp: , Rfl: atorvastatin (Lipitor) 20 mg tablet, Take 20 mg by mouth two times daily., Disp: , Rfl: busPIRone (Buspar) 7.5 mg tablet, Take 7.5 mg by mouth three times daily., Disp: , Rfl: cloNIDine (Catapres-TTS) 0.1 mg/24 hr, Place 1 patch on the skin 1 (one) time per week., Disp: , Rfl: fesoterodine 8 mg tablet extended release 24 hr, Take 1 tablet by mouth in the morning., Disp: , Rfl: fluconazole (Diflucan) 200 mg tablet, Take 100 mg by mouth 1 (one) time., Disp: , Rfl: magnesium oxide (M (more content not included)... [facility] 04-03-2025 Telephone encounter Note leaves voicemail that is in hospital and asking if she should be seen sooner. She already does have appointment in May with Dodge is next available unless Yuliya has opening. Please call back and ask what she is being hospitalized for. [facility] 04-03-2025 Miscellaneous Notes leaves voicemail that is in hospital and asking if she should be seen sooner. She already does have appointment in May with Dodge is next available unless Yuliya has opening. Please call back and ask what she is being hospitalized for. documented in this encounter [facility] 03-13-2025 Telephone encounter Note Patient calls for Acthar refill. I sent to [facility]? She was asking for call back. [facility] 03-13-2025 Miscellaneous Notes Patient calls for Acthar refill. I sent to [facility]? She was asking for call back. documented in this encounter [facility] 02-22-2025 History of Present illness Narrative [...] times daily cholecalciferol (Vitamin D-3) 1.25 MG (59176 UT) capsule 1 capsule, Oral, Weekly cloNIDine [...] in all four extremities, including at least senior it project manager, finger abductors, biceps, triceps, deltoid, toe flexors [...] improve fall risk documented in this encounter [facility] 12-14-2024 Telephone encounter Note Insurance is questioning dose when they run her dose it is over the maximum dose and we need to call them and do an override to approve the dose so they can administer the medication. She is emailing me the verbage they want. [facility] Work Phone: 12-14-2024 Miscellaneous Notes Insurance is questioning dose when they run her dose it is over the maximum dose and we need to call them and do an override to approve the dose so they can administer the medication. She is emailing me the verbage they want. Hans from [facility] left message requesting call back regarding patient. [phone] documented in this encounter [facility] 12-13-2024 Telephone encounter Note Hans from [facility] left message requesting call back regarding patient. [phone] [facility] 11-23-2024 History of Present illness Narrative [...] times daily cholecalciferol (Vitamin D-3) 1.25 MG (55187 UT) capsule 1 capsule, Oral, Weekly cloNIDine [...] in all four extremities, including at least senior it project manager, finger abductors, biceps, triceps, deltoid, toe flexors [...] improve fall risk documented in this encounter [facility] 11-21-2024 Telephone encounter Note Patient left additional message requesting status of Ocrevus order. She states she is scheduled for this but insurance is requesting PA status. [facility] 11-21-2024 Miscellaneous Notes Patient left additional message requesting status of Ocrevus order. She states she is scheduled for this but insurance is requesting PA status. Tizanidine refill request sent to provider. Patient requesting 90 day supply to [facility]. Last appt documented in this encounter [facility] 11-21-2024 Telephone encounter Note Tizanidine refill request sent to provider. Patient [facility] supply [facility]. Last appt [facility] 08-29-2024 History of Present illness Narrative [facility] memory testing ordered, referral placed and sent to patient to complete. documented in this encounter [facility] 07-26-2024 Telephone encounter Note sent [facility] 07-26-2024 Miscellaneous Notes sent Patient called and states that she was trying to get refill of Buspar 7.5mg TID and pharmacy advised rx was cancelled. Please resend to [facility] in [place]. Advised patient per system it was cancelled on 06/15/24 which looks like was done by provider office she seen that day. Advised would get message over to provider for refill to be resent to pharmacy. Pt verbalized understanding. documented in this encounter [facility] 07-26-2024 Telephone encounter Note Patient called and states that she was trying to get refill of Buspar 7.5mg TID and pharmacy advised rx was cancelled. Please resend to [facility] in [place]. Advised patient per system it was cancelled on 06/15/24 which looks like was done by provider office she seen that day. Advised would get message over to provider for refill to be resent to pharmacy. Pt verbalized understanding. [facility] Evaluation note Diagnosis Cerebellar infarction (CMS/HCC)- [...] [facility] Diagnosis Multiple sclerosis (HCC) Multiple sclerosis documented in this encounter [facility] [...] section and content) DATE CREATED AUTHOR 04/28/2018 [facility] DATE CREATED AUTHOR AUTHOR'S ORGANIZ ATION 11/18/2022 [facility] DATE CREATED AUTHOR AUTHOR'S ORGANIZ ATION 02/16/2023 [facility] DATE CREATED AUTHOR AUTHOR'S ORGANIZ ATION 04/25/2025 [facility] DATE CREATED AUTHOR AUTHOR'S ORGANIZ ATION 05/25/2025 [facility] EPIC Care Teams (unrecognized sec tion and content) Manager Of Sustainability Relationship Specialty Start Date End Date Krishan Burciaga MD [address] [place] [address] PCP - General Family Medicine 06/15/24 Manager Of Sustainability Relationship Specialty Start Date End Date Krishan Burciaga MD [address] [place] [facility] [place] [address] PCP - General Family Medicine 06/15/24 Manager Of Sustainability Relationship Specialty Start Date End Date Krishan Burciaga MD [address] [place] [facility] [place] [address] PCP - General Family Medicine 06/15/24 Manager Of Sustainability Relationship Specialty Start Date End Date Krishan Burciaga MD [address] [place] [facility] [place] [address] PCP - General Family Medicine 06/15/24 Manager Of Sustainability Relationship Specialty Start Date End Date Krishan Burciaga MD [address] [place] [facility] [place] [address] PCP - General Family Medicine 06/15/24 Manager Of Sustainability Relationship Specialty Start Date End Date Krishan Burciaga MD [address] [place] [facility] [address] PCP - General Family Medicine 06/15/24 Manager Of Sustainability Relationship Specialty Start Date End Date Krishan Burciaga MD PCP - General Family Medicine 06/15/24 Manager Of Sustainability Relationship Specialty Start Date End Date Krishan Burciaga MD PCP - General Family Medicine 06/15/24 Manager Of Sustainability Relationship Specialty Start Date End Date Krishan Burciaga MD PCP - General Family Medicine 06/15/24 Manager Of Sustainability Relationship Specialty Start Date End Date Krishan Burciaga MD PCP - General Family Medicine 06/15/24 Reason for Visit (unrecogniz ed section and content) Reason Comments Med Refill Reason Comments Multiple Sclerosis Vertigo FOR RECORDS PERTAINING TO PATIENTS WHO ARE [...] BE BASED ON THE PRIMARY CLINICAL RECORDS. [employer] provides no warranty or guarantee of the accuracy or completeness of information in this document.
--- OUTSIDE RECORDS SUMMARY | 2025-07-03 05:38 | XMS_ITS | Clinical Summary ---
Author Organization [facility] Address [address] [place] [address] Care Team Providers Care Backfiller Name Role Phone Unavailable Primary Care Provider [...] Description 04/24/2025 10:00 AM EDT Office Visit [address] [phone] Juan Manuel Mcqueen MD Primary hypertension (Primary [...] Description 07/24/2025 1:30 PM EDT Office Visit [facility] [address] [place] [address] Juan Manuel Mcqueen MD [address] [facility] [place] [address] Health Maintenance Due Date Last [...] patient's age to complete this topic Insurance [facility] MEDICARE ADVANTAGE
--- NOTE | 2025-07-03 05:44 | PC.NURSE ---
this patient complains of vomiting onset last night around 08:30 pm. this patient was brought in by her son, but her son left.
--- NOTE | 2025-07-03 06:02 | ED.NAVMDI1 ---
HPI - Nausea/Vomiting/Diarrhea General Chief complaint: Nausea/Vomiting/Diarrhea Stated complaint: VOMITING Time Seen by Provider: 07/03/25 05:46 Source: patient Mode of arrival: Wheelchair Limitations: no limitations History of Present Illness HPI Narrative: past history of MS. Receives infusion therapy q6 months but missed her last infusion and it is scheduled in 3 days. Presents with recurrent vomiting that started last PM. No diarrhea. No hematemesis. Has abdominal pain but does not want any pain medication. No fever or chills. States last time she presented with vomiting she became dehydrated Related Data Home Medications ?Medication ?Instructions ?Recorded ?Confirmed buspirone 7.5 mg tablet 7.5 mg PO TID 03/22/24 04/14/25 potassium chloride 10 mEq 20 meq PO BID 03/22/24 04/14/25 tablet,extended release tizanidine 4 mg tablet 8 mg PO TID PRN muscle spasticity 03/22/24 04/14/25 fesoterodine 8 mg tablet,extended 8 mg PO QDAY 03/31/25 04/14/25 release 24 hr Lactobacillus acidoph-L.bulgaricus 1 tab PO BID 04/04/25 04/14/25 1 million cell tablet (Floranex) atorvastatin 20 mg tablet 20 mg PO QPM 04/14/25 04/14/25 Previous Rx's ?Medication ?Instructions ?Recorded clonidine 0.1 mg/24 hr weekly 1 patch transdermal QWEEK #4 ea 04/03/25 transdermal patch magnesium oxide 400 mg (241.3 mg 400 mg PO BID #60 tabs 04/03/25 magnesium) tablet pantoprazole 40 mg tablet,delayed 40 mg PO ACB #30 tabs 04/03/25 release vancomycin 250 mg capsule 250 mg PO QID 10 days #40 caps 04/03/25 amino acids-protein hydrolysate 15 1 ea PO BID #2,880 mL 04/06/25 gram-100 kcal/30 mL oral liquid pkt (Pro-Stat Sugar Free) metoprolol tartrate 50 mg tablet 50 mg PO BID #60 tabs 04/06/25 Allergies Allergy/AdvReac Type Severity Reaction Status Date / Time Penicillins Allergy Severe Rash Verified 07/03/25 05:41 Sulfa (Sulfonamide Allergy Severe Hives Verified 07/03/25 05:41 Antibiotics) Review of Systems ROS Status of ROS 10 or more systems reviewed and unremarkable except as noted in history and below [facility] Medical History (Updated 07/03/25 @ 06:47 by Armando Packer MD) Acute renal failure ?N17.9 - Acute kidney failure, unspecified (ICD-10) Elevated liver enzymes ?R74.8 - Abnormal levels of other serum enzymes (ICD-10) Hypokalemia ?E87.6 - Hypokalemia (ICD-10) Acute non-ST elevation myocardial infarction (NSTEMI) ?I21.4 - Non-ST elevation (NSTEMI) myocardial infarction (ICD-10) Severe protein-calorie malnutrition ?E43 - Unspecified severe protein-calorie malnutrition (ICD-10) Diabetes mellitus ?E11.9 - Type 2 diabetes mellitus without complications (ICD-10) Pressure ulcer of coccygeal region ?L89.159 - Pressure ulcer of sacral region, unspecified stage (ICD-10) Leukocytosis ?D72.829 - Elevated white blood cell count, unspecified (ICD-10) Acute urinary retention ?R33.8 - Other retention of urine (ICD-10) Elevated blood sugar ?R73.9 - Hyperglycemia, unspecified (ICD-10) Hematuria ?R31.9 - Hematuria, unspecified (ICD-10) IAN (acute kidney injury) ?N17.9 - Acute kidney failure, unspecified (ICD-10) Leukocytosis ?D72.829 - Elevated white blood cell count, unspecified (ICD-10) Colitis ?K52.9 - Noninfective gastroenteritis and colitis, unspecified (ICD-10) Cellulitis ?L03.90 - Cellulitis, unspecified (ICD-10) Encounter for cholecystectomy ?Z76.89 - Persons encountering health services in other specified circumstances (ICD-10) Multiple sclerosis ?G35 - Multiple sclerosis (ICD-10) HTN (hypertension) ?I10 - Essential (primary) hypertension (ICD-10) Surgical History H/O hysterectomy for benign disease ?Z90.710 - Acquired absence of both cervix and uterus (ICD-10) Social History (Updated 04/04/25 @ 15:40 by Leah Lees RN) Within the past year, how often did you have a drink containing alcohol: never Score interpretation: A score less than 3 is consistent with normal alcohol consumption. Smoking status: Never smoker Non-prescribed substance use: denies use Previous occupational history: disabled Known occupational exposures/hazards: No Highest level of school completed/degree received: some college, no degree Are you now , , , , never or living with a partner: Little interest or pleasure in doing things: not at all Feeling down, depressed, or hopeless: not at all Feel stressed/tense/nervous/anxious/difficulty sleeping: to some extent Due to disability, difficulty making decisions: No Do you think of yourself as: straight/heterosexual Gender Identity: female Exam Constitutional Vital Signs, click to edit/add: Last Vital Signs Temp 98.4 F 07/03/25 05:41 Pulse 138 H 07/03/25 05:41 Resp 19 07/03/25 05:41 BP 187/118 H 07/03/25 05:41 Pulse Ox 99 07/03/25 05:41 O2 Del Method Room Air 07/03/25 05:41 Common normals: no apparent distress, average body habitus, oriented x3, no limitations, healthy appearing, alert and well nourished [facility] Common normals: normocephalic and head/scalp atraumatic Eye Common normals: EOMs intact bilaterally and conjunctivae normal Respiratory Common normals: normal respiratory effort, no retractions, no use of accessory muscles and clear to auscultation bilaterally Cardio Common normals: regular rate, regular rhythm, S1 normal heart sound and S2 normal heart sound GI Common normals: Normal to inspection, nondistended, normoactive bowel sounds present and soft to palpation Other: mild RLQ tenderness. No guarding Extremity Common normals: normal to inspection and full ROM Neuro Common normals: oriented x3, CN's II-XII intact bilaterally, moves all extremities and no focal motor deficits Psych Appearance: grossly normal Course Vital Signs Vital signs: Vital Signs Temperature 98.4 F 07/03/25 05:41 Pulse Rate 138 H 07/03/25 05:41 Respiratory Rate 19 07/03/25 05:41 Blood Pressure 187/118 H 07/03/25 05:41 Pulse Oximetry 99 07/03/25 05:41 Oxygen Delivery Method Room Air 07/03/25 05:41 Temperature 98.4 F 07/03/25 05:41 Pulse Rate 138 H 07/03/25 05:41 Respiratory Rate 19 07/03/25 05:41 Blood Pressure 187/118 H 07/03/25 05:41 Pulse Oximetry 99 07/03/25 05:41 Oxygen Delivery Method Room Air 07/03/25 05:41 MDM - Nausea/Vomiting/Diarrhea MDM Narrative Medical decision making narrative: patient presents with recurrent vomiting. Not able to keep down liquids. Has mild RLQ pain. IV hydration and antiemetics ordered. CT abd/pelvis pending. care transferred to Dr Tran at change of shift Lab Data Labs: Lab Results 07/03/25 Range/Units 06:35 WBC 9.0 (4.0-11.0) 10^3/uL RBC 4.75 (4.20-5.40) 10^6/uL Hgb 13.7 (12.0-16.0) g/dL Hct 41.5 (36.0-48.0) % MCV 87.4 (81.0-99.0) fL MCH 28.8 (26.7-34.0) pg MCHC 33.0 (29.9-35.2) g/dL RDW 11.7 (11.0-15.0) % Plt Count 484 H (150-450) 10^3/uL MPV 9.3 L (9.5-13.5) fL Neut % (Auto) 77.8 H (43.0-75.0) % Lymph % (Auto) 10.7 L (20.5-60.0) % [place] % (Auto) 7.7 (1.7-12.0) % Eos % (Auto) 3.2 (0.9-7.0) % Baso % (Auto) 0.4 (0.2-2.0) % Neut # (Auto) 7.0 H (1.4-6.5) 10^3/uL Lymph # (Auto) 1.0 L (1.2-3.8) 10^3/uL [place] # (Auto) 0.7 (0.3-0.8) 10^3/uL Eos # (Auto) 0.3 (0.0-0.7) 10^3/uL Baso # (Auto) 0.0 (0.0-0.1) 10^3/uL Abs Immat Gran (auto) 0.02 (0.00-0.03) 10^3/uL Imm/Tot Granulo (auto) 0.2 (0.0-0.5) % Discharge Plan Discharge Patient Disposition: Still a Patient
--- NOTE | 2025-07-03 06:05 | CT_ITS ---
The [address] [address] Patient Name: HERMELINDO WEINBERG MRN: [id number] date: 1970 Sex: F Assigned Patient Location: ER Current Patient Location: ER Accession/Order Number: [id number] Exam Date: 07/03/2025 07:03 Report Date: 07/03/2025 08:37 At the request of: ANDI MCKENNA MD Procedure: CT abdomen pelvis w con CT ABDOMEN AND PELVIS WITH INTRAVENOUS CONTRAST: CLINICAL HISTORY: Nausea and vomiting with pain all over abdomen since last night. COMPARISON: CT abdomen and pelvis 04/05/2025 TECHNIQUE: Spiral images were obtained through the abdomen and pelvis following the administration of intravenous contrast. This CT exam was performed using one or more following dose reduction techniques: Automated exposure control, adjustment of the mA and/or kV according to patient size, or use of iterative reconstruction technique. FINDINGS: Lung Bases: [No acute process.] Organs:Gallbladder has been removed. Liver spleen pancreas adrenal glands and aorta all appear unremarkable. Subcentimeter low attenuating lesions are seen within the right kidney too small for accurate characterization. Left kidney appears unremarkable.[ GI: Stomach is grossly unremarkable. Small bowel appears nondilated. No acute colonic abnormality.[ Pelvis:[Urinary bladder is distended without focal abnormality. Uterus has been removed.] Peritoneum/Retroperitoneum:No free air or free fluid or lymphadenopathy.[ Abd wall/Bones:No acute findings. Osseous structures demonstrate degenerative change.[ CT/CT abdomen pelvis w con IMPRESSION: No acute process. Impression dictated by: Harsh Coleman Jr., D.ODaniel 07/03/2025 8:37 AM Dictation Location: AdverseEvents Electronically authenticated by: [id number] Y Date: 07/03/2025 08:37
[2025-07-03] MEDS: 0.9 % SODIUM CHLORIDE 1,000 ML 999 ML IV (06:41)
[2025-07-03 06:44] LABS: Hematocrit 41.5 % (36.0-48.0); Hemoglobin 13.7 g/dL (12.0-16.0); Immature Granulocytes Abs Auto 0.02 10^3/uL (0.00-0.03); Immature Granulocytes Pct Auto 0.2 % (0.0-0.5); Lymphocytes Absolute Auto 1.0 10^3/uL (1.2-3.8); Mean Corpuscular HGB Conc 33.0 g/dL (29.9-35.2); Mean Corpuscular Hemoglobin 28.8 pg (26.7-34.0); Mean Corpuscular Volume 87.4 fL (81.0-99.0); Platelet Count 484 10^3/uL (150-450); Red Blood Count 4.75 10^6/uL (4.20-5.40); White Blood Count 9.0 10^3/uL (4.0-11.0)
[2025-07-03 07:02] LABS: Alanine Aminotransferase 27 U/L (14-59); Albumin Globulin Ratio 0.9; Albumin Level 3.2 g/dL (3.4-5.0); Alkaline Phosphatase 164 U/L (46-116); Anion Gap 12.5; Aspartate Amino Transferase 19 U/L (15-37); Blood Urea Nitrogen 27.0 mg/dL (7.0-18.0); Calcium 9.6 mg/dL (8.5-10.1); Carbon Dioxide 27.6 mmol/L (21.0-32.0); Chloride 107 mmol/L (98-107); Estimated GFR (African America >60 (>=60 mL/min/1.73m^2); Estimated GFR (Non-African Ame >60 (>=60 mL/min/1.73m^2); Globulin 3.7 g/dL; Glucose 182 mg/dL (74-106); Lipase 62.0 U/L (16.0-77.0); Potassium 4.1 mmol/L (3.5-5.1); Sodium 143 mmol/L (136-145); Total Protein 6.9 g/dL (6.4-8.2)
[2025-07-03 07:05] LABS: Lactate/Lactic Acid 1.6 mmol/L (0.4-2.0)
[2025-07-03] MEDS: HYDRALAZINE HCL 20 MG/ML VIAL 5 MG IVP (07:27)
[2025-07-03 07:36] LABS: Glucose Urine UA 100 mg/dL (NEGATIVE)
[2025-07-03 07:46] LABS: Cast Seen? NONE SEEN #/LPF (NONE SEEN); Crystals Seen? None Seen #/HPF (None Seen); Urine Culture Indicated YES-FRMC
[2025-07-03] MEDS: DICYCLOMINE HCL 20 MG/2 ML VIAL IM (08:37)
[2025-07-03] MEDS: PROCHLORPERAZINE 10 MG/2 ML VIAL 5 MG IV (08:43)
[2025-07-03] MEDS: KETOROLAC TROMETHAMINE 30 MG/ML VIAL 15 MG IVP (09:26)
[2025-07-03] MEDS: FAMOTIDINE/PF 20 MG/2 ML VIAL IV (09:26)
[2025-07-03] MEDS: CEPHALEXIN 500 MG CAPSULE PO (11:28)
== END 2025-07-03 11:30 | disposition home or self-care (01) ==
PROVIDERS: Emergency Provider Internal Medicine; PCP Family Medicine
DX: N39.0 Urinary tract infection, site not specified (principal); K52.9 Noninfective gastroenteritis and colitis, unspecified; Z90.710 Acquired absence of both cervix and uterus
CPT/HCPCS: 36415; 74177; 80053; 81001; 83605; 83690; 84484; 85025; 87086; 87088; 87186; 87493; 96361; 96372; 96374; 96375; 99284; J0360; J0500; J0780; J1885; J2405; J3490; Q9967